=== PATIENT | male | born 1955 | race Caucasian/White ===

== ENCOUNTER → 2016-02-17 | Outpatient (CLI) | payer OTHER ==
[~2016-02-17] MED LIST: ACET-1138 PO; ACET-1311 PO; ALBUAER INH; ALPR1SUP6 INT UTER; ATEN-175 PO; ATR10 PO; BUPR-83 PO; CAPS0.022 TOP; CHOL1000 PO; CHOLCRY PO; CLC100 PO; CYCL10TA6 PO; CYM60 PO; DICL50TA3 PO; DLD/2 PO; DOXY100C76 PO; ENOX30IN4 SQ; GABA-113 PO; GLCSR500 PO; HYDR2TAB48 PO; HYDR4TAB2 PO; LIDO1CRE31 TOP; LOSA1TAB38 PO; LVNIS30 SC; LVNIS30 SQ; MOME220A INH; NRN/300 PO; OMEP20CA9 PO; OMEP40CA41 PO; OXYC-164 PO; OXYC1TAB3 PO; PROP80TA2 PO; SILD100T PO; SPRIN/30 INH; TAMS0.4C38 PO; TERA1CAP63 PO; TRAM-10 PO; TRAZ100T29 PO; ULT50X PO; VNTHFA/IN PO; WARF2TAB PO; WLLSR150 PO; ZOLP5TAB PO
[2016-02-17 10:32] LABS: PROTHROMBIN TIME (PATIENT) 10.8 SECONDS (9.0-12.0)
== END | disposition home or self-care (01) ==
LOC: C.LABSPEC 09:53
PROVIDERS: ATTEND Physical Medicine & Rehabilitation Sports Medicine
DX: Z79.01 Long term (current) use of anticoagulants (principal)

== ENCOUNTER → 2016-02-19 | Outpatient (CLI) | payer OTHER ==
[~2016-02-19] MED LIST changes: -OXYC-164 PO
[2016-02-19 10:30] LABS: PROTHROMBIN TIME (PATIENT) 10.6 SECONDS (9.0-12.0)
== END | disposition home or self-care (01) ==
LOC: C.LABSPEC 09:25
PROVIDERS: ATTEND Physical Medicine & Rehabilitation Sports Medicine
DX: Z79.01 Long term (current) use of anticoagulants (principal)

== ENCOUNTER 2016-02-21 23:29 | Emergency (ER) | payer OTHER ==
[~2016-02-21] VITALS: Ht 180.3 cm; Wt 118.2 kg
[~2016-02-21 23:29] MED LIST changes: -ACET-1138 PO; -ACET-1311 PO; -ALBUAER INH; -ALPR1SUP6 INT UTER; -ATR10 PO; -CHOL1000 PO; -CLC100 PO; -CYM60 PO; -DICL50TA3 PO; -DLD/2 PO; -DOXY100C76 PO; -ENOX30IN4 SQ; -GABA-113 PO; -GLCSR500 PO; -HYDR2TAB48 PO; -HYDR4TAB2 PO; -LIDO1CRE31 TOP; -LOSA1TAB38 PO; -LVNIS30 SQ; -MOME220A INH; -OMEP20CA9 PO; -OXYC1TAB3 PO; -PROP80TA2 PO; -SILD100T PO; -SPRIN/30 INH; -TAMS0.4C38 PO; -TRAM-10 PO; -ULT50X PO; -WLLSR150 PO
[2016-02-21 23:33] VITALS: TEMP 36.6; Ht 180.3 cm; Wt 118.2 kg
[2016-02-21] MEDS ORDERED: ONDANSETRON INJ 2 MG/ML 2 ML VIAL IV STA (23:43)
[2016-02-21] MEDS ORDERED: MoRPHine SULFATE 4 MG/ML 1 ML CARP\\VIAL IV STA (23:43)
[2016-02-21] MEDS ORDERED: SODIUM CHLORIDE 0.9% 1000ML 1,000 ML IV STA (23:43)
[2016-02-22] MEDS ORDERED: WARF2TAB PO (00:09)
[2016-02-22] MEDS ORDERED: ZOLP5TAB PO (00:10)
[2016-02-22] MEDS ORDERED: ENOX30IN4 SQ (00:14)
[2016-02-22 00:40] LABS: BASO % 0.2 %; BASO ABS # 0.01 K/uL (0-0.2); COMPLETE YES; HEMATOCRIT 32.9 % (42-52); LYMPH % 20.8 %; MEAN CORPUSCULAR HEMOGLOBIN 28.7 pg (25-34); MEAN CORPUSCULAR HGB CONC 33.7 g/dl (32-36); MEAN PLATELET VOLUME 8.7 fL (7.4-10.4); MONO % 15.4 %; NEUT % 57.6 %; PLATELET COUNT 210 K/uL (130-400); RED BLOOD COUNT 3.87 M/uL (4.7-6.1); WHITE BLOOD COUNT 6.25 K/uL (4.8-10.8)
[2016-02-22 00:54] LABS: PARTIAL THROMBOPLASTIN RATIO 1.2; PROTHROMBIN TIME (PATIENT) 10.3 SECONDS (9.0-12.0)
[2016-02-22 01:03] LABS: BUN/CREATININE RATIO 16.4 (10-20); CALCIUM 8.7 mg/dl (8.5-10.1); CREATININE 1.1 mg/dl (0.60-1.40); POTASSIUM 4.2 mmol/L (3.5-5.1)
[2016-02-22 01:05] LABS: ALB/GLOB RATIO 0.9 (0.9-2); C-REACTIVE PROTEIN 5.11 mg/dl (0-0.29)
[2016-02-22] MEDS ORDERED: OXYC1TAB3 PO (01:59)
[2016-02-22] MEDS ORDERED: OXYCODONE IR HOME PACK PO ONE (02:00)
--- NOTE | 2016-02-22 02:02 | EMERGENCY ROOM VISIT NOTE ---
History First contact with patient: 23:35 Chief Complaint: WOUND INFECTION Stated Complaint: LF LEG POSSIBLE INFECTION,FADIA 02-10 Nursing Triage Summary: Pt reports yesterday he was unable to move knee and do his exercises. Had left knee surgery February 10. Area is reddened and warm. Pt reports that knee is stiff. History of Present Illness The patient is a 61 year old male who presents to the Emergency Department by private vehicle for evaluation of his LEFT knee pain and swelling. The patient reports a total knee arthroplasty performed on 02/[address] Godoy. He had been doing well and physical therapy. He reports that yesterday he noticed increasing pain to the anterior surface knee. He reports that his red and warm as well as tender to touch. He reports decreasing range of motion secondary to discomfort and swelling. He denies a fevers or chills. He rates his current discomfort as a 10/10. He is currently using Lovenox for anticoagulation purposes to prevent development of DVT. He is currently out of his pain medication. The patient denies any fevers, chills, chest pain, palpitations, shortness breath, lethargic streaking, nausea, vomiting, or abdominal pain. Review of Systems A complete 10-point Review of Systems was discussed with the patient, with pertinent positives and negatives listed in the History of Present Illness. All remaining Review of Systems questions can be considered negative unless otherwise specified. Past Medical/Surgical History Medical Problems: (1) Abdominal pain (2) Asthma, Unspecified (3) Hypertension Nos (4) Left knee DJD (5) MRSA infection (6) Rheumatoid Arthritis Surgical Problems: (1) Carpal Tunnel Syndrome Family History Hypertension Social History Smoking Status: Never Smoker Smokeless Tobacco Use: No Alcohol Use: none Drug Use: none Marital Status: Housing Status: lives with family Occupation Status: unemployed Current/Historical Medications Scheduled Atenolol (Tenormin), 100 MG PO BID Bupropion (Wellbutrin), 150 MG PO QAM Capsaicin (Capsaicin), 0.25 % TOP BID Cholecalciferol (Bulk) (Cholecalciferol), 1,000 PO QAM Cyclobenzaprine Hcl (Flexeril), 1 TAB PO BID Duloxetine HCl (Duloxetine HCl), 1 TAB PO QAM Enoxaparin (Lovenox), 30 MG SQ Q12H Gabapentin (Neurontin), 300 MG PO BID Losartan Potassium (Cozaar), 100 MG PO QAM Mometasone Furoate (Inhalation (Asmanex Twisthaler 120 Me), 1 PUFF INH DAILY Omeprazole (Prilosec), 1 CAP PO QAM Propranolol (Inderal), 80 MG PO BID Terazosin Hcl (Hytrin), 10 MG PO HS Trazodone Hcl (Trazodone), 100 MG PO HS Scheduled PRN Albuterol Hfa (Ventolin Hfa), Unknown Dose INH QID PRN for Shortness of Breath Oxycodone Ir (Roxicodone Ir), 1-2 TAB PO Q4H PRN for Pain Zolpidem Tartrate (Ambien), 5-10 MG PO HS PRN for Anxiety/Insomnia Allergies Coded Allergies: Sulfa Antibiotics (Verified Allergy, Unknown, RASH / ITCHINESS, 02/22/16) Physical Exam Vital Signs Date Time Temp Pulse Resp B/P Pulse Ox O2 Delivery O2 Flow Rate FiO2 02/22/16 02:19 91 18 137/85 95 02/22/16 01:24 83 20 120/90 94 Room Air 02/21/16 23:33 36.6 73 20 138/77 100 Room Air Pain Rating (0-10): 10 Physical Exam VITAL SIGNS - Vital signs and nursing notes were reviewed. GENERAL - 61-year-old male appearing his stated age and in noticeable discomfort throughout the exam. MUSCULOSKELETAL - left knee with well healing incision noted midline. Kyle are in place. There is mild granular tissue with erythema noted around the incision. Moderate edema noted throughout the joint. Minimal warmth to touch. No ecchymosis. There is proximal ecchymosis. No lymphangitic streaking. NEUROLOGIC/VASCULAR - Neurovascularly intact distally with +3/5 dorsalis pedis pulses palpated bilaterally. Normal sensation to light and sharp touch appreciated distally. Medical Decision & Procedures ER Provider Diagnostic Interpretation: Small joint effusion with obvious recent postoperative kyle in place. No other acute findings per my interpretation. Radiologist's impression unavailable at the time of dictation. Radiological imaging and reports were reviewed by myself. Radiologist's Interpretation per [facility] as follows: US VENOUS LEFT LOWER EXTREMITY: Limited visualization of the mid to distal femoral vein due to edema. No evidence of DVT in the visualized left lower extremity. Complex fluid collection in the anterior medial left knee adjacent to incision site, measuring 11.5 x 2.3 x 7 cm, likely hematoma, although extremely is indeterminate. Correlate for infection. Laboratory Results 02/22/16 00:28 Red Blood Count 3.87, Mean Corpuscular Volume 85.0, Mean Corpuscular Hemoglobin 28.7, Mean Corpuscular Hemoglobin Concent 33.7, Mean Platelet Volume 8.7, Neutrophils (%) (Auto) 57.6, Lymphocytes (%) (Auto) 20.8, Monocytes (%) (Auto) 15.4, Eosinophils (%) (Auto) 5.0, Basophils (%) (Auto) 0.2, Neutrophils # (Auto ) 3.61, Lymphocytes # (Auto) 1.30, Monocytes # (Auto) 0.96, Eosinophils # (Auto ) 0.31, Basophils # (Auto) 0.01 02/22/16 00:28 Test 02/22/16 00:28 02/22/16 00:29 White Blood Count 6.25 K/uL (4.8-10.8) Red Blood Count 3.87 M/uL (4.7-6.1) Hemoglobin 11.1 g/dL (14.0-18.0) Hematocrit 32.9 % (42-52) Mean Corpuscular Volume 85.0 fL (80-100) Mean Corpuscular Hemoglobin 28.7 pg (25-34) Mean Corpuscular Hemoglobin Concent 33.7 g/dl (32-36) Platelet Count 210 K/uL (130-400) Mean Platelet Volume 8.7 fL (7.4-10.4) Neutrophils (%) (Auto) 57.6 % Lymphocytes (%) (Auto) 20.8 % Monocytes (%) (Auto) 15.4 % Eosinophils (%) (Auto) 5.0 % Basophils (%) (Auto) 0.2 % Neutrophils # (Auto) 3.61 K/uL (1.4-6.5) Lymphocytes # (Auto) 1.30 K/uL (1.2-3.4) Monocytes # (Auto) 0.96 K/uL (0.11-0.59) Eosinophils # (Auto) 0.31 K/uL (0-0.5) Basophils # (Auto) 0.01 K/uL (0-0.2) RDW Standard Deviation 40.9 fL (36.4-46.3) RDW Coefficient of Variation 13.3 % (11.5-14.5) Immature Granulocyte % (Auto) 1.0 % Immature Granulocyte # (Auto) 0.06 K/uL (0.00-0.02) Erythrocyte Sedimentation Rate 30 mm/hr (0-14) Prothrombin Time 10.3 SECONDS (9.0-12.0) Prothromb Time International Ratio 1.0 (0.9-1.1) Activated Partial Thromboplast Time 32.1 SECONDS (21.0-31.0) Partial Thromboplastin Ratio 1.2 Anion Gap 7.0 mmol/L (3-11) Est Creatinine Clear Calc Drug Dose 93.4 ml/min Estimated GFR () 84.1 Estimated GFR (Non- 72.6 BUN/Creatinine Ratio 16.4 (10-20) Calcium Level 8.7 mg/dl (8.5-10.1) Magnesium Level 2.0 mg/dl (1.8-2.4) Total Bilirubin 0.5 mg/dl (0.2-1) Aspartate Amino Transf (AST/SGOT) 18 U/L (15-37) Alanine Aminotransferase (ALT/SGPT) 29 U/L (12-78) Alkaline Phosphatase 131 U/L (45-117) C-Reactive Protein 5.11 mg/dl (0-0.29) Total Protein 7.1 gm/dl (6.4-8.2) Albumin 3.3 gm/dl (3.4-5.0) Globulin 3.8 gm/dl (2.5-4.0) Albumin/Globulin Ratio 0.9 (0.9-2) Bedside Lactic Acid Venous 1.44 mmol/L (0.90-1.70) Medications Administered Medications (Trade) Dose Ordered Sig/Tash Route Start Time Stop Time Status Last Admin Dose Admin Sodium Chloride (Nss 1000ml) 1,000 ml @ 125 mls/hr Q8H STAT IV 02/21/16 23:43 02/22/16 03:34 DC 02/22/16 00:41 125 MLS/HR Morphine Sulfate (MoRPHine SULFATE INJ) 4 mg NOW STAT IV 02/21/16 23:43 02/21/16 23:46 DC 02/22/16 00:41 4 MG Ondansetron HCl (Zofran Inj) 4 mg NOW STAT IV 02/21/16 23:43 02/21/16 23:46 DC 02/22/16 00:41 4 MG Oxycodone HCl (Roxicodone Immediate Rel 5MG Home Pack) 1 homepack UD ONCE PO 02/22/16 02:00 02/22/16 02:01 DC 02/22/16 02:14 1 HOMEPACK ED Course Patient was seen and evaluated by myself. Labs were drawn, saline lock in place. The patient was hydrated with normal saline at a rate of 125 mL/h. He was treated with 4 mg morphine and 4 mg Zofran for pain. X-ray of the knee and ultrasound of the LEFT lower extremity was obtained. Laboratory results demonstrate no acute leukocytosis, worrisome anemia, or bandemia. ESR and CRP are minimally elevated. Imaging results above. Case was reviewed with my taking physician who agrees with diagnostic approach and treatment plan. I did discuss the case with the on-call orthopedic provider for [facility], Dr. Calderón. He suggests having the patient stop his Lovenox today and follow-up on Tuesday with Dr. Godoy in office. Patient was educated on worrisome symptoms for return visit to the emergency department. Patient discharged home afebrile and in good condition. Medical Decision Given the patient's presentation and exam findings, I did elect to perform the above-mentioned workup. The patient presents today after increasing pain and swelling to the LEFT knee after total knee arthroplasty performed on the of last month. He has no fever leukocytosis. He doesn't mild elevation of his ESR and CRP. There is no work intact. There is no lymphatic streaking. His imaging studies not impressive for acute intra-articular effusion or DVT. There is concern for an anterior hematoma. Because of this, it was felt that the patient will need to discontinue his Lovenox for now. This is at the recommendation of orthopedics surgery. He will follow-up with his surgeon on Tuesday. He was provided pain medication for home. The patient was educated on worrisome symptoms for return visit to the emergency department. Patient discharged home afebrile and in good condition. In the evaluation and treatment of this patient, the following differential diagnoses were considered: Patellar Fracture, Tibial Plateau Fracture, Distal Femur Fracture, ACL Injury, PCL Injury, Collateral Ligament Injury, Pes Anserine Bursitis, Maisonneuve Fracture. Impression Primary Impression: Postoperative pain of left knee Additional Impression: Postoperative hematoma Departure Information Dispostion Home / Self-Care Condition GOOD Prescriptions Oxycodone Ir (Roxicodone Ir) 5 Mg Tab 1-2 TAB PO Q4H Y for Pain, #24 TAB For Initial Treatment Prov: Mark Devlin PA-C 02/22/16 Referrals Jesica-Doc Stoner M.D. (PCP) George Godoy M.D. Patient Instructions A Signature Page, [facility] Additional Instructions You have been treated in the Emergency Department for Postoperative Knee Pain - Hematoma. You have received pain medicine in the emergency department which impairs your ability to operate a vehicle. It is illegal for you to drive after receiving these medicines. You have been prescribed OxyIR to be used for pain control. This is a narcotic medication. You cannot drive or consume alcohol while on this medicine. This medicine should only be used for pain that cannot be controlled with over-the- counter pain medicines. Please do not use your Lovenox today (Tuesday). Call your orthopedic surgeon for a follow-up appointment on Tuesday as discussed. For pain control, you can use the following [id number] medicines (if >12 yo): - Regular strength (325mg/tab) Tylenol (acetaminophen) 2 tabs every 4-6 hours as needed. Do not exceed 12 tablets in a 24 hour period. Avoid taking more than 4 grams (4000 mg) of Tylenol per day. This includes any other sources of acetaminophen you may take on a regular basis. - Regular strength (200 mg/tab) Advil (ibuprofen) 1-2 tabs every 4-6 hours as needed. Do not exceed a dose of 3200 mg per day. If this is a recent injury (<24 hrs), ice can be applied to the area of pain for the first 3 days to help decrease pain and inflammation. Ice massages can be performed by freezing water in a paper cup, peeling back the cup to expose the ice and then massaging over the affected area. Return to the Emergency Department if your current symptoms worsen despite treatment course outlined above.
[2016-02-22 02:19] VITALS: BP 137/85; PULSE 91; O2SAT 95
--- NOTE | 2016-02-22 07:53 | DIAGNOSTIC IMAGING REPORT ---
LEFT KNEE 3 VIEWS CLINICAL HISTORY: pain/swelling s/p TKA COMPARISON STUDY: Left knee 03/02/2015. FINDINGS: Interval placement of a left total knee arthroplasty. The hardware appears intact. Skin pan are in place. No abnormal periprosthetic lucency. No fracture or dislocation. Anterior soft tissue swelling with an associated small joint effusion. IMPRESSION: Small joint effusion and anterior soft tissue swelling within the left knee. Interval left total knee arthroplasty. Electronically signed by: Aamir Sanders M.D. 02/22/2016 7:51 AM Dictated Date/Time: 02/22/2016 7:50 AM
--- NOTE | 2016-02-22 08:52 | DIAGNOSTIC IMAGING REPORT ---
LEFT LOWER EXTREMITY VENOUS DOPPLER HISTORY: Left leg pain/swelling s/p TKA COMPARISON STUDY: Bilateral leg venous Doppler 10/31/2014. FINDINGS: There is normal compressibility, flow, and augmentation within the visualized left lower extremity deep venous system. The mid to distal superficial femoral vein is suboptimally evaluated due to the soft tissue swelling at this location. However, this is likely patent. There is an 11.5 x 7.0 x 2.3 cm complex fluid collection within the anterior medial left knee adjacent to the incision site. IMPRESSION: No DVT within the left lower extremity. An 11.5 x 7.0 x 2.3 cm indeterminate complex fluid collection within the anterior medial left knee adjacent to the incision site. This favors a postoperative hematoma. Clinical correlation recommended to assess for an infectious process. Electronically signed by: Aamir Sanders M.D. 02/22/2016 8:50 AM Dictated Date/Time: 02/22/2016 8:47 AM
[2016-06-20] MEDS ORDERED: ATR10 PO (12:02)
[2016-06-20] MEDS ORDERED: DICL50TA3 PO (12:02)
[2016-06-20] MEDS ORDERED: CHOL1000 PO (12:02)
[2016-06-20] MEDS ORDERED: SPRIN/30 INH (12:02)
[2016-06-20] MEDS ORDERED: CYM60 PO (14:54)
[2016-06-20] MEDS ORDERED: PROP80TA2 PO (14:54)
[2016-06-20] MEDS ORDERED: MOME220A INH (15:44)
[2016-07-20] MEDS ORDERED: GABA-113 PO (08:16)
== END 2016-02-22 02:20 | disposition home or self-care (01) ==
LOC: C.EDB 23:30 → C.EDA 02-22 02:20
DX: G89.18 Other acute postprocedural pain (principal); M96.840 Postprocedural hematoma of a musculoskeletal structure following a musculoskeletal system procedure; Z96.652 Presence of left artificial knee joint; J45.909 Unspecified asthma, uncomplicated; I10 Essential (primary) hypertension; M06.9 Rheumatoid arthritis, unspecified; Z86.14 Personal history of Methicillin resistant Staphylococcus aureus infection; Z79.899 Other long term (current) drug therapy

== ENCOUNTER → 2016-02-23 | Outpatient (CLI) | payer OTHER ==
[~2016-02-23] MED LIST changes: +ACET-1311 PO; +ALBUAER INH; +ALPR1SUP6 INT UTER; +ATR10 PO; +CHOL1000 PO; +CLC100 PO; +CYM60 PO; +DICL50TA3 PO; +DLD/2 PO; +DOXY100C76 PO; +ENOX30IN4 SQ; +GABA-113 PO; +GLCSR500 PO; +HYDR2TAB48 PO; +HYDR4TAB2 PO; +LIDO1CRE31 TOP; +LOSA1TAB38 PO; -LVNIS30 SC; +LVNIS30 SQ; +MOME220A INH; +OMEP20CA9 PO; +OXYC1TAB3 PO; +PROP80TA2 PO; +SPRIN/30 INH; +TAMS0.4C38 PO; +TRAM-10 PO; +ULT50X PO; -WARF2TAB PO; +WLLSR150 PO
--- NOTE | 2016-02-23 16:39 | DIAGNOSTIC IMAGING REPORT ---
LEFT LOWER EXTREMITY VENOUS DOPPLER HISTORY: LEFT LEG , PAIN, POST-OP TKA COMPARISON STUDY: Left leg venous doppler 02/22/2016. FINDINGS: There is normal compressibility, flow, and augmentation within the left lower extremity deep venous system. Redemonstration of the 13 x 7 cm complex fluid collection within the anterior knee. IMPRESSION: No DVT within the left lower extremity. Redemonstration of the 13 x 7 cm complex fluid collection within the anterior knee. Electronically signed by: Aamir Sanders M.D. 02/23/2016 4:36 PM Dictated Date/Time: 02/23/2016 4:35 PM
== END | disposition home or self-care (01) ==
LOC: C.ULTR 15:44
PROVIDERS: ATTEND Physical Medicine & Rehabilitation Sports Medicine
DX: M17.0 Bilateral primary osteoarthritis of knee (principal)

== ENCOUNTER 2016-03-12 10:31 | Inpatient (IN) | payer OTHER ==
[~2016-03-12] VITALS: Ht 180.3 cm; Wt 118.0 kg
[~2016-03-12 10:31] MED LIST changes: -ACET-1311 PO; -ALBUAER INH; -ALPR1SUP6 INT UTER; -ATR10 PO; -CHOL1000 PO; -CLC100 PO; -CYM60 PO; -DICL50TA3 PO; -DLD/2 PO; -DOXY100C76 PO; -GABA-113 PO; -GLCSR500 PO; -HYDR2TAB48 PO; -HYDR4TAB2 PO; -LIDO1CRE31 TOP; -LOSA1TAB38 PO; -LVNIS30 SQ; -MOME220A INH; -OMEP20CA9 PO; -PROP80TA2 PO; -SPRIN/30 INH; -TAMS0.4C38 PO; -TRAM-10 PO; -ULT50X PO; -WLLSR150 PO
[2016-03-12] MEDS ORDERED: SODIUM CHLORIDE 0.9% 1000ML 2,000 ML IV STA (10:52)
[2016-03-12] MEDS ORDERED: NOREPINEPHRINE BITARTRATE 1 MG/ML 4 ML VIAL ONE (10:54)
[2016-03-12] MEDS ORDERED: OPTIRAY 320 IV PRN (11:00)
[2016-03-12] MEDS ORDERED: NOREPINEPHRINE BIT INJ 8 MG in DEXTROSE 5% 500ML 500 ML IV PRN (11:00)
[2016-03-12 11:07] LABS: ISTAT CREATININE 0.7 mg/dl (0.6-1.3); ISTAT HEMOGLOBIN 6.8 g/dl (14.0-18.0); ISTAT IONIZED CALCIUM 0.78 mmol/l (1.12-1.32)
[2016-03-12 11:27] LABS: ISTAT CREATININE 1.6 mg/dl (0.6-1.3); ISTAT HEMOGLOBIN 11.9 g/dl (14.0-18.0); ISTAT IONIZED CALCIUM 1.21 mmol/l (1.12-1.32)
[2016-03-12 11:39] LABS: COMPLETE YES
--- NOTE | 2016-03-12 11:46 | DIAGNOSTIC IMAGING REPORT ---
CT SCAN OF THE BRAIN WITHOUT IV CONTRAST CLINICAL HISTORY: Syncope. COMPARISON STUDY: MRI of the brain dated 10/06/2010. TECHNIQUE: Unenhanced axial CT scan of the brain is performed from the vertex to the skull base. Automated dose control exposure was utilized. FINDINGS: Brain parenchyma: The brain parenchyma is normal in appearance. There is no hemorrhage, mass effect, or evidence of acute territorial ischemia by CT criteria. Givens-white matter is preserved. No extra-axial fluid collection is seen. Ventricles, sulci, cisterns: Normal in configuration. Intracranial vasculature: The visualized intracranial vasculature at the skull base is normal in appearance. Calvarium: There is no depressed calvarial fracture. Sinuses and mastoids: The visualized paranasal sinuses are clear. The mastoid air cells are well pneumatized. Orbits: The bony orbits are grossly intact. IMPRESSION: There is no hemorrhage, mass effect, or evidence of acute territorial ischemia by CT criteria. Electronically signed by: Chaitanya Soliman M.D. 03/12/2016 11:45 AM Dictated Date/Time: 03/12/2016 11:43 AM
[2016-03-12 11:51] LABS: PROTHROMBIN TIME (PATIENT) 10.7 SECONDS (9.0-12.0)
--- NOTE | 2016-03-12 11:53 | DIAGNOSTIC IMAGING REPORT ---
CT ANGIOGRAM OF THE CHEST CLINICAL HISTORY: Syncope. COMPARISON STUDY: Chest x-ray dated 09/28/2015. TECHNIQUE: Following the IV administration of 120 cc of Optiray 320, CT angiogram of the chest was performed from the upper abdomen to the thoracic inlet utilizing the pulmonary embolus protocol. Images are reviewed in the axial, sagittal, and coronal planes. 3-D MIPS images are created and assessed. IV contrast was administered without complication. CT DOSE: 1401.54 mGycm FINDINGS: Thyroid: Imaged portions of the thyroid gland are normal in size and attenuation. Thoracic aorta: The thoracic aorta is normal in caliber and demonstrates standard 3-vessel arch anatomy. No dissection is seen. Pulmonary vasculature: The pulmonary trunk is normal in caliber. There are no filling defects identified in main, lobar, or proximal segmental pulmonary branches to suggest pulmonary embolus. Evaluation of the peripheral branches is degraded by suboptimal contrast opacification. Heart: The heart is enlarged and without pericardial effusion. There are coronary artery calcifications. Lungs and pleural spaces: Evaluation of the lung parenchyma is modestly degraded by respiratory motion artifact. There is moderate emphysema and mild apical scarring. No airspace consolidation is seen typical for pneumonia. No pleural effusion is identified. There is minimal dependent atelectasis. The trachea and central airways are clear. Mediastinum: There is no mediastinal lymphadenopathy. Nell: Clear. Axillae: There is no axillary lymphadenopathy. Upper abdomen: There is a small hiatal hernia. The gastric mucosa appears thickened and hyperemic as well as slightly irregular. This is greatest in the proximal body. Partially visualized upper abdominal viscera is otherwise within normal limits. Skeletal structures: No lytic or blastic bony lesions are seen. IMPRESSION: 1. There is no evidence of pulmonary embolus in the main, lobar, or proximal segmental pulmonary arteries. 2. Cardiomegaly and emphysema. 3. There is no airspace consolidation or pleural effusion. 4. The gastric mucosa appears thickened, hyperemic, and somewhat irregular. Correlate clinically for evidence of gastritis. This is not well assessed by CT. Consider follow-up with endoscopy for further assessment and to exclude the possibility of underlying mass. Electronically signed by: Chaitanya Soliman M.D. 03/12/2016 11:52 AM Dictated Date/Time: 03/12/2016 11:42 AM
[2016-03-12 11:54] LABS: BLOOD UREA NITROGEN 24 mg/dl (7-18); BUN/CREATININE RATIO 13.1 (10-20); CALCIUM 8.7 mg/dl (8.5-10.1); CARBON DIOXIDE 26 mmol/L (21-32); CHLORIDE 103 mmol/L (98-107); GLUCOSE 182 mg/dl (70-99); MAGNESIUM 2.1 mg/dl (1.8-2.4); POTASSIUM 4.7 mmol/L (3.5-5.1); SODIUM 137 mmol/L (136-145)
[2016-03-12 11:55] LABS: ALT/SGPT 22 U/L (12-78); AST/SGOT 13 U/L (15-37)
[2016-03-12 11:56] LABS: BASO % 0.3 %; BASO ABS # 0.02 K/uL (0-0.2); COMPLETE YES; EOS % 1.9 %; HEMATOCRIT 35.7 % (42-52); IG% 0.7 %; LYMPH % 24.7 %; LYMPH ABS # 1.68 K/uL (1.2-3.4); MEAN CELL VOLUME 84.4 fL (80-100); MEAN CORPUSCULAR HEMOGLOBIN 28.6 pg (25-34); MEAN CORPUSCULAR HGB CONC 33.9 g/dl (32-36); MEAN PLATELET VOLUME 8.8 fL (7.4-10.4); MONO % 8.2 %; NEUT % 64.2 %; PLATELET COUNT 204 K/uL (130-400); RED BLOOD COUNT 4.23 M/uL (4.7-6.1); WHITE BLOOD COUNT 6.81 K/uL (4.8-10.8)
[2016-03-12 12:00] LABS: ALKALINE PHOSPHATASE 130 U/L (45-117); CKMB/CK RATIO 3.2 (0-3.0)
--- NOTE | 2016-03-12 12:00 | DIAGNOSTIC IMAGING REPORT ---
CHEST ONE VIEW PORTABLE CLINICAL HISTORY: Fever. Dizziness. COMPARISON STUDY: Chest radiograph September 28, [address] performed earlier today. FINDINGS: Lung volumes are normal. There is no pneumothorax or pleural effusion. Mild cardiomegaly is noted. There is no evidence of overt edema. Interstitial thickening is likely within normal limits or chronic. IMPRESSION: No acute cardiopulmonary findings. Electronically signed by: Alberto Suarez M.D. 03/12/2016 11:59 AM Dictated Date/Time: 03/12/2016 11:57 AM
[2016-03-12] MEDS ORDERED: ACET-1311 PO (12:02)
[2016-03-12] MEDS ORDERED: WLLSR150 PO (12:02)
[2016-03-12] MEDS ORDERED: LIDO1CRE31 TOP (12:02)
[2016-03-12] MEDS ORDERED: ALPR1SUP6 INT UTER (12:18)
--- NOTE | 2016-03-12 13:47 | History and Physical ---
History & Physical Date & Time of Service: Mar 12, 2016 at 13:44 Chief Complaint: Dizziness Primary Care Physician: Doc Morejon M.D. History of Present Illness This is a 61 yo M with PMHx rheumatoid arthritis, osteoarthritis, s/p L TKA done on Feb 11, [address] Godoy, who presents after an episode of syncope this morning around 9:30 am. Pt reports his was in the house and witnessed the event, no injury to the head sustained during episode. Pt has been doing well with the knee since the surgery, but developed pain in the knee last night after taking a walk in his garage. He denies trauma or fall. He has not been participating in formal PT/OT, but has been doing the exercises in his home as directed. Today his knee is so painful he can barely bend it more than 15 degrees. His knee is swollen and warm to the touch although not red. He has been using sq lovenox injections twice daily for anticoagulation. His next follow up appointment is scheduled for this upcoming Tuesday in Dr. Godoy's office. He denies any recent illnesses or sick contacts, no shortness of breath or chest pain. In the ED the pts SBP was in the 70s, was administered 2 L NSS wide open with slight improvement. Blood cultures, UA and Ucx obtained. No lactic acid. He was started on a levophed gtt, currently running at 0.03 mcg/hr. CXR, CT of the head, CTA chest were completed and negative for acute findings. BP is currently stable at 104/64. Past Medical/Surgical History Medical Problems: (1) Abdominal pain Status: Resolved (2) Asthma, Unspecified Status: Chronic (3) Hypertension Nos Status: Chronic (4) Rheumatoid Arthritis Status: Chronic Surgical Problems: (1) Carpal Tunnel Syndrome Status: Chronic Family History Hypertension Social History Smoking Status: Former Smoker Drug Use: none Marital Status: Housing status: lives with family Occupational Status: unemployed Immunizations History of Influenza Vaccine: Yes Influenza Vaccine Date: Nov 16, 2010 History of Tetanus Vaccine?: Unknown History of Pneumococcal: No History of Hepatitis B Vaccine: Unknown Multi-Drug Resistant Organisms History of MDRO: Yes Type of MDRO: MRSA Allergies Coded Allergies: Sulfa Antibiotics (Verified Allergy, Unknown, RASH / ITCHINESS, 02/22/16) Home Medications Scheduled Bupropion HCl (Bupropion HCl Sr), 150 MG PO QAM Capsaicin (Capsaicin), 0.25 % TOP BID Cholecalciferol (Vitamin D3), 2 TAB PO DAILY Duloxetine HCl (Duloxetine HCl), 60 MG PO QAM Enoxaparin (Lovenox), 30 MG SQ Q12H Gabapentin (Neurontin), 600 MG PO TID Losartan Potassium (Cozaar), 100 MG PO QAM Mometasone Furoate (Inhalation (Asmanex Twisthaler 120 Me), 1 PUFF INH DAILY Omeprazole (Prilosec), 40 MG PO BID Propranolol (Inderal), 80 MG PO BID Terazosin Hcl (Hytrin), 10 MG PO HS Tiotropium Saxe (Spiriva Handihaler), 1 CAP INH DAILY Scheduled PRN Acetaminophen (Tylenol), 650 MG PO BID PRN for PRN Albuterol Hfa (Ventolin Hfa), 2 PUFF PO QID PRN for Shortness of Breath Alprostadil (Vasodilator) ([place]), 1,000 MCG INT UTER DAILY PRN for PRN Cyclobenzaprine Hcl (Flexeril), 0.5 TAB PO TID PRN for Muscle Spasms Diclofenac (Voltaren), 50 MG PO DAILY PRN for Pain Hydroxyzine HCl (Hydroxyzine HCl), 10 MG PO BID PRN for Anxiety Lidocaine (Lidocaine), 1 DOSE TOP 5XD PRN for PRN Review of Systems Constitutional: No chills, No fever, No sweats ENT: No nasal symptoms, No sore throat, No tinnitus Respiratory: No cough, No dyspnea on exertion, No shortness of breath, No wheezing Cardiovascular: No chest pain, No palpitations Abdomen: No nausea, No pain, No vomiting Musculoskeletal: + joint pain (Left knee), + swelling (left knee), No calf pain Genitourinary - Male: No dysuria Neurologic: No balance problems, No numbness/tingling, No weakness Integumentary: No rash Physical Exam Vital Signs Date Time Temp Pulse Resp B/P Pulse Ox O2 Delivery O2 Flow Rate FiO2 03/12/16 12:43 80 03/12/16 12:16 74 17 98 Nasal Cannula 2.0 03/12/16 12:13 101/74 03/12/16 12:06 78 15 91/73 98 Nasal Cannula 2.0 03/12/16 11:58 98/63 03/12/16 11:56 77 20 97 Nasal Cannula 2.0 03/12/16 11:49 110/67 03/12/16 11:41 79 16 97 Nasal Cannula 2.0 03/12/16 11:38 120/73 03/12/16 11:13 106/67 03/12/16 11:11 64 16 99 Nasal Cannula 2.0 03/12/16 11:10 97/65 03/12/16 11:06 63/42 03/12/16 11:01 72 15 99 Nasal Cannula 2.0 03/12/16 10:58 77/36 03/12/16 10:58 36.4 73 20 65/46 92 Room Air 03/12/16 10:57 68/32 03/12/16 10:55 96 Nasal Cannula 4.0 03/12/16 10:51 72 17 97 Nasal Cannula 2.0 03/12/16 10:50 71/34 03/12/16 10:47 53/34 03/12/16 10:41 77 16 96 Nasal Cannula 2.0 03/12/16 10:38 68/48 03/12/16 10:38 81 03/12/16 10:35 68/40 General Appearance: WD/WN, no apparent distress, + obese Head: normocephalic, atraumatic Eyes: PERRL, EOMI ENT: hearing grossly normal, + pertinent finding (mucous membranes dry) Neck: no adenopathy, no JVD Respiratory/Chest: lungs clear, no respiratory distress, no accessory muscle use Cardiovascular: regular rate, rhythm, no murmur, normal peripheral pulses Abdomen/GI: normal bowel sounds, non tender, soft, + pertinent finding ( abdominal hernia at midline, obese) Back: normal inspection Extremities/Musculoskelatal: no calf tenderness, no pedal edema, + pertinent finding (L TKA, surgical incision well healed, warm to touch, + edema, nonerythematous. + tenderness to light touch) Neurologic/Psych: alert, normal mood/affect, oriented x 3 Skin: normal color, warm/dry, + pertinent finding (multiple tattoos) Diagnostics Laboratory Results Results Past 24 Hours Test 03/12/16 10:45 03/12/16 10:49 03/12/16 10:50 03/12/16 10:55 Range/Units White Blood Count 4.8-10.8 K/uL Red Blood Count 4.7-6.1 M/uL Hemoglobin 14.0-18.0 g/dL Hematocrit 42-52 % Mean Corpuscular Volume 80-100 fL Mean Corpuscular Hemoglobin 25-34 pg Mean Corpuscular Hemoglobin Concent 32-36 g/dl Platelet Count 130-400 K/uL Mean Platelet Volume 7.4-10.4 fL Neutrophils (%) (Auto) % Lymphocytes (%) (Auto) % Monocytes (%) (Auto) % Eosinophils (%) (Auto) % Basophils (%) (Auto) % Neutrophils # (Auto) 1.4-6.5 K/uL Lymphocytes # (Auto) 1.2-3.4 K/uL Monocytes # (Auto) 0.11-0.59 K/uL Eosinophils # (Auto) 0-0.5 K/uL Basophils # (Auto) 0-0.2 K/uL RDW Standard Deviation 36.4-46.3 fL RDW Coefficient of Variation 11.5-14.5 % Immature Granulocyte % (Auto) % Immature Granulocyte # (Auto) 0.00-0.02 K/uL Red Blood Cell Morphology Prothrombin Time 9.0-12.0 SECONDS Prothromb Time International Ratio 0.9-1.1 Creatine Kinase MB Ratio 0-3.0 Bedside Hemoglobin 6.8 14.0-18.0 g/dl Bedside Hematocrit 20 42-52 % Bedside Sodium 150 135-144 mEq/L Bedside Potassium 2.3 3.3-5.0 mEq/L Bedside Chloride 116 101-112 mEq/L Bedside Total CO2 12 24-31 mEq/l Anion Gap 24.0 16-25 mmol/L Bedside Blood Urea Nitrogen 11 7-18 mg/dl Bedside Creatinine 0.7 0.6-1.3 mg/dl Bedside Glucose (other) 110 70-99 mg/dl Bedside Ionized Calcium (Nancy) 0.78 1.12-1.32 mmol/l Bedside Lactic Acid Venous 0.90 0.90-1.70 mmol/L Test 03/12/16 11:09 03/12/16 11:12 03/12/16 11:17 Range/Units Bedside Hemoglobin 11.9 14.0-18.0 g/dl Bedside Hematocrit 35 42-52 % Bedside Sodium 137 135-144 mEq/L Bedside Potassium 4.8 3.3-5.0 mEq/L Bedside Chloride 100 101-112 mEq/L Bedside Total CO2 26 24-31 mEq/l Anion Gap 16.0 8.0 3-11 mmol/L Bedside Blood Urea Nitrogen 24 7-18 mg/dl Bedside Creatinine 1.6 0.6-1.3 mg/dl Bedside Glucose (other) 186 70-99 mg/dl Bedside Ionized Calcium (Nancy) 1.21 1.12-1.32 mmol/l White Blood Count 6.81 4.8-10.8 K/uL Red Blood Count 4.23 4.7-6.1 M/uL Hemoglobin 12.1 14.0-18.0 g/dL Hematocrit 35.7 42-52 % Mean Corpuscular Volume 84.4 80-100 fL Mean Corpuscular Hemoglobin 28.6 25-34 pg Mean Corpuscular Hemoglobin Concent 33.9 32-36 g/dl Platelet Count 204 130-400 K/uL Mean Platelet Volume 8.8 7.4-10.4 fL Neutrophils (%) (Auto) 64.2 % Lymphocytes (%) (Auto) 24.7 % Monocytes (%) (Auto) 8.2 % Eosinophils (%) (Auto) 1.9 % Basophils (%) (Auto) 0.3 % Neutrophils # (Auto) 4.37 1.4-6.5 K/uL Lymphocytes # (Auto) 1.68 1.2-3.4 K/uL Monocytes # (Auto) 0.56 0.11-0.59 K/uL Eosinophils # (Auto) 0.13 0-0.5 K/uL Basophils # (Auto) 0.02 0-0.2 K/uL RDW Standard Deviation 40.7 36.4-46.3 fL RDW Coefficient of Variation 13.4 11.5-14.5 % Immature Granulocyte % (Auto) 0.7 % Immature Granulocyte # (Auto) 0.05 0.00-0.02 K/uL Prothrombin Time 10.7 9.0-12.0 SECONDS Prothromb Time International Ratio 1.0 0.9-1.1 Sodium Level 137 136-145 mmol/L Potassium Level 4.7 3.5-5.1 mmol/L Chloride Level 103 98-107 mmol/L Carbon Dioxide Level 26 21-32 mmol/L Blood Urea Nitrogen 24 7-18 mg/dl Creatinine 1.80 0.60-1.40 mg/dl Est Creatinine Clear Calc Drug Dose 56.8 ml/min Estimated GFR () 46.4 Estimated GFR (Non- 40.0 BUN/Creatinine Ratio 13.1 10-20 Random Glucose 182 70-99 mg/dl Calcium Level 8.7 8.5-10.1 mg/dl Magnesium Level 2.1 1.8-2.4 mg/dl Total Bilirubin 0.6 0.2-1 mg/dl Direct Bilirubin 0.1 0-0.2 mg/dl Aspartate Amino Transf (AST/SGOT) 13 15-37 U/L Alanine Aminotransferase (ALT/SGPT) 22 12-78 U/L Alkaline Phosphatase 130 45-117 U/L Total Creatine Kinase 25 39-308 U/L Creatine Kinase MB 0.8 0.5-3.6 ng/ml Creatine Kinase MB Ratio 3.2 0-3.0 Troponin I < 0.015 0-0.045 ng/ml Total Protein 7.1 6.4-8.2 gm/dl Albumin 3.1 3.4-5.0 gm/dl Bedside Lactic Acid Venous 1.59 0.90-1.70 mmol/L Microbiology Results 03/12/16 Blood Culture, Received Pending 03/12/16 Blood Culture, Received Pending Diagnostic Radiology CT head IMPRESSION: There is no hemorrhage, mass effect, or evidence of acute territorial ischemia by CT criteria. CT chest with contrast: IMPRESSION: 1. There is no evidence of pulmonary embolus in the main, lobar, or proximal segmental pulmonary arteries. 2. Cardiomegaly and emphysema. 3. There is no airspace consolidation or pleural effusion. 4. The gastric mucosa appears thickened, hyperemic, and somewhat irregular. Correlate clinically for evidence of gastritis. This is not well assessed by CT. Consider follow-up with endoscopy for further assessment and to exclude the possibility of underlying mass. CXR : IMPRESSION: No acute cardiopulmonary findings. EKG Vent. rate 77 BPM MA interval 164 ms QRS duration 108 ms QT/QTc 398/450 ms P-R-T axes 68 -4 47 NSR, No acute ST or ischemic changes Normal EKG Impression Assessment and Plan This is a 61 yo M with PMHx rheumatoid arthritis, osteoarthritis, s/p L TKA done on Feb 11, [address] Godoy, depression and anxiety who presents after an episode of syncope this morning around 9:30 am. Hypotensive episode, unknown cause - Pt has received 3 L NSS bolus infusions in the ED and was placed on a Levophed gtt at 0.03 mcg. Will try to get the patient off levophed as the cause of his hypotensive episode does not appear to be shock. - Will administer 1 L NSS again, and try to d/c the Levophed gtt. 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 Bowel thickening of the mucosa noted. - EKG normal - Will attempt to admit to tele, although ICU may be necessary if unable to get off levophed gtt S/p L TKA - Continue flexeril for muscle spasm - Will order tramadol for pain at this time - no narcotics with potential dropping BP - Will consult ortho for possible septic joint - Check Xray - Continue lovenox sq BID Depression/Anxiety - Cont BRIEF WRITER Wellbutrin SR 150 mg daily, celexa 60 mg daily - Hydroxyzine 10 mg BID for anxiety DVT ppx: cont lovenox injections Code Status: Full Code Disposition: From home Level of Care Telemetry Resuscitation Status FULL RESUSCITATION VTE Prophylaxis VTE Risk Assessment Done? Y/N: Yes Risk Level: Low Given or contraindicated: Enoxaparin (Lovenox)SQ
[2016-03-12] MEDS ORDERED: ONDANSETRON INJ 2 MG/ML 2 ML VIAL IV PRN (15:00)
[2016-03-12] MEDS ORDERED: hydrOXYzine HCL 10 MG TAB PO PRN (15:00)
--- NOTE | 2016-03-12 15:11 | EMERGENCY ROOM VISIT NOTE ---
History Report prepared by Javier: Silvestre Moon Under the Supervision of: Dr. Jono Watson D.O. First contact with patient: 10:36 Chief Complaint: ILLNESS Stated Complaint: DIZZINESS History of Present Illness The patient is a 61 year old male who presents to the Emergency Room with complaints of a resolved episode of syncope that occurred earlier this morning. As per EMS, the patient passed out in front of his family, who say that his eyes rolled behind his head and he was unconscious for several minutes. The patient also complains of intermittent dizziness and fatigue. As per nursing staff, the patient was hypotensive upon arrival. He does not have any new chest pain, shortness of breath, or abdominal pain. He also denies headache, cough, rhinorrhea, sore throat, change in vision, fevers, nausea, vomiting, diarrhea, pain with urination, weakness, and melena. The patient receives Lovenox injections. He denies any history of blood clots. The patient had knee surgery on February 10. He has not had any complications since the knee surgery other than pain. He has never had heart surgery and does not have a history of CHF or AAA. He has not started any new medications. The patient has a history of hypertension. He took his hypertension medications at 0430 this morning, and is not sure if he had extra doses. He did not take any pain medications this morning. He keeps the medications in a daily container. Source of History: patient, EMS, nursing staff Onset: this morning Position: other (global) Quality: other (syncope) Timing: resolved Associated Symptoms: + fatigue, No SOB, No abdominal pain, No chest pain, No cough, No diarrhea, No fevers, No headache, No melena, No nausea, No sorethroat, No urinary symptoms, No vomiting, No weakness Review of Systems See HPI for pertinent positives & negatives. A total of 10 systems reviewed and were otherwise negative. Past Medical & Surgical Medical Problems: (1) Abdominal pain (2) Asthma, Unspecified (3) Hypertension Nos (4) Hypotension arterial (5) Left knee DJD (6) MRSA infection (7) Rheumatoid Arthritis (8) Syncope and collapse Surgical Problems: (1) Carpal Tunnel Syndrome Family History Hypertension Social History Smoking Status: Never Smoker Alcohol Use: none Drug Use: none Marital Status: Housing Status: lives with family Occupation Status: unemployed Current/Historical Medications Scheduled Bupropion HCl (Bupropion HCl Sr), 150 MG PO QAM Capsaicin (Capsaicin), 0.25 % TOP BID Cholecalciferol (Vitamin D3), 2 TAB PO DAILY Duloxetine HCl (Duloxetine HCl), 60 MG PO QAM Enoxaparin (Lovenox), 30 MG SQ Q12H Gabapentin (Neurontin), 600 MG PO TID Losartan Potassium (Cozaar), 100 MG PO QAM Mometasone Furoate (Inhalation (Asmanex Twisthaler 120 Me), 1 PUFF INH DAILY Omeprazole (Prilosec), 40 MG PO BID Propranolol (Inderal), 80 MG PO BID Terazosin Hcl (Hytrin), 10 MG PO HS Tiotropium [place] (Spiriva Handihaler), 1 CAP INH DAILY Scheduled PRN Acetaminophen (Tylenol), 650 MG PO BID PRN for PRN Albuterol Hfa (Ventolin Hfa), 2 PUFF PO QID PRN for Shortness of Breath Alprostadil (Vasodilator) (Mel[place]), 1,000 MCG INT UTER DAILY PRN for PRN Cyclobenzaprine Hcl (Flexeril), 0.5 TAB PO TID PRN for Muscle Spasms Diclofenac (Voltaren), 50 MG PO DAILY PRN for Pain Hydroxyzine HCl (Hydroxyzine HCl), 10 MG PO BID PRN for Anxiety Lidocaine (Lidocaine), 1 DOSE TOP 5XD PRN for PRN Allergies Coded Allergies: Sulfa Antibiotics (Verified Allergy, Unknown, RASH / ITCHINESS, 02/22/16) Physical Exam Vital Signs Date Time Temp Pulse Resp B/P Pulse Ox O2 Delivery O2 Flow Rate FiO2 03/12/16 14:59 76 16 103/69 97 Room Air 03/12/16 14:46 76 16 116/70 97 Nasal Cannula 4.0 Mechanical Ventilator 03/12/16 13:42 80 18 104/65 97 Nasal Cannula 2.0 03/12/16 13:36 84 17 97 Nasal Cannula 2.0 03/12/16 13:28 98/67 03/12/16 13:21 80 18 96 Nasal Cannula 2.0 03/12/16 13:06 77 18 97 Nasal Cannula 2.0 03/12/16 12:59 95/58 03/12/16 12:51 78 17 96 Nasal Cannula 2.0 03/12/16 12:43 80 03/12/16 12:36 79 16 97 Nasal Cannula 2.0 03/12/16 12:28 94/71 03/12/16 12:21 76 18 98 Nasal Cannula 2.0 03/12/16 12:16 74 17 98 Nasal Cannula 2.0 03/12/16 12:13 101/74 03/12/16 12:06 78 15 91/73 98 Nasal Cannula 2.0 03/12/16 11:58 98/63 03/12/16 11:56 77 20 97 Nasal Cannula 2.0 03/12/16 11:49 110/67 03/12/16 11:41 79 16 97 Nasal Cannula 2.0 03/12/16 11:38 120/73 03/12/16 11:13 106/67 03/12/16 11:11 64 16 99 Nasal Cannula 2.0 03/12/16 11:10 97/65 03/12/16 11:06 63/42 03/12/16 11:01 72 15 99 Nasal Cannula 2.0 03/12/16 10:58 77/36 03/12/16 10:58 36.4 73 20 65/46 92 Room Air 03/12/16 10:57 68/32 03/12/16 10:55 96 Nasal Cannula 4.0 03/12/16 10:51 72 17 97 Nasal Cannula 2.0 03/12/16 10:50 71/34 03/12/16 10:47 53/34 03/12/16 10:41 77 16 96 Nasal Cannula 2.0 03/12/16 10:38 68/48 03/12/16 10:38 81 03/12/16 10:35 68/40 Physical Exam GENERAL: Sitting up in bed, disheveled, mild distress. EYE EXAM: normal conjunctiva. OROPHARYNX: no exudate, no erythema, lips, buccal mucosa, and tongue normal and mucous membranes are moist NECK: supple, no nuchal rigidity, no adenopathy, non-tender LUNGS: Clear to auscultation. Normal chest wall mechanics HEART: no murmurs, S1 normal and S2 normal ABDOMEN: abdomen soft, non-tender, normo-active bowel sounds, no palpable pulsatile masses, no rebound or guarding. Old bruising with old abdominal incision. BACK: Back is symmetrical on inspection and there is no deformity, no midline tenderness, no CVA tenderness. SKIN: no rashes and no bruising UPPER EXTREMITIES: upper extremities are grossly normal. Radial pulses are equal bilaterally. LOWER EXTREMITIES: No pitting edema. Calves are equal bilaterally. Left knee with old incision, tender to palpation, no erythema or induration. NEURO EXAM: Normal sensorium, cranial nerves II-XII grossly intact, normal speech, no gross weakness of arms, no gross weakness of legs. Gross sensation intact. RECTAL: Heme negative, no hemorrhoids or fissures. Medical Decision & Procedures ER Provider Diagnostic Interpretation: Xray results per the radiologist and my interpretation. Other results have been interpreted by the radiologist and reviewed by me. CHEST ONE VIEW PORTABLE CLINICAL HISTORY: Fever. Dizziness. COMPARISON STUDY: Chest radiograph September 28, [address] performed earlier today. FINDINGS: Lung volumes are normal. There is no pneumothorax or pleural effusion. Mild cardiomegaly is noted. There is no evidence of overt edema. Interstitial thickening is likely within normal limits or chronic. IMPRESSION: No acute cardiopulmonary findings. Electronically signed by: Alberto Suarez M.D. 03/12/2016 11:59 AM Dictated Date/Time: 03/12/2016 11:[address] ANGIOGRAM OF THE CHEST CLINICAL HISTORY: Syncope. COMPARISON STUDY: Chest x-ray dated 09/28/2015. TECHNIQUE: Following the IV administration of 120 cc of Optiray 320, CT angiogram of the chest was performed from the upper abdomen to the thoracic inlet utilizing the pulmonary embolus protocol. Images are reviewed in the axial, sagittal, and coronal planes. 3-D MIPS images are created and assessed. IV contrast was administered without complication. CT DOSE: 1401.54 mGycm FINDINGS: Thyroid: Imaged portions of the thyroid gland are normal in size and attenuation. Thoracic aorta: The thoracic aorta is normal in caliber and demonstrates standard 3-vessel arch anatomy. No dissection is seen. Pulmonary vasculature: The pulmonary trunk is normal in caliber. There are no filling defects identified in main, lobar, or proximal segmental pulmonary branches to suggest pulmonary embolus. Evaluation of the peripheral branches is degraded by suboptimal contrast opacification. Heart: The heart is enlarged and without pericardial effusion. There are coronary artery calcifications. Lungs and pleural spaces: Evaluation of the lung parenchyma is modestly degraded by respiratory motion artifact. There is moderate emphysema and mild apical scarring. No airspace consolidation is seen typical for pneumonia. No pleural effusion is identified. There is minimal dependent atelectasis. The trachea and central airways are clear. Mediastinum: There is no mediastinal lymphadenopathy. Nell: Clear. Axillae: There is no axillary lymphadenopathy. Upper abdomen: There is a small hiatal hernia. The gastric mucosa appears thickened and hyperemic as well as slightly irregular. This is greatest in the proximal body. Partially visualized upper abdominal viscera is otherwise within normal limits. Skeletal structures: No lytic or blastic bony lesions are seen. IMPRESSION: 1. There is no evidence of pulmonary embolus in the main, lobar, or proximal segmental pulmonary arteries. 2. Cardiomegaly and emphysema. 3. There is no airspace consolidation or pleural effusion. 4. The gastric mucosa appears thickened, hyperemic, and somewhat irregular. Correlate clinically for evidence of gastritis. This is not well assessed by CT. Consider follow-up with endoscopy for further assessment and to exclude the possibility of underlying mass. Electronically signed by: Chaitanya Soliman M.D. 03/12/2016 11:52 AM Dictated Date/Time: 03/12/2016 11:[address] SCAN OF THE BRAIN WITHOUT IV CONTRAST CLINICAL HISTORY: Syncope. COMPARISON STUDY: MRI of the brain dated 10/06/2010. TECHNIQUE: Unenhanced axial CT scan of the brain is performed from the vertex to the skull base. Automated dose control exposure was utilized. FINDINGS: Brain parenchyma: The brain parenchyma is normal in appearance. There is no hemorrhage, mass effect, or evidence of acute territorial ischemia by CT criteria. Givens-white matter is preserved. No extra-axial fluid collection is seen. Ventricles, sulci, cisterns: Normal in configuration. Intracranial vasculature: The visualized intracranial vasculature at the skull base is normal in appearance. Calvarium: There is no depressed calvarial fracture. Sinuses and mastoids: The visualized paranasal sinuses are clear. The mastoid air cells are well pneumatized. Orbits: The bony orbits are grossly intact. IMPRESSION: There is no hemorrhage, mass effect, or evidence of acute territorial ischemia by CT criteria. Electronically signed by: Chaitanya Soliman M.D. 03/12/2016 11:45 AM Dictated Date/Time: 03/12/2016 11:43 AM Laboratory Results 03/12/16 11:12 Red Blood Count 4.23, Mean Corpuscular Volume 84.4, Mean Corpuscular Hemoglobin 28.6, Mean Corpuscular Hemoglobin Concent 33.9, Mean Platelet Volume 8.8, Neutrophils (%) (Auto) 64.2, Lymphocytes (%) (Auto) 24.7, Monocytes (%) (Auto) 8.2, Eosinophils (%) (Auto) 1.9, Basophils (%) (Auto) 0.3, Neutrophils # (Auto) 4.37, Lymphocytes # (Auto) 1.68, Monocytes # (Auto) 0.56, Eosinophils # (Auto) 0.13, Basophils # (Auto) 0.02 03/12/16 11:12 Test 03/12/16 10:45 03/12/16 11:09 03/12/16 11:12 03/12/16 11:17 Red Blood Cell Morphology Bedside Hemoglobin 11.9 g/dl (14.0-18.0) Bedside Hematocrit 35 % (42-52) Bedside Sodium 137 mEq/L (135-144) Bedside Potassium 4.8 mEq/L (3.3-5.0) Bedside Chloride 100 mEq/L (101-112) Bedside Total CO2 26 mEq/l (24-31) Bedside Blood Urea Nitrogen 24 mg/dl (7-18) Bedside Creatinine 1.6 mg/dl (0.6-1.3) Bedside Glucose (other) 186 mg/dl (70-99) Bedside Ionized Calcium (Nancy) 1.21 mmol/l (1.12-1.32) White Blood Count 6.81 K/uL (4.8-10.8) Red Blood Count 4.23 M/uL (4.7-6.1) Hemoglobin 12.1 g/dL (14.0-18.0) Hematocrit 35.7 % (42-52) Mean Corpuscular Volume 84.4 fL (80-100) Mean Corpuscular Hemoglobin 28.6 pg (25-34) Mean Corpuscular Hemoglobin Concent 33.9 g/dl (32-36) Platelet Count 204 K/uL (130-400) Mean Platelet Volume 8.8 fL (7.4-10.4) Neutrophils (%) (Auto) 64.2 % Lymphocytes (%) (Auto) 24.7 % Monocytes (%) (Auto) 8.2 % Eosinophils (%) (Auto) 1.9 % Basophils (%) (Auto) 0.3 % Neutrophils # (Auto) 4.37 K/uL (1.4-6.5) Lymphocytes # (Auto) 1.68 K/uL (1.2-3.4) Monocytes # (Auto) 0.56 K/uL (0.11-0.59) Eosinophils # (Auto) 0.13 K/uL (0-0.5) Basophils # (Auto) 0.02 K/uL (0-0.2) RDW Standard Deviation 40.7 fL (36.4-46.3) RDW Coefficient of Variation 13.4 % (11.5-14.5) Immature Granulocyte % (Auto) 0.7 % Immature Granulocyte # (Auto) 0.05 K/uL (0.00-0.02) Prothrombin Time 10.7 SECONDS (9.0-12.0) Prothromb Time International Ratio 1.0 (0.9-1.1) Anion Gap 8.0 mmol/L (3-11) Est Creatinine Clear Calc Drug Dose 56.8 ml/min Estimated GFR () 46.4 Estimated GFR (Non- 40.0 BUN/Creatinine Ratio 13.1 (10-20) Calcium Level 8.7 mg/dl (8.5-10.1) Magnesium Level 2.1 mg/dl (1.8-2.4) Total Bilirubin 0.6 mg/dl (0.2-1) Direct Bilirubin 0.1 mg/dl (0-0.2) Aspartate Amino Transf (AST/SGOT) 13 U/L (15-37) Alanine Aminotransferase (ALT/SGPT) 22 U/L (12-78) Alkaline Phosphatase 130 U/L (45-117) Total Creatine Kinase 25 U/L (39-308) Creatine Kinase MB 0.8 ng/ml (0.5-3.6) Creatine Kinase MB Ratio 3.2 (0-3.0) Troponin I < 0.015 ng/ml (0-0.045) Total Protein 7.1 gm/dl (6.4-8.2) Albumin 3.1 gm/dl (3.4-5.0) Bedside Lactic Acid Venous 1.59 mmol/L (0.90-1.70) Test 03/12/16 14:58 Laboratory results per my review. Medications Administered Medications (Trade) Dose Ordered Sig/Tash Route Start Time Stop Time Status Last Admin Dose Admin Norepinephrine Bitartrate 8 mg/ Dextrose 508 ml @ 0 mls/hr Q0M PRN IV 03/12/16 11:00 04/11/16 10:59 03/12/16 11:04 17.9 MLS/HR Sodium Chloride (Nss 1000ml) 2,000 ml @ 999 mls/hr Q2H1M STAT IV 03/12/16 10:52 03/12/16 12:52 DC 03/12/16 10:52 999 MLS/HR ECG Indication: syncope Rate (beats per minute): 77 Rhythm: sinus rhythm Findings: Q waves (Inferior), no ectopy, other (normal axis, normal intervals) ED Course ED COURSE: Vital signs were reviewed and showed hypotension. The patients medical record was reviewed The above diagnostic studies were performed and reviewed. ED treatments and interventions as stated above. 1038: The patient was evaluated in room A2. A complete history and physical examination was performed. 1050: Bedside ultrasound shows no pericardial effusion. Unable to visualize aorta due to body habitus. 1052: NSS 2000 ml @ 999 mls/hr. 1100: Attempted to call the patient's but nobody answered. His pressure is now in the 70s systolically. 1100: Norepinephrine Bitartrate 8 mg / dextrose 5087 ml @ 0 mls/hr. 1104: Spoke with the patient's on the phone, who notes that he passed out while laying in bed. He did not have any new complaints. His medications for today are still in the container. 1112: The patient's systolic pressure was in the 90s, MAP 80. I told the staff to maintain the MAP. He will go for a CT scan. 1119: Initial labs drawn with IV running through the vein. Repeat ISTAT shows hemoglobin of 12, potassium 3.5, sodium 138, creatinine 1.6. 1155: Blood pressure is in the 110s. He is receiving 0.04mcs per kg per minute. 1240: Discussed the case with Dr. León, [facility] Hospitalist. The patient will be evaluated. 1245: Upon reevaluation, the patient is stable.I discussed my findings with the patient and he understands and agrees with the treatment plan. Based on the patients age, coexisting illnesses, exam and lab findings the decision to treat as an inpatient was made. The patient remained stable while under my care. The patient will be evaluated for further management. Medical Decision Differential Diagnosis includes but is not limited to dehydration, stroke, anemia, hypoglycemia, hyponatremia, hypernatremia, urinary tract infection, pneumonia, bronchitis, sepsis, gastroenteritis, additional abdominal pathology, metabolic abnormalities and infections. Patient is a 61-year-old male who presents the ER for syncope. Upon presentation he has no complaints with the exception of mild left knee pain. Blood pressures are systolically in the 50s to 60s on multiple repeats. 2 IVs were established. He is given 2 L normal saline under pressure bags. Following this he remained hypotensive. Heart rate was in the 70s. He was clearly lethargic. CT of the head and chest showed no PEs dissection or intracranial bleed. Shortly after 2 L normal saline patient was placed on Levophed through peripheral 18-gauge. He is titrated up and eventually titrated back down to 0.02 mics per per minute. His blood pressure improved during this time to the low 100s systolically. CBC was fairly unremarkable. BMP shows a creatinine of 1.8. LFTs and troponin was unremarkable. INR was normal. Patient was updated in regards to his findings. Patient has no other complaints at this time. Hemodynamic monitoring was performed closely along with titration of the Levophed which eventually was terminated following admission. Consults Time Called: 1230 Consulting Physician: Dr. León [facility] Hospitalist Returned Call: [phone]: Discussed the case with Dr. León [facility]. The patient will be evaluated. Impression Primary Impression: Hypotension Additional Impressions: Left knee pain Syncope Critical Care I have personally spent 80 minutes of critical care time in the direct management of this patient. This includes bedside care, interpretation of diagnostic studies, and testing, discussion with consultants, patient, and family members, and other required patient management activities. This 80 minutes is in excess of all separately billable procedures. Scribe Attestation The scribe's documentation has been prepared under my direction and personally reviewed by me in its entirety. I confirm that the note above accurately reflects all work, treatment, procedures, and medical decision making performed by me. Departure Information Dispostion Being Evaluated By Hospitalist Doc Nichole M.D. (PCP) Patient Instructions My [facility] Problem Qualifiers Primary Impression: Hypotension Hypotension type: other hypotension type Qualified Codes: I95.89 - Other hypotension Additional Impressions: Left knee pain Chronicity: acute Qualified Codes: M25.562 - Pain in left knee Syncope Syncope type: unspecified Qualified Codes: R55 - Syncope and collapse
--- NOTE | 2016-03-12 15:25 | DIAGNOSTIC IMAGING REPORT ---
LEFT KNEE 1 OR 2 VIEWS ROUTINE CLINICAL HISTORY: Pain and redness status post total knee arthroplasty COMPARISON: 02/11/2016 DISCUSSION: There are postsurgical changes of a total left knee arthroplasty. No fractures are visualized. There are no cortical destructive lesions. There is diffuse soft tissue edema anteriorly. There is a probable small joint effusion. IMPRESSION: Diffuse anterior soft tissue edema. Postsurgical changes of total left knee arthroplasty. No evidence of fracture. No bony destructive lesions are visualized. Electronically signed by: Oscar Blunt M.D. 03/12/2016 3:24 PM Dictated Date/Time: 03/12/2016 3:23 PM
[2016-03-12 16:30] VITALS: BP 113/73; PULSE 72; TEMP 36.4; Ht 180.3 cm; Wt 118.0 kg
[2016-03-12] MEDS: TRAMADOL HCL 50 MG TAB PO PRN (16:32)
[2016-03-12] MEDS: SODIUM CHLORIDE 0.9% 1000ML 1,000 ML IV SCH ×2 (16:32→17:00)
[2016-03-12] MEDS ORDERED: SODIUM CHLORIDE 0.9% 1000ML 1,000 ML IV SCH (17:00)
[2016-03-12 17:47] VITALS: O2SAT 95
[2016-03-12] MEDS ORDERED: HYDROmorphone INJ 1 MG/ML SYR IV STA (17:53)
--- NOTE | 2016-03-12 17:57 | CONSULTATION REPORT ---
DATE OF CONSULTATION: 03/12/2016 CHIEF COMPLAINT: Dizziness. HISTORY OF PRESENT ILLNESS: Zan is a 61-year-old male patient of Dr. Godoy's from [facility] that was evaluated today in the Emergency Department. He presented due to what he reports his a bout of dizziness and syncope around 9:30 this morning once waking out of bed. The patient does not recall this episode and was informed by his that he had passed out. He is approximately 4 weeks status post a left total knee arthroplasty by Dr. Godoy that was completed at [facility]. He denies any new injury to his left knee. He states he does have some increased soreness from when he fell, but overall does not feel that it is much worse than it is already somewhat painful baseline from having surgery. He denies any new redness, swelling. Denies any issues with his healed incision. Does not report any calf pain, numbness or tingling distally. The patient overall states he feels currently at this point as he did presyncope. PAST MEDICAL HISTORY: Hypertension, COPD, history of hiatal hernia, GERD, osteoarthritis. He does have a history of MRSA. PAST SURGICAL HISTORY: 1. Left wrist surgery. 2. Left total knee arthroplasty 02/11/2016 at the [facility] by Dr. George Godoy. FAMILY HISTORY: Noncontributory. SOCIAL HISTORY: The patient lives at home with his in a safe environment. He denies any alcohol, tobacco or illegal drug use. MEDICATIONS: 1. Albuterol 90 mcg INH as needed for wheezing. 2. Alprostadil 1000 mcg transurethral suppository. 3. Bupropion 100 mg tab b.i.d. 4. Capsaicin 0.25% topical cream. 5. Cholecalciferol 1000 international units tab daily. 6. Cyclobenzaprine 10 mg tab 3 times daily as needed for spasm. 7. Duloxetine 60 mg tab daily. 8. Gabapentin 300 mg capsule 2 caps by mouth 3 times daily. 9. Hydroxyzine 10 mg tab twice daily as needed for anxiety. 10. Losartan 100 mg tab daily. 11. Mometasone 220 mcg INH b.i.d. 12. Omeprazole 20 mg tab twice daily. 13. Propranolol 80 mg twice daily. 14. Terazosin 10 mg tab at bedtime. 15. Tiotropium 18 mcg INH daily. 16. Trazodone 100 mg tab at bedtime. 17. Lovenox 30 mg q. 12 hours for DVT prophylaxis. 18. Oxycodone 10 mg tabs for postoperative pain control. ALLERGIES: SULFA. REVIEW OF SYSTEMS: The patient currently denies any headache, chest pain, shortness of breath, fevers, chills or night sweats. PHYSICAL EXAMINATION: VITAL SIGNS: The patient does not have a current temperature listed, his pulse is 79, his respiratory rate is 18, his blood pressure is 108/75, his pulse ox is 97% on room air. GENERAL: The patient lying supine in the Emergency Department bed. He is resting comfortably with lights off upon entering the room. He is pleasant. He is in no acute distress. SKIN: Exam of the patient's left knee reveals postsurgical changes with a midline vertical scar that is clean, dry and intact. There is no notable or significant effusion in the left knee. There is no erythema. The skin does not appear to be overly increased with temperature when compared to the contralateral knee. No other abrasions or lesions otherwise that appear where he could have potentially struck the knee during his fall. NEUROVASCULAR: The left lower extremity, distally he has good sensation and strength throughout left lower extremity. Distal pulses +2. Capillary refill under 2 seconds. Good sensation with light touch. Toes freely mobile. +5 strength in dorsi and plantarflexion. Calves are supple, nontender. MUSCULOSKELETAL: Exam of the patient's left knee. Range of motion is near full extension with some pain at end points and he is able to easily flex to 90 degrees with tightness and some pain at end points, which again the patient states that has been baseline for him after having his left knee replaced 4 weeks ago. His back collateral ligaments were stressed with valgus and varus stressing and there is no increased laxity, no obvious cystic changes or masses in the popliteal fossa. The patient can perform a straight leg raise, I had him perform this multiple times to make sure that he had no defect in his extensor mechanism. I had the patient flex to 90 degrees and extend his left leg at the knee and he is able to do this with +5 strength, does recreate some pain for him, but again he is only 4 weeks after having his left knee replaced and pain obviously has been somewhat of an issue for him. I examined the patient's left hip, the left ankle and they are atraumatic. Active and passive range of motion are nontender overall. IMAGING: Radiographs of the patient's left knee were obtained, postsurgical changes in AP and lateral view were obtained of the patient's left knee and again implants from a left total knee arthroplasty were obtained. There is no evidence of a periprosthetic fracture. There are no lucencies within the hardware or the cement. The patient has acceptable alignment. No other cystic changes or masses within the bone in left knee. A chest CT was obtained. There is no evidence of pulmonary embolism. An EKG was obtained and did not find any significant change from his electrocardiogram that was obtained in November 2015 revealing normal sinus rhythm and no evidence of ischemia. LABORATORY DATA: Reveal a white count of 6, hemoglobin of 12, hematocrit of 35, platelet count of 204. PT/INR reveals 10.7 and 1.0. Chemistry reveals a sodium of 137, potassium of 4.7, chloride of 103, carbon dioxide of 26, BUN of 24, creatinine is 1.8, random glucose is 182. ASSESSMENT AND PLAN: Syncopal episode x1 on 03/12/2015. PLAN: The patient's findings were discussed with him today and he was educated regarding this findings. I am unable to find any type of new or notable pathology of the patient's left knee. He certainly may have sustained a mild contusion to the left knee when he fell out of bed this morning after his syncopal episode, but clinically I am unable to identify any type of new pathology. Again, he is ligamentously stable. There is no evidence for me today that would reveal an infection. The patient is not overly anemic. His H\T\H are stable. His INR does appear to be subtherapeutic, but today denies any calf pain or tenderness. No other notable, erythema or swelling of the calf. He denies any chest pain or shortness of breath. He did not rupture his extensor mechanism and again, there is no other evidence of fracture and he has maintained his range of motion as well. Overall patient is orthopedically stable. It appears the patient will be admitted under medicine to telemetry. Overall, the patient can be at this point can weightbear as tolerated, can ice and elevate the left knee, pain control with prescribed medications. It appears that the patient's Lovenox has been continued per medicine for DVT prophylaxis. No other questions or concerns. Pleased with today's examination. Please call [facility] at [phone] with any other questions.
[2016-03-12] MEDS: GABAPENTIN 600 MG TAB PO SCH ×2 (18:00→20:16)
[2016-03-12] MEDS: ENOXAPARIN 30 MG/0.3 ML SYR SQ SCH (18:01)
[2016-03-12 19:38] VITALS: BP 128/57; PULSE 52; TEMP 36.5; O2SAT 96
[2016-03-12] MEDS: HYDROmorphone INJ 1 MG/ML SYR IV PRN (23:23)
[2016-03-12 23:32] VITALS: BP 145/81; PULSE 72; TEMP 37.2; O2SAT 96
[2016-03-13] VITALS (8 sets, daily range): BP systolic 113–152; BP diastolic 59–94; PULSE 81–114; TEMP 36.5–37.2; O2SAT 92–95
[2016-03-13] MEDS: TRAMADOL HCL 50 MG TAB PO PRN ×4 (01:25→21:03)
[2016-03-13] MEDS: ACETAMINOPHEN 325 MG TAB PO PRN ×2 (02:22→23:33)
[2016-03-13] MEDS: HYDROmorphone INJ 1 MG/ML SYR IV PRN ×5 (03:25→20:05)
[2016-03-13 03:52] LABS: BLOOD UREA NITROGEN 19 mg/dl (7-18); CALCIUM 8.9 mg/dl (8.5-10.1); CARBON DIOXIDE 25 mmol/L (21-32); CHLORIDE 107 mmol/L (98-107); GLUCOSE 119 mg/dl (70-99); MAGNESIUM 2.2 mg/dl (1.8-2.4); POTASSIUM 4.3 mmol/L (3.5-5.1); SODIUM 141 mmol/L (136-145)
[2016-03-13 04:40] LABS: BASO % 0.5 %; BASO ABS # 0.03 K/uL (0-0.2); EOS % 5.2 %; HEMATOCRIT 34.6 % (42-52); IG% 0.5 %; LYMPH % 32.5 %; MEAN CELL VOLUME 86.3 fL (80-100); MEAN CORPUSCULAR HEMOGLOBIN 28.9 pg (25-34); MEAN PLATELET VOLUME 8.6 fL (7.4-10.4); MONO % 11.2 %; NEUT % 50.1 %; PLATELET COUNT 188 K/uL (130-400); RED BLOOD COUNT 4.01 M/uL (4.7-6.1); WHITE BLOOD COUNT 5.53 K/uL (4.8-10.8)
[2016-03-13 04:50] LABS: COMPLETE YES; MEAN CORPUSCULAR HGB CONC 33.5 g/dl (32-36)
[2016-03-13] MEDS: ENOXAPARIN 30 MG/0.3 ML SYR SQ SCH ×2 (05:37→17:59)
[2016-03-13] MEDS: BuPROPion SR 150 MG TABCR PO SCH (07:53)
[2016-03-13] MEDS: GABAPENTIN 600 MG TAB PO SCH ×3 (07:53→21:04)
[2016-03-13] MEDS: DULOXETINE HCL 60 MG CAP PO SCH (07:53)
[2016-03-13] MEDS: TIOTROPIUM BROMIDE 5 PUFF/90 MCG INH INH SCH (07:54)
[2016-03-13] MEDS: CHOLECALCIFEROL 1000 INTER.UNIT TAB PO SCH (07:54)
[2016-03-13] MEDS: MOMETASONE FUROATE 14 PUFF/1 INHALER INH SCH (07:54)
--- NOTE | 2016-03-13 07:58 | Hospitalist Progress Note ---
Hospitalist Progress Note Date of Service Mar 13, 2016. (Shelley Christianson PA-C) Subjective Pt evaluation today including: conversation w/ patient, physical exam, chart review, lab review, review of studies, review of inpatient medication list Pain: None PO Intake: Good Voiding: no voiding problems The patient was seen and examined this morning. Pt reports not sleeping well overnight. He denies any lightheadedness or dizziness today, does not feel weak or lethargic. This morning the patient reports that he has experienced this same thing before with lightheadedness and dizziness about 6-8 weeks ago. He is unable to tell me whether or not he took extra doses of either atenolol. He feels back to normal today. Constitutional: No chills, No fever Eyes: No diplopia ENT: No nasal symptoms, No sore throat, No tinnitus Respiratory: No cough, No dyspnea at rest, No dyspnea on exertion, No shortness of breath, No wheezing Cardiovascular: No chest pain, No palpitations Abdomen: No nausea, No pain Musculoskeletal: No joint pain, No muscle pain, No swelling Male : No dysuria (Shelley Christianson PA-C) Objective Vital Signs Date Time Temp Pulse Resp B/P Pulse Ox O2 Delivery O2 Flow Rate FiO2 03/13/16 04:00 Room Air 03/13/16 02:54 37.2 114 20 113/80 92 Room Air 03/12/16 23:59 Room Air 03/12/16 23:32 37.2 72 18 145/81 96 Nasal Cannula 03/12/16 20:00 Room Air 03/12/16 19:38 36.5 52 16 128/57 96 Room Air 03/12/16 17:47 95 Room Air 03/12/16 16:30 36.4 72 17 113/73 03/12/16 16:00 75 18 112/78 95 03/12/16 15:29 79 18 108/75 97 03/12/16 14:59 76 16 103/69 97 Room Air 03/12/16 14:46 76 16 116/70 97 Nasal Cannula 4.0 Mechanical Ventilator 03/12/16 13:42 80 18 104/65 97 Nasal Cannula 2.0 03/12/16 13:36 84 17 97 Nasal Cannula 2.0 03/12/16 13:28 98/67 1/27/17 13:21 80 18 96 Nasal Cannula 2.0 03/12/16 13:06 77 18 97 Nasal Cannula 2.0 03/12/16 12:59 95/58 03/12/16 12:51 78 17 96 Nasal Cannula 2.0 03/12/16 12:43 80 03/12/16 12:36 79 16 97 Nasal Cannula 2.0 03/12/16 12:28 94/71 03/12/16 12:21 76 18 98 Nasal Cannula 2.0 03/12/16 12:16 74 17 98 Nasal Cannula 2.0 03/12/16 12:13 101/74 03/12/16 12:06 78 15 91/73 98 Nasal Cannula 2.0 03/12/16 11:58 98/63 03/12/16 11:56 77 20 97 Nasal Cannula 2.0 03/12/16 11:49 110/67 03/12/16 11:41 79 16 97 Nasal Cannula 2.0 03/12/16 11:38 120/73 03/12/16 11:13 106/67 03/12/16 11:11 64 16 99 Nasal Cannula 2.0 03/12/16 11:10 97/65 03/12/16 11:06 63/42 03/12/16 11:01 72 15 99 Nasal Cannula 2.0 03/12/16 10:58 77/36 03/12/16 10:58 36.4 73 20 65/46 92 Room Air 03/12/16 10:57 68/32 03/12/16 10:55 96 Nasal Cannula 4.0 03/12/16 10:51 72 17 97 Nasal Cannula 2.0 03/12/16 10:50 71/34 03/12/16 10:47 53/34 03/12/16 10:41 77 16 96 Nasal Cannula 2.0 03/12/16 10:38 68/48 03/12/16 10:38 81 03/12/16 10:35 68/40 (Shelley Christianson, JOCELYN) Physical Exam General Appearance: WD/WN, no apparent distress, + obese Eyes: PERRL, EOMI ENT: hearing grossly normal, pharynx normal Neck: supple, no JVD, no carotid bruits Respiratory/Chest: lungs clear, normal breath sounds, no respiratory distress, no accessory muscle use Cardiovascular: regular rate, rhythm, no murmur Abdomen: normal bowel sounds, non tender, soft, + pertinent finding (moderate abdominal hernia) Extremities: non-tender, normal inspection, no pedal edema, no calf tenderness Neurologic/Psychiatric: alert, normal mood/affect, oriented x 3 Skin: normal color, warm/dry (Shelley Christianson, JOCELYN) Laboratory Results Last 24 Hours Test 03/12/16 10:45 03/12/16 10:49 03/12/16 10:50 03/12/16 10:55 White Blood Count K/uL Red Blood Count M/uL Hemoglobin g/dL Hematocrit % Mean Corpuscular Volume fL Mean Corpuscular Hemoglobin pg Mean Corpuscular Hemoglobin Concent g/dl Platelet Count K/uL Mean Platelet Volume fL Neutrophils (%) (Auto) % Lymphocytes (%) (Auto) % Monocytes (%) (Auto) % Eosinophils (%) (Auto) % Basophils (%) (Auto) % Neutrophils # (Auto) K/uL Lymphocytes # (Auto) K/uL Monocytes # (Auto) K/uL Eosinophils # (Auto) K/uL Basophils # (Auto) K/uL RDW Standard Deviation fL RDW Coefficient of Variation % Immature Granulocyte % (Auto) % Immature Granulocyte # (Auto) K/uL Red Blood Cell Morphology Prothrombin Time SECONDS Prothromb Time International Ratio Creatine Kinase MB Ratio Bedside Hemoglobin 6.8 g/dl Bedside Hematocrit 20 % Bedside Sodium 150 mEq/L Bedside Potassium 2.3 mEq/L Bedside Chloride 116 mEq/L Bedside Total CO2 12 mEq/l Anion Gap 24.0 mmol/L Bedside Blood Urea Nitrogen 11 mg/dl Bedside Creatinine 0.7 mg/dl Bedside Glucose (other) 110 mg/dl Bedside Ionized Calcium (Nancy) 0.78 mmol/l Bedside Lactic Acid Venous 0.90 mmol/L Test 03/12/16 11:09 03/12/16 11:12 03/12/16 11:17 03/12/16 18:48 Bedside Hemoglobin 11.9 g/dl Bedside Hematocrit 35 % Bedside Sodium 137 mEq/L Bedside Potassium 4.8 mEq/L Bedside Chloride 100 mEq/L Bedside Total CO2 26 mEq/l Anion Gap 16.0 mmol/L 8.0 mmol/L Bedside Blood Urea Nitrogen 24 mg/dl Bedside Creatinine 1.6 mg/dl Bedside Glucose (other) 186 mg/dl Bedside Ionized Calcium (Nancy) 1.21 mmol/l White Blood Count 6.81 K/uL Red Blood Count 4.23 M/uL Hemoglobin 12.1 g/dL Hematocrit 35.7 % Mean Corpuscular Volume 84.4 fL Mean Corpuscular Hemoglobin 28.6 pg Mean Corpuscular Hemoglobin Concent 33.9 g/dl Platelet Count 204 K/uL Mean Platelet Volume 8.8 fL Neutrophils (%) (Auto) 64.2 % Lymphocytes (%) (Auto) 24.7 % Monocytes (%) (Auto) 8.2 % Eosinophils (%) (Auto) 1.9 % Basophils (%) (Auto) 0.3 % Neutrophils # (Auto) 4.37 K/uL Lymphocytes # (Auto) 1.68 K/uL Monocytes # (Auto) 0.56 K/uL Eosinophils # (Auto) 0.13 K/uL Basophils # (Auto) 0.02 K/uL RDW Standard Deviation 40.7 fL RDW Coefficient of Variation 13.4 % Immature Granulocyte % (Auto) 0.7 % Immature Granulocyte # (Auto) 0.05 K/uL Prothrombin Time 10.7 SECONDS Prothromb Time International Ratio 1.0 Sodium Level 137 mmol/L Potassium Level 4.7 mmol/L Chloride Level 103 mmol/L Carbon Dioxide Level 26 mmol/L Blood Urea Nitrogen 24 mg/dl Creatinine 1.80 mg/dl Est Creatinine Clear Calc Drug Dose 56.8 ml/min Estimated GFR () 46.4 Estimated GFR (Non- 40.0 BUN/Creatinine Ratio 13.1 Random Glucose 182 mg/dl Calcium Level 8.7 mg/dl Magnesium Level 2.1 mg/dl Total Bilirubin 0.6 mg/dl Direct Bilirubin 0.1 mg/dl Aspartate Amino Transf (AST/SGOT) 13 U/L Alanine Aminotransferase (ALT/SGPT) 22 U/L Alkaline Phosphatase 130 U/L Total Creatine Kinase 25 U/L Creatine Kinase MB 0.8 ng/ml Creatine Kinase MB Ratio 3.2 Troponin I < 0.015 ng/ml < 0.015 ng/ml Total Protein 7.1 gm/dl Albumin 3.1 gm/dl Bedside Lactic Acid Venous 1.59 mmol/L Test 03/13/16 03:21 1/28/17 04:35 Sodium Level 141 mmol/L Potassium Level 4.3 mmol/L Chloride Level 107 mmol/L Carbon Dioxide Level 25 mmol/L Anion Gap 9.0 mmol/L Blood Urea Nitrogen 19 mg/dl Creatinine 1.00 mg/dl Est Creatinine Clear Calc Drug Dose 102.4 ml/min Estimated GFR () 94.4 Estimated GFR (Non- 81.4 BUN/Creatinine Ratio 19.0 Random Glucose 119 mg/dl Calcium Level 8.9 mg/dl Magnesium Level 2.2 mg/dl Troponin I < 0.015 ng/ml Chemistry Specimen Hemolysis White Blood Count 5.53 K/uL Red Blood Count 4.01 M/uL Hemoglobin 11.6 g/dL Hematocrit 34.6 % Mean Corpuscular Volume 86.3 fL Mean Corpuscular Hemoglobin 28.9 pg Mean Corpuscular Hemoglobin Concent 33.5 g/dl Platelet Count 188 K/uL Mean Platelet Volume 8.6 fL Neutrophils (%) (Auto) 50.1 % Lymphocytes (%) (Auto) 32.5 % Monocytes (%) (Auto) 11.2 % Eosinophils (%) (Auto) 5.2 % Basophils (%) (Auto) 0.5 % Neutrophils # (Auto) 2.76 K/uL Lymphocytes # (Auto) 1.80 K/uL Monocytes # (Auto) 0.62 K/uL Eosinophils # (Auto) 0.29 K/uL Basophils # (Auto) 0.03 K/uL RDW Standard Deviation 43.1 fL RDW Coefficient of Variation 13.6 % Immature Granulocyte % (Auto) 0.5 % Immature Granulocyte # (Auto) 0.03 K/uL (Shelley Christianson, PAiJaC) Assessment and Plan This is a 61 yo M with PMHx rheumatoid arthritis, osteoarthritis, s/p L TKA done on Feb 11, [address] Godoy, depression and anxiety who presents after an episode of syncope this morning around 9:30 am. Arterial hypotensive episode, unknown cause - Pt has received 3 L NSS bolus infusions in the ED and was placed on a Levophed gtt at 0.03 mcg. Pt tolerated fluid rescusitation well yesterday and didn't require levophed gtt so was placed in tele. - Will restart REGISTRY NP meds losartan 100 mg QAM and propranolol 80 mg BID, hytrin 10 mg QHS - pt unsure at time of admission if he took too many losartan in the morning. Possible that the pt took hytrin last night and that this in addition to med error caused him to become hypotensive. Will see if the patient tolerates these medications today and determine if his home dosing is therapeutic for him. - Await ECHO report - cardiac enzymes are negative x 3 - Possible septic joint with severe pain, warmth, and edema upon admission- knee is not hot like it was yesterday, swelling has improved. Color was never erythematous although pt reports pain in his knee is slightly better today in comparison to yesterday. - Checking procalcitonin and CRP - Follow BCx - UA cancelled - nothing to follow - CT chest and head reviewed and is essentially negative. No evidence of PE. Bowel thickening of the mucosa noted. GAUTAM - not likely due to dehydration as pt reports eating and drinking well - Continue on NSS at 100 mL/hr for now - Cr. 1.0, down from 1.8 today. 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 - Continue flexeril for muscle spasm - Will order tramadol for pain at this time - no narcotics with potential dropping BP - Ortho consulted- appreciate recs; unknown source as xrays of the knee do not reveal any acute fracture or misalignment of the implant. - Continue lovenox sq BID, INR was subtherapeutic upon admission at 1.0 - PT/OT consults - Continue to WBAT, ice and elevate the knee. Depression/Anxiety - Cont REGISTRY NP Wellbutrin SR 150 mg daily, celexa 60 mg daily - Hydroxyzine 10 mg BID for anxiety DVT ppx: cont lovenox injections Code Status: Full Code Disposition: From home, dc likely within 1 day. (Shelley Christianson, JOCELYN) i personally examined pt and verified all noel points gabo Christianson PA-C feeling better now - notes that this happened once before - similar time of day , only major difference was no LOC. also notes he gets sweaty/pale feeling often late at night - uses fan and then feels better. takes terazosin around 9. has some urinary hesitancy but not a lot of other BPH sx and never tried or failed flomax that he recalls. no f/c/s. knee hurts. ortho input noted vitals noted, nad. reg rate, breathing unlabored no accessory muscles. L knee s/p TKA w midline incision, mildly tender no erythema no joint effusion no significant joint line tenderness syncope and subsequent hypotension -w shock state - no sepsis to account for septic shock (no SIRS, and even if knee was infected, no sepsis to show for it) no cardiogenic shock, no neurogenic shock; almost by process of elimination has to be hypovolemic - and with no blood loss/volume loss/poor PO intake - very likely med related (vs odd rare neurovascular kinds of syndromes) -- given time of day most likely single culprit med would be terazosin, but he freely admits that he has some struggles with getting his meds right and agrees it's highly likely that he easily could have taken extra of meds at times without really meaning to. -follow BP on current meds to help distinguish simply needing to reduce treatment overall from having to stop terazosin (and sub flomax) and just help him have a more careful system for meds BPH - after checking orthostatics in AM - will change from terazosin to flomax knee pain - nothing appearing infected clinically, labs reassuring, ortho input reassuring - stop abx (Jono Park D.O.)
[2016-03-13] MEDS ORDERED: PERFLUTREN LIPID MICROSPHERE (DEFINITY) IV ONE (08:23)
[2016-03-13] MEDS: CYCLOBENZAPRINE HCL 5 MG TAB PO PRN ×2 (11:24→23:32)
[2016-03-13] MEDS: PROPRANOLOL HCL 80 MG TAB PO SCH ×2 (11:24→21:04)
[2016-03-13] MEDS: LOSARTAN POTASSIUM 50 MG TAB PO SCH (11:24)
--- NOTE | 2016-03-13 15:20 | ECHOCARDIOGRAM REPORT ---
*NOTICE TO RECEIVING LIBERTARIAN AGENCY This information is strictly Confidential and protected under [place] law. [place] law prohibits you from making any further disclosure of this information unless further disclosure is expressly permitted by the written consent of the person to whom it pertains or is authorized by law. A general authorization for the release of medical or other information is not sufficient for this purpose. Hospital accepts no responsibility if the information is made available to any other person, INCLUDING THE PATIENT. Interpretation Summary * Name: MICHAEL MCGUIRE Study Date: 03/13/2016 07:25 AM BP: 112/78 mmHg * Patient Location: C.2T\S\S233\S\1 HR: 84 * : 1955 (M/d/yyyy) Gender: Male Height: 71 in * Age: 61 yrs Ethnicity: CA Weight: 257 lb * Ordering Physician: Carlos Corado * Referring Physician: No Doctor, Assigned * Performed By: Avinash Reyes RDCS * * Reason For Study: Syncope * BSA: 2.3 m2 * -- Conclusions -- * 1. Normal LV size. Mild concentric LVH. * 2. Normal LV systolic function. LVEF 55-60 %. No regional wall motion abnormalities. * 3. Mildly dilated RV, normal RV function. * 4. Mild aortic valve sclerosis without stenosis. * 5. Normal estimated PA and RA pressures. * 6. Compared with prior study on 04/14/2011: No pulmonary hypertension noted today. Procedure Details * A complete two-dimensional transthoracic echocardiogram was performed (2D, M-mode, Doppler and color flow Doppler). * The study was technically difficult. * The study was technically difficult, but visualization was adequate with the administration of Definity ultrasound contrast. * There were technical limitations due to patient'sbody habitus * A contrast injection of Definity was performed to improve assessment of LV function. * Contrast was injected into an intravenous site in the right arm. * One vial of Definity ultrasound contrast was diluted in normal saline to a total volume of 10 ml. A total of '2' ml of solution was administered during imaging. * Lot # [id number] of Definity utilized for procedure. * Expiration date 1DEC17. * The attending nurse who injected the contrast agent was Jaylen Xavier RN. Left Ventricle * The left ventricle is grossly normal size. * There is mild concentric left ventricular hypertrophy. * Ejection Fraction = 55-60%. * No regional wall motion abnormalities noted. Right Ventricle * The right ventricle is mildly dilated. Atria * The left atrial size is normal. * Borderline right atrial enlargement. * No ASD detected; PFO is not assessed. Mitral Valve * The mitral valve is grossly normal. * The mitral valve leaflets appear thickened, but open well. * There is no mitral valve stenosis. * There is trace mitral regurgitation. Tricuspid Valve * The tricuspid valve is not well visualized. * There is no tricuspid stenosis. * There is trace tricuspid regurgitation. * Right ventricular systolic pressure is normal. Aortic Valve * The aortic valve opens well. * Aortic valve sclerosis mild, without significant aortic valvular stenosis. * The aortic valve is trileaflet. * There is no significant aortic regurgitation. Pulmonic Valve * The pulmonary valve is inadequately visualized, but the Doppler data is adequate for interpretation. * There is no pulmonic valvular stenosis. * There is no significant pulmonary regurgitation. Great Vessels * The aortic root and proximal ascending aorta are normal sized. * No Doppler or imaging evidence of an aortic coarctation. Pericardium/Pleural * There is no pericardial effusion. Great Vessels * Normal inferior vena cava size and collapsability with sniff indicates a normal right atrial pressure of 3 mmHg MMode 2D Measurements and Calculations IVSd 1.3 cm IVSs 1.7 cm LVIDd 5.1 cm LVIDs 3.7 cm LVPWd 1.3 cm LVPWs 2.0 cm IVS/LVPW 0.97 FS 27.0 % EDV(Teich) 123.6 ml ESV(Teich) 58.9 ml EF(Teich) 52.3 % EDV(cubed) 132.3 ml ESV(cubed) 51.5 ml EF(cubed) 61.1 % % IVS thick 30.4 % % LVPW thick 51.0 % LV mass(C)d 276.0 grams LV mass(C)dI 117.7 grams/m\S\2 LV mass(C)s 300.7 grams LV mass(C)sI 128.2 grams/m\S\2 SV(Teich) 64.7 ml SI(Teich) 27.6 ml/m\S\2 SV(cubed) 80.8 ml SI(cubed) 34.5 ml/m\S\2 EPSS 0.68 cm Ao root diam 3.4 cm Ao root area 9.0 cm\S\2 ACS 2.3 cm LA dimension 4.1 cm asc Aorta Diam 3.9 cm LA/Ao 1.2 LVOT diam 2.3 cm LVOT area 4.0 cm\S\2 LVAd ap4 34.6 cm\S\2 LVLd ap4 8.4 cm EDV(MOD-sp4) 118.0 ml LVAs ap4 18.9 cm\S\2 LVLs ap4 6.9 cm ESV(MOD-sp4) 43.0 ml EF(MOD-sp4) 63.6 % LVAd ap2 32.6 cm\S\2 LVLd ap2 7.9 cm EDV(MOD-sp2) 112.0 ml LVAs ap2 18.4 cm\S\2 LVLs ap2 6.9 cm ESV(MOD-sp2) 41.0 ml EF(MOD-sp2) 63.4 % SV(MOD-sp4) 75.0 ml SI(MOD-sp4) 32.0 ml/m\S\2 SV(MOD-sp2) 71.0 ml SI(MOD-sp2) 30.3 ml/m\S\2 Doppler Measurements and Calculations MV E max katya 91.3 cm/sec MV A max katya 84.9 cm/sec MV E/A 1.1 MV dec time 0.21 sec Ao V2 max 160.7 cm/sec Ao max PG 10.3 mmHg Ao max PG (full) 6.9 mmHg PORSCHE(V,A) 2.3 cm\S\2 PORSCHE(V,D) 2.3 cm\S\2 LV V1 max PG 3.4 mmHg LV V1 max 92.5 cm/sec PA V2 max 111.2 cm/sec PA max PG 5.0 mmHg TR max katya 271.5 cm/sec
[2016-03-14] MEDS: HYDROmorphone INJ 1 MG/ML SYR IV PRN ×2 (00:30→04:32)
[2016-03-14] MEDS: ACETAMINOPHEN 325 MG TAB PO PRN (03:27)
[2016-03-14] MEDS: TRAMADOL HCL 50 MG TAB PO PRN (04:03)
[2016-03-14 04:16] VITALS: BP 126/75; PULSE 80; TEMP 36.8; O2SAT 92
[2016-03-14] MEDS: ENOXAPARIN 30 MG/0.3 ML SYR SQ SCH (06:00)
[2016-03-14 07:35] VITALS: BP 119/73; PULSE 79; TEMP 36.9; O2SAT 92
[2016-03-14] MEDS: MOMETASONE FUROATE 14 PUFF/1 INHALER INH SCH (07:39)
[2016-03-14] MEDS: TIOTROPIUM BROMIDE 5 PUFF/90 MCG INH INH SCH (07:39)
[2016-03-14] MEDS: CHOLECALCIFEROL 1000 INTER.UNIT TAB PO SCH (07:40)
[2016-03-14] MEDS: PROPRANOLOL HCL 80 MG TAB PO SCH (07:40)
[2016-03-14] MEDS: DULOXETINE HCL 60 MG CAP PO SCH (07:40)
[2016-03-14] MEDS: GABAPENTIN 600 MG TAB PO SCH (07:40)
[2016-03-14] MEDS: BuPROPion SR 150 MG TABCR PO SCH (07:41)
[2016-03-14] MEDS: LOSARTAN POTASSIUM 50 MG TAB PO SCH (07:41)
[2016-03-14 08:00] VITALS: O2SAT 92
[2016-03-14] MEDS ORDERED: ULT50X PO (08:14)
[2016-03-14] MEDS ORDERED: TAMS0.4C38 PO (08:14)
--- NOTE | 2016-03-14 08:24 | Discharge Instructions ---
Discharge Instructions Admission Reason for Admission: Hypotension, Syncope And Collapse Discharge Discharge Diagnosis / Problem: Arterial Hypotension Discharge Goals Goal(s): Decrease discomfort, Improve function Activity Recommendations Activity Limitations: resume your previous activity Lifting Limitations: gradually increase as tolerated Exercise/Sports Limitations: gradually increase as tolerated May Resume Sexual Activity: when tolerated Shower/Bathe: no limitations Driving or Machine Use: Do not operate machinery or drive after taking narcotics. . Instructions / Follow-Up Instructions / Follow-Up You were admitted to [facility] with hypotension and diagnosed with hypotension due to medication error; ie took extra losartan, metoprolol and/or hytrin. During your stay here you were treated with intravenous fluids to elevate your blood pressure and were briefly placed on a levophed drip while in the ER. This was discontinued. You were evaluated by orthopedics for a possibly septic joint , however, this was not the cause. You should continue physical therapy for your knee and follow up with Dr. Godoy in the outpatient clinic tomorrow as scheduled. You were evaluated while on your normal home blood pressure medications and found to have adequate pressure when they ARE TAKEN CORRECTLY. Medication which have changed include: Hytrin - STOP taking this medication. It is being replaced by flomax. Call your PCP if you experience difficulty with urination after starting this medication and stopping the hytrin. Continue taking other medications as prescribed. Imaging studies which were completed include Echocardiogram, and were normal. Follow up with your Primary Care Provider within 1 week. Current Hospital Diet Patient's current hospital diet: AHA Diet (Heart Healthy) Discharge Diet Recommended Diet: AHA Diet (Heart Healthy) Procedures Procedures Performed: Echocardiogram on 03/13/16 Pending Studies Studies pending at discharge: no Medical Emergencies . Who to Call and When: Medical Emergencies: If at any time you feel your situation is an emergency, please call 911 immediately. . Non-Emergent Contact Non-Emergency issues call your: Primary Care Provider Call Non-Emergent contact if: your pain is not controlled, your pain is worsening, your pain is concerning you . Past History Medical & Surgical History: (1) Hypotension arterial . "Provider Documentation" section prepared by Lucia Christianson. VTE Core Measure Inpt VTE Proph given/why not?: Enoxaparin (Lovenox)SQ
[2016-03-14] MEDS ORDERED: TRAM-10 PO (08:26)
[2016-03-14 08:29] VITALS: BP 119/73; PULSE 79; TEMP 36.9; O2SAT 92
--- NOTE | 2016-03-14 08:39 | Discharge Summary ---
Discharge Summary Admission Date: Mar 12, 2016 at 14:57 Discharge Date: Mar 14, 2016 Principal Diagnosis: arterial hypotension Problems/Secondary Diagnoses: (1) Asthma, Unspecified Status: Chronic (2) Carpal Tunnel Syndrome Status: Chronic (3) Hypertension Nos Status: Chronic (4) Rheumatoid Arthritis Status: Chronic Immunizations: Have You Had Influenza Vaccine: Yes Influenza Vaccine Date: Nov 16, 2010 History of Tetanus Vaccine?: Unknown History of Pneumococcal: No History of Hepatitis B Vaccine: Unknown Procedures: CHEST ONE VIEW PORTABLE CLINICAL HISTORY: Fever. Dizziness. COMPARISON STUDY: Chest radiograph September 28, [address] performed earlier today. FINDINGS: Lung volumes are normal. There is no pneumothorax or pleural effusion. Mild cardiomegaly is noted. There is no evidence of overt edema. Interstitial thickening is likely within normal limits or chronic. IMPRESSION: No acute cardiopulmonary findings. Electronically signed by: Alberto Suarez M.D. 03/12/2016 11:59 AM Dictated Date/Time: 03/12/2016 11:57 AM The status of this report is Signed. Draft = Not yet reviewed or approved by Radiologist. Signed = Reviewed and approved by Radiologist. CT ANGIOGRAM OF THE CHEST CLINICAL HISTORY: Syncope. COMPARISON STUDY: Chest x-ray dated 09/28/2015. TECHNIQUE: Following the IV administration of 120 cc of Optiray 320, CT angiogram of the chest was performed from the upper abdomen to the thoracic inlet utilizing the pulmonary embolus protocol. Images are reviewed in the axial, sagittal, and coronal planes. 3-D MIPS images are created and assessed. IV contrast was administered without complication. CT DOSE: 1401.54 mGycm FINDINGS: Thyroid: Imaged portions of the thyroid gland are normal in size and attenuation. Thoracic aorta: The thoracic aorta is normal in caliber and demonstrates standard 3-vessel arch anatomy. No dissection is seen. Pulmonary vasculature: The pulmonary trunk is normal in caliber. There are no filling defects identified in main, lobar, or proximal segmental pulmonary branches to suggest pulmonary embolus. Evaluation of the peripheral branches is degraded by suboptimal contrast opacification. Heart: The heart is enlarged and without pericardial effusion. There are coronary artery calcifications. Lungs and pleural spaces: Evaluation of the lung parenchyma is modestly degraded by respiratory motion artifact. There is moderate emphysema and mild apical scarring. No airspace consolidation is seen typical for pneumonia. No pleural effusion is identified. There is minimal dependent atelectasis. The trachea and central airways are clear. Mediastinum: There is no mediastinal lymphadenopathy. Nell: Clear. Axillae: There is no axillary lymphadenopathy. Upper abdomen: There is a small hiatal hernia. The gastric mucosa appears thickened and hyperemic as well as slightly irregular. This is greatest in the proximal body. Partially visualized upper abdominal viscera is otherwise within normal limits. Skeletal structures: No lytic or blastic bony lesions are seen. IMPRESSION: 1. There is no evidence of pulmonary embolus in the main, lobar, or proximal segmental pulmonary arteries. 2. Cardiomegaly and emphysema. 3. There is no airspace consolidation or pleural effusion. 4. The gastric mucosa appears thickened, hyperemic, and somewhat irregular. Correlate clinically for evidence of gastritis. This is not well assessed by CT. Consider follow-up with endoscopy for further assessment and to exclude the possibility of underlying mass. Electronically signed by: Chaitanya Soliman M.D. 03/12/2016 11:52 AM Dictated Date/Time: 03/12/2016 11:42 AM The status of this report is Signed. Draft = Not yet reviewed or approved by Radiologist. Signed = Reviewed and approved by Radiologist. <AttendingPhy></AttendingPhy> <FamilyPhy>Doc Morejon M.D.</ FamilyPhy> <PrimaryPhy>Doc Morejon M.D.</PrimaryPhy> <UnitNumber> [id number]</UnitNumber> <VisitNumber>[id number]</VisitNumber Patient Name: MAYNORMICHAEL Armand Unit Number: [id number] Dictated: 03/12/161142 Transcribed: 03/12/161142 EV Printed Date/Time: [~ rep prt dt]/[~ rep prt tm] [~ rep ct labl] - [~ rep ct ivnm] [facility] [place] [place] [address] Dictated: 03/12/161142 Transcribed: 03/12/16 114 EV Printed Date/Time: [~ rep prt dt]/[~ rep prt tm] [~ rep ct labl] - [~ rep ct ivnm] Patient: MICHAEL MCGUIRE Address1: [address] [facility] Rec: [id number] Address2: Acct ID: [id number] [facility] Zip: [place] [address] Date: 1955 Sex: M Room/Bed: Ref Phy: Doc Morejon M.D. SC: MOON Jones Phy: Report #: [id number] [place] Phy: Doc Morejon M.D. Test: HWO Admit Phy: Strategic Planning Manager: MUKESH Interpreting Phy: Chaitanya Soliman M.D. Diagnosis: DIZZINESS Ordering Phy: Jono Watson DO Service Date: 03/12/16 Admit Date: 03/12/16 MNE: [id number] CONF: DICTATED BY: Chaitanya Soliman M.D.]] CC: Jono Watson, Doc Garvey M.D. Endcc: [~ rep ct add3]] CT SCAN OF THE BRAIN WITHOUT IV CONTRAST CLINICAL HISTORY: Syncope. COMPARISON STUDY: MRI of the brain dated 10/06/2010. TECHNIQUE: Unenhanced axial CT scan of the brain is performed from the vertex to the skull base. Automated dose control exposure was utilized. FINDINGS: Brain parenchyma: The brain parenchyma is normal in appearance. There is no hemorrhage, mass effect, or evidence of acute territorial ischemia by CT criteria. Givens-white matter is preserved. No extra-axial fluid collection is seen. Ventricles, sulci, cisterns: Normal in configuration. Intracranial vasculature: The visualized intracranial vasculature at the skull base is normal in appearance. Calvarium: There is no depressed calvarial fracture. Sinuses and mastoids: The visualized paranasal sinuses are clear. The mastoid air cells are well pneumatized. Orbits: The bony orbits are grossly intact. IMPRESSION: There is no hemorrhage, mass effect, or evidence of acute territorial ischemia by CT criteria. Electronically signed by: Chaitanya Soliman M.D. 03/12/2016 11:45 AM Dictated Date/Time: 03/12/2016 11:43 AM The status of this report is Signed. Draft = Not yet reviewed or approved by Radiologist. Signed = Reviewed and approved by Radiologist. <AttendingPhy></AttendingPhy> <FamilyPhy>Doc Morejon M.D.</ FamilyPhy> <PrimaryPhy>oDc Morejon M.D.</PrimaryPhy> <UnitNumber> [id number]</UnitNumber> <VisitNumber>[id number]</VisitNumber> <PatientName> MICHAEL MCGUIRE</PatientName> <DateOfBirth>1955</DateOfBirth> <Location> [facility]</Location> <ServiceDate>03/12/16</ServiceDate> <MNE>ESINDI</MNE> < OrderingPhy>Jono Watson DO</OrderingPhy> <OrderingPhyMNE>f rep ord dr faustin</ OrderingPhyMNE> <DictatingPhyMNE>f rep dict dr faustin</DictatingPhyMNE> <CCListMNE> f rep ct mne</CCListMNE> <AdmittingPhyMNE>f pt admit dr faustin</AdmittingPhyMNE> < AttendingPhyMNE>f pt attend dr faustin</AttendingPhyMNE> <ConsultingPhyMNE>f pt consult dr faustin</ConsultingPhyMNE> <FamilyPhyMNE>f pt fam dr faustin</FamilyPhyMNE> <OtherPhyMNE>f pt other dr faustin</OtherPhyMNE> < PrimaryPhyMNE>f pt prim care dr faustin</PrimaryPhyMNE> <ReferringPhyMNE>f pt referring dr faustin</ReferringPhyMNE> Patient Name: MICHAEL MCGUIRE Unit Number: [id number] Dictated: 03/12/161522 Transcribed: 03/12/161522 ARG Printed Date/Time: [~ rep prt dt]/[~ rep prt tm] [~ rep ct labl] - [~ rep ct ivnm] [facility] [place] [address] Dictated: 03/12/161522 Transcribed: 03/12/161522 ARG Printed Date/Time: [~ rep prt dt]/[~ rep prt tm] [~ rep ct labl] - [~ rep ct ivnm] LEFT KNEE 1 OR 2 VIEWS ROUTINE CLINICAL HISTORY: Pain and redness status post total knee arthroplasty COMPARISON: 02/11/2016 DISCUSSION: There are postsurgical changes of a total left knee arthroplasty. No fractures are visualized. There are no cortical destructive lesions. There is diffuse soft tissue edema anteriorly. There is a probable small joint effusion. IMPRESSION: Diffuse anterior soft tissue edema. Postsurgical changes of total left knee arthroplasty. No evidence of fracture. No bony destructive lesions are visualized. Electronically signed by: Oscar Blunt M.D. 03/12/2016 3:24 PM Dictated Date/Time: 03/12/2016 3:23 PM The status of this report is Signed. Draft = Not yet reviewed or approved by Radiologist. Signed = Reviewed and approved by Radiologist. <AttendingPhy></AttendingPhy> <FamilyPhy>Doc Morejon M.D.</ FamilyPhy> <PrimaryPhy>Doc Morejon M.D.</PrimaryPhy> <UnitNumber> [id number]</UnitNumber> <VisitNumber>[id number]</VisitNumber> <PatientName> MICHAEL MCGUIRE</PatientName> <DateOfBirth>1955</DateOfBirth> <Location> [facility]</Location> <ServiceDate>03/12/16</ServiceDate> <MNE>ESINDI</MNE> < OrderingPhy>Carlos Corado D.O.</OrderingPhy> <OrderingPhyMNE>f rep ord dr faustin< /OrderingPhyMNE> <DictatingPhyMNE>f rep dict dr faustin</DictatingPhyMNE> <CCListMNE >f rep ct ramin</CCListMNE> <AdmittingPhyMNE>f pt admit dr faustin</AdmittingPhyMNE> < AttendingPhyMNE>f pt attend dr faustin</AttendingPhyMNE> <ConsultingPhyMNE>f pt consult dr faustin</ConsultingPhyMNE> <FamilyPhyMNE>f pt fam dr faustin</FamilyPhyMNE> <OtherPhyMNE>f pt other dr faustin</OtherPhyMNE> < PrimaryPhyMNE>f pt prim care dr faustin</PrimaryPhyMNE> <ReferringPhyMNE>f pt referring dr faustin</ReferringPhyMNE> Consultations: Orthopedics (Shelley Christianson PA-C) Medication Reconciliation New Medications: Tamsulosin Hcl (Flomax) 0.4 Mg Cap 1 CAP PO DAILY for 30 Days, #30 CAP 0 Refills Tramadol (Ultram) 50 Mg Tab 50 MG PO Q6H PRN for Pain for 7 Days, #28 TAB Continued Medications: Acetaminophen (Tylenol) 325 Mg Tab 650 MG PO BID PRN for PRN, TAB Albuterol Hfa (Ventolin Hfa) Unknown Strength Aers 2 PUFF PO QID PRN for Shortness of Breath, #1 INHALER Alprostadil (Vasodilator) ([place]) 1,000 Mcg Sup 1000 MCG INT UTER DAILY PRN for PRN Bupropion HCl (Bupropion HCl Sr) 150 Mg Tabcr 150 MG PO QAM Capsaicin (Capsaicin) 0.025 % Cre 0.25 % TOP BID PATIENT MED LIST HAS .25% PATIENT DOES NOT KNOW PERCENTAGE DOSE OF CREAM Cholecalciferol (Vitamin D3) 1,000 Unit Tab 2 TAB PO DAILY, TAB 3 Refills Cyclobenzaprine Hcl (Flexeril) 10 Mg Tab 0.5 TAB PO TID PRN for Muscle Spasms for 30 Days, #90 TAB Diclofenac (Voltaren) 50 Mg Tabec 50 MG PO DAILY PRN for Pain, TAB Duloxetine HCl (Duloxetine HCl) 60 Mg Cap 60 MG PO QAM Enoxaparin (Lovenox) 30 Mg/0.3 Ml Inj 30 MG SQ Q12H, SYR Gabapentin (Neurontin) 300 Mg Cap 600 MG PO TID, CAP Hydroxyzine HCl (Hydroxyzine HCl) 10 Mg Tab 10 MG PO BID PRN for Anxiety Lidocaine (Lidocaine) 4 % Cre 1 DOSE TOP 5XD PRN for PRN Losartan Potassium (Cozaar) 100 Mg Tab 100 MG PO QAM, TAB Mometasone Furoate (Inhalation (Asmanex Twisthaler 120 Me) 220 Mcg/Inh Aer 1 PUFF INH DAILY Omeprazole (Prilosec) 40 Mg Cap 40 MG PO BID for 30 Days, #60 CAP 3 Refills Propranolol (Inderal) 80 Mg Tab 80 MG PO BID, TAB Tiotropium [place] (Spiriva Handihaler) 30 Puff/540 Mcg Aerp 1 CAP INH DAILY, INHALER Discontinued Medications: Terazosin Hcl (Hytrin) 10 Mg Cap 10 MG PO HS, CAP Discharge Exam The patient was seen and examined this morning. Pt reports feeling well. His left knee is still painful with movement, rates 7/10. He denies chest pain, shortness of breath, abd pain, n/v/d/c, lightheadedness or dizziness. Discussion was held about echocardiogram report with the patient, study was normal. He is agreeable to discharge today. Review of Systems: Constitutional: No chills, No fever, No sweats Eyes: No redness ENT: No sore throat, No tinnitus Respiratory: No cough, No dyspnea on exertion, No shortness of breath, No sputum Cardiovascular: No chest pain, No palpitations Abdomen: No constipation, No diarrhea, No nausea, No pain, No vomiting Musculoskeletal: No calf pain, No joint pain, No swelling Genitourinary - Male: No dysuria, No hematuria, No urinary retention Neurologic: No numbness/tingling, No weakness Physical Exam: General Appearance: WD/WN, no apparent distress Eyes: PERRL, EOMI ENT: pharynx normal Neck: supple, no JVD Respiratory/Chest: lungs clear, no respiratory distress, no accessory muscle use Cardiovascular: regular rate, rhythm, no murmur, normal peripheral pulses Abdomen / GI: normal bowel sounds, non tender, soft Extremities: no calf tenderness, no pedal edema, + pertinent finding (Left knee edema is reducing, no erythema, minimal pain with palpation. + Pain with active ROM. ) Neurologic/Psychiatric: alert, normal mood/affect, oriented x 3 Skin: normal color, warm/dry (Shelley Christianson PA-C) Hospital Course H&P per Lucia Christianson PA-C History of Present Illness This is a 61 yo M with PMHx rheumatoid arthritis, osteoarthritis, s/p L TKA done on Feb 11, [address] Godoy, who presents after an episode of syncope this morning around 9:30 am. Pt reports his was in the house and witnessed the event, no injury to the head sustained during episode. Pt has been doing well with the knee since the surgery, but developed pain in the knee last night after taking a walk in his garage. He denies trauma or fall. He has not been participating in formal PT/OT, but has been doing the exercises in his home as directed. Today his knee is so painful he can barely bend it more than 15 degrees. His knee is swollen and warm to the touch although not red. He has been using sq lovenox injections twice daily for anticoagulation. His next follow up appointment is scheduled for this upcoming Tuesday in Dr. Godoy's office. He denies any recent illnesses or sick contacts, no shortness of breath or chest pain. In the ED the pts SBP was in the 70s, was administered 2 L NSS wide open with slight improvement. Blood cultures, UA and Ucx obtained. No lactic acid. He was started on a levophed gtt, currently running at 0.03 mcg/hr. CXR, CT of the head, CTA chest were completed and negative for acute findings. BP is currently stable at 104/64. PE: General Appearance: WD/WN, no apparent distress, + obese Head: normocephalic, atraumatic Eyes: PERRL, EOMI ENT: hearing grossly normal, + pertinent finding (mucous membranes dry) Neck: no adenopathy, no JVD Respiratory/Chest: lungs clear, no respiratory distress, no accessory muscle use Cardiovascular: regular rate, rhythm, no murmur, normal peripheral pulses Abdomen/GI: normal bowel sounds, non tender, soft, + pertinent finding ( abdominal hernia at midline, obese) Back: normal inspection Extremities/Musculoskelatal: no calf tenderness, no pedal edema, + pertinent finding (L TKA, surgical incision well healed, warm to touch, + edema, nonerythematous. + tenderness to light touch) Neurologic/Psych: alert, normal mood/affect, oriented x 3 Skin: normal color, warm/dry, + pertinent finding (multiple tattoos) Hospital Course This is a 61 yo M with PMHx rheumatoid arthritis, osteoarthritis, s/p L TKA done on Feb 11, [address] Godoy, depression and anxiety who presents after an episode of syncope this morning around 9:30 am. Arterial hypotensive episode, unknown cause - Pt has received 3 L NSS bolus infusions in the ED and was placed on a Levophed gtt at 0.03 mcg. Pt tolerated fluid resuscitation well and didn't require levophed gtt so was placed in tele. - Pt tolerated restart of [facility] meds losartan 100 mg QAM and propranolol 80 mg BID , hytrin 10 mg QHS - pt unsure at time of admission if he took too many losartan in the morning. Possible that the pt took hytrin last night and that this in addition to med error caused him to become hypotensive. Will plan to d/ c hytrin as this can significantly reduce blood pressure if taken incorrectly and will change to flomax. - ECHO report with preserved EF and no wall or valvular abnormalities. - cardiac enzymes are negative x 3 - Possible septic joint with severe pain, warmth, and edema upon admission- knee is not hot like it was yesterday, swelling has improved. Color was never erythematous although pt reports pain in his knee is same as it was yesterday. - Checking procalcitonin and CRP - BCx negative - UA cancelled - nothing to follow - CT chest and head reviewed and is essentially negative. No evidence of PE. Bowel thickening of the mucosa noted. GAUTAM - not likely due to dehydration as pt reports eating and drinking well - Continue on NSS at 100 mL/hr for now - Cr. 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 - Continue flexeril for muscle spasm - Will order tramadol for pain at this time - no narcotics with potential dropping BP - pt has follow up with Dr. Godoy tomorrow. - Ortho consulted- appreciate recs; unknown source as xrays of the knee do not reveal any acute fracture or misalignment of the implant. - Continue lovenox sq BID, INR was subtherapeutic upon admission at 1.0 - PT/OT consults - Continue to WBAT, ice and elevate the knee. Depression/Anxiety - Cont [facility] Wellbutrin SR 150 mg daily, celexa 60 mg daily - Hydroxyzine 10 mg BID for anxiety DVT ppx: cont lovenox injections Code Status: Full Code Disposition: From home, dc today. Total Time Spent: Greater than 30 minutes This includes examination of the patient, discharge planning, medication reconciliation, and communication with other providers. (Shelley Christianson, JOCELYN) Discharge Instructions Please refer to the electronic Patient Visit Report (Discharge Instructions) for additional information. (Shelley Christianson, JOCELYN) agree with PA d/c summary (Oleg Phillips MD)
[2016-06-20] MEDS ORDERED: ATR10 PO (12:02)
[2016-06-20] MEDS ORDERED: DICL50TA3 PO (12:02)
[2016-06-20] MEDS ORDERED: SPRIN/30 INH (12:02)
[2016-06-20] MEDS ORDERED: CHOL1000 PO (12:02)
[2016-06-20] MEDS ORDERED: PROP80TA2 PO (14:54)
[2016-06-20] MEDS ORDERED: CYM60 PO (14:54)
[2016-06-20] MEDS ORDERED: MOME220A INH (15:44)
[2016-07-20] MEDS ORDERED: GABA-113 PO (08:16)
== END 2016-03-14 12:43 | disposition home health service (06) | DRG 312 ==
LOC: ENRESERVTM → ENRESERVDT → EDBD 10:31 → C.EDA 10:32 → UNDOADMIN 14:57 → C.2T 14:57
PROVIDERS: ADMIT Internal Medicine; ATTEND Family Medicine
DX: I95.2 Hypotension due to drugs (principal); N17.9 Acute kidney failure, unspecified; T44.6X5A Adverse effect of alpha-adrenoreceptor antagonists, initial encounter; E86.1 Hypovolemia; S80.02XA Contusion of left knee, initial encounter; I10 Essential (primary) hypertension; J45.909 Unspecified asthma, uncomplicated; M06.9 Rheumatoid arthritis, unspecified; N40.0 Benign prostatic hyperplasia without lower urinary tract symptoms; F32.9 Major depressive disorder, single episode, unspecified; F41.9 Anxiety disorder, unspecified; J44.9 Chronic obstructive pulmonary disease, unspecified; E66.9 Obesity, unspecified; Z51.81 Encounter for therapeutic drug level monitoring; Z79.899 Other long term (current) drug therapy; Z96.652 Presence of left artificial knee joint; Z86.14 Personal history of Methicillin resistant Staphylococcus aureus infection; Z68.36 Body mass index [BMI] 36.0-36.9, adult; Z82.49 Family history of ischemic heart disease and other diseases of the circulatory system; Y92.003 Bedroom of unspecified non-institutional (private) residence as the place of occurrence of the external cause; W06.XXXA Fall from bed, initial encounter; Y99.8 Other external cause status

== ENCOUNTER → 2016-05-17 | Outpatient (CLI) | payer OTHER ==
[~2016-05-17] MED LIST changes: +ACET-1311 PO; +ALBUAER INH; +ALPR1SUP6 INT UTER; -ATEN-175 PO; +ATR10 PO; -BUPR-83 PO; +CHOL1000 PO; -CHOLCRY PO; +CLC100 PO; +CYM60 PO; +DICL50TA3 PO; +DLD/2 PO; +DOXY100C76 PO; +GABA-113 PO; +GLCSR500 PO; +HYDR2TAB48 PO; +HYDR4TAB2 PO; +LIDO1CRE31 TOP; +LOSA1TAB38 PO; +LVNIS30 SQ; +MOME220A INH; +OMEP20CA9 PO; -OXYC1TAB3 PO; +PROP80TA2 PO; +SPRIN/30 INH; +TAMS0.4C38 PO; -TERA1CAP63 PO; -TRAZ100T29 PO; +WLLSR150 PO; -ZOLP5TAB PO
== END | disposition home or self-care (01) ==
LOC: C.RDSM 13:13
PROVIDERS: ATTEND Physical Medicine & Rehabilitation Sports Medicine
DX: M17.0 Bilateral primary osteoarthritis of knee (principal)

== ENCOUNTER 2016-06-20 18:08 | Inpatient (IN) | payer OTHER ==
[~2016-06-20] VITALS: Ht 180.3 cm; Wt 120.5 kg
[~2016-06-20 18:08] MED LIST changes: -ALBUAER INH; -CLC100 PO; -DLD/2 PO; -DOXY100C76 PO; -GABA-113 PO; -GLCSR500 PO; -HYDR2TAB48 PO; -HYDR4TAB2 PO; -LOSA1TAB38 PO; -LVNIS30 SQ; -OMEP20CA9 PO
[2016-06-20] MEDS ORDERED: VANCOMYCIN 1GM/270ML NSS IV STA (18:21)
[2016-06-20] MEDS ORDERED: KETOROLAC TROMETHAMINE 30 MG/ML VIAL IV STA (18:21)
[2016-06-20] MEDS ORDERED: MoRPHine SULFATE 10 MG/ML CARP/VIAL IV PRN (18:30)
[2016-06-20] MEDS ORDERED: MoRPHine SULFATE 4 MG/ML 1 ML CARP\\VIAL ONE ×3 (18:43→23:40)
[2016-06-20] MEDS ORDERED: TAMS0.4C38 PO (18:47)
[2016-06-20] MEDS ORDERED: HYDR4TAB2 PO (18:47)
[2016-06-20] MEDS ORDERED: DLD/2 PO (18:47)
[2016-06-20] MEDS ORDERED: ALBUAER INH (18:47)
[2016-06-20] MEDS ORDERED: OMEP20CA9 PO (18:47)
[2016-06-20 19:03] LABS: BASO % 0.3 %; BASO ABS # 0.04 K/uL (0-0.2); COMPLETE YES; EOS % 2.4 %; HEMATOCRIT 43.4 % (42-52); IG% 0.5 %; LYMPH % 11.9 %; LYMPH ABS # 1.57 K/uL (1.2-3.4); MEAN CELL VOLUME 86.1 fL (80-100); MEAN CORPUSCULAR HEMOGLOBIN 28.6 pg (25-34); MEAN CORPUSCULAR HGB CONC 33.2 g/dl (32-36); MONO % 11.1 %; NEUT % 73.8 %; PLATELET COUNT 245 K/uL (130-400); RED BLOOD COUNT 5.04 M/uL (4.7-6.1); WHITE BLOOD COUNT 13.17 K/uL (4.8-10.8)
[2016-06-20 19:18] LABS: BUN/CREATININE RATIO 12.1 (10-20); CALCIUM 9.1 mg/dl (8.5-10.1); CREATININE 0.97 mg/dl (0.60-1.40)
[2016-06-20] MEDS ORDERED: LOSA1TAB38 PO (21:32)
--- NOTE | 2016-06-20 21:46 | DIAGNOSTIC IMAGING REPORT ---
ULTRASOUND LEFT VENOUS DOPPLER UPR EXT UNIL CLINICAL HISTORY: Left arm swelling and redness COMPARISON STUDY: No previous studies for comparison. FINDINGS: No intraluminal thrombus was visualized. The internal jugular, subclavian, axillary, cephalic, brachial, basilic, radial, and ulnar veins were patent. There is minor stranding within the left cephalic vein at the level of the antecubital fossa. This is felt to be chronic. With thin the left mid medial upper arm, there is a heterogeneous soft tissue mass measuring 6.2 x 15.4 x 3.5 cm. This demonstrates only minimal blood flow. The lesion is nonspecific, but may represent an intramuscular hemorrhage or developing phlegmon. Clinical and imaging follow-up is recommended. IMPRESSION: 1. Fibrin stranding within the left cephalic vein, likely chronic 2. No evidence of acute left upper extremity DVT 3. 6.2 x 15.4 x 3.5 cm heterogeneous soft tissue mass within the left mid medial upper arm. Likely diagnostic considerations include intramuscular hemorrhage, or developing phlegmon. A neoplasm is felt to be statistically less likely. Clinical and imaging follow-up is recommended. Electronically signed by: Oscar Blunt M.D. 06/20/2016 9:44 PM Dictated Date/Time: 06/20/2016 8:56 PM
--- NOTE | 2016-06-20 22:40 | EMERGENCY ROOM VISIT NOTE ---
History Report prepared by Javier: Chaitanya Taylor Under the Supervision of: Dr. Phill Reyes D.O. First contact with patient: 18:16 Chief Complaint: INFECTION Stated Complaint: INSECT BITE TO LEFT ARM AND RT EYE Nursing Triage Summary: Pt here one month ago with a "partially collapsed lung". Last night "something popped." More sob and "everything cramps on the right side when I take a deep breath." History of Present Illness The patient is a 61 year old male who presents to the Emergency Room with complaints of sudden possible insect bites beginning two days prior to arrival. He currently rates his discomfort as a 10/10 in severity. The patient complains of a bite above his right eye. He also complains of redness, swelling, and pain to his left inner upper arm that he believes may be due to a bite, as well. As per , the patient squeezed the bump above his right eye and got a large amount of pus out. He notes a history of MRSA twice. The patient states he had two operations on his right hand to clean it out. He denies a history of IV drug use. Source of History: patient Onset: two days 1[employer] GR[employer] Position: eye (above right), arm (left upper) Symptom Intensity: 10/10 Quality: other (possible insect bites) Timing: other (sudden) Note: Associated symptoms: redness, swelling, and pain to his left inner upper arm and a red bump above right eyebrow. Review of Systems See HPI for pertinent positives & negatives. A total of 10 systems reviewed and were otherwise negative. Past Medical & Surgical Medical Problems: (1) Abdominal pain (2) Asthma, Unspecified (3) Hypertension Nos (4) Hypotension arterial (5) Left knee DJD (6) MRSA infection (7) Preseptal cellulitis of right upper eyelid (8) Rheumatoid Arthritis (9) Syncope and collapse Surgical Problems: (1) Carpal Tunnel Syndrome Family History Hypertension Social History Smoking Status: Never Smoker Alcohol Use: none Drug Use: none Marital Status: Housing Status: lives with family Occupation Status: unemployed Current/Historical Medications Scheduled Cholecalciferol (Vitamin D3), 2,000 INTER.UNIT PO DAILY Duloxetine HCl (Duloxetine HCl), 60 MG PO QAM Losartan Potassium (Cozaar), 100 MG PO QAM Mometasone Furoate (Inhalation (Asmanex Twisthaler 120 Me), 1 PUFF INH DAILY Omeprazole (Prilosec), 40 MG PO DAILY Propranolol (Inderal), 80 MG PO BID Tamsulosin Hcl (Flomax), 0.4 MG PO DAILY Tiotropium [place] (Spiriva Handihaler), 1 CAP INH DAILY Scheduled PRN Albuterol Sulfate (Proventil Hfa), 2 PUFFS INH QID PRN for Shortness of Breath Diclofenac (Voltaren), 50 MG PO DAILY PRN for Pain/Inflamation Hydromorphone HCl (Hydromorphone HCl), 2 MG PO Q4H PRN for Pain Hydromorphone Hcl (Dilaudid), 4 MG PO Q4H PRN for Pain Hydroxyzine HCl (Hydroxyzine HCl), 10 MG PO BID PRN for Anxiety Allergies Coded Allergies: Sulfa Antibiotics (Verified Allergy, Unknown, RASH / ITCHINESS, 02/22/16) Physical Exam Vital Signs Date Time Temp Pulse Resp B/P Pulse Ox O2 Delivery O2 Flow Rate FiO2 06/20/16 22:42 96 20 145/97 92 Room Air 06/20/16 21:02 90 18 178/105 94 Room Air 06/20/16 20:17 85 20 94 Room Air 06/20/16 18:12 36.5 88 20 176/107 95 Room Air Physical Exam CONSTITUTIONAL/VITAL SIGNS: Reviewed / noted above. GENERAL: Non-toxic in appearance. INTEGUMENTARY: Warm, dry, and [place]. HEAD: Normocephalic. EYES: without scleral icterus or trauma. ENT/OROPHARYNX: clear and moist. LYMPHADENOPATHY/NECK: Is supple without lymphadenopathy or meningismus. RESPIRATORY: Lungs clear and equal. CARDIOVASCULAR: Regular rate and rhythm. GI/ABDOMEN: Soft and nontender. No organomegaly or pulsatile mass. No rebound or guarding. Normal bowel sounds. EXTREMITIES: Erythema, swelling, and induration to the left medial biceps region. Area of redness about the size of a dime overlying the right eyebrow laterally that appears to have recently drained. No active drainage at this time. Warm and well perfused. BACK: No CVA tenderness. NEUROLOGICAL: Intact without focal deficits. PSYCHIATRIC: normal affect. MUSCULOSKELETAL: Normally developed with good muscle tone. Medical Decision & Procedures ER Provider Diagnostic Interpretation: US results as stated below per my review and radiologist interpretation: ULTRASOUND LEFT VENOUS DOPPLER UPR EXT UNIL CLINICAL HISTORY: Left arm swelling and redness COMPARISON STUDY: No previous studies for comparison. FINDINGS: No intraluminal thrombus was visualized. The internal jugular, subclavian, axillary, cephalic, brachial, basilic, radial, and ulnar veins were patent. There is minor stranding within the left cephalic vein at the level of the antecubital fossa. This is felt to be chronic. With thin the left mid medial upper arm, there is a heterogeneous soft tissue mass measuring 6.2 x 15.4 x 3.5 cm. This demonstrates only minimal blood flow. The lesion is nonspecific, but may represent an intramuscular hemorrhage or developing phlegmon. Clinical and imaging follow-up is recommended. IMPRESSION: 1. Fibrin stranding within the left cephalic vein, likely chronic 2. No evidence of acute left upper extremity DVT 3. 6.2 x 15.4 x 3.5 cm heterogeneous soft tissue mass within the left mid medial upper arm. Likely diagnostic considerations include intramuscular hemorrhage, or developing phlegmon. A neoplasm is felt to be statistically less likely. Clinical and imaging follow-up is recommended. Electronically signed by: Oscar Blunt M.D. 06/20/2016 9:44 PM Laboratory Results 06/20/16 18:50 Red Blood Count 5.04, Mean Corpuscular Volume 86.1, Mean Corpuscular Hemoglobin 28.6, Mean Corpuscular Hemoglobin Concent 33.2, Mean Platelet Volume 9.0, Neutrophils (%) (Auto) 73.8, Lymphocytes (%) (Auto) 11.9, Monocytes (%) (Auto) 11.1, Eosinophils (%) (Auto) 2.4, Basophils (%) (Auto) 0.3, Neutrophils # (Auto ) 9.72, Lymphocytes # (Auto) 1.57, Monocytes # (Auto) 1.46, Eosinophils # (Auto ) 0.32, Basophils # (Auto) 0.04 06/20/16 18:50 Test 06/20/16 18:50 White Blood Count 13.17 K/uL (4.8-10.8) Red Blood Count 5.04 M/uL (4.7-6.1) Hemoglobin 14.4 g/dL (14.0-18.0) Hematocrit 43.4 % (42-52) Mean Corpuscular Volume 86.1 fL (80-100) Mean Corpuscular Hemoglobin 28.6 pg (25-34) Mean Corpuscular Hemoglobin Concent 33.2 g/dl (32-36) Platelet Count 245 K/uL (130-400) Mean Platelet Volume 9.0 fL (7.4-10.4) Neutrophils (%) (Auto) 73.8 % Lymphocytes (%) (Auto) 11.9 % Monocytes (%) (Auto) 11.1 % Eosinophils (%) (Auto) 2.4 % Basophils (%) (Auto) 0.3 % Neutrophils # (Auto) 9.72 K/uL (1.4-6.5) Lymphocytes # (Auto) 1.57 K/uL (1.2-3.4) Monocytes # (Auto) 1.46 K/uL (0.11-0.59) Eosinophils # (Auto) 0.32 K/uL (0-0.5) Basophils # (Auto) 0.04 K/uL (0-0.2) RDW Standard Deviation 42.8 fL (36.4-46.3) RDW Coefficient of Variation 13.5 % (11.5-14.5) Immature Granulocyte % (Auto) 0.5 % Immature Granulocyte # (Auto) 0.06 K/uL (0.00-0.02) Anion Gap 4.0 mmol/L (3-11) Est Creatinine Clear Calc Drug Dose 106.9 ml/min Estimated GFR () 97.9 Estimated GFR (Non- 84.5 BUN/Creatinine Ratio 12.1 (10-20) Calcium Level 9.1 mg/dl (8.5-10.1) Laboratory results as stated above per my review. Medications Administered Medications (Trade) Dose Ordered Sig/Tash Route Start Time Stop Time Status Last Admin Dose Admin Vancomycin HCl (Vancomycin 1gm/ 270ml Nss) 1 gm NOW STAT IV 06/20/16 18:21 06/20/16 18:25 DC 06/20/16 19:43 1 GM Ketorolac Tromethamine (Toradol Inj) 30 mg NOW STAT IV 06/20/16 18:21 06/20/16 18:25 DC 06/20/16 18:51 30 MG Morphine Sulfate (MoRPHine SULFATE INJ) 4 mg STK-MED ONCE .ROUTE 06/20/16 18:43 06/20/16 18:44 DC 06/20/16 18:53 4 MG Morphine Sulfate (MoRPHine SULFATE INJ) 4 mg STK-MED ONCE .ROUTE 06/20/16 21:04 06/20/16 21:05 DC 06/20/16 21:13 4 MG Enoxaparin Sodium (Lovenox Inj) 40 mg Q24H SQ 06/20/16 23:30 07/20/16 23:29 06/20/16 23:44 40 MG Morphine Sulfate (MoRPHine SULFATE INJ) 4 mg STK-MED ONCE .ROUTE 06/20/16 23:40 06/20/16 23:41 DC 06/20/16 23:43 4 MG ED Course 1821: Previous medical records were reviewed. The patient was evaluated in room C4. A complete history and physical examination was performed. 1820: Ordered Toradol Inj 30 mg IV, Vancomycin HCl 1 gm IV. 1829: Ordered Morphine Sulfate 4 mg IV. 2242: I spoke to CARMEL Johnson (Research Instrumentation Technician Hospitalist) about the patient's case, and he will follow the patient for further evaluation. Medical Decision Etiologies such as cellulitis, abscess, MRSA infection, DVT, necrotizing fasciitis, dermatitis, drug eruption, as well as others were entertained.. This is a 61-year-old male who presents to the ED with a chief complaint of left arm infection and right eyelid infection. The patient states that he has had the symptoms for few days. He believes he was bitten by some insects. The patient states that there was some drainage from the right eyelid yesterday. He states that it seems to be improving. The patient also reports swelling, discomfort and redness in the left biceps area. Patient's exam reveals some induration, erythema and fullness in the left medial biceps area. There is also a dime-sized erythematous region over the right eyelid. Patient's vital signs are stable. He is afebrile. He is nontoxic in appearance. He does report a history of MRSA. White blood cell count was 13.7. PRP is unremarkable. Glucose is 134. Ultrasound left upper extremity reveals no DVT. There is a 6 x 15 x 3 cm phlegmonous like infection noted on ultrasound in the left medial biceps region. Because of the pain, and infection and history of MRSA, the patient was treated with IV vancomycin. We will be seen by the hospitalist for further inpatient evaluation and care. Consults Time Called: [id number] Consulting Physician: CARMEL Johnson (Research Instrumentation Technician Hospitalist) Returned Call: [phone] I spoke to CARMEL Johnson (Research Instrumentation Technician Hospitalist) about the patient's case, and he will follow the patient for further evaluation. Impression Primary Impression: Cellulitis of left upper arm Additional Impression: MRSA infection Scribe Attestation The scribe's documentation has been prepared under my direction and personally reviewed by me in its entirety. I confirm that the note above accurately reflects all work, treatment, procedures, and medical decision making performed by me. Departure Information Dispostion Being Evaluated By Hospitalist (CARMEL Johnson (Research Instrumentation Technician Hospitalist)) Referrals Doc Morejon M.D. (PCP) Problem Qualifiers
--- NOTE | 2016-06-20 23:13 | History and Physical ---
History & Physical Date & Time of Service: June 20, 2016 at 22:56 Chief Complaint: Insect Bite To Left Arm And Rt Eye Primary Care Physician: Doc Morejon M.D. History of Present Illness 2 day history of rapidly progressive cellulitis around his right eye and left medial biceps. He has not been on any outpatient antibiotics. A pimple possibly from an insect bite started above his right eye 2 days previously and he popped it and large amount of pus extruded but afterwards it appeared to get more swollen and red since. He denies any change in his vision, no double vision or painful eye movements. Around the same time he has also had increased redness, swelling and pain to the medial aspect of his left upper arm. He is unsure where this has spread from but does not remember having any bites in this region. 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) Immunizations History of Influenza Vaccine: Yes Influenza Vaccine Date: Nov 16, 2010 History of Tetanus Vaccine?: Unknown History of Pneumococcal: No History of Hepatitis B Vaccine: Unknown Multi-Drug Resistant Organisms History of MDRO: Yes Type of MDRO: MRSA Allergies Coded Allergies: Sulfa Antibiotics (Verified Allergy, Unknown, RASH / ITCHINESS, 02/22/16) Home Medications Scheduled Cholecalciferol (Vitamin D3), 2,000 INTER.UNIT PO DAILY Duloxetine HCl (Duloxetine HCl), 60 MG PO QAM Losartan Potassium (Cozaar), 100 MG PO QAM Mometasone Furoate (Inhalation (Asmanex Twisthaler 120 Me), 1 PUFF INH DAILY Omeprazole (Prilosec), 40 MG PO DAILY Propranolol (Inderal), 80 MG PO BID Tamsulosin Hcl (Flomax), 0.4 MG PO DAILY Tiotropium [place] (Spiriva Handihaler), 1 CAP INH DAILY Scheduled PRN Albuterol Sulfate (Proventil Hfa), 2 PUFFS INH QID PRN for Shortness of Breath Diclofenac (Voltaren), 50 MG PO DAILY PRN for Pain/Inflamation Hydromorphone HCl (Hydromorphone HCl), 2 MG PO Q4H PRN for Pain Hydromorphone Hcl (Dilaudid), 4 MG PO Q4H PRN for Pain Hydroxyzine HCl (Hydroxyzine HCl), 10 MG PO BID PRN for Anxiety Review of Systems Constitutional: No chills, No fever Respiratory: + cough (productive black sputum last 2 months), + dyspnea on exertion, No dyspnea at rest, No shortness of breath, No sputum, No wheezing Cardiovascular: + claudication (6 months when), + edema (2 year at the end of the day), No PND, No chest pain, No orthopnea Abdomen: No GI bleeding, No constipation, No diarrhea, No nausea, No pain, No vomiting Musculoskeletal: + joint pain (right knee mainly), + muscle pain (right calf claudication) Genitourinary - Male: + dysuria (for a year), + urinary frequency, No hematuria Neurologic: + memory loss, + numbness/tingling (both feet) Endocrine: + excessive thirst, + excessive urination, + fatigue Hematologic / Lymphatic: No abnormal bleeding/bruising Integumentary: + problem reported (cellulitis on arm and eye), No itch Physical Exam Vital Signs Date Time Temp Pulse Resp B/P Pulse Ox O2 Delivery O2 Flow Rate FiO2 06/20/16 22:42 96 20 145/97 92 Room Air 06/20/16 21:02 90 18 178/105 94 Room Air 06/20/16 20:17 85 20 94 Room Air 06/20/16 18:12 36.5 88 20 176/107 95 Room Air General Appearance: no apparent distress, + obese Head: normocephalic, atraumatic Eyes: normal inspection, PERRL, EOMI ENT: normal ENT inspection, hearing grossly normal Neck: no adenopathy Respiratory/Chest: no respiratory distress, no accessory muscle use, + decreased breath sounds (at bases), + wheezing (on even small movements) Cardiovascular: regular rate, rhythm, no JVD, + pertinent finding (weak peripheral pulses PT/DP, radial pulses good) Abdomen/GI: normal bowel sounds, non tender, soft, + pertinent finding ( diastasis recti noted) Back: no CVA tenderness Extremities/Musculoskelatal: no calf tenderness, normal capillary refill, + pertinent finding (notes claudication on walking, right lower extremity swelling compared to left noted, patient reports recent scan for DVT was negative) Neurologic/Psych: no motor/sensory deficits, alert Skin: + pertinent finding (large area of cellulitis covering approximately half his upper arm, preseptal cellulitis with crust over right upper eyelid, no fluctuance noted, apart from pain no sign of compartment syndrome) Lymphatic: no adenopathy Diagnostics Laboratory Results Results Past 24 Hours Test 06/20/16 18:50 Range/Units White Blood Count 13.17 4.8-10.8 K/uL Red Blood Count 5.04 4.7-6.1 M/uL Hemoglobin 14.4 14.0-18.0 g/dL Hematocrit 43.4 42-52 % Mean Corpuscular Volume 86.1 80-100 fL Mean Corpuscular Hemoglobin 28.6 25-34 pg Mean Corpuscular Hemoglobin Concent 33.2 32-36 g/dl Platelet Count 245 130-400 K/uL Mean Platelet Volume 9.0 7.4-10.4 fL Neutrophils (%) (Auto) 73.8 % Lymphocytes (%) (Auto) 11.9 % Monocytes (%) (Auto) 11.1 % Eosinophils (%) (Auto) 2.4 % Basophils (%) (Auto) 0.3 % Neutrophils # (Auto) 9.72 1.4-6.5 K/uL Lymphocytes # (Auto) 1.57 1.2-3.4 K/uL Monocytes # (Auto) 1.46 0.11-0.59 K/uL Eosinophils # (Auto) 0.32 0-0.5 K/uL Basophils # (Auto) 0.04 0-0.2 K/uL RDW Standard Deviation 42.8 36.4-46.3 fL RDW Coefficient of Variation 13.5 11.5-14.5 % Immature Granulocyte % (Auto) 0.5 % Immature Granulocyte # (Auto) 0.06 0.00-0.02 K/uL Sodium Level 137 136-145 mmol/L Potassium Level 4.0 3.5-5.1 mmol/L Chloride Level 99 98-107 mmol/L Carbon Dioxide Level 34 21-32 mmol/L Anion Gap 4.0 3-11 mmol/L Blood Urea Nitrogen 12 7-18 mg/dl Creatinine 0.97 0.60-1.40 mg/dl Est Creatinine Clear Calc Drug Dose 106.9 ml/min Estimated GFR () 97.9 Estimated GFR (Non- 84.5 BUN/Creatinine Ratio 12.1 10-20 Random Glucose 134 70-99 mg/dl Calcium Level 9.1 8.5-10.1 mg/dl Microbiology Results 06/20/16 Blood Culture, Received Pending 06/20/16 Blood Culture, Received Pending Diagnostic Radiology ULTRASOUND LEFT VENOUS DOPPLER UPR EXT UNIL CLINICAL HISTORY: Left arm swelling and redness COMPARISON STUDY: No previous studies for comparison. FINDINGS: No intraluminal thrombus was visualized. The internal jugular, subclavian, axillary, cephalic, brachial, basilic, radial, and ulnar veins were patent. There is minor stranding within the left cephalic vein at the level of the antecubital fossa. This is felt to be chronic. With thin the left mid medial upper arm, there is a heterogeneous soft tissue mass measuring 6.2 x 15.4 x 3.5 cm. This demonstrates only minimal blood flow. The lesion is nonspecific, but may represent an intramuscular hemorrhage or developing phlegmon. Clinical and imaging follow-up is recommended. IMPRESSION: 1. Fibrin stranding within the left cephalic vein, likely chronic 2. No evidence of acute left upper extremity DVT 3. 6.2 x 15.4 x 3.5 cm heterogeneous soft tissue mass within the left mid medial upper arm. Likely diagnostic considerations include intramuscular hemorrhage, or developing phlegmon. A neoplasm is felt to be statistically less likely. Clinical and imaging follow-up is recommended. Electronically signed by: Oscar Blunt M.D. 06/20/2016 9:44 PM Dictated Date/Time: 06/20/2016 8:56 PM Impression Assessment and Plan 61 year old male with no known immunocompromised state presents with preseptal and left upper limb cellulitis with possible phlegmon formation. Will hold off further imaging at present and treat as cellulitis with vancomycin. No current concerns for orbital cellulitis from history or examination but this should be closely monitored. Cellulitis with coverage for MRSA due to previous infection - left upper arm and preseptal - blood cultures - Continue vancomycin - NSS 125 MLS/HR - Admit to med/surg - Should he clinically worsen recommended consulting orthopedics. - Continue home pain medication Dysuria, urinary frequency and Nocturia - with raised ALP concerning for bone mets - PSA - UA + micro +/- culture - Continue tamsulosin COPD/Asthma - wheezing on examination - Add duonebs Q6H - Continue home maintenance inhalers. - CXR Anxiety and depression - continue duloxetine Code - DNR as per patient wishes. VTE Prophylaxis - Lovenox 40 mg SQ dialy Disposition - Admit to med/surg Level of Care Med/Surg Advanced Directives Existing Living Will: Yes Resuscitation Status DO NOT RESUSCITATE VTE Prophylaxis VTE Risk Assessment Done? Y/N: Yes Risk Level: Moderate Given or contraindicated: Enoxaparin (Lovenox)SQ Resident Tracking Resident Involvement: Resident Care Provided Care Provided: Adult Hospital Medicine Assessment and Plan Attending Addendum: I have physically seen and examined this patient, have directed their medical care, have supervised the medical residents activities, and agree with the H&P as noted above, with the following changes: NONE
[2016-06-20] MEDS ORDERED: ONDANSETRON INJ 2 MG/ML 2 ML VIAL IV PRN (23:30)
[2016-06-20] MEDS ORDERED: POLYETHYLENE (MIRALAX) 17 GM PACK PO PRN (23:30)
[2016-06-20] MEDS ORDERED: ENOXAPARIN 40 MG/0.4 ML SYR SQ SCH (23:30)
[2016-06-20] MEDS ORDERED: MAGNESIUM HYDROXIDE SUSP 30 ML UDC PO PRN (23:30)
[2016-06-20] MEDS ORDERED: ALUMINUM/MAGNESIUM/SIMETH (MAALOX MAX) 30 ML UDC PO PRN (23:30)
[2016-06-20] MEDS ORDERED: IV FLUIDS COMPLETED PRN (23:45)
[2016-06-21] VITALS (13 sets, daily range): BP systolic 92–159; BP diastolic 57–91; PULSE 80–102; TEMP 36.6–37.6; O2SAT 90–98; Ht 180.3 cm; Wt 120.5 kg
[2016-06-21] MEDS ORDERED: hydrOXYzine HCL 10 MG TAB PO PRN
[2016-06-21] MEDS ORDERED: SODIUM CHLORIDE 0.9% 1000ML 1,000 ML IV SCH (01:00)
[2016-06-21] MEDS: HYDROmorphone HCL 2 MG TAB PO PRN ×6 (01:15→23:36)
[2016-06-21] MEDS ORDERED: VANCOMYCIN CONSULT ACTIVE PRN (02:30)
[2016-06-21] MEDS ORDERED: POLYETHYLENE (MIRALAX) 17 GM PACK PO PRN (02:30)
[2016-06-21] MEDS ORDERED: DICLOFENAC SOD 25 MG TABEC PO PRN ×3 (04:00→09:00)
[2016-06-21] MEDS ORDERED: VANCOMYCIN INJ 1,450 MG in SODIUM CHLORIDE 0.9% 500ML 500 ML IV SCH (04:00)
[2016-06-21] MEDS ORDERED: PIPERACILL/TAZOBAC IV 3.375 GM in DEXTROSE 5% 100ML 100 ML IV ONE (06:03)
[2016-06-21] MEDS ORDERED: PIPERACILL/TAZOBAC CONSULT ACTIVE PRN (06:15)
[2016-06-21 06:20] LABS: BASO % 0.2 %; BASO ABS # 0.03 K/uL (0-0.2); COMPLETE YES; EOS % 1.7 %; HEMATOCRIT 39.6 % (42-52); IG% 0.4 %; LYMPH % 14.7 %; LYMPH ABS # 2.14 K/uL (1.2-3.4); MEAN CELL VOLUME 86.3 fL (80-100); MEAN CORPUSCULAR HEMOGLOBIN 28.1 pg (25-34); MEAN CORPUSCULAR HGB CONC 32.6 g/dl (32-36); MEAN PLATELET VOLUME 8.7 fL (7.4-10.4); MONO % 11.3 %; NEUT % 71.7 %; PLATELET COUNT 231 K/uL (130-400); RED BLOOD COUNT 4.59 M/uL (4.7-6.1); WHITE BLOOD COUNT 14.54 K/uL (4.8-10.8)
[2016-06-21 06:34] LABS: PARTIAL THROMBOPLASTIN RATIO 1.4; PROTHROMBIN TIME (PATIENT) 10.3 SECONDS (9.0-12.0)
[2016-06-21 06:52] LABS: ESTIMATED AVERAGE GLUCOSE 146 mg/dl; HA1C FLAG Normal (Normal)
[2016-06-21 06:55] LABS: BUN/CREATININE RATIO 15.5 (10-20); CALCIUM 8.5 mg/dl (8.5-10.1); CREATININE 0.85 mg/dl (0.60-1.40); POTASSIUM 3.8 mmol/L (3.5-5.1)
[2016-06-21 06:59] LABS: PROSTATE SPECIFIC ANTIGEN 1.65 ng/ml (0.000-4.000)
[2016-06-21] MEDS ORDERED: PIPERACILL/TAZOBAC IV 4.5 GM in DEXTROSE 5% 100ML IV ONE (07:00)
--- NOTE | 2016-06-21 07:02 | DIAGNOSTIC IMAGING REPORT ---
CHEST 2 VIEWS ROUTINE CLINICAL HISTORY: Coughing black sputum. COMPARISON STUDY: Chest radiograph and chest CT March 12, 2016. FINDINGS: Mild lung hyperexpansion is noted. There is no pneumothorax or pleural effusion. Mild left basilar opacity favors atelectasis. Cardiomediastinal silhouette is stable. There is no evidence of pulmonary edema. No consolidation is identified to suggest pneumonia. IMPRESSION: No acute cardiopulmonary findings. Electronically signed by: Alberto Suarez M.D. 06/21/2016 7:01 AM Dictated Date/Time: 06/21/2016 7:00 AM
[2016-06-21] MEDS ORDERED: NURSING VERBAL MED ORDER ONE (07:15)
[2016-06-21] MEDS: MOMETASONE FUROATE 14 PUFF/1 INHALER INH SCH (08:21)
[2016-06-21] MEDS: DULOXETINE HCL 60 MG CAP PO SCH (08:24)
[2016-06-21] MEDS: CHOLECALCIFEROL 1000 INTER.UNIT TAB PO SCH (08:25)
[2016-06-21] MEDS: PROPRANOLOL HCL 80 MG TAB PO SCH ×2 (08:25→21:32)
[2016-06-21] MEDS: TAMSULOSIN HCL 0.4 MG CAP PO SCH (08:25)
[2016-06-21] MEDS: PANTOprazole SOD 40 MG TAB PO SCH ×2 (08:26→21:31)
[2016-06-21] MEDS: LOSARTAN POTASSIUM 50 MG TAB PO SCH (08:26)
[2016-06-21 08:43] LABS: URINE APPEARANCE CLEAR (CLEAR); URINE BILIRUBIN NEG (NEG); URINE COLOR DK YELLOW; URINE EPITHELIAL CELL AUTO 20-30 /lpf (0-5); URINE NITRITE NEG (NEG); URINE PH 6.5 (4.5-7.5); UROBILINOGEN NEG (NEG); ZZUR CULT IF INDIC CLEAN CATCH NO
[2016-06-21 08:45] LABS: MANUAL MICROSCOPIC REQUIRED? NO; REVIEW REQ? NO
[2016-06-21] MEDS: TIOTROPIUM BROMIDE 5 PUFF/90 MCG INH INH SCH (08:56)
[2016-06-21] MEDS ORDERED: VANCOMYCIN INJ 1,000 MG in SODIUM CHLORIDE 0.9% 250ML 250 ML IV SCH (09:00)
[2016-06-21] MEDS ORDERED: TIOTROPIUM BROMIDE 5 PUFF/90 MCG INH INH SCH (09:00)
--- NOTE | 2016-06-21 09:28 | Medical Consult ---
Consultation Date of Consultation: June 21, 2016. Attending Physician: Mary Carlson MD Reason for Consultation: left upper extremity cellulitis History of Present Illness Patient is a 61 year old male, s/p left TKA on 02/11/[address] Godoy. He presented to the ED on Monday June 20, 2016 with complaints of worsening left arm pain that started on Tuesday. He states that he did not have any injuries to his left arm. He is right hand dominant. He states that he got an insect bite over his right eye a few days earlier, he does not recall getting bit on his left arm. He states that he did pop the insect bite and white material was expressed. He has not done anything for his left arm. He states it's worse today than even yesterday. He was admitted for care. An ultrasound was done of his left upper extremity and was positive for a collection that was either a hematoma or developing phlegmon. He states it's extremely painful with touch. He denies any pain to left knee, states that has been doing very well. He was started on Vancomycin per the medicine team. He did eat breakfast this morning. No previous problems in left arm. No recent tattoos of left arm. Past Medical/Surgical History Medical Problems: (1) Asthma, Unspecified Status: Chronic (2) Cellulitis Status: Acute (3) Cellulitis of left upper arm Status: Acute (4) Contusion of multiple sites Status: Acute (5) Fall Status: Acute (6) Hypertension Nos Status: Chronic (7) Hypotension Status: Acute (8) Left knee pain Status: Acute (9) Occluded PICC line Status: Acute (10) Postoperative hematoma Status: Acute (11) Postoperative pain of left knee Status: Acute (12) Rheumatoid Arthritis Status: Chronic (13) Syncope Status: Acute Surgical Problems: (1) Carpal Tunnel Syndrome Status: Chronic Social History Problems: (1) Status post PICC central line placement Status: Acute Family History Hypertension Social History Smoking Status: Never Smoker Smokeless Tobacco Use: No Drug Use: none Marital Status: Housing Status: lives with family 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) Allergies Coded Allergies: Sulfa Antibiotics (Verified Allergy, Unknown, RASH / ITCHINESS, 02/22/16) Home Medications Active Reported Dilaudid (Hydromorphone Hcl) 4 Mg Tab 4 Mg PO Q4H PRN Hydromorphone HCl 2 Mg Tab 2 Mg PO Q4H PRN Flomax (Tamsulosin Hcl) 0.4 Mg Cap 0.4 Mg PO DAILY Proventil Hfa (Albuterol Sulfate) 108 Mcg/Act Aer 2 Puffs INH QID PRN Prilosec (Omeprazole) 20 Mg Cap 40 Mg PO DAILY Spiriva Handihaler (Tiotropium [place]) 30 Puff/540 Mcg Aerp 1 Cap INH DAILY Voltaren (Diclofenac Sodium) 50 Mg Tabec 50 Mg PO DAILY PRN Vitamin D3 (Cholecalciferol) 1,000 Unit Tab 2,000 Inter.unit PO DAILY Hydroxyzine HCl 10 Mg Tab 10 Mg PO BID PRN Asmanex [place] 120 Me (Mometasone Furoate (Inhalation) 220 Mcg/Inh Aer 1 Puff INH DAILY Inderal (Propranolol HCl) 80 Mg Tab 80 Mg PO BID Duloxetine HCl 60 Mg Cap 60 Mg PO QAM Cozaar (Losartan Potassium) 100 Mg Tab 100 Mg PO QAM Current Inpatient Medications Current Inpatient Medications Medications (Trade) Dose Ordered Sig/Tash Route Start Time Stop Time Status Last Admin Dose Admin Enoxaparin Sodium (Lovenox Inj) 40 mg Q24H SQ 06/20/16 23:30 07/20/16 23:29 06/20/16 23:44 40 MG Al Hydrox/Mg Hydrox/Simethicone (Maalox Max Susp) 15 ml Q4H PRN PO 06/20/16 23:30 07/20/16 23:29 Magnesium Hydroxide (Milk Of Magnesia Susp) 30 ml Q6H PRN PO 06/20/16 23:30 07/20/16 23:29 Ondansetron HCl (Zofran Inj) 4 mg Q6H PRN IV 06/20/16 23:30 07/20/16 23:29 Miscellaneous (Iv Fluids Completed) 1 ea PRN PRN N/A 06/20/16 23:45 06/20/17 23:44 Cholecalciferol (Vitamin D Tab) 2,000 inter.unit DAILY PO 06/21/16 09:00 07/21/16 08:59 06/21/16 08:25 2,000 INTER.UNIT Duloxetine HCl (Cymbalta Cap) 60 mg QAM PO 06/21/16 09:00 07/21/16 08:59 06/21/16 08:24 60 MG Hydromorphone HCl (Dilaudid Tab) 2 mg Q4H PRN PO 06/21/16 00:00 07/05/16 00:00 06/21/16 08:24 2 MG Hydromorphone HCl (Dilaudid Tab) 4 mg Q4H PRN PO 06/21/16 00:00 07/05/16 00:00 06/21/16 05:32 4 MG Hydroxyzine HCl (Vistaril Tab) 10 mg BID PRN PO 06/21/16 00:00 07/21/16 00:00 Losartan Potassium (coZAAR TAB) 100 mg QAM PO 06/21/16 09:00 07/21/16 08:59 06/21/16 08:26 100 MG Mometasone Furoate (Asmanex 220MCG Inh) 1 puff DAILY INH 06/21/16 09:00 07/21/16 08:59 06/21/16 08:21 1 PUFF Propranolol HCl (Inderal Tab) 80 mg BID PO 06/21/16 09:00 07/21/16 08:59 06/21/16 08:25 80 MG Tamsulosin HCl (Flomax Cap) 0.4 mg DAILY PO 06/21/16 09:00 07/21/16 08:59 06/21/16 08:25 0.4 MG Pantoprazole Sodium (Protonix Tab) 40 mg BID PO 06/21/16 09:00 07/21/16 08:59 06/21/16 08:26 40 MG Polyethylene (Miralax Powder Packet) 17 gm DAILY PRN PO 06/21/16 02:30 07/20/16 23:29 Vancomycin HCl 1 ea 1 ea UD PRN N/A 06/21/16 02:30 07/21/16 02:29 Piperacillin Sod/ Tazobactam Sod/ Dextrose (Zosyn Iv/D5 100ml) 120 ml @ 30 mls/hr Q8H IV 06/21/16 12:00 07/01/16 11:59 Piperacillin Sod/ Tazobactam Sod (Consult) 1 ea UD PRN N/A 06/21/16 06:15 07/21/16 06:14 Diclofenac Sodium 50 mg 50 mg TID PRN PO 06/21/16 09:00 07/21/16 08:59 Vancomycin HCl/ Sodium Chloride (Vancomycin Inj/ Nss 500ml) 533 ml @ 200 mls/hr Q12@1000,2200 IV 06/21/16 10:00 06/30/16 09:59 Tiotropium [place] (Spiriva Handihaler Inhaler) 1 puff DAILY INH 06/21/16 09:00 07/21/16 08:59 06/21/16 08:56 1 PUFF Review of Systems Constitutional: No chills, No fever, No sweats Eyes: No diplopia, No redness, No worsening of vision ENT: No hearing loss, No sore throat Abdomen: No nausea, No pain, No vomiting Musculoskeletal: + joint pain (left arm), + swelling (left arm) Hematologic / Lymphatic: No abnormal bleeding/bruising, No clotting problems Integumentary: No itch, No rash Physical Exam Date Time Temp Pulse Resp B/P Pulse Ox O2 Delivery O2 Flow Rate FiO2 06/21/16 07:38 37.4 102 20 159/91 90 Room Air 06/21/16 05:42 37.6 98 149/91 92 06/21/16 01:28 37.3 99 20 156/88 93 Room Air 06/21/16 00:16 96 19 166/91 95 06/20/16 22:42 96 20 145/97 92 Room Air 06/20/16 21:02 90 18 178/105 94 Room Air 06/20/16 20:17 85 20 94 Room Air 06/20/16 18:12 36.5 88 20 176/107 95 Room Air General Appearance: WD/WN, no apparent distress Extremities/Musculoskelatal: no calf tenderness (bilateral lower extremities), normal capillary refill, no pedal edema, + pertinent finding (left upper extremity: Painless ROM left shoulder, no erthema, effusion left shoulder. Left upper arm with erythema, edema, and warmth left medial bicep area, extends over medial epicondyle of elbow. Skin intact, subacute healing of small wound anteriorly but no surrounding erythema, warmth, edema in this area. Area is indurated. Tolerates full pronation and supination left forearm without pain. Edema extends into forearm and left hand dorsally. Full extension and flexion of left wrist and left hand. Nontender with palpation of left forearm, wrist, and elbow except around the medial epicondyle. Tolerates ROM of left elbow flexion to 90 extension to 10 degrees. Nontender anteriorly and laterally left arm. Erythematous area exquisitely tender to palpation. Left knee surgical incision healed. Mild effusion, no erythema, warmth, ecchymossi. NT to palpation, no distal edema, strength 5/5. ROM 0-115 today without pain. ) Skin: warm/dry, no rash Laboratory Results Last 24 Hours Test 06/20/16 18:50 06/21/16 05:57 06/21/16 07:52 White Blood Count 13.17 K/uL 14.54 K/uL Red Blood Count 5.04 M/uL 4.59 M/uL Hemoglobin 14.4 g/dL 12.9 g/dL Hematocrit 43.4 % 39.6 % Mean Corpuscular Volume 86.1 fL 86.3 fL Mean Corpuscular Hemoglobin 28.6 pg 28.1 pg Mean Corpuscular Hemoglobin Concent 33.2 g/dl 32.6 g/dl Platelet Count 245 K/uL 231 K/uL Mean Platelet Volume 9.0 fL 8.7 fL Neutrophils (%) (Auto) 73.8 % 71.7 % Lymphocytes (%) (Auto) 11.9 % 14.7 % Monocytes (%) (Auto) 11.1 % 11.3 % Eosinophils (%) (Auto) 2.4 % 1.7 % Basophils (%) (Auto) 0.3 % 0.2 % Neutrophils # (Auto) 9.72 K/uL 10.41 K/uL Lymphocytes # (Auto) 1.57 K/uL 2.14 K/uL Monocytes # (Auto) 1.46 K/uL 1.65 K/uL Eosinophils # (Auto) 0.32 K/uL 0.25 K/uL Basophils # (Auto) 0.04 K/uL 0.03 K/uL RDW Standard Deviation 42.8 fL 43.1 fL RDW Coefficient of Variation 13.5 % 13.5 % Immature Granulocyte % (Auto) 0.5 % 0.4 % Immature Granulocyte # (Auto) 0.06 K/uL 0.06 K/uL Sodium Level 137 mmol/L 136 mmol/L Potassium Level 4.0 mmol/L 3.8 mmol/L Chloride Level 99 mmol/L 101 mmol/L Carbon Dioxide Level 34 mmol/L 29 mmol/L Anion Gap 4.0 mmol/L 6.0 mmol/L Blood Urea Nitrogen 12 mg/dl 13 mg/dl Creatinine 0.97 mg/dl 0.85 mg/dl Est Creatinine Clear Calc Drug Dose 106.9 ml/min 122.0 ml/min Estimated GFR () 97.9 109.8 Estimated GFR (Non- 84.5 94.7 BUN/Creatinine Ratio 12.1 15.5 Random Glucose 134 mg/dl 141 mg/dl Calcium Level 9.1 mg/dl 8.5 mg/dl Total Bilirubin 1.0 mg/dl Direct Bilirubin 0.2 mg/dl Aspartate Amino Transf (AST/SGOT) 29 U/L Alanine Aminotransferase (ALT/SGPT) 40 U/L Alkaline Phosphatase 170 U/L Total Creatine Kinase 249 U/L Total Protein 8.5 gm/dl Albumin 3.6 gm/dl Prothrombin Time 10.3 SECONDS Prothromb Time International Ratio 1.0 Activated Partial Thromboplast Time 36.8 SECONDS Partial Thromboplastin Ratio 1.4 Estimated Average Glucose 146 mg/dl Hemoglobin A1c 6.7 % Prostate Specific Antigen 1.650 ng/ml Thyroid Stimulating Hormone (TSH) 0.662 uIu/ml Urine Color DK YELLOW Urine Appearance CLEAR Urine pH 6.5 Urine Specific [place] 1.030 Urine Protein 1+ Urine Glucose (UA) 1+ Urine Ketones TRACE Urine Occult Blood NEG Urine Nitrite NEG Urine Bilirubin NEG Urine Urobilinogen NEG Urine Leukocyte Esterase NEG Urine WBC (Auto) 1-5 /hpf Urine RBC (Auto) 0-4 /hpf Urine Hyaline Casts (Auto) 1-5 /lpf Urine Epithelial Cells (Auto) 20-30 /lpf Urine Bacteria (Auto) NEG ULTRASOUND LEFT VENOUS DOPPLER UPR EXT UNIL CLINICAL HISTORY: Left arm swelling and redness COMPARISON STUDY: No previous studies for comparison. FINDINGS: No intraluminal thrombus was visualized. The internal jugular, subclavian, axillary, cephalic, brachial, basilic, radial, and ulnar veins were patent. There is minor stranding within the left cephalic vein at the level of the antecubital fossa. This is felt to be chronic. With thin the left mid medial upper arm, there is a heterogeneous soft tissue mass measuring 6.2 x 15.4 x 3.5 cm. This demonstrates only minimal blood flow. The lesion is nonspecific, but may represent an intramuscular hemorrhage or developing phlegmon. Clinical and imaging follow-up is recommended. IMPRESSION: 1. Fibrin stranding within the left cephalic vein, likely chronic 2. No evidence of acute left upper extremity DVT 3. 6.2 x 15.4 x 3.5 cm heterogeneous soft tissue mass within the left mid medial upper arm. Likely diagnostic considerations include intramuscular hemorrhage, or developing phlegmon. A neoplasm is felt to be statistically less likely. Clinical and imaging follow-up is recommended. Assessment & Plan Assessment: 1. Left upper extremity cellulitis 2. S/p Left TKA 02/11/[address] Godoy - no evidence of infection Plan: Recommend continue IV antibiotics as ordered per medicine. Ultrasound reviewed, may potentially need X-rays/MRI of left upper extremity to further evaluate. Will discuss findings with Dr. Godoy and will determine definitive treatment plan after his evaluation. Recommend elevation/ice if tolerated left arm. Encouraged ROM of left upper extremity. Patient did have breakfast this morning. If I&D indicated could be as early as Tuesday AM. Patient aware of plan.
--- NOTE | 2016-06-21 09:31 | Pharmacy Progress Note ---
Pharmacy Antibiotic Consult Date of Service: June 21, 2016. Pharmacy Dosing Scope Pharmacy is consulted to initiate vancomycin and Zosyn IV dosing therapy, order appropriate labs and adjust drug dose/frequency. Subjective The patient is a 61 year old male admitted on June 21, 2016 at 03:57 with cellulitis L upper arm and around R eye. Hx MRSA cellulitis in hand 10 months ago. Known to us from prior admission. Objective Height (Feet): 5 Height (Inches): 11.00 Weight (Kilograms): 120.500 Lab Results (24hrs): Test 06/20/16 18:50 06/21/16 05:57 06/21/16 07:52 06/21/16 09:06 White Blood Count 13.17 K/uL (4.8-10.8) 14.54 K/uL (4.8-10.8) Red Blood Count 5.04 M/uL (4.7-6.1) 4.59 M/uL (4.7-6.1) Hemoglobin 14.4 g/dL (14.0-18.0) 12.9 g/dL (14.0-18.0) Hematocrit 43.4 % (42-52) 39.6 % (42-52) Mean Corpuscular Volume 86.1 fL (80-100) 86.3 fL (80-100) Mean Corpuscular Hemoglobin 28.6 pg (25-34) 28.1 pg (25-34) Mean Corpuscular Hemoglobin Concent 33.2 g/dl (32-36) 32.6 g/dl (32-36) Platelet Count 245 K/uL (130-400) 231 K/uL (130-400) Mean Platelet Volume 9.0 fL (7.4-10.4) 8.7 fL (7.4-10.4) Neutrophils (%) (Auto) 73.8 % 71.7 % Lymphocytes (%) (Auto) 11.9 % 14.7 % Monocytes (%) (Auto) 11.1 % 11.3 % Eosinophils (%) (Auto) 2.4 % 1.7 % Basophils (%) (Auto) 0.3 % 0.2 % Neutrophils # (Auto) 9.72 K/uL (1.4-6.5) 10.41 K/uL (1.4-6.5) Lymphocytes # (Auto) 1.57 K/uL (1.2-3.4) 2.14 K/uL (1.2-3.4) Monocytes # (Auto) 1.46 K/uL (0.11-0.59) 1.65 K/uL (0.11-0.59) Eosinophils # (Auto) 0.32 K/uL (0-0.5) 0.25 K/uL (0-0.5) Basophils # (Auto) 0.04 K/uL (0-0.2) 0.03 K/uL (0-0.2) RDW Standard Deviation 42.8 fL (36.4-46.3) 43.1 fL (36.4-46.3) RDW Coefficient of Variation 13.5 % (11.5-14.5) 13.5 % (11.5-14.5) Immature Granulocyte % (Auto) 0.5 % 0.4 % Immature Granulocyte # (Auto) 0.06 K/uL (0.00-0.02) 0.06 K/uL (0.00-0.02) Sodium Level 137 mmol/L (136-145) 136 mmol/L (136-145) Potassium Level 4.0 mmol/L (3.5-5.1) 3.8 mmol/L (3.5-5.1) Chloride Level 99 mmol/L (98-107) 101 mmol/L (98-107) Carbon Dioxide Level 34 mmol/L (21-32) 29 mmol/L (21-32) Anion Gap 4.0 mmol/L (3-11) 6.0 mmol/L (3-11) Blood Urea Nitrogen 12 mg/dl (7-18) 13 mg/dl (7-18) Creatinine 0.97 mg/dl (0.60-1.40) 0.85 mg/dl (0.60-1.40) Est Creatinine Clear Calc Drug Dose 106.9 ml/min 122.0 ml/min Estimated GFR () 97.9 109.8 Estimated GFR (Non- 84.5 94.7 BUN/Creatinine Ratio 12.1 (10-20) 15.5 (10-20) Random Glucose 134 mg/dl (70-99) 141 mg/dl (70-99) Calcium Level 9.1 mg/dl (8.5-10.1) 8.5 mg/dl (8.5-10.1) Total Bilirubin 1.0 mg/dl (0.2-1) Direct Bilirubin 0.2 mg/dl (0-0.2) Aspartate Amino Transf (AST/SGOT) 29 U/L (15-37) Alanine Aminotransferase (ALT/SGPT) 40 U/L (12-78) Alkaline Phosphatase 170 U/L (45-117) Total Creatine Kinase 249 U/L (39-308) Total Protein 8.5 gm/dl (6.4-8.2) Albumin 3.6 gm/dl (3.4-5.0) Prothrombin Time 10.3 SECONDS (9.0-12.0) Prothromb Time International Ratio 1.0 (0.9-1.1) Activated Partial Thromboplast Time 36.8 SECONDS (21.0-31.0) Partial Thromboplastin Ratio 1.4 Estimated Average Glucose 146 mg/dl Hemoglobin A1c 6.7 % (4.5-5.6) Prostate Specific Antigen 1.650 ng/ml (0.000-4.000) Thyroid Stimulating Hormone (TSH) 0.662 uIu/ml (0.300-4.500) Urine Color DK YELLOW Urine Appearance CLEAR (CLEAR) Urine pH 6.5 (4.5-7.5) Urine Specific [place] 1.030 (1.000-1.030) Urine Protein 1+ (NEG) Urine Glucose (UA) 1+ (NEG) Urine Ketones TRACE (NEG) Urine Occult Blood NEG (NEG) Urine Nitrite NEG (NEG) Urine Bilirubin NEG (NEG) Urine Urobilinogen NEG (NEG) Urine Leukocyte Esterase NEG (NEG) Urine WBC (Auto) 1-5 /hpf (0-5) Urine RBC (Auto) 0-4 /hpf (0-4) Urine Hyaline Casts (Auto) 1-5 /lpf (0-5) Urine Epithelial Cells (Auto) 20-30 /lpf (0-5) Urine Bacteria (Auto) NEG (NEG) Micro Results: 06/20 blood x2 pending Recent Pertinent Medications Item Value Date Time Piperacillin Sod/ 120 ml @ 30 mls/hr 06/21/16 1200 Tazobactam Sod Q8H/IV 4.5 gm/Dextrose Vancomycin HCl 533 ml @ 200 mls/hr 06/21/16 1000 1650 mg/Sodium Q12@1000,2200/IV Chloride Piperacillin Sod/ 120 ml @ 200 mls/hr 06/21/16 0700 Tazobactam Sod NOW ONCE/IV 06/21/16 0643 4.5 gm/Dextrose Vancomycin HCl 529 ml @ 200 mls/hr 06/21/16 0400 1450 mg/Sodium TODAY@0400/IV 06/21/16 0347 Chloride Vancomycin HCl 1 gm 06/20/16 1821 (Vancomycin 1gm/ NOW STAT/IV 06/20/16 1943 270ml Nss) Assessment & Plan Modified Loading dose: vancomycin 1 Gm in ED, then 1450 mg IV X 1 dose (~20 mg/ kg total) then: will start dose used in prior admission, which was therapeutic. vancomycin 1650 mg IV every 12 hours. Goal peak level estimate: between 25-40 mcg/mL. Goal trough level estimate: between 15-20 mcg/mL. Trough has been ordered for: 06/22 before 1000 dose. Zosyn 4.5 Gm IV over 30 minutes x1, then 4.5 Gm (infused over 4 hr) every 8 hr, for BMI greater than 35 kg/m2 and CrCl greater than 20 ml/min Pharmacy will continue to follow and will adjust dose/frequency as necessary. Thank you
[2016-06-21] MEDS: VANCOMYCIN INJ 1,650 MG in SODIUM CHLORIDE 0.9% 500ML 500 ML IV SCH ×2 (10:00→21:33)
--- NOTE | 2016-06-21 10:52 | PROGRESS NOTE ---
DATE: 06/21/2016 The patient is seen in conjunction with Faina King PA-C; for further details, refer to her dictation, I am in agreement with the plan. Mr. Reed is a 61-year-old male status post left total knee arthroplasty. He developed swelling about his right eye recently and drained some purulence from it. Beginning Tuesday, he developed progressive swelling of his left arm area medially. He came to the ER last night and was admitted. He had breakfast and he received Lovenox 40 mg at 11:30 p.m. last night. He denies fever, chills or sweats; however, when I see him this morning, he is sweating profusely. The left arm pain, swelling and redness have progressively gotten worse. He is on vancomycin and piperacillin/tazobactam. PHYSICAL EXAMINATION: Axillary, musculocutaneous, median, radial and ulnar motor and sensory functions are intact. There is mild swelling of the forearm and hand. Radial pulse is 2+. He has full movement of the fingers, wrist and forearm. Elbow motion is 0/20/90. He has 5/5 strength. There is no pain with passive movement within those parameters. He has full movement of the shoulder. There is intense erythema, swelling and tenseness noted on the anteromedial arm. This has been marked out previously. It does not go below the antecubital fossa. The elbow, forearm and hand are nontender. There is tenseness anteromedially and distally. He also has some scarring along some of his veins noted on the left forearm. He also has an erythematous resolving pustule over the right eye. Ultrasound has been done and shows a 6 x 15 x 3 soft tissue mass in the left medial arm. IMPRESSION: Left arm abscess, history of methicillin-resistant Staphylococcus aureus, left total knee arthroplasty. PLAN: I think that he has an abscess likely related to MRSA. There is a small resolving skin break anterior central arm which may have been the means of ingress. He has multiple areas of skin abrasions throughout his body including his arms and legs. There is a cat scratch on his right leg. I would recommend surgical treatment consisting of an I\T\D along with antibiotic. I agree with the antibiotics for now and I think that this needs to be treated surgically. Unfortunately, he has eaten and has also had Lovenox. We will need to coordinate his care in light of those parameters. I would also like to prevent any secondary spread to his left total knee arthroplasty. I held his Lovenox. I made him n.p.o. I will coordinate care with anesthesia, and if possible, try to do surgery later today and at the latest tomorrow. He denied use of any intravenous drugs. The patient, in my experiences, had a high rate of consumption of narcotic analgesics, receiving narcotic medications from multiple providers including myself and [facility] to [facility]. He denies any heroin use. He is afebrile today. His vital signs are stable. He is slightly tachycardic. His white count is elevated at 14, hematocrit is 40. His PRP is noted. Blood sugars are slightly high. UA noted. Given the size and extent of this lesion, I do not think that a bedside I\T\D is going to be possible. Additionally, given its location on the medial arm and associating with the neurovascular structures, I am reluctant to stick and insert a needle to aspirate blindly.
[2016-06-21] MEDS ORDERED: LIDOCAINE/EPINEPHRINE 1% 20 ML VIAL ONE (11:40)
[2016-06-21] MEDS ORDERED: BUPIVACAINE/EPINEPHRINE 0.5% MPF 1:200,000 30 ML VIAL ONE (11:40)
[2016-06-21] MEDS ORDERED: POVIDONE-IODINE OP SOLN 30 ML BTL ONE (11:41)
[2016-06-21] MEDS ORDERED: BACITRACIN 50000 UNIT VIAL ONE (11:41)
[2016-06-21] MEDS ORDERED: GLYCOPYRROLATE INJ 0.2 MG/ML VIAL ONE (11:47)
[2016-06-21] MEDS ORDERED: LIDOCAINE HCL 2% 2 ML VIAL (20MG/ML) ONE (11:47)
[2016-06-21] MEDS ORDERED: ROCURONIUM BROMIDE 10 MG/ML 5 ML VIAL ONE (11:47)
[2016-06-21] MEDS ORDERED: PROPOFOL IV EMULSION 10 MG/ML 20 ML VIAL IV ONE (11:47)
[2016-06-21] MEDS ORDERED: FENTANYL CITRATE INJ 50 MCG/1 ML 2 ML VIAL ONE (11:47)
[2016-06-21] MEDS ORDERED: MIDAZOLAM HCL 1 MG/ML 2ML VIAL ONE (11:47)
[2016-06-21] MEDS ORDERED: ONDANSETRON INJ 2 MG/ML 2 ML VIAL ONE (11:47)
[2016-06-21] MEDS ORDERED: SUCCINYLCHOLINE CHLORIDE 20 MG/ML 10 ML VIAL IV ONE (11:47)
[2016-06-21] MEDS: PIPERACILL/TAZOBAC IV 4.5 GM in DEXTROSE 5% 100ML IV SCH ×2 (12:00→20:09)
[2016-06-21] MEDS ORDERED: PIPERACILL/TAZOBAC IV 3.375 GM in DEXTROSE 5% 100ML 100 ML IV SCH (12:00)
[2016-06-21] MEDS ORDERED: HYDROmorphone INJ 1 MG/ML SYR IV PRN (12:30)
[2016-06-21] MEDS ORDERED: FENTANYL CITRATE INJ 50 MCG/1 ML 2 ML VIAL IV PRN (12:30)
[2016-06-21] MEDS ORDERED: ONDANSETRON INJ 2 MG/ML 2 ML VIAL IV PRN (12:30)
[2016-06-21] MEDS ORDERED: EpHEDrine SULFATE INJ 50 MG/ML AMP IV PRN (12:30)
[2016-06-21] MEDS ORDERED: ATROPINE SULFATE 0.1 MG/ML 5ML SYR IV PRN (12:30)
[2016-06-21] MEDS ORDERED: VASOPRESSIN 20 UNIT/ML VIAL ONE (12:47)
--- NOTE | 2016-06-21 13:04 | [facility] Post Operative Brief Note ---
Immediate Operative Summary Operative Date June 21, 2016. Pre-Operative Diagnosis Left arm abscess Post-Operative Diagnosis Left arm abscess, intramuscular Procedure(s) Performed Incision, Drainage, Debridement of Left Arm Abscess Surgeon Dr. George Godoy Crab Catcher Surgeon(s) Faina King PA-C Estimated Blood Loss 10mL Findings intramuscular abcess Specimens Microbiology: 1. Left upper extremity abscess for culture, sent at 1238. Drains 1 Anesthesia General Complication(s) None Disposition Recovery Room / PACU
--- NOTE | 2016-06-21 13:24 | PROGRESS NOTE ---
DATE: 06/21/2016 HISTORY OF PRESENT ILLNESS: The patient was seen and examined earlier today, preoperatively. He offered no complaints referable to his left knee. He had an intact extensor mechanism and can do a straight leg raise. There is no erythema or warmth. He had at most a trace left knee effusion. There is no tenderness to palpation or is there any erythema or induration. He had range of motion from full extension to about 110 degrees of flexion without any difficulty. I do not think there is any pathological process such as an infection involving the left knee at this time.
--- NOTE | 2016-06-21 13:31 | [facility] Operative Report ---
Operative Report Operative Date June 21, 2016. Pre-Operative Diagnosis Left arm abscess Post-Operative Diagnosis left arm abscess Procedure(s) Performed Incision, drainage, debridement left arm abscess Surgeon Dr. George Godoy Alcohol And Drug Counselor Surgeon(s) Faina King PA-C Estimated Blood Loss 10mL Findings left arm abscess Specimens Microbiology: 1. Left upper extremity abscess for culture, sent at 1238. Drains 1 Anesthesia General Complication(s) None Disposition Recovery Room / PACU (stable) Indications Patient presented to the ED with complaints of left arm pain x 2 days, progressively worsening. Admitted for cellulitis possible abscess. Ultrasound performed, found to have abscess of left arm. Patient seen in consultation by Dr. Godoy, recommended incision and drainage left arm. He agreed to proceed. Risks/complications discussed, informed consent obtained. Description of Procedure Patient was taken to the operating room, given general anesthesia. He was on IV Vanco and Zosyn which was continued perioperatively. Time out performed, prepped and draped in routine sterile fashion. I was present the entire case, please see Dr. Godoy's operative report for further detail. Patient was awakened and taken to the recovery room in stable condition. I attest to the content of the Intraoperative Record and any orders documented therein. Any exceptions are noted below.
[2016-06-21] MEDS ORDERED: MAGNESIUM HYDROXIDE SUSP 30 ML UDC PO PRN (13:45)
[2016-06-21] MEDS ORDERED: BISACODYL 10 MG SUPP PR PRN (13:45)
--- NOTE | 2016-06-21 14:10 | Anesthesiology Progress Note ---
Anesthesia Post Op Note Date & Time June 21, 2016 at 14:10 Vital Signs Pain Intensity: 1 Vital Signs Past 12 Hours Date Time Temp Pulse Resp B/P Pulse Ox O2 Delivery O2 Flow Rate FiO2 06/21/16 14:05 36.2 82 20 102/65 95 Nasal Cannula 4 06/21/16 13:55 81 20 95/70 94 Nasal Cannula 4 06/21/16 13:45 80 16 108/73 96 Mask 10 06/21/16 13:35 74 16 92/62 93 Mask 15 06/21/16 13:27 36 72 14 98/63 92 Mask 15 06/21/16 11:26 36.8 78 16 137/93 96 Room Air 06/21/16 10:33 151/89 06/21/16 08:00 Nasal Cannula 2.0 06/21/16 07:38 37.4 102 20 159/91 90 Room Air 06/21/16 05:42 37.6 98 149/91 92 Notes Mental Status: alert / awake / arousable, participated in evaluation Pt Amnestic to Procedure: Yes Nausea / Vomiting: adequately controlled Pain: adequately controlled Airway Patency, RR, SpO2: stable & adequate BP & HR: stable & adequate Hydration State: stable & adequate Anesthetic Complications: no major complications apparent
--- NOTE | 2016-06-21 14:26 | OPERATIVE REPORT ---
DATE OF OPERATION: 06/21/2016 PREOPERATIVE DIAGNOSIS: Left arm abscess. POSTOPERATIVE DIAGNOSIS: Left arm intramuscular abscess. SURGEON: Dr. Godoy. ELECTRICAL DISCHARGE MACHINE OPERATOR: Faina King PA-C. No resident or fellow available. ANESTHESIA: General. INDICATION FOR PROCEDURE: The patient is a 61-year-old male who has a 3- to 4-day history of left arm pain and swelling. He reports progressive swelling, redness and pain. He was admitted to the hospital last evening, placed on intravenous antibiotics. An ultrasound done yesterday showed a large abscess in the left anteromedial arm. I became aware of the patient's presence in the hospital this morning through consultation and I evaluated him this morning. He has an elevated white blood cell count. He has severe pain in his mid to lower left arm and firmness and fluctuance which could be consistent with an abscess. This is reflected on an ultrasound done previously. He is afebrile. He was not n.p.o. and had a small amount of food for breakfast. I think that this case is a surgical emergency or urgency and I recommend operative intervention. I discussed this with Dr. Mclain who is in agreement. The patient did receive a dose of Lovenox 40 mg subcu preoperatively 11:30 p.m. the night before. I spoke with Dr. Del Real based upon his body habitus, the dose of medication, the length of time, and his body weight, that this should have minimal impact upon bleeding at this time. Just in case, we have typed and crossed for 2 units and have protamine available as well as tranexamic acid. I have discussed the case with the medical voucher clerk. He additionally had an abscess above his right eye which he popped himself. He is on vancomycin and piperacillin/tazobactam. He has a history of MRSA. Four months ago, he had left knee replacement. PROCEDURE IN DETAIL: Informed consent was obtained. The patient identified as Zan Reed. He identified the operative site as the left arm, I marked it with my initials. A preop surgical timeout was performed. A preop dose of IV antibiotics was given. He was taken to the operating room and positioned supine on the operating room table. A general anesthetic was administered. The left upper extremity was prepped and draped in the usual sterile fashion from the fingertips to the shoulder. The left arm was swollen. It was most notable for tenseness and fluctuance in the distal portion of the arm. DVT prophylaxis is not indicated. He was receiving intravenous vancomycin prior to the start of the procedure. The left arm was placed on a hand table. No tourniquet was utilized. Prior to surgery, the patient was taken to the ultrasound suite where ultrasound guidance was utilized to localize the proximal, distal, medial, and lateral extent of the abscess which was then marked on the skin which corresponded to an area just anteromedial of midline. The abscess was longitudinally oriented. It was fairly solid in appearance and Dr. Montaño expressed a thought that this may be more solid and inflammatory in that there was some fluid but not large areas of fluid. The lesion was not pulsatile and the brachial artery was noted to be posterior and medial to the lesion. I made an initial 5 cm incision on the anterior aspect of the arm longitudinally. Electrocautery was utilized down to subcutaneous tissues. The bicipital fascia was identified and opened in line with the incision. At this point, the biceps looked normal. There was nothing really visibly abnormal at all. Bleeding was controlled with electrocautery. I took my finger and bluntly went beneath the bicipital fascia distally and I entered a cavity from which approximately 10-15 mL of yellow pus was expressed. A culture was obtained. I entered the cavity with my finger. I then extended the incision distally to the distal extent of this cavity and the muscle was already bluntly open to that level. Some inflammatory fibrous rind was debrided with a rongeur. I then explored proximally and found that the lesion went to the proximal extent that was marked with the ultrasound. I extended the incision proximally, dividing the skin and fascia with electrocautery. Bleeding was controlled with electrocautery. The biceps muscle was easily bluntly split proximally and the lesion was just below its surface. No major neurovascular structures were encountered. The biceps muscle appeared to be healthy, had good color, generally good contractility and consistency, it was bleeding. This was then irrigated with 1 liter of saline containing antibiotic pulse lavage. This was followed by 500 mL of normal saline containing Betadine lavage which was left in place for 3-5 minutes. I palpated around and found no evidence of subcutaneous, intramuscular, or other evidence of fluid collections throughout the anterior compartment of the arm. The fascia was left open. A medium Hemovac drain was inserted deep and brought out distally in line with the incision. The skin was then closed with [id number] and simple stitches, leaving 1-2 cm in between stitches for drainage if necessary. A soft sterile dressing was applied along with a full length Mihai wrap. Prior to this, a mixture of 1% lidocaine and 0.5% Marcaine both containing epinephrine were injected into the skin. The patient was then awakened from anesthesia without difficulty, taken to recovery room in stable condition. There were no specimens except for the cultures. Counts were correct at the end of the case. Blood loss was approximately 10 mL. At the conclusion of the operation, there was no one available to speak to. The patient will be admitted to the hospital. He will continue on his antibiotics. Cultures will be followed up. I attest to the content of the Intraoperative Record and any orders documented therein. Any exceptions are noted below. SHANAE
--- NOTE | 2016-06-21 16:55 | Orthopedic Progress Note ---
Orthopedic Progress Note Date of Service June 21, 2016. Subjective Reports: feeling well, Denies: SOB, chest pain, complaints, nausea / vomiting Additional Notes: States feeling better since surgery. Less pain in arm. Objective N/V intact, capillary refill less than 2 sec., dressing C/D/I, A&O x3 Date Time Temp Pulse Resp B/P Pulse Ox O2 Delivery O2 Flow Rate FiO2 06/21/16 15:15 36.7 82 18 107/70 98 Room Air 06/21/16 14:23 36.7 82 20 95/65 94 06/21/16 14:05 36.2 82 20 102/65 95 Nasal Cannula 4 06/21/16 13:55 81 20 95/70 94 Nasal Cannula 4 06/21/16 13:45 80 16 108/73 96 Mask 10 06/21/16 13:35 74 16 92/62 93 Mask 15 06/21/16 13:27 36 72 14 98/63 92 Mask 15 06/21/16 11:26 36.8 78 16 137/93 96 Room Air 06/21/16 10:33 151/89 06/21/16 08:00 Nasal Cannula 2.0 06/21/16 07:38 37.4 102 20 159/91 90 Room Air 06/21/16 05:42 37.6 98 149/91 92 06/21/16 01:28 37.3 99 20 156/88 93 Room Air 06/21/16 00:16 96 19 166/91 95 06/20/16 22:42 96 20 145/97 92 Room Air 06/20/16 21:02 90 18 178/105 94 Room Air 06/20/16 20:17 85 20 94 Room Air 06/20/16 18:12 36.5 88 20 176/107 95 Room Air Laboratory Results 24 Hours: Test 06/20/16 18:50 06/21/16 05:57 White Blood Count 13.17 K/uL 14.54 K/uL Red Blood Count 5.04 M/uL 4.59 M/uL Hemoglobin 14.4 g/dL 12.9 g/dL Hematocrit 43.4 % 39.6 % Mean Corpuscular Volume 86.1 fL 86.3 fL Mean Corpuscular Hemoglobin 28.6 pg 28.1 pg Mean Corpuscular Hemoglobin Concent 33.2 g/dl 32.6 g/dl Platelet Count 245 K/uL 231 K/uL Mean Platelet Volume 9.0 fL 8.7 fL Neutrophils (%) (Auto) 73.8 % 71.7 % Lymphocytes (%) (Auto) 11.9 % 14.7 % Monocytes (%) (Auto) 11.1 % 11.3 % Eosinophils (%) (Auto) 2.4 % 1.7 % Basophils (%) (Auto) 0.3 % 0.2 % Neutrophils # (Auto) 9.72 K/uL 10.41 K/uL Lymphocytes # (Auto) 1.57 K/uL 2.14 K/uL Monocytes # (Auto) 1.46 K/uL 1.65 K/uL Eosinophils # (Auto) 0.32 K/uL 0.25 K/uL Basophils # (Auto) 0.04 K/uL 0.03 K/uL Prothromb Time International Ratio 1.0 Prothrombin Time 10.3 SECONDS Assessment & Plan Assessment: s/p I & D left arm abscess today Plan: Left arm repositioned in sling. Regular diet ordered. Pain medicine as prescribed by medicine. Okay to resume Lovenox at 2 am 06/22/16 OOB as tolerated Continue Sling left arm for comfort; left arm dressings Hemovac functioning Ice to left arm as needed Elevate left arm as needed for pain/swelling Will discuss findings with Dr. Godoy and rechchencho in AM.
--- NOTE | 2016-06-21 17:41 | Family Medicine Progress Note ---
Progress Note Date of Service June 21, 2016. Subjective Pt evaluation today including: conversation w/ patient, physical exam, chart review, lab review Pain: left sided arm pain PO Intake: good Voiding: no voiding problems 61-year-old male with a past medical history of bilateral neuropathy, chronic back pain, hepatitis C, osteoarthritis presented with complaints of 2 day history of rapidly progressive cellulitis around his left eye and left medial aspect of upper arm. He said he developed a swelling about his right eye which he popped resulting in pus like drainage. Meanwhile he also developed left-sided arm swelling about the same time but can' t recollect if he had any insect bites or trauma to the area. Denies any fevers or chills. Denies any painful eye movements, diplopia, blurriness of vision Constitutional: No chills, No fever Eyes: + redness (about right eye), No worsening of vision ENT: No hearing loss Respiratory: No cough, No sputum Cardiovascular: No chest pain Breast: No breast lump Abdomen: No nausea, No pain, No vomiting Musculoskeletal: + problem reported (left upper arm swelling on the medial aspect) Male : No dysuria Neurologic: No memory loss Psychiatric: No depression symptoms Heme: No abnormal bleeding/bruising Medications Current Inpatient Medications Medications (Trade) Dose Ordered Sig/Tash Route Start Time Stop Time Status Last Admin Dose Admin Miscellaneous (Iv Fluids Completed) 1 ea PRN PRN N/A 06/20/16 23:45 06/20/17 23:44 Cholecalciferol (Vitamin D Tab) 2,000 inter.unit DAILY PO 06/21/16 09:00 07/21/16 08:59 06/21/16 08:25 2,000 INTER.UNIT Duloxetine HCl (Cymbalta Cap) 60 mg QAM PO 06/21/16 09:00 07/21/16 08:59 06/21/16 08:24 60 MG Hydromorphone HCl (Dilaudid Tab) 2 mg Q4H PRN PO 06/21/16 00:00 07/05/16 00:00 06/21/16 08:24 2 MG Hydromorphone HCl (Dilaudid Tab) 4 mg Q4H PRN PO 06/21/16 00:00 07/05/16 00:00 06/21/16 05:32 4 MG Hydroxyzine HCl (Vistaril Tab) 10 mg BID PRN PO 06/21/16 00:00 07/21/16 00:00 Losartan Potassium (coZAAR TAB) 100 mg QAM PO 06/21/16 09:00 07/21/16 08:59 06/21/16 08:26 100 MG Mometasone Furoate (Asmanex 220MCG Inh) 1 puff DAILY INH 06/21/16 09:00 07/21/16 08:59 06/21/16 08:21 1 PUFF Propranolol HCl (Inderal Tab) 80 mg BID PO 06/21/16 09:00 07/21/16 08:59 06/21/16 08:25 80 MG Tamsulosin HCl (Flomax Cap) 0.4 mg DAILY PO 06/21/16 09:00 07/21/16 08:59 06/21/16 08:25 0.4 MG Pantoprazole Sodium (Protonix Tab) 40 mg BID PO 06/21/16 09:00 07/21/16 08:59 06/21/16 08:26 40 MG Polyethylene (Miralax Powder Packet) 17 gm DAILY PRN PO 06/21/16 02:30 07/20/16 23:29 Vancomycin HCl 1 ea 1 ea UD PRN N/A 06/21/16 02:30 07/21/16 02:29 Piperacillin Sod/ Tazobactam Sod/ Dextrose (Zosyn Iv/D5 100ml) 120 ml @ 30 mls/hr Q8H IV 06/21/16 12:00 07/01/16 11:59 Piperacillin Sod/ Tazobactam Sod (Consult) 1 ea UD PRN N/A 06/21/16 06:15 07/21/16 06:14 Diclofenac Sodium 50 mg 50 mg TID PRN PO 06/21/16 09:00 07/21/16 08:59 Vancomycin HCl/ Sodium Chloride (Vancomycin Inj/ Nss 500ml) 533 ml @ 200 mls/hr Q12@1000,2200 IV 06/21/16 10:00 06/30/16 09:59 06/21/16 10:00 200 MLS/HR Tiotropium [place] (Spiriva Handihaler Inhaler) 1 puff DAILY INH 06/21/16 09:00 07/21/16 08:59 06/21/16 08:56 1 PUFF Fentanyl Citrate (Fentanyl Inj) 25 mcg Q5M PRN IV 06/21/16 12:30 06/21/16 17:30 Hydromorphone HCl (Dilaudid Inj) 0.25 mg Q5M PRN IV 06/21/16 12:30 06/21/16 17:30 Ondansetron HCl (Zofran Inj) 4 mg ONE PRN IV 06/21/16 12:30 06/21/16 17:30 Ephedrine Sulfate (EpHEDrine SULFATE INJ) 5 mg Q5M PRN IV 06/21/16 12:30 06/21/16 17:30 Atropine Sulfate (Atropine Sulfate 0.1MG/Ml Inj) 0.5 mg Q1M PRN IV 06/21/16 12:30 06/21/16 17:30 Acetaminophen (Tylenol Tab) 650 mg Q6H PRN PO 06/21/16 13:45 07/21/16 13:44 Magnesium Hydroxide (Milk Of Magnesia Susp) 30 ml Q6H PRN PO 06/21/16 13:45 07/21/16 13:44 Bisacodyl (Dulcolax Supp) 10 mg DAILY PRN IA 06/21/16 13:45 07/21/16 13:44 Docusate Sodium (coLACE CAP) 100 mg BID PO 06/21/16 21:00 07/21/16 20:59 Multivitamins (Multivitamin Tab) 1 tab QAM PO 06/22/16 09:00 07/22/16 08:59 Objective Vital Signs Date Time Temp Pulse Resp B/P Pulse Ox O2 Delivery O2 Flow Rate FiO2 06/21/16 17:03 36.6 83 18 108/70 95 Nasal Cannula 2.0 06/21/16 15:15 36.7 82 18 107/70 98 Room Air 06/21/16 14:23 36.7 82 20 95/65 94 06/21/16 14:05 36.2 82 20 102/65 95 Nasal Cannula 4 06/21/16 13:55 81 20 95/70 94 Nasal Cannula 4 06/21/16 13:45 80 16 108/73 96 Mask 10 06/21/16 13:35 74 16 92/62 93 Mask 15 06/21/16 13:27 36 72 14 98/63 92 Mask 15 06/21/16 11:26 36.8 78 16 137/93 96 Room Air 06/21/16 10:33 151/89 06/21/16 08:00 Nasal Cannula 2.0 06/21/16 07:38 37.4 102 20 159/91 90 Room Air 06/21/16 05:42 37.6 98 149/91 92 06/21/16 01:28 37.3 99 20 156/88 93 Room Air 06/21/16 00:16 96 19 166/91 95 06/20/16 22:42 96 20 145/97 92 Room Air 06/20/16 21:02 90 18 178/105 94 Room Air 06/20/16 20:17 85 20 94 Room Air 06/20/16 18:12 36.5 88 20 176/107 95 Room Air Physical Exam General Appearance: WD/WN, no apparent distress, + obese Eyes: normal inspection ENT: normal ENT inspection, hearing grossly normal Neck: supple Respiratory/Chest: chest non-tender, lungs clear, normal breath sounds, no respiratory distress Cardiovascular: regular rate, rhythm Abdomen: normal bowel sounds, non tender, soft Extremities: + pertinent finding (left arm medial aspect tense, red, swollen and very tender to palpation) Neurologic/Psychiatric: alert, normal mood/affect, oriented x 3 Skin: + pertinent finding (several scratch gerber on the skin) Laboratory Results 06/21/16 05:57 Red Blood Count 4.59, Mean Corpuscular Volume 86.3, Mean Corpuscular Hemoglobin 28.1, Mean Corpuscular Hemoglobin Concent 32.6, Mean Platelet Volume 8.7, Neutrophils (%) (Auto) 71.7, Lymphocytes (%) (Auto) 14.7, Monocytes (%) (Auto) 11.3, Eosinophils (%) (Auto) 1.7, Basophils (%) (Auto) 0.2, Neutrophils # (Auto ) 10.41, Lymphocytes # (Auto) 2.14, Monocytes # (Auto) 1.65, Eosinophils # (Auto ) 0.25, Basophils # (Auto) 0.03 06/21/16 05:57 Test 06/20/16 18:50 06/21/16 05:57 06/21/16 07:52 Total Bilirubin 1.0 mg/dl (0.2-1) Direct Bilirubin 0.2 mg/dl (0-0.2) Aspartate Amino Transf (AST/SGOT) 29 U/L (15-37) Alanine Aminotransferase (ALT/SGPT) 40 U/L (12-78) Total Creatine Kinase 249 U/L (39-308) Total Protein 8.5 gm/dl (6.4-8.2) Albumin 3.6 gm/dl (3.4-5.0) White Blood Count 14.54 K/uL (4.8-10.8) Red Blood Count 4.59 M/uL (4.7-6.1) Hemoglobin 12.9 g/dL (14.0-18.0) Hematocrit 39.6 % (42-52) Mean Corpuscular Volume 86.3 fL (80-100) Mean Corpuscular Hemoglobin 28.1 pg (25-34) Mean Corpuscular Hemoglobin Concent 32.6 g/dl (32-36) Platelet Count 231 K/uL (130-400) Mean Platelet Volume 8.7 fL (7.4-10.4) Neutrophils (%) (Auto) 71.7 % Lymphocytes (%) (Auto) 14.7 % Monocytes (%) (Auto) 11.3 % Eosinophils (%) (Auto) 1.7 % Basophils (%) (Auto) 0.2 % Neutrophils # (Auto) 10.41 K/uL (1.4-6.5) Lymphocytes # (Auto) 2.14 K/uL (1.2-3.4) Monocytes # (Auto) 1.65 K/uL (0.11-0.59) Eosinophils # (Auto) 0.25 K/uL (0-0.5) Basophils # (Auto) 0.03 K/uL (0-0.2) RDW Standard Deviation 43.1 fL (36.4-46.3) RDW Coefficient of Variation 13.5 % (11.5-14.5) Immature Granulocyte % (Auto) 0.4 % Immature Granulocyte # (Auto) 0.06 K/uL (0.00-0.02) Prothrombin Time 10.3 SECONDS (9.0-12.0) Prothromb Time International Ratio 1.0 (0.9-1.1) Activated Partial Thromboplast Time 36.8 SECONDS (21.0-31.0) Partial Thromboplastin Ratio 1.4 Anion Gap 6.0 mmol/L (3-11) Est Creatinine Clear Calc Drug Dose 122.0 ml/min Estimated GFR () 109.8 Estimated GFR (Non- 94.7 BUN/Creatinine Ratio 15.5 (10-20) Estimated Average Glucose 146 mg/dl Hemoglobin A1c 6.7 % (4.5-5.6) Calcium Level 8.5 mg/dl (8.5-10.1) Alkaline Phosphatase 140 U/L (45-117) Prostate Specific Antigen 1.650 ng/ml (0.000-4.000) Thyroid Stimulating Hormone (TSH) 0.662 uIu/ml (0.300-4.500) Urine Color DK YELLOW Urine Appearance CLEAR (CLEAR) Urine pH 6.5 (4.5-7.5) Urine Specific [place] 1.030 (1.000-1.030) Urine Protein 1+ (NEG) Urine Glucose (UA) 1+ (NEG) Urine Ketones TRACE (NEG) Urine Occult Blood NEG (NEG) Urine Nitrite NEG (NEG) Urine Bilirubin NEG (NEG) Urine Urobilinogen NEG (NEG) Urine Leukocyte Esterase NEG (NEG) Urine WBC (Auto) 1-5 /hpf (0-5) Urine RBC (Auto) 0-4 /hpf (0-4) Urine Hyaline Casts (Auto) 1-5 /lpf (0-5) Urine Epithelial Cells (Auto) 20-30 /lpf (0-5) Urine Bacteria (Auto) NEG (NEG) Assessment and Plan 61-year-old male with a past medical history of bilateral neuropathy, chronic back pain, hepatitis C, osteoarthritis presented with complaints of 2 day history of rapidly progressive cellulitis around his left eye and left medial aspect of upper arm. He said he developed a swelling about his right eye which he popped resulting in pus like drainage. Meanwhile he also developed left-sided arm swelling about the same time but can' t recollect if he had any insect bites or trauma to the area. No concerns of orbital cellulitis. Left upper arm and right preseptal cellulitis: Status post I&D of left arm abscess - History of MRSA infections in the past - Blood cultures pending - Ultrasound left arm: 1. Fibrin stranding within the left cephalic vein, likely chronic 2. No evidence of acute left upper extremity DVT 3. 6.2 x 15.4 x 3.5 cm heterogeneous soft tissue mass within the left mid medial upper arm. Likely diagnostic considerations include intramuscular hemorrhage, or developing phlegmon. A neoplasm is felt to be statistically less likely. - Continue vancomycin and Zosyn considering recent TKA - Orthopedic consultation: Status post I&D left arm abscess - Continue home pain meds - Elevation and ice on affected area Dysuria, urinary frequency and Nocturia - - Initial ALP 170--->140 - PSA 1.6 - UA + micro +/- culture - Continue tamsulosin COPD/Asthma -Continue dual nebs 4 times a day - Continue home maintenance inhalers. Anxiety / depression - continue duloxetine DO NOT RESUSCITATE DVT prophylaxis: -May restart Lovenox later tonight Disposition MedSurg Discharge planning: home Resident Tracking Resident Involvement: Resident Care Provided Care Provided: Adult Hospital Medicine Reviewed: Pt Seen/Exam by Me History Resident Physician Supervision Note: I interviewed and examined the patient. Discussed with Dr. Jeff and agree with findings and plan as documented in the note. Any exceptions or clarifications are listed here: Pt now post-op from left upper arm I&D and washout, feeling ok, afebrile. Vitals reviewed NAD RRR no mgr CTAB no wcr Abd soft NT ND+BS Ext: left arm in dressing and sling, no edema in legs Skin: right supraorbital/lateral eyebrow with 1 cm area of erythematous fluctuent mass with scab and no active drainage 61 yo male with periorbital abscess/cellulitis and left upper arm abscess/ cellulitis s/p I&D. Has h/o MRSA infection in the past -Appreciate ortho management surgically -continue Zosyn and Vanco -f/u cultures -continue pain management -CHG wipes for body Documented By: Mary Carlson
[2016-06-21] MEDS: ACETAMINOPHEN 325 MG TAB PO PRN (20:12)
[2016-06-21] MEDS: DOCUSATE SODIUM 100 MG CAP PO SCH (21:31)
[2016-06-21 22:15] LABS: BENZODIAZEPINE, URINE POS (NEG); COCAINE,URINE NEG (NEG); PHENCYCLIDINE, URINE NEG (NEG)
[2016-06-22] MEDS: PIPERACILL/TAZOBAC IV 4.5 GM in DEXTROSE 5% 100ML IV SCH ×3 (04:13→20:06)
[2016-06-22] MEDS: HYDROmorphone HCL 2 MG TAB PO PRN ×3 (04:18→17:54)
[2016-06-22] MEDS: ACETAMINOPHEN 325 MG TAB PO PRN ×2 (06:48→20:09)
[2016-06-22 06:51] LABS: HEMATOCRIT 36.3 % (42-52); MEAN CELL VOLUME 87.9 fL (80-100); MEAN CORPUSCULAR HEMOGLOBIN 28.8 pg (25-34); MEAN CORPUSCULAR HGB CONC 32.8 g/dl (32-36); MEAN PLATELET VOLUME 9.1 fL (7.4-10.4); PLATELET COUNT 203 K/uL (130-400); RED BLOOD COUNT 4.13 M/uL (4.7-6.1)
[2016-06-22 07:18] VITALS: BP 144/77; PULSE 89; TEMP 36.7; O2SAT 92
[2016-06-22 07:19] LABS: CREATININE 1.1 mg/dl (0.60-1.40)
[2016-06-22] MEDS: PANTOprazole SOD 40 MG TAB PO SCH ×2 (07:52→21:57)
[2016-06-22] MEDS: PROPRANOLOL HCL 80 MG TAB PO SCH ×2 (07:52→21:58)
[2016-06-22] MEDS: DOCUSATE SODIUM 100 MG CAP PO SCH ×2 (07:53→21:56)
[2016-06-22] MEDS: LOSARTAN POTASSIUM 50 MG TAB PO SCH (07:53)
[2016-06-22] MEDS: CHOLECALCIFEROL 1000 INTER.UNIT TAB PO SCH (07:54)
[2016-06-22] MEDS: DULOXETINE HCL 60 MG CAP PO SCH (07:54)
[2016-06-22] MEDS: TAMSULOSIN HCL 0.4 MG CAP PO SCH (07:54)
[2016-06-22] MEDS: MULTIVITAMIN TAB PO SCH (07:55)
[2016-06-22] MEDS: MOMETASONE FUROATE 14 PUFF/1 INHALER INH SCH (07:55)
[2016-06-22] MEDS: TIOTROPIUM BROMIDE 5 PUFF/90 MCG INH INH SCH (07:56)
--- NOTE | 2016-06-22 08:25 | Anesthesiology Progress Note ---
Anesthesia Post Op Note Date & Time June 22, 2016 at 08:25 Vital Signs Pain Intensity: 9.0 Vital Signs Past 12 Hours Date Time Temp Pulse Resp B/P Pulse Ox O2 Delivery O2 Flow Rate FiO2 06/22/16 07:18 36.7 89 18 144/77 92 Room Air 06/22/16 00:00 Room Air 06/21/16 23:37 36.9 82 16 110/64 91 Room Air 06/21/16 21:50 90 120/75 Notes Mental Status: alert / awake / arousable, participated in evaluation Pt Amnestic to Procedure: Yes Nausea / Vomiting: adequately controlled Pain: adequately controlled Airway Patency, RR, SpO2: stable & adequate BP & HR: stable & adequate Hydration State: stable & adequate Anesthetic Complications: no major complications apparent
--- NOTE | 2016-06-22 09:00 | Orthopedic Progress Note ---
Orthopedic Progress Note Date of Service June 22, 2016. Subjective Post OP Day: 1 Reports: complaints (States pain when pain medication wears off), feeling well, pain controlled w PO medications, Denies: SOB, calf pain, chest pain, light headedness, nausea / vomiting Additional Notes: Hemovac pulled out this AM prior to our visit. Nursing assessing at bedside upon our arrival. Per nursing minimal drainage last night. Objective calves soft nontender, N/V intact, capillary refill less than 2 sec., dressing C /D/I, incision C/D/I, A&O x3, toes mobile Elbow ROM -30 extension, 110 flexion. improved erythema/edema left upper extremity Date Time Temp Pulse Resp B/P Pulse Ox O2 Delivery O2 Flow Rate FiO2 06/22/16 07:18 36.7 89 18 144/77 92 Room Air 06/22/16 00:00 Room Air 06/21/16 23:37 36.9 82 16 110/64 91 Room Air 06/21/16 21:50 90 120/75 06/21/16 20:20 36.6 83 18 113/73 92 Room Air 06/21/16 18:27 109/71 06/21/16 17:58 36.7 80 20 92/57 91 Room Air 2.0 06/21/16 17:03 36.6 83 18 108/70 95 Nasal Cannula 2.0 06/21/16 16:00 98 Room Air 2.0 Nasal Cannula 06/21/16 15:15 36.7 82 18 107/70 98 Room Air 06/21/16 14:23 36.7 82 20 95/65 94 06/21/16 14:05 36.2 82 20 102/65 95 Nasal Cannula 4 06/21/16 13:55 81 20 95/70 94 Nasal Cannula 4 06/21/16 13:45 80 16 108/73 96 Mask 10 06/21/16 13:35 74 16 92/62 93 Mask 15 06/21/16 13:27 36 72 14 98/63 92 Mask 15 06/21/16 11:26 36.8 78 16 137/93 96 Room Air 06/21/16 10:33 151/89 Laboratory Results 24 Hours: Test 06/22/16 06:10 Hematocrit 36.3 % Hemoglobin 11.9 g/dL Additional Notes: Cultures pending - positive for gram positive cocci, urine tox screen pending Assessment & Plan Assessment: POD 1 s/p I & D left arm abscess Plan: Sling left arm for comfort. Tolerating regular diet. Pain medicine as prescribed by medicine. OOB as tolerated Continue IV abx per medicine. Dressings changed left arm. Hemovac D/C left arm. Ice to left arm as needed Elevate left arm as needed for pain/swelling Dr. Godoy present for dressing change. Will continue to follow.
[2016-06-22] MEDS ORDERED: VANCOMYCIN TROUGH SCH (09:30)
[2016-06-22] MEDS: VANCOMYCIN INJ 1,650 MG in SODIUM CHLORIDE 0.9% 500ML 500 ML IV SCH ×2 (10:04→21:58)
--- NOTE | 2016-06-22 10:51 | Pharmacy Progress Note ---
Pharmacy Antibiotic Prog Note Date of Service June 22, 2016. Subjective The patient is currently receiving vancomycin and zosyn for abscess/skin infection The patient is currently on day # 3 of IV therapy. Objective Height (Feet): 5 Height (Inches): 11.00 Weight (Kilograms): 120.500 Lab Results (24hrs): Test 06/21/16 21:10 06/22/16 06:10 06/22/16 09:40 Urine Opiates Screen POS (NEG) Urine Methadone, Qualitative NEG (NEG) Urine Barbiturates NEG (NEG) Urine Phencyclidine (PCP) Level NEG (NEG) Ur Amphetamine/Methamphetamine NEG (NEG) MDMA (Ecstasy) Screen NEG (NEG) Urine Benzodiazepines Screen POS (NEG) Urine Cocaine Metabolite NEG (NEG) Urine Marijuana (THC) NEG (NEG) White Blood Count 10.10 K/uL (4.8-10.8) Red Blood Count 4.13 M/uL (4.7-6.1) Hemoglobin 11.9 g/dL (14.0-18.0) Hematocrit 36.3 % (42-52) Mean Corpuscular Volume 87.9 fL (80-100) Mean Corpuscular Hemoglobin 28.8 pg (25-34) Mean Corpuscular Hemoglobin Concent 32.8 g/dl (32-36) RDW Standard Deviation 44.7 fL (36.4-46.3) RDW Coefficient of Variation 13.7 % (11.5-14.5) Platelet Count 203 K/uL (130-400) Mean Platelet Volume 9.1 fL (7.4-10.4) Creatinine 1.10 mg/dl (0.60-1.40) Est Creatinine Clear Calc Drug Dose 94.3 ml/min Estimated GFR () 84.1 Estimated GFR (Non- 72.6 Vancomycin Level Trough 13.6 mcg/ml (SEE COMMENT) Micro Results: Item Value Date Time Gram Stain - Final Resulted 06/21/16 1235 Abscess Left Upper Extremity Blood Culture - Preliminary Resulted 06/20/16 1942 Blood NO GROWTH TO DATE. Blood Culture - Preliminary Resulted 06/20/16 1850 Blood NO GROWTH TO DATE. Assessment & Plan Patient started on vancomycin and zosyn for abscess infection. BC x 2 are no growth. Abscess culture of upper arm is pending. Of note, patient with hx of MRSA infection. Vancomycin: * Trough level this am was ~13.6 mcg/ml (goal 15-20 mcg/ml) * Level drawn before steady state, therefore estimated true trough >15 mcg/ml * Will continue with current regimen for now, based upon previous admissions dosing regimen did produce a therapeutic trough (Scr today is closer to previous admission that produced therapeutic trough) * Will plan to redraw trough prior to the 1000 dose on 06/24 to ensure therapeutic (patient is also at risk of accumulation due to elevated BMI>35 kg/ m2 so will monitor closely) Zosyn: * 4.5 gm iv q 8 hrs (appropriate for CrCl >20 ml/min and BMI>35 kg/m2) Pharmacy will continue to follow and will adjust dose/frequency as necessary. Thank you
--- NOTE | 2016-06-22 11:22 | Family Medicine Progress Note ---
Progress Note Date of Service June 22, 2016. Subjective Pt evaluation today including: conversation w/ patient Voiding: no voiding problems 61-year-old male with a past medical history of bilateral neuropathy, chronic back pain, hepatitis C, osteoarthritis presented with complaints of 2 day history of rapidly progressive cellulitis around his left eye and left medial aspect of upper arm. He said he developed a swelling about his right eye which he popped resulting in pus like drainage. Meanwhile he also developed left-sided arm swelling about the same time but can' t recollect if he had any insect bites or trauma to the area. And undergone I& D of the arm abscess yesterday which he tolerated well. Denies any fevers or chills. Denies any painful eye movements, diplopia, blurriness of vision Constitutional: No chills, No fever Eyes: No worsening of vision ENT: No hearing loss Respiratory: No cough Cardiovascular: No chest pain Breast: No breast lump Abdomen: No diarrhea, No nausea, No pain, No vomiting Medications Current Inpatient Medications Medications (Trade) Dose Ordered Sig/Tash Route Start Time Stop Time Status Last Admin Dose Admin Miscellaneous (Iv Fluids Completed) 1 ea PRN PRN N/A 06/20/16 23:45 06/20/17 23:44 Cholecalciferol (Vitamin D Tab) 2,000 inter.unit DAILY PO 06/21/16 09:00 07/21/16 08:59 06/22/16 07:54 2,000 INTER.UNIT Duloxetine HCl (Cymbalta Cap) 60 mg QAM PO 06/21/16 09:00 07/21/16 08:59 06/22/16 07:54 60 MG Hydromorphone HCl (Dilaudid Tab) 2 mg Q4H PRN PO 06/21/16 00:00 07/05/16 00:00 06/21/16 08:24 2 MG Hydromorphone HCl (Dilaudid Tab) 4 mg Q4H PRN PO 06/21/16 00:00 07/05/16 00:00 06/22/16 17:54 4 MG Hydroxyzine HCl (Vistaril Tab) 10 mg BID PRN PO 06/21/16 00:00 07/21/16 00:00 Losartan Potassium (coZAAR TAB) 100 mg QAM PO 06/21/16 09:00 07/21/16 08:59 06/22/16 07:53 100 MG Mometasone Furoate (Asmanex 220MCG Inh) 1 puff DAILY INH 06/21/16 09:00 07/21/16 08:59 06/22/16 07:55 1 PUFF Propranolol HCl (Inderal Tab) 80 mg BID PO 06/21/16 09:00 07/21/16 08:59 06/22/16 07:52 80 MG Tamsulosin HCl (Flomax Cap) 0.4 mg DAILY PO 06/21/16 09:00 07/21/16 08:59 06/22/16 07:54 0.4 MG Pantoprazole Sodium (Protonix Tab) 40 mg BID PO 06/21/16 09:00 07/21/16 08:59 06/22/16 07:52 40 MG Polyethylene (Miralax Powder Packet) 17 gm DAILY PRN PO 06/21/16 02:30 07/20/16 23:29 Vancomycin HCl 1 ea 1 ea UD PRN N/A 06/21/16 02:30 07/21/16 02:29 Piperacillin Sod/ Tazobactam Sod/ Dextrose (Zosyn Iv/D5 100ml) 120 ml @ 30 mls/hr Q8H IV 06/21/16 12:00 07/01/16 11:59 06/22/16 12:35 30 MLS/HR Piperacillin Sod/ Tazobactam Sod (Consult) 1 ea UD PRN N/A 06/21/16 06:15 07/21/16 06:14 Diclofenac Sodium 50 mg 50 mg TID PRN PO 06/21/16 09:00 07/21/16 08:59 06/22/16 07:50 50 MG Vancomycin HCl/ Sodium Chloride (Vancomycin Inj/ Nss 500ml) 533 ml @ 200 mls/hr Q12@1000,2200 IV 06/21/16 10:00 06/30/16 09:59 06/22/16 10:04 200 MLS/HR Tiotropium [place] (Spiriva Handihaler Inhaler) 1 puff DAILY INH 06/21/16 09:00 07/21/16 08:59 06/22/16 07:56 1 PUFF Acetaminophen (Tylenol Tab) 650 mg Q6H PRN PO 06/21/16 13:45 07/21/16 13:44 06/22/16 06:48 650 MG Magnesium Hydroxide (Milk Of Magnesia Susp) 30 ml Q6H PRN PO 06/21/16 13:45 07/21/16 13:44 Bisacodyl (Dulcolax Supp) 10 mg DAILY PRN SD 06/21/16 13:45 07/21/16 13:44 Docusate Sodium (coLACE CAP) 100 mg BID PO 06/21/16 21:00 07/21/16 20:59 06/22/16 07:53 100 MG Multivitamins (Multivitamin Tab) 1 tab QAM PO 06/22/16 09:00 07/22/16 08:59 06/22/16 07:55 1 TAB Objective Vital Signs Date Time Temp Pulse Resp B/P Pulse Ox O2 Delivery O2 Flow Rate FiO2 06/22/16 16:00 Room Air 06/22/16 15:26 36.6 78 20 105/65 93 Room Air 06/22/16 08:00 Room Air 06/22/16 07:18 36.7 89 18 144/77 92 Room Air 06/22/16 00:00 Room Air 06/21/16 23:37 36.9 82 16 110/64 91 Room Air 06/21/16 21:50 90 120/75 06/21/16 20:20 36.6 83 18 113/73 92 Room Air Physical Exam General Appearance: WD/WN, no apparent distress, + obese Eyes: normal inspection, + pertinent finding (right preseptal swelling, nontender, nonerythematous) ENT: normal ENT inspection, hearing grossly normal Neck: supple Respiratory/Chest: chest non-tender, lungs clear, no respiratory distress, no accessory muscle use Cardiovascular: regular rate, rhythm Abdomen: normal bowel sounds, non tender, soft Extremities: + pertinent finding (s/p I and D of left arm cellulitis ) Neurologic/Psychiatric: alert, normal mood/affect, oriented x 3 Laboratory Results 06/22/16 06:10 06/22/16 06:10 Test 06/21/16 21:10 06/22/16 06:10 06/22/16 09:40 Urine Opiates Screen POS (NEG) Urine Methadone, Qualitative NEG (NEG) Urine Barbiturates NEG (NEG) Urine Phencyclidine (PCP) Level NEG (NEG) Ur Amphetamine/Methamphetamine NEG (NEG) MDMA (Ecstasy) Screen NEG (NEG) Urine Benzodiazepines Screen POS (NEG) Urine Cocaine Metabolite NEG (NEG) Urine Marijuana (THC) NEG (NEG) Red Blood Count 4.13 M/uL (4.7-6.1) Mean Corpuscular Volume 87.9 fL (80-100) Mean Corpuscular Hemoglobin 28.8 pg (25-34) Mean Corpuscular Hemoglobin Concent 32.8 g/dl (32-36) RDW Standard Deviation 44.7 fL (36.4-46.3) RDW Coefficient of Variation 13.7 % (11.5-14.5) Mean Platelet Volume 9.1 fL (7.4-10.4) Est Creatinine Clear Calc Drug Dose 94.3 ml/min Estimated GFR () 84.1 Estimated GFR (Non- 72.6 Vancomycin Level Trough 13.6 mcg/ml (SEE COMMENT) Assessment and Plan 61-year-old male with a past medical history of bilateral neuropathy, chronic back pain, hepatitis C, osteoarthritis presented with complaints of 2 day history of rapidly progressive cellulitis around his left eye and left medial aspect of upper arm. He said he developed a swelling about his right eye which he popped resulting in pus like drainage. Meanwhile he also developed left-sided arm swelling about the same time but can' t recollect if he had any insect bites or trauma to the area. No concerns of orbital cellulitis. Had undergone I&D of the abscess yesterday. Left upper arm and right preseptal cellulitis: Status post I&D of left arm abscess - History of MRSA infections in the past - Gram stain from the wound positive for gram-positive cocci, wound culture pending - Blood cultures pending - Ultrasound left arm: 1. Fibrin stranding within the left cephalic vein, likely chronic 2. No evidence of acute left upper extremity DVT 3. 6.2 x 15.4 x 3.5 cm heterogeneous soft tissue mass within the left mid medial upper arm. Likely diagnostic considerations include intramuscular hemorrhage, or developing phlegmon. A neoplasm is felt to be statistically less likely. - Continue vancomycin and Zosyn considering recent TKA - Orthopedic consultation: Status post I&D left arm abscess - Continue home pain meds - Elevation and ice on affected area Right-sided periorbital/preseptal abscess: - warm compresses -Antibiotics as above Dysuria, urinary frequency and Nocturia - - Initial ALP 170--->140 - PSA 1.6 - UA + micro +/- culture - Continue tamsulosin COPD/Asthma -Continue duo nebs 4 times a day - Continue home maintenance inhalers. Anxiety / depression - continue duloxetine DO NOT RESUSCITATE DVT prophylaxis: Lovenox Disposition [facility] Resident Tracking Resident Involvement: Resident Care Provided Care Provided: Adult Hospital Medicine Reviewed: Pt Seen/Exam by Me History Resident Physician Supervision Note: I interviewed and examined the patient. Discussed with Dr. Jeff and agree with findings and plan as documented in the note. Any exceptions or clarifications are listed here: Patient is doing well, pain is controlled, afebrile. Vitals reviewed NAD RRR no mgr CTAB no wcr Abd soft NT ND+BS Ext: left arm in dressing and sling, no edema in legs Skin: right supraorbital/lateral eyebrow with 1 cm area of erythematous fluctuant mass with scab and no active drainage, slightly improved from yesterday 61 yo male with periorbital abscess/cellulitis and left upper arm abscess/ cellulitis s/p I&D. Has h/o MRSA infection in the past -Appreciate ortho management surgically -continue Zosyn and Vanco -f/u cultures -continue pain management -CHG wipes for body Documented By: Mary Carlson
[2016-06-22 15:26] VITALS: BP 105/65; PULSE 78; TEMP 36.6; O2SAT 93
[2016-06-22 21:58] VITALS: BP 128/82; PULSE 85
[2016-06-22 23:48] VITALS: BP 147/80; PULSE 82; TEMP 36.7; O2SAT 93
[2016-06-23] MEDS: HYDROmorphone HCL 2 MG TAB PO PRN ×5 (01:04→14:53)
[2016-06-23] MEDS: PIPERACILL/TAZOBAC IV 4.5 GM in DEXTROSE 5% 100ML IV SCH ×2 (05:26→12:16)
[2016-06-23 07:05] VITALS: BP 148/90; PULSE 84; TEMP 36.7; O2SAT 91
[2016-06-23 07:08] LABS: CREATININE 1.1 mg/dl (0.60-1.40)
[2016-06-23 07:39] LABS: HEMATOCRIT 34.8 % (42-52); MEAN CELL VOLUME 87.2 fL (80-100); MEAN CORPUSCULAR HEMOGLOBIN 29.1 pg (25-34); MEAN CORPUSCULAR HGB CONC 33.3 g/dl (32-36); PLATELET COUNT 201 K/uL (130-400); RED BLOOD COUNT 3.99 M/uL (4.7-6.1); WHITE BLOOD COUNT 9.64 K/uL (4.8-10.8)
[2016-06-23 07:57] LABS: CALCIUM 8.8 mg/dl (8.5-10.1); CREATININE 1.1 mg/dl (0.60-1.40); POTASSIUM 4.1 mmol/L (3.5-5.1)
[2016-06-23 08:00] VITALS: O2SAT 91
[2016-06-23] MEDS: PANTOprazole SOD 40 MG TAB PO SCH (08:23)
[2016-06-23] MEDS: PROPRANOLOL HCL 80 MG TAB PO SCH (08:23)
[2016-06-23] MEDS: TIOTROPIUM BROMIDE 5 PUFF/90 MCG INH INH SCH (08:24)
[2016-06-23] MEDS: TAMSULOSIN HCL 0.4 MG CAP PO SCH (08:24)
[2016-06-23] MEDS: DOCUSATE SODIUM 100 MG CAP PO SCH (08:24)
[2016-06-23] MEDS: CHOLECALCIFEROL 1000 INTER.UNIT TAB PO SCH (08:25)
[2016-06-23] MEDS: MULTIVITAMIN TAB PO SCH (08:25)
[2016-06-23] MEDS: LOSARTAN POTASSIUM 50 MG TAB PO SCH (08:25)
[2016-06-23] MEDS: MOMETASONE FUROATE 14 PUFF/1 INHALER INH SCH (08:26)
[2016-06-23] MEDS: DULOXETINE HCL 60 MG CAP PO SCH (08:26)
--- NOTE | 2016-06-23 09:16 | Orthopedic Progress Note ---
Orthopedic Progress Note Date of Service June 23, 2016. Subjective Post OP Day: 2 Reports: complaints (pain in left arm especially with movement. He states it's getting itchy and burny. Still not as bad as it was before surgery. ), pain controlled w PO medications, Denies: SOB, calf pain, chest pain, light headedness, nausea / vomiting Objective calves soft nontender, N/V intact, capillary refill less than 2 sec., incision C /D/I, A&O x3, toes mobile Dressings with mild serous drainage. No active draining from the incision. Mihai had been re-wrapped, dressings falling down arm to elbow. Tolerates ROM of left elbow to -20 of extension, flexion to 110. NO effusion left knee, incision healed, no erythema, Full painless ROM left knee. Date Time Temp Pulse Resp B/P Pulse Ox O2 Delivery O2 Flow Rate FiO2 06/23/16 07:05 36.7 84 18 148/90 91 Room Air 06/23/16 00:00 Room Air 06/22/16 23:48 36.7 82 18 147/80 93 Room Air 06/22/16 21:58 85 128/82 06/22/16 16:00 Room Air 06/22/16 15:26 36.6 78 20 105/65 93 Room Air Laboratory Results 24 Hours: Test 06/23/16 06:12 Hematocrit 34.8 % Hemoglobin 11.6 g/dL Additional Notes: Date/Time Source Procedure Growth Status 06/20/16 19:42 Blood Blood Culture - Preliminary NO GROWTH TO DATE. Resulted 06/21/16 12:35 Abscess Left Upper Extremity Gram Stain - Final Resulted 06/21/16 12:35 Bacterial Culture - Preliminary Staphylococcus Aureus Resulted Assessment & Plan Assessment: POD 2 s/p I & D left arm abscess Plan: Sling left arm for comfort. Tolerating regular diet. Pain medicine as prescribed by medicine. Antibiotics as recommended by medicine. OOB as tolerated, allowed for full ROM left arm. Dressings changed left arm today at bedside Ice to left arm as needed Elevate left arm as needed for pain/swelling Will discuss findings with Dr. Godoy. Discussed plan with Dr. Jeff. Dressing changes PRN left arm. Okay from ortho standpoint for discharge to home with home health when medically stable. Discharge Planning Discharge Planning: home with home health
--- NOTE | 2016-06-23 09:21 | Consultant Recommendations ---
Commodity Supervisor Recommendations Date of Service June 23, 2016. Commodity Supervisor Recommendations Ice to left arm as needed for pain/swelling. Keep dressings on left arm daily. Change as needed with xeroform, 4x4's, ABD pad, Vivienne and Mihai bandage. Elevate left arm as needed above your heart on pillows to relieve pain/swelling. Ok to shower beginning Tuesday06/25/16. Do not scrub or soak wound, pat incision dry. Reapply dressings after showering. Allow/encourage range of motion of left hand, fingers, wrist, elbow and shoulder. You have a follow up appointment with Dr. Godoy on 06/30/16 at 3:45 p.m. Please call [phone] with questions, concerns, fever or chills.
[2016-06-23] MEDS: VANCOMYCIN INJ 1,650 MG in SODIUM CHLORIDE 0.9% 500ML 500 ML IV SCH (11:03)
[2016-06-23] MEDS ORDERED: DOXY100C76 PO (15:06)
[2016-06-23] MEDS ORDERED: DLD/2 PO (15:06)
--- NOTE | 2016-06-23 15:10 | Discharge Instructions ---
Discharge Instructions Date of Service June 23, 2016. Admission Reason for Admission: Cellulitis Lt Upper Arm, Mrsa Infection, Preseptal Discharge Discharge Diagnosis / Problem: Cellulitis/abscess of Left upper arm and right preseptal area Discharge Goals Goal(s): Decrease discomfort, Improve function Activity Recommendations Activity Limitations: resume your previous activity . Instructions / Follow-Up Instructions / Follow-Up You were admitted with left arm and right upper eyelid area swelling which were concerning for cellulitis. You had an incision and drainage performed on your left arm which was positive for MRSA bacteria Recommendations: Left arm cellulitis/abscess: Ice to left arm as needed for pain/swelling. Keep dressings on left arm daily. Change as needed with xeroform, 4x4's, ABD pad, Vivienne and Mihai bandage. Elevate left arm as needed above your heart on pillows to relieve pain/swelling. Ok to shower beginning Tuesday06/25/16. Do not scrub or soak wound, pat incision dry. Reapply dressings after showering. Home RN can help you with the dressing changes. Allow/encourage range of motion of left hand, fingers, wrist, elbow and shoulder. You have a follow up appointment with Dr. Godoy on 06/30/16 at 3:45 p.m. Please call [phone] with questions, concerns, fever or chills. Please use doxycycline 100 mg twice daily for 10 days for an antibiotic. - Continue home pain medications Abscesses above the right eye - warm compresses on the affected area for 15 min three times daily -Use doxycycline COPD/Asthma - Continue home maintenance inhalers. Anxiety / depression - continue duloxetine Please follow-up with your PCP in about a week Follow-up with Dr. Godoy as scheduled Current Hospital Diet Patient's current hospital diet: Regular Diet Discharge Diet Recommended Diet: Regular Diet Procedures Procedures Performed: Incision, Drainage, Debridement of Left Arm Abscess Pending Studies Studies pending at discharge: yes List of pending studies: Final Blood culture result-no growth to date Laboratory Results Hemoglobin A1c Test 06/21/16 05:57 Range/Units Estimated Average Glucose 146 mg/dl Hemoglobin A1c 6.7 H 4.5-5.6 % Medical Emergencies . Who to Call and When: Medical Emergencies: If at any time you feel your situation is an emergency, please call 911 immediately. . Non-Emergent Contact Non-Emergency issues call your: Primary Care Provider, Specialist . . "Provider Documentation" section prepared by Missy Jeff. . Airline Radio Operator Recommendations Airline Radio Operator Recommendations: Ice to left arm as needed for pain/swelling. Keep dressings on left arm daily. Change as needed with xeroform, 4x4's, ABD pad, Vivienne and Mihai bandage. Elevate left arm as needed above your heart on pillows to relieve pain/swelling. Ok to shower beginning Tuesday06/25/16. Do not scrub or soak wound, pat incision dry. Reapply dressings after showering. Allow/encourage range of motion of left hand, fingers, wrist, elbow and shoulder. You have a follow up appointment with Dr. Godoy on 06/30/16 at 3:45 p.m. Please call [phone] with questions, concerns, fever or chills. VTE Core Measure Inpt VTE Proph given/why not?: Enoxaparin (Lovenox) [place] Drug Monitoring Program Search Results: patient reviewed within database Resident Tracking Resident Involvement: Resident Care Provided Care Provided: Adult Hospital Medicine
[2016-06-23 15:14] VITALS: BP 153/105; PULSE 76; TEMP 36.7; O2SAT 93
--- NOTE | 2016-06-23 15:21 | Discharge Summary ---
Discharge Summary Date of Service June 23, 2016. (Missy Jeff MD) Discharge Summary Admission Date: June 21, 2016 at 03:57 Discharge Date: June 23, 2016 Discharge Disposition: Home Principal Diagnosis: Left arm cellulitis /abscess, Right pressepatal cellulitis Problems/Secondary Diagnoses: (1) Asthma, Unspecified Status: Chronic (2) Carpal Tunnel Syndrome Status: Chronic (3) Hypertension Nos Status: Chronic (4) Rheumatoid Arthritis Status: Chronic Immunizations: Have You Had Influenza Vaccine: Yes Influenza Vaccine Date: Nov 16, 2010 History of Tetanus Vaccine?: Unknown History of Pneumococcal: No History of Hepatitis B Vaccine: Unknown Consultations: Orthopedic surgery (Missy Jeff MD) Medication Reconciliation New Medications: Doxycycline Monohydrate (Monodox) 100 Mg Cap 100 MG PO BID for 10 Days, #20 CAP Continued Medications: Albuterol Sulfate (Proventil Hfa) 108 Mcg/Act Aer 2 PUFFS INH QID PRN for Shortness of Breath Cholecalciferol (Vitamin D3) 1,000 Unit Tab 2000 INTER.UNIT PO DAILY, TAB Diclofenac (Voltaren) 50 Mg Tabec 50 MG PO DAILY PRN for Pain/Inflamation, TAB Duloxetine HCl (Duloxetine HCl) 60 Mg Cap 60 MG PO QAM Hydromorphone Hcl (Dilaudid) 4 Mg Tab 4 MG PO Q4H PRN for Pain Hydromorphone HCl (Hydromorphone HCl) 2 Mg Tab 2 MG PO Q4H PRN for Pain, #15 (This prescription has been renewed) Hydroxyzine HCl (Hydroxyzine HCl) 10 Mg Tab 10 MG PO BID PRN for Anxiety Losartan Potassium (Cozaar) 100 Mg Tab 100 MG PO QAM, TAB Mometasone Furoate (Inhalation (Asmanex Tw[place]er 120 Me) 220 Mcg/Inh Aer 1 PUFF INH DAILY Omeprazole (Prilosec) 20 Mg Cap 40 MG PO DAILY, CAP Propranolol (Inderal) 80 Mg Tab 80 MG PO BID, TAB Tamsulosin Hcl (Flomax) 0.4 Mg Cap 0.4 MG PO DAILY, CAP Tiotropium [place] (Spiriva Handihaler) 30 Puff/540 Mcg Aerp 1 CAP INH DAILY, INHALER Discharge Exam Doing well. denied any fevers/chills overnight. Review of Systems: Constitutional: No chills, No fever Eyes: No worsening of vision ENT: No hearing loss Respiratory: No cough Cardiovascular: No chest pain Abdomen: No nausea, No pain, No vomiting Musculoskeletal: No joint pain Genitourinary - Female: No dysuria, No urinary frequency Neurologic: No memory loss Psychiatric: No depression symptoms Endocrine: No fatigue Physical Exam: General Appearance: WD/WN, no apparent distress, + obese Eyes: normal inspection ENT: normal ENT inspection, hearing grossly normal Neck: supple Respiratory/Chest: chest non-tender, lungs clear, normal breath sounds Cardiovascular: regular rate, rhythm, no edema Abdomen / GI: normal bowel sounds Extremities: normal inspection, no pedal edema Neurologic/Psychiatric: alert, normal mood/affect, oriented x 3 Skin: normal color (Missy eJff MD) Hospital Course 61-year-old male with a past medical history of bilateral neuropathy, chronic back pain, hepatitis C, osteoarthritis presented with complaints of 2 day history of rapidly progressive cellulitis around his left eye and left medial aspect of upper arm. He said he developed a swelling about his right eye which he popped resulting in pus like drainage. Meanwhile he also developed left-sided arm swelling about the same time but can' t recollect if he had any insect bites or trauma to the area. Denies any fevers or chills. Left upper arm and right preseptal cellulitis: Status post I&D of left arm abscess - History of MRSA infections in the past - Gram stain from the wound positive for gram-positive cocci, wound culture was positive for MRSA - Blood cultures negative so far - Ultrasound left arm: 1. Fibrin stranding within the left cephalic vein, likely chronic 2. No evidence of acute left upper extremity DVT 3. 6.2 x 15.4 x 3.5 cm heterogeneous soft tissue mass within the left mid medial upper arm. Likely diagnostic considerations include intramuscular hemorrhage, or developing phlegmon. A neoplasm is felt to be statistically less likely. - Continue to use doxycycline for 10 days - Orthopedics was consulted and he had an I&D of his left arm abscess - Continue home pain meds, prescription for Dilaudid 15 tabs of 2 mg given - Elevation and ice on affected area - Wound care instructions given , home health for daily dressing changes - Change as needed with xeroform, 4x4's, ABD pad, Vivienne and Mihai bandage. Right-sided periorbital/preseptal abscess: - Warm compresses -Antibiotics as above COPD/Asthma - Continue home maintenance inhalers. Anxiety / depression - continue duloxetine Follow up appointment with Dr. Godoy on 06/30/16 at 3:45 p.m. Please call [phone] with questions, concerns, fever or chills. Follow-up with PCP in one week Total Time Spent: Greater than 30 minutes This includes examination of the patient, discharge planning, medication reconciliation, and communication with other providers. (Missy Jeff MD) Discharge Instructions Please refer to the electronic Patient Visit Report (Discharge Instructions) for additional information. (Missy Jeff MD) Follow-Up Follow up appointment with Dr. Godoy on 06/30/16 at 3:45 p.m. Please call [phone] with questions, concerns, fever or chills. Follow-up with PCP in one week (Missy Jeff MD) Additional Copies To Doc Morejon M.D. Resident Tracking Resident Involvement: Resident Care Provided Care Provided: [facility] Medicine (Missy Jeff MD) Reviewed: Pt Seen/Exam by Me (Mary Carlson MD) History Resident Physician Supervision Note: I interviewed and examined the patient. Discussed with Dr. Jeff and agree with findings and plan as documented in the note. Any exceptions or clarifications are listed here: Patient is doing well, pain is controlled, afebrile. MRSA growing from wound culture as expected Vitals reviewed NAD RRR no mgr CTAB no wcr Abd soft NT ND+BS Ext: left arm in dressing and sling, no edema in legs Skin: right supraorbital/lateral eyebrow with 0.5 cm area of erythematous fluctuant mass with scab and no active drainage, significantly improved from yesterday 61 yo male with periorbital abscess/cellulitis and left upper arm MRSA abscess/ cellulitis s/p I&D. Has h/o MRSA infection in the past -Appreciate ortho management surgically -Received Zosyn and Vanco here 2 days and now will switch doxycycline to finish out 10 day course as an outpatient -continue pain management -CHG wipes for body Documented By: Mary Carlson (Mary Carlson MD)
[2016-06-23] MEDS ORDERED: DOXYCYCLINE HYCLATE 100 MG CAP PO SCH ×2 (15:30→21:00)
[2016-06-23 16:13] VITALS: BP 153/105; PULSE 76; TEMP 36.7; O2SAT 93
--- NOTE | 2016-06-23 17:46 | Pharmacy Progress Note ---
Pharmacy Progress Note Date of Service June 23, 2016. Progress Note Received call from outpatient pharmacy - they do not carry doxycycline * monohydrate*. I provided verbal consent to substitute with doxycycline *hyclate *. Spoke w Dr. Jeff who is aware.
[2016-06-24] MEDS ORDERED: VANCOMYCIN TROUGH ONE (09:30)
[2016-06-24 12:59] LABS: COD UR NEGATIVE NG/ML (CUTOFF=50); HYDROCOD UR NEGATIVE NG/ML (CUTOFF=50); HYDROMOR UR 2660 NG/ML (CUTOFF=50); HYDROXYETHYLFLURAZEPAM CONF NEGATIVE NG/ML (CUTOFF=50); HYDROXYMIDAZOLAM 1030 NG/ML (CUTOFF=50); HYDROXYTRIAZOLAM CONF NEGATIVE NG/ML (CUTOFF=50); MORPHINE UR 538 NG/ML (CUTOFF=50); NORHYDROCODONE CONF UR NEGATIVE NG/ML (CUTOFF=50); OXYMORPH UR NEGATIVE NG/ML (CUTOFF=50); TEMAZEPAM CONF NEGATIVE NG/ML (CUTOFF=50)
[2016-07-20] MEDS ORDERED: GABA-113 PO (08:16)
== END 2016-06-23 16:45 | disposition home health service (06) | DRG 580 ==
LOC: ENRESERVDT → ENRESERVTM → C.EDB 18:10 → C.MS2W 23:25 → EDBEDREQ 23:57 → OBSVTOIN 06-21 03:57
PROVIDERS: ADMIT Hospitalist; ATTEND Family Medicine
PROC: 0K9B0ZZ Drainage of Left Lower Arm and Wrist Muscle, Open Approach (ICD-10-PCS; principal; 2016-06-21 11:15)
DX: L03.114 Cellulitis of left upper limb (principal); L03.213 Periorbital cellulitis; L02.414 Cutaneous abscess of left upper limb; J45.909 Unspecified asthma, uncomplicated; I10 Essential (primary) hypertension; Z86.14 Personal history of Methicillin resistant Staphylococcus aureus infection; B95.62 Methicillin resistant Staphylococcus aureus infection as the cause of diseases classified elsewhere; J44.9 Chronic obstructive pulmonary disease, unspecified; F41.9 Anxiety disorder, unspecified; F32.9 Major depressive disorder, single episode, unspecified; R30.0 Dysuria; R35.0 Frequency of micturition; Z66 Do not resuscitate; Z82.49 Family history of ischemic heart disease and other diseases of the circulatory system; Z87.891 Personal history of nicotine dependence; G62.9 Polyneuropathy, unspecified; B18.2 Chronic viral hepatitis C; M54.9 Dorsalgia, unspecified

== ENCOUNTER 2016-09-16 21:58 | Emergency (ER) | payer OTHER ==
[~2016-09-16] VITALS: Ht 180.3 cm; Wt 120.0 kg
[~2016-09-16 21:58] MED LIST changes: -ACET-1311 PO; +ALBUAER INH; -ALPR1SUP6 INT UTER; -CAPS0.022 TOP; -CYCL10TA6 PO; +DLD/2 PO; -ENOX30IN4 SQ; +GABA-113 PO; +HYDR4TAB2 PO; -LIDO1CRE31 TOP; +LOSA1TAB38 PO; -NRN/300 PO; +OMEP20CA9 PO; -OMEP40CA41 PO; -VNTHFA/IN PO; -WLLSR150 PO
[2016-09-16 22:02] VITALS: TEMP 37.1; Ht 180.3 cm; Wt 120.0 kg
[2016-09-16] MEDS ORDERED: KETOROLAC TROMETHAMINE 60 MG/2 ML VIAL IM STA (22:50)
[2016-09-16 23:03] VITALS: BP 147/102; PULSE 91; O2SAT 97
--- NOTE | 2016-09-17 00:36 | EMERGENCY ROOM VISIT NOTE ---
ED Visit Note First contact with patient: 22:32 CHIEF COMPLAINT: knee pain HISTORY OF PRESENT ILLNESS: This 61-year-old male patient presents to the emergency department with complaint of right knee pain for the past several years. He states the pain is worse than normal tonight, prompting him to check into the emergency department. He has a long-standing history of arthritis and is scheduled for a right knee replacement in about [address] Godoy. The patient has not had new injury or trauma. He states that he has taken gabapentin at home without relief of symptoms. He will occasionally take Tylenol. He has not had swelling or fever. He is able to walk with a cane. No ankle, foot or hip pain. REVIEW OF SYSTEMS: A 6 system review of systems was completed with positives and pertinent negatives listed in the HPI. ALLERGIES: Sulfa MEDICATIONS: See EMR PMH: See EMR SOCIAL HISTORY: Lives with PHYSICAL EXAM: Vital Signs: Reviewed Nurse's notes, vital signs stable. GENERAL : White male, no acute distress, but appears in pain, well-developed, well- nourished. MENTAL STATUS: Alert, oriented to person place and time, and cooperative. MUSCULOSKELETAL: The right knee is not significantly swollen. There is no ecchymosis. There is no joint effusion present. The patient is tender laterally. There is no joint line tenderness. The patella does not subluxate. Range of motion is normal. Strength of the quads and hamstrings is 5/ 5. Alonso's is normal. Rudy's and Anterior Drawer tests are negative. There is no laxity with varus and valgus stressing. The foot and toes are warm and well-perfused. Dorsalis pedis pulse 2+. Sensation to pain and light touch is intact. Capillary refill less than 2 seconds. EMERGENCY DEPARTMENT COURSE: Physical exam and history were performed. Nursing notes and EMR were reviewed. The patient has reports of right knee pain chronically. He indicates to me that he is only taking gabapentin, however review of his [place] drug monitoring profile shows that he is on large doses of oral Dilaudid on a daily basis. The patient did not divulge this information to me, and additionally he is checking in to the department at the same time as his who is being seen by another provider. I do have concerns about the patient's visit as he was untruthful with his medications. He evidently does have some level of underlying disease as he has an upcoming surgery scheduled. The patient will be given 60 mg IM Toradol and referred back to orthopedics. We will need to monitor his visits in the future as he may be a good candidate for the treatment plan. The patient was invited back to the ER with any new, worsening, or concerning symptoms. Problem List Medical Problems: (1) Abdominal pain Status: Resolved (2) Asthma, Unspecified Status: Chronic (3) Hypertension Nos Status: Chronic (4) Rheumatoid Arthritis Status: Chronic Surgical Problems: (1) Carpal Tunnel Syndrome Status: Chronic Current/Historical Medications Scheduled Cholecalciferol (Vitamin D3), 2,000 INTER.UNIT PO QAM Duloxetine HCl (Duloxetine HCl), 60 MG PO QAM Gabapentin (Neurontin), 900 MG PO BID Losartan Potassium (Cozaar), 100 MG PO QAM Mometasone Furoate (Inhalation (Asmanex Twisthaler 120 Me), 1 PUFF INH DAILY Omeprazole (Prilosec), 40 MG PO QAM Propranolol (Inderal), 80 MG PO BID Tamsulosin Hcl (Flomax), 0.4 MG PO QPM Tiotropium [place] (Spiriva Handihaler), 1 CAP INH DAILY Scheduled PRN Albuterol Sulfate (Proventil Hfa), 2 PUFFS INH QID PRN for Shortness of Breath Diclofenac (Voltaren), 50 MG PO DAILY PRN for Pain/Inflamation Hydromorphone HCl (Hydromorphone HCl), 2 MG PO Q4H PRN for Pain Hydromorphone Hcl (Dilaudid), 4 MG PO Q4H PRN for Pain Hydroxyzine HCl (Hydroxyzine HCl), 10 MG PO BID PRN for Anxiety Allergies Coded Allergies: Sulfa Antibiotics (Verified Allergy, Unknown, RASH / ITCHINESS, 09/16/16) Vital Signs Date Time Temp Pulse Resp B/P (MAP) Pulse Ox O2 Delivery O2 Flow Rate FiO2 09/16/16 23:03 91 20 147/102 97 09/16/16 22:02 37.1 98 18 135/88 93 Room Air Medications Administered Medications (Trade) Dose Ordered Sig/Tash Route Start Time Stop Time Status Last Admin Dose Admin Ketorolac Tromethamine (Toradol Inj) 60 mg NOW STAT IM 09/16/16 22:50 09/16/16 22:51 DC 09/16/16 23:01 60 MG Departure Information Impression Primary Impression: Right knee pain Dispostion Home / Self-Care Condition GOOD Referrals Doc Morejon M.D. (PCP) No Doctor, Assigned George Godoy M.D. Forms HOME CARE DOCUMENTATION FORM, IMPORTANT VISIT INFORMATION Patient Instructions My [facility] Additional Instructions You were seen and evaluated today on an emergency basis only. This is not a substitute for, or an effort to provide, complete comprehensive medical care. It is not possible to recognize and treat all injuries or illnesses in a single emergency department visit. For this reason it is recommended that you followup with Orthopedics, Dr. Godoy's office, by telephone tomorrow to arrange an appropriate follow-up visit. Continue your at-home medications as prescribed. You are welcome to return to the emergency department anytime with new, worsening, or concerning symptoms.
== END 2016-09-16 23:00 | disposition home or self-care (01) ==
LOC: C.EDB 21:59
DX: M25.561 Pain in right knee (principal); M17.9 Osteoarthritis of knee, unspecified; I10 Essential (primary) hypertension; M06.9 Rheumatoid arthritis, unspecified; J45.909 Unspecified asthma, uncomplicated; Z98.890 Other specified postprocedural states; Z79.899 Other long term (current) drug therapy; Z88.2 Allergy status to sulfonamides

== ENCOUNTER 2016-10-12 07:09 | Inpatient (IN) | payer OTHER ==
[2016-07-20 08:18] VITALS: BMI 37.0
--- NOTE | 2016-09-01 09:49 | History and Physical ---
History & Physical Date & Time of Service: Sep 01, 2016 at 09:20 Chief Complaint: Right Knee Degenerative Joint Disease x several months Primary Care Physician: Doc Morejon M.D. History of Present Illness Source: patient Patient is a 61-year-old male patient, who has been treated at our orthopedic office for ongoing right knee pain. He is status post a left total knee arthroplasty in January 2016 and doing well with that. He continues to have right knee pain. He states that it has progressively worsened. He states that he has pain with daily activities and weightbearing. He has pain and Limitation with range of motion. He has limited range of motion due to pain in his right knee. He states that it bothers him on a daily basis. He has trouble controlling the amount of pain that he has from his right knee. Aggravating activities include walking, going up and down steps, sitting at rest for a long period of time. He has failed conservative treatment which has included corticosteroid injections, behavior modification, rysd-zjr-fluojlm oral analgesics, physical therapy, anti-inflammatories, and thermal modalities. Due to his success with the recent left total knee arthroplasty would like to proceed with a right total knee arthroplasty. He denies any new recent injuries or falls to his right knee. He denies any numbness or tingling of his right lower extremity. He states that he does use a walking stick or cane to assist with ambulation occasionally. His x-rays confirm end-stage osteoarthritis of his right knee and due to these findings and his progressively worsening symptoms he has been scheduled for an elective right total knee arthroplasty with Dr. Godoy on 09/07/2016 at the [facility]. Past Medical/Surgical History Medical Problems: (1) Abdominal pain Status: Resolved (2) Asthma, Unspecified Status: Chronic (3) Hypertension Nos Status: Chronic (4) Rheumatoid Arthritis Status: Chronic 5. History of hiatal hernia 6. GERD 7. Osteoarthritis 8. History of MRSA. 9. COPD-chronic asthma Surgical Problems: (1) Carpal Tunnel Syndrome - status post carpal tunnel release bilaterally Status: Chronic 2. Incision and drainage left arm abscess on 06/21/2016 3. Left total knee arthroplasty 02/11/2016 Family History Hypertension Social History Patient lives with his and stepson. He states that his stepson has been very problematic recently and he is trying to get him "out of his house". Smoking Status: Former Smoker Alcohol Use: none Drug Use: none Marital Status: Housing status: lives with family Occupational Status: retired Immunizations History of Influenza Vaccine: Yes Influenza Vaccine Date: Nov 16, 2010 History of Tetanus Vaccine?: Unknown History of Pneumococcal: No History of Hepatitis B Vaccine: Unknown Multi-Drug Resistant Organisms History of MDRO: Yes Type of MDRO: MRSA Allergies Coded Allergies: Sulfa Antibiotics (Verified Allergy, Unknown, RASH / ITCHINESS, 07/20/16) Home Medications Scheduled Cholecalciferol (Vitamin D3), 2,000 INTER.UNIT PO QAM Duloxetine HCl (Duloxetine HCl), 60 MG PO QAM Gabapentin (Neurontin), 900 MG PO BID Losartan Potassium (Cozaar), 100 MG PO QAM Mometasone Furoate (Inhalation (Asmanex Twisthaler 120 Me), 1 PUFF INH DAILY Omeprazole (Prilosec), 40 MG PO QAM Propranolol (Inderal), 80 MG PO BID Tamsulosin Hcl (Flomax), 0.4 MG PO QPM Tiotropium [place] (Spiriva Handihaler), 1 CAP INH DAILY Scheduled PRN Albuterol Sulfate (Proventil Hfa), 2 PUFFS INH QID PRN for Shortness of Breath Diclofenac (Voltaren), 50 MG PO DAILY PRN for Pain/Inflamation Hydromorphone HCl (Hydromorphone HCl), 2 MG PO Q4H PRN for Pain Hydromorphone Hcl (Dilaudid), 4 MG PO Q4H PRN for Pain Hydroxyzine HCl (Hydroxyzine HCl), 10 MG PO BID PRN for Anxiety Review of Systems Constitutional: No fever, No chills, No sweats, No weight loss Eyes: No redness ENT: No hearing loss, No sore throat, No tinnitus Respiratory: + cough, + wheezing, + shortness of breath (with activity), No sputum, No hemoptysis Cardiovascular: No chest pain, No orthopnea, No edema, No palpitations Abdomen: No pain, No nausea, No vomiting, No diarrhea, No constipation Musculoskeletal: + joint pain (right knee), No swelling, No calf pain Genitourinary - Male: No hematuria, No dysuria, No urinary frequency, No urinary urgency, No urinary retention, No urinary incontinence Neurologic: No memory loss, No numbness/tingling, No balance problems Psychiatric: + depression symptoms, + anxiety (patient states severe anxiety) Hematologic / Lymphatic: No abnormal bleeding/bruising, No clotting problems Integumentary: No rash, No itch, No new/changing skin lesions Allergic / Immunologic: No environmental allergies, No seasonal allergies, No food allergies Physical Exam General Appearance: WD/WN, no apparent distress Head: normocephalic, atraumatic Eyes: normal inspection, PERRL, EOMI, sclerae normal ENT: normal ENT inspection, hearing grossly normal, TMs normal, pharynx normal Neck: supple, no adenopathy, thyroid normal, no carotid bruits, trachea midline Respiratory/Chest: chest non-tender, lungs clear, normal breath sounds, no respiratory distress, no accessory muscle use Cardiovascular: regular rate, rhythm, no edema, no murmur, normal peripheral pulses Abdomen/GI: normal bowel sounds, non tender, soft Extremities/Musculoskelatal: no calf tenderness, normal capillary refill, no pedal edema, pelvis stable, + pertinent finding (right knee: No effusion, stable ligaments exam right knee, range of motion 0\\3\\115 with pain and points of flexion and extension. Point tenderness palpation medial joint line. Crepitation with range of motion in the patellofemoral joint. Extensor mechanism is intact. Rudy maneuver negative anterior and posterior drawer negative. Varus alignment. Walks with an antalgic gait today with no assistive device. Full hip and ankle range of motion without discomfort. Strength is 5 out of 5. Distal pulses 1+. Darleen refill is brisk) Neurologic/Psych: no motor/sensory deficits, alert, normal mood/affect, normal reflexes, oriented x 3 Skin: normal color, warm/dry, no rash Diagnostics Laboratory Results CBC: WBC-9.64, RBC-3.99, hemoglobin-11.6, hematocrit-34.8, platelets 201 PT\\INR -10.3\\1.0 PTT-36.8 BMP: Glucose-116, BUNs and-11, creatinine-1.10, sodium-141, potassium-4.1, chloride 106, calcium 8.8 Diagnostic Radiology Chest x-ray from 06/20/2016 CHEST 2 VIEWS ROUTINE CLINICAL HISTORY: Coughing black sputum. COMPARISON STUDY: Chest radiograph and chest CT March 12, 2016. FINDINGS: Mild lung hyperexpansion is noted. There is no pneumothorax or pleural effusion. Mild left basilar opacity favors atelectasis. Cardiomediastinal silhouette is stable. There is no evidence of pulmonary edema. No consolidation is identified to suggest pneumonia. IMPRESSION: No acute cardiopulmonary findings. X-ray of the patient's right knee reveal end-stage DJD with medial joint space narrowing, periarticular osteophytes, and sclerotic bone changes. There is no evidence of fracture dislocation or subluxation. Normal EKG Impression Assessment and Plan Assessment: End-stage osteoarthritis right knee Plan: Patient will be admitted on 09/07/2016 to undergo an elective right total knee arthroplasty with Dr. Godoy. His surgery will be performed at the [facility]. Bursa complications of surgery were explained to the patient and include but are not limited to infection, pain, bleeding, scarring, nerve and blood vessel damage, wound problems, weakness, stiffness, incomplete relief of symptoms, hardware failure, loosening, wear, fracture, blood clots, embolism, heart attack, stroke, and . All questions were answered and informed consent will be obtained the day of surgery. He will be admitted to the hospital postoperatively for at least a 2 night stay. He would like to return home with home health as he had previously done after his last surgery. He used [employer]. No preoperative medical clearance is necessary as we had received clearance from his previous surgery in January. His family physician Dr. Morejon has been notified and is aware of the upcoming procedure. He did not require preadmission testing prior to this procedure. We did obtain an new CBC, BMP, PT\\PTT. Operatively he was seen in consultation by infectious disease and was instructed to bathe with Hibiclens rinses following his normal shower each day and use mupirocin ointment in his nares twice daily the week prior to surgery. He states he has all this at home to be used as instructed. We will use IV daptomycin 400 mg preoperatively for surgical prophylaxis due to his history of MRSA. We will use Lovenox 30 mg twice a day 28 days for DVT prophylaxis. Pres[facility] for this was provided to the [facility] He will be given an albuterol nebulizer treatment prior to surgery. All questions were answered; he knows to call with any further problems or questions. Advanced Directives Existing Living Will: Yes Existing Power of [employer] Furnace T[employer]: Yes
--- NOTE | 2016-09-28 15:59 | HISTORY & PHYSICAL EXAMINATION ---
DATE OF ADMISSION: 10/12/2016 CHIEF COMPLAINT: Right knee pain. HISTORY OF PRESENT ILLNESS: The patient is a pleasant 61-year-old male patient of Dr. Godoy's from [facility] orthopedics who has continued right knee pain. The patient has failed conservative measures such as behavior modification, edrr-uvr-ekuylva oral analgesics, physical therapy, intra-articular joint injections and thermal modalities. He admits to pain on a daily basis with weightbearing activity and at rest. He states that his pain makes activities of daily living very difficult. He denies any recent injuries or falls. Denies any numbness or tingling distally. He has pain with range of motion and limitations due to the pain. He states that his knees bother him on a daily basis. He has trouble controlling the amount of pain that he has. Aggravating activities include walking, going up and down steps, sitting at rest for a long period of time. Due to his success with a recent left total knee arthroplasty. He would like to proceed with a right total knee arthroplasty. He denies any new recent injuries or falls to his right knee. He states he does use a walking stick or cane to assist with ambulation occasionally. His x-rays confirm end-stage osteoarthritis of his right knee and due to these findings and progressively worsening symptoms, he has been scheduled for an elective right total knee arthroplasty with Dr. Godoy on 10/12/2016 at the [facility]. PAST MEDICAL HISTORY: 1. Asthma. 2. Hypertension. 3. Rheumatoid arthritis. 4. Osteoarthritis. 5. Hiatal hernia. 6. Gastroesophageal reflux disease. 7. History of MRSA. 8. COPD. PAST SURGICAL HISTORY: 1. Carpal tunnel syndrome status post carpal tunnel release bilaterally. 2. Incision and drainage left arm abscess on 06/21/[address] Godoy. 3. Left total knee arthroplasty on 02/03/[address] Godoy. FAMILY HISTORY: Noncontributory. SOCIAL HISTORY: The patient lives at home in a safe environment. Denies any alcohol, tobacco or illegal drug use. He does live with his and stepson. He states that his stepson has been very "problematic" recently. He is trying to get him "out of his house". ALLERGIES: ALLERGIC TO SULFA ANTIBIOTICS WHICH CAUSES A RASH AND ITCHINESS. CURRENT MEDICATIONS: Include: 1. Albuterol 90 mcg inhaled as needed for wheezing. 2. Alprostadil 100,000 mcg transurethral suppositories. 3. Capsaicin 0.25 topical cream which he was instructed to stop 1 week before surgery. 4. Bupropion 100 mg tablet 150 mg p.o. b.i.d. 5. Cholecalciferol 1000 international units daily. 6. Cyclobenzaprine 10 mg 1 tab p.o. t.i.d. as needed for spasm. 7. Diclofenac sodium, he was instructed to stop this 1 week before surgery. 8. Duloxetine 60 mg 1 cap p.o. daily. 9. Gabapentin 300 mg 2 caps p.o. t.i.d. 10. Lidocaine 4% topical kit which she is in his groin. 11. Hydroxyzine hydrochloride 10 mg 1 tab p.o. b.i.d. as needed for anxiety. 12. Losartan 100 mg 1 tab p.o. daily. 13. Omeprazole 20 mg 2 tabs p.o. daily. 14. Mometasone 220 mcg inhaled inhalation aerosol powder 220 mcg inhaled b.i.d. 15. Propranolol 80 mg 1 tab p.o. b.i.d. 16. Trazodone 100 mg p.o. at bedtime. 17. Tiotropium 18 mcg inhaled capsule 1 capsule inhaled daily. 18. Mupirocin 2% nasal ointment 1 application each nostril b.i.d. x5 days prior to surgery. 19. Dilaudid 2mg and 4mg as needed for pain. REVIEW OF SYSTEMS: CONSTITUTIONAL: Denies any fevers, chills, sweats or weight loss. EYES: Denies any redness or blurry vision with his eyes. EARS, NOSE, THROAT: Denies any hearing loss, sore throat or tinnitus. RESPIRATORY: He has positive cough, wheezing and shortness of breath with activity. Denies any sputum or hemoptysis. CARDIOVASCULAR: No chest pain -- no orthopnea, no edema, no palpitations. ABDOMEN: No pain, no nausea, no vomiting, no diarrhea, no constipation. MUSCULOSKELETAL: Joint pain in his right knee as per HPI. No swelling, no calf pain. GENITOURINARY: Male. No hematuria, no dysuria, no urinary frequency. No urinary urgency, no urinary retention. No urinary incontinence. NEUROLOGIC: No memory loss. No numbness or tingling. No balance problems. PSYCHIATRIC: Is positive for depression symptoms and anxiety. He states his anxiety is very severe. HEMATOLOGIC AND LYMPHATIC: No abnormal bleeding or bruising. No clotting problems. INTEGUMENTARY: No rash. No itching. No new or change in skin lesions. IMMUNOLOGIC: No environmental allergies, no seasonal allergies and no food allergies. PHYSICAL EXAMINATION: GENERAL: He is alert and oriented x3. He is in no acute distress. Well-dressed, well-nourished male, normal mood and affect. HEAD, EYES, EARS, NOSE, AND THROAT: Atraumatic, normocephalic. EYES: Normal inspection. Pupils are round and reactive to light. Extraocular movements intact. Sclerae are normal. EARS, NOSE, THROAT: Normal. ENT inspection hearing grossly normal. TMs normal. Pharynx normal. NECK: Supple, no adenopathy. Thyroid normal, no carotid bruits. Trachea midline. RESPIRATORY: Chest nontender. LUNGS: Clear. Normal breath sounds. No respiratory distress. No accessory muscle use. CARDIOVASCULAR EXAMINATION: Regular rate and rhythm. No edema, no murmur. Normal peripheral pulses. ABDOMEN OR GASTROINTESTINAL: Normal bowel sounds, nontender, soft. EXTREMITIES OR MUSCULOSKELETAL: No calf tenderness. Normal capillary refill. No pedal edema. PELVIS: Stable. RIGHT KNEE: Reveals no effusion, stable ligamentous exam. Right knee range of motion 0/3/115 with with pain and points of flexion and extension. Point tenderness with palpation medial joint line, crepitation with range of motion in the patellofemoral joint. Extensor mechanism is intact. Rudy maneuver negative. Anterior and posterior drawer negative varus alignment. Walks with an antalgic gait today with no assistive device, full hip and ankle range of motion without discomfort. Strength is 5/5. Distal pulses are 1+. Capillary refill is brisk. NEUROLOGIC/PSYCHOLOGIC: No motor or sensory deficits, alert, normal mood and affect. Normal reflexes, oriented x3. SKIN: Normal color, warm, dry. No rash. LABORATORY DATA: CBC: White blood cell is 9.64, red blood cell 3.99, hemoglobin 11.6, hematocrit 34.8, platelets 201. PT/INR 10.3/1.0, PTT 36.8. BMP: Glucose is 116, BUN 11, creatinine 1.10. Sodium 141, potassium 4.1, chloride 106, calcium 8.8. DIAGNOSTIC RADIOLOGY: Chest x-ray revealed no acute cardiopulmonary findings. X-rays of the patient's right knee reveal end-stage DJD with medial joint space narrowing, periarticular osteophytes, and sclerotic bone change. There is no evidence of fracture, dislocation, or subluxation. EKG completed and was normal IMPRESSION: End-stage osteoarthritis, right knee. PLAN: The patient will be admitted on 10/12/2016 to undergo an elective right total knee arthroplasty with Dr. Godoy. His surgery will be performed at the [facility]. Risks and complications of surgery were explained to the patient and include but are not limited to infection, pain, bleeding, scarring, nerve and blood vessel damage, wound problems, weakness, stiffness, incomplete relief of symptoms, hardware failure, loosening, wear, fracture, blood clots, embolisms, heart attack, stroke and . All questions were answered and informed consent will be obtained the day of surgery. He will be admitted to the hospital postoperatively for at least 2 night stay. He would like to return home with home health as he has previously done after his last surgery use [email or web address]. We did obtain preoperative medical clearance from his family physician, Dr. Morejon due to his elevated fasting glucose of 200. He has been cleared for surgery. He did not require preadmission testing prior to surgery. Preoperatively he was also seen in consultation by infectious disease and was instructed to bathe with Hibiclens rinses following his normal shower each day and use mupirocin ointment in his nares twice daily the week prior to surgery. He states that he is all this at home to be used as instructed. We will use IV daptomycin 400 mg preoperatively for surgical prophylaxis due to his history of MRSA. We will use Lovenox 30 mg twice a day x28 days for DVT prophylaxis. Prescription for this was provided to the patient beforehand to obtain through the [place]. He will be given an albuterol nebulizer treatment prior to surgery. All questions were answered and he knows to call with any further problems or questions. [facility]ALTH[facility]
[2016-10-12] VITALS (9 sets, daily range): BP systolic 119–161; BP diastolic 74–104; PULSE 85–108; TEMP 36.4–36.9; O2SAT 93–98; BMI 37.0
[~2016-10-12] VITALS: Ht 180.3 cm; Wt 120.5 kg
[2016-10-12] MEDS: TRANEXAMIC ACID INJ 1,000 MG in SODIUM CHLORIDE 0.9% 100ML 100 ML IV SCH ×2 (06:30→09:43)
[~2016-10-12 07:09] MED LIST changes: +ALBUTEROL 0.083% NEBU SOLN 3 ML VIAL INH ONE; +BUPIVACAINE 0.25% 30 ML VIAL ONE; +BUPIVACAINE 0.5 % 5 MG/1 ML PF 10ML VIAL ONE; +CeleBREX 200 MG CAP PO SCH; +DAPTOmycin IV 500 MG in SODIUM CHLORIDE 0.9% 50ML 50 ML IV SCH; +LACTATED RINGER'S 1000ML 1,000 ML IV SCH; +LACTATED RINGER'S 1000ML 500 ML IV ONE; +LACTATED RINGER'S 1000ML IV SCH; +ROPIVACAINE 5MG/ML 30 ML 150 MG, BUPIVACAINE/EPINEPHR 0.5% MPF 30 ML, KETOROLAC TROMETH... INFIL SCH; +TRANEXAMIC ACID INJ 1,000 MG in SODIUM CHLORIDE 0.9% 100ML 100 ML IV SCH; +[UNRECOGNIZED DRUG - REMARK] SCH
[2016-10-12] MEDS ORDERED: MIDAZOLAM HCL 1 MG/ML 2ML VIAL ONE (07:52)
[2016-10-12] MEDS ORDERED: FENTANYL CITRATE INJ 50 MCG/1 ML 2 ML VIAL ONE ×2 (07:52→13:25)
[2016-10-12] MEDS: DEXAMETHASONE 4 MG TAB PO SCH ×2 (08:11→16:14)
[2016-10-12] MEDS: OXYCODONE HCL 10 MG TABCR (OXYCONTIN) PO SCH ×3 (08:12→21:05)
[2016-10-12] MEDS: FAMOTIDINE 20 MG TAB PO SCH ×2 (08:12→16:15)
[2016-10-12] MEDS: TRAMADOL HCL 50 MG TAB PO SCH ×2 (08:12→16:15)
[2016-10-12] MEDS: ACETAMINOPHEN 500 MG TAB PO SCH ×2 (08:14→16:15)
[2016-10-12] MEDS ORDERED: EpHEDrine SULFATE INJ 50 MG/ML AMP IV PRN (08:15)
[2016-10-12] MEDS ORDERED: FENTANYL CITRATE INJ 50 MCG/1 ML 2 ML VIAL IV PRN (08:15)
[2016-10-12] MEDS ORDERED: ATROPINE SULFATE 0.1 MG/ML 5ML SYR IV PRN (08:15)
[2016-10-12] MEDS ORDERED: HYDROmorphone INJ 1 MG/ML SYR IV PRN (08:15)
[2016-10-12] MEDS ORDERED: ONDANSETRON INJ 2 MG/ML 2 ML VIAL IV PRN ×2 (08:15→13:15)
[2016-10-12] MEDS: CLONIDINE HCL 0.1 MG/24 HR TRANSDERM SYS TD SCH ×2 (08:17→16:15)
[2016-10-12] MEDS ORDERED: PROPOFOL IV EMULSION 10 MG/ML 20 ML VIAL IV ONE (09:26)
--- NOTE | 2016-10-12 09:49 | History & Physical Bridge Note ---
H&P Re-Evaluation Bridge Note: I have examined the patient, reviewed the History & Physical and in the interval since the performance of the History & Physical I have noted the following changes of clinical significance: No changes noted
[2016-10-12] MEDS ORDERED: BACITRACIN 50000 UNIT VIAL ONE (10:04)
[2016-10-12] MEDS ORDERED: ORTHO JOINT ANESTHETIC ONE (10:04)
[2016-10-12] MEDS ORDERED: POVIDONE-IODINE OP SOLN 30 ML BTL ONE (10:05)
[2016-10-12] MEDS ORDERED: VANCOMYCIN HCL 1000MG/20ML VIAL ONE (10:06)
[2016-10-12] MEDS ORDERED: ONDANSETRON INJ 2 MG/ML 2 ML VIAL ONE (10:19)
[2016-10-12] MEDS: DAPTOmycin IV 500 MG in SODIUM CHLORIDE 0.9% 50ML 50 ML IV SCH (10:21)
[2016-10-12] MEDS ORDERED: PROMETHAZINE HCL INJ 25 MG in SODIUM CHLORIDE 0.9% 50ML 50 ML IV STA (10:42)
[2016-10-12] MEDS ORDERED: hydrOXYzine HCL 10 MG TAB PO PRN (13:15)
[2016-10-12] MEDS ORDERED: MAGNESIUM HYDROXIDE SUSP 30 ML UDC PO PRN (13:15)
[2016-10-12] MEDS ORDERED: ACETAMINOPHEN 325 MG TAB PO PRN (13:15)
[2016-10-12] MEDS ORDERED: BISACODYL 10 MG SUPP PR PRN (13:15)
[2016-10-12] MEDS ORDERED: METOCLOPRAMIDE HCL INJ 5 MG/ML 2 ML VIAL IV PRN (13:15)
[2016-10-12] MEDS ORDERED: DiphenhydrAMINE HCL 50 MG/ML VIAL IV PRN (13:15)
[2016-10-12] MEDS ORDERED: SOD PHOSPHATE/SOD BIPHOSPHATE ENEMA 132 ML BTL PR PRN (13:15)
--- NOTE | 2016-10-12 13:30 | [facility] Operative Report ---
Operative Report Operative Date Oct 12, 2016. Pre-Operative Diagnosis End-Stage Osteoarthritis of Right Knee Post-Operative Diagnosis Same as preoperative Procedure(s) Performed Right Total Knee Arthroplasty Surgeon Dr. George Godoy Case Loader Operator Surgeon(s) Faina King PA-C Estimated Blood Loss 50ml Findings Date of compartment osteoarthritis with multiple loose bodies Specimens A.) Right Knee Bone and Tissue Drains none Anesthesia spinal with sedation a peripheral nerve block Complication(s) None Disposition Recovery Room / PACU Indications Patient's a 61-year-old male with end-stage arthritis of his right knee. He has a history of MRSA which is been worked up and treated preoperatively. Symptoms were refractory to nonsurgical methods of management. He is at successful surgery on his other knee. Description of Procedure Patient was identified as Zan Reed. He identified the operative site as the right knee. I marked with my initials. A preoperative surgical timeout was performed. He received a preoperative dose of IV daptomycin. He is positioned supine on the operating room table. A spinal anesthetic with sedation and peripheral nerve block were given. DVT prophylaxis intraoperatively with foot pumps postoperatively with Lovenox. Examination under anesthesia revealed range of motion 0/5/120. He had 1+ MCL laxity with a moderate effusion. A bump was placed under the right hip and right calf tourniquet was applied of the right leg. Limb was prepped and draped in the usual sterile fashion. A midline incision was made followed by medial parapatellar arthrotomy. This was done after exsanguinating the limb with the Esmarch and inflating the tourniquet to 250 mmHg. Loose bodies were encountered and removed. The retropatellar fat pad was resected. It was scarring possibly related to prior surgery. An extensile medial release was performed back around the semimembranosus. Marginal osteophytes are noted in all compartments the knee. There were grade 4 changes of the medial compartment of the knee with of wear of the medial tibia. Tissue on the anterior aspect the distal femur was resected. The cruciate ligaments were removed. The medial meniscus was deficient and it was removed. The lateral meniscus and lateral compartment relatively normal. There are grade 2 changes and 3 changes of the patella and trochlea. The tibia was subluxated. An excellent intramedullary alignment edu was inserted. She was set to resect 10 off of the high side and to off of the medial side. This was adjusted with a 2 of varus valgus cutting block to correct of a varus cut. This was then rechecked with the extra medullary alignment edu. The cut was made and the tibia sized to a 5. A helicopter pilot instructor hole was drilled in the distal femur the alignment edu was inserted. The guide was pinned in place and set to cut 6 valgus right knee 13 mm thick cut. After the cut was made a epicondylar axis was marked. The femur was sized to a 4 and the pins were drilled for external rotation. Extension gap was symmetric 12.5. The size 4 anterior down cutting block was applied and the cuts were made with a minor notch and the anterior femur. The collateral ligaments were protected. Loose bodies were encountered in the medial gutter and posterior compartments. Osteophytes and back the knee were removed. The flexion gap was symmetric 12.5. Box cutting guide was applied lateralizing the box cut was made. This was followed by application of the size 4 femoral trial. The tibia was repaired was prepared using the drill and punch and the trial tibia with a 12.5 spacer was applied. The patella measured 24 mm in thickness. The guide was set to preserve 14 mm of bone. The cutting guide was applied. Cut was made and the residual was 14 mm. A 41 mm patella was selected pad was distal eyes lateralized and the lug holes were drilled. Positive patellar thickness at the end of the case was 25 mm. Patellar tracking was off at this time but was corrected once the tourniquet was down with no hands technique. The laxity showed no pathological laxity in full extension there was no flexion contracture and no pathological laxity in 90 flexion. There is 1+ MCL laxity and trace MCL laxity at about 30-40 knee flexion. Components removed canals were plugged or so joint mix was injected throughout the knee at various times in the case. Copious lavage was performed. Hard bone on the medial femoral condyle was drilled. Osteophytes under the MCL were removed. Osteophytes on the posterior medial aspect of the knee were removed. This area of soft bone likely from osteonecrosis on the anterior medial tibial plateau was debrided back to solid bone and eventually filled with cement. The tibial component was lateralized. 4 g of vancomycin powder were applied to 2 bags of Simplex P cement. It was mixed for 50 seconds indwelling a doughy state of the femur tibia and patella were cemented into place of the knee was held in full extension with a patellar clamp. After the cement hardened the tourniquet was let down after 100 minutes of inflation there was minimal bleeding. Meticulous hemostasis was performed. Betadine lavage was performed. The torso joint mix was applied. Gal[place] assisted flexion with the extensor mechanism closed with 120. The knee had the after mentioned satisfactory laxity profile and the final 12.5 mm thick polyethylene insert was applied. The knee was copiously irrigated. The knee was inspected for extraneous cement which was removed as encountered. The extensor mechanism was closed with #2 FiberWire above the equator of the patella and running and interrupted #1 Vicryl below. The skin was closed with 0 and 2-0 Vicryl pan on the skin and a Silverlon dressing. Patient is awake from anesthesia without difficulty and taken to recovery room in stable condition. There were no complications. Specimens were resected bone. Blood loss was approximately 50 mL. At the conclusion operation there was no unavailable to speak to. Patient will be rehabilitated according to the total knee replacement protocol. The components inserted were a 41 patella the 12th 5 posterior stabilized rotating platform polyethylene insert a size 5 mobile bearing keeled tibial tray and a size 4 posterior stabilized right femoral component. These were J[employer]J PFC Sigma components I attest to the content of the Intraoperative Record and any orders documented therein. Any exceptions are noted below.
--- NOTE | 2016-10-12 13:31 | [facility] Operative Report ---
Operative Report Operative Date Oct 12, 2016. Pre-Operative Diagnosis End-Stage Osteoarthritis of Right Knee Post-Operative Diagnosis Same as preoperative Procedure(s) Performed Right Total Knee Arthroplasty Surgeon Dr. George Godoy Director Reactor Projects Surgeon(s) Faina King PA-C Estimated Blood Loss 50ml Findings DJD right knee Specimens A.) Right Knee Bone and Tissue Drains none Anesthesia spinal anesthesia with peripheral nerve block Disposition Recovery Room / PACU (stable) Indications Patient is a 61-year-old male who has presented to our office with complaints of ongoing right knee pain has been bothering him for the last year or more. He has undergone conservative treatment which has consisted of Tylenol, NSAIDs, therapy, corticosteroid injections and viscous supplementation. He has failed all conservative treatment. He continues to have pain on a daily basis and with activities of daily living. It interferes with things that he likes to do. He did x-rays which confirm end-stage degenerative joint disease of his right knee. Due to these findings and his symptoms surgical intervention was recommended. He agreed to proceed. Risks and complications were discussed. Informed consent was obtained. Description of Procedure Patient was taken to the operating room and placed under IV sedation with spinal and peripheral anesthesia. He was given 400 mg of IV daptomycin preoperatively due to his history of MRSA. Time out was performed. He was prepped and draped in routine sterile fashion. I was present in the entire case , please see Dr. Godoy's operative report for further detail. He was awakened and transferred to the recovery room in stable condition. I attest to the content of the Intraoperative Record and any orders documented therein. Any exceptions are noted below.
--- NOTE | 2016-10-12 13:54 | Anesthesiology Progress Note ---
Anesthesia Post Op Note Date & Time Oct 12, 2016 at 13:54 Vital Signs Pain Intensity: 8.0 Vital Signs Past 12 Hours Date Time Temp Pulse Resp B/P (MAP) Pulse Ox O2 Delivery O2 Flow Rate FiO2 10/12/16 13:35 85 18 125/86 95 Nasal Cannula 2 10/12/16 13:25 77 19 140/80 97 Nasal Cannula 2 10/12/16 13:17 36.2 74 20 135/84 100 Oxymask 10 10/12/16 08:27 36.9 90 18 132/99 96 Room Air Notes Mental Status: alert / awake / arousable, participated in evaluation Pt Amnestic to Procedure: Yes Nausea / Vomiting: adequately controlled Pain: adequately controlled Airway Patency, RR, SpO2: stable & adequate BP & HR: stable & adequate Hydration State: stable & adequate Neuraxial Anesthesia: was administered, sensory block is resolving Anesthetic Complications: no major complications apparent
--- NOTE | 2016-10-12 13:59 | DIAGNOSTIC IMAGING REPORT ---
RIGHT KNEE 1 OR 2 VIEWS ROUTINE CLINICAL HISTORY: Postoperative evaluation. COMPARISON: Right knee radiographs May 17, 2016. FINDINGS: Alignment of the total right knee arthroplasty is anatomic. There is no fracture or unexpected radiopaque foreign body. There are skin pan. IMPRESSION: Expected findings following total right knee arthroplasty. Electronically signed by: Alberto Suarez M.D. 10/12/2016 1:58 PM Dictated Date/Time: 10/12/2016 1:57 PM
[2016-10-12] MEDS ORDERED: MoRPHine SULFATE 4 MG/ML 1 ML CARP\\VIAL ONE (14:51)
[2016-10-12] MEDS ORDERED: PHARMACY GLYCEMIC MGMT CONSULT PRN (14:57)
[2016-10-12] MEDS ORDERED: GLUCAGON FOR INJ 1 MG VIAL SQ PRN (15:15)
[2016-10-12] MEDS ORDERED: GLUCOSE 40% GEL 15 GM TUBE PO PRN (15:15)
[2016-10-12] MEDS ORDERED: GLUCOSE 10 TABS/TUBE PO PRN (15:15)
[2016-10-12] MEDS ORDERED: DEXTROSE 50% 50 ML SYR IV PRN (15:15)
--- NOTE | 2016-10-12 15:36 | Pharmacy Progress Note ---
Glycemic Control Intl Consult Date of Service Oct 12, 2016. Scope Glycemic Pharmacist consulted by CODY Lester on 10/12/16 for glycemic control and to write orders per [facility] inpatient glycemic control protocol. Of note, medicine is aware we are managing glycemic control. Objective Weight (Kilograms): 120.450 Accuchecks BSG (last 24hrs): Test 10/12/16 07:56 Bedside Glucose 165 mg/dl (70-99) Recent Pertinent Medications Outpatient Anti-diabetic Regimen: * n/a - no diagnosis of diabetes in H&P but A1c indicates otherwise * A1c = 6.7 % 06/21/16 Risk Factors for Insulin Resistance: * Steroids: preop Decadron 8 mg po x 1 in addition to Decadron in the ortho mixture given intraoperatively * Recent Surgery: POD #0 s/p R TKA * Diet: Regular diet Assessment & Plan ASSESSMENT: * 61 y/o male admitted for R TKA with no reported history of diabetes, but most recent A1c indicates that patient has diabetes * With patient receiving preop Decadron and an A1c indicative of diabetes, this patient will most likely require insulin for the next 24 hours or so * Will plan to start with correctional/prandial insulin with dinner and depending on how his BSGs look from this, will give a dose of Lantus tonight ( based on a stress level of 2 but giving 1/2 of this). Will also add an overnight check to provide additional coverage if needed. * ADA & AACE recommend a goal blood sugar range 140-180 mg/dl for the majority of critically ill & non-critically ill patients. However, more stringent targets may be selected in individual cases. Will utilize more stringent goal of 110-140mg/dl based on patient age & comorbidities. Additionally, tighter glycemic control is warranted to facilitate wound/infection healing. PLAN FOR INPATIENT GLYCEMIC CONTROL: * Basal insulin with LANTUS 20 units (~0.15 units/kg) x 1 tonight if BSG > 140 after Novolog with dinner * Correctional Insulin with NOVOLOG per scale ACHS + 0200 accucheck * Goal Range: Low 110 mg/dL - High 140 mg/dL * Correction Factor: 20 mg/dL/unit * Nutritional / Prandial insulin per carb ratio of 1 unit per 7 grams CHO consumed * Diet has been changed to type 2 diabetes Thank you.
[2016-10-12] MEDS ORDERED: HydrALAZINE HCL 20 MG/ML VIAL IV. PRN (15:45)
--- NOTE | 2016-10-12 15:45 | Medical Consult ---
Consultation Date of Consultation: Oct 12, 2016. Attending Physician: George Godoy M.D. Reason for Consultation: Medical management History of Present Illness This is a 61 y/o male with a history of HTN, COPD, DM II, anxiety, BPH, and GERD who presents s/p right TKA with Dr. Godoy on 10/12 for medical management. Patient complains of pain in the right knee. He denies any margaret numbness or tingling in his lower extremities. The patient has already voided twice postoperatively without any issues. He is tolerating a PO diet. The patient denies passing any gas or having a bowel movement yet. The patient denies fevers, chills, sweats, chest pain, palpitations, claudication, cough, wheezing, shortness of breath, nausea, vomiting, abdominal pain, dysuria, hematuria, urinary retention, paralysis, weakness, numbness and tingling. Past Medical/Surgical History Medical Problems: (1) Asthma, Unspecified Status: Chronic (2) Cellulitis Status: Acute (3) Cellulitis of left upper arm Status: Acute (4) Contusion of multiple sites Status: Acute (5) Fall Status: Acute (6) Hypertension Nos Status: Chronic (7) Hypotension Status: Acute (8) Left knee pain Status: Acute (9) Occluded PICC line Status: Acute (10) Postoperative hematoma Status: Acute (11) Postoperative pain of left knee Status: Acute (12) Rheumatoid Arthritis Status: Chronic (13) Right knee pain Status: Acute (14) Syncope Status: Acute Surgical Problems: (1) Carpal Tunnel Syndrome Status: Chronic Social History Problems: (1) Status post PICC central line placement Status: Acute Family History COPD (chronic obstructive pulmonary disease) Hypertension Myocardial infarction Stroke Social History Smoking Status: Former Smoker (quit 25 years ago) Smokeless Tobacco Use: No Alcohol Use: none Drug Use: none Marital Status: Housing Status: lives with family Occupation Status: retired Allergies Coded Allergies: Sulfa Antibiotics (Verified Allergy, Unknown, RASH / ITCHINESS, 10/12/16) Current Inpatient Medications Current Inpatient Medications Medications (Trade) Dose Ordered Sig/Tash Route Start Time Stop Time Status Last Admin Dose Admin Daptomycin 500 mg/ Sodium Chloride 60 ml @ 100 mls/hr PREOP IV 10/12/16 06:00 10/12/16 18:00 10/12/16 10:21 100 MLS/HR Lactated Ringer's 1,000 ml @ 60 mls/hr [id number] IV 10/12/16 06:00 10/12/16 22:39 Acetaminophen (Tylenol Tab) 1,000 mg PREOP PO 10/12/16 06:00 10/12/16 18:00 10/12/16 08:14 1,000 MG Dexamethasone (Decadron Tab) 8 mg PREOP PO 10/12/16 06:00 10/12/16 18:00 10/12/16 08:11 8 MG Famotidine (Pepcid Tab) 20 mg PREOP PO 10/12/16 06:00 10/12/16 18:00 10/12/16 08:12 20 MG Oxycodone HCl (Oxycontin Tab) 10 mg PREOP PO 10/12/16 06:00 10/12/16 18:00 10/12/16 08:12 10 MG Clonidine HCl ([id number] 0.1mg/24hr Patch) 1 patch PREOP TD 10/12/16 06:00 10/12/16 18:00 10/12/16 08:17 1 PATCH Miscellaneous (Remove Clonidine Patch) 1 ea Q72H N/A 10/15/16 06:00 10/15/16 06:01 Tranexamic Acid 1000 mg/Sodium Chloride 110 ml @ 660 mls/hr TODAY@06,0630 IV 10/12/16 06:00 10/12/16 18:00 10/12/16 09:43 660 MLS/HR Tramadol HCl (Ultram Tab) 50 mg PREOP PO 10/12/16 06:00 10/12/16 18:00 10/12/16 08:12 50 MG Lactated Ringer's 1,000 ml @ 15 mls/hr Q24H IV 10/12/16 06:00 10/13/16 05:59 Sodium Chloride 1,000 ml @ 100 mls/hr Q10H IV 10/12/16 13:15 10/13/16 13:14 Ketorolac Tromethamine (Toradol Inj) 30 mg Q6H IV. 10/12/16 18:00 10/13/16 12:01 Oxycodone HCl (Roxicodone Immediate Rel Tab) 1 TABLET FOR PAIN RATING... Q4H PRN PO 10/12/16 13:15 10/26/16 13:14 Acetaminophen (Tylenol Tab) 650 mg Q6H PRN PO 10/12/16 13:15 11/11/16 13:14 Magnesium Hydroxide (Milk Of Magnesia Susp) 30 ml Q6H PRN PO 10/12/16 13:15 11/11/16 13:14 Bisacodyl (Dulcolax Supp) 10 mg DAILY PRN ME 10/12/16 13:15 11/11/16 13:14 Sodium Biphosphate/ Sodium Phosphate (Fleet Enema) 132 ml DAILY PRN ME 10/12/16 13:15 11/11/16 13:14 Senna (Senokot Tab) 17.2 mg HS PO 10/12/16 21:00 11/11/16 20:59 Docusate Sodium (coLACE CAP) 100 mg BID PO 10/12/16 21:00 11/11/16 20:59 Diphenhydramine HCl (Benadryl Inj) 25 mg Q8H PRN IV 10/12/16 13:15 11/11/16 13:14 Ondansetron HCl (Zofran Inj) 4 mg Q6H PRN IV 10/12/16 13:15 11/11/16 13:14 Metoclopramide HCl (Reglan Inj) 10 mg Q6H PRN IV 10/12/16 13:15 11/11/16 13:14 Pantoprazole Sodium (Protonix Tab) 40 mg QAM PO 10/13/16 09:00 11/12/16 08:59 Tramadol HCl (Ultram Tab) 1 tablet for pain rating... Q4H PRN PO 10/12/16 13:15 11/11/16 13:14 Enoxaparin Sodium (Lovenox Inj) 30 mg Q12H SQ 10/13/16 09:00 11/12/16 08:59 Albuterol (Ventolin Hfa Inhaler) 2 puffs QID PRN INH 10/12/16 13:15 11/11/16 13:14 Cholecalciferol (Vitamin D Tab) 2,000 inter.unit QAM PO 10/13/16 09:00 11/12/16 08:59 Duloxetine HCl (Cymbalta Cap) 60 mg QAM PO 10/13/16 09:00 11/12/16 08:59 Gabapentin (Neurontin Cap) 900 mg BID PO 10/12/16 21:00 11/11/16 20:59 Hydroxyzine HCl (Vistaril Tab) 10 mg BID PRN PO 10/12/16 13:15 11/11/16 13:14 Losartan Potassium (coZAAR TAB) 100 mg QAM PO 10/13/16 09:00 11/12/16 08:59 Future Hold Mometasone Furoate (Asmanex 220MCG Inh) 1 puff DAILY INH 10/13/16 09:00 11/12/16 08:59 Propranolol HCl (Inderal Tab) 80 mg BID PO 10/12/16 21:00 11/11/16 20:59 Tamsulosin HCl (Flomax Cap) 0.4 mg QPM PO 10/12/16 21:00 11/11/16 20:59 Miscellaneous Information (Consult Glycemic Management Pharmacy) 1 ea UD PRN N/A 10/12/16 14:57 11/11/16 14:56 Oxycodone HCl (Oxycontin Tab) 10 mg Q12H PO 10/12/16 21:00 10/26/16 20:59 Morphine Sulfate (MoRPHine SULFATE INJ) 2 mg Q1H PRN IV 10/12/16 13:30 10/26/16 13:29 Morphine Sulfate (MoRPHine SULFATE INJ) 4 mg Q1H PRN IV 10/12/16 15:00 10/26/16 14:59 Insulin Aspart (novoLOG ASPART) SLIDING SCALE ACHS SC 10/12/16 17:15 11/11/16 17:14 Glucose (Glucose 40% Gel) 15-30 GRAMS 15 GRAMS... UD PRN PO 10/12/16 15:15 11/11/16 15:14 Glucose (Glucose Chew Tab) 4-8 Tablets 4 Tabl... UD PRN PO 10/12/16 15:15 11/11/16 15:14 Dextrose (Dextrose 50% 50ML Syringe) 25-50ML OF 50% DW IV FOR... UD PRN IV 10/12/16 15:15 11/11/16 15:14 Glucagon (Glucagon Inj) 1 mg UD PRN SQ 10/12/16 15:15 11/11/16 15:14 Insulin Glargine (Lantus Per Unit) SEE PROTOCOL TEXT HS ONCE SQ 10/12/16 21:00 10/12/16 21:01 Insulin Aspart (novoLOG ASPART) SLIDING SCALE 0200 ONCE SC 10/13/16 02:00 10/13/16 02:01 Review of Systems See HPI for pertinent positives and negatives. All other systems reviewed and negative. Physical Exam Date Time Temp Pulse Resp B/P (MAP) Pulse Ox O2 Delivery O2 Flow Rate FiO2 10/12/16 15:23 106 18 129/81 (97) 10/12/16 14:54 92 18 144/90 (108) 10/12/16 14:40 98 Nasal Cannula 2.0 10/12/16 14:15 36.4 85 18 128/80 (96) 98 Nasal Cannula 2.0 10/12/16 14:15 98 Room Air 2.0 10/12/16 13:55 36.5 86 20 123/78 95 Nasal Cannula 2 10/12/16 13:45 83 17 118/77 96 Nasal Cannula 2 10/12/16 13:35 85 18 125/86 95 Nasal Cannula 2 10/12/16 13:25 77 19 140/80 97 Nasal Cannula 2 10/12/16 13:17 36.2 74 20 135/84 100 Oxymask 10 10/12/16 08:27 36.9 90 18 132/99 96 Room Air General appearance: +Obese. Well-developed, well-nourished, no apparent distress Head: Normocephalic, atraumatic Eyes: Normal inspection, PERRL, EOMI ENT: Normal ENT inspection, hearing grossly normal, pharynx normal Neck: Supple, no JVD, trachea midline Respiratory/Chest: Lungs clear to auscultation, normal breath sounds, no respiratory distress Cardiovascular: Regular rate & rhythm, no gallop, no murmur Abdomen/GI: +Epigastric area TTP. Pt states this is chronic and that he has a hiatal hernia. Normal bowel sounds, soft Extremities/Musculoskeletal: +RLE wrapped in mihai bandage. Decreased sensation RLE. Cap refill normal, pulses intact. No calf tenderness, no pedal edema Neurological/Psych: Alert, normal mood/affect, oriented x 3 Skin: Normal color, warm/dry, no rash Laboratory Results Last 24 Hours Test 10/12/16 07:56 10/12/16 15:24 Bedside Glucose 165 mg/dl Assessment & Plan 61 y/o male with a history of HTN, COPD, DM II, anxiety, BPH, and GERD who presents s/p right TKA with Dr. Godoy on 10/12 for medical management. S/p right TKA--POD #0 -Pain management, DVT prophylaxis, and PT/OT as per primary team HTN--stable -Hold losartan until renal function checked/stable -Continue propranolol 80 mg PO BID -Cover with hydralazine 10 mg IV q6h prn SBP >180 COPD--stable -Continue mometasone 1 puff inh qd and albuterol prn DM II--last HgbA1c checked 06/21/16 was 6.7. Pt not currently on medications for this -Insulin sliding scale -Check BSGs q ac and qhs -Recheck HgbA1c -Pharmacy consulted for glycemic control by primary team Anxiety -Continue hydroxyzine 10 mg PO BID prn BPH -Continue Flomax 0.4 mg PO qhs GERD -Prilosec converted to Protonix Code Status -Level I, FULL RESUSCITATION STATUS Thank you for this consultation. We will continue to follow. Attending Addendum: I have physically seen and examined this patient, have directed the physician assistants medical activities, and agree with the H&P as noted above with the following exceptions as noted. The patient is awake, alert and oriented 3, normocephalic and atraumatic, lying in bed, in mild to moderate distress secondary to postoperative pain. HEENT--PERRL, EOMI, mucous membranes and oropharynx dry. Neck--supple, no JVD or bruits, thyroid normal, trachea midline, no adenopathy. Heart--normal S1 and S2, no extra beats, no murmurs, rubs or gallops. Lungs--clear bilaterally with good air movement, no respiratory distress, no accessory muscle use. Abdomen--normal bowel sounds and soft, nontender and nondistended, no hernias or masses, no organomegaly. Extremities--no cyanosis, clubbing or edema. There are good distal pulses b/l. Dermatologic--normal skin turgor, normal color, warm and dry, no abnormal lymph nodes, no rash. Neurologic--cranial nerves II through XII grossly intact, motor and sensory examination normal. Rheumatologic--right knee with Mihai wrap C/D/I. Psychiatric--normal affect. Assessment and Plan: 1. Status post right total knee arthroplasty--complains of mild to moderately severe pain with analgesia not working well at this time. Notified nursing to contact the primary service to adjust pain control. 2. Diabetes mellitus diet controlled-- Accu-Cheks before meals and at bedtime with NovoLog coverage per scale. Pharmacy glycemic management has been consulted. 3. Hypertension continue propranolol 80 mg by mouth twice a day. Losartan on hold until renal function confirmed. Hydralazine 10 mg IV every 6 hours when necessary systolic blood pressure greater than 180. 4. COPD-- Continue mometasone and albuterol. 5. BPH--continue Flomax 0.4 mg by mouth at bedtime. Monitor for urinary retention.
[2016-10-12] MEDS: SODIUM CHLORIDE 0.9% 1000ML 1,000 ML IV SCH ×2 (16:01→23:29)
[2016-10-12] MEDS: OXYCODONE HCL IR 5 MG TAB (IMMEDIATE RELEASE) PO PRN (16:02)
[2016-10-12 16:42] LABS: BASO % 0.2 %; BASO ABS # 0.01 K/uL (0-0.2); COMPLETE YES; HEMATOCRIT 38.2 % (42-52); IG% 0.7 %; LYMPH % 13.8 %; LYMPH ABS # 0.57 K/uL (1.2-3.4); MEAN CELL VOLUME 87.4 fL (80-100); MEAN CORPUSCULAR HEMOGLOBIN 29.1 pg (25-34); MEAN CORPUSCULAR HGB CONC 33.2 g/dl (32-36); MEAN PLATELET VOLUME 9.2 fL (7.4-10.4); MONO % 1.5 %; NEUT % 83.8 %; PLATELET COUNT 190 K/uL (130-400); RED BLOOD COUNT 4.37 M/uL (4.7-6.1); WHITE BLOOD COUNT 4.13 K/uL (4.8-10.8)
--- NOTE | 2016-10-12 16:45 | Orthopedic Progress Note ---
Orthopedic Progress Note Date of Service Oct 12, 2016. Subjective Reports: complaints ("pain is worse than the last time", doesn't like getting waken up when sleeping for exercises and vitals), Denies: chest pain, SOB, nausea / vomiting, light headedness, calf pain Additional Notes: tolerate food; taking pain medication as prescribed, states it's "not helping". States foot still numb. Objective calves soft nontender, N/V intact (distal pulses 1+; still decreased sensation with touch of right foot), capillary refill less than 2 sec., dressing C/D/I, A& O x3, toes mobile Ice on right knee Date Time Temp Pulse Resp B/P (MAP) Pulse Ox O2 Delivery O2 Flow Rate FiO2 10/12/16 16:34 105 18 148/88 (108) 10/12/16 15:23 106 18 129/81 (97) 10/12/16 14:54 92 18 144/90 (108) 10/12/16 14:40 98 Nasal Cannula 2.0 10/12/16 14:15 36.4 85 18 128/80 (96) 98 Nasal Cannula 2.0 10/12/16 14:15 98 Room Air 2.0 10/12/16 13:55 36.5 86 20 123/78 95 Nasal Cannula 2 10/12/16 13:45 83 17 118/77 96 Nasal Cannula 2 10/12/16 13:35 85 18 125/86 95 Nasal Cannula 2 10/12/16 13:25 77 19 140/80 97 Nasal Cannula 2 10/12/16 13:17 36.2 74 20 135/84 100 Oxymask 10 10/12/16 08:27 36.9 90 18 132/99 96 Room Air Laboratory Results 24 Hours: Test 10/12/16 16:00 Additional Notes: RIGHT KNEE 1 OR 2 VIEWS ROUTINE CLINICAL HISTORY: Postoperative evaluation. COMPARISON: Right knee radiographs May 17, 2016. FINDINGS: Alignment of the total right knee arthroplasty is anatomic. There is no fracture or unexpected radiopaque foreign body. There are skin pan. IMPRESSION: Expected findings following total right knee arthroplasty. Assessment & Plan Assessment: POD 0 - Right total knee arthroplasty Plan: Discussed ordered pain regimen. He's okay with plan; doesn't want/need anything adjusted at this time. Tolerating regular diet Appreciate medicine and pharmacy assistance May be OOB/WBAT RLE with walker and immobilizer Will repeat x-ray (lat view) right knee; radiology aware of new order Ice and exercises as needed/tolerated Will discuss findings with Dr. Godoy Will recheck in AM.
[2016-10-12] MEDS: MoRPHine SULFATE 4 MG/ML 1 ML CARP\\VIAL IV PRN ×3 (16:49→21:07)
[2016-10-12 17:07] LABS: BUN/CREATININE RATIO 9.9 (10-20); CALCIUM 9.2 mg/dl (8.5-10.1); CREATININE 1.1 mg/dl (0.60-1.40); POTASSIUM 4.3 mmol/L (3.5-5.1)
[2016-10-12] MEDS ORDERED: INSULIN GLARGINE SOLOSTAR 100 UNITS/ML 3 ML PEN SC ONE (17:15)
[2016-10-12 17:17] LABS: BETA-HYDROXYBUTYRATE 0.71 mg/dL (0.2-2.81)
[2016-10-12] MEDS: KETOROLAC TROMETHAMINE 30 MG/ML VIAL IV. SCH ×2 (17:35→23:30)
[2016-10-12] MEDS: INSULIN ASPART 100 UNITS/ML 3 ML PEN SC SCH ×2 (18:11→23:29)
[2016-10-12] MEDS: TRAMADOL HCL 50 MG TAB PO PRN (19:18)
--- NOTE | 2016-10-12 19:41 | DIAGNOSTIC IMAGING REPORT ---
RIGHT KNEE 1 OR 2 VIEWS ROUTINE CLINICAL HISTORY: Repeat lateral xray right knee. COMPARISON: Right knee radiograph May 17, 2016 and right knee radiographs performed earlier today. FINDINGS: This study is viewed in conjunction with the AP exam which was performed earlier today. Alignment of the total right knee arthroplasty is anatomic on this lateral projection. No periprosthetic fracture or unexpected radiopaque foreign bodies are present. There are skin pan. IMPRESSION: Expected postoperative findings following total right knee arthroplasty on lateral projection. Electronically signed by: Alberto Suarez M.D. 10/12/2016 7:39 PM Dictated Date/Time: 10/12/2016 7:36 PM
[2016-10-12] MEDS ORDERED: LANTUS PER UNIT CHARGE SQ ONE (21:00)
[2016-10-12] MEDS ORDERED: INSULIN IV INFUSION PROTOCOL STA (21:02)
[2016-10-12] MEDS: GABAPENTIN 300 MG CAP PO SCH (21:05)
[2016-10-12] MEDS: TAMSULOSIN HCL 0.4 MG CAP PO SCH (21:05)
[2016-10-12] MEDS: SENNA 8.6 MG TAB PO SCH (21:05)
[2016-10-12] MEDS: PROPRANOLOL HCL 80 MG TAB PO SCH (21:06)
[2016-10-12] MEDS: DOCUSATE SODIUM 100 MG CAP PO SCH (21:06)
[2016-10-12] MEDS ORDERED: INSULIN HUMAN REGULAR IV BOLUS 4.5 UNIT in SYRINGE 0 ML IV SCH (21:15)
[2016-10-12] MEDS: INSULIN REGULAR 250 UNITS in SODIUM CHLORIDE 0.9% 250ML 250 ML IV SCH ×3 (21:24→23:29)
[2016-10-13] MEDS: INSULIN REGULAR 250 UNITS in SODIUM CHLORIDE 0.9% 250ML 250 ML IV SCH ×7 (00:27→11:30)
[2016-10-13] MEDS ORDERED: INSULIN ASPART 100 UNITS/ML 3 ML PEN SC ONE (02:00)
[2016-10-13 03:24] VITALS: BP 106/66; PULSE 86; TEMP 36.6; O2SAT 95
[2016-10-13] MEDS: OXYCODONE HCL IR 5 MG TAB (IMMEDIATE RELEASE) PO PRN ×3 (04:43→14:03)
[2016-10-13] MEDS: KETOROLAC TROMETHAMINE 30 MG/ML VIAL IV. SCH ×2 (05:34→12:53)
[2016-10-13] MEDS: ALBUTEROL HFA 8 GM INHALER INH PRN (05:41)
[2016-10-13 06:11] LABS: MEAN CELL VOLUME 85.9 fL (80-100); MEAN CORPUSCULAR HEMOGLOBIN 28.9 pg (25-34); MEAN CORPUSCULAR HGB CONC 33.6 g/dl (32-36); MEAN PLATELET VOLUME 8.9 fL (7.4-10.4); PLATELET COUNT 207 K/uL (130-400); RED BLOOD COUNT 4.19 M/uL (4.7-6.1); WHITE BLOOD COUNT 12.92 K/uL (4.8-10.8)
[2016-10-13] MEDS: TRAMADOL HCL 50 MG TAB PO PRN ×3 (06:29→20:29)
[2016-10-13 06:51] LABS: BUN/CREATININE RATIO 13.3 (10-20); CALCIUM 9.1 mg/dl (8.5-10.1); CREATININE 0.86 mg/dl (0.60-1.40); POTASSIUM 4.1 mmol/L (3.5-5.1)
[2016-10-13 07:43] LABS: ESTIMATED AVERAGE GLUCOSE 143 mg/dl; HA1C FLAG Normal (Normal)
--- NOTE | 2016-10-13 07:50 | Pharmacy Progress Note ---
Glycemic Control Progress Note Date of Service Oct 13, 2016. Scope Glycemic Pharmacist consulted for glycemic control to write orders per [facility] inpatient glycemic control protocol. Objective Accuchecks BSG (last 24hrs): Test 10/12/16 07:56 10/12/16 16:00 10/12/16 17:05 10/12/16 20:40 Bedside Glucose 165 mg/dl (70-99) 343 mg/dl (70-99) 373 mg/dl (70-99) Random Glucose 301 mg/dl (70-99) Test 10/12/16 21:16 10/12/16 22:35 10/12/16 23:26 10/13/16 00:25 Bedside Glucose 423 mg/dl (70-99) 339 mg/dl (70-99) 305 mg/dl (70-99) 257 mg/dl (70-99) Test 10/13/16 01:26 10/13/16 02:25 10/13/16 03:26 10/13/16 04:27 Bedside Glucose 190 mg/dl (70-99) 204 mg/dl (70-99) 174 mg/dl (70-99) 151 mg/dl (70-99) Test 10/13/16 05:24 10/13/16 05:45 10/13/16 06:26 Bedside Glucose 166 mg/dl (70-99) 110 mg/dl (70-99) Random Glucose 117 mg/dl (70-99) HbA1c: 6.7% on 06/21/16, this is diagnostic for diabetes as is it > 6.5% Repeat A1c Pending Recent Pertinent Medications The patient is currently receiving: * IV insulin infusion per severe stress protocol * Goal range 110-140mg/dl * Insulin infusion has been running at 9.4 units/hr overnight Outpatient Anti-Diabetic Meds diet controlled? Assessment & Plan ASSESSMENT: * See progress note from 10/12/16 for more background info, in short: * Pt initially ordered SQ basal bolus insulin regimen for hyperglycemia secondary to baseline DM (undiagnosed/diet controlled),stress, recent surgery, steroids (dxm PO preop). However, BSGs persistently greater than 340mg/dl yesterday post operatively. Recommended IV insulin infusion for severe hyperglycemia post-op. D/W medical team and got their approval. * Patient is currently receiving IV insulin infusion at 9.4 units/hr. Of note, Pt did receive one time dose of Lantus yesterday around dinnertime of 50 units ( 0.4 units/kg). * BSGs improved and in goal range this morning. Pt meets criteria to transition to SQ basal bolus. PLAN FOR INPATIENT GLYCEMIC CONTROL: * Continue IV insulin infusion and overlap with SQ basal bolus insulin regimen * Will give NovoLog carb coverage with lunch and then d/c IV insulin when held per calculator or 4hrs after NovoLog dose given, whichever happens sooner * Basal insulin * May not be needed as A1c is only 6.6%. Basal insulin was needed for severe steroid induced hyperglycemia. * Will resume basal insulin if BSG > 180 * Bolus insulin * NovoLog per scale ACHS or Q6hrs while NPO * Goal Range: Low 110 mg/dL - High 140 mg/dL * Correction Factor: 20 mg/dL/unit * Nutritional / Prandial insulin per carb ratio of 1 unit per 7 grams CHO consumed * Oral agents * Start Metformin ER 500mg PO daily with dinner. This should be continued at discharge * Livestock Breeder to see patient and discuss diabetes basics. [facility] will review medications. RECOMMENDATIONS FOR DISCHARGE: * A1c = 6.6% on 10/12/16 --> this is diagnostic for diabetes. ADA recommendation is to treat diabetes. * Recommend initiating Metformin XR 500mg PO daily with evening meal. * Continue to titrate metformin dosing upwards as recommended. Dosage increases should be made in increments of 500 mg weekly, up to 2,000 mg/day PO, given in divided doses. Doses above 2000 mg/day may be better tolerated if divided and given 3 times per day with meals. Max: 2,550 mg/day PO, in divided doses * Please note that the plan above was derived based on current level of insulin resistance and hospital stress. These recommendations are appropriate for inpatient admission only. Plan of care upon discharge will need to be reassessed to avoid potential outpatient hypo/hyperglycemia. Thank you.
[2016-10-13] MEDS: MoRPHine SULFATE 4 MG/ML 1 ML CARP\\VIAL IV PRN (07:55)
[2016-10-13] MEDS: PANTOprazole SOD 40 MG TAB PO SCH (08:36)
[2016-10-13] MEDS: GABAPENTIN 300 MG CAP PO SCH ×2 (08:36→20:30)
[2016-10-13] MEDS: PROPRANOLOL HCL 80 MG TAB PO SCH ×2 (08:37→20:31)
[2016-10-13] MEDS: DOCUSATE SODIUM 100 MG CAP PO SCH ×2 (08:37→20:29)
[2016-10-13] MEDS: CHOLECALCIFEROL 1000 INTER.UNIT TAB PO SCH (08:38)
[2016-10-13] MEDS: MOMETASONE FUROATE 14 PUFF/1 INHALER INH SCH (08:38)
[2016-10-13] MEDS: DULOXETINE HCL 60 MG CAP PO SCH (08:38)
[2016-10-13] MEDS: ENOXAPARIN 30 MG/0.3 ML SYR SQ SCH ×2 (08:39→20:31)
--- NOTE | 2016-10-13 08:42 | Anesthesiology Progress Note ---
Anesthesia Post Op Note Date & Time Oct 13, 2016 at 08:41 Vital Signs Vital Signs Past 12 Hours Date Time Temp Pulse Resp B/P (MAP) Pulse Ox O2 Delivery O2 Flow Rate FiO2 10/13/16 07:50 Room Air 10/13/16 03:24 36.6 86 16 106/66 (79) 95 Room Air 10/12/16 23:25 36.8 97 16 119/74 (89) 95 Room Air Notes Mental Status: alert / awake / arousable, participated in evaluation Pt Amnestic to Procedure: Yes Nausea / Vomiting: adequately controlled Pain: adequately controlled Airway Patency, RR, SpO2: stable & adequate BP & HR: stable & adequate Hydration State: stable & adequate Neuraxial Anesthesia: was administered, sensory block resolved Anesthetic Complications: no major complications apparent
[2016-10-13] MEDS: SODIUM CHLORIDE 0.9% 1000ML 1,000 ML IV SCH (08:46)
[2016-10-13] MEDS: OXYCODONE HCL 10 MG TABCR (OXYCONTIN) PO SCH ×2 (08:47→20:29)
[2016-10-13] MEDS ORDERED: INSULIN GLARGINE SOLOSTAR 100 UNITS/ML 3 ML PEN SC SCH (09:00)
[2016-10-13] MEDS ORDERED: LOSARTAN POTASSIUM 50 MG TAB PO SCH (09:00)
[2016-10-13] MEDS: INSULIN ASPART 100 UNITS/ML 3 ML PEN SC SCH ×3 (09:00→21:00)
--- NOTE | 2016-10-13 09:06 | Hospitalist Progress Note ---
Hospitalist Progress Note Date of Service Oct 13, 2016. (Shelley Christianson PA-C) Subjective Pt evaluation today including: conversation w/ patient, conversation w/ family , physical exam, chart review, lab review, review of studies Pain: Mild R knee PO Intake: Good Voiding: no voiding problems The patient was seen and examined this afternoon with his at bedside. He feels well, and his pain is controlled ok, but notes he is having severe pain at this time. He was up and walked with PT/OT this morning and this went well. Pt notes he chronically takes Dilaudid PO 6 mg Q4H at home. He denies constipation, and feels as if he needs to move his bowels now. Constitutional: No fever, No chills, No sweats, No fatigue Eyes: No redness ENT: No nasal symptoms, No sore throat Respiratory: No shortness of breath, No dyspnea on exertion, No dyspnea at rest Cardiovascular: No chest pain, No edema, No palpitations Abdomen: No pain, No nausea, No vomiting, No diarrhea, No constipation Musculoskeletal: + joint pain (R knee), No muscle pain, No swelling Male : No dysuria Neurologic: No weakness, No numbness/tingling Skin: No rash, No itch (Shelley Christianson, JOCELYN) Objective Vital Signs Date Time Temp Pulse Resp B/P (MAP) Pulse Ox O2 Delivery O2 Flow Rate FiO2 10/13/16 07:50 Room Air 10/13/16 03:24 36.6 86 16 106/66 (79) 95 Room Air 10/12/16 23:25 36.8 97 16 119/74 (89) 95 Room Air 10/12/16 19:34 36.7 108 18 127/79 (95) 93 Room Air 10/12/16 19:20 Room Air 10/12/16 17:08 106 161/104 (123) 10/12/16 16:34 105 18 148/88 (108) 10/12/16 15:23 106 18 129/81 (97) 10/12/16 14:54 92 18 144/90 (108) 10/12/16 14:40 98 Nasal Cannula 2.0 10/12/16 14:15 36.4 85 18 128/80 (96) 98 Nasal Cannula 2.0 10/12/16 14:15 98 Room Air 2.0 10/12/16 13:55 36.5 86 20 123/78 95 Nasal Cannula 2 10/12/16 13:45 83 17 118/77 96 Nasal Cannula 2 10/12/16 13:35 85 18 125/86 95 Nasal Cannula 2 10/12/16 13:25 77 19 140/80 97 Nasal Cannula 2 10/12/16 13:17 36.2 74 20 135/84 100 Oxymask 10 (Shelley Christianson PA-C) Physical Exam General Appearance: WD/WN, no apparent distress, + obese Eyes: PERRL, EOMI ENT: hearing grossly normal, pharynx normal Neck: supple, no JVD Respiratory/Chest: lungs clear, no respiratory distress, no accessory muscle use Cardiovascular: regular rate, rhythm, no murmur Abdomen: normal bowel sounds, non tender, soft Extremities: non-tender, no pedal edema, no calf tenderness, + pertinent finding (R leg wrapped in ALICE from foot to hip, brace applied while at bedside, Ice pack in place.) Neurologic/Psychiatric: alert, normal mood/affect, oriented x 3 Skin: normal color, warm/dry (Shelley Christianson, CASSY-C) Laboratory Results Last 24 Hours Test 10/12/16 16:00 10/12/16 17:05 10/12/16 20:40 10/12/16 21:16 White Blood Count 4.13 K/uL Red Blood Count 4.37 M/uL Hemoglobin 12.7 g/dL Hematocrit 38.2 % Mean Corpuscular Volume 87.4 fL Mean Corpuscular Hemoglobin 29.1 pg Mean Corpuscular Hemoglobin Concent 33.2 g/dl Platelet Count 190 K/uL Mean Platelet Volume 9.2 fL Neutrophils (%) (Auto) 83.8 % Lymphocytes (%) (Auto) 13.8 % Monocytes (%) (Auto) 1.5 % Eosinophils (%) (Auto) 0.0 % Basophils (%) (Auto) 0.2 % Neutrophils # (Auto) 3.46 K/uL Lymphocytes # (Auto) 0.57 K/uL Monocytes # (Auto) 0.06 K/uL Eosinophils # (Auto) 0.00 K/uL Basophils # (Auto) 0.01 K/uL RDW Standard Deviation 41.0 fL RDW Coefficient of Variation 12.7 % Immature Granulocyte % (Auto) 0.7 % Immature Granulocyte # (Auto) 0.03 K/uL Sodium Level 137 mmol/L Potassium Level 4.3 mmol/L Chloride Level 102 mmol/L Carbon Dioxide Level 27 mmol/L Anion Gap 8.0 mmol/L Blood Urea Nitrogen 11 mg/dl Creatinine 1.10 mg/dl Est Creatinine Clear Calc Drug Dose 94.3 ml/min Estimated GFR () 84.1 Estimated GFR (Non- 72.6 BUN/Creatinine Ratio 9.9 Random Glucose 301 mg/dl Estimated Average Glucose 143 mg/dl Hemoglobin A1c 6.6 % Calcium Level 9.2 mg/dl Beta-Hydroxybutyric Acid 0.71 mg/dL Bedside Glucose 343 mg/dl 373 mg/dl 423 mg/dl Test 10/12/16 22:35 10/12/16 23:26 10/13/16 00:25 10/13/16 01:26 Bedside Glucose 339 mg/dl 305 mg/dl 257 mg/dl 190 mg/dl Test 10/13/16 02:25 10/13/16 03:26 10/13/16 04:27 10/13/16 05:24 Bedside Glucose 204 mg/dl 174 mg/dl 151 mg/dl 166 mg/dl Test 10/13/16 05:45 10/13/16 06:26 10/13/16 07:30 10/13/16 08:26 White Blood Count 12.92 K/uL Red Blood Count 4.19 M/uL Hemoglobin 12.1 g/dL Hematocrit 36.0 % Mean Corpuscular Volume 85.9 fL Mean Corpuscular Hemoglobin 28.9 pg Mean Corpuscular Hemoglobin Concent 33.6 g/dl RDW Standard Deviation 39.9 fL RDW Coefficient of Variation 12.7 % Platelet Count 207 K/uL Mean Platelet Volume 8.9 fL Sodium Level 140 mmol/L Potassium Level 4.1 mmol/L Chloride Level 105 mmol/L Carbon Dioxide Level 29 mmol/L Anion Gap 6.0 mmol/L Blood Urea Nitrogen 11 mg/dl Creatinine 0.86 mg/dl Est Creatinine Clear Calc Drug Dose 120.6 ml/min Estimated GFR () 109.2 Estimated GFR (Non- 94.3 BUN/Creatinine Ratio 13.3 Random Glucose 117 mg/dl Calcium Level 9.1 mg/dl Bedside Glucose 110 mg/dl 93 mg/dl 89 mg/dl (Shelley Christianson PA-C) Assessment and Plan 61 y/o male with a history of HTN, COPD, DM II, anxiety, BPH, and GERD who presents s/p right TKA with Dr. Godoy on 10/12 for medical management. S/p right TKA--POD #1 -Pain management, DVT prophylaxis, and PT/OT as per primary team - Pt plans to go home with home health services tomorrow or Tuesday HTN--stable -Hold losartan until renal function checked/stable -Continue propranolol 80 mg PO BID -Cover with hydralazine 10 mg IV q6h prn SBP >180 COPD--stable -Continue mometasone 1 puff inh qd and albuterol prn DM II--last HgbA1c checked 06/21/16 was 6.7. Pt not currently on medications for this - PT required insulin gtt overnight for BG> 400. He has been transitioned off this and started on Metformin 500 mg QPM along with ISS with accuchecks ACHS - HgbA1c 6.6 - outreach educator was in to see the patient- appreciate - Pharmacy consulted for glycemic control by primary team Anxiety -Continue hydroxyzine 10 mg PO BID prn BPH -Continue Flomax 0.4 mg PO qhs GERD -Prilosec converted to Protonix Code Status: FULL CODE Disposition: From home, to assist with d/c planning, likely home within 1-2 days. (Shelley Christianson, JOCELYN) PA Physician Supervision Note: I interviewed and examined the patient. Discussed with Shelley Christianson PAC and agree with findings and plan as documented in the note. Any exceptions or clarifications are listed here: None Patient status post total knee replacement with Dr. Godoy, initially had problems with hyperglycemia managed with an insulin drip and transition to oral medications with better control his other medical problems of diabetes COPD and BPH have been stable and he'll progress toward rehabilitation and eventual discharge Documented By: Mak Hernández (Mak Hernández M.D.)
--- NOTE | 2016-10-13 11:46 | Discharge Instructions ---
Discharge Instructions Date of Service Oct 13, 2016. Admission Reason for Admission: Right Knee Degenerative Joint Disease Discharge Discharge Diagnosis / Problem: Right knee Degnererative Joint Disease Discharge Goals Goal(s): Decrease discomfort, Improve function, Increase independence Activity Recommendations Activity Limitations: per Instructions/Follow-up section Weightbearing Status: Right weightbearing (as tolerated) . Instructions / Follow-Up Instructions / Follow-Up New Medicine: * You will likely be taking one or more of these medications: 1. Lovenox - You will be on Lovenox for 4 weeks after surgery to prevent blood clots. The CBC blood test will need to be done every week while on Lovenox. Do not take anti- inflammatory pills (Advil or Aleve) while on Lovenox. Aspirin, 81 mg is OK. 2. Dilaudid 6mg, take 1 tab every 4 hours as needed for pain. 3. Colace & Senokot - Take to prevent constipation which can be caused by narcotics. These can be bought [id number] at the pharmacy * The most common side effects of pain medicine and iron are nausea and constipation. If nausea or constipation is too much of a problem or if you have any questions about your new medicines or doses, call [facility] at . We will try to help you manage these issues. VERY IMPORTANT TO READ AND REVIEW" Blood Clots and Blood Thinning Medicine: * You are given Lovenox during the immediate post-operative period to lessen the risk of blood clots forming in your legs and/or lungs. Lovenox is usually given for four weeks after surgery. Physical Therapy: * Do your physical therapy at home. These are the exercises you learned while in the hospital (quad sets, leg raises, calf pumps, gluteal squeezes, knee bending, and heel props.) You should do these exercises 3-4 times per day. * You will either go to inpatient rehab ([facility]), home with Home Therapy and nursing or home with outpatient rehab. You should do rehab with the therapist 2-3 times per week. You should do therapy on your own daily. * You may bear full weight on your leg with crutches or walker unless otherwise advised. Home Exercise: * You were shown a series of exercises (heel props, heel slides, etc.) in the hospital. Do these exercises three to four times each day including the exercises you were shown in physical therapy. Walking: * You may be up for short periods of time. Standing and walking for 1-2 hours at a time is usually okay. You should not stand or walk for excessive periods of time as this may cause increased pain and swelling. SELF CARE INSTRUCTIONS AFTER TOTAL KNEE REPLACEMENT A. You may need to continue a physical therapy program after discharge from the hospital. There are several options available to you. Your doctor will assist you in selecting the best one for you. 1. An out-patient facility 2 to 3 times a week for therapy or home therapy. 2. Continue working on all exercises taught to you in the hospital. Your goals should be to increase bending of your knee to 90 degrees and beyond and to fully straighten your knee. B. Your therapist will notify you when you are able to progress from a walker to a cane. C. Wear TEDS as much as possible.~ They may be removed at night for laundering. D. Do not place a pillow behind your knee when resting. A pillow at your ankle is okay. E. Ice your knee 15-20 minutes every 2-3 hours and elevate it above the level of your heart. F. You may shower on the fourth day after surgery using regular soap and water. Do not submerge until the wound is completely healed (approximately 2 weeks ). Until the fourth day after surgery, cover the incision/bandage with a bag or plastic wrap. G. Anyone who is touching your surgical incision area should wash their hands and wear gloves. H. Keep your incision covered with gauze pads under the UZAIR hose until it is dry. VERY IMPORTANT TO READ AND REVIEW A. YOU WILL BE GIVEN AN ORDER AT DISCHARGE FOR PT/INR (BLOOD WORK). PLEASE HAVE THIS DONE INSTRUCTED. PLEASE CALL OUR OFFICE AFTER YOUR BLOODWORK IS COMPLETE SO WE CAN TRACK YOUR RESULTS. IF YOU ARE GOING TO OUTPATIENT PHYSICAL THERAPY, YOU WILL NEED TO GO TO OUTPATIENT TESTING TO HAVE IT DRAWN. B. There are a few signs you need to watch for after you are home. Call [facility] if you notice any of the followin. Increased severe knee pain. Some pain is expected especially when you exercise. 2. Increased swelling in your leg or knee; pain or swelling of the calf muscle in either lower leg. 3. Any fluid drainage from the incision. 4. Shortness of breath or chest pain. 5. Numbness and tingling in the surgical extremity C. Please call [facility] at if you have any concerns or questions about your operation or recovery. The doctor or his nurse will return your call promptly. D. Do not have any elective dental work or other elective procedures done for 6 weeks after your knee replacement. When you have any invasive procedure (dental cleaning, extraction, colonoscopy etc) performed, you will need to take antibiotics to prevent infection from developing in your artificial joint. Tell your other health care providers you have an artificial joint. My office will supply you with further information and the antibiotics. Call your doctor if: * Temperature above 101 degrees F. * Pain not relieved by pain medicine ordered. * Increased drainage or redness from incision. * Notify your doctor with any questions or concerns. Follow-up Visit: You will follow-up with Dr. Godoy 10-14 days after surgery. The office number is . * You have a follow up scheduled with Dr. Godoy on 10/25/16 at 12:45 p.m. * You should schedule an outpatient physical therapy appointment with the office or your choice for approximately 2 weeks after your surgery in preparation for when your in home physical therapy is completed. You will need a prescription for that therapist, please call our office to obtain and we will fax to that therapist's office. Avoid all tobacco products. If you need help to stop smoking, call [place] QUITLINE at . This is a free call. Current Hospital Diet Patient's current hospital diet: Diabetes Type 2 Diet Discharge Diet Recommended Diet: Regular Diet, Diabetes Type 2 Diet Procedures Procedures Performed: Right Total Knee Arthroplasty Pending Studies Studies pending at discharge: no Laboratory Results Hemoglobin A1c Test 10/12/16 16:00 Range/Units Estimated Average Glucose 143 mg/dl Hemoglobin A1c 6.6 H 4.5-5.6 % Medical Emergencies . Who to Call and When: Medical Emergencies: If at any time you feel your situation is an emergency, please call 911 immediately. . Non-Emergent Contact Non-Emergency issues call your: Surgeon Call Non-Emergent contact if: temperature is above 101, your pain is not controlled, your pain is concerning you, wound has increased drainage, wound has increased redness, wound has increased pain, you have any medication questions . "Provider Documentation" section prepared by Faina King. . VTE Core Measure Inpt VTE Proph given/why not?: Enoxaparin (Lovenox)SQ (30 mg twice daily x 4 weeks), AnnaEBruce Stauffer ID Drug Monitoring Program Search Results: patient reviewed within database, no issues identified
[2016-10-13] MEDS ORDERED: INSULIN ASPART 100 UNITS/ML 3 ML PEN SC SCH ×2 (12:00)
[2016-10-13 12:03] VITALS: Ht 180.3 cm; Wt 120.5 kg
[2016-10-13] MEDS: HYDROmorphone HCL 2 MG TAB PO PRN ×2 (15:35→23:38)
--- NOTE | 2016-10-13 16:56 | Progress Note ---
Progress Note Date of Service Oct 13, 2016. Progress Note Mr. Reed is resting comfortably in bed. He reports a lesion on his back which is inspected. This is a area perhaps 3 cm in diameter with mild erythema. There is a nonadherent dressing on top of it. There is no pustule were cavity. There is no purulence or drainage. The superficial areas of skin looks broken down as if the roof of a blister. He is afebrile his vital signs are stable his labs are noted white count is likely elevated due to stress response from surgery/steroids. He's had some bleeding through his dressing which is reinforced. Dorsalis pedis 1+ with some numbness throughout the foot and ankle and toe plantarflexion and dorsiflexion is 5 out of 5. He does not have any pain with passive movement of the toes or ankle. Radiographically the knee show a well-positioned total knee arthroplasty there is no evidence of complication there is no fracture or dislocation evident. Impression is right knee replacement #2 history of MRSA #3 diabetes Plan continue postoperative management were the total knee protocol. He'll be on Lovenox for DVT prophylaxis. Will be and changes dressing tomorrow and see if he suitable for discharge. We reviewed the findings of the surgical procedure with him. Pain management strategy discussed. He is sore but I think the pain management regimen is reasonably effective. Therapy exercises reinforced
[2016-10-13] MEDS: METFORMIN HCL 500 MG TABCR PO SCH (18:58)
[2016-10-13] MEDS: SENNA 8.6 MG TAB PO SCH (21:52)
[2016-10-13] MEDS: TAMSULOSIN HCL 0.4 MG CAP PO SCH (21:52)
[2016-10-13 23:50] VITALS: BP 151/85; PULSE 79; TEMP 36.4; O2SAT 98
[2016-10-14] MEDS: MoRPHine SULFATE 4 MG/ML 1 ML CARP\\VIAL IV PRN ×3 (02:15→12:27)
[2016-10-14] MEDS: HYDROmorphone HCL 2 MG TAB PO PRN ×5 (05:07→23:52)
[2016-10-14 06:43] LABS: PARTIAL THROMBOPLASTIN RATIO 1.1
[2016-10-14 07:23] VITALS: BP 168/88; PULSE 74; TEMP 36.8; O2SAT 94
[2016-10-14] MEDS: TRAMADOL HCL 50 MG TAB PO PRN (08:23)
[2016-10-14] MEDS: MOMETASONE FUROATE 14 PUFF/1 INHALER INH SCH (08:44)
[2016-10-14] MEDS: OXYCODONE HCL 10 MG TABCR (OXYCONTIN) PO SCH ×2 (08:44→21:20)
[2016-10-14] MEDS: INSULIN ASPART 100 UNITS/ML 3 ML PEN SC SCH ×4 (08:45→21:00)
[2016-10-14] MEDS: DULOXETINE HCL 60 MG CAP PO SCH (08:45)
[2016-10-14] MEDS: ALBUTEROL HFA 8 GM INHALER INH PRN (08:47)
[2016-10-14] MEDS: PANTOprazole SOD 40 MG TAB PO SCH (08:48)
[2016-10-14] MEDS: CHOLECALCIFEROL 1000 INTER.UNIT TAB PO SCH (08:48)
[2016-10-14] MEDS: DOCUSATE SODIUM 100 MG CAP PO SCH ×2 (09:49→21:16)
[2016-10-14] MEDS: PROPRANOLOL HCL 80 MG TAB PO SCH ×2 (09:49→21:14)
[2016-10-14] MEDS: GABAPENTIN 300 MG CAP PO SCH ×2 (09:50→21:16)
[2016-10-14] MEDS: ENOXAPARIN 30 MG/0.3 ML SYR SQ SCH ×2 (09:51→21:16)
--- NOTE | 2016-10-14 12:13 | Hospitalist Progress Note ---
Hospitalist Progress Note Date of Service Oct 14, 2016. Subjective Pt evaluation today including: conversation w/ patient, physical exam, chart review, lab review, review of studies Pain: R knee, severe PO Intake: Good Voiding: no voiding problems The patient was seen and examined this morning. Pt reports his pain is a 15/10 this morning, and that he has been taking dilaudid PO as he does as an outpatient, and this helps slightly but doesn't cut breakthrough pain. He walked with PT/OT this morning and was able to go ~ 80 feet, he also did well with flexing his knee. He is concerned that he has no money to machine pecan picker prescriptions today, so is requesting to remain in the hospital until tomorrow morning when he gets his disability check. Constitutional: No fever, No chills, No sweats Respiratory: No shortness of breath, No dyspnea at rest Cardiovascular: No chest pain, No palpitations Abdomen: No pain, No nausea, No vomiting, No diarrhea, No constipation Musculoskeletal: + see HPI Male : No dysuria Neurologic: + numbness/tingling (+ RLE), No weakness Skin: No rash Objective Vital Signs Date Time Temp Pulse Resp B/P (MAP) Pulse Ox O2 Delivery O2 Flow Rate FiO2 10/14/16 08:20 Room Air 10/14/16 07:23 36.8 74 20 168/88 (114) 94 Room Air 10/14/16 00:15 Room Air 10/13/16 23:50 36.4 79 20 151/85 (107) 98 Nasal Cannula 3.0 10/13/16 15:10 Room Air Physical Exam General Appearance: WD/WN, no apparent distress, + obese Eyes: PERRL, EOMI ENT: hearing grossly normal, pharynx normal Neck: supple, no JVD Respiratory/Chest: lungs clear, no respiratory distress, no accessory muscle use Cardiovascular: regular rate, rhythm, no murmur Abdomen: normal bowel sounds, non tender, soft Extremities: non-tender, + pedal edema (in RLE. No edema in the left.) Neurologic/Psychiatric: alert, normal mood/affect, oriented x 3 Skin: normal color, warm/dry Laboratory Results Last 24 Hours Test 10/13/16 12:29 10/13/16 14:41 10/13/16 17:04 10/13/16 21:09 Bedside Glucose 104 mg/dl 158 mg/dl 186 mg/dl 115 mg/dl Test 10/14/16 05:26 10/14/16 07:52 Activated Partial Thromboplast Time 27.6 SECONDS Partial Thromboplastin Ratio 1.1 Bedside Glucose 132 mg/dl Assessment and Plan 61 y/o male with a history of HTN, COPD, DM II, anxiety, BPH, and GERD who presents s/p right TKA with Dr. Godoy on 10/12 for medical management. S/p right TKA--POD #1 - Pain management, DVT prophylaxis, and PT/OT as per primary team - will need all prescriptions refilled upon discharge to home. - Pt plans to go home with home health services tomorrow - CM assisting HTN--stable - resume losartan today with stable Cr. and BP slowly trending up again - Continue propranolol 80 mg PO BID - Cover with hydralazine 10 mg IV q6h prn SBP >180 COPD--stable - Continue mometasone 1 puff inh qd and albuterol prn DM II--last HgbA1c checked 06/21/16 was 6.7. Pt not currently on medications for this - PT required insulin gtt overnight for BG> 400. He has been transitioned off this and started on Metformin 500 mg QPM along with ISS with accuchecks ACHS - HgbA1c 6.6 - tobacco prevention health educator was in to see the patient- appreciate - Pharmacy consulted for glycemic control by primary team Anxiety -Continue hydroxyzine 10 mg PO BID prn BPH -Continue Flomax 0.4 mg PO qhs GERD -Prilosec converted to Protonix Code Status: FULL CODE Disposition: From home, CM to assist with d/c planning, likely home within 24 hours
--- NOTE | 2016-10-14 12:36 | PROGRESS NOTE ---
DATE: 10/14/2016 SUBJECTIVE: Mr. Reed is resting comfortably in bed. We did inspect his back lesion, which appears to be like a small excoriation on the skin, almost like an unroof blister. It is a little bit tender, a trace a bit red, but no purulence and otherwise benign in appearance. He is eating well and moving his bowels. He complains of ongoing pain in his right knee, which has been difficult to manage. PHYSICAL EXAMINATION: He is afebrile. His vital signs are stable. His dressing is clean and dry, although it had to be replaced. He does have a moderate effusion in the right knee. He can do a fair quad set, but cannot do a leg raise. He has 5/5 ankle and toe plantar flexion and dorsiflexion strength and a 1+ posterior tib pulse. Sensation is intact in the foot. IMPRESSION: 1. Right knee replacement. 2. History of methicillin-resistant Staphylococcus aureus. 3. Diabetes. PLAN: Findings are discussed. I think given his current pain control issues that continued admission is warranted to address this. We will continue on the Lovenox for DVT prophylaxis. Continue PT and OT. I will follow up with him tomorrow to see if he is appropriate for discharge.
[2016-10-14] MEDS ORDERED: CLC100 PO (12:58)
[2016-10-14] MEDS ORDERED: LVNIS30 SQ (12:58)
[2016-10-14] MEDS ORDERED: HYDR4TAB2 PO (12:58)
[2016-10-14] MEDS ORDERED: HYDR2TAB48 PO (12:58)
--- NOTE | 2016-10-14 13:05 | Discharge Summary ---
Discharge Summary Date of Service Oct 14, 2016. Discharge Summary Admission Date: Oct 12, 2016 at 09:30 Discharge Date: Oct 15, 2016 Discharge Disposition: Home with services Principal Diagnosis: Right knee degenerative joint disease Secondary Diagnoses/Problems: DM, HTN, GERD, h/o MRSA, Asthma, OA, COPD Procedures: Right Total knee arthroplasty Consultations: Hospitalist; glycemic control Pending Studies/Follow-Up: Follow up with Dr. Godoy as scheduled. Appointments noted in discharge instructions. Medication Reconciliation New Medications: Hydromorphone Hcl (Dilaudid) 2 Mg Tab 1 TAB PO QID PRN for Pain for 14 Days, #56 TAB Hydromorphone Hcl (Dilaudid) 4 Mg Tab 1 TAB PO QID PRN for Pain for 14 Days, #56 TAB Docusate Sodium (Docusate Sodium) 100 Mg Cap 100 MG PO BID for 30 Days, #60 CAP Enoxaparin (Lovenox) 30 Mg/0.3 Ml Inj 30 MG SQ Q12H for 28 Days, #56 SYR 0 Refills Metformin HCl (Metformin HCl ER) 500 Mg Tabcr 500 MG PO QDD for 30 Days, #30 DOSE Continued Medications: Albuterol Sulfate (Proventil Hfa) 108 Mcg/Act Aer 2 PUFFS INH QID PRN for Shortness of Breath Cholecalciferol (Vitamin D3) 1,000 Unit Tab 2000 INTER.UNIT PO QAM, TAB Duloxetine HCl (Duloxetine HCl) 60 Mg Cap 60 MG PO QAM Gabapentin (Neurontin) 300 Mg Cap 900 MG PO BID, CAP Hydromorphone Hcl (Dilaudid) 4 Mg Tab 4 MG PO Q4H PRN for Pain Hydromorphone HCl (Hydromorphone HCl) 2 Mg Tab 2 MG PO Q4H PRN for Pain, #15 Hydroxyzine HCl (Hydroxyzine HCl) 10 Mg Tab 10 MG PO BID PRN for Anxiety Losartan Potassium (Cozaar) 100 Mg Tab 100 MG PO QAM, TAB Mometasone Furoate (Inhalation (Asmanex Twisthaler 120 Me) 220 Mcg/Inh Aer 1 PUFF INH DAILY Omeprazole (Prilosec) 20 Mg Cap 40 MG PO QAM, CAP Propranolol (Inderal) 80 Mg Tab 80 MG PO BID, TAB Tamsulosin Hcl (Flomax) 0.4 Mg Cap 0.4 MG PO QPM, CAP Discontinued Medications: Diclofenac (Voltaren) 50 Mg Tabec 50 MG PO DAILY PRN for Pain/Inflamation, TAB Admission Information HPI (per Admitting provider): Patient is a 61-year-old male patient, who has been treated at our orthopedic office for ongoing right knee pain. He is status post a left total knee arthroplasty in January 2016 and doing well with that. He continues to have right knee pain. He states that it has progressively worsened. He states that he has pain with daily activities and weightbearing. He has pain and Limitation with range of motion. He has limited range of motion due to pain in his right knee. He states that it bothers him on a daily basis. He has trouble controlling the amount of pain that he has from his right knee. Aggravating activities include walking, going up and down steps, sitting at rest for a long period of time. He has failed conservative treatment which has included corticosteroid injections, behavior modification, [id number] oral analgesics, physical therapy, anti-inflammatories, and thermal modalities. Due to his success with the recent left total knee arthroplasty would like to proceed with a right total knee arthroplasty. He denies any new recent injuries or falls to his right knee. He denies any numbness or tingling of his right lower extremity. He states that he does use a walking stick or cane to assist with ambulation occasionally. His x-rays confirm end-stage osteoarthritis of his right knee and due to these findings and his progressively worsening symptoms he has been scheduled for an elective right total knee arthroplasty with Dr. Godoy on 09/07/2016 at the [facility]. Physical Exam (per Admitting): General Appearance: WD/WN, no apparent distress Head: normocephalic, atraumatic Eyes: normal inspection, PERRL, EOMI, sclerae normal ENT: normal ENT inspection, hearing grossly normal, TMs normal, pharynx normal Neck: supple, no adenopathy, thyroid normal, no carotid bruits, trachea midline Respiratory/Chest: chest non-tender, lungs clear, normal breath sounds, no respiratory distress, no accessory muscle use Cardiovascular: regular rate, rhythm, no edema, no murmur, normal peripheral pulses Abdomen/GI: normal bowel sounds, non tender, soft Extremities/Musculoskelatal: no calf tenderness, normal capillary refill, no pedal edema, pelvis stable, + pertinent finding (right knee: No effusion, stable ligaments exam right knee, range of motion 0\\3\\115 with pain and points of flexion and extension. Point tenderness palpation medial joint line. Crepitation with range of motion in the patellofemoral joint. Extensor mechanism is intact. Rudy maneuver negative anterior and posterior drawer negative. Varus alignment. Walks with an antalgic gait today with no assistive device. Full hip and ankle range of motion without discomfort. Strength is 5 out of 5. Distal pulses 1+. Darleen refill is brisk) Neurologic/Psych: no motor/sensory deficits, alert, normal mood/affect, normal reflexes, oriented x 3 Skin: normal color, warm/dry, no rash Hospital Course Patient is a 61-year-old male who was admitted to [facility] after undergoing an elective right total knee arthroplasty by Dr. George Godoy. The surgery was done with spinal anesthesia in peripheral nerve block. He tolerated the procedure well without any intraoperative complications. Postoperative x-rays taken the recovery room revealed a stable right total knee arthroplasty. He was given IV daptomycin 400 mg preoperatively due to his history of MRSA and it was not continued postoperatively due to this being a 24 hour coverage dose. He was allowed out of bed, weightbearing as tolerated right lower extremity with the assistance of a knee immobilizer and walker. He was seen in consultation by the hospitalist service for postoperative medical management. A glycemic control consult was also placed for management of his diabetes. IV and oral pain medication was prescribed for control of his pain. He was seen in consultation by physical therapy and did well out of bed with ambulation and range of motion exercises. He was placed on Lovenox 30 mg twice a day for DVT prophylaxis as well as the use of UZAIR stockings and AV impulse boots. His labs were stable during this hospital stay. He did develop acute blood loss anemia but no transfusions were necessary. His dressing on his right knee was changed on postoperative day 2. The Silverlon dressing and ABDs were saturated with blood. New Silverlon was applied. His incision remained clean dry and intact. His pain was well-controlled with his Dilaudid oral pain medication. He was seen by case management and certified social workers in health care for disposition needs. A referral was made for home health services. He was cleared by physical therapy for discharge to home. He was discharged to his home on 2016 stable condition. Discharge instructions were provided. Total time spent on discharge = This includes examination of the patient, discharge planning, medication reconciliation, and communication with other providers. Discharge Instructions Discharge Instructions Date of Service Oct 13, 2016. Admission Reason for Admission: Right Knee Degenerative Joint Disease Discharge Discharge Diagnosis / Problem: Right knee Degnererative Joint Disease Discharge Goals Goal(s): Decrease discomfort, Improve function, Increase independence Activity Recommendations Activity Limitations: per Instructions/Follow-up section Weightbearing Status: Right weightbearing (as tolerated) . Instructions / Follow-Up Instructions / Follow-Up New Medicine: * You will likely be taking one or more of these medications: 1. Lovenox - You will be on Lovenox for 4 weeks after surgery to prevent blood clots. The CBC blood test will need to be done every week while on Lovenox. Do not take anti- inflammatory pills (Advil or Aleve) while on Lovenox. Aspirin, 81 mg is OK. 2. Dilaudid 6mg, take 1 tab every 4 hours as needed for pain. 3. Colace & Senokot - Take to prevent constipation which can be caused by narcotics. These can be bought [id number] at the pharmacy * The most common side effects of pain medicine and iron are nausea and constipation. If nausea or constipation is too much of a problem or if you have any questions about your new medicines or doses, call [facility] at . We will try to help you manage these issues. VERY IMPORTANT TO READ AND REVIEW" Blood Clots and Blood Thinning Medicine: * You are given Lovenox during the immediate post-operative period to lessen the risk of blood clots forming in your legs and/or lungs. Lovenox is usually given for four weeks after surgery. Physical Therapy: * Do your physical therapy at home. These are the exercises you learned while in the hospital (quad sets, leg raises, calf pumps, gluteal squeezes, knee bending, and heel props.) You should do these exercises 3-4 times per day. * You will either go to inpatient rehab ([facility]), home with Home Therapy and nursing or home with outpatient rehab. You should do rehab with the therapist 2-3 times per week. You should do therapy on your own daily. * You may bear full weight on your leg with crutches or walker unless otherwise advised. Home Exercise: * You were shown a series of exercises (heel props, heel slides, etc.) in the hospital. Do these exercises three to four times each day including the exercises you were shown in physical therapy. Walking: * You may be up for short periods of time. Standing and walking for 1-2 hours at a time is usually okay. You should not stand or walk for excessive periods of time as this may cause increased pain and swelling. SELF CARE INSTRUCTIONS AFTER TOTAL KNEE REPLACEMENT A. You may need to continue a physical therapy program after discharge from the hospital. There are several options available to you. Your doctor will assist you in selecting the best one for you. 1. An out-patient facility 2 to 3 times a week for therapy or home therapy. 2. Continue working on all exercises taught to you in the hospital. Your goals should be to increase bending of your knee to 90 degrees and beyond and to fully straighten your knee. B. Your therapist will notify you when you are able to progress from a walker to a cane. C. Wear TEDS as much as possible.~ They may be removed at night for laundering. D. Do not place a pillow behind your knee when resting. A pillow at your ankle is okay. E. Ice your knee 15-20 minutes every 2-3 hours and elevate it above the level of your heart. F. You may shower on the fourth day after surgery using regular soap and water. Do not submerge until the wound is completely healed (approximately 2 weeks ). Until the fourth day after surgery, cover the incision/bandage with a bag or plastic wrap. G. Anyone who is touching your surgical incision area should wash their hands and wear gloves. H. Keep your incision covered with gauze pads under the UZAIR hose until it is dry. VERY IMPORTANT TO READ AND REVIEW A. YOU WILL BE GIVEN AN ORDER AT DISCHARGE FOR PT/INR (BLOOD WORK). PLEASE HAVE THIS DONE INSTRUCTED. PLEASE CALL OUR OFFICE AFTER YOUR BLOODWORK IS COMPLETE SO WE CAN TRACK YOUR RESULTS. IF YOU ARE GOING TO OUTPATIENT PHYSICAL THERAPY, YOU WILL NEED TO GO TO OUTPATIENT TESTING TO HAVE IT DRAWN. B. There are a few signs you need to watch for after you are home. Call [facility] if you notice any of the followin. Increased severe knee pain. Some pain is expected especially when you exercise. 2. Increased swelling in your leg or knee; pain or swelling of the calf muscle in either lower leg. 3. Any fluid drainage from the incision. 4. Shortness of breath or chest pain. 5. Numbness and tingling in the surgical extremity C. Please call [facility] at if you have any concerns or questions about your operation or recovery. The doctor or his nurse will return your call promptly. D. Do not have any elective dental work or other elective procedures done for 6 weeks after your knee replacement. When you have any invasive procedure (dental cleaning, extraction, colonoscopy etc) performed, you will need to take antibiotics to prevent infection from developing in your artificial joint. Tell your other health care providers you have an artificial joint. My office will supply you with further information and the antibiotics. Call your doctor if: * Temperature above 101 degrees F. * Pain not relieved by pain medicine ordered. * Increased drainage or redness from incision. * Notify your doctor with any questions or concerns. Follow-up Visit: You will follow-up with Dr. Godoy 10-14 days after surgery. The office number is . * You have a follow up scheduled with Dr. Godoy on 10/25/16 at 12:45 p.m. * You should schedule an outpatient physical therapy appointment with the office or your choice for approximately 2 weeks after your surgery in preparation for when your in home physical therapy is completed. You will need a prescription for that therapist, please call our office to obtain and we will fax to that therapist's office. Avoid all tobacco products. If you need help to stop smoking, call [place] at . This is a free call. Current Hospital Diet Patient's current hospital diet: Diabetes Type 2 Diet Discharge Diet Recommended Diet: Regular Diet, Diabetes Type 2 Diet Procedures Procedures Performed: Right Total Knee Arthroplasty Pending Studies Studies pending at discharge: no Laboratory Results Hemoglobin A1c Test 10/12/16 16:00 Range/Units Estimated Average Glucose 143 mg/dl Hemoglobin A1c 6.6 H 4.5-5.6 % Medical Emergencies . Who to Call and When: Medical Emergencies: If at any time you feel your situation is an emergency, please call 911 immediately. . Non-Emergent Contact Non-Emergency issues call your: Surgeon Call Non-Emergent contact if: temperature is above 101, your pain is not controlled, your pain is concerning you, wound has increased drainage, wound has increased redness, wound has increased pain, you have any medication questions . "Provider Documentation" section prepared by Faina King. . VTE Core Measure Inpt VTE Proph given/why not?: Enoxaparin (Lovenox)SQ (30 mg twice daily x 4 weeks), T.EBruce Stauffer [place] Drug Monitoring Program Search Results: patient reviewed within database, no issues identified
--- NOTE | 2016-10-14 13:05 | Pharmacy Progress Note ---
Glycemic: Assessment & Plan Date of Service Oct 14, 2016. Assessment & Plan Patient transferred off insulin drip yesterday to Novolog SSI + metformin. He has only required 11 units in the past 24 hours. BSGs ranging 106 - 186 mg/ dl. Current Regimen: * Oral agents: Metformin ER 500 mg PO daily with dinner * Basal insulin: None * Correctional Insulin: Novolog Correction per scale ACHS Goal Range: Low 110 mg/dL - High 140 mg/dL Correction Factor: 20 mg/dL/unit * Prandial insulin: Per carb ratio of 1 unit per 7 grams CHO consumed BSGs continue to improve, no changes needed to inpatient regimen at this time. Pharmacy will continue to monitor patient daily and write orders per [facility] inpatient glycemic control protocol. Thanks. RECOMMENDATIONS FOR DISCHARGE: * A1c = 6.6% on 10/12/16 --> this is diagnostic for diabetes. ADA recommendation is to treat diabetes. * Recommend initiating Metformin XR 500mg PO daily with evening meal. * Continue to titrate metformin dosing upwards as recommended. Dosage increases should be made in increments of 500 mg weekly, up to 2,000 mg/day PO, given in divided doses. Doses above 2000 mg/day may be better tolerated if divided and given 3 times per day with meals. Max: 2,550 mg/day PO, in divided doses * 72 hour supply has been prepared for patient to take home on discharge until able to obtain from [place] * Please note that the plan above was derived based on current level of insulin resistance and hospital stress. These recommendations are appropriate for inpatient admission only. Plan of care upon discharge will need to be reassessed to avoid potential outpatient hypo/hyperglycemia.
[2016-10-14 15:37] VITALS: BP 146/88; PULSE 75; TEMP 37.1; O2SAT 92
[2016-10-14] MEDS: MoRPHine SULFATE 2 MG/ML CARP IV PRN ×2 (18:09→21:23)
[2016-10-14] MEDS: METFORMIN HCL 500 MG TABCR PO SCH (18:14)
[2016-10-14] MEDS: SENNA 8.6 MG TAB PO SCH (21:17)
[2016-10-14] MEDS: TAMSULOSIN HCL 0.4 MG CAP PO SCH (21:18)
[2016-10-14 23:33] VITALS: BP 153/94; PULSE 77; TEMP 37.2; O2SAT 92
[2016-10-15] MEDS: MoRPHine SULFATE 2 MG/ML CARP IV PRN ×2 (03:16→06:04)
[2016-10-15] MEDS: HYDROmorphone HCL 2 MG TAB PO PRN ×2 (04:42→11:11)
[2016-10-15 08:00] VITALS: BP 151/94; PULSE 77; TEMP 37.2; O2SAT 97
[2016-10-15] MEDS: OXYCODONE HCL 10 MG TABCR (OXYCONTIN) PO SCH (08:25)
[2016-10-15] MEDS: PROPRANOLOL HCL 80 MG TAB PO SCH (08:26)
[2016-10-15] MEDS: CHOLECALCIFEROL 1000 INTER.UNIT TAB PO SCH (08:27)
[2016-10-15] MEDS: DOCUSATE SODIUM 100 MG CAP PO SCH (08:27)
[2016-10-15] MEDS: PANTOprazole SOD 40 MG TAB PO SCH (08:28)
[2016-10-15] MEDS: DULOXETINE HCL 60 MG CAP PO SCH (08:28)
[2016-10-15] MEDS: GABAPENTIN 300 MG CAP PO SCH (08:28)
[2016-10-15] MEDS: ENOXAPARIN 30 MG/0.3 ML SYR SQ SCH (08:29)
[2016-10-15] MEDS: MOMETASONE FUROATE 14 PUFF/1 INHALER INH SCH (08:29)
[2016-10-15] MEDS: ALBUTEROL HFA 8 GM INHALER INH PRN (08:31)
--- NOTE | 2016-10-15 08:34 | Progress Note ---
Orthopedic SOAP Note Subjective Date of Service: Oct 15, 2016. 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 Problem List Medical Problems: (1) Asthma, Unspecified Status: Chronic (2) Cellulitis Status: Acute (3) Cellulitis of left upper arm Status: Acute (4) Contusion of multiple sites Status: Acute (5) Fall Status: Acute (6) Hypertension Nos Status: Chronic (7) Hypotension Status: Acute (8) Left knee pain Status: Acute (9) Occluded PICC line Status: Acute (10) Postoperative hematoma Status: Acute (11) Postoperative pain of left knee Status: Acute (12) Rheumatoid Arthritis Status: Chronic (13) Right knee pain Status: Acute (14) Syncope Status: Acute Surgical Problems: (1) Carpal Tunnel Syndrome Status: Chronic Social History Problems: (1) Status post PICC central line placement Status: Acute Objective calves soft nontender, N/V intact, capillary refill less than 2 sec., dressing C /D/I, incision C/D/I, A&O x3, toes mobile, CMS intact has a difficult time performing a straight leg raise but certainly gives a good effort. Activates his quad. +5 strength with dorsi and plantarflexion of the right foot Date Time Temp Pulse Resp B/P (MAP) Pulse Ox O2 Delivery O2 Flow Rate FiO2 10/15/16 08:00 37.2 77 16 151/94 (113) 97 Room Air 10/14/16 23:50 Room Air 10/14/16 23:33 37.2 77 20 153/94 (113) 92 Room Air 10/14/16 15:43 Room Air 10/14/16 15:37 37.1 75 20 146/88 (107) 92 Room Air Assessment POD 3 - Right total knee arthroplasty Plan Discussed ordered pain regimen. He's okay with plan; doesn't want/need anything adjusted at this time. Tolerating regular diet Appreciate medicine and pharmacy assistance May be OOB/WBAT RLE with walker and immobilizer Will repeat x-ray (lat view) right knee; radiology aware of new order Ice and exercises as needed/tolerated PT/OT Will discuss findings with Dr. Godoy Discharge home later today with home health Has his Lovenox injection already at home Dilaudid for pain control 2 week follow up with Dr. Godoy for staple removal No other questions or concerns
[2016-10-15] MEDS ORDERED: METFORMIN HCL 500 MG TABCR PO SCH (09:00)
[2016-10-15] MEDS: INSULIN ASPART 100 UNITS/ML 3 ML PEN SC SCH ×2 (09:26→12:14)
--- NOTE | 2016-10-15 10:02 | Hospitalist Progress Note ---
Hospitalist Progress Note Date of Service Oct 15, 2016. Subjective Pt evaluation today including: conversation w/ patient, physical exam, chart review, lab review, review of studies Pain: R knee, improved PO Intake: Good Voiding: no voiding problems The patient was seen and examined this morning. Pt reports doing much better today. R knee is less painful, and he was able to walk with PT this morning. He is having occassional sharp pains in the L knee. He denies any numbness or tingling. Pt is eating and drinking without difficulty, bowels moving normally. No other acute issues. Discussed continuing metformin 500 mg daily for blood glucose. He is in agreement with this and all his questions and concerns were addressed. Constitutional: No fever, No chills, No sweats Respiratory: No cough, No shortness of breath, No dyspnea on exertion Cardiovascular: No chest pain, No palpitations Abdomen: No pain, No nausea, No vomiting, No diarrhea, No constipation Musculoskeletal: + joint pain (R knee, improving), No muscle pain Male : No dysuria Endo: No fatigue Skin: No rash, No itch Objective Vital Signs Date Time Temp Pulse Resp B/P (MAP) Pulse Ox O2 Delivery O2 Flow Rate FiO2 10/15/16 08:00 37.2 77 16 151/94 (113) 97 Room Air 10/14/16 23:50 Room Air 10/14/16 23:33 37.2 77 20 153/94 (113) 92 Room Air 10/14/16 15:43 Room Air 10/14/16 15:37 37.1 75 20 146/88 (107) 92 Room Air Physical Exam Notes: General Appearance: WD/WN, no apparent distress, + obese Eyes: PERRL, EOMI ENT: hearing grossly normal, pharynx normal Neck: supple, no JVD Respiratory/Chest: lungs clear, no respiratory distress, no accessory muscle use Cardiovascular: regular rate, rhythm, no murmur Abdomen: normal bowel sounds, non tender, soft Extremities: + R knee wrapped with ALICE, dressing C/D/I, non-tender, + pedal edema (in RLE. No edema in the left.) Neurologic/Psychiatric: alert, normal mood/affect, oriented x 3 Skin: normal color, warm/dry Laboratory Results Last 24 Hours Test 10/14/16 12:25 10/14/16 17:09 10/14/16 20:36 10/15/16 08:02 Bedside Glucose 109 mg/dl 99 mg/dl 137 mg/dl 120 mg/dl Assessment and Plan 61 y/o male with a history of HTN, COPD, DM II, anxiety, BPH, and GERD who presents s/p right TKA with Dr. Godoy on 10/12 for medical management. S/p right TKA--POD #1 - Pain management, DVT prophylaxis, and PT/OT as per primary team - will need all prescriptions refilled upon discharge to home. - Pt plans to go home with home health services today - CM assisting HTN--stable - Cont losartanon discharge with stable Cr. and BP - Continue propranolol 80 mg PO BID - Cover with hydralazine 10 mg IV q6h prn SBP >180 COPD--stable - Continue mometasone 1 puff inh qd and albuterol prn DM II--last HgbA1c checked 06/21/16 was 6.7. Pt not currently on medications for this - PT required insulin gtt overnight on 10/13 for BG> 400. He has been transitioned off this and started on Metformin 500 mg QPM along with ISS with accuchecks ACHS. Continue metformin at time of discharge. - HgbA1c 6.6 - certified diabetes educator was in to see the patient- appreciate - Pharmacy consulted for glycemic control by primary team Anxiety -Continue hydroxyzine 10 mg PO BID prn BPH -Continue Flomax 0.4 mg PO qhs GERD -Prilosec converted to Protonix Code Status: FULL CODE Disposition: From home, CM to assist with d/c planning, discharge per primary team today.
[2016-10-15] MEDS ORDERED: GLCSR500 PO (10:03)
[2016-10-15 11:19] VITALS: BP 151/94; PULSE 77; TEMP 37.2; O2SAT 97
[2016-10-15] MEDS: MoRPHine SULFATE 4 MG/ML 1 ML CARP\\VIAL IV PRN (11:58)
== END 2016-10-15 12:45 | disposition home health service (06) | DRG 470 ==
LOC: C.ACU 07:09 → C.3E 09:30 → ENRESERV 13:51
PROVIDERS: ADMIT Physical Medicine & Rehabilitation Sports Medicine; ATTEND Physical Medicine & Rehabilitation Sports Medicine
PROC: 0SRC0J9 Replacement of Right Knee Joint with Synthetic Substitute, Cemented, Open Approach (ICD-10-PCS; principal; 2016-10-12 09:45)
DX: M17.11 Unilateral primary osteoarthritis, right knee (principal); M23.41 Loose body in knee, right knee; J45.909 Unspecified asthma, uncomplicated; I10 Essential (primary) hypertension; J44.9 Chronic obstructive pulmonary disease, unspecified; K21.9 Gastro-esophageal reflux disease without esophagitis; N40.0 Benign prostatic hyperplasia without lower urinary tract symptoms; E11.9 Type 2 diabetes mellitus without complications; E66.9 Obesity, unspecified; Z79.899 Other long term (current) drug therapy; Z86.14 Personal history of Methicillin resistant Staphylococcus aureus infection; Z96.652 Presence of left artificial knee joint; Z68.37 Body mass index [BMI] 37.0-37.9, adult; Z87.891 Personal history of nicotine dependence; Z82.49 Family history of ischemic heart disease and other diseases of the circulatory system; Z82.5 Family history of asthma and other chronic lower respiratory diseases; Z82.3 Family history of stroke

== ENCOUNTER → 2016-12-06 | Outpatient (CLI) | payer OTHER ==
[~2016-12-06] MED LIST changes: -ALBUTEROL 0.083% NEBU SOLN 3 ML VIAL INH ONE; -BUPIVACAINE 0.25% 30 ML VIAL ONE; -BUPIVACAINE 0.5 % 5 MG/1 ML PF 10ML VIAL ONE; +CLC100 PO; -CeleBREX 200 MG CAP PO SCH; -DAPTOmycin IV 500 MG in SODIUM CHLORIDE 0.9% 50ML 50 ML IV SCH; -DICL50TA3 PO; +GLCSR500 PO; -LACTATED RINGER'S 1000ML 1,000 ML IV SCH; -LACTATED RINGER'S 1000ML 500 ML IV ONE; -LACTATED RINGER'S 1000ML IV SCH; +LVNIS30 SQ; -ROPIVACAINE 5MG/ML 30 ML 150 MG, BUPIVACAINE/EPINEPHR 0.5% MPF 30 ML, KETOROLAC TROMETH... INFIL SCH; -SPRIN/30 INH; -TRANEXAMIC ACID INJ 1,000 MG in SODIUM CHLORIDE 0.9% 100ML 100 ML IV SCH; -[UNRECOGNIZED DRUG - REMARK] SCH
--- NOTE | 2016-12-06 14:54 | DIAGNOSTIC IMAGING REPORT ---
R KNEE 3 VIEWS CLINICAL HISTORY: F/U RIGHT TKA postoperative evaluation COMPARISON: 11/28/2015 DISCUSSION: Anatomic alignment status post bilateral total knee arthroplasties. Possible small right effusion. Good contact between prosthetic and underlying bone structures. Mild soft tissue edema. IMPRESSION: 1. Bilateral total knee arthroplasties in good position. 2. Small right joint effusion with mild prepatellar soft tissue edema. The above report was generated using voice recognition software. It may contain grammatical, syntax or spelling errors. Electronically signed by: Cuco Wilson M.D. 12/06/2016 2:53 PM Dictated Date/Time: 12/06/2016 2:50 PM
== END | disposition home or self-care (01) ==
LOC: C.RDSM 14:29
PROVIDERS: ATTEND Physician Assistant
DX: Z96.653 Presence of artificial knee joint, bilateral (principal); M25.461 Effusion, right knee

== ENCOUNTER 2017-05-07 15:36 | Inpatient (IN) | payer OTHER ==
[~2017-05-07] VITALS: Ht 180.3 cm; Wt 122.0 kg
[~2017-05-07 15:36] MED LIST changes: +ACET-1138 PO; -DLD/2 PO; -GLCSR500 PO; -HYDR4TAB2 PO; -LVNIS30 SQ; +SILD100T PO; +SPRIN/30 INH
[2017-05-07] MEDS ORDERED: SBTSL/8 PO (15:44)
[2017-05-07] MEDS ORDERED: SODIUM CHLORIDE 0.9% 1000ML 1,000 ML IV ONE (15:45)
[2017-05-07] MEDS ORDERED: VANCOMYCIN IV 1,000 MG in SODIUM CHLORIDE 0.9% 250ML 250 ML IV STA (15:45)
--- NOTE | 2017-05-07 16:35 | DIAGNOSTIC IMAGING REPORT ---
R ELBOW MIN 3 VIEWS ROUTINE CLINICAL HISTORY: r/o metal foreign body (possible ivda) foreign body COMPARISON: None. DISCUSSION: The bones and joint spaces appear intact. There is no evidence of fracture, dislocation or bony disease. There is no evidence for soft tissue swelling. No evidence for radiopaque foreign body IMPRESSION: Negative study. The above report was generated using voice recognition software. It may contain grammatical, syntax or spelling errors. Electronically signed by: Cuco Wilson M.D. 05/07/2017 4:34 PM Dictated Date/Time: 05/07/2017 4:33 PM
[2017-05-07 17:06] LABS: BASO % 0.2 %; BASO ABS # 0.02 K/uL (0-0.2); EOS % 3.6 %; EOS ABS # 0.33 K/uL (0-0.5); HEMATOCRIT 40.1 % (42-52); HEMOGLOBIN 13.8 g/dL (14.0-18.0); IG# 0.03 K/uL (0.00-0.02); LYMPH % 17.8 %; LYMPH ABS # 1.65 K/uL (1.2-3.4); MEAN CELL VOLUME 84.1 fL (80-100); MEAN CORPUSCULAR HEMOGLOBIN 28.9 pg (25-34); MEAN CORPUSCULAR HGB CONC 34.4 g/dl (32-36); MEAN PLATELET VOLUME 8.9 fL (7.4-10.4); MONO % 11.3 %; MONO ABS # 1.05 K/uL (0.11-0.59); NEUT % 66.8 %; PLATELET COUNT 155 K/uL (130-400); RED CELL DISTRIBUTION WIDTH CV 13.5 % (11.5-14.5); RED CELL DISTRIBUTION WIDTH SD 41.2 fL (36.4-46.3); WHITE BLOOD COUNT 9.28 K/uL (4.8-10.8)
[2017-05-07 17:24] LABS: ALBUMIN 3.4 gm/dl (3.4-5.0); CALCIUM 8.4 mg/dl (8.5-10.1); CREATININE 1.12 mg/dl (0.60-1.40); POTASSIUM 4.3 mmol/L (3.5-5.1)
[2017-05-07] MEDS ORDERED: DOCU100C31 PO (17:35)
[2017-05-07] MEDS ORDERED: SUCR1TAB29 PO (17:35)
[2017-05-07] MEDS ORDERED: PROP1CAP PO (17:35)
--- NOTE | 2017-05-07 18:27 | DIAGNOSTIC IMAGING REPORT ---
EXTREMITY NONVASCULAR LIMITED CLINICAL HISTORY: Right upper arm infection. R/O abscess pain TECHNIQUE: Ultrasound COMPARISON STUDY: None FINDINGS: No evidence for abscess collection at the site of nodularity. There is, however evidence for superficial thrombophlebitis in this region involving the mid to distal cephalic vein. There is moderate degree of surrounding soft tissue edematous change. All remaining venous structures appear unremarkable. IMPRESSION: 1. Mild soft tissue edema and a focal superficial thrombophlebitis of the cephalic vein at the site of clinically palpable nodularity, edematous change. 2. No evidence for abscess collection or foreign body by ultrasound criteria. The above report was generated using voice recognition software. It may contain grammatical, syntax or spelling errors. Electronically signed by: Cuco Wilson M.D. 05/07/2017 6:26 PM Dictated Date/Time: 05/07/2017 6:23 PM
--- NOTE | 2017-05-07 18:29 | EMERGENCY ROOM VISIT NOTE ---
ED Visit Note First contact with patient: 15:42 I have seen and examined this patient with Carlos Vasquez and generally agree with the treatment plan as discussed. Problem List Medical Problems: (1) Abdominal pain Status: Resolved (2) Asthma, Unspecified Status: Chronic (3) Hypertension Nos Status: Chronic (4) Rheumatoid Arthritis Status: Chronic Surgical Problems: (1) Carpal Tunnel Syndrome Status: Chronic Current/Historical Medications Scheduled Acetaminophen (Tylenol Extra Strength), 1,500 MG PO TID Cholecalciferol (Vitamin D3), 2,000 INTER.UNIT PO QAM Docusate Sodium (Docusate Sodium), 100 MG PO TID Gabapentin (Neurontin), 600 MG PO QAM Losartan Potassium (Cozaar), 100 MG PO QAM Mometasone Furoate (Inhalation (Asmanex Twisthaler 120 Me), 1 PUFF INH DAILY Omeprazole (Prilosec), 40 MG PO QAM Propranolol HCl Sustained-Rele (Inderal Xl), 80 MG PO BID Sildenafil Citrate (Viagra), 100 MG PO PRN Sucralfate (Carafate), 1 GM PO ACHS Tamsulosin Hcl (Flomax), 0.4 MG PO QPM Tiotropium [place] (Spiriva Handihaler), 1 CAP INH DAILY Scheduled PRN Albuterol Sulfate (Proventil Hfa), 2 PUFFS INH QID PRN for Shortness of Breath Hydroxyzine HCl (Hydroxyzine HCl), 10 MG PO BID PRN for Anxiety Allergies Coded Allergies: Acesulfame Potassium (Unverified Allergy, Severe, SEVERE RASH & VOMIT, ) Buprenorphine/Naloxone (Unverified Allergy, Severe, SEVERE RASH & VOMIT, ) Sulfa Antibiotics (Verified Allergy, Unknown, RASH / ITCHINESS, 05/07/17) Vital Signs Date Time Temp Pulse Resp B/P (MAP) Pulse Ox O2 Delivery O2 Flow Rate FiO2 05/07/17 15:39 36.7 115 18 128/78 92 Room Air Laboratory Results 05/07/17 16:53 Red Blood Count 4.77, Mean Corpuscular Volume 84.1, Mean Corpuscular Hemoglobin 28.9, Mean Corpuscular Hemoglobin Concent 34.4, Mean Platelet Volume 8.9, Neutrophils (%) (Auto) 66.8, Lymphocytes (%) (Auto) 17.8, Monocytes (%) (Auto) 11.3, Eosinophils (%) (Auto) 3.6, Basophils (%) (Auto) 0.2, Neutrophils # (Auto ) 6.20, Lymphocytes # (Auto) 1.65, Monocytes # (Auto) 1.05, Eosinophils # (Auto ) 0.33, Basophils # (Auto) 0.02 05/07/17 16:28 Test 05/07/17 16:28 05/07/17 16:53 05/07/17 16:57 05/07/17 18:16 Anion Gap 4.0 mmol/L (3-11) Est Creatinine Clear Calc Drug Dose 92.0 ml/min Estimated GFR () 81.7 Estimated GFR (Non- 70.5 BUN/Creatinine Ratio 12.2 (10-20) Calcium Level 8.4 mg/dl (8.5-10.1) Total Bilirubin 0.7 mg/dl (0.2-1) Aspartate Amino Transf (AST/SGOT) 25 U/L (15-37) Alanine Aminotransferase (ALT/SGPT) 27 U/L (12-78) Alkaline Phosphatase 116 U/L (45-117) C-Reactive Protein 8.19 mg/dl (0-0.29) Total Protein 8.0 gm/dl (6.4-8.2) Albumin 3.4 gm/dl (3.4-5.0) Globulin 4.6 gm/dl (2.5-4.0) Albumin/Globulin Ratio 0.7 (0.9-2) Chemistry Specimen Hemolysis White Blood Count 9.28 K/uL (4.8-10.8) Red Blood Count 4.77 M/uL (4.7-6.1) Hemoglobin 13.8 g/dL (14.0-18.0) Hematocrit 40.1 % (42-52) Mean Corpuscular Volume 84.1 fL (80-100) Mean Corpuscular Hemoglobin 28.9 pg (25-34) Mean Corpuscular Hemoglobin Concent 34.4 g/dl (32-36) Platelet Count 155 K/uL (130-400) Mean Platelet Volume 8.9 fL (7.4-10.4) Neutrophils (%) (Auto) 66.8 % Lymphocytes (%) (Auto) 17.8 % Monocytes (%) (Auto) 11.3 % Eosinophils (%) (Auto) 3.6 % Basophils (%) (Auto) 0.2 % Neutrophils # (Auto) 6.20 K/uL (1.4-6.5) Lymphocytes # (Auto) 1.65 K/uL (1.2-3.4) Monocytes # (Auto) 1.05 K/uL (0.11-0.59) Eosinophils # (Auto) 0.33 K/uL (0-0.5) Basophils # (Auto) 0.02 K/uL (0-0.2) RDW Standard Deviation 41.2 fL (36.4-46.3) RDW Coefficient of Variation 13.5 % (11.5-14.5) Immature Granulocyte % (Auto) 0.3 % Immature Granulocyte # (Auto) 0.03 K/uL (0.00-0.02) Erythrocyte Sedimentation Rate 41 mm/hr (0-14) Bedside Lactic Acid Venous 1.46 mmol/L (0.90-1.70) Medications Administered Medications (Trade) Dose Ordered Sig/Tash Route Start Time Stop Time Status Last Admin Dose Admin Sodium Chloride 1,000 ml @ 999 mls/hr Q1H1M ONCE IV 05/07/17 15:45 05/07/17 16:45 DC 05/07/17 17:13 999 MLS/HR Vancomycin HCl 1000 mg/Sodium Chloride 270 ml @ 125 mls/hr NOW STAT IV 05/07/17 15:45 05/07/17 17:54 DC 05/07/17 17:13 125 MLS/HR Departure Information Referrals Doc Morejon M.D. (PCP) Patient Instructions My [facility]
[2017-05-07 18:52] LABS: PTT PATIENT 31.1 SECONDS (21.0-31.0)
--- NOTE | 2017-05-07 19:25 | EMERGENCY ROOM VISIT NOTE ---
History First contact with patient: 15:42 Chief Complaint: INFECTION Stated Complaint: POSSIBLE MRSA INFECTION IN ARM Nursing Triage Summary: pt c/o infected wound on right FA hx MRSA 3 x History of Present Illness The patient is a 62 year old male who presents to the Emergency Room with complaints of worsening infection of the right upper arm. The patient states that he has followed with his primary care physician for this and was started on an unknown antibiotic 2 days ago. The patient states antibiotic has not been helping his symptoms, and his infection feels worse. Patient does have a history of MRSA and has required surgical washout of several previous similar wounds. The patient reports that he initially had a metal foreign body in the right arm that his was able to remove. Shortly after this it became infected and was with purulent drainage. He has not had purulence for the past 2 days. The patient has been running a low-grade fever. He denies additional pain or injury. He rates his pain a 9/10. Review of Systems More than 10 systems were reviewed and otherwise negative with the exception of history of present illness. Past Medical/Surgical History Medical Problems: (1) Abdominal pain (2) Asthma, Unspecified (3) Hypertension Nos (4) Hypotension arterial (5) Left knee DJD (6) MRSA infection (7) Preseptal cellulitis of right upper eyelid (8) Rheumatoid Arthritis (9) Right knee DJD (10) Syncope and collapse Surgical Problems: (1) Carpal Tunnel Syndrome Family History COPD (chronic obstructive pulmonary disease) Hypertension Myocardial infarction Stroke Social History Smoking Status: Former Smoker Alcohol Use: none Drug Use: none Marital Status: Housing Status: lives with family Occupation Status: retired Current/Historical Medications Scheduled Acetaminophen (Tylenol Extra Strength), 1,500 MG PO TID Cholecalciferol (Vitamin D3), 2,000 INTER.UNIT PO QAM Docusate Sodium (Docusate Sodium), 100 MG PO TID Gabapentin (Neurontin), 600 MG PO QAM Losartan Potassium (Cozaar), 100 MG PO QAM Mometasone Furoate (Inhalation (Asmanex Twisthaler 120 Me), 1 PUFF INH DAILY Omeprazole (Prilosec), 40 MG PO QAM Propranolol HCl Sustained-Rele (Inderal Xl), 80 MG PO BID Sildenafil Citrate (Viagra), 100 MG PO PRN Sucralfate (Carafate), 1 GM PO ACHS Tamsulosin Hcl (Flomax), 0.4 MG PO QPM Tiotropium [place] (Spiriva Handihaler), 1 CAP INH DAILY Scheduled PRN Albuterol Sulfate (Proventil Hfa), 2 PUFFS INH QID PRN for Shortness of Breath Hydroxyzine HCl (Hydroxyzine HCl), 10 MG PO BID PRN for Anxiety Physical Exam Vital Signs Date Time Temp Pulse Resp B/P (MAP) Pulse Ox O2 Delivery O2 Flow Rate FiO2 05/07/17 18:35 89 18 135/80 96 Room Air 05/07/17 15:39 36.7 115 18 128/78 92 Room Air Physical Exam VITALS: Vitals are noted on the nurse's note and reviewed by myself. Vital signs stable. GENERAL: Well-developed, well-nourished, white male, who is in no acute distress and resting comfortably. Patient is cooperative with the examination. HEART: Regular rate and rhythm without murmurs gallops or rubs. LUNGS: Clear to auscultation bilaterally without wheezes, rales or rhonchi. No retractions or accessory muscle use. ABDOMEN: Positive normal bowel sounds x 4. Soft, nontender, without masses or organomegaly. No guarding or rebound tenderness. MUSCULOSKELETAL: There is an area of cellulitis essentially extending from the right antecubital fossa to the proximal humerus more anteriorly and laterally than posteriorly. This appears to encompass greater than 50% of the right upper arm. There is no obvious fluctuance or purulence. The wound is with a scabbed lesion in the antecubital fossa, which is evidently where a metal foreign body previously was in place. The patient has full sensation and range of motion into the distal extremity. Warranty Clerk strength is 5/5 in the right hand. No tenderness of the wrist or forearm. No obvious lymphangitic streaking noted. NEURO: Patient was alert and oriented to person place and time. CN II through XII grossly intact. Medical Decision & Procedures ER Provider Diagnostic Interpretation: R ELBOW MIN 3 VIEWS ROUTINE CLINICAL HISTORY: r/o metal foreign body (possible ivda) foreign body COMPARISON: None. DISCUSSION: The bones and joint spaces appear intact. There is no evidence of fracture, dislocation or bony disease. There is no evidence for soft tissue swelling. No evidence for radiopaque foreign body IMPRESSION: Negative study. EXTREMITY NONVASCULAR LIMITED CLINICAL HISTORY: Right upper arm infection. R/O abscess pain TECHNIQUE: Ultrasound COMPARISON STUDY: None FINDINGS: No evidence for abscess collection at the site of nodularity. There is, however evidence for superficial thrombophlebitis in this region involving the mid to distal cephalic vein. There is moderate degree of surrounding soft tissue edematous change. All remaining venous structures appear unremarkable. IMPRESSION: 1. Mild soft tissue edema and a focal superficial thrombophlebitis of the cephalic vein at the site of clinically palpable nodularity, edematous change. 2. No evidence for abscess collection or foreign body by ultrasound criteria. Laboratory Results 05/07/17 16:53 Red Blood Count 4.77, Mean Corpuscular Volume 84.1, Mean Corpuscular Hemoglobin 28.9, Mean Corpuscular Hemoglobin Concent 34.4, Mean Platelet Volume 8.9, Neutrophils (%) (Auto) 66.8, Lymphocytes (%) (Auto) 17.8, Monocytes (%) (Auto) 11.3, Eosinophils (%) (Auto) 3.6, Basophils (%) (Auto) 0.2, Neutrophils # (Auto ) 6.20, Lymphocytes # (Auto) 1.65, Monocytes # (Auto) 1.05, Eosinophils # (Auto ) 0.33, Basophils # (Auto) 0.02 05/07/17 16:28 Test 05/07/17 16:28 05/07/17 16:53 05/07/17 16:55 05/07/17 16:57 Anion Gap 4.0 mmol/L (3-11) Est Creatinine Clear Calc Drug Dose 92.0 ml/min Estimated GFR () 81.7 Estimated GFR (Non- 70.5 BUN/Creatinine Ratio 12.2 (10-20) Calcium Level 8.4 mg/dl (8.5-10.1) Total Bilirubin 0.7 mg/dl (0.2-1) Aspartate Amino Transf (AST/SGOT) 25 U/L (15-37) Alanine Aminotransferase (ALT/SGPT) 27 U/L (12-78) Alkaline Phosphatase 116 U/L (45-117) C-Reactive Protein 8.19 mg/dl (0-0.29) Total Protein 8.0 gm/dl (6.4-8.2) Albumin 3.4 gm/dl (3.4-5.0) Globulin 4.6 gm/dl (2.5-4.0) Albumin/Globulin Ratio 0.7 (0.9-2) Chemistry Specimen Hemolysis White Blood Count 9.28 K/uL (4.8-10.8) Red Blood Count 4.77 M/uL (4.7-6.1) Hemoglobin 13.8 g/dL (14.0-18.0) Hematocrit 40.1 % (42-52) Mean Corpuscular Volume 84.1 fL (80-100) Mean Corpuscular Hemoglobin 28.9 pg (25-34) Mean Corpuscular Hemoglobin Concent 34.4 g/dl (32-36) Platelet Count 155 K/uL (130-400) Mean Platelet Volume 8.9 fL (7.4-10.4) Neutrophils (%) (Auto) 66.8 % Lymphocytes (%) (Auto) 17.8 % Monocytes (%) (Auto) 11.3 % Eosinophils (%) (Auto) 3.6 % Basophils (%) (Auto) 0.2 % Neutrophils # (Auto) 6.20 K/uL (1.4-6.5) Lymphocytes # (Auto) 1.65 K/uL (1.2-3.4) Monocytes # (Auto) 1.05 K/uL (0.11-0.59) Eosinophils # (Auto) 0.33 K/uL (0-0.5) Basophils # (Auto) 0.02 K/uL (0-0.2) RDW Standard Deviation 41.2 fL (36.4-46.3) RDW Coefficient of Variation 13.5 % (11.5-14.5) Immature Granulocyte % (Auto) 0.3 % Immature Granulocyte # (Auto) 0.03 K/uL (0.00-0.02) Erythrocyte Sedimentation Rate 41 mm/hr (0-14) Prothrombin Time 10.0 SECONDS (9.0-12.0) Prothromb Time International Ratio 1.0 (0.9-1.1) Activated Partial Thromboplast Time 31.1 SECONDS (21.0-31.0) Partial Thromboplastin Ratio 1.2 Bedside Lactic Acid Venous 1.46 mmol/L (0.90-1.70) Test 05/07/17 18:55 Medications Administered Medications (Trade) Dose Ordered Sig/Tash Route Start Time Stop Time Status Last Admin Dose Admin Sodium Chloride 1,000 ml @ 999 mls/hr Q1H1M ONCE IV 05/07/17 15:45 05/07/17 16:45 DC 05/07/17 17:13 999 MLS/HR Vancomycin HCl 1000 mg/Sodium Chloride 270 ml @ 125 mls/hr NOW STAT IV 05/07/17 15:45 05/07/17 17:54 DC 05/07/17 17:13 125 MLS/HR ED Course Physical exam and history were performed. Nursing notes, EMR, and Medication List were personally reviewed. Patient appears to have a cellulitis of the right upper arm. Based on the location and history I do have concern for IV drug abuse. IV access was established and labs are obtained. Cultures were gathered. X-ray and ultrasound of the area was performed. The patient was given an initial dose of IV vancomycin here in the department. The patient's blood work is as above and was reviewed. He does not have a significantly elevated white blood cell count. He is minimally anemic. His inflammatory markers are notably elevated. Lactic acid is negative with cultures pending. X-ray does not show foreign body. Ultrasound shows a superficial thrombophlebitis but no obvious fluid collection otherwise. The case was discussed with attending physician, Dr. Fairchild, who also independently evaluated the patient. Considering the patient has failed 2 days of outpatient antibiotics and has a worsening greater than 50% cellulitis we do not feel he is well for discharge home. The case was discussed with case management, as well as the on-call hospitalist. Please see their dictation for further patient course, plan, and disposition. The chart was completed utilizing [employer] Speech Voice Recognition Software. Grammatical errors, random word insertions, pronoun errors, and incomplete sentences are an occasional consequence of this system due to software limitations, ambient noise, and hardware issues. Any formal questions or concerns about the content, text, or information contained within the body of this dictation should be directly addressed to the provider for clarification. . Medical Decision Differential diagnosis: Etiologies such as cellulitis, abscess, MRSA infection, DVT, necrotizing fasciitis, dermatitis, drug eruption, as well as others were entertained.. [place] Drug Monitoring Program Search Results: patient reviewed within database (Previously on high doses of oral Dilaudid. Now on Subutex.), see additional documentation Medication Reconcilliation Current Medication List: was personally reviewed by me Blood Pressure Screening Patient's blood pressure: Normal blood pressure Impression Primary Impression: Cellulitis of right upper arm Additional Impressions: Superficial thrombophlebitis Failure of outpatient treatment Departure Information Referrals Doc Morejon M.D. (PCP) Patient Instructions My [facility] Problem Qualifiers
[2017-05-07] MEDS ORDERED: MAGNESIUM HYDROXIDE SUSP 30 ML UDC PO PRN (20:00)
[2017-05-07] MEDS ORDERED: ALUMINUM/MAGNESIUM/SIMETH (MAALOX MAX) 30 ML UDC PO PRN (20:00)
[2017-05-07] MEDS ORDERED: hydrOXYzine HCL 10 MG TAB PO PRN (20:00)
[2017-05-07] MEDS ORDERED: ALBUTEROL HFA 8 GM INHALER INH PRN (20:00)
[2017-05-07] MEDS ORDERED: PIPERACILL/TAZOBAC CONSULT ACTIVE PRN (20:00)
[2017-05-07] MEDS ORDERED: POLYETHYLENE (MIRALAX) 17 GM PACK PO PRN (20:00)
[2017-05-07] MEDS ORDERED: VANCOMYCIN CONSULT ACTIVE PRN (20:00)
--- NOTE | 2017-05-07 20:43 | History and Physical ---
History & Physical Date & Time of Service: May 07, 2017 at 20:16 Chief Complaint: Possible Mrsa Infection In Arm Primary Care Physician: Doc Morejon M.D. History of Present Illness Source: patient Patient is 62 year old male with a PMH of COPD, HTN, Anxiety, GERD and IV drug abuse that presented to [facility] with a 4 day history of R upper extremity swelling and erythema. Patient states that he was rebuilding his trailer 3-4 days ago when he got a piece of metal in his R upper extremity near his antecubital fossa. His said his was able to remove it. On the area started becoming mildly red and and swollen. [facility] which he started evening (he is unsure of what antibiotic it was). Yesterday and today the area of redness has worsened and spread up his left arm, longterm up his bicep. He rates the pain as a 7/10 in severity. He has not taken any pain medications for this pain. He denies any systemic symptoms such as fevers, chills, fatigue, loss of appetite, nausea or vomiting. In the ED his vitals were stable except for a heart rate of 115. His labs were significant for a normal WCC, and an ESR of 41. Imaging included an elbow XRAY which was normal and an upper extremity ultrasound which showed mild soft tissue edema and focal superficial thrombophlebitis of the cephalic vein. Of note he does have a history of heroin use with his last time of use being 8 years ago. He denies any current IV drug use. He does have a history of MRSA infections in the left upper extremity and R hand. He has a history of narcotic med abuse for which he was asked to leave two local pain management clinics. 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 (11) Left knee pain (12) Low back pain (13) MRSA infection (14) Occluded PICC line (15) Postoperative hematoma (16) Postoperative pain of left knee (17) Preseptal cellulitis of right upper eyelid (18) Rheumatoid Arthritis (19) Right knee DJD (20) Right knee pain (21) Syncope (22) Syncope and collapse Surgical Problems: (1) Carpal Tunnel Syndrome Family History COPD (chronic obstructive pulmonary disease) Hypertension Myocardial infarction Stroke Social History Smoking Status: Former Smoker (90 pack year) Smokeless Tobacco Use: No Alcohol Use: none Drug Use: none Marital Status: Housing status: lives with family Occupational Status: retired Immunizations History of Influenza Vaccine: Yes Influenza Vaccine Date: Nov 16, 2010 History of Tetanus Vaccine?: Unknown History of Pneumococcal: No History of Hepatitis B Vaccine: Unknown Allergies Coded Allergies: Acesulfame Potassium (Unverified Allergy, Severe, SEVERE RASH & VOMIT, ) Buprenorphine/Naloxone (Unverified Allergy, Severe, SEVERE RASH & VOMIT, ) Sulfa Antibiotics (Verified Allergy, Unknown, RASH / ITCHINESS, 05/07/17) Home Medications Scheduled Acetaminophen (Tylenol Extra Strength), 1,500 MG PO TID Cholecalciferol (Vitamin D3), 2,000 INTER.UNIT PO QAM Docusate Sodium (Docusate Sodium), 100 MG PO TID Gabapentin (Neurontin), 600 MG PO QAM Losartan Potassium (Cozaar), 100 MG PO QAM Mometasone Furoate (Inhalation (Asmanex Twisthaler 120 Me), 1 PUFF INH DAILY Omeprazole (Prilosec), 40 MG PO QAM Propranolol HCl Sustained-Rele (Inderal Xl), 80 MG PO BID Sildenafil Citrate (Viagra), 100 MG PO PRN Sucralfate (Carafate), 1 GM PO ACHS Tamsulosin Hcl (Flomax), 0.4 MG PO QPM Tiotropium [place] (Spiriva Handihaler), 1 CAP INH DAILY Scheduled PRN Albuterol Sulfate (Proventil Hfa), 2 PUFFS INH QID PRN for Shortness of Breath Hydroxyzine HCl (Hydroxyzine HCl), 10 MG PO BID PRN for Anxiety Review of Systems Constitutional: No fever, No chills, No sweats Respiratory: + shortness of breath (chronic), + dyspnea on exertion (chronic), No cough, No sputum Cardiovascular: No chest pain, No edema, No palpitations Abdomen: No pain, No nausea, No vomiting, No diarrhea, No constipation Musculoskeletal: + joint pain, + muscle pain, + swelling, No calf pain Genitourinary - Male: No hematuria, No dysuria Neurologic: No memory loss, No paralysis, No numbness/tingling Psychiatric: No depression symptoms, No anhedonism Endocrine: No fatigue, No excessive thirst Hematologic / Lymphatic: No abnormal bleeding/bruising, No clotting problems Physical Exam Vital Signs Date Time Temp Pulse Resp B/P (MAP) Pulse Ox O2 Delivery O2 Flow Rate FiO2 05/07/17 20:00 82 18 129/79 96 Room Air 05/07/17 18:35 89 18 135/80 96 Room Air 05/07/17 15:39 36.7 115 18 128/78 92 Room Air General Appearance: WD/WN, no apparent distress, + obese Head: normocephalic, atraumatic Eyes: normal inspection, PERRL ENT: hearing grossly normal, pharynx normal Neck: supple, thyroid normal, no JVD, no carotid bruits Respiratory/Chest: lungs clear, no respiratory distress, no accessory muscle use, + decreased breath sounds (bilateral) Cardiovascular: regular rate, rhythm, no edema, no murmur, normal peripheral pulses Abdomen/GI: normal bowel sounds, soft, + tenderness (mild epigastric and umbilical tenderness secondary to a ventral abdominal hernia) Back: normal inspection, no muscle spasm Extremities/Musculoskelatal: no calf tenderness, no pedal edema, + inflammation , + swelling, + pertinent finding (erythema and tenderness located in the R antecubital fossa and spread longterm up the bicep. no drainage from the area. Decreased flexion of R forearm to only 80 degrees) Neurologic/Psych: alert, normal mood/affect, oriented x 3 Diagnostics Laboratory Results Results Past 24 Hours Test 05/07/17 16:28 05/07/17 16:53 05/07/17 16:55 05/07/17 16:57 Range/Units Sodium Level 134 136-145 mmol/L Potassium Level 4.3 3.5-5.1 mmol/L Chloride Level 102 98-107 mmol/L Carbon Dioxide Level 28 21-32 mmol/L Anion Gap 4.0 3-11 mmol/L Blood Urea Nitrogen 14 7-18 mg/dl Creatinine 1.12 0.60-1.40 mg/dl Est Creatinine Clear Calc Drug Dose 92.0 ml/min Estimated GFR () 81.7 Estimated GFR (Non- 70.5 BUN/Creatinine Ratio 12.2 10-20 Random Glucose 144 70-99 mg/dl Calcium Level 8.4 8.5-10.1 mg/dl Total Bilirubin 0.7 0.2-1 mg/dl Aspartate Amino Transf (AST/SGOT) 25 15-37 U/L Alanine Aminotransferase (ALT/SGPT) 27 12-78 U/L Alkaline Phosphatase 116 45-117 U/L C-Reactive Protein 8.19 0-0.29 mg/dl Total Protein 8.0 6.4-8.2 gm/dl Albumin 3.4 3.4-5.0 gm/dl Globulin 4.6 2.5-4.0 gm/dl Albumin/Globulin Ratio 0.7 0.9-2 Chemistry Specimen Hemolysis White Blood Count 9.28 4.8-10.8 K/uL Red Blood Count 4.77 4.7-6.1 M/uL Hemoglobin 13.8 14.0-18.0 g/dL Hematocrit 40.1 42-52 % Mean Corpuscular Volume 84.1 80-100 fL Mean Corpuscular Hemoglobin 28.9 25-34 pg Mean Corpuscular Hemoglobin Concent 34.4 32-36 g/dl Platelet Count 155 130-400 K/uL Mean Platelet Volume 8.9 7.4-10.4 fL Neutrophils (%) (Auto) 66.8 % Lymphocytes (%) (Auto) 17.8 % Monocytes (%) (Auto) 11.3 % Eosinophils (%) (Auto) 3.6 % Basophils (%) (Auto) 0.2 % Neutrophils # (Auto) 6.20 1.4-6.5 K/uL Lymphocytes # (Auto) 1.65 1.2-3.4 K/uL Monocytes # (Auto) 1.05 0.11-0.59 K/uL Eosinophils # (Auto) 0.33 0-0.5 K/uL Basophils # (Auto) 0.02 0-0.2 K/uL RDW Standard Deviation 41.2 36.4-46.3 fL RDW Coefficient of Variation 13.5 11.5-14.5 % Immature Granulocyte % (Auto) 0.3 % Immature Granulocyte # (Auto) 0.03 0.00-0.02 K/uL Erythrocyte Sedimentation Rate 41 0-14 mm/hr Prothrombin Time 10.0 9.0-12.0 SECONDS Prothromb Time International Ratio 1.0 0.9-1.1 Activated Partial Thromboplast Time 31.1 21.0-31.0 SECONDS Partial Thromboplastin Ratio 1.2 Bedside Lactic Acid Venous 1.46 0.90-1.70 mmol/L Test 05/07/17 18:55 Range/Units Urine Color YELLOW Urine Appearance CLEAR CLEAR Urine pH 6.5 4.5-7.5 Urine Specific [place] 1.015 1.000-1.030 Urine Protein NEG NEG Urine Glucose (UA) NEG NEG Urine Ketones NEG NEG Urine Occult Blood NEG NEG Urine Nitrite NEG NEG Urine Bilirubin NEG NEG Urine Urobilinogen NEG NEG Urine Leukocyte Esterase TRACE NEG Urine WBC (Auto) 1-5 0-5 /hpf Urine RBC (Auto) 0-4 0-4 /hpf Urine Hyaline Casts (Auto) 1-5 0-5 /lpf Urine Epithelial Cells (Auto) 5-10 0-5 /lpf Urine Bacteria (Auto) NEG NEG Urine Opiates Screen NEG NEG Urine Methadone, Qualitative NEG NEG Urine Barbiturates NEG NEG Urine Phencyclidine (PCP) Level NEG NEG Ur Amphetamine/Methamphetamine NEG NEG MDMA (Ecstasy) Screen NEG NEG Urine Benzodiazepines Screen NEG NEG Urine Cocaine Metabolite NEG NEG Urine Marijuana (THC) NEG NEG Microbiology Results 05/07/17 Blood Culture, Received Pending 05/07/17 Blood Culture, Received Pending Diagnostic Radiology R ELBOW MIN 3 VIEWS ROUTINE CLINICAL HISTORY: r/o metal foreign body (possible ivda) foreign body COMPARISON: None. DISCUSSION: The bones and joint spaces appear intact. There is no evidence of fracture, dislocation or bony disease. There is no evidence for soft tissue swelling. No evidence for radiopaque foreign body IMPRESSION: Negative study. EXTREMITY NONVASCULAR LIMITED CLINICAL HISTORY: Right upper arm infection. R/O abscess pain TECHNIQUE: Ultrasound COMPARISON STUDY: None FINDINGS: No evidence for abscess collection at the site of nodularity. There is, however evidence for superficial thrombophlebitis in this region involving the mid to distal cephalic vein. There is moderate degree of surrounding soft tissue edematous change. All remaining venous structures appear unremarkable. IMPRESSION: 1. Mild soft tissue edema and a focal superficial thrombophlebitis of the cephalic vein at the site of clinically palpable nodularity, edematous change. 2. No evidence for abscess collection or foreign body by ultrasound criteria. Impression Assessment and Plan 62 year old male w/ a PMH of COPD, HTN, Anxiety, and Gerd presented with redness and swelling of his R upper extremity Cellulitis w/ associated superficial thrombophlebitis secondary to foreign body - hx of MRSA (contact precautions) - Vancomycin IV 20mg/kg/bid and Zosyn IV 4.5 g tid - Unable to obtain wound culture; however blood cultures pending - Elevated inflammatory markers of ESR and CRP--> continue to trend - obtain venous doppler to assess for clot - hx of pain medication abuse therefore hold off on pain meds for now unless he asks for them COPD - continue home inhalers of spiriva, mometasone and albuterol HTN - blood pressure well controlled - continue losartan Anxiety - continue gabapentin and hydroxyzine GERD - continue prilosec and sulcrafate BPH - continue flomax Constipation - continue colace DVT prophylaxis - lovenox 40mg subq FULL CODE Attending addendum: I have physically seen this patient, have supervised the medical residents activities, and agree with the H&P unless as otherwise noted. Assessment and Plan: Right upper extremity cellulitis/mid to distal cephalic vein superficial thrombophlebitis-- Admit to medical surgical floor. Follow blood culture and sensitivity. Empiric treatment with vancomycin IV and Zosyn IV. Nonvascular upper extremity Doppler negative for abscess or fluid collection. Upper extremity Doppler negative for DVT. Continue other medications as noted above. Advanced Directives Existing Advance Directive: No Existing Living Will: No Existing Power of Pearl Restorer: No Resuscitation Status VTE Prophylaxis Will order VTE Prophylaxis: Yes Social Service Consult None Apply
[2017-05-07] MEDS ORDERED: VANCOMYCIN IV SCH (21:00)
[2017-05-07] MEDS ORDERED: SODIUM CHLORIDE 0.9% IV SCH (21:00)
--- NOTE | 2017-05-07 21:20 | DIAGNOSTIC IMAGING REPORT ---
R VENOUS DOPPLER UPR EXT UNIL HISTORY: Pain. Edema. Swelling and erythema of R upper extremity COMPARISON STUDY: Ultrasound same date FINDINGS: Superficial thrombophlebitis in the mid to distal cephalic vein. This is unchanged. All remaining components are unremarkable. There is no evidence for deep venous thrombosis. IMPRESSION: No evidence for deep venous thrombosis. Focal superficial thrombophlebitis mid to distal cephalic vein unchanged from the prior study. The above report was generated using voice recognition software. It may contain grammatical, syntax or spelling errors. Electronically signed by: Cuco Wilson M.D. 05/07/2017 9:18 PM Dictated Date/Time: 05/07/2017 9:17 PM
[2017-05-07] MEDS: SUCRALFATE 1 GM TAB PO SCH (21:45)
[2017-05-07] MEDS: ENOXAPARIN 40 MG/0.4 ML SYR SQ SCH (21:46)
[2017-05-07] MEDS: TAMSULOSIN HCL 0.4 MG CAP PO SCH (21:46)
[2017-05-07] MEDS: DOCUSATE SODIUM 100 MG CAP PO SCH (21:46)
[2017-05-07] MEDS ORDERED: PIPERACILL/TAZOBAC IV 4.5 GM in DEXTROSE 5% 100ML IV ONE (22:00)
[2017-05-07] MEDS ORDERED: PIPERACILL/TAZOBAC IV 4.5 GM in DEXTROSE 5% 100ML 100 ML IV SCH (22:00)
[2017-05-07] MEDS: PROPRANOLOL HCL 80 MG LA CAP PO SCH (22:13)
[2017-05-07] MEDS: ACETAMINOPHEN 325 MG TAB PO PRN (22:20)
[2017-05-07 22:27] VITALS: BP 145/81; PULSE 85; TEMP 36.9; O2SAT 94; Ht 180.3 cm; Wt 122.0 kg
[2017-05-07] MEDS: ONDANSETRON INJ 2 MG/ML 2 ML VIAL IV PRN (22:38)
[2017-05-07] MEDS: VANCOMYCIN IV 1,750 MG in SODIUM CHLORIDE 0.9% 500ML 500 ML IV SCH (23:26)
[2017-05-08] MEDS: PIPERACILL/TAZOBAC IV 4.5 GM in DEXTROSE 5% 100ML IV SCH ×3 (05:07→19:52)
[2017-05-08] MEDS: SUCRALFATE 1 GM TAB PO SCH ×4 (05:07→19:51)
[2017-05-08 07:09] VITALS: BP 115/65; PULSE 72; TEMP 36.9; O2SAT 96
[2017-05-08] MEDS: PANTOprazole SOD 40 MG TAB PO SCH (07:46)
[2017-05-08] MEDS: LOSARTAN POTASSIUM 50 MG TAB PO SCH (07:47)
[2017-05-08] MEDS: DOCUSATE SODIUM 100 MG CAP PO SCH ×3 (07:48→19:51)
[2017-05-08] MEDS: GABAPENTIN 300 MG CAP PO SCH (07:49)
[2017-05-08] MEDS: PROPRANOLOL HCL 80 MG LA CAP PO SCH ×2 (07:49→19:51)
[2017-05-08] MEDS: TIOTROPIUM BROMIDE 5 PUFF/90 MCG INH INH SCH (07:50)
[2017-05-08] MEDS: MOMETASONE FUROATE 14 PUFF/1 INHALER INH SCH (07:51)
[2017-05-08 09:16] LABS: BASO % 0.4 %; BASO ABS # 0.03 K/uL (0-0.2); EOS % 7.5 %; EOS ABS # 0.52 K/uL (0-0.5); HEMATOCRIT 40.4 % (42-52); HEMOGLOBIN 13.3 g/dL (14.0-18.0); IG# 0.04 K/uL (0.00-0.02); LYMPH % 30.3 %; LYMPH ABS # 2.09 K/uL (1.2-3.4); MEAN CELL VOLUME 85.8 fL (80-100); MEAN CORPUSCULAR HEMOGLOBIN 28.2 pg (25-34); MEAN CORPUSCULAR HGB CONC 32.9 g/dl (32-36); MONO % 13.5 %; MONO ABS # 0.93 K/uL (0.11-0.59); NEUT % 47.7 %; NEUT ABS # 3.29 K/uL (1.4-6.5); PLATELET COUNT 167 K/uL (130-400); RED CELL DISTRIBUTION WIDTH CV 13.5 % (11.5-14.5); RED CELL DISTRIBUTION WIDTH SD 42.7 fL (36.4-46.3)
[2017-05-08] MEDS: VANCOMYCIN IV 1,750 MG in SODIUM CHLORIDE 0.9% 500ML 500 ML IV SCH (10:02)
[2017-05-08] MEDS: ACETAMINOPHEN 325 MG TAB PO PRN ×2 (10:03→16:51)
[2017-05-08 10:12] LABS: CALCIUM 8.5 mg/dl (8.5-10.1); CREATININE 0.97 mg/dl (0.60-1.40); TOTAL PROTEIN 7.4 gm/dl (6.4-8.2)
--- NOTE | 2017-05-08 11:02 | Pharmacy Progress Note ---
Pharmacy Antibiotic Consult Date of Service: May 08, 2017. Pharmacy Dosing Scope Pharmacy is consulted to initiate vancomycin IV dosing therapy, order appropriate labs and adjust drug dose/frequency. Subjective The patient is a 62 year old male admitted on May 07, 2017 at 19:58. Objective Height (Feet): 5 Height (Inches): 11.00 Weight (Kilograms): 122.000 Lab Results (24hrs): Test 05/07/17 16:28 05/07/17 16:53 05/07/17 16:55 05/07/17 16:57 Sodium Level 134 mmol/L (136-145) Potassium Level 4.3 mmol/L (3.5-5.1) Chloride Level 102 mmol/L (98-107) Carbon Dioxide Level 28 mmol/L (21-32) Anion Gap 4.0 mmol/L (3-11) Blood Urea Nitrogen 14 mg/dl (7-18) Creatinine 1.12 mg/dl (0.60-1.40) Est Creatinine Clear Calc Drug Dose 92.0 ml/min Estimated GFR () 81.7 Estimated GFR (Non- 70.5 BUN/Creatinine Ratio 12.2 (10-20) Random Glucose 144 mg/dl (70-99) Calcium Level 8.4 mg/dl (8.5-10.1) Total Bilirubin 0.7 mg/dl (0.2-1) Aspartate Amino Transf (AST/SGOT) 25 U/L (15-37) Alanine Aminotransferase (ALT/SGPT) 27 U/L (12-78) Alkaline Phosphatase 116 U/L (45-117) C-Reactive Protein 8.19 mg/dl (0-0.29) Total Protein 8.0 gm/dl (6.4-8.2) Albumin 3.4 gm/dl (3.4-5.0) Globulin 4.6 gm/dl (2.5-4.0) Albumin/Globulin Ratio 0.7 (0.9-2) Chemistry Specimen Hemolysis White Blood Count 9.28 K/uL (4.8-10.8) Red Blood Count 4.77 M/uL (4.7-6.1) Hemoglobin 13.8 g/dL (14.0-18.0) Hematocrit 40.1 % (42-52) Mean Corpuscular Volume 84.1 fL (80-100) Mean Corpuscular Hemoglobin 28.9 pg (25-34) Mean Corpuscular Hemoglobin Concent 34.4 g/dl (32-36) Platelet Count 155 K/uL (130-400) Mean Platelet Volume 8.9 fL (7.4-10.4) Neutrophils (%) (Auto) 66.8 % Lymphocytes (%) (Auto) 17.8 % Monocytes (%) (Auto) 11.3 % Eosinophils (%) (Auto) 3.6 % Basophils (%) (Auto) 0.2 % Neutrophils # (Auto) 6.20 K/uL (1.4-6.5) Lymphocytes # (Auto) 1.65 K/uL (1.2-3.4) Monocytes # (Auto) 1.05 K/uL (0.11-0.59) Eosinophils # (Auto) 0.33 K/uL (0-0.5) Basophils # (Auto) 0.02 K/uL (0-0.2) RDW Standard Deviation 41.2 fL (36.4-46.3) RDW Coefficient of Variation 13.5 % (11.5-14.5) Immature Granulocyte % (Auto) 0.3 % Immature Granulocyte # (Auto) 0.03 K/uL (0.00-0.02) Erythrocyte Sedimentation Rate 41 mm/hr (0-14) Prothrombin Time 10.0 SECONDS (9.0-12.0) Prothromb Time International Ratio 1.0 (0.9-1.1) Activated Partial Thromboplast Time 31.1 SECONDS (21.0-31.0) Partial Thromboplastin Ratio 1.2 Bedside Lactic Acid Venous 1.46 mmol/L (0.90-1.70) Test 05/07/17 18:55 05/08/17 08:43 Urine Color YELLOW Urine Appearance CLEAR (CLEAR) Urine pH 6.5 (4.5-7.5) Urine Specific [place] 1.015 (1.000-1.030) Urine Protein NEG (NEG) Urine Glucose (UA) NEG (NEG) Urine Ketones NEG (NEG) Urine Occult Blood NEG (NEG) Urine Nitrite NEG (NEG) Urine Bilirubin NEG (NEG) Urine Urobilinogen NEG (NEG) Urine Leukocyte Esterase TRACE (NEG) Urine WBC (Auto) 1-5 /hpf (0-5) Urine RBC (Auto) 0-4 /hpf (0-4) Urine Hyaline Casts (Auto) 1-5 /lpf (0-5) Urine Epithelial Cells (Auto) 5-10 /lpf (0-5) Urine Bacteria (Auto) NEG (NEG) Urine Opiates Screen NEG (NEG) Urine Methadone, Qualitative NEG (NEG) Urine Barbiturates NEG (NEG) Urine Phencyclidine (PCP) Level NEG (NEG) Ur Amphetamine/Methamphetamine NEG (NEG) MDMA (Ecstasy) Screen NEG (NEG) Urine Benzodiazepines Screen NEG (NEG) Urine Cocaine Metabolite NEG (NEG) Urine Marijuana (THC) NEG (NEG) White Blood Count 6.90 K/uL (4.8-10.8) Red Blood Count 4.71 M/uL (4.7-6.1) Hemoglobin 13.3 g/dL (14.0-18.0) Hematocrit 40.4 % (42-52) Mean Corpuscular Volume 85.8 fL (80-100) Mean Corpuscular Hemoglobin 28.2 pg (25-34) Mean Corpuscular Hemoglobin Concent 32.9 g/dl (32-36) Platelet Count 167 K/uL (130-400) Mean Platelet Volume 9.0 fL (7.4-10.4) Neutrophils (%) (Auto) 47.7 % Lymphocytes (%) (Auto) 30.3 % Monocytes (%) (Auto) 13.5 % Eosinophils (%) (Auto) 7.5 % Basophils (%) (Auto) 0.4 % Neutrophils # (Auto) 3.29 K/uL (1.4-6.5) Lymphocytes # (Auto) 2.09 K/uL (1.2-3.4) Monocytes # (Auto) 0.93 K/uL (0.11-0.59) Eosinophils # (Auto) 0.52 K/uL (0-0.5) Basophils # (Auto) 0.03 K/uL (0-0.2) RDW Standard Deviation 42.7 fL (36.4-46.3) RDW Coefficient of Variation 13.5 % (11.5-14.5) Immature Granulocyte % (Auto) 0.6 % Immature Granulocyte # (Auto) 0.04 K/uL (0.00-0.02) Erythrocyte Sedimentation Rate 41 mm/hr (0-14) Sodium Level 138 mmol/L (136-145) Potassium Level 4.0 mmol/L (3.5-5.1) Chloride Level 105 mmol/L (98-107) Carbon Dioxide Level 27 mmol/L (21-32) Anion Gap 6.0 mmol/L (3-11) Blood Urea Nitrogen 11 mg/dl (7-18) Creatinine 0.97 mg/dl (0.60-1.40) Est Creatinine Clear Calc Drug Dose 106.3 ml/min Estimated GFR () 97.3 Estimated GFR (Non- 83.9 BUN/Creatinine Ratio 11.5 (10-20) Random Glucose 112 mg/dl (70-99) Calcium Level 8.5 mg/dl (8.5-10.1) Total Bilirubin 0.8 mg/dl (0.2-1) Aspartate Amino Transf (AST/SGOT) 17 U/L (15-37) Alanine Aminotransferase (ALT/SGPT) 24 U/L (12-78) Alkaline Phosphatase 101 U/L (45-117) Total Protein 7.4 gm/dl (6.4-8.2) Albumin 3.0 gm/dl (3.4-5.0) Globulin 4.4 gm/dl (2.5-4.0) Albumin/Globulin Ratio 0.7 (0.9-2) Micro Results: Gram positive cocci 1/2 BC thus far Assessment & Plan Loading dose: 1000 mg IV X 1 dose (1713) then: 1750 mg IV every 10 hours as dosed by initial consult pharmacist. Given the patent's BMI, would suggest using an adjusted body weight or lower mg/kg dose going forward. However, I expect trough level to be reasonable given the patient did not receive a full loading dose. I will place the next dose on hold pending the trough level to allow for adjustments to be made. It is noted that gram positive cocci is present in at least one blood culture. Goal trough level estimate: between 15 - 20 mcg/mL. Peak and trough or random level has been ordered for: . Pharmacy will continue to follow and will adjust dose/frequency as necessary. Thank you
[2017-05-08] MEDS ORDERED: ASPIRIN 325 MG ECTAB PO ONE (13:30)
[2017-05-08] MEDS ORDERED: PERFLUTREN LIPID MICROSPHERE (DEFINITY) IV ONE (14:16)
[2017-05-08 15:50] VITALS: BP 111/66; PULSE 73; TEMP 36.8; O2SAT 94
--- NOTE | 2017-05-08 17:11 | Progress Note ---
Subjective Date of Service: May 08, 2017. Subjective Pt evaluation today including: conversation w/ patient, physical exam, chart review, lab review, review of studies (doppler and u/s of RUE, x-rays), review of inpatient medication list Pain: right arm, but NOT in the elbow joint itself PO Intake: fine Voiding: no voiding problems patient states he somehow "got metal" in the right arm and his had to dig it out with a pair of tweezers he has prior h/o MRSA in his left arm he has b/l knee replacement but denies any pain or swelling no fever today denies any dyspnea beyond baseline amount; has known COPD Problem List Medical Problems: (1) Asthma, Unspecified Status: Chronic (2) Cellulitis Status: Acute (3) Cellulitis of left upper arm Status: Acute (4) Cellulitis of right upper arm Status: Acute (5) Contusion of multiple sites Status: Acute (6) Failure of outpatient treatment Status: Acute (7) Fall Status: Acute (8) Hypertension Nos Status: Chronic (9) Hypotension Status: Acute (10) Left knee pain Status: Acute (11) Occluded PICC line Status: Acute (12) Postoperative hematoma Status: Acute (13) Postoperative pain of left knee Status: Acute (14) Rheumatoid Arthritis Status: Chronic (15) Right knee pain Status: Acute (16) Superficial thrombophlebitis Status: Acute (17) Syncope Status: Acute Surgical Problems: (1) Carpal Tunnel Syndrome Status: Chronic Social History Problems: (1) Status post PICC central line placement Status: Acute Review of Systems Constitutional: No fever, No chills Respiratory: + dyspnea on exertion Cardiac: No chest pain Abdomen: No pain Objective Vital Signs Date Time Temp Pulse Resp B/P (MAP) Pulse Ox O2 Delivery O2 Flow Rate FiO2 05/08/17 16:00 Room Air 05/08/17 15:50 36.8 73 18 111/66 (81) 94 05/08/17 08:00 Room Air 05/08/17 07:09 36.9 72 18 115/65 (82) 96 Room Air 05/08/17 00:00 Room Air 05/07/17 22:27 36.9 85 16 145/81 94 Room Air 05/07/17 20:50 84 20 130/74 97 05/07/17 20:00 82 18 129/79 96 Room Air 05/07/17 18:35 89 18 135/80 96 Room Air Physical Exam General Appearance: no apparent distress, + obese ENT: pharynx normal Neck: no JVD Respiratory/Chest: no respiratory distress, no accessory muscle use, + wheezing (mild, b/l ) Cardiovascular: regular rate, rhythm, no gallop, + systolic murmur (1/6 ASTRID LSB ) Abdomen: normal bowel sounds, non tender, soft, no organomegaly Extremities: no pedal edema, + pertinent finding (b/l knee replacement scars; no erythema or swelling of either joint) Neurologic/Psychiatric: alert, oriented x 3 Skin: + pertinent finding (right arm, dorsal surface - erythema and warmth covering 2/3 of upper arm and extending to the antecubital region and just inferior to the AC region on forearm; erythema extends medially in the upper arm ; there is a palpable cord with tenderness in the antecubital region in the expected location of the cephalic vein; no abscess or fluid collection present; surgical scar on upper left arm) Laboratory Results Last 24 Hours Test 05/07/17 18:55 05/08/17 08:43 Urine Color YELLOW Urine Appearance CLEAR Urine pH 6.5 Urine Specific [place] 1.015 Urine Protein NEG Urine Glucose (UA) NEG Urine Ketones NEG Urine Occult Blood NEG Urine Nitrite NEG Urine Bilirubin NEG Urine Urobilinogen NEG Urine Leukocyte Esterase TRACE Urine WBC (Auto) 1-5 /hpf Urine RBC (Auto) 0-4 /hpf Urine Hyaline Casts (Auto) 1-5 /lpf Urine Epithelial Cells (Auto) 5-10 /lpf Urine Bacteria (Auto) NEG Urine Opiates Screen NEG Urine Methadone, Qualitative NEG Urine Barbiturates NEG Urine Phencyclidine (PCP) Level NEG Ur Amphetamine/Methamphetamine NEG MDMA (Ecstasy) Screen NEG Urine Benzodiazepines Screen NEG Urine Cocaine Metabolite NEG Urine Marijuana (THC) NEG White Blood Count 6.90 K/uL Red Blood Count 4.71 M/uL Hemoglobin 13.3 g/dL Hematocrit 40.4 % Mean Corpuscular Volume 85.8 fL Mean Corpuscular Hemoglobin 28.2 pg Mean Corpuscular Hemoglobin Concent 32.9 g/dl Platelet Count 167 K/uL Mean Platelet Volume 9.0 fL Neutrophils (%) (Auto) 47.7 % Lymphocytes (%) (Auto) 30.3 % Monocytes (%) (Auto) 13.5 % Eosinophils (%) (Auto) 7.5 % Basophils (%) (Auto) 0.4 % Neutrophils # (Auto) 3.29 K/uL Lymphocytes # (Auto) 2.09 K/uL Monocytes # (Auto) 0.93 K/uL Eosinophils # (Auto) 0.52 K/uL Basophils # (Auto) 0.03 K/uL RDW Standard Deviation 42.7 fL RDW Coefficient of Variation 13.5 % Immature Granulocyte % (Auto) 0.6 % Immature Granulocyte # (Auto) 0.04 K/uL Erythrocyte Sedimentation Rate 41 mm/hr Sodium Level 138 mmol/L Potassium Level 4.0 mmol/L Chloride Level 105 mmol/L Carbon Dioxide Level 27 mmol/L Anion Gap 6.0 mmol/L Blood Urea Nitrogen 11 mg/dl Creatinine 0.97 mg/dl Est Creatinine Clear Calc Drug Dose 106.3 ml/min Estimated GFR () 97.3 Estimated GFR (Non- 83.9 BUN/Creatinine Ratio 11.5 Random Glucose 112 mg/dl Calcium Level 8.5 mg/dl Total Bilirubin 0.8 mg/dl Aspartate Amino Transf (AST/SGOT) 17 U/L Alanine Aminotransferase (ALT/SGPT) 24 U/L Alkaline Phosphatase 101 U/L Total Protein 7.4 gm/dl Albumin 3.0 gm/dl Globulin 4.4 gm/dl Albumin/Globulin Ratio 0.7 Assessment and Plan 62yo male - 1. RUE cellulitis - in the presence of the cephalic vein superficial thrombophlebitis and his h/o IV drug abuse I am concerned that he recently used IV drugs leading to this infection. However his tox screen is negative. His blood cx's are growing GPC. Continue current IV antibiotics (zosyn/vanco). No surgical intervention needed at this time. 2. RUE superficial phlebitis of the cephalic vein - see above. Aspirin 325mg BID. Elevate arm. Warm packs. The phlebitis is likely "septic." 3. Gram + cocci bacteremia - likely from #1, #2. Cont current IV abx. Echo - r/o endocarditis. Recheck blood cx's x 2 in the AM to ensure sterility. 4. COPD - stable; no exacerbation. Inhalers prn. 5. DVT proph - lovenox 40mg daily. 6. GERD - carafate, etc. 7. h/o IV drug abuse - will genetic counselor him tomorrow and ask permission for HIV testing. Also consider HepB, HepC testing. 8. HTN - controlled. 9. BPH - alpha shawn. Continued [facility] stay due to: multiple IV medications needed
--- NOTE | 2017-05-08 18:10 | ECHOCARDIOGRAM REPORT ---
*NOTICE TO RECEIVING LIBERTARIAN AGENCY This information is strictly Confidential and protected under [place] law. [place] law prohibits you from making any further disclosure of this information unless further disclosure is expressly permitted by the written consent of the person to whom it pertains or is authorized by law. A general authorization for the release of medical or other information is not sufficient for this purpose. Hospital accepts no responsibility if the information is made available to any other person, INCLUDING THE PATIENT. Interpretation Summary * Name: MICHAEL MCGUIRE Study Date: 05/08/2017 01:34 PM BP: 115/65 mmHg * Patient Location: .4E\S\E408\S\1 HR: 75 * : 1955 (M/d/yyyy) Gender: Male Height: 71 in * Age: 62 yrs Ethnicity: CA Weight: 268 lb * Ordering Physician: Deandre Bell * Referring Physician: Self, Referred * Performed By: Avinash Reyes RDCS * * Reason For Study: ENDOCARDITIS * BSA: 2.4 m2 * There is no evidence of a mass or vegetation. This does not rule out endocarditis. * -- Conclusions -- * There is borderline concentric left ventricular hypertrophy. * Left ventricular systolic function is normal. * Diastolic dysfunction, Grade II, consistent with elevated left atrial pressure. * The right ventricle is mildly dilated. * The left atrium is mildly dilated. * The compared to study from 03/05/2016, there is no definite change. Procedure Details * A contrast injection of Definity was performed to improve assessment of LV function. * Contrast was injected into an intravenous site in the left arm. * One vial of Definity ultrasound contrast was diluted in normal saline to a total volume of 10 ml. A total of '2' ml of solution was administered during imaging. * Lot # [id number] of Definity utilized for procedure. * Expiration date APR 04. * The attending nurse who injected the contrast agent was LANDON SINGER RN. Left Ventricle * The left ventricle is normal in size. * There is borderline concentric left ventricular hypertrophy. * Ejection Fraction = 65-70%. * Left ventricular systolic function is normal. * Diastolic dysfunction, Grade II, consistent with elevated left atrial pressure. * The left ventricular wall motion is normal. Right Ventricle * The right ventricle is mildly dilated. * The right ventricular systolic function is normal as assessed by tricuspid annular plane systolic excursion (TAPSE) (normal >1.5 cm). Atria * The left atrium is mildly dilated. * Right atrial size is normal. Mitral Valve * The mitral valve leaflets appear thickened, but open well. * Significant mitral regurgitation is absent. Tricuspid Valve * The tricuspid valve is not well visualized, but is grossly normal. * There is trace tricuspid regurgitation. Aortic Valve * The aortic valve is normal in structure and function. * The aortic valve is trileaflet. * No hemodynamically significant valvular aortic stenosis. * There is no significant aortic regurgitation. Pulmonic Valve * The pulmonic valve is not well visualized. Great Vessels * The aortic root is normal size. Pericardium/Pleural * There is no pericardial effusion. MMode 2D Measurements and Calculations IVSd 1.2 cm IVSs 2.1 cm LVIDd 5.1 cm LVIDs 3.2 cm LVPWd 1.4 cm LVPWs 2.2 cm IVS/LVPW 0.91 FS 37.1 % EDV(Teich) 122.5 ml ESV(Teich) 40.7 ml EF(Teich) 66.8 % EDV(cubed) 130.8 ml ESV(cubed) 32.5 ml EF(cubed) 75.2 % % IVS thick 65.3 % % LVPW thick 58.5 % LV mass(C)d 270.0 grams LV mass(C)dI 113.1 grams/m\S\2 LV mass(C)s 313.1 grams LV mass(C)sI 131.1 grams/m\S\2 SV(Teich) 81.8 ml SI(Teich) 34.2 ml/m\S\2 SV(cubed) 98.3 ml SI(cubed) 41.2 ml/m\S\2 Ao root diam 3.6 cm Ao root area 10.1 cm\S\2 LA dimension 4.1 cm LA/Ao 1.1 LVAd ap4 45.3 cm\S\2 LVLd ap4 9.8 cm EDV(MOD-sp4) 168.3 ml EDV(sp4-el) 177.7 ml LVAs ap4 22.7 cm\S\2 LVLs ap4 7.8 cm ESV(MOD-sp4) 53.0 ml ESV(sp4-el) 56.2 ml EF(MOD-sp4) 68.5 % EF(sp4-el) 68.4 % LVAd ap2 40.5 cm\S\2 LVLd ap2 9.4 cm EDV(MOD-sp2) 145.1 ml EDV(sp2-el) 147.6 ml LVAs ap2 21.8 cm\S\2 LVLs ap2 8.3 cm ESV(MOD-sp2) 46.7 ml ESV(sp2-el) 48.6 ml EF(MOD-sp2) 67.8 % EF(sp2-el) 67.1 % LVLd %diff -3.98 % EDV(MOD-bp) 162.3 ml LVLs %diff 6.0 % ESV(MOD-bp) 48.8 ml EF(MOD-bp) 69.9 % SV(MOD-sp4) 115.4 ml SI(MOD-sp4) 48.3 ml/m\S\2 SV(MOD-sp2) 98.3 ml SI(MOD-sp2) 41.2 ml/m\S\2 SV(MOD-bp) 113.5 ml SI(MOD-bp) 47.5 ml/m\S\2 SV(sp4-el) 121.4 ml SI(sp4-el) 50.8 ml/m\S\2 SV(sp2-el) 99.1 ml SI(sp2-el) 41.5 ml/m\S\2 Doppler Measurements and Calculations MV E max katya 110.6 cm/sec MV A max katya 64.9 cm/sec MV E/A 1.7 MV dec time 0.21 sec Ao V2 max 182.3 cm/sec Ao max PG 13.3 mmHg Ao max PG (full) 5.6 mmHg LV V1 max PG 7.7 mmHg LV V1 max 138.7 cm/sec
[2017-05-08] MEDS ORDERED: VANCOMYCIN TROUGH ONE (19:30)
[2017-05-08] MEDS: ASPIRIN 325 MG ECTAB PO SCH (19:51)
[2017-05-08] MEDS: TAMSULOSIN HCL 0.4 MG CAP PO SCH (19:51)
[2017-05-08] MEDS: ENOXAPARIN 40 MG/0.4 ML SYR SQ SCH (19:52)
[2017-05-08] MEDS ORDERED: VANCOMYCIN IV 1,750 MG in SODIUM CHLORIDE 0.9% 500ML 500 ML IV STA (21:29)
[2017-05-08 23:42] VITALS: BP 94/61; PULSE 73; TEMP 36.6; O2SAT 95
[2017-05-09] MEDS: PIPERACILL/TAZOBAC IV 4.5 GM in DEXTROSE 5% 100ML IV SCH ×3 (04:15→20:05)
[2017-05-09] MEDS: SUCRALFATE 1 GM TAB PO SCH ×4 (06:29→21:46)
[2017-05-09] MEDS: VANCOMYCIN IV 1,750 MG in SODIUM CHLORIDE 0.9% 500ML 500 ML IV SCH ×2 (06:29→17:12)
[2017-05-09 07:33] LABS: CALCIUM 8.4 mg/dl (8.5-10.1); CREATININE 0.95 mg/dl (0.60-1.40); POTASSIUM 4.1 mmol/L (3.5-5.1)
[2017-05-09 07:56] VITALS: BP 137/87; PULSE 73; TEMP 36.5; O2SAT 98
[2017-05-09 08:00] VITALS: O2SAT 98
[2017-05-09] MEDS: MOMETASONE FUROATE 14 PUFF/1 INHALER INH SCH (08:08)
[2017-05-09] MEDS: TIOTROPIUM BROMIDE 5 PUFF/90 MCG INH INH SCH (08:08)
[2017-05-09] MEDS: DOCUSATE SODIUM 100 MG CAP PO SCH ×3 (08:09→20:06)
[2017-05-09] MEDS: GABAPENTIN 300 MG CAP PO SCH (08:09)
[2017-05-09] MEDS: PANTOprazole SOD 40 MG TAB PO SCH (08:09)
[2017-05-09] MEDS: LOSARTAN POTASSIUM 50 MG TAB PO SCH (08:09)
[2017-05-09] MEDS: ASPIRIN 325 MG ECTAB PO SCH ×2 (08:10→20:06)
[2017-05-09] MEDS: PROPRANOLOL HCL 80 MG LA CAP PO SCH ×2 (08:10→20:07)
[2017-05-09 09:21] VITALS: O2SAT 98
--- NOTE | 2017-05-09 09:30 | Pharmacy Progress Note ---
Pharmacy Abx Dose Short Note Date of Service May 09, 2017. Assessment & Plan Assessment 62 year old male receiving vancomycin/zosyn for treatment of ssti/cellulitis Day # 3 of antimicrobial therapy. 1/2 blood cultures positive for beta hemolytic strep- repeat pending Plan Vancomycin * Trough level of 15.3 mcg/mL is therapeutic drawn prior to third dose, patient at risk for accumulation * Will continue dose of 1750 mg q10 hours for now but will recheck dose prior to 0200 dose (will put on hold until results) * Goal trough level for 15-20 mcg/mL * Trough ordered for 05/10 @0130 Pharmacy will continue to follow and will adjust dose/frequency as necessary. Thank you.
[2017-05-09] MEDS: ACETAMINOPHEN 325 MG TAB PO PRN (12:48)
[2017-05-09 14:32] VITALS: BP 133/80; PULSE 69; TEMP 36.7; O2SAT 95
[2017-05-09 16:00] VITALS: O2SAT 95
--- NOTE | 2017-05-09 16:49 | DIAGNOSTIC IMAGING REPORT ---
R EXTREMITY NONVASCULAR LIMITED CLINICAL HISTORY: 62 years-old Male presenting with assess for developing abscess of right arm. TECHNIQUE: Real-time grayscale Doppler ultrasound imaging of the right upper arm was performed for a focused evaluation at the site of clinical concern. Color Doppler ultrasound imaging was also performed. COMPARISON: None. FINDINGS: At the site of clinical concern in the right upper arm, an expanded and occluded cephalic vein thrombus is noted. Surrounding skin thickening and subcutaneous edema. No other focal abnormality. No fluid collection. IMPRESSION: 1. At the site of clinical concern, redemonstration of the known cephalic vein thrombosis with surrounding subcutaneous edema. No abscess. Electronically signed by: George Shane M.D. 05/09/2017 4:48 PM Dictated Date/Time: 05/09/2017 4:47 PM
[2017-05-09] MEDS: KETOROLAC TROMETHAMINE 30 MG/ML VIAL IV PRN ×2 (17:12→23:39)
[2017-05-09] MEDS: HYDROCODONE/ACETAMIN 5/325MG TAB PO PRN (20:19)
--- NOTE | 2017-05-09 20:46 | Progress Note ---
Subjective Date of Service: May 09, 2017. Subjective Pt evaluation today including: conversation w/ patient, conversation w/ family ( at bedside), physical exam, chart review, lab review, review of studies (u /s of RUE), conversation w/ it sales consultant (orthopedics), review of inpatient medication list Pain: right arm - a little worse today PO Intake: eating well Voiding: no voiding problems patient states that the overall redness of right arm is improved but the area around the thrombophlebitis is much worse today the palpable cord, he reports, is much longer and more tender he is trying to elevate the arm and is using heat packs no elbow or shoulder pain on right Problem List Medical Problems: (1) Asthma, Unspecified Status: Chronic (2) Cellulitis Status: Acute (3) Cellulitis of left upper arm Status: Acute (4) Cellulitis of right upper arm Status: Acute (5) Contusion of multiple sites Status: Acute (6) Failure of outpatient treatment Status: Acute (7) Fall Status: Acute (8) Hypertension Nos Status: Chronic (9) Hypotension Status: Acute (10) Left knee pain Status: Acute (11) Occluded PICC line Status: Acute (12) Postoperative hematoma Status: Acute (13) Postoperative pain of left knee Status: Acute (14) Rheumatoid Arthritis Status: Chronic (15) Right knee pain Status: Acute (16) Superficial thrombophlebitis Status: Acute (17) Syncope Status: Acute Surgical Problems: (1) Carpal Tunnel Syndrome Status: Chronic Social History Problems: (1) Status post PICC central line placement Status: Acute Review of Systems Constitutional: No fever, No chills Respiratory: No shortness of breath Cardiac: No chest pain Abdomen: No pain Objective Vital Signs Date Time Temp Pulse Resp B/P (MAP) Pulse Ox O2 Delivery O2 Flow Rate FiO2 05/09/17 16:00 95 Room Air 05/09/17 14:32 36.7 69 18 133/80 (97) 95 05/09/17 09:21 98 Room Air 05/09/17 08:00 98 Room Air 05/09/17 07:56 36.5 73 14 137/87 (104) 98 Room Air 05/09/17 00:00 Room Air 05/08/17 23:42 36.6 73 20 94/61 (72) 95 Room Air Physical Exam General Appearance: no apparent distress, + obese ENT: pharynx normal Neck: no JVD Respiratory/Chest: no respiratory distress, no accessory muscle use, + wheezing Cardiovascular: regular rate, rhythm, no gallop, no murmur Abdomen: normal bowel sounds, non tender, soft, no organomegaly Extremities: no pedal edema, + pertinent finding (RUE - the cephalic vein palpable cord/thrombophlebitis is worse today with the cord now tracking more proximally up the arm from the original site in the antecubital fossa region. The cord is now about 3 inches in length. Surrounding the cord on both sides is considerable swelling with tenderness - ?developing abscess?) Neurologic/Psychiatric: alert, oriented x 3 Skin: + pertinent finding (cellulitis of right anterior arm improved but see above re: cephalic vein region) Comments: musculo - I am able to passively flex the right elbow without any pain; no obvious joint fluid right elbow Laboratory Results Last 24 Hours Test 05/09/17 06:38 Sodium Level 138 mmol/L Potassium Level 4.1 mmol/L Chloride Level 105 mmol/L Carbon Dioxide Level 27 mmol/L Anion Gap 6.0 mmol/L Blood Urea Nitrogen 10 mg/dl Creatinine 0.95 mg/dl Est Creatinine Clear Calc Drug Dose 108.5 ml/min Estimated GFR () 99.7 Estimated GFR (Non- 86.1 BUN/Creatinine Ratio 10.5 Random Glucose 159 mg/dl Calcium Level 8.4 mg/dl Assessment and Plan 62yo male - 1. RUE cellulitis - cellulitis part of his issue is better but #2 is worse and I was concerned about abscess formation. STAT u/s of RUE obtained - considerable edema present adjacent to the cephalic vein superficial thrombophlebitis but no defined abscess. The blood cx's grew group B strep and repeat blood cx's were obtained today to exclude ongoing bacteremia. Cont same abx for now; may be able to narrow them in the future depending on # 2. 2. RUE septic superficial thrombophlebitis of the cephalic vein - worse today/ has progressed based on my exam as well as by way of u/s. There are no clean cut guidelines re: anticoagulation in the setting of worsening cephalic vein superficial thrombophlebitis. No anticoagulation despite the progression. Cont Aspirin 325mg BID. Elevate arm. Warm packs. I suspect IV drug use caused this issue. I have asked orthopedics to follow this patient in the event he develops an abscess. 3. group B strep bacteremia - likely from #1, #2. Cont current IV abx. Echo w /o obvious endocarditis. Recheck blood cx's x 2 today. 4. COPD - stable; no exacerbation. Inhalers prn. 5. DVT proph - lovenox 40mg daily. 6. GERD - carafate, etc. 7. h/o IV drug abuse - will retirement plan counselor him tomorrow and ask permission for HIV testing. Also consider HepB, HepC testing. 8. HTN - controlled. 9. BPH - alpha shawn. 10. pain control - toradol q6h prn, norco 5/325 q6h prn. family updated Continued [facility] stay due to: multiple IV medications needed
[2017-05-09] MEDS: TAMSULOSIN HCL 0.4 MG CAP PO SCH (21:46)
[2017-05-09] MEDS: ENOXAPARIN 40 MG/0.4 ML SYR SQ SCH (21:47)
[2017-05-10 00:15] VITALS: BP 153/89; PULSE 68; TEMP 36.8; O2SAT 94
[2017-05-10] MEDS ORDERED: VANCOMYCIN TROUGH ONE (01:30)
[2017-05-10 02:05] LABS: CREATININE 1.1 mg/dl (0.60-1.40)
[2017-05-10] MEDS: PIPERACILL/TAZOBAC IV 4.5 GM in DEXTROSE 5% 100ML IV SCH ×2 (04:26→12:06)
[2017-05-10] MEDS: VANCOMYCIN IV 1,750 MG in SODIUM CHLORIDE 0.9% 500ML 500 ML IV SCH ×2 (05:39→18:02)
[2017-05-10] MEDS: SUCRALFATE 1 GM TAB PO SCH ×4 (05:40→20:46)
[2017-05-10] MEDS: KETOROLAC TROMETHAMINE 30 MG/ML VIAL IV PRN ×3 (07:41→20:56)
[2017-05-10] MEDS: DOCUSATE SODIUM 100 MG CAP PO SCH ×3 (07:41→20:00)
[2017-05-10 07:43] VITALS: BP 163/99; PULSE 71; TEMP 36.6; O2SAT 95
[2017-05-10] MEDS: TIOTROPIUM BROMIDE 5 PUFF/90 MCG INH INH SCH (07:43)
[2017-05-10] MEDS: MOMETASONE FUROATE 14 PUFF/1 INHALER INH SCH (07:44)
[2017-05-10] MEDS: GABAPENTIN 300 MG CAP PO SCH (07:44)
[2017-05-10] MEDS: ASPIRIN 325 MG ECTAB PO SCH ×2 (07:44→20:47)
[2017-05-10] MEDS: LOSARTAN POTASSIUM 50 MG TAB PO SCH (07:44)
[2017-05-10] MEDS: PANTOprazole SOD 40 MG TAB PO SCH (07:45)
[2017-05-10] MEDS: PROPRANOLOL HCL 80 MG LA CAP PO SCH ×2 (07:45→20:48)
--- NOTE | 2017-05-10 08:06 | Clinical Documentation Query ---
MARIE Berg : CLINICAL DOCUMENTATION QUERY Patient is a 62 year old male admitted for evaluation and treatment of RUE cellulitis and septic superficial thrombophlebitis. Please document the POA status of this important clinical diagnosis as this impacts accurate DRG assignment. Thank you. In your clinical opinion is this patient being managed for: ( x ) group B Strep Bacteremia, POA ( ) group B Strep Bacteremia, not POA ( ) Not Agree ( ) Other explanation of clinical findings (Please Explain) ( ) Unable to determine (Please Define) ( ) Need to Discuss Please clarify and document your clinical opinion in the progress notes and discharge summary. Terms such as "probable", "suspected", "likely", "questionable", "possible", or "still to be ruled out" are acceptable. IF IN AGREEMENT, YOU MUST DOCUMENT ABOVE DIAGNOSTIC STATEMENT IN DAILY PROGRESS NOTES AND DISCHARGE SUMMARY. This document is not part of the patient's record. Thank You, J Carlos Lopez, RN [phone]
[2017-05-10] MEDS ORDERED: MICONAZOLE NITRATE POWDER 43 GM ONE (11:07)
[2017-05-10] MEDS: HYDROCODONE/ACETAMIN 5/325MG TAB PO PRN ×2 (11:09→18:02)
--- NOTE | 2017-05-10 12:23 | Pharmacy Progress Note ---
Pharmacy Abx Dose Short Note Date of Service May 10, 2017. Assessment & Plan Assessment 62 year old male receiving vancomycin and Zosyn for treatment of RUE cellulitis w/ group B strep bacteremia (1 of 2 blood cultures) Day # 4 of antimicrobial therapy. SPEC #: [id number] KEZIA: 05/07/17 STATUS: RES REQ #: [id number] RECD: 05/07/17 [facility] DR: Carlos Vasquez PA- C SOURCE: BLOOD ENTR: 05/07/[address] [facility] [address]: Doc Morejon M.D. SPDESC: Phill Fairchild MD ORDERED: BLOOD CULTURE Procedure Result Verified Site BLD CULT Preliminary 05/10/17-0731 Organism 1 GROUP B BETA STREP SENS SENSITIVITY TO FOLLOW Phoned Positive Blood Culture Gram Stain Report to CARON GLASS on 05/08/17 At 0825 By KAVITHA. Results were verbalized back to KAVITHA. 1. GROUP B BETA STREP Target Route Dose RX AB Cost M.I.C. IQ ------ ----- ------ -- ------ -------- - ------ AMPICILLIN S 0.12 CEFOTAXIME S <=0.25 CEFTRIAXONE S <=0.25 CEFEPIME S <=0.25 CHLORAMPHENICOL S 2 VANCOMYCIN S 1 PENICILLIN S 0.06 ERYTHROMYCIN R >0.5 AZITHROMYCIN R >2 Plan Vancomycin * Trough level of 25 mcg/mL is supratherapeutic * This was evaluated last night and dose changed to 1750 mg IV q12h by overnight pharmacist * Goal trough level for bacteremia : 15 to 20 mcg/mL * Will order repeat trough level if vanc to continue Antibiotics were discussed at multidisciplinary rounds this AM and sounds like abscess has been ruled out so Dr. Bell plans to possibly d/c vanc and switch Zosyn to Rocephin later today. Pharmacy will continue to follow and will adjust dose/frequency as necessary. Thank you.
[2017-05-10 15:02] VITALS: BP 155/91; PULSE 68; TEMP 36.8; O2SAT 96
[2017-05-10] MEDS: TAMSULOSIN HCL 0.4 MG CAP PO SCH (20:47)
--- NOTE | 2017-05-10 20:54 | Orthopedic Consultation ---
Orthopedic Consultation Date of Consultation: May 10, 2017. Attending Physician: Deandre Bell MD Reason for Consultation: RUE cellulitis History of Present Illness Patient is a 62 year old male who presents with 1 week history of worsening RUE pain and swelling. Has significant history of IVDA with MRSA infection LUE. Denies current IVDA abuse, reports obtaining metal foreign body to RUE antecubital fossa while working on his trailer prior to the onset of symptoms. Denies trauma, numbness to RUE, fevers and chills. He states his symptoms have significantly improved since his admission. Past Medical/Surgical History Medical Problems: (1) Asthma, Unspecified Status: Chronic (2) Cellulitis Status: Acute (3) Cellulitis of left upper arm Status: Acute (4) Cellulitis of right upper arm Status: Acute (5) Contusion of multiple sites Status: Acute (6) Failure of outpatient treatment Status: Acute (7) Fall Status: Acute (8) Hypertension Nos Status: Chronic (9) Hypotension Status: Acute (10) Left knee pain Status: Acute (11) Occluded PICC line Status: Acute (12) Postoperative hematoma Status: Acute (13) Postoperative pain of left knee Status: Acute (14) Rheumatoid Arthritis Status: Chronic (15) Right knee pain Status: Acute (16) Superficial thrombophlebitis Status: Acute (17) Syncope Status: Acute Surgical Problems: (1) Carpal Tunnel Syndrome Status: Chronic Social History Problems: (1) Status post PICC central line placement Status: Acute Family History COPD (chronic obstructive pulmonary disease) Hypertension Myocardial infarction Stroke Social History Smoking Status: Former Smoker Smokeless Tobacco Use: No Alcohol Use: none Drug Use: none Marital Status: Housing Status: lives with family Occupation Status: retired Allergies Coded Allergies: Acesulfame Potassium (Unverified Allergy, Severe, SEVERE RASH & VOMIT, ) Buprenorphine/Naloxone (Unverified Allergy, Severe, SEVERE RASH & VOMIT, ) Sulfa Antibiotics (Verified Allergy, Unknown, RASH / ITCHINESS, 05/07/17) Home Medications Scheduled Acetaminophen (Tylenol Extra Strength), 1,500 MG PO TID Cholecalciferol (Vitamin D3), 2,000 INTER.UNIT PO QAM Docusate Sodium (Docusate Sodium), 100 MG PO TID Gabapentin (Neurontin), 600 MG PO QAM Losartan Potassium (Cozaar), 100 MG PO QAM Mometasone Furoate (Inhalation (Asmanex Twisthaler 120 Me), 1 PUFF INH DAILY Omeprazole (Prilosec), 40 MG PO QAM Propranolol HCl Sustained-Rele (Inderal Xl), 80 MG PO BID Sildenafil Citrate (Viagra), 100 MG PO PRN Sucralfate (Carafate), 1 GM PO ACHS Tamsulosin Hcl (Flomax), 0.4 MG PO QPM Tiotropium [place] (Spiriva Handihaler), 1 CAP INH DAILY Scheduled PRN Albuterol Sulfate (Proventil Hfa), 2 PUFFS INH QID PRN for Shortness of Breath Hydroxyzine HCl (Hydroxyzine HCl), 10 MG PO BID PRN for Anxiety Current Inpatient Medications Current Inpatient Medications Medications (Trade) Dose Ordered Sig/Tash Route Start Time Stop Time Status Last Admin Dose Admin Enoxaparin Sodium (Lovenox Inj) 40 mg Q24H SQ 05/07/17 22:00 06/06/17 21:59 05/09/17 21:47 40 MG Acetaminophen (Tylenol Tab) 650 mg Q4H PRN PO 05/07/17 20:00 06/06/17 19:59 05/09/17 12:48 650 MG Al Hydrox/Mg Hydrox/Simethicone (Maalox Max Susp) 15 ml Q4H PRN PO 05/07/17 20:00 06/06/17 19:59 Magnesium Hydroxide (Milk Of Magnesia Susp) 30 ml Q6H PRN PO 05/07/17 20:00 06/06/17 19:59 Polyethylene (Miralax Powder Packet) 17 gm DAILY PRN PO 05/07/17 20:00 06/06/17 19:59 Ondansetron HCl (Zofran Inj) 4 mg Q6H PRN IV 05/07/17 20:00 06/06/17 19:59 05/07/17 22:38 4 MG Miscellaneous Information (Consult) 1 ea UD PRN N/A 05/07/17 20:00 06/06/17 19:59 Miscellaneous Information (Consult) 1 ea UD PRN N/A 05/07/17 20:00 06/06/17 19:59 Albuterol (Ventolin Hfa Inhaler) 2 puffs QID PRN INH 05/07/17 20:00 06/06/17 19:59 Docusate Sodium (coLACE CAP) 100 mg TID PO 05/07/17 21:00 06/06/17 20:59 05/09/17 20:06 100 MG Gabapentin (Neurontin Cap) 600 mg QAM PO 05/08/17 08:00 06/07/17 08:59 05/10/17 07:44 600 MG Hydroxyzine HCl (Vistaril Tab) 10 mg BID PRN PO 05/07/17 20:00 06/06/17 19:59 05/08/17 07:47 10 MG Losartan Potassium (coZAAR TAB) 100 mg QAM PO 05/08/17 08:00 06/07/17 08:59 05/10/17 07:44 100 MG Mometasone Furoate (Asmanex 220MCG Inh) 1 puff DAILY INH 05/08/17 08:00 06/07/17 08:59 05/10/17 07:44 1 PUFF Sucralfate (Carafate Tab) 1 gm ACHS PO 05/07/17 21:00 06/06/17 20:59 05/10/17 16:15 1 GM Tamsulosin HCl (Flomax Cap) 0.4 mg QPM PO 05/07/17 21:00 06/06/17 20:59 05/09/17 21:46 0.4 MG Tiotropium [place] (Spiriva Handihaler Inhaler) 1 puff DAILY INH 05/08/17 08:00 06/07/17 08:59 05/10/17 07:43 1 PUFF Pantoprazole Sodium (Protonix Tab) 40 mg QAM PO 05/08/17 08:00 06/07/17 07:59 05/10/17 07:45 40 MG Propranolol HCl (Inderal LA Cap) 80 mg BID PO 05/07/17 21:00 06/06/17 20:59 05/10/17 07:45 80 MG Aspirin (Ecotrin Tab) 325 mg BID PO 05/08/17 20:00 06/07/17 19:59 05/10/17 07:44 325 MG Ketorolac Tromethamine (Toradol Inj) 30 mg Q6H PRN IV 05/09/17 17:15 05/14/17 17:14 05/10/17 13:58 30 MG Acetaminophen/ Hydrocodone Bitart (Gonzales 5/325 Tab) 1 tab Q6H PRN PO 05/09/17 17:15 05/23/17 17:14 05/10/17 18:02 1 TAB Vancomycin HCl 1750 mg/Sodium Chloride 535 ml @ 200 mls/hr Q12H IV 05/10/17 06:00 05/18/17 05:59 05/10/17 18:02 200 MLS/HR Ketoconazole (Nizoral 2% Crm) 1 appln BID EXT 05/10/17 20:30 05/20/17 20:29 UNV Ceftriaxone Sodium 2 gm/ Dextrose 50 ml @ 100 mls/hr Q24H IV 05/10/17 20:30 05/20/17 20:29 UNV Review of Systems ROS negative with the exception of those mentioned in the HPI above. Physical Exam Date Time Temp Pulse Resp B/P (MAP) Pulse Ox O2 Delivery O2 Flow Rate FiO2 05/10/17 16:25 Room Air 05/10/17 15:02 36.8 68 20 155/91 (112) 96 Room Air 05/10/17 08:20 Room Air 05/10/17 07:43 36.6 71 22 163/99 (120) 95 Room Air 05/10/17 00:30 Room Air 05/10/17 00:15 36.8 68 20 153/89 (110) 94 Room Air NAD, AOx3 RUE: NVSI, +R/U/M/AIN/PIN, SILT grossly, +2 radial pulse, 5/5 patient accounting representative strength, full painless ROM shoulder, elbow and wrist, mild erythema overlying antecubital fossa, +scar overlying anticubital fossa, +enduration tracks overlying cephalic vein. Neg drainage, neg TTP. Laboratory Results Last 24 Hours Test 05/10/17 01:34 Creatinine 1.10 mg/dl Est Creatinine Clear Calc Drug Dose 93.7 ml/min Estimated GFR () 83.5 Estimated GFR (Non- 72.1 Vancomycin Level Trough 25.0 mcg/ml Assessment & Plan RUE superficial thrombophlebitis of the cephalic vein, negative for abscess on US, likely secondary to IVDA given presentation and past medical history. No orthopedic intervention at this time, continue abx per medical team. Continue with Ice/warm compress, elevation, WBAT RUE. Thank you for the consultation. R ELBOW MIN 3 VIEWS ROUTINE CLINICAL HISTORY: r/o metal foreign body (possible ivda) foreign body COMPARISON: None. DISCUSSION: The bones and joint spaces appear intact. There is no evidence of fracture, dislocation or bony disease. There is no evidence for soft tissue swelling. No evidence for radiopaque foreign body IMPRESSION: Negative study. EXTREMITY NONVASCULAR LIMITED CLINICAL HISTORY: Right upper arm infection. R/O abscess pain TECHNIQUE: Ultrasound COMPARISON STUDY: None FINDINGS: No evidence for abscess collection at the site of nodularity. There is, however evidence for superficial thrombophlebitis in this region involving the mid to distal cephalic vein. There is moderate degree of surrounding soft tissue edematous change. All remaining venous structures appear unremarkable. IMPRESSION: 1. Mild soft tissue edema and a focal superficial thrombophlebitis of the cephalic vein at the site of clinically palpable nodularity, edematous change. 2. No evidence for abscess collection or foreign body by ultrasound criteria.
[2017-05-10] MEDS ORDERED: CEFTRIAXONE SOD INJ 2 GM in DEXTROSE 5% ADD-VANTAGE 50ML 50 ML IV SCH (21:00)
[2017-05-10] MEDS: ENOXAPARIN 40 MG/0.4 ML SYR SQ SCH (21:19)
[2017-05-10] MEDS: KETOCONAZOLE 2% CR 15 GM TUBE EXT SCH (21:19)
--- NOTE | 2017-05-10 22:38 | Progress Note ---
Subjective Date of Service: May 10, 2017. Subjective Pt evaluation today including: conversation w/ patient, physical exam, chart review, lab review Pain: right arm - but improved PO Intake: normal Voiding: no voiding problems "I feel a lot better" swelling/redness/tenderness all improved of the RUE asking when he will go home no fever mild diarrhea today, but had been taking multiple doses of colace Problem List Medical Problems: (1) Asthma, Unspecified Status: Chronic (2) Cellulitis Status: Acute (3) Cellulitis of left upper arm Status: Acute (4) Cellulitis of right upper arm Status: Acute (5) Contusion of multiple sites Status: Acute (6) Failure of outpatient treatment Status: Acute (7) Fall Status: Acute (8) Hypertension Nos Status: Chronic (9) Hypotension Status: Acute (10) Left knee pain Status: Acute (11) Occluded PICC line Status: Acute (12) Postoperative hematoma Status: Acute (13) Postoperative pain of left knee Status: Acute (14) Rheumatoid Arthritis Status: Chronic (15) Right knee pain Status: Acute (16) Superficial thrombophlebitis Status: Acute (17) Syncope Status: Acute Surgical Problems: (1) Carpal Tunnel Syndrome Status: Chronic Social History Problems: (1) Status post PICC central line placement Status: Acute Review of Systems Constitutional: No fever, No chills Respiratory: + dyspnea on exertion (baseline) Cardiac: No chest pain Abdomen: No pain, No nausea, No vomiting Objective Vital Signs Date Time Temp Pulse Resp B/P (MAP) Pulse Ox O2 Delivery O2 Flow Rate FiO2 05/10/17 20:00 Room Air 05/10/17 16:25 Room Air 05/10/17 15:02 36.8 68 20 155/91 (112) 96 Room Air 05/10/17 08:20 Room Air 05/10/17 07:43 36.6 71 22 163/99 (120) 95 Room Air 05/10/17 00:30 Room Air 05/10/17 00:15 36.8 68 20 153/89 (110) 94 Room Air Physical Exam General Appearance: no apparent distress, + obese ENT: pharynx normal Neck: no JVD Respiratory/Chest: lungs clear, no respiratory distress, no accessory muscle use Cardiovascular: regular rate, rhythm, no gallop, no murmur Abdomen: normal bowel sounds, non tender, soft, no organomegaly Extremities: no pedal edema, + pertinent finding (right elbow joint without synovitis or pain ) Neurologic/Psychiatric: alert, oriented x 3 Skin: + pertinent finding (cephalic vein superficial thrombophlebitis, right antecubital area extending proximally up the biceps - improved today with less swelling/redness/tenderness; the palpable cord along the length of the vein is definitely less swollen today; the significant edema that was to the left and right of the cephalic vein is also much better today; the erythema/cellulitis of the upper arm is much better with the leading edges receding from the previously placed demarkation lines) Comments: tinea cruris, left groin Laboratory Results Last 24 Hours Test 05/10/17 01:34 Creatinine 1.10 mg/dl Est Creatinine Clear Calc Drug Dose 93.7 ml/min Estimated GFR () 83.5 Estimated GFR (Non- 72.1 Vancomycin Level Trough 25.0 mcg/ml Assessment and Plan 62yo male - 1. RUE cellulitis - improved. D/c zosyn, change to rocephin as this will cover group B strep well. Although MRSA swab is negative, he has prior h/o such , and will leave the [facility] for now. 2. RUE septic superficial thrombophlebitis of the cephalic vein - improved today. Cont antibiotics - see #1 above. Cont Aspirin 325mg BID. Elevate arm. Warm packs. I suspect IV drug use caused this issue. Appreciate orthopedics consult; no surgical intervention needed at this time. Also spoke with vascular and anticoagulation is not needed. 3. group B strep bacteremia - POA - likely from #1, #2. Echo w/o obvious endocarditis. Recheck blood cx's x 2 thus far negative. Change zosyn to rocephin. At discharge would Rx with augmentin. Consider ID consultation for their opinion. 4. COPD - stable; no exacerbation. Inhalers prn. 5. DVT proph - lovenox 40mg daily. 6. GERD - carafate, etc. 7. h/o IV drug abuse - consider HepB, HepC, HIV testing. 8. HTN - controlled. 9. BPH - alpha shawn. 10. pain control - toradol q6h prn, norco 5/325 q6h prn. 11. tinea cruris - left groin - ketoconazole cream BID. likely d/c next 1-2 days Continued [facility] stay due to: multiple IV medications needed Discharge planning: home
[2017-05-10 23:41] VITALS: BP 144/83; PULSE 72; TEMP 36.4; O2SAT 95
[2017-05-11 06:00] LABS: BASO % 0.6 %; BASO ABS # 0.03 K/uL (0-0.2); EOS % 9.7 %; EOS ABS # 0.48 K/uL (0-0.5); HEMATOCRIT 36.7 % (42-52); HEMOGLOBIN 12.2 g/dL (14.0-18.0); IG# 0.02 K/uL (0.00-0.02); LYMPH ABS # 1.34 K/uL (1.2-3.4); MEAN CELL VOLUME 84.2 fL (80-100); MEAN CORPUSCULAR HGB CONC 33.2 g/dl (32-36); MEAN PLATELET VOLUME 8.5 fL (7.4-10.4); MONO % 10.5 %; MONO ABS # 0.52 K/uL (0.11-0.59); NEUT % 51.8 %; NEUT ABS # 2.57 K/uL (1.4-6.5); PLATELET COUNT 157 K/uL (130-400); RED CELL DISTRIBUTION WIDTH CV 13.1 % (11.5-14.5); RED CELL DISTRIBUTION WIDTH SD 40.1 fL (36.4-46.3); WHITE BLOOD COUNT 4.96 K/uL (4.8-10.8)
[2017-05-11] MEDS: SUCRALFATE 1 GM TAB PO SCH ×2 (06:05→10:22)
[2017-05-11] MEDS: VANCOMYCIN IV 1,750 MG in SODIUM CHLORIDE 0.9% 500ML 500 ML IV SCH (06:05)
[2017-05-11 06:28] LABS: CALCIUM 8.7 mg/dl (8.5-10.1); CREATININE 1.4 mg/dl (0.60-1.40); POTASSIUM 3.9 mmol/L (3.5-5.1)
[2017-05-11] MEDS: PROPRANOLOL HCL 80 MG LA CAP PO SCH (07:36)
[2017-05-11] MEDS: ASPIRIN 325 MG ECTAB PO SCH (07:36)
[2017-05-11] MEDS: GABAPENTIN 300 MG CAP PO SCH (07:36)
[2017-05-11] MEDS: PANTOprazole SOD 40 MG TAB PO SCH (07:36)
[2017-05-11] MEDS: LOSARTAN POTASSIUM 50 MG TAB PO SCH (07:36)
[2017-05-11] MEDS: TIOTROPIUM BROMIDE 5 PUFF/90 MCG INH INH SCH (07:38)
[2017-05-11] MEDS: KETOCONAZOLE 2% CR 15 GM TUBE EXT SCH (07:39)
[2017-05-11] MEDS: MOMETASONE FUROATE 14 PUFF/1 INHALER INH SCH (07:39)
[2017-05-11] MEDS: DOCUSATE SODIUM 100 MG CAP PO SCH (07:39)
[2017-05-11] MEDS: KETOROLAC TROMETHAMINE 30 MG/ML VIAL IV PRN (07:43)
[2017-05-11 08:22] VITALS: BP 189/96; PULSE 58; TEMP 36.6; O2SAT 98
[2017-05-11 08:57] VITALS: O2SAT 98
[2017-05-11] MEDS: ONDANSETRON INJ 2 MG/ML 2 ML VIAL IV PRN (09:02)
[2017-05-11 10:28] VITALS: BP_SYST 206; BP_SYST 212; BP_DIAS 115; BP_DIAS 126
[2017-05-11] MEDS ORDERED: HydrALAZINE HCL 20 MG/ML VIAL ONE (10:30)
[2017-05-11] MEDS ORDERED: NURSING VERBAL MED ORDER ONE (10:45)
[2017-05-11 10:58] VITALS: BP 162/96
[2017-05-11] MEDS ORDERED: ASPEC325 PO (12:27)
[2017-05-11] MEDS ORDERED: ACET-1138 PO (12:27)
[2017-05-11] MEDS ORDERED: NZRCR EXT (12:27)
[2017-05-11] MEDS ORDERED: AMOX875T PO (12:27)
[2017-05-11] MEDS ORDERED: DXY100 PO (12:27)
--- NOTE | 2017-05-11 12:31 | Discharge Instructions ---
Discharge Instructions Date of Service May 11, 2017. Admission Reason for Admission: Cellulitis Of Right Upper Arm Discharge Discharge Diagnosis / Problem: Right arm septic thrombophlebitis,Strep bacteremia Discharge Goals Goal(s): Improve disease control, Diagnostic testing, Therapeutic intervention Activity Recommendations Activity Limitations: resume your previous activity Shower/Bathe: no limitations . Instructions / Follow-Up Instructions / Follow-Up Please finish out the entire course of both antibiotics (Augmentin and doxycycline) twice a day. Follow up with your PCP within 1 week. You should take aspirin twice a day x 1 week, and apply warm packs to the arm to help with the pain and inflammation. If you develop worsening redness, fevers, or worsening pain in the arm, please call your doctor right away. It is a good idea to keep an eye on your blood pressure daily at home. It was a bit high on the day of discharge, but came down after taking your medication. Current Hospital Diet Patient's current hospital diet: Regular Diet Discharge Diet Recommended Diet: AHA Diet (Heart Healthy) Procedures Procedures Performed: Doppler ultrasound right upper extremity Ultrasound of right arm x 2 Elbow xray-right Echocardiogram Pending Studies Studies pending at discharge: yes List of pending studies: Final repeat Blood cultures drawn 05/09/17 Medical Emergencies . Who to Call and When: Medical Emergencies: If at any time you feel your situation is an emergency, please call 911 immediately. . Non-Emergent Contact Non-Emergency issues call your: Primary Care Provider Call Non-Emergent contact if: you have a fever, temperature is above 100.5, your pain is not controlled, your pain is worsening, your pain is unusual for you, your pain is concerning you, you have any medication questions . . "Provider Documentation" section prepared by Mary Carlson. .
[2017-05-11 12:35] VITALS: BP 162/96; PULSE 58; TEMP 36.6; O2SAT 98
== END 2017-05-11 14:00 | disposition home or self-care (01) | DRG 872 ==
LOC: C.EDB 15:36 → C.4E 19:58 → EDBEDREQSVC 20:08 → EDBEDREQTM 20:08 → ENRESERV 20:25
PROVIDERS: ADMIT Hospitalist; ATTEND Family Medicine
DX: R78.81 Bacteremia (principal); L03.113 Cellulitis of right upper limb; B95.1 Streptococcus, group B, as the cause of diseases classified elsewhere; I80.8 Phlebitis and thrombophlebitis of other sites; S40.851A Superficial foreign body of right upper arm, initial encounter; W45.8XXA Other foreign body or object entering through skin, initial encounter; Y93.H3 Activity, building and construction; J44.9 Chronic obstructive pulmonary disease, unspecified; I10 Essential (primary) hypertension; F41.9 Anxiety disorder, unspecified; K21.9 Gastro-esophageal reflux disease without esophagitis; N40.0 Benign prostatic hyperplasia without lower urinary tract symptoms; K59.00 Constipation, unspecified; B35.6 Tinea cruris; Z86.14 Personal history of Methicillin resistant Staphylococcus aureus infection; Z87.898 Personal history of other specified conditions; Z87.891 Personal history of nicotine dependence; Z79.1 Long term (current) use of non-steroidal anti-inflammatories (NSAID); Z79.51 Long term (current) use of inhaled steroids; Z79.899 Other long term (current) drug therapy; Z88.2 Allergy status to sulfonamides; Z88.5 Allergy status to narcotic agent; Z91.02 Food additives allergy status; Z96.653 Presence of artificial knee joint, bilateral; Z82.5 Family history of asthma and other chronic lower respiratory diseases; Z82.49 Family history of ischemic heart disease and other diseases of the circulatory system; Z82.3 Family history of stroke

== ENCOUNTER → 2017-09-07 | Outpatient (CLI) | payer OTHER ==
[~2017-09-07] MED LIST changes: -ACET-1138 PO; -CHOL1000 PO; -CLC100 PO; -CYM60 PO; +OFLO0.3S OPL; +PRED1SUS3 OPL; +PROP1CAP PO; -PROP80TA2 PO; +RXC5 PO; +SUCR1TAB29 PO
[2017-09-07 12:40] LABS: PTT PATIENT 29.6 SECONDS (21.0-31.0)
[2017-09-07 13:06] LABS: BASO % 0.6 %; BASO ABS # 0.03 K/uL (0-0.2); EOS % 3.5 %; EOS ABS # 0.19 K/uL (0-0.5); HEMATOCRIT 42.4 % (42-52); HEMOGLOBIN 13.8 g/dL (14.0-18.0); IG# 0.01 K/uL (0.00-0.02); LYMPH % 27.3 %; LYMPH ABS # 1.49 K/uL (1.2-3.4); MEAN CELL VOLUME 84.6 fL (80-100); MEAN CORPUSCULAR HEMOGLOBIN 27.5 pg (25-34); MEAN CORPUSCULAR HGB CONC 32.5 g/dl (32-36); MEAN PLATELET VOLUME 9.4 fL (7.4-10.4); MONO % 8.8 %; MONO ABS # 0.48 K/uL (0.11-0.59); NEUT % 59.6 %; NEUT ABS # 3.25 K/uL (1.4-6.5); PLATELET COUNT 147 K/uL (130-400); RED CELL DISTRIBUTION WIDTH CV 13.3 % (11.5-14.5); RED CELL DISTRIBUTION WIDTH SD 40.7 fL (36.4-46.3); WHITE BLOOD COUNT 5.45 K/uL (4.8-10.8)
[2017-09-07 13:39] LABS: BLOOD UREA NITROGEN 10 mg/dl (7-18); CALCIUM 8.7 mg/dl (8.5-10.1); CARBON DIOXIDE 27 mmol/L (21-32); CREATININE 0.94 mg/dl (0.60-1.40); GLUCOSE 133 mg/dl (70-99); SODIUM 138 mmol/L (136-145)
== END | disposition home or self-care (01) ==
LOC: C.LAB 14:35
PROVIDERS: ATTEND Orthopaedic Surgery
DX: Z01.818 Encounter for other preprocedural examination (principal)

== ENCOUNTER 2017-09-14 05:07 | Day surgery (SDC) | payer OTHER ==
--- NOTE | 2017-09-05 08:19 | History and Physical ---
"History & Physical Date Sep 05, 2017. Chief Complaint Left Shoulder pain History of Present Illness left shoulder pre-op evaluation for 09-14-17 Left shoulder scope, SAD, EDC, Rotator cuff repair Mr Reed is a pleasant 62 year old male who is here for pre-op evaluation for surgery. He states that the symptoms have been gradual, no recent injury but states he was playing frisbee about 30 years ago and dove into a tree, fracturing his clavicle. The symptoms occur constantly with intermittent worsening. Currently the patient states that the symptoms are moderate-severe. The pain is described as aching and throbbing. The symptoms occur intermittently. The symptoms are aggravated by daily activities, lifting away from the body, repetitive activities, reaching overhead, sleeping on the affected side and throwing overhand. He is also experiencing decreased mobility , nocturnal awakening and weakness. The patient has had a previous x-ray and MRI. Prior NSAIDs include Aleve. Prior pain medications include Tylenol. Patient has had previous therapy. Patient is Retired and Right hand dominant. Past Medical/Surgical History Medical Problems: (1) Asthma, Unspecified (2) Hypertension Nos (3) Rheumatoid Arthritis (4) Hiatal Hernia (5) GERD (6) COPD Surgical Problems: (1) Carpal Tunnel Syndrome (2) I&D left arm abscess (3) Left TKA 2016 (4) Right TKA 2016 Additional History Other: 5'11' 265 pounds O2- 95% on room air Pulse- 70 BP 170/100 Allergies Coded Allergies: Acesulfame Potassium (Unverified Allergy, Severe, SEVERE RASH & VOMIT, ) Buprenorphine/Naloxone (Unverified Allergy, Severe, SEVERE RASH & VOMIT, ) Sulfa Antibiotics (Verified Allergy, Unknown, RASH / ITCHINESS, 05/07/17) Home Medications Scheduled Aspirin (Aspirin), 325 MG PO BID Cholecalciferol (Vitamin D3), 2,000 INTER.UNIT PO QAM Doxycycline Hyclate (Doxycycline Hyclate), 100 MG PO BID Gabapentin (Neurontin), 600 MG PO QAM Ketoconazole (Ketoconazole), 1 APPLN EXT BID Losartan Potassium (Cozaar), 100 MG PO QAM Mometasone Furoate (Inhalation (Asmanex Twisthaler 120 Me), 1 PUFF INH DAILY Omeprazole (Prilosec), 40 MG PO QAM Propranolol HCl Sustained-Rele (Inderal Xl), 80 MG PO BID Sildenafil Citrate (Viagra), 100 MG PO PRN Sucralfate (Carafate), 1 GM PO ACHS Tamsulosin Hcl (Flomax), 0.4 MG PO QPM Tiotropium [place] (Spiriva Handihaler), 1 CAP INH DAILY Scheduled PRN Acetaminophen (Tylenol Extra Strength), 1,000 MG PO TID PRN for Pain Albuterol Sulfate (Proventil Hfa), 2 PUFFS INH QID PRN for Shortness of Breath Hydroxyzine HCl (Hydroxyzine HCl), 10 MG PO BID PRN for Anxiety Physical Examination Skin: warm/dry, no rash Eyes: normal inspection, EOMI, sclerae normal ENT: normal ENT inspection, pharynx normal Head: normocephalic, atraumatic Neck: supple, no adenopathy, trachea midline Respiratory/Chest: no respiratory distress, + pertinent finding (+ expiratory wheezing noted) Cardiovascular: regular rate, rhythm, no edema, no murmur Abdomen / GI: normal bowel sounds, non tender Addiitonal Comments: Left Shoulder Physical Exam Exam Findings Details Elbow ROM L * Active ROM - Factors: normal, Description: active pain free range of motion. Passive ROM - Factors: normal, Description: passive pain free range of motion. Strength UE * Strength Description - Shoulder: Left: strength is decreased. Strength UE Normal Strength Description - Elbow: Left: strength is normal. Wrist : Left: strength is normal. Shoulder * Inspection - Ecchymosis - Left: none. Palpation - Tenderness - Left: subacromial, biceps tendon. Stability | Laxity - Biceps tendon - Jimenez's - Left : Positive. SLAP tests - Left: Positive. Speed's test - Left: Positive. Rotator cuff - Gan - Left: Positive. Cross Body - Left: Positive. Neer's - Left: Positive. Strength tests - External rotation - Left: Abnormal. Supraspinatus - Left: Abnormal. Shoulder Comments Radial/Median/ulnar nerves intact. Radial pulse +2 Shoulder Normal Inspection - Atrophy - Left: Absent. Deformities - Left: Absent. Posture - Left: Symmetrical. Rhythm - Left: Normal. Skin | Scar - Left: Normal. Palpation - Crepitus - Left: Absent. Stability | Laxity - Anterior apprehension - Left: Negative. Relocation - Left: Negative. Rotator cuff - Belly press - Left: Negative. Lift off test - Left: Negative. Strength tests - Shoulder shrug - Left: Normal. Shoulder ROM L * Active ROM - Ext Rot 90 Abd: 60 degrees, Flexion: 160 degrees, Ext Rot 90 Flex: 60 degrees, Int Rot: L5, Abduction: 160 degrees, Factors: pain , Description: active painful range of motion. Passive ROM - Ext Rot 90 Abd: 90 degrees, Flexion: 180 degrees, Ext Rot 90 Flex: 90 degrees, Int Rot: L5, Abduction: 180 degrees, Factors: normal, Description: passive pain free range of motion. Shoulder ROM R * Active ROM - Ext Rot 90 Abd: 90 degrees, Int Rot 90 Abd: 90 degrees, Flexion: 180 degrees, Extension: 60 degrees, Ext Rot 90 Flex: 90 degrees, Int Rot: T4, Abduction: 180 degrees, Adduction: 50 degrees, Ext Rot 0 Abd: 80 degrees, Cross - Body Add: 14 degrees. Passive ROM - Ext Rot 90 Abd: 90 degrees, Int Rot 90 Abd: 90 degrees, Flexion: 180 degrees, Extension: 60 degrees , Ext Rot 90 Flex: 90 degrees, Int Rot: T4, Abduction: 180 degrees, Adduction: 50 degrees, Ext Rot 0 Abd: 80 degrees, Cross - Body Add: 14 degrees. Wrist ROM - L * Active ROM - Factors: normal, Description: active pain free range of motion. Passive ROM - Factors: normal, Description: passive pain free range of motion. Neurovascular UE Normal Description - Normal. Left shoulder X-ray: djd AC joint, no acute bony pathology Left Shoulder MRI: complete tear Rotator cuff, complete tear long head biceps tendon, DJD AC joint Diagnosis Left shoulder rotator cuff tear, with DJD AC joint, tear long head of biceps tendon Plan of Treatment Risks and benefits of procedure have been discussed in detail, has failed conservative measures and would like to proceed with left shoulder scope, SAD/ EDC and rotator cuff repair. will provide Rx for Percocet for post-op pain, plan to do outpatient PT at [facility] f/u 2 weeks post-op. will obtain medical clearance and routine PATs."
[2017-09-06 10:17] VITALS: BMI 37.0
--- NOTE | 2017-09-06 13:04 | PAT Medication Instructions ---
Service Date Sep 06, 2017. Current Home Medication List Albuterol Sulfate (Proventil Hfa), 2 PUFFS INH QID PRN for Shortness of Breath Gabapentin (Neurontin), 600 MG PO QAM Hydroxyzine HCl (Hydroxyzine HCl), 10 MG PO BID PRN for Anxiety Losartan Potassium (Cozaar), 100 MG PO QAM Mometasone Furoate (Inhalation (Asmanex Twisthaler 120 Me), 1 PUFF INH DAILY Ofloxacin (Oph) (Ocuflox Oph Soln), 1 DROPS OPL QID Omeprazole (Prilosec), 40 MG PO QAM Prednisolone Acetate (Ophth) (Pred Forte 1% Oph), 1 DROPS OPL QID Propranolol HCl Sustained-Rele (Inderal Xl), 80 MG PO BID Sildenafil Citrate (Viagra), 100 MG PO PRN Sucralfate (Carafate), 1 GM PO ACHS Tamsulosin Hcl (Flomax), 0.4 MG PO QPM Tiotropium [place] (Spiriva Handihaler), 1 CAP INH DAILY Medication Instructions For Your Scheduled Surgery - Continue as directed: Tiotropium [place] (Spiriva Handihaler), 1 CAP INH DAILY Mometasone Furoate (Inhalation (Asmanex Twisthaler 120 Me), 1 PUFF INH DAILY - Hold the following medications the morning of surgery: Losartan Potassium (Cozaar), 100 MG PO QAM Sildenafil Citrate (Viagra), 100 MG PO PRN Sucralfate (Carafate), 1 GM PO ACHS - Take the following medications the morning of surgery with a sip of water: Propranolol HCl Sustained-Rele (Inderal Xl), 80 MG PO BID Prednisolone Acetate (Ophth) (Pred Forte 1% Oph), 1 DROPS OPL QID Omeprazole (Prilosec), 40 MG PO QAM Ofloxacin (Oph) (Ocuflox Oph Soln), 1 DROPS OPL QID Albuterol Sulfate (Proventil Hfa), 2 PUFFS INH QID PRN for Shortness of Breath ( if needed) Gabapentin (Neurontin), 600 MG PO QAM Hydroxyzine HCl (Hydroxyzine HCl), 10 MG PO BID PRN for Anxiety (if needed) - Take the following medications as scheduled the night before surgery: Tamsulosin Hcl (Flomax), 0.4 MG PO QPM Sucralfate (Carafate), 1 GM PO ACHS Sildenafil Citrate (Viagra), 100 MG PO PRN (if needed) Propranolol HCl Sustained-Rele (Inderal Xl), 80 MG PO BID Prednisolone Acetate (Ophth) (Pred Forte 1% Oph), 1 DROPS OPL QID Ofloxacin (Oph) (Ocuflox Oph Soln), 1 DROPS OPL QID Albuterol Sulfate (Proventil Hfa), 2 PUFFS INH QID PRN for Shortness of Breath ( if needed) Hydroxyzine HCl (Hydroxyzine HCl), 10 MG PO BID PRN for Anxiety (if needed) If you have any questions please call us at [phone] or [phone] or [phone]
[2017-09-07 11:55] VITALS: BMI 38.0
[~2017-09-14] VITALS: Ht 180.3 cm; Wt 124.0 kg
[~2017-09-14 05:07] MED LIST changes: -RXC5 PO
[2017-09-14 05:25] VITALS: BP 156/96; PULSE 70; TEMP 36.7; O2SAT 93; Ht 180.3 cm; Wt 124.0 kg
[2017-09-14] MEDS ORDERED: CEFAZOLIN 3000MG IV PUSH 22.5 ML IV SCH (06:00)
[2017-09-14] MEDS ORDERED: LACTATED RINGER'S 1000ML 1,000 ML IV SCH (06:00)
[2017-09-14] MEDS ORDERED: EpINEphrine HCL INJ 1 MG/ML 1ML SYRINGE ONE (06:32)
[2017-09-14] MEDS ORDERED: ROPIVACAINE 0.5% 5 MG/ML 30 ML VIAL ONE (06:37)
[2017-09-14] MEDS ORDERED: LIDOCAINE HCL 2% 2 ML VIAL (20MG/ML) ONE (06:42)
[2017-09-14] MEDS ORDERED: ONDANSETRON INJ 2 MG/ML 2 ML VIAL ONE (06:42)
[2017-09-14] MEDS ORDERED: PROPOFOL IV EMULSION 10 MG/ML 20 ML VIAL ONE (06:42)
[2017-09-14] MEDS ORDERED: FENTANYL CITRATE INJ 50 MCG/1 ML 2 ML VIAL ONE ×2 (06:42→08:18)
[2017-09-14] MEDS ORDERED: DEXAMETHASONE SOD INJ 4 MG/ML VIAL ONE (06:42)
[2017-09-14] MEDS ORDERED: MIDAZOLAM HCL 1 MG/ML 2ML VIAL ONE ×2 (06:42→06:43)
[2017-09-14] MEDS ORDERED: ONDANSETRON INJ 2 MG/ML 2 ML VIAL IV PRN ×2 (07:45→08:15)
[2017-09-14] MEDS ORDERED: LABETALOL HCL IV 5 MG/ML 20ML IV PRN (07:45)
[2017-09-14] MEDS ORDERED: KETOROLAC TROMETHAMINE 30 MG/ML VIAL IV. PRN (07:45)
[2017-09-14] MEDS ORDERED: HYDROmorphone INJ 1 MG/ML SYR IV PRN (07:45)
[2017-09-14] MEDS ORDERED: ATROPINE SULFATE 0.1 MG/ML 5ML SYR IV PRN (07:45)
[2017-09-14] MEDS ORDERED: PHENYLEPHRINE HCL INJ 10 MG/ML VIAL ONE (07:54)
[2017-09-14] MEDS ORDERED: NEOSTIGMINE METHYLSULFATE 5 MG/5 ML SYR ONE (07:54)
[2017-09-14] MEDS ORDERED: GLYCOPYRROLATE INJ 0.2 MG/ML VIAL ONE (07:54)
[2017-09-14] MEDS ORDERED: FLUMAZENIL 0.1 MG/1 ML 10 ML VIAL IV ONE (07:54)
[2017-09-14] MEDS ORDERED: ROCURONIUM BROMIDE 10 MG/ML 5 ML VIAL ONE (07:54)
--- NOTE | 2017-09-14 07:54 | [facility] Post Operative Brief Note ---
Immediate Operative Summary Operative Date Sep 14, 2017. Pre-Operative Diagnosis Left shoulder rotator cuff tear, with DJD AC joint, tear long head of biceps tendon Post-Operative Diagnosis Same as preop Procedure(s) Performed Left Shoulder Arthroscopic Subacromial Decompression, Distal Clavicle Excision, with Rotator Cuff Debridement of articular side cuff tear debridement of stump biceps tendon tear 100% Surgeon Dr. Casiano Clinical Physician Assistant Surgeon(s) Cuco Thorne PA-C Estimated Blood Loss 2 ml Findings Consistent with Post-Op Diagnosis Specimens none per Surgeon Drains None Anesthesia Type General Regional Complication(s) none Disposition Disposition: Recovery Room / PACU
--- NOTE | 2017-09-14 07:57 | [facility] Operative Report ---
Operative Report Operative Date Sep 14, 2017. Pre-Operative Diagnosis Left shoulder rotator cuff tear, with DJD AC joint, tear long head of biceps tendon Post-Operative Diagnosis Same as preop Procedure(s) Performed Left Shoulder Arthroscopic Subacromial Decompression, Distal Clavicle Excision, with Rotator Cuff Debridement of articular side cuff tear debridement of stump biceps tendon tear 100% Surgeon Dr. Casiano Nephrology Nurse Surgeon(s) Cuco Thorne PA-C Estimated Blood Loss 2 ml Findings Patient presents with long-standing pain regarding left shoulder no response to conservative therapy including physical therapy anti-inflammatories relative rest activity modification as well as subacromial injection presents with above findings AC joint DJD impingement syndrome articular side cuff tear complete tear biceps tendon with an incarcerated bicep tendon stump Specimens none per Surgeon Drains None Anesthesia Type General Regional Complication(s) none Disposition Recovery Room / PACU Indications Patient presents as a 62-year-old white male with complaints of ongoing pain interval to his left shoulder is been no response to conservative therapy including physical therapy anti-inflammatories relative rest activity modifications he presents above findings noted above were noted time surgery with impingement syndrome AC joint easily DJD impingement syndrome articular sided rotator cuff tear as well as a tear of the biceps tendon Description of Procedure After proper prepping draping the left shoulder region a posterior or scopic portals were created are scop examination beginning region of the glenohumeral joint revealed the glenohumeral joint to be in satisfactory alignment position there is evidence of grade 3 and 4 chondral lesion measuring 1 x 2 cm involving humeral head that was debrided to stable margin of the rotator cuff and the heart articular side was noted evidence of some articular fraying and partial- thickness tearing of full-thickness tear was noted the biceps tendon was completely torn and retracted there was a stump of biceps tendon was debrided back to stable margin intra-articularly the subacromial space revealed to be also markedly thickened hypertrophic bursal tissue subacromial decompression was performed as well as anterior-inferior acromioplasty as well as a distal clavicle excision was excised 10 mm back to stable margin as well as inferior osteophytes of acromion which is converted from a type III to type I and distal clavicle removed meticulous hemostasis obtained to maintain the bursal side of the rotator cuff was visualized no full-thickness tear was noted socially informed thorough subacromial decompression meticulous hemostasis was obtained and maintained at all times skin portals are closed with 4-0 nylon in a sterile compressive dressing was placed patient was taken recovery in stable condition with a sling please note Cuco MADERA was necessary prepping draping traction position of arms wound closure was necessary for the case I attest to the content of the Intraoperative Record and any orders documented therein. Any exceptions are noted below.
[2017-09-14] MEDS ORDERED: SODIUM CHLORIDE 0.9% 1000ML 1,000 ML IV SCH (08:06)
[2017-09-14] MEDS ORDERED: RXC5 PO (08:09)
--- NOTE | 2017-09-14 08:10 | Discharge Instructions ---
Discharge Instructions Date of Service Sep 14, 2017. Visit Reason for Visit: Left Shoulder Osteoarthritis, Complete Rtc Tear/Ru Discharge Discharge Diagnosis / Problem: left shoulder impingement, DJD AC joint Discharge Goals Goal(s): Decrease discomfort, Improve function, Increase independence Activity Recommendations Activity Limitations: as noted below Anesthesia . Post Anesthesia Instructions: If you have had General Anesthesia or IV Sedation: * Do not drive today. * Resume driving when surgeon permits. * Do not make important decisions or sign legal documents today. * Call surgeon for: 1. Temperature elevations greater than 101 degrees F. 2. Uncontrollable pain. 3. Excessive bleeding. 4. Persistent nausea and vomiting. 5. Medication intolerance (nausea, vomiting or rash). * For nausea and vomiting use only clear liquids such as: tea, soda, bouillon until nausea subsides, then gradually increase diet as tolerated. * If you have any concerns or questions, call your surgeon's office. If physician is unavailable and it is an emergency, call 911 or go to the nearest emergency room. . Instructions / Follow-Up Instructions / Follow-Up [facility] [place] DISCHARGE INSTRUCTIONS: SHOULDER ARTHROSCOPY with Distal Clavicle Excision SELF CARE INSTRUCTIONS AFTER: A. You are allowed to use your arm actively as comfort allows. Recommend NOT doing repetitive overhead activity or heavy lifting. B. You should start Physical Therapy within 1-3 days from your surgery. You will be provided a prescription with specific restrictions, if needed, at time of discharge. C. You can discontinue the sling as comfort allows within one to two days after surgery. A. At 48 hours post-operatively, you may change your dressing. . (Leave white steri-strips intact if present). Use band-aids and change daily. You are allowed to shower at this time and get the incision area wet, but DO NOT soak or submerge incision area in water. (No baths, swimming pools, hot tubs) B. Do NOT apply soap or any ointment/lotions directly over incision. C. You may use ice as needed to operative shoulder SPECIAL CARE INSTRUCTIONS: VERY IMPORTANT TO READ AND REVIEW A. There are a few signs you need to watch for after you are home. Call [facility] at [phone] if you experience any of the following: a. Increased severe shoulder pain. Some pain is expected especially when you exercise b. Increased swelling in your shoulder or arm; pain or swelling in either upper extremity. (Note: swelling and stiffness is normal and expected for several weeks post op, depending on type of shoulder surgery you had). c. Any fluid or drainage from the incision; redness of the incision. d. Shortness of breath or chest pain. B. Please call [facility] at [phone] if you have any questions or concerns about your operation or recovery. C. Call your physician if: a. Temperature is greater than 101 degrees (F). b. Pain is not relieved by prescribed pain medications. c. Increase drainage or redness from incision. d. Unanswered questions or concerns. D. Pain Medication: a. You will be prescribed pain medication upon discharge that should last till your first post-operative appointment. b. You may also take Advil or Ibuprofen between medication doses if you do not have any contraindication to taking them. c. You may also take Advil or Ibuprofen in place of your pain medication if the pain is tolerable. d. If you experience nausea and/or skin rash, discontinue this medication and contact our office for an alternative medication. e. Caution- narcotic pain medication can cause constipation. FOLLOW UP VISIT: Please call [facility] at [phone] to schedule a follow up appointment 10-14 days from your surgery date. Diet Recommendations Recommended Home Diet: resume previous diet Procedures Procedures Performed: Left Shoulder Arthroscopic Subacromial Decompression, Distal Clavicle Excision, with Rotator Cuff Debridement of articular side cuff tear debridement of stump biceps tendon tear 100% Pending Studies Studies pending at discharge: no Medical Emergencies . Who to Call and When: Medical Emergencies: If at any time you feel your situation is an emergency, please call 911 immediately. . Non-Emergent Contact Non-Emergency issues call your: Primary Care Provider, Surgeon . . "Provider Documentation" section prepared by Cuco Thorne. . [place] Drug Monitoring Program Search Results: patient reviewed within database, no issues identified
[2017-09-14] MEDS ORDERED: NURSING VERBAL MED ORDER ONE (08:15)
[2017-09-14] MEDS ORDERED: FENTANYL CITRATE INJ 50 MCG/1 ML 2 ML VIAL IV PRN (09:00)
[2017-09-14 09:07] VITALS: BP 118/75; PULSE 81; TEMP 36.6; O2SAT 93
[2017-09-14 09:55] VITALS: BP 134/93; PULSE 85; O2SAT 93
[2017-09-14 10:20] VITALS: BP 145/94; PULSE 78; TEMP 36.6; O2SAT 99
--- NOTE | 2017-09-14 10:36 | Anesthesiology Progress Note ---
Anesthesia Post Op Note Date & Time Sep 14, 2017 at 10:35 Vital Signs Pain Intensity: 0 Vital Signs Past 12 Hours Date Time Temp Pulse Resp B/P (MAP) Pulse Ox O2 Delivery O2 Flow Rate FiO2 09/14/17 08:49 82 18 09/14/17 08:49 36.5 100 Room Air 09/14/17 08:49 82 18 98 09/14/17 08:46 110/75 09/14/17 08:44 81 27 09/14/17 08:44 81 27 94 09/14/17 08:41 122/76 09/14/17 08:39 82 28 98 09/14/17 08:39 82 28 09/14/17 08:38 81 29 96 09/14/17 08:38 83 29 09/14/17 08:36 130/84 09/14/17 08:33 84 23 09/14/17 08:33 84 23 98 09/14/17 08:31 139/86 09/14/17 08:28 83 28 95 09/14/17 08:28 83 28 09/14/17 08:27 84 26 140/87 92 09/14/17 08:27 85 26 09/14/17 08:22 80 24 94 09/14/17 08:22 80 24 09/14/17 08:21 80 24 148/93 98 09/14/17 08:21 80 24 09/14/17 08:17 143/98 09/14/17 08:16 85 19 09/14/17 08:16 85 19 96 09/14/17 08:12 141/86 09/14/17 08:11 84 18 09/14/17 08:11 84 18 96 09/14/17 08:07 124/82 09/14/17 08:06 77 21 09/14/17 08:06 78 21 09/14/17 08:06 36.1 81 16 124/82 96 Oxymask 10 09/14/17 05:25 36.7 70 20 156/96 (116) 93 Room Air Notes Mental Status: alert / awake / arousable, participated in evaluation Pt Amnestic to Procedure: Yes Nausea / Vomiting: adequately controlled Pain: adequately controlled Airway Patency, RR, SpO2: stable & adequate BP & HR: stable & adequate Hydration State: stable & adequate Anesthetic Complications: no major complications apparent
== END 2017-09-14 10:30 | disposition home or self-care (01) ==
LOC: C.ACU 05:07
PROVIDERS: ATTEND Orthopaedic Surgery
DX: M75.102 Unspecified rotator cuff tear or rupture of left shoulder, not specified as traumatic (principal); S46.102A Unspecified injury of muscle, fascia and tendon of long head of biceps, left arm, initial encounter; I10 Essential (primary) hypertension; I25.10 Atherosclerotic heart disease of native coronary artery without angina pectoris; M06.9 Rheumatoid arthritis, unspecified; K44.9 Diaphragmatic hernia without obstruction or gangrene; K21.9 Gastro-esophageal reflux disease without esophagitis; J44.9 Chronic obstructive pulmonary disease, unspecified; E66.9 Obesity, unspecified; Z88.8 Allergy status to other drugs, medicaments and biological substances; Z88.2 Allergy status to sulfonamides; Z79.82 Long term (current) use of aspirin; M19.012 Primary osteoarthritis, left shoulder; Z88.6 Allergy status to analgesic agent; Z86.19 Personal history of other infectious and parasitic diseases; X58.XXXA Exposure to other specified factors, initial encounter

== ENCOUNTER 2018-10-31 12:27 | Inpatient (IN) ==
--- OUTSIDE RECORDS SUMMARY | 2018-10-31 12:29 | External Medical Summary | Continuity of Care Document ---
:1955 Author Name Rajesh Munoz, Provider Address Unavailable Unavailable , Care Team Providers Name Role Phone NonMNPG Alexander, Provider Unavailable [email or web address] Symone Mojica PA-C Unavailable [email or web address] PCP, UNKNOWN Unavailable Unavailable Unavailable Unavailable Unavailable Problems Yeast infection of the skin (112.3) (B37.2) MRSA (methicillin resistant Staphylococcus aureus) (041.12) (A49.02) Lumbar spondylosis (721.3) (M47.816) Memory loss (780.93) (R41.3) Tenosynovitis of right hand (727.05) (M65.9) Preoperative state Arthralgia of multiple sites (719.49) (M25.50) Carpal tunnel syndrome (354.0) (G56.00) 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 Refills: 0 Losartan Potassium 100 MG Oral Tablet; TAKE 1 TABLET DAILY. Refills: 0 rifAMPin 300 MG Oral Capsule; Take 1 tab le twice daily. Start 2 weeks prior to surgery JOCELYN Madsen Start: 28-Jul-2016 Quantity: 28 Refills: 0 Doxycycline Hyclate 100 MG Oral Tablet; 1 tablet twice daily. Start 2 weeks prior to surgery JOCELYN Madsen Start: 28-Jul-2016 Quantity: 28 Refills: 0 Mupirocin 2 % External Ointment; APPLY S PARINGLY TO Inside of Nose TWICE DAILY 2 weeks prior to surgery JOCELYN Madsen Start: 28-Jul-2016 Quantity: 1 15 GM Tube Refills: 0 Chlorhexidine Gluconate 2 % External Liq uid; USE DIRECTED 2 weeks prior to surgery JOCELYN Madsen Start: 28-Jul-2016 Quantity: 1 118 ML Bottle Refills: 1 Nystatin [id number] UNIT/GM External Powder; APPLY 2-3 TIMES DAILY TO AFFECTED AREA(S). JOCELYN Madsen Start: 28-Jul-2016 Quantity: 1 30 GM Bottle Refills: 1 Asmanex HFA 100 MCG/ACT Inhalation Aerosol Refills: 0 traZODone HCl - 100 MG Oral Tablet; TAKE 1 TABLET AT BEDTIME . Refills: 0 Omeprazole 40 MG Oral Capsule Delayed Release; TAKE 1 CAPSUL E DAILY. Refills: 0 Combivent Respimat AERS Refills: 0 MiraLax Oral Packet Refills: 0 Atenolol 100 MG Oral Tablet; TAKE 1 TABLET TWICE DAILY. Refills: 0 buPROPion HCl - 100 MG Oral Tablet; 150 mg daily Refills: 0 Flexeril 10 MG TABS; TAKE 1 TABLET TWICE DAILY. Refills: 0 Voltaren 50 MG TBEC; TAKE 1 TABLET PRN Refills: 0 DULoxetine HCl - 60 MG Oral Capsule Jennifer yed Release Particles; TAKE 1 CAPSULE DAILY. Refills: 0 Procedures History of Wrist Surgery Status: [facility] ed 14-Feb-2006 0:00 Immunizations Immunizations not documented Plan of Treatment Planned Observations Planned Goals not documented Results No Known Results Results not documented
[2018-10-31] MEDS ORDERED: VANCOMYCIN CONSULT ACTIVE PRN (13:10)
[2018-10-31] MEDS ORDERED: VANCOMYCIN HCL 2,750 MG in SODIUM CHLORIDE 0.9% 500 ML IV ONE (13:10)
[2018-10-31] MEDS ORDERED: methylPREDNISolone 125 MG/2 ML VIAL IV STA (13:12)
[2018-10-31] MEDS ORDERED: ALBUT/IPRATROP 3MG/0.5MG NEB 3 ML VIAL NEB STA (13:12)
--- NOTE | 2018-10-31 13:51 | XRay Report ---
XR chest 1V portable CLINICAL HISTORY: Sepsis. COMPARISON STUDY: Chest CT and chest radiograph March 12, 2016. Chest radiograph June 21, 2016. FINDINGS: There is no pneumothorax or pleural effusion. There is no consolidation to suggest pneumoni a. There is pulmonary vascular congestion without overt pulmonary edema. Cardiomegaly is unchanged. IMPRESSION: Pulmonary vascular congestion without overt pulmonary edema. Electronically signed by: Alberto Suarez M.D. 10/31/2018 1:50 PM
[2018-10-31 14:09] LABS: Basophils # (auto) 0.04 K/uL (0-0.2); Basophils % (auto) 0.4 %; Eosinophils # (auto) 0.56 K/uL (0-0.5); Eosinophils % (auto) 5.9 %; Hematocrit (blood only) 40.1 % (42-52); Hemoglobin 11.9 g/dL (14.0-18.0); Immature Granulocytes # (auto) 0.03 K/uL (0.00-0.02); Immature Granulocytes % (auto) 0.3 %; Lymphocytes # (auto) 1.53 K/uL (1.2-3.4); Lymphocytes % (auto) 16.2 %; Mean Corpuscular Hemoglobin 25.3 pg (25-34); Mean Corpuscular Hgb Conc 29.7 g/dL (32-36); Mean Corpuscular Volume 85.3 fL (80-100); Mean Platelet Volume 9.9 fL (7.4-10.4); Monocytes # (auto) 1.06 K/uL (0.11-0.59); Monocytes % (auto) 11.2 %; Neutrophils # (auto) 6.25 K/uL (1.4-6.5); Platelet Count 101 K/uL (130-400); RDW Coefficient of Variation 15.5 % (11.5-14.5); White Blood Count 9.47 K/uL (4.8-10.8)
[2018-10-31 14:12] LABS: Base Excess VBG 5.5 mEq/L; Oxygen Saturation VBG 76.9 %; pH VBG 7.31 (7.36-7.41)
[2018-10-31 14:27] LABS: Partial Thromboplastin Time 26.5 Seconds (21.0-31.0); Prothrombin Time 10.3 Seconds (9.0-12.0)
[2018-10-31 14:29] LABS: Albumin Level 3.2 gm/dl (3.4-5.0); Calcium 8.2 mg/dl (8.5-10.1); Creatinine Clr Calc Pharmacy 101.1 ml/min; Est GFR (African American) 86.8; Est GFR (Non-African American) 74.8; Potassium 4.3 mmol/L (3.5-5.1)
[2018-10-31 14:32] LABS: Albumin Globulin Ratio 0.9 (0.9-2); Bilirubin,Total 0.6 mg/dl (0.2-1); Globulin 3.6 gm/dl (2.5-4.0); Total Protein 6.8 gm/dl (6.4-8.2)
[2018-10-31 14:37] LABS: Appearance Urine Clear (Clear); Bacteria Urine Automated Negative (Negative); Bilirubin Urine Negative (Negative); Blood Urine Negative (Negative); Color Urine Yellow; Glucose Urine UA Negative (Negative); Ketones Urine Negative (Negative); Leukocyte Esterase Urine Negative (Negative); Nitrite Urine Negative (Negative); Protein Urine 2+ (Negative); RBC Urine Automated 0-4 /hpf (0-4); Specific Gravity Urine 1.022 (1.000-1.030); Urobilinogen Urine Negative (Negative); pH Urine 6.5 (4.5-7.5)
--- NOTE | 2018-10-31 17:21 | History & Physical Report ---
Date of Service October 31, 2018 Assessment & Plan (1) Cellulitis of hand: h/o MRSA infections that have required I/D will cover with MRSA as well as Zosyn blood cultures drawn X ray of the right hand with no bony abnormalities no lymphangitic spread noted at this time follow for any change in WBC, vitals if swelling does not improve then may consider ortho consult also, has h/o septic thrombophlebitis and GBS bacteremia may consider right UE US tomorrow as well (2) MRSA infection: h/o multiple MRSA infections have required incision and drainage cover with Vancomcyin (3) COPD exacerbation: increased work of breathing, mild wheezing on exam, some mild hypoxia will treat with Solu Medrol 40 q12, Duoneb the Zosyn that is used for cellulitis will cover lungs as well (4) Hypoxia: dropped to low 80's on room air due to COPD exacerbation, will treat the condition and hypoxia should improve (5) Hypertension: continue Losartain, Propranolol (6) Neuropathy: continue Gabapentin History of Present Illness Chief Complaint: my right hand is swollen Primary Care Provider: Doc Stoner MD 63 yo [facility], presents to the ED today c/o right hand pain and swelling of about 3 days duration. The patient has a history of MRSA skin infections, has required I&D on three separate occasions, has required surgery on the right hand in the past. He denies any recent injury to the right hand, has not noticed a breakdown in the skin in that area. However, he has been experiencing a diffuse vesicular rash the past few weeks, was recently biopsied and he was told to follow up with dermatology in [facility]. He does not recall the name of the rash, will try to get results. He has not been experiencing any fever or chills, his appetite has been stable. The hand is tender to touch and tender when he tries to flex or extend or move his fingers. No red streaks have been seen going up the arm. His breathing is a little more labored than normal for him. He has a non- productive cough. 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 He denies any chest pain or pressure. He has been eating well, moving his bowels, no diarrhea. Has some occasional hemorrhoids. In the ED he was slightly hypoxic on room air but in no distress. His other vitals were stable, no fever, WBC normal. Cr and electrolytes stable. VBG showed a pH of 7.31 and CO in the 60's. He said his breathing was better after dose of Solu Medrol and Duoneb and he was given a dose of Vancomycin for the possible hand infection. Allergies Allergy/AdvReac Type Severity Reaction Status Date / Time acesulfame Allergy Severe SEVERE Verified 10/31/18 14:51 RASH & VOMIT buprenorphine Allergy Severe SEVERE Verified 10/31/18 14:51 RASH & VOMIT naloxone Allergy Severe SEVERE Verified 10/31/18 14:51 RASH & VOMIT Suboxone Allergy Severe SEVERE Verified 09/14/17 05:40 RASH & VOMIT acetaminophen Allergy Unknown SEE NOTES Verified 10/31/18 14:51 Sulfa (Sulfonamide Allergy Unknown RASH / Verified 10/31/18 14:51 Antibiotics) ITCHINESS quetiapine [From Seroquel] AdvReac Intermediate Nightmare Unverified 10/31/18 14:51 amitriptyline AdvReac Unknown Unknown Unverified 10/31/18 14:51 morphine AdvReac Unknown Unknown Unverified 10/31/18 14:51 Home Medications Home Medications Medication Instructions Recorded Confirmed Type Lactobacillus acidophilus 1 tab PO QAM 10/31/18 10/31/18 History alprostadil 20 mcg INTRA-CAVERNOSAL UD PRN 10/31/18 10/31/18 History artificial saliva (cmce-lytes) 1 spray PO 5XD PRN 10/31/18 10/31/18 History budesonide-formoterol 2 puff INHALATION BID 10/31/18 10/31/18 History buprenorphine HCl 8 mg SUBLINGUAL BID 10/31/18 10/31/18 History gabapentin 600 mg PO TID 10/31/18 10/31/18 History hydroxyzine HCl 25 mg PO QAM 10/31/18 10/31/18 History hydroxyzine HCl 50 mg PO HS 10/31/18 10/31/18 History losartan 100 mg PO QAM 10/31/18 10/31/18 History mesalamine 0.75 g PO BID 10/31/18 10/31/18 History mesalamine with cleansing wipe 4 g ND HS 10/31/18 10/31/18 History mineral oil-hydrophil petrolat 1 applic TOPICAL BID 10/31/18 10/31/18 History [Aquaphor] pantoprazole 40 mg PO BID 10/31/18 10/31/18 History pramoxine 1 applic ND BID 10/31/18 10/31/18 History prazosin 4 mg PO HS 10/31/18 10/31/18 History propranolol 80 mg PO BID 10/31/18 10/31/18 History sennosides 8.6 mg PO BID 10/31/18 10/31/18 History tiotropium bromide 1 cap INHALATION DAILY 10/31/18 10/31/18 History torsemide 40 mg PO QAM 10/31/18 10/31/18 History triamcinolone acetonide 1 applic TOPICAL BID 10/31/18 10/31/18 History Past Med/Surg History Medical History COPD (chronic obstructive pulmonary disease) Chronic pain Hypertension MRSA infection Neuropathy Obesity Surgical History History of incision and drainage Family History Other Hypertension Social History Preferred Language: Ukrainian Communication Ability: Effective Beliefs That Will Affect Care: None Current Living Situation: Spouse Feels Safe at Home: Yes Smoking Status: Former smoker Hx Alcohol Use: No Hx Substance Use: No Review of Systems Review of Systems: All systems reviewed & are unremarkable except as noted in HPI & below Constitutional: no fever, no chills, no sweats, no fatigue, no weakness, no weight loss and no weight gain Eyes: no diplopia and no loss of peripheral vision Ear, Nose, Mouth, Throat: no ear pain, no post nasal drip and no sinus pain/pressure Respiratory: + cough, + dyspnea and + dyspnea on exertion; no chest congestion, no sputum production and no wheezing Cardiovascular: no chest pain, no palpitations, no syncope and no edema Gastrointestinal: no abdominal pain, no nausea, no vomiting, no constipation, no diarrhea/loose stools and no melena Genitourinary: no dysuria and no difficulty urinating Musculoskeletal: + joint pain (right hand and wrist), + swelling (right hand and wrist) and + limited range of motion (right hand and wrist); no back pain Physical Exam Constitutional: WD/WN, vitals as above + obese Eyes: PERRL, conjunctivae normal, anicteric sclerae ENMT: external ear and nose normal, oropharynx normal Neck: trachea midline, no thyromegaly Respiratory: normal respiratory effort; no respiratory distress and no labored breathing Auscultation: + diminished lung sounds and + wheezes (very faint end exhalation); no crackles, no rales and no rhonchi Cardiovascular: RRR, no murmur, no edema Gastrointestinal (Abdomen): normal bowel sounds, soft, nontender, no hepatosplenomegaly Musculoskeletal: Head/Neck/Chest: normocephalic and head atraumatic Spine: no thoracic spinal tenderness and no lumbar spinal tenderness Extremities: + joint enlargement (right hand and wrist) and strength 5/5 throughout; no cyanosis and no clubbing Gait: normal gait Skin: + rash (mild erythema over right hand and wrist) and + lesion (multiple lesions, diffuse rash) Neurologic: patellar DTR's 2+ bilat, sensation intact and PERRL, EOMI, accommodation nl, no face palsy, no dysarthria Psychiatric: A+Ox3, euthymic affect Lymphatic: no cervical or axillary lymphadenopathy Results & Data Vital Signs (Past 12 Hours) Vital Signs Temp Pulse Pulse Resp BP BP Pulse Ox 10/31/18 16:58 85 20 115/65 92 10/31/18 16:00 81 20 117/75 92 10/31/18 15:03 79 18 127/69 91 10/31/18 14:11 91 10/31/18 14:09 79 22 132/91 87 L 10/31/18 13:44 78 98 10/31/18 13:38 22 88 L 10/31/18 12:46 36.9 C 81 24 128/81 83 L Laboratory Results Laboratory Results - last 24 hr 10/31/18 10/31/18 10/31/18 13:56 13:56 13:56 WBC 9.47 RBC 4.70 Hgb 11.9 L Hct 40.1 L MCV 85.3 MCH 25.3 MCHC 29.7 L RDW Std Deviation 49.0 H RDW Coeff of Fely 15.5 H Plt Count 101 L MPV 9.9 Immature Gran % (Auto) 0.3 Neut % (Auto) 66.0 Lymph % (Auto) 16.2 [place] % (Auto) 11.2 Eos % (Auto) 5.9 Baso % (Auto) 0.4 Immature Gran # (Auto) 0.03 H Neut # (Auto) 6.25 Lymph # (Auto) 1.53 [place] # (Auto) 1.06 H Eos # (Auto) 0.56 H Baso # (Auto) 0.04 PT 10.3 INR 1.0 APTT 26.5 PTT Ratio 1.0 VBG pH VBG pCO2 VBG pO2 VBG HCO3 VBG O2 Saturation VBG Base Excess Barometric Pressure Sodium 141 Potassium 4.3 Chloride 103 Carbon Dioxide 33 H Anion Gap 5.0 BUN 15 Creatinine 1.06 Est Cr Clr Drug Dosing 101.1 Est GFR ( Amer) 86.8 Est GFR (Non-Af Amer) 74.8 BUN/Creatinine Ratio 14.0 Glucose 151 H POC Glucose Lactate Calcium 8.2 L Total Bilirubin 0.6 AST 18 ALT 32 Alkaline Phosphatase 129 H Total Protein 6.8 Albumin 3.2 L Globulin 3.6 Albumin/Globulin Ratio 0.9 Urine Color Urine Appearance Urine pH Ur Specific [place] Urine Protein Urine Glucose (UA) Urine Ketones Urine Blood Urine Nitrite Urine Bilirubin Urine Urobilinogen Ur Leukocyte Esterase Urine WBC (Auto) Urine RBC (Auto) U Hyaline Cast (Auto) U Epithel Cells (Auto) Urine Bacteria (Auto) 10/31/18 10/31/18 10/31/18 13:56 13:56 14:12 WBC RBC Hgb Hct MCV MCH MCHC RDW Std Deviation RDW Coeff of Fely Plt Count MPV Immature Gran % (Auto) Neut % (Auto) Lymph % (Auto) [place] % (Auto) Eos % (Auto) Baso % (Auto) Immature Gran # (Auto) Neut # (Auto) Lymph # (Auto) [place] # (Auto) Eos # (Auto) Baso # (Auto) PT INR APTT PTT Ratio VBG pH 7.31 L VBG pCO2 69 H VBG pO2 45 VBG HCO3 34 VBG O2 Saturation 76.9 VBG Base Excess 5.5 Barometric Pressure 736.0 Sodium Potassium Chloride Carbon Dioxide Anion Gap BUN Creatinine Est Cr Clr Drug Dosing Est GFR ( Amer) Est GFR (Non-Af Amer) BUN/Creatinine Ratio Glucose POC Glucose Lactate 1.1 Calcium Total Bilirubin AST ALT Alkaline Phosphatase Total Protein Albumin Globulin Albumin/Globulin Ratio Urine Color Yellow Urine Appearance Clear Urine pH 6.5 Ur Specific [place] 1.022 Urine Protein 2+ H Urine Glucose (UA) Negative Urine Ketones Negative Urine Blood Negative Urine Nitrite Negative Urine Bilirubin Negative Urine Urobilinogen Negative Ur Leukocyte Esterase Negative Urine WBC (Auto) 1-5 Urine RBC (Auto) 0-4 U Hyaline Cast (Auto) 1-5 U Epithel Cells (Auto) 10-20 H Urine Bacteria (Auto) Negative 10/31/18 20:31 WBC RBC Hgb Hct MCV MCH MCHC RDW Std Deviation RDW Coeff of Fely Plt Count MPV Immature Gran % (Auto) Neut % (Auto) Lymph % (Auto) [place] % (Auto) Eos % (Auto) Baso % (Auto) Immature Gran # (Auto) Neut # (Auto) Lymph # (Auto) [place] # (Auto) Eos # (Auto) Baso # (Auto) PT INR APTT PTT Ratio VBG pH VBG pCO2 VBG pO2 VBG HCO3 VBG O2 Saturation VBG Base Excess Barometric Pressure Sodium Potassium Chloride Carbon Dioxide Anion Gap BUN Creatinine Est Cr Clr Drug Dosing Est GFR ( Amer) Est GFR (Non-Af Amer) BUN/Creatinine Ratio Glucose POC Glucose 247 H Lactate Calcium Total Bilirubin AST ALT Alkaline Phosphatase Total Protein Albumin Globulin Albumin/Globulin Ratio Urine Color Urine Appearance Urine pH Ur Specific [place] Urine Protein Urine Glucose (UA) Urine Ketones Urine Blood Urine Nitrite Urine Bilirubin Urine Urobilinogen Ur Leukocyte Esterase Urine WBC (Auto) Urine RBC (Auto) U Hyaline Cast (Auto) U Epithel Cells (Auto) Urine Bacteria (Auto) Diagnostic Findings XR chest 1V portable IMPRESSION: Pulmonary vascular congestion without overt pulmonary edema. XR hand RT min 3V routine IMPRESSION: 1. Moderate generalized degenerative change. 2.. No acute bony abnormality. 3. Soft tissue edema. Code Status & VTE Plan Code Status Full code VTE Prophylaxis Plan VTE Prophylaxis will be ordered: Yes PG Care Time/CCT Total # of Minutes Spent Total Time Spent with Patient: Total time spent is greater than 50% in coordination of care (as documented) at patient's floor/unit and/or counseling patient:
[2018-10-31] MEDS ORDERED: ARTIFICIAL SALIVA PO PRN (18:43)
[2018-10-31] MEDS ORDERED: ONDANSETRON INJ 2 MG/ML 2 ML VIAL IV PRN (18:43)
[2018-10-31] MEDS ORDERED: ALBUT/IPRATROP 3MG/0.5MG NEB 3 ML VIAL NEB PRN (18:43)
[2018-10-31] MEDS ORDERED: PIPERACILL/TAZOBAC CONSULT ACTIVE PRN (18:43)
[2018-10-31] MEDS ORDERED: ACETAMINOPHEN 325 MG TAB PO PRN (18:43)
[2018-10-31] MEDS ORDERED: PIPERACILLIN/TAZOBACTAM 4.5 GM in DEXTROSE 5% 100 ML IV ONE (19:15)
--- NOTE | 2018-10-31 19:21 | Emergency Department Note ---
Entered by Catarina Pedroza acting as a scribe for Eugenio Garcia MD History of Present Illness General Chief complaint: Hand Injury/Pain Stated complaint: RIGHT HAND PAIN, SHORT OF BREATH Time Seen by Provider: 10/31/18 12:51 Source: patient Mode of arrival: ambulatory History of Present Illness Provider complaint: right hand swelling Onset (ago): day(s) 2 Location: upper extremity (right hand ) and right Pain Consistency: + other (worsening ) Quality: + burning Associated symptoms: + denies other symptoms (leg pain ), + shortness of breath and + other (right hand feels "hot", back and legs burn, light-headedness ) The patient is a 63 year old male with a PMHX of COPD, RA, HTN, and BPH, who presents to the ED with complaints of a worsening of right hand swelling that began 2 days ago. The patient states that his right hand feels hot and it yoo. He states that he is right-handed. The patient states that he had MRSA about 1 year ago and had an operation on his right hand. The patient states that he feels short of breath when ambulating. The patient states that when he ambulates the back of his legs burn. He states that the burning radiates to his abdomen and is followed by light-headedness. The patient states that he has a history of COPD, reflux, and poison. He states that he's had poison on his abdomen and back for 3 months now. The patient states that steroids and cream have not helped with his poison symptoms. The patient states that it is not caused by any new deterrent, foods, or medications. The [facility] states that [facility] [place] [facility] 1 week ago to find the cause of the poison. The patients family member states that the patient stopped smoking about 35 years ago. The patient denies any leg pain. He states that the swelling in his legs is normal. Home Medications Home Medications Medication Instructions Recorded Confirmed Type Lactobacillus acidophilus 1 tab PO QAM 10/31/18 10/31/18 History alprostadil 20 mcg INTRA-CAVERNOSAL UD PRN 10/31/18 10/31/18 History artificial saliva (cmce-lytes) 1 spray PO 5XD PRN 10/31/18 10/31/18 History budesonide-formoterol 2 puff INHALATION BID 10/31/18 10/31/18 History buprenorphine HCl 8 mg SUBLINGUAL BID 10/31/18 10/31/18 History gabapentin 600 mg PO TID 10/31/18 10/31/18 History hydroxyzine HCl 25 mg PO QAM 10/31/18 10/31/18 History hydroxyzine HCl 50 mg PO HS 10/31/18 10/31/18 History losartan 100 mg PO QAM 10/31/18 10/31/18 History mesalamine 0.75 g PO BID 10/31/18 10/31/18 History mesalamine with cleansing wipe 4 g NH HS 10/31/18 10/31/18 History mineral oil-hydrophil petrolat 1 applic TOPICAL BID 10/31/18 10/31/18 History [Aquaphor] pantoprazole 40 mg PO BID 10/31/18 10/31/18 History pramoxine 1 applic NH BID 10/31/18 10/31/18 History prazosin 4 mg PO HS 10/31/18 10/31/18 History propranolol 80 mg PO BID 10/31/18 10/31/18 History sennosides 8.6 mg PO BID 10/31/18 10/31/18 History tiotropium bromide 1 cap INHALATION DAILY 10/31/18 10/31/18 History torsemide 40 mg PO QAM 10/31/18 10/31/18 History triamcinolone acetonide 1 applic TOPICAL BID 10/31/18 10/31/18 History Allergies Allergy/AdvReac Type Severity Reaction Status Date / Time acesulfame Allergy Severe SEVERE Verified 10/31/18 14:51 RASH & VOMIT buprenorphine Allergy Severe SEVERE Verified 10/31/18 14:51 RASH & VOMIT naloxone Allergy Severe SEVERE Verified 10/31/18 14:51 RASH & VOMIT Suboxone Allergy Severe SEVERE Verified 09/14/17 05:40 RASH & VOMIT acetaminophen Allergy Unknown SEE NOTES Verified 10/31/18 14:51 Sulfa (Sulfonamide Allergy Unknown RASH / Verified 10/31/18 14:51 Antibiotics) ITCHINESS quetiapine [From Seroquel] AdvReac Intermediate Nightmare Unverified 10/31/18 14:51 amitriptyline AdvReac Unknown Unknown Unverified 10/31/18 14:51 morphine AdvReac Unknown Unknown Unverified 10/31/18 14:51 Past Med/Surg History Medical History COPD (chronic obstructive pulmonary disease) Chronic pain Hypertension MRSA infection Neuropathy Obesity Family History Other No significant family history Social History Preferred Language: Romanian Communication Ability: Effective Beliefs That Will Affect Care: None Current Living Situation: Spouse Feels Safe at Home: Yes Smoking Status: Former smoker Hx Alcohol Use: No Hx Substance Use: No Review of Systems See HPI for pertinent positives & negatives. and A total of 10 systems reviewed and were otherwise negative Physical Exam Vital Signs Vital Signs - 24 hr 10/31/18 12:46 10/31/18 13:38 10/31/18 13:44 Temperature 36.9 C Temperature Source Oral Sepsis Recent Fever Within 48 Hours No Sepsis New/Unexplained Change in Mental Status No Sepsis Action Taken by Nursing No Action Required Pulse Rate 81 78 Pulse Rate [Right] Pulse Rhythm Regular Pulse Rhythm [Right] Pulse Strength Normal Respiratory Rate 24 22 Respiratory Effort / Characteristics Non-Labored Spontaneous Non-Labored Spontaneous Respiratory Depth Normal Respiratory Pattern Regular Blood Pressure 128/81 Blood Pressure [Right Arm] Blood Pressure Mean 96 Blood Pressure Mean [Right Arm] Blood Pressure Position Sitting Blood Pressure Position [Right Arm] Pulse Oximetry 83 L 88 L 98 Oxygen Delivery Method Room Air Room Air Nebulizer Oxygen Flow Rate 10/31/18 14:09 10/31/18 14:11 10/31/18 15:03 Temperature Temperature Source Sepsis Recent Fever Within 48 Hours Sepsis New/Unexplained Change in Mental Status Sepsis Action Taken by Nursing Pulse Rate Pulse Rate [Right] 79 79 Pulse Rhythm Pulse Rhythm [Right] Regular Pulse Strength Respiratory Rate 22 18 Respiratory Effort / Characteristics Spontaneous Labored Non-Labored Respiratory Depth Normal Respiratory Pattern Regular Blood Pressure Blood Pressure [Right Arm] 132/91 127/69 Blood Pressure Mean Blood Pressure Mean [Right Arm] 104 88 Blood Pressure Position Blood Pressure Position [Right Arm] Lying Pulse Oximetry 87 L 91 91 Oxygen Delivery Method Room Air Nasal Cannula Room Air Oxygen Flow Rate 2 10/31/18 16:00 Temperature Temperature Source Sepsis Recent Fever Within 48 Hours Sepsis New/Unexplained Change in Mental Status Sepsis Action Taken by Nursing Pulse Rate Pulse Rate [Right] 81 Pulse Rhythm Pulse Rhythm [Right] Pulse Strength Respiratory Rate 20 Respiratory Effort / Characteristics Non-Labored Respiratory Depth Normal Respiratory Pattern Regular Blood Pressure Blood Pressure [Right Arm] 117/75 Blood Pressure Mean Blood Pressure Mean [Right Arm] 89 Blood Pressure Position Blood Pressure Position [Right Arm] Pulse Oximetry 92 Oxygen Delivery Method Room Air Oxygen Flow Rate GENERAL: Well appearing, well nourished, NAD, non-toxic. EYE EXAM: Normal conjunctiva. PERRL, no anisocoria and EOM's grossly intact w/o pain. OROPHARYNX: Moist mucous membranes. NECK: Supple, no nuchal rigidity, no adenopathy, non-tender. No signs of meningismus. LUNGS: Clear to auscultation. Normal chest wall mechanics. HEART: NSR, no MRG. ABDOMEN: Abdomen soft, non-tender, normo-active bowel sounds, no masses, no rebound or guarding. BACK: No CVA TTP. SKIN: No bruising. Rash over the bilateral upper extremities, chest and abdomen. UPPER EXTREMITIES: Mild swelling and pain with associated erythema of the right dorsal hand about 4x4 cm, no fluctuance, no drainage, compartment soft. LOWER EXTREMITIES: 2+ symmetrical pedal edema, negative Homans sign bilaterally. No calf pain. NEURO EXAM: A&O x3, cranial nerves II-XII grossly intact, normal speech, moves all 4 extremities on command w/o issue. Course 1304: Past medical records reviewed. The patient was evaluated in room B3. A complete history and physical exam was performed. 1430: I reevaluated the patient at this time and he stated that he is feeling better. I discussed the test results and treatment plan with the patient. He verbally agreed and understood. 1520: I [facility] the [facility] agreed to evaluate the patient for further management. 1531: I reevaluated the patient at this time and updated him on the treatment plan. He verbally agreed and understood. Consultations Consultation #1: I discussed the patient's [facility] He agreed to evaluate the patient for further management. Time: 15:20 Administered Medications Discontinued Medications Albuterol (Duoneb) 6 ml NEB NOW STA Stop: 10/31/18 13:13 Last Admin: 10/31/18 13:36 Dose: 6 ml Documented by: [id number] Vancomycin HCl 2,750 mg/ (Sodium Chloride) 555 mls @ 200 mls/hr IV NOW ONE Stop: 10/31/18 15:56 Last Infusion: 10/31/18 18:28 Dose: 0 mls/hr Documented by: [id number] Admin: 10/31/18 14:10 Dose: 200 mls/hr Documented by: [id number] Methylprednisolone (Solumedrol) 60 mg IV NOW STA Stop: 10/31/18 13:13 Last Admin: 10/31/18 14:10 Dose: 60 mg Documented by: [id number] Medical Decision Making Differential Diagnosis Differential diagnosis: Etiologies such as cellulitis, abscess, osteomyelitis, MRSA infection, DVT, necrotizing fasciitis, dermatitis, drug eruption, as well as others were entertained. Medical Records Attestation: I reviewed the patient's medical records. Home Medications Current Medication List: was personally reviewed by me Laboratory Data Attestation: I reviewed the patient's lab results. Result diagrams: 10/31/18 13:56 10/31/18 13:56 Lab Results 10/31/18 10/31/18 10/31/18 Range/Units 13:56 13:56 13:56 WBC 9.47 (4.8-10.8) K/uL RBC 4.70 (4.7-6.1) M/uL Hgb 11.9 L (14.0-18.0) g/dL Hct 40.1 L (42-52) % MCV 85.3 (80-100) fL MCH 25.3 (25-34) pg MCHC 29.7 L (32-36) g/dL RDW Std Deviation 49.0 H (36.4-46.3) fL RDW Coeff of Fely 15.5 H (11.5-14.5) % Plt Count 101 L (130-400) K/uL MPV 9.9 (7.4-10.4) fL Immature Gran % (Auto) 0.3 % Neut % (Auto) 66.0 % Lymph % (Auto) 16.2 % [place] % (Auto) 11.2 % Eos % (Auto) 5.9 % Baso % (Auto) 0.4 % Immature Gran # (Auto) 0.03 H (0.00-0.02) K/uL Neut # (Auto) 6.25 (1.4-6.5) K/uL Lymph # (Auto) 1.53 (1.2-3.4) K/uL [place] # (Auto) 1.06 H (0.11-0.59) K/uL Eos # (Auto) 0.56 H (0-0.5) K/uL Baso # (Auto) 0.04 (0-0.2) K/uL PT 10.3 (9.0-12.0) Seconds INR 1.0 (0.9-1.1) APTT 26.5 (21.0-31.0) Seconds PTT Ratio 1.0 VBG pH (7.36-7.41) VBG pCO2 (38-50) mmHg VBG pO2 mmHg VBG HCO3 mmol/L VBG O2 Saturation % VBG Base Excess mEq/L Barometric Pressure mm/Hg Sodium 141 (136-145) mmol/L Potassium 4.3 (3.5-5.1) mmol/L Chloride 103 (98-107) mmol/L Carbon Dioxide 33 H (21-32) mmol/L Anion Gap 5.0 (3-11) BUN 15 (7-18) mg/dl Creatinine 1.06 (0.6-1.4) mg/dl Est Cr Clr Drug Dosing 101.1 ml/min Est GFR ( Amer) 86.8 Est GFR (Non-Af Amer) 74.8 BUN/Creatinine Ratio 14.0 (10-20) Glucose 151 H (70-99) mg/dl Lactate (0.4-2.0) mmol/L Calcium 8.2 L (8.5-10.1) mg/dl Total Bilirubin 0.6 (0.2-1) mg/dl AST 18 (15-37) U/L ALT 32 (12-78) U/L Alkaline Phosphatase 129 H (45-117) U/L Total Protein 6.8 (6.4-8.2) gm/dl Albumin 3.2 L (3.4-5.0) gm/dl Globulin 3.6 (2.5-4.0) gm/dl Albumin/Globulin Ratio 0.9 (0.9-2) Urine Color Urine Appearance (Clear) Urine pH (4.5-7.5) Ur Specific Grant (1.000-1.030) Urine Protein (Negative) Urine Glucose (UA) (Negative) Urine Ketones (Negative) Urine Blood (Negative) Urine Nitrite (Negative) Urine Bilirubin (Negative) Urine Urobilinogen (Negative) Ur Leukocyte Esterase (Negative) Urine WBC (Auto) (0-5) /hpf Urine RBC (Auto) (0-4) /hpf U Hyaline Cast (Auto) (0-5) /lpf U Epithel Cells (Auto) (0-5) /lpf Urine Bacteria (Auto) (Negative) 10/31/18 10/31/18 10/31/18 Range/Units 13:56 13:56 14:12 WBC (4.8-10.8) K/uL RBC (4.7-6.1) M/uL Hgb (14.0-18.0) g/dL Hct (42-52) % MCV (80-100) fL MCH (25-34) pg MCHC (32-36) g/dL RDW Std Deviation (36.4-46.3) fL RDW Coeff of Fely (11.5-14.5) % Plt Count (130-400) K/uL MPV (7.4-10.4) fL Immature Gran % (Auto) % Neut % (Auto) % Lymph % (Auto) % [place] % (Auto) % Eos % (Auto) % Baso % (Auto) % Immature Gran # (Auto) (0.00-0.02) K/uL Neut # (Auto) (1.4-6.5) K/uL Lymph # (Auto) (1.2-3.4) K/uL [place] # (Auto) (0.11-0.59) K/uL Eos # (Auto) (0-0.5) K/uL Baso # (Auto) (0-0.2) K/uL PT (9.0-12.0) Seconds INR (0.9-1.1) APTT (21.0-31.0) Seconds PTT Ratio VBG pH 7.31 L (7.36-7.41) VBG pCO2 69 H (38-50) mmHg VBG pO2 45 mmHg VBG HCO3 34 mmol/L VBG O2 Saturation 76.9 % VBG Base Excess 5.5 mEq/L Barometric Pressure 736.0 mm/Hg Sodium (136-145) mmol/L Potassium (3.5-5.1) mmol/L Chloride (98-107) mmol/L Carbon Dioxide (21-32) mmol/L Anion Gap (3-11) BUN (7-18) mg/dl Creatinine (0.6-1.4) mg/dl Est Cr Clr Drug Dosing ml/min Est GFR ( Amer) Est GFR (Non-Af Amer) BUN/Creatinine Ratio (10-20) Glucose (70-99) mg/dl Lactate 1.1 (0.4-2.0) mmol/L Calcium (8.5-10.1) mg/dl Total Bilirubin (0.2-1) mg/dl AST (15-37) U/L ALT (12-78) U/L Alkaline Phosphatase (45-117) U/L Total Protein (6.4-8.2) gm/dl Albumin (3.4-5.0) gm/dl Globulin (2.5-4.0) gm/dl Albumin/Globulin Ratio (0.9-2) Urine Color Yellow Urine Appearance Clear (Clear) Urine pH 6.5 (4.5-7.5) Ur Specific Grant 1.022 (1.000-1.030) Urine Protein 2+ H (Negative) Urine Glucose (UA) Negative (Negative) Urine Ketones Negative (Negative) Urine Blood Negative (Negative) Urine Nitrite Negative (Negative) Urine Bilirubin Negative (Negative) Urine Urobilinogen Negative (Negative) Ur Leukocyte Esterase Negative (Negative) Urine WBC (Auto) 1-5 (0-5) /hpf Urine RBC (Auto) 0-4 (0-4) /hpf U Hyaline Cast (Auto) 1-5 (0-5) /lpf U Epithel Cells (Auto) 10-20 H (0-5) /lpf Urine Bacteria (Auto) Negative (Negative) Prescription Drug Monitoring Prescription Drug Findings: Radiology results as stated below per my review and the radiologist's interpretation: XR chest 1V portable CLINICAL HISTORY: Sepsis. COMPARISON STUDY: Chest CT and chest radiograph March 12, 2016. Chest radiograph June 21, 2016. FINDINGS: There is no pneumothorax or pleural effusion. There is no consolidation to suggest pneumonia. There is pulmonary vascular congestion without overt pulmonary edema. Cardiomegaly is unchanged. IMPRESSION: Pulmonary vascular congestion without overt pulmonary edema. Electronically signed by: Alberto Suarez M.D. 10/31/2018 1:50 PM Blood Pressure Blood Pressure Findings: Normal blood pressure Blood Pressure Disposition: did not require urgent referral MDM Narrative Patient was seen and evaluated the bedside. The patient was presented with concern for some right hand pain. The patient is a prior history of GBS bacteremia and thrombophlebitis. The patient denies any recent trauma but he was having some pain at the left index finger. No evidence of FTS but the patient does have some mild swelling without fluctuance or crepitus of the dorsa l aspect of the right hand. The patient is right-hand dominant. Patient did require an I&D in the past. Patient is a diabetic. The patient's blood work does not show an elevated white count patient does have a mildly elevated blood glucose. Also concern was the patient's known history of COPD who presented with hypoxia with an O2 sat in the low 80s upon presentation. The patient was given 60 mg of methylprednisolone along with DuoNeb's. Patient's chest x-ray does not show any convincing evidence of heart failure although the patient does have some mild lower extremity edema which the patient states is chronic. Given the concern for the patient's hypoxia and COPD with the associated cellulitis I believe he would benefit from inpatient treatment at this time. I did speak the on-call hospitalist agreed to further evaluate treat the patient. The patient did have cultures ordered and was given vancomycin. Impression & Plan Hypoxia, COPD (chronic obstructive pulmonary disease), Cellulitis of hand Discharge Plan Visit Data *Final* Discharge Date/Time: 10/31/18 17:25 Chief Complaint: Hand Injury/Pain Stated Complaint: RIGHT HAND PAIN, SHORT OF BREATH ED Provider: Eugenio Garcia Discharge Problem: Hypoxia, COPD (chronic obstructive pulmonary disease), Cellulitis of hand Patient Disposition: Admitted As Inpatient Discharge Instructions Interventions: ED Discharge Assessment Last Done: 10/31/18 17:25 Discharge Problem: COPD (chronic obstructive pulmonary disease) Qualifiers: COPD type: unspecified COPD Qualified Code(s): J44.9 - Chronic obstructive pulmonary disease, unspecified The scribe's documentation has been prepared under my direction and personally reviewed by me in its entirety. I confirm that the note above accurately reflects all work, treatment, procedures, and medical decision making performed by me.
--- NOTE | 2018-10-31 19:34 | XRay Report ---
XR hand RT min 3V routine CLINICAL HISTORY: hand pain and swelling pain. Edema. COMPARISON: None. DISCUSSION: Moderate generalized degenerative change. No evidence for fracture or dislocation. No juan c dence for bony destructive process. Dorsal soft tissue edema. IMPRESSION: 1. Moderate generalized degenerative change. 2.. No acute bony abnormality. 3. Soft tissue edema. The above report was generated using voice recognition software. It may contain grammatical, syntax or spelling errors. Electronically signed by: Cuco Wilson M.D. 10/31/2018 7:31 PM
--- NOTE | 2018-10-31 20:01 | Pharmacy Report ---
Pharmacy Abx Initial Consult - Date of Service October 31, 2018 - Pharmacy Dosing Scope Date of Consult: 10/31/18 Consultation requested by: Dr. Corado Pharmacy is consulted to continue Vancomycin IV dosing begun in the ED & initiate Zosyn IV dosing therapy, order appropriate labs and adjust drug dose/f requency. - Subjective The patient is a 63 year old M admitted on 10/31/18 16:14 with complaints of his hand burning, swelling and hurting. He was given a loading dose of Vancomycin by ED provider and this was continued on admission by Dr. Corado while also adding Zosyn. Patient has a history of MRSA infections in the past. - Objective Height: 5 ft 11 in Weight: 134.4 kg Vital Signs (Past 12hrs): Vital Signs Temp Pulse Pulse Resp BP BP Pulse Ox 10/31/18 19:13 36.9 C 89 20 147/84 H 90 10/31/18 18:36 85 25 H 156/98 H 91 10/31/18 17:25 79 20 141/84 H 91 10/31/18 16:58 85 20 115/65 92 10/31/18 16:00 81 20 117/75 92 10/31/18 15:03 79 18 127/69 91 10/31/18 14:11 91 10/31/18 14:09 79 22 132/91 87 L 10/31/18 13:44 78 98 10/31/18 13:38 22 88 L 10/31/18 12:46 36.9 C 81 24 128/81 83 L Lab Results (24hrs): Laboratory Tests (24 Hours) 10/31/18 10/31/18 13:56 13:56 WBC 9.47 Neut # (Auto) 6.25 Creatinine 1.06 Est Cr Clr Drug Dosing 101.1 Micro Results: 10/31/18 14:05 Aerobic Blood Culture - Pending Blood Anaerobic Blood Culture - Pending 10/31/18 13:56 Aerobic Blood Culture - Pending Blood Anaerobic Blood Culture - Pending - Assessment & Plan Assessment 63 year old M with cellulitis (R) hand Plan Vancomycin IV * Estimated PK Parameters: Vd 0.55 L/kg, Dean 0.087 hr-1, t1/2 7.96 hr * Loading dose: 2750 mg (~20mg/kg) * Maintenance dose: 1750 mg IV (~13 mg/kg) every 10 hours * Goal trough level for : at least 15 mcg/mL * Trough level ordered prior to 0800 dose on 11/02/18 * A less than traditional dose has been selected due to likelihood of drug accumulation in obese patient. Piperacillin/tazobactam * 4.5 g bolus administered over 30 minutes, then 4.5 g IV extended infusion every 8 hours for CrCl greater than 20 mL/min (4-6 hours later) * Aggressive dosing selected due BMI 35 or more Pharmacy will continue to follow and will adjust dose/frequency as necessary. Thank you.
[2018-10-31] MEDS: TRIAMCINOLONE ACET 0.5% CR 15 GM TUBE TOP SCH (20:06)
[2018-10-31] MEDS: PRAZOSIN HCL 1 MG CAP PO SCH (20:08)
[2018-10-31] MEDS: SENNA 8.6 MG TAB PO SCH (20:09)
[2018-10-31] MEDS: PROPRANOLOL HCL 80 MG TAB PO SCH (20:09)
[2018-10-31] MEDS: PANTOprazole 40 MG TAB PO SCH (20:10)
[2018-10-31] MEDS: GABAPENTIN 300 MG CAP PO SCH (20:10)
[2018-10-31] MEDS: BUPRENORPHINE HCL 8 MG SUBL SL SCH (20:14)
[2018-10-31] MEDS: ALBUT/IPRATROP 3MG/0.5MG NEB 3 ML VIAL NEB SCH (20:49)
[2018-10-31] MEDS: HEPARIN SOD 5,000 UNIT/0.5 ML VIAL SQ SCH (21:45)
[2018-10-31] MEDS: methylPREDNISolone 40 MG in SYRINGE 0 ML IV SCH (21:45)
[2018-11-01] MEDS: VANCOMYCIN HCL 1,750 MG in SODIUM CHLORIDE 0.9% 500 ML IV SCH ×3 (01:11→20:45)
[2018-11-01] MEDS: PIPERACILLIN/TAZOBACTAM 4.5 GM in DEXTROSE 5% 100 ML IV SCH ×4 (01:11→23:46)
[2018-11-01] MEDS: HEPARIN SOD 5,000 UNIT/0.5 ML VIAL SQ SCH ×3 (05:18→20:49)
[2018-11-01] MEDS: ALBUT/IPRATROP 3MG/0.5MG NEB 3 ML VIAL NEB SCH ×4 (07:34→19:43)
[2018-11-01 08:06] LABS: Basophils # (auto) 0.01 K/uL (0-0.2); Basophils % (auto) 0.1 %; Hematocrit (blood only) 41.1 % (42-52); Hemoglobin 12.1 g/dL (14.0-18.0); Immature Granulocytes # (auto) 0.04 K/uL (0.00-0.02); Immature Granulocytes % (auto) 0.4 %; Lymphocytes # (auto) 0.92 K/uL (1.2-3.4); Lymphocytes % (auto) 9.4 %; Mean Corpuscular Hemoglobin 25.2 pg (25-34); Mean Corpuscular Hgb Conc 29.4 g/dL (32-36); Mean Corpuscular Volume 85.4 fL (80-100); Mean Platelet Volume 9.2 fL (7.4-10.4); Monocytes # (auto) 0.55 K/uL (0.11-0.59); Monocytes % (auto) 5.6 %; Neutrophils % (auto) 84.5 %; Platelet Count 187 K/uL (130-400); RDW Coefficient of Variation 15.2 % (11.5-14.5); RDW Standard Deviation 48.3 fL (36.4-46.3); Red Blood Count 4.81 M/uL (4.7-6.1); White Blood Count 9.82 K/uL (4.8-10.8)
[2018-11-01] MEDS: TORSEMIDE 20 MG TAB PO SCH (08:11)
[2018-11-01] MEDS: LOSARTAN POTASSIUM 50 MG TAB PO SCH (08:11)
[2018-11-01] MEDS: PROPRANOLOL HCL 80 MG TAB PO SCH ×2 (08:12→20:40)
[2018-11-01] MEDS: GABAPENTIN 300 MG CAP PO SCH ×3 (08:12→20:40)
[2018-11-01] MEDS: TRIAMCINOLONE ACET 0.5% CR 15 GM TUBE TOP SCH ×2 (08:13→20:41)
[2018-11-01] MEDS: MESALAMINE PO SCH ×2 (08:14→20:41)
[2018-11-01] MEDS: PANTOprazole 40 MG TAB PO SCH ×2 (08:16→20:39)
[2018-11-01] MEDS: SENNA 8.6 MG TAB PO SCH ×2 (08:16→20:39)
[2018-11-01 08:33] LABS: Calcium 8.5 mg/dl (8.5-10.1); Creatinine Clr Calc Pharmacy 90.8 ml/min; Est GFR (African American) 76.2; Est GFR (Non-African American) 65.7; Potassium 4.8 mmol/L (3.5-5.1)
[2018-11-01] MEDS: BUPRENORPHINE HCL 8 MG SUBL SL SCH ×2 (08:41→20:45)
[2018-11-01] MEDS ORDERED: LACTOBACILLUS ACIDOPHILUS PO SCH (09:00)
[2018-11-01] MEDS: methylPREDNISolone 40 MG in SYRINGE 0 ML IV SCH ×2 (11:20→20:45)
--- NOTE | 2018-11-01 13:23 | Hospitalist Progress Note ---
Date of Service November 01, 2018 Assessment & Plan (1) Cellulitis of hand: h/o MRSA infections that have required I/D will cover with Vancomycin as well as Zosyn blood cultures drawn, no growth at this time X ray of the right hand with no bony abnormalities no lymphangitic spread noted at this time follow for any change in WBC, vitals - none today if swelling does not improve then may consider ortho consult however, swelling and pain better today also, has h/o septic thrombophlebitis and GBS bacteremia would like patient to get 1-2 more days of IV antibiotics (2) MRSA infection: h/o multiple MRSA infections have required incision and drainage cover with Vancomcyin, responding well thus far no obvious abscess formation that would need drained (3) COPD exacerbation: increased work of breathing, mild wheezing on exam, some mild hypoxia at time of admission breathing is better change Solu Medrol to Prednisone tomorrow AM, 40mg daily the Zosyn that is used for cellulitis will cover lungs as well (4) Hypoxia: dropped to low 80's on room air due to COPD exacerbation, will treat the condition and hypoxia should improve admits that he gets short of breath at rest and on exertion at home has wondered if he needs oxygen will get two step prior to discharge (5) Hypertension: continue Losartain, Propranolol (6) Neuropathy: continue Gabapentin Subjective patient reports that his right hand is feeling much better, less pain and less swelling he can use the hand which is an improvement no fever or chills, no chest pain breathing is better, he admits he feels better with the oxygen he has been wondering for a while if he would need oxygen at home reviewed labs, CBC and BMP stable no growth on blood cultures at this time Review of Systems Review of Systems: All systems reviewed & are unremarkable except as noted in HPI & below Respiratory: + dyspnea on exertion; no cough and no dyspnea Cardiovascular: no chest pain Musculoskeletal: + joint pain (right hand and wrist, better) and + swelling (right hand and wrist) Physical Exam Constitutional: WD/WN, vitals as above + obese Eyes: PERRL, conjunctivae normal, anicteric sclerae ENMT: external ear and nose normal, oropharynx normal Neck: trachea midline, no thyromegaly Respiratory: normal respiratory effort; no respiratory distress and no labored breathing Auscultation: + diminished lung sounds; no crackles, no rales, no rhonchi and no wheezes Cardiovascular: RRR, no murmur, no edema Gastrointestinal (Abdomen): normal bowel sounds, soft, nontender, no hepatosplenomegaly Musculoskeletal: Head/Neck/Chest: normocephalic and head atraumatic Spine: no thoracic spinal tenderness and no lumbar spinal tenderness Extremities: + joint enlargement (right hand and wrist) and strength 5/5 throughout; no cyanosis and no clubbing Gait: normal gait Skin: + rash (mild erythema over right hand and wrist) and + lesion (multiple lesions, diffuse rash) Neurologic: patellar DTR's 2+ bilat, sensation intact and PERRL, EOMI, accommodation nl, no face palsy, no dysarthria Psychiatric: A+Ox3, euthymic affect Lymphatic: no cervical or axillary lymphadenopathy Results & Data Vital Signs (Past 12 Hours) Vital Signs Temp Pulse Resp BP Pulse Ox 11/01/18 11:24 71 16 97 11/01/18 07:34 76 16 94 11/01/18 07:31 36.5 C 80 16 145/63 H 95 Laboratory Results Laboratory Results - last 24 hr 10/31/18 10/31/18 10/31/18 13:56 13:56 13:56 WBC 9.47 RBC 4.70 Hgb 11.9 L Hct 40.1 L MCV 85.3 MCH 25.3 MCHC 29.7 L RDW Std Deviation 49.0 H RDW Coeff of Fely 15.5 H Plt Count 101 L MPV 9.9 Immature Gran % (Auto) 0.3 Neut % (Auto) 66.0 Lymph % (Auto) 16.2 [place] % (Auto) 11.2 Eos % (Auto) 5.9 Baso % (Auto) 0.4 Immature Gran # (Auto) 0.03 H Neut # (Auto) 6.25 Lymph # (Auto) 1.53 [place] # (Auto) 1.06 H Eos # (Auto) 0.56 H Baso # (Auto) 0.04 PT 10.3 INR 1.0 APTT 26.5 PTT Ratio 1.0 VBG pH VBG pCO2 VBG pO2 VBG HCO3 VBG O2 Saturation VBG Base Excess Barometric Pressure Sodium 141 Potassium 4.3 Chloride 103 Carbon Dioxide 33 H Anion Gap 5.0 BUN 15 Creatinine 1.06 Est Cr Clr Drug Dosing 101.1 Est GFR ( Amer) 86.8 Est GFR (Non-Af Amer) 74.8 BUN/Creatinine Ratio 14.0 Glucose 151 H POC Glucose Lactate Calcium 8.2 L Total Bilirubin 0.6 AST 18 ALT 32 Alkaline Phosphatase 129 H Total Protein 6.8 Albumin 3.2 L Globulin 3.6 Albumin/Globulin Ratio 0.9 Urine Color Urine Appearance Urine pH Ur Specific [place] Urine Protein Urine Glucose (UA) Urine Ketones Urine Blood Urine Nitrite Urine Bilirubin Urine Urobilinogen Ur Leukocyte Esterase Urine WBC (Auto) Urine RBC (Auto) U Hyaline Cast (Auto) U Epithel Cells (Auto) Urine Bacteria (Auto) 10/31/18 10/31/18 10/31/18 13:56 13:56 14:12 WBC RBC Hgb Hct MCV MCH MCHC RDW Std Deviation RDW Coeff of Fely Plt Count MPV Immature Gran % (Auto) Neut % (Auto) Lymph % (Auto) [place] % (Auto) Eos % (Auto) Baso % (Auto) Immature Gran # (Auto) Neut # (Auto) Lymph # (Auto) [place] # (Auto) Eos # (Auto) Baso # (Auto) PT INR APTT PTT Ratio VBG pH 7.31 L VBG pCO2 69 H VBG pO2 45 VBG HCO3 34 VBG O2 Saturation 76.9 VBG Base Excess 5.5 Barometric Pressure 736.0 Sodium Potassium Chloride Carbon Dioxide Anion Gap BUN Creatinine Est Cr Clr Drug Dosing Est GFR ( Amer) Est GFR (Non-Af Amer) BUN/Creatinine Ratio Glucose POC Glucose Lactate 1.1 Calcium Total Bilirubin AST ALT Alkaline Phosphatase Total Protein Albumin Globulin Albumin/Globulin Ratio Urine Color Yellow Urine Appearance Clear Urine pH 6.5 Ur Specific [place] 1.022 Urine Protein 2+ H Urine Glucose (UA) Negative Urine Ketones Negative Urine Blood Negative Urine Nitrite Negative Urine Bilirubin Negative Urine Urobilinogen Negative Ur Leukocyte Esterase Negative Urine WBC (Auto) 1-5 Urine RBC (Auto) 0-4 U Hyaline Cast (Auto) 1-5 U Epithel Cells (Auto) 10-20 H Urine Bacteria (Auto) Negative 10/31/18 11/01/18 11/01/18 20:31 07:40 07:46 WBC 9.82 RBC 4.81 Hgb 12.1 L Hct 41.1 L MCV 85.4 MCH 25.2 MCHC 29.4 L RDW Std Deviation 48.3 H RDW Coeff of Fely 15.2 H Plt Count 187 D MPV 9.2 Immature Gran % (Auto) 0.4 Neut % (Auto) 84.5 Lymph % (Auto) 9.4 [place] % (Auto) 5.6 Eos % (Auto) 0.0 Baso % (Auto) 0.1 Immature Gran # (Auto) 0.04 H Neut # (Auto) 8.30 H Lymph # (Auto) 0.92 L [place] # (Auto) 0.55 Eos # (Auto) 0.00 Baso # (Auto) 0.01 PT INR APTT PTT Ratio VBG pH VBG pCO2 VBG pO2 VBG HCO3 VBG O2 Saturation VBG Base Excess Barometric Pressure Sodium Potassium Chloride Carbon Dioxide Anion Gap BUN Creatinine Est Cr Clr Drug Dosing Est GFR ( Amer) Est GFR (Non-Af Amer) BUN/Creatinine Ratio Glucose POC Glucose 247 H 229 H Lactate Calcium Total Bilirubin AST ALT Alkaline Phosphatase Total Protein Albumin Globulin Albumin/Globulin Ratio Urine Color Urine Appearance Urine pH Ur Specific [place] Urine Protein Urine Glucose (UA) Urine Ketones Urine Blood Urine Nitrite Urine Bilirubin Urine Urobilinogen Ur Leukocyte Esterase Urine WBC (Auto) Urine RBC (Auto) U Hyaline Cast (Auto) U Epithel Cells (Auto) Urine Bacteria (Auto) 11/01/18 07:46 WBC RBC Hgb Hct MCV MCH MCHC RDW Std Deviation RDW Coeff of Fely Plt Count MPV Immature Gran % (Auto) Neut % (Auto) Lymph % (Auto) [place] % (Auto) Eos % (Auto) Baso % (Auto) Immature Gran # (Auto) Neut # (Auto) Lymph # (Auto) [place] # (Auto) Eos # (Auto) Baso # (Auto) PT INR APTT PTT Ratio VBG pH VBG pCO2 VBG pO2 VBG HCO3 VBG O2 Saturation VBG Base Excess Barometric Pressure Sodium 138 Potassium 4.8 Chloride 103 Carbon Dioxide 33 H Anion Gap 3.0 BUN 13 Creatinine 1.18 Est Cr Clr Drug Dosing 90.8 Est GFR ( Amer) 76.2 Est GFR (Non-Af Amer) 65.7 BUN/Creatinine Ratio 11.0 Glucose 227 H POC Glucose Lactate Calcium 8.5 Total Bilirubin AST ALT Alkaline Phosphatase Total Protein Albumin Globulin Albumin/Globulin Ratio Urine Color Urine Appearance Urine pH Ur Specific [place] Urine Protein Urine Glucose (UA) Urine Ketones Urine Blood Urine Nitrite Urine Bilirubin Urine Urobilinogen Ur Leukocyte Esterase Urine WBC (Auto) Urine RBC (Auto) U Hyaline Cast (Auto) U Epithel Cells (Auto) Urine Bacteria (Auto) Medications Administered Current Inpatient Medications Acetaminophen (Tylenol) 650 mg PO Q4H PRN PRN Reason: pain/fever Stop: 11/30/18 18:42 Albuterol (Duoneb) 3 ml NEB Q2R PRN PRN Reason: Dyspnea Stop: 11/30/18 18:42 Albuterol (Duoneb) 3 ml NEB QIDR [facility] Stop: 11/30/18 18:59 Last Admin: 11/01/18 11:24 Dose: 3 ml Documented by: Buprenorphine HCl (Subutex) 8 mg SL BID [facility] Stop: 11/30/18 20:59 Last Admin: 11/01/18 08:41 Dose: 8 mg Documented by: Gabapentin (Neurontin) 600 mg PO TID [facility] Stop: 11/30/18 20:59 Last Admin: 11/01/18 08:12 Dose: 600 mg Documented by: Heparin Sodium (Porcine) (Heparin Sodium (Porcine)) 5,000 units SQ Q8 [facility] Stop: 11/30/18 21:59 Last Admin: 11/01/18 05:18 Dose: 5,000 units Documented by: Hydroxyzine HCl (Vistaril) 25 mg PO QAM [facility] Stop: 12/01/18 08:59 Last Admin: 11/01/18 08:17 Dose: 25 mg Documented by: Hydroxyzine HCl (Vistaril) 50 mg PO HS [facility] Stop: 11/30/18 20:59 Last Admin: 10/31/18 20:07 Dose: 50 mg Documented by: Methylprednisolone 40 mg/ (Syringe) 0.64 mls @ 1.5 mls/min IV Q12H [facility] Stop: 11/01/18 23:59 Last Admin: 11/01/18 11:20 Dose: 1.5 mls/min Documented by: Piperacillin Sod/Tazobactam (Sod 4.5 gm/ Dextrose) 120 mls @ 30 mls/hr IV Q8H [facility] Stop: 11/11/18 00:00 Last Infusion: 11/01/18 12:06 Dose: Infused Documented by: Vancomycin HCl 1,750 mg/ (Sodium Chloride) 535 mls @ 200 mls/hr IV Q10H [facility] Stop: 11/11/18 01:59 Last Admin: 11/01/18 12:06 Dose: 186 mls/hr Documented by: Losartan Potassium (Cozaar) 100 mg PO QAM [facility] Stop: 12/01/18 08:59 Last Admin: 11/01/18 08:11 Dose: 100 mg Documented by: Miscellaneous (Order Awaiting Action) 1 ea N/A QS [facility] Stop: 11/30/18 19:29 Last Admin: 11/01/18 08:19 Dose: Not Given Documented by: Miscellaneous (Order Awaiting Action) 1 ea N/A QS [facility] Stop: 11/30/18 19:44 Last Admin: 11/01/18 08:20 Dose: Not Given Documented by: Miscellaneous (Order Awaiting Action) 1 ea N/A QS [facility] Stop: 11/30/18 19:29 Last Admin: 11/01/18 08:20 Dose: Not Given Documented by: Miscellaneous Information (Consult) 1 ea N/A UD PRN PRN Reason: Consult Stop: 11/30/18 13:09 Miscellaneous Information (Consult) 1 ea N/A UD PRN PRN Reason: Consult Stop: 11/30/18 18:42 Mesalamine~Non- Formulary Patient's Own Med 2 ea PO BID [facility] Stop: 12/01/18 08:59 Last Admin: 11/01/18 08:14 Dose: 0.375 mg Documented by: Ondansetron HCl (Zofran) 4 mg IV Q6H PRN PRN Reason: Nausea Stop: 11/30/18 18:42 Pantoprazole Sodium (Protonix) 40 mg PO BID [facility] Stop: 11/30/18 20:59 Last Admin: 11/01/18 08:16 Dose: 40 mg Documented by: Prazosin HCl (Prazosin Hcl) 4 mg PO HS [facility] Stop: 11/30/18 20:59 Last Admin: 10/31/18 20:08 Dose: 4 mg Documented by: Prednisone (Prednisone) 40 mg PO QAM [facility] Stop: 12/02/18 08:59 Propranolol HCl (Inderal) 80 mg PO BID [facility] Stop: 11/30/18 20:59 Last Admin: 11/01/18 08:12 Dose: 80 mg Documented by: Sennosides (Senokot) 8.6 mg PO BID [facility] Stop: 11/30/18 20:59 Last Admin: 11/01/18 08:16 Dose: 8.6 mg Documented by: Torsemide (Demadex) 40 mg PO QAM [facility] Stop: 12/01/18 08:59 Last Admin: 11/01/18 08:11 Dose: 40 mg Documented by: Triamcinolone Acetonide (Kenalog 0.5%) 1 appln TOP BID [facility] Stop: 11/30/18 20:59 Last Admin: 11/01/18 08:13 Dose: 1 appln Documented by: PG Care Time/CCT Total # of Minutes Spent Total Time Spent with Patient: Total time spent is greater than 50% in coordination of care (as documented) at patient's floor/unit and/or counseling patient:
[2018-11-01] MEDS: INSULIN ASPART 100 UNITS/ML 3 ML PEN SC SCH ×2 (18:11→20:47)
[2018-11-01] MEDS: PRAZOSIN HCL 1 MG CAP PO SCH (20:36)
[2018-11-01] MEDS: MESALAMINE 4 GM/60 ML ENEMA PR SCH (20:42)
[2018-11-01] MEDS ORDERED: INSULIN ASPART 100 UNITS/ML 3 ML PEN SC SCH (21:00)
[2018-11-02] MEDS: HEPARIN SOD 5,000 UNIT/0.5 ML VIAL SQ SCH ×3 (05:43→20:45)
[2018-11-02] MEDS: LOSARTAN POTASSIUM 50 MG TAB PO SCH (07:29)
[2018-11-02] MEDS ORDERED: VANCOMYCIN TROUGH ONE (07:30)
[2018-11-02] MEDS: PROPRANOLOL HCL 80 MG TAB PO SCH ×2 (07:30→20:40)
[2018-11-02] MEDS: TRIAMCINOLONE ACET 0.5% CR 15 GM TUBE TOP SCH ×2 (07:30→20:46)
[2018-11-02] MEDS: TORSEMIDE 20 MG TAB PO SCH (07:30)
[2018-11-02] MEDS: MESALAMINE PO SCH ×2 (07:31→20:48)
[2018-11-02] MEDS: GABAPENTIN 300 MG CAP PO SCH ×3 (07:31→20:40)
[2018-11-02] MEDS: PANTOprazole 40 MG TAB PO SCH ×2 (07:32→20:42)
[2018-11-02] MEDS: predniSONE 20 MG TAB PO SCH (07:32)
[2018-11-02] MEDS: BUPRENORPHINE HCL 8 MG SUBL SL SCH ×2 (07:37→20:58)
[2018-11-02] MEDS: SENNA 8.6 MG TAB PO SCH ×2 (07:38→20:39)
[2018-11-02] MEDS: ALBUT/IPRATROP 3MG/0.5MG NEB 3 ML VIAL NEB SCH ×4 (07:45→19:21)
[2018-11-02] MEDS: VANCOMYCIN HCL 1,750 MG in SODIUM CHLORIDE 0.9% 500 ML IV SCH ×2 (07:48→22:04)
[2018-11-02 08:19] LABS: Creatinine Clr Calc Pharmacy 95.7 ml/min; Est GFR (African American) 81.2
[2018-11-02] MEDS: PIPERACILLIN/TAZOBACTAM 4.5 GM in DEXTROSE 5% 100 ML IV SCH ×3 (08:24→23:31)
--- NOTE | 2018-11-02 08:30 | Pharmacy Report ---
Pharmacy Abx Dose Progress Nt - Date of Service November 02, 2018 - Pharmacy Dosing Scope The patient is currently receiving the following antimicrobial agents per Pharmacy consult: Vancomycin 1750 mg IV every 10 hours - Objective Vital Signs (Past 12hrs): Vital Signs Temp Pulse Resp BP Pulse Ox 11/02/18 07:14 36.7 C 81 18 155/75 H 94 11/01/18 23:18 36.8 C 84 20 124/71 92 Lab Results (24hrs): Laboratory Tests (24 Hours) 11/02/18 11/02/18 11/01/18 07:27 07:27 07:46 Creatinine 1.12 1.18 Est Cr Clr Drug Dosing 95.7 90.8 Vancomycin Trough 18.0 Micro Results: Microbiology 10/31/18 14:05 Blood Anaerobic Blood Culture - Final 10/31/18 14:05 Blood Aerobic Blood Culture - Preliminary 10/31/18 14:05 Blood No growth in Aerobic bottle after 24 hours. 10/31/18 13:56 Blood Aerobic Blood Culture - Preliminary 10/31/18 13:56 Blood Anaerobic Blood Culture - Preliminary No growth in Aerobic bottle after 24 hours. No growth in Anaerobic bottle after 24 hours. - Risk Factors for Resistance * History of infection with a multidrug-resistant organism: MRSA - skin structure infection of hand about a year ago - Assessment & Plan Assessment 63 year old M receiving IV Vancomycin and Zosyn for treatment of cellulitis of hand, hx MRSA Day # 3 of antimicrobial therapy Plan Vancomycin IV * Trough level of 18 mcg/mL is therapeutic * Due to morbid obesity and patient accumulating drug in the past, Change to 1750 mg IV every 14 hours in anticipation of accumulation * Goal trough level for cellulitis : 15 to 20 mcg/mL * Trough level ordered for: 11/04/18 * Less than traditional dose and extended dosing interval selected due to likelihood of drug accumulation in obese patient. Piperacillin/tazobactam * Continue 4.5 g IV extended infusion every 8 hours for CrCl greater than 20 mL/min * Higher dose for patient with BMI > 35kg/m2 Pharmacy will continue to follow and will adjust dose/frequency as necessary. Thank you.
[2018-11-02 08:32] LABS: Estimated Average Glucose 183 mg/dl
[2018-11-02] MEDS: INSULIN ASPART 100 UNITS/ML 3 ML PEN SC SCH ×4 (08:42→20:43)
[2018-11-02] MEDS: METFORMIN HCL 500 MG TAB PO SCH (16:41)
[2018-11-02] MEDS: PRAZOSIN HCL 1 MG CAP PO SCH (20:39)
[2018-11-02] MEDS: MESALAMINE 4 GM/60 ML ENEMA PR SCH (20:48)
[2018-11-02] MEDS ORDERED: KETOROLAC TROMETHAMINE 15 MG/ML VIAL IV ONE (21:50)
--- NOTE | 2018-11-02 21:54 | Hospitalist Progress Note ---
Date of Service November 02, 2018 Assessment & Plan (1) Cellulitis of hand: h/o MRSA infections that have required I&D continue Vancomycin and Zosyn blood cultures drawn, no growth at two days X ray of the right hand with no bony abnormalities no lymphangitic spread noted no fever and WBC stable if swelling does not improve then may consider ortho consult however, swelling and pain better today also, has h/o septic thrombophlebitis and GBS bacteremia would like patient to have one more day of IV antibiotics prior to changing to PO (2) MRSA infection: h/o multiple MRSA infections have required incision and drainage cover with Vancomcyin, responding well thus far no obvious abscess formation that would need drained (3) COPD exacerbation: increased work of breathing, mild wheezing on exam, some mild hypoxia at time of admission breathing is much better, back to baseline according to patient Prednisone 40mg daily for two more days, no taper the Zosyn that is used for cellulitis will cover lungs as well (4) Hypoxia: dropped to low 80's on room air due to COPD exacerbation, will treat the condition and hypoxia should improve admits that he gets short of breath at rest and on exertion at home has wondered if he needs oxygen two step ordered today, hopeful to get it tomorrow AM to get home oxygen (5) Hypertension: continue Losartain, Propranolol (6) Neuropathy: continue Gabapentin (7) DM type 2 (diabetes mellitus, type 2): new diagnosis, HbA1c is 8% cover with Novolog SS, high sugars due to Prednisone will start on Metformin consult family educator to educate patient on proper diet (8) Bullous pemphigoid: [facility] could be related to Gabapentin, Losartan or Mesalamine will plan to follow up with Dermatology in [facility] Subjective patient says his hand continues to feel better, less pain, less swelling, no fevers his breathing is back to baseline, he feels like he probably has needed oxygen for some time as he feels so good on it discussed elevated sugars in the 300s and his HbA1c of 8.0%, this diagnoses him with DM type II he seemed accepting of this diagnosis admits that he does not watch what he eats, has been eating candy bars in the hospital he had some in his drawer, handed them over to me told him that we could start low dose Metformin while in the hospital, he will not go home on the Novolog he is open to speaking with family educator about proper diet he says he will not be able to exercise due to his bilateral knee pain and difficulty breathing Review of Systems Review of Systems: All systems reviewed & are unremarkable except as noted in HPI & below Constitutional: no fever, no fatigue and no weakness Respiratory: + dyspnea on exertion; no cough, no dyspnea and no sputum production Musculoskeletal: + swelling (right hand/wrist) Physical Exam Constitutional: WD/WN, vitals as above + obese Eyes: PERRL, conjunctivae normal, anicteric sclerae ENMT: external ear and nose normal, oropharynx normal Neck: trachea midline, no thyromegaly Respiratory: normal respiratory effort; no respiratory distress and no labored breathing Auscultation: + diminished lung sounds; no crackles, no rales, no rhonchi and no wheezes Cardiovascular: RRR, no murmur, no edema Gastrointestinal (Abdomen): normal bowel sounds, soft, nontender, no hepatosplenomegaly Musculoskeletal: Head/Neck/Chest: normocephalic and head atraumatic Spine: no thoracic spinal tenderness and no lumbar spinal tenderness Extremities: + joint enlargement (right hand and wrist) and strength 5/5 throughout; no cyanos is and no clubbing Gait: normal gait Skin: + rash (minimal erythema, almost gone) and + lesion (multiple lesions, diffuse rash) Neurologic: patellar DTR's 2+ bilat, sensation intact and PERRL, EOMI, accommodation nl, no face palsy, no dysarthria Psychiatric: A+Ox3, euthymic affect Lymphatic: no cervical or axillary lymphadenopathy Results & Data Vital Signs (Past 12 Hours) Vital Signs Temp Pulse Resp BP Pulse Ox 11/02/18 19:25 91 H 18 90 11/02/18 15:37 90 18 92 11/02/18 15:01 36.8 C 79 18 156/79 H 94 Laboratory Results Laboratory Results - last 24 hr 11/02/18 11/02/18 11/02/18 07:27 07:27 07:27 Creatinine 1.12 Est Cr Clr Drug Dosing 95.7 Est GFR ( Amer) 81.2 Est GFR (Non-Af Amer) 70.0 POC Glucose Estimat Average Glucose 183 Hemoglobin A1c 8.0 H Vancomycin Trough 18.0 11/02/18 11/02/18 11/02/18 07:58 07:59 11:49 Creatinine Est Cr Clr Drug Dosing Est GFR ( Amer) Est GFR (Non-Af Amer) POC Glucose 301 H* 315 H* 224 H Estimat Average Glucose Hemoglobin A1c Vancomycin Trough 11/02/18 16:40 Creatinine Est Cr Clr Drug Dosing Est GFR ( Amer) Est GFR (Non-Af Amer) POC Glucose 219 H Estimat Average Glucose Hemoglobin A1c Vancomycin Trough Medications Administered Current Inpatient Medications Acetaminophen (Tylenol) 650 mg PO Q4H PRN PRN Reason: pain/fever Stop: 11/30/18 18:42 Last Admin: 11/02/18 20:39 Dose: 650 mg Documented by: Albuterol (Duoneb) 3 ml NEB Q2R PRN PRN Reason: Dyspnea Stop: 11/30/18 18:42 Albuterol (Duoneb) 3 ml NEB QIDR [facility] Stop: 11/30/18 18:59 Last Admin: 11/02/18 19:21 Dose: 3 ml Documented by: Buprenorphine HCl (Subutex) 8 mg SL BID [facility] Stop: 11/30/18 20:59 Last Admin: 11/02/18 20:58 Dose: 8 mg Documented by: Gabapentin (Neurontin) 600 mg PO TID [facility] Stop: 11/30/18 20:59 Last Admin: 11/02/18 20:40 Dose: 600 mg Documented by: Heparin Sodium (Porcine) (Heparin Sodium (Porcine)) 5,000 units SQ Q8 [facility] Stop: 11/30/18 21:59 Last Admin: 11/02/18 20:45 Dose: 5,000 units Documented by: Hydroxyzine HCl (Vistaril) 25 mg PO QAM [facility] Stop: 12/01/18 08:59 Last Admin: 11/02/18 07:33 Dose: 25 mg Documented by: Hydroxyzine HCl (Vistaril) 50 mg PO HS [facility] Stop: 11/30/18 20:59 Last Admin: 11/02/18 20:42 Dose: 50 mg Documented by: Piperacillin Sod/Tazobactam (Sod 4.5 gm/ Dextrose) 120 mls @ 30 mls/hr IV Q8H [facility] Stop: 11/11/18 00:00 Last Infusion: 11/02/18 21:21 Dose: Infused Documented by: Vancomycin HCl 1,750 mg/ (Sodium Chloride) 535 mls @ 200 mls/hr IV Q14H COUNTS INCLUDE 234 BEDS AT THE [facility] Stop: 11/12/18 21:59 Insulin Aspart (Novolog Flexpen) 0 units SC ACHS COUNTS INCLUDE 234 BEDS AT THE [facility] Stop: 12/01/18 17:59 Last Admin: 11/02/18 20:43 Dose: 2 units Documented by: Losartan Potassium (Cozaar) 100 mg PO QAM [facility]S INCLUDE 234 BEDS AT THE [facility] Stop: 12/01/18 08:59 Last Admin: 11/02/18 07:29 Dose: 100 mg Documented by: Mesalamine (Rowasa) 4 gm [place] HS COUNTS INCLUDE 234 BEDS AT THE [facility] Stop: 12/01/18 20:59 Last Admin: 11/02/18 20:48 Dose: Not Given Documented by: Metformin HCl (Glucophage) 500 mg PO BIDM COUNTS INCLUDE 234 BEDS AT THE [facility] Stop: 12/02/18 16:59 Last Admin: 11/02/18 16:41 Dose: 500 mg Documented by: Miscellaneous (Order Awaiting Action) 1 ea N/A QS [facility]S [facility]CLUDE 234 BEDS AT THE [facility] Stop: 11/30/18 19:29 Last Admin: 11/02/18 16:37 Dose: Not Given Documented by: Miscellaneous (Order Awaiting Action) 1 ea N/A QS [facility]S INCLUDE 234 BEDS AT THE [facility] Stop: 11/30/18 19:29 Last Admin: 11/02/18 16:37 Dose: Not Given Documented by: Miscellaneous Information (Consult) 1 ea N/A UD PRN PRN Reason: Consult Stop: 11/30/18 13:09 Miscellaneous Information (Consult) 1 ea N/A UD PRN PRN Reason: Consult Stop: 11/30/18 18:42 Mesalamine~Non- Formulary Patient's Own Med 2 ea PO BID [facility]CLUDE 234 BEDS AT THE [facility] Stop: 12/01/18 08:59 Last Admin: 11/02/18 20:48 Dose: 1 cap Documented by: Ondansetron HCl (Zofran) 4 mg IV Q6H PRN PRN Reason: Nausea Stop: 11/30/18 18:42 Pantoprazole Sodium (Protonix) 40 mg PO BID [facility]CLUDE 234 BEDS AT [facility] Stop: 11/30/18 20:59 Last Admin: 11/02/18 20:42 Dose: 40 mg Documented by: Prazosin HCl (Prazosin Hcl) 4 mg PO HS [facility]S [facility]CLUDE 234 BEDS AT [facility] Stop: 11/30/18 20:59 Last Admin: 11/02/18 20:39 Dose: 4 mg Documented by: Prednisone (Prednisone) 40 mg PO QAM [facility] Stop: 12/02/18 08:59 Last Admin: 11/02/18 07:32 Dose: 40 mg Documented by: Propranolol HCl (Inderal) 80 mg PO BID [facility] Stop: 11/30/18 20:59 Last Admin: 11/02/18 20:40 Dose: 80 mg Documented by: Sennosides (Senokot) 8.6 mg PO BID [facility] Stop: 11/30/18 20:59 Last Admin: 11/02/18 20:39 Dose: 8.6 mg Documented by: Torsemide (Demadex) 40 mg PO QAM COUNTS INCLUDE 234 BEDS AT THE [facility] Stop: 12/01/18 08:59 Last Admin: 11/02/18 07:30 Dose: 40 mg Documented by: Triamcinolone Acetonide (Kenalog 0.5%) 1 appln TOP BID COUNTS INCLUDE 234 BEDS AT THE [facility] Stop: 11/30/18 20:59 Last Admin: 11/02/18 20:46 Dose: 1 appln Documented by: PG Care Time/CCT Total # of Minutes Spent Total Time Spent with Patient: Total time spent is greater than 50% in coordination of care (as documented) at patient's floor/unit and/or counseling patient:
[2018-11-03] MEDS: HEPARIN SOD 5,000 UNIT/0.5 ML VIAL SQ SCH (05:31)
[2018-11-03] MEDS: PIPERACILLIN/TAZOBACTAM 4.5 GM in DEXTROSE 5% 100 ML IV SCH (07:39)
[2018-11-03] MEDS: TORSEMIDE 20 MG TAB PO SCH (07:40)
[2018-11-03] MEDS: PROPRANOLOL HCL 80 MG TAB PO SCH (07:40)
[2018-11-03] MEDS: LOSARTAN POTASSIUM 50 MG TAB PO SCH (07:40)
[2018-11-03] MEDS: MESALAMINE PO SCH (07:41)
[2018-11-03] MEDS: GABAPENTIN 300 MG CAP PO SCH (07:41)
[2018-11-03] MEDS: TRIAMCINOLONE ACET 0.5% CR 15 GM TUBE TOP SCH (07:41)
[2018-11-03] MEDS: predniSONE 20 MG TAB PO SCH (07:41)
[2018-11-03] MEDS: SENNA 8.6 MG TAB PO SCH (07:42)
[2018-11-03] MEDS: BUPRENORPHINE HCL 8 MG SUBL SL SCH (07:42)
[2018-11-03] MEDS: PANTOprazole 40 MG TAB PO SCH (07:42)
[2018-11-03] MEDS: ALBUT/IPRATROP 3MG/0.5MG NEB 3 ML VIAL NEB SCH ×2 (07:48→14:20)
[2018-11-03 08:21] LABS: Creatinine Clr Calc Pharmacy 86.4 ml/min; Est GFR (African American) 71.8; Est GFR (Non-African American) 61.9
[2018-11-03] MEDS: METFORMIN HCL 500 MG TAB PO SCH (08:25)
[2018-11-03] MEDS: INSULIN ASPART 100 UNITS/ML 3 ML PEN SC SCH ×2 (08:26→12:07)
[2018-11-03] MEDS: VANCOMYCIN HCL 1,750 MG in SODIUM CHLORIDE 0.9% 500 ML IV SCH (12:05)
[2018-11-04] MEDS ORDERED: VANCOMYCIN TROUGH ONE (01:30)
--- NOTE | 2018-11-05 08:44 | Discharge Summary ---
Date of Service November 03, 2018 Admission HPI Per Admitting Provider 63 [facility], presents to the ED today c/o right hand pain and swelling of about 3 days duration. The patient has a history of MRSA skin infections, has required I&D on three separate occasions, has required surgery on the right hand in the past. He denies any recent injury to the right hand, has not noticed a breakdown in the skin in that area. However, he has been experiencing a diffuse vesicular rash the past few weeks, was recently biopsied and he was told to follow up with dermatology in [facility]. He does not recall the name of the rash, will try to get re sults. He has not been experiencing any fever or chills, his appetite has been stable. The hand is tender to touch and tender when he tries to flex or extend or move his fingers. No red streaks have been seen going up the arm. His breathing is a little more labored than normal for him. He has a non-productive cough. 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 He denies any chest pain or pressure. He has been eating well, moving his bowels, no diarrhea. Has some occasional hemorrhoids. In the ED he was slightly hypoxic on room air but in no distress. His other vitals were stable, no fever, WBC normal. Cr and electrolytes stable. VBG showed a pH of 7.31 and CO in the 60's. He said his breathing was better after dose of Solu Medrol and Duoneb and he was given a dose of Vancomycin for the possible hand infection. Principal Diagnosis Right hand cellulitis Discharge Exam Constitutional WD/WN, vitals as above + obese Eyes PERRL, conjunctivae normal, anicteric sclerae ENMT external ear and nose normal, oropharynx normal Neck trachea midline, no thyromegaly Respiratory normal respiratory effort; no respiratory distress and no labored breathing Auscultation: + diminished lung sounds; no crackles, no rales, no rhonchi and no wheezes Cardiovascular RRR, no murmur, no edema Gastrointestinal (Abdomen) normal bowel sounds, soft, nontender, no hepatosplenomegaly Musculoskeletal Head/Neck/Chest: normocephalic and head atraumatic Spine: no thoracic spinal tenderness and no lumbar spinal tenderness Extremities: + joint enlargement (right hand and wrist) and strength 5/5 throughout; no cyanosis and no clubbing Gait: normal gait Skin + rash (erythema resolved, still with some swelling) and + lesion (multiple lesions, diffuse rash) Neurologic patellar DTR's 2+ bilat, sensation intact and PERRL, EOMI, accommodation nl, no face palsy, no dysarthria Psychiatric A+Ox3, euthymic affect Lymphatic no cervical or axillary lymphadenopathy Discharge Data Allergies Allergy/AdvReac Type Severity Reaction Status Date / Time acesulfame Allergy Severe SEVERE Verified 10/31/18 14:51 RASH & VOMIT buprenorphine Allergy Severe SEVERE Verified 11/02/18 21:55 RASH & VOMIT naloxone Allergy Severe SEVERE Verified 11/02/18 10:15 RASH & VOMIT Suboxone Allergy Severe SEVERE Verified 09/14/17 05:40 RASH & VOMIT Sulfa (Sulfonamide Allergy Intermediate RASH / Verified 11/02/18 21:55 Antibiotics) ITCHINESS acetaminophen Allergy Unknown SEE NOTES Verified 10/31/18 14:51 quetiapine [From Seroquel] AdvReac Intermediate Nightmare Unverified 10/31/18 14:51 amitriptyline AdvReac Unknown Unknown Unverified 10/31/18 14:51 morphine AdvReac Unknown Unknown Unverified 10/31/18 14:51 Consultations 10/31/18 15:04 ED Decision to Admit Stat 10/31/18 15:46 ED Decision to Admit Stat Hospital Course (1) Cellulitis of hand: h/o MRSA infections that have required I&D treated with Vancomycin and Zosyn for 4 days blood cultures drawn, no growth at four days X ray of the right hand with no bony abnormalities no lymphangitic spread noted no fever and WBC stable swelling, pain and erythema all improved still some swelling but skin soft, no signs of abscess on exam d/c home on Augmentin and Doxycycline follow up with PCP (2) MRSA infection: h/o multiple MRSA infections have required incision and drainage treated with Vancomcyin, responded well no obvious abscess formation that would need drained (3) COPD exacerbation: increased work of breathing, mild wheezing on exam, some mild hypoxia at time of admission breathing is much better, back to baseline according to patient Steroids for 4 days, no need for further Prednisone in reality, his breathing on admission was likely close to baseline he felt much better on oxygen suspect that he may have been requiring oxygen for some time two step showed 2L continuous and 3L on exertion oxygen delivered to his room (4) Hypoxia: likely chronic hypoxic respiratory failure, due to long standing COPD dropped to low 80's on room air in the Emergency room admits that he gets short of breath at rest and on exertion at home has wondered if he needs oxygen two step ordered, 2L at rest, 3L on exertion (5) Hypertension: continue Losartan, Propranolol (6) Neuropathy: continue Gabapentin (7) DM type 2 (diabetes mellitus, type 2): new diagnosis, HbA1c is 8% cover with Novolog SS, high sugars due to Prednisone start on Metformin 500mg BID, can likely titrate up over next two weeks consulted sales & service associate to educate patient on proper diet he says he is motivated to eat better exercise is impossible due to bilateral knee osteoarthritis, obesity and difficulty breathing (8) Bullous pemphigoid: new diagnosis made on biopsy in the [place] [facility] could be related to Gabapentin, Losartan or Mesalamine will plan to follow up with Dermatology in [facility] he said he thought there was some mild improvement on Prednisone will hold on continuing this because I would want him to see Dermatology he said he has had the rash for 3 months so certainly not urgent Total Time Total Time Spent Total Time Spent (In Minutes): 40 minutes Total Time Includes: Examination of the Patient, Discharge Planning and Medication Reconciliation Discharge Plan Discharge Items Patient Disposition: Home - Home Health Services Reason For Visit: COPD EXACERBATION Discharge Diagnosis: COPD exacerbation Right hand cellulitis Chronic hypoxia Bullous pemphigoid Diabetes type II Condition on Discharge: Good Health Concerns: - you need to wear your oxygen at all times, suspect that you have had low oxygen levels for some time, the oxygen should make you feel better - complete course of antibiotics for cellulitis - you need to be compliant with a diabetic diet, review instructions from sales & service associate - follow up soon with dermatology at [facility] for the bullous pemphigoid Goals: - improved disease control as far as diabetes - follow up with dermatology to improve rash Activity: Resume your previous activity Non-emergency contact: Primary Care Provider Call non-emergency contact if: you have any medication questions, your symptoms worsen, your pain is not controlled and you have a fever Follow-up/Referrals: Doc Morejon MD [Primary Care Provider] - Diet: Carb Consistent or DM2 Addtl Attending Provider Instructions: Medications: - AMOXICILLIN/CLAVULONATE: take twice a day for 10 more days to treat cellulitis - DOXYCYCLINE: 100mg twice a day for 10 more days to treat cellulitis - METFORMIN: 500mg twice a day for treatment of diabetes, this is starting dose, will likely need to increase to 1000mg twice a day, defer to PCP common side effect is loose stools, should resolve with time as you adjust to medication COPD with mild exacerbation, suspected chronic hypoxia (low oxygen) lungs are clear, no wheezing, no further steroids needed continue maintenance inhalers prescribed oxygen, you need to wear 2L at all times and increase to 3L on exertion Right hand cellulitis: improved with three days of IV antibiotics will transition to Amoxicillin and Doxycycline for 10 more days no evidence of abscess or bone involvement Diabetes type II new diagnosis, started on Metformin please follow instructions provided to you by sales & service associate as we discussed, you can improve control greatly just through dietary changes follow up with PCP Bullous pemphigoid: you need to schedule follow up with dermatology in [place] at earliest convenience they will be able to determine plan for treatment FOLLOW UP - call for appt with Dr. Morejon within one week of discharge Pending Studies at Discharge: No Stand-Alone Forms: My [facility] Medications and DC Order Prescriptions: New metformin [Glucophage] 500 mg Tablet 500 mg PO BIDM 30 Days Qty: 60 RF: 0 amoxicillin-pot clavulanate 875-125 mg tablet 1 tab PO BID Qty: 20 RF: 0 doxycycline hyclate 100 mg tablet 100 mg PO BID 10 Days Qty: 20 RF: 0 Continued sennosides 8.6 mg Tablet 8.6 mg PO BID RF: 0 propranolol 80 mg Tablet 80 mg PO BID RF: 0 torsemide 20 mg Tablet 40 mg PO QAM RF: 0 triamcinolone acetonide 0.5 % Cream 1 applic TOPICAL BID RF: 0 Aquaphor Ointment 1 applic TOPICAL BID RF: 0 pantoprazole 40 mg Tablet,Delayed Release (Dr/Ec) 40 mg PO BID RF: 0 gabapentin 300 mg Capsule 600 mg PO TID RF: 0 hydroxyzine HCl 25 mg Tablet 50 mg PO HS RF: 0 hydroxyzine HCl 25 mg Tablet 25 mg PO QAM RF: 0 alprostadil 20 mcg Kit 20 mcg INTRA-CAVERNOSAL UD PRN (Reason: Erectile Dysfunction) RF: 0 prazosin 2 mg Capsule 4 mg PO HS RF: 0 buprenorphine HCl 8 mg tablet, sublingual 8 mg sublingual BID RF: 0 Lactobacillus acidophilus Tablet,Chewable 1 tab PO QAM RF: 0 tiotropium bromide 18 mcg Capsule, W/Inhalation Device 1 cap INHALATION DAILY RF: 0 pramoxine 1 % Foam 1 applic ID BID RF: 0 budesonide-formoterol 160-4.5 mcg/actuation Hfa Aerosol Inhaler 2 puff INHALATION BID RF: 0 mesalamine with cleansing wipe 4 gram/60 mL Enema Kit 4 g ID HS RF: 0 mesalamine 0.375 gram Capsule,Extended Release 24hr 0.75 g PO BID RF: 0 artificial saliva (cmce-lytes) Martin With Pump 1 spray PO 5XD PRN (Reason: Dry Mouth) RF: 0 losartan 100 mg Tablet 100 mg PO QAM RF: 0 Discharge Orders: Discharge Order (Routine); Ordered 11/03/18 Ordered By: Carlos Burger/Other Patient Handouts: Diabetes [employer] Complications, Diabetes Resources, Diabetes Type 2 Coping, Diabetes Type 2 Oral Meds, Diabetes Healthy Meals, Diabetes Carbs, Diabetes Keep Feet Healthy, Diabetes Inspect Feet, Diabetes Exercise Benefits, Diabetes Exercise Get Started, Diabetes Activity Tips Admission Data Admit Date/Time: 10/31/18 16:14 Attending Provider: Carlos Corado Admit Provider: Carlos Corado Primary Care Provider: Doc Morejon Other Providers: Sebastian Sampson ; Carlos Corado Other Interventions: Discharge Summary Assessment (RN) Last Done: 11/03/18 12:47 DC Date/Time DO NOT enter until pt leaves facility: 11/03/18 14:22
== END 2018-11-03 14:22 | disposition home health service (06) | DRG 603 ==
LOC: ED 12:27 → 2W 16:14

== ENCOUNTER 2020-06-06 05:40 | Inpatient (IN) ==
[2020-06-06] MEDS ORDERED: SODIUM CHLORIDE 0.9% 500 ML IV ONE (06:06)
--- NOTE | 2020-06-06 06:16 | Emergency Department Note ---
Impression & Plan Acute cholecystitis, Acute renal failure ED Provider Note NAME: MICHAEL MCGUIRE AGE: 65 SEX: M ARRIVES VIA: Ambulance INFORMANT: Patient ED PROVIDER(S): Nikki Lloyd DO CHIEF COMPLAINT: Right upper quadrant abdominal pain PLAN: Disposition: Admitted to the ICU-Dr. Ordonez/Dr. Carlson Condition: Critical MEDICAL DECISION MAKING: This is a 65-year-old obese male patient with multiple medical problems who p resents to the emergency department with severe right upper quadrant abdominal pain, fever and hypotension. The patient was seen at [facility] 3 days ago for right upper quadrant abdominal pain and was diagnosed with cholelithiasis and a thickened gallbladder wall. He was directed to follow-up with the [place] [facility] to arrange for possible cholecystectomy. Unfortunately, the patient has since developed a fever and increasing pain. He called EMS and they transported him here for evaluation. The patient is febrile and has developed leukocytosis with a white count that went from 6 to15.6. He also developed acute renal failure as his creatinine went from 1 to 4. The patient is normally on 5 L of home O2 and because the pain was so bad in his abdomen he has not been able to cough and therefore has developed rales in his lungs. Chest x-ray shows fluid overload. The patient was started on IV Zosyn for his acute abdomen thought to be from the gallbladder. I have discussed the case with Dr. Lion from surgery. I also discussed it with critical care medicine-Dr. Ordonez and internal medicine-Dr. Carlson. The patient will be admitted to the ICU. The patient was originally hypotensive. He received a 400 cc bolus of normal saline solution which brought his pressure up above 100. He was not tachycardic. CT scan was performed and confirmed an acute cholecystitis. Triage Nursing notes reviewed and agree them. Additional history obtained from the notes from [facility] Prior medical records reviewed Vital Signs: reviewed and remarkable for hypotension Differential diagnosis: Sepsis, acute cholecystitis, cholangitis, pancreatitis, perforated viscus, COVID-19 ER treatment provided: IV normal saline bolus, IV Zosyn Diagnostics interpreted by me: ECG: Normal sinus rhythm at a rate of 81. No ST segment elevation or signs of ischemia. There is no ectopy. QTC is 434 ms. Cardiac Monitoring: Normal sinus rhythm at a rate of 80 Laboratory studies: See below Imaging studies: See below Consultation(s): I discussed the case with Dr. Lion from surgery as well as Dr. Haile I discussed the case with Dr. Ordonez from critical care medicine and Dr. Carlson from internal medicine HPI: 65/M arrives for evaluation of right upper quadrant abdominal pain. This is a 65-year-old obese male patient with multiple medical problems who presents to the emergency department with severe right upper quadrant abdominal pain, fever and hypotension. The patient was seen at [facility] 3 days ago for right upper quadrant abdominal pain and was diagnosed with cholelithiasis and a thickened gallbladder wall. He was directed to the follow-up with the [place] [facility] to arrange for possible cholecystectomy. Unfortunately the patient has since developed a fever increasing right upper quadrant pain. ROS: See above HPI for pertinent positives & negatives. A total of 10 systems reviewed and were otherwise negative. PAST MEDICAL HISTORY:See Below PAST SURGICAL HISTORY:See Below FAMILY HISTORY:See Below SOCIAL HISTORY:See Below HOME MEDICATIONS:See Below ALLERGIES:See Below VITALS:See Below PHYSICAL EXAMINATION: HEENT: Head - normocephalic and atraumatic Pupils are equal, round, and reactive to light. Extraocular eye muscles are intact, and sclera are anicteric. Nose - moist nasal mucosa without discharge. Mouth - moist buccal mucosa. Oropharynx is nonerythematous and there is no tonsillar exudate or edema noted. Neck: Supple; no cervical lymphadenopathy or JVD Heart: Regular rate and rhythm. There is a normal S1 and S2 with no murmurs, clicks, or gallops appreciated. Lungs: Clear to auscultation bilaterally with no wheezes, rales, or rhonchi. Abdomen: Distended and exquisitely tender to palpation in the right upper quadrant with guarding and rebound. There was no rigidity noted. There are no palpable pulsatile masses or hepatosplenomegaly. Extremities: No evidence of cyanosis, clubbing, or edema. There are easily palpable peripheral pulses. Skin: Pale, warm and dry with good turgor and no rashes. ED COURSE: Times/Reassessments: 0545 the patient was evaluated in room C 11. A complete history and physical was performed. An IV lock was initiated and labs were dr galeas as above. A septic protocol was performed. The patient was bolused with 400 cc of saline as he was hypotensive. The patient was thought to have an acute abdomen as he was so painful with even light palpation to the abdomen. He had a portable chest x-ray performed which showed no free air and some free air. I consulted Dr. Lion from surgery because of what I thought was an acute surgical abdomen. He requested to wait to evaluate the patient until labs returned. I obtained records from [facility] when the patient was in the emergency department 3 days ago. Covid testing was performed. The patient was started on a dose of IV Zosyn. I discussed the case with Dr. Haile as it was after [address] Lion has ordered an ultrasound of the patient's abdomen to be performed at the bedside. I also discussed the case with Dr. Ordonez and Dr. Carlson. The patient will go for a CT scan of the abdomen/pelvis. The patient's blood pressure remains greater than 100 systolic at this time and he will go to the ICU for further care. I have personally spent greater than 90 minutes of critical care time in the direct management of this patient. This includes bedside care, interpretation of diagnostic studies, and testing, discussion with consultants, patient, and family members, and other required patient management activities. This 90 min utes is in excess of all separately billable procedures. Nikki Lloyd DO Past Med/Surg History Medical History (Updated 06/06/20 @ 08:01 by Nikki Lloyd DO) Arthralgia of multiple sites Bullous pemphigoid Chronic pain COPD (chronic obstructive pulmonary disease) DM type 2 (diabetes mellitus, type 2) Hypertension Hypoxia Memory loss MRSA infection Neuropathy Obesity Rheumatoid arthritis Surgical History History of incision and drainage Family History Other Hypertension Social History Smoking Status: Former smoker Tobacco Type: Cigarettes Hx Alcohol Use: No Hx Substance Use: No Preferred Language: Belarusian Communication Ability: Effective Beliefs That Will Affect Care: None marital status: Current Living Situation: Spouse Feels Safe at Home: Yes Assistive Devices: Oxygen - Continuous Allergies Allergies Allergy/AdvReac Type Severity Reaction Status Date / Time acesulfame Allergy Severe SEVERE Verified 11/19/19 08:46 RASH & VOMIT buprenorphine Allergy Severe SEVERE Verified 11/19/19 08:46 RASH & VOMIT naloxone Allergy Severe SEVERE Verified 11/19/19 08:46 RASH & VOMIT Suboxone Allergy Severe SEVERE Verified 09/14/17 05:40 RASH & VOMIT Sulfa (Sulfonamide Allergy Intermediate RASH / Verified 11/19/19 08:46 Antibiotics) ITCHINESS acetaminophen Allergy Unknown SEE NOTES Verified 11/19/19 08:46 quetiapine [From Seroquel] AdvReac Intermediate Nightmare Unverified 11/19/19 0 8:46 amitriptyline AdvReac Unknown Unknown Unverified 11/19/19 08:46 morphine AdvReac Unknown Unknown Unverified 11/19/19 08:46 Home Meds Home Medications Medication Instructions Recorded Confirmed alprostadil 20 mcg INTRA-CAVERNOSAL UD PRN 10/31/18 10/15/19 artificial saliva (cmce-lytes) 1 spray PO 5XD PRN 10/31/18 10/15/19 budesonide-formoterol 2 puff INHALATION BID 10/31/18 10/15/19 buprenorphine HCl 8 mg SUBLINGUAL BID 10/31/18 08/20/19 gabapentin 600 mg PO TID 10/31/18 08/20/19 mesalamine with cleansing wipe 4 g NY HS 10/31/18 10/15/19 pantoprazole 40 mg PO BID 10/31/18 10/15/19 pramoxine 1 applic NY BID 10/31/18 10/15/19 prazosin 4 mg PO HS 10/31/18 08/20/19 propranolol 80 mg PO BID 10/31/18 10/15/19 sennosides 8.6 mg PO BID 10/31/18 10/15/19 tiotropium bromide 1 cap INHALATION DAILY 10/31/18 10/15/19 torsemide 40 mg PO QAM 10/31/18 10/15/19 triamcinolone acetonide 1 applic TOPICAL BID 10/31/18 10/15/19 alogliptin 12.5 mg tablet 12.5 mg PO DAILY 08/20/19 08/20/19 hydroxyzine HCl 25 mg tablet 50 mg PO BID tab 08/20/19 08/20/19 metformin 500 mg tablet 500 mg PO QID tab 08/20/19 08/20/19 naloxone 4 mg/actuation nasal spray 4 mg INTNAS Q2M PRN 08/20/19 08/20/19 sertraline 100 mg tablet 50 mg PO DAILY tab 08/20/19 08/20/19 trazodone 50 mg tablet 50 mg PO HS PRN tab 08/20/19 08/20/19 Results & Data (ED) Vital Signs Vital Signs - 24 hr 06/06/20 05:48 06/06/20 05:50 06/06/20 05:57 Temperature 37.6 C H Temperature Source Oral Pulse Rate 81 80 82 Pulse Rate from SpO2 Sensor 80 82 Respiratory Rate 22 22 18 Respiratory Effort / Characteristics Blood Pressure 100/53 L 100/53 L Blood Pressure Mean 68 68 Pulse Oximetry 94 95 93 Oxygen Delivery Method Nasal Cannula Oxygen Flow Rate 5 Sepsis Recent Fever Within 48 Hours No Sepsis New/Unexplained Change in Mental Status No Sepsis Action Taken by Nursing No Action Required 06/06/20 05:58 06/06/20 06:00 06/06/20 06:26 Temperature Temperature Source Pulse Rate 82 79 Pulse Rate from SpO2 Sensor 82 81 Respiratory Rate 22 20 Respiratory Effort / Characteristics Blood Pressure 90/38 L 99/55 L Blood Pressure Mean 55 69 Pulse Oximetry 95 94 95 Oxygen Delivery Method Nasal Cannula Oxygen Flow Rate 5 Sepsis Recent Fever Within 48 Hours Sepsis New/Unexplained Change in Mental Status Sepsis Action Taken by Nursing 06/06/20 06:38 06/06/20 07:00 06/06/20 07:15 Temperature Temperature Source Pulse Rate 79 75 Pulse Rate from SpO2 Sensor 79 75 Respiratory Rate 25 H 22 Respiratory Effort / Characteristics Accessory Muscle Use Blood Pressure 102/59 L 96/53 L Blood Pressure Mean 73 67 Pulse Oximetry 92 95 Oxygen Delivery Method Nasal Cannula Nasal Cannula Oxygen Flow Rate 5 5 Sepsis Recent Fever Within 48 Hours Sepsis New/Unexplained Change in Mental Status Sepsis Action Taken by Nursing 06/06/20 07:43 06/06/20 07:44 06/06/20 07:45 Temperature Temperature Source Pulse Rate 74 75 77 Pulse Rate from SpO2 Sensor 77 75 79 Respiratory Rate 17 18 17 Respiratory Effort / Characteristics Blood Pressure 82/43 L 93/45 L 86/50 L Blood Pressure Mean 56 61 62 Pulse Oximetry 92 94 94 Oxygen Delivery Method Nasal Cannula Nasal Cannula Nasal Cannula Oxygen Flow Rate 5 5 5 Sepsis Recent Fever Within 48 Hours Sepsis New/Unexplained Change in Mental Status Sepsis Action Taken by Nursing 06/06/20 07:56 Temperature Temperature Source Pulse Rate 76 Pulse Rate from SpO2 Sensor 77 Respiratory Rate 23 Respiratory Effort / Characteristics Blood Pressure 99/61 L Blood Pressure Mean 73 Pulse Oximetry 93 Oxygen Delivery Method Nasal Cannula Oxygen Flow Rate 5 Sepsis Recent Fever Within 48 Hours Sepsis New/Unexplained Change in Mental Status Sepsis Action Taken by Nursing Laboratory Data Result diagrams: 06/06/20 Unknown 06/06/20 Unknown Lab Results 06/06/20 06/06/20 06/06/20 Range/Units 06:02 06:02 06:37 WBC (4.8-10.8) K/uL RBC (4.7-6.1) M/uL Hgb (14.0-18.0) g/dL Hct (42-52) % MCV (80-100) fL MCH (25-34) pg MCHC (32-36) g/dL RDW Std Deviation (36.4-46.3) fL RDW Coeff of Fely (11.5-14.5) % Plt Count (130-400) K/uL MPV (7.4-10.4) fL Immature Gran % (Auto) % Neut % (Auto) % Lymph % (Auto) % Greenlee % (Auto) % Eos % (Auto) % Baso % (Auto) % Neut # (Auto) (1.4-6.5) K/uL Lymph # (Auto) (1.2-3.4) K/uL Greenlee # (Auto) (0.11-0.59) K/uL Eos # (Auto) (0-0.5) K/uL Baso # (Auto) (0-0.2) K/uL Immature Gran # (Auto) (0.00-0.02) K/uL PT (9.0-12.0) Seconds INR (0.9-1.1) APTT (21.0-31.0) Seconds PTT Ratio Sodium (136-145) mmol/L Potassium (3.5-5.1) mmol/L Chloride (98-107) mmol/L Carbon Dioxide (21-32) mmol/L Anion Gap (3-11) BUN (7-18) mg/dl Creatinine (0.6-1.4) mg/dl Est Cr Clr Drug Dosing ml/min Est GFR ( Amer) Est GFR (Non-Af Amer) BUN/Creatinine Ratio (10-20) Glucose (70-99) mg/dl Lactate 0.9 (0.4-2.0) mmol/L Calcium (8.5-10.1) mg/dl Magnesium (1.8-2.4) mg/dl Total Bilirubin (0.2-1) mg/dl AST (15-37) U/L ALT (12-78) U/L Alkaline Phosphatase (45-117) U/L Troponin I (0-0.045) ng/ml Total Protein (6.4-8.2) gm/dl Albumin (3.4-5.0) gm/dl Globulin (2.5-4.0) gm/dl Albumin/Globulin Ratio (0.9-2) Lipase (73-393) U/L COVID-19 Eval Order CovFluRsv at [facility] SARS-CoV-2 (PCR) NEGATIVE (Negative) Influenza Type A (PCR) Negative (Neg) Influenza Type B (PCR) Negative (Neg) RSV (RT-PCR) Negative (Neg) 06/06/20 06/06/20 06/06/20 Range/Units Unknown Unknown Unknown WBC 15.61 H (4.8-10.8) K/uL RBC 3.56 L (4.7-6.1) M/uL Hgb 10.6 L (14.0-18.0) g/dL Hct 32.1 L (42-52) % MCV 90.2 (80-100) fL MCH 29.8 (25-34) pg MCHC 33.0 (32-36) g/dL RDW Std Deviation 51.7 H (36.4-46.3) fL RDW Coeff of Fely 15.4 H (11.5-14.5) % Plt Count 174 (130-400) K/uL MPV 9.7 (7.4-10.4) fL Immature Gran % (Auto) 0.3 % Neut % (Auto) 85.9 % Lymph % (Auto) 7.9 % Greenlee % (Auto) 4.9 % Eos % (Auto) 0.9 % Baso % (Auto) 0.1 % Neut # (Auto) 13.42 H (1.4-6.5) K/uL Lymph # (Auto) 1.23 (1.2-3.4) K/uL Greenlee # (Auto) 0.77 H (0.11-0.59) K/uL Eos # (Auto) 0.14 (0-0.5) K/uL Baso # (Auto) 0.01 (0-0.2) K/uL Immature Gran # (Auto) 0.04 H (0.00-0.02) K/uL PT 10.1 (9.0-12.0) Seconds INR 1.0 (0.9-1.1) APTT 25.0 (21.0-31.0) Seconds PTT Ratio 1.0 Sodium 133 L (136-145) mmol/L Potassium 4.6 (3.5-5.1) mmol/L Chloride 99 (98-107) mmol/L Carbon Dioxide 29 (21-32) mmol/L Anion Gap 5.0 (3-11) BUN 36 H (7-18) mg/dl Creatinine 4.06 H (0.6-1.4) mg/dl Est Cr Clr Drug Dosing 25.4 ml/min Est GFR ( Amer) 16.9 Est GFR (Non-Af Amer) 14.6 BUN/Creatinine Ratio 8.9 L (10-20) Glucose 141 H (70-99) mg/dl Lactate (0.4-2.0) mmol/L Calcium 8.2 L (8.5-10.1) mg/dl Magnesium 1.8 (1.8-2.4) mg/dl Total Bilirubin 0.9 (0.2-1) mg/dl AST 23 (15-37) U/L ALT 16 (12-78) U/L Alkaline Phosphatase 166 H (45-117) U/L Troponin I < 0.015 (0-0.045) ng/ml Total Protein 7.7 (6.4-8.2) gm/dl Albumin 2.5 L (3.4-5.0) gm/dl Globulin 5.2 H (2.5-4.0) gm/dl Albumin/Globulin Ratio 0.5 L (0.9-2) Lipase 34 L (73-393) U/L COVID-19 Eval Order SARS-CoV-2 (PCR) (Negative) Influenza Type A (PCR) (Neg) Influenza Type B (PCR) (Neg) RSV (RT-PCR) (Neg) Administered Medications Discontinued Medications Sodium Chloride (Nss) 500 mls @ 999 mls/hr IV .Q31M ONE Stop: 06/06/20 06:36 Last Infusion: 06/06/20 06:59 Dose: 0 mls/hr Documented by: [id number] Admin: 06/06/20 06:30 Dose: 999 mls/hr Documented by: [id number] Piperacillin Sod/Tazobactam Sod (Zosyn) 4.5 gm in 120 mls @ 240 mls/hr IV NOW ONE Stop: 06/06/20 07:14 Last Admin: 06/06/20 06:56 Dose: 240 mls/hr Documented by: [id number] Imaging Data Radiologist's Impression: Chest X-Ray 06/06/20 06:06 XR chest 1V portable CLINICAL HISTORY: Shortness of breath COMPARISON STUDY: 10/31/2018 FINDINGS: The heart remains enlarged. There is mild interstitial thickening similar to the prior study. There is no focal pulmonary consolidation. There are no pleural effusions.[ IMPRESSION: Cardiomegaly and mild interstitial thickening similar to the prior study. No evidence of lobar consolidation ACT 112: Negative or not required by law. Electronically signed by: Oscar Blunt M.D. 06/06/2020 6:58 AM Abdomen/Pelvis CT 06/06/20 07:15 CT SCAN OF THE ABDOMEN AND PELVIS WITHOUT CONTRAST CLINICAL HISTORY: Severe abdominal pain. COMPARISON STUDY: 05/22/2014 TECHNIQUE: CT scan of the abdomen and pelvis was performed from the lung bases to the proximal femurs. Images are reviewed in the axial, sagittal, and coronal planes. IV contrast was not administered for this examination. A dose lowering technique was utilized adhering to the principles of ALARA. CT DOSE: 1129.23 mGycm FINDINGS: Lower chest: There are right basilar airspace opacities, likely atelectatic although an infectious/inflammatory process could appear similar. There are lingular atelectatic changes. Liver: The liver is enlarged. There is a slightly nodular serosal surface-based the possibility of cirrhosis. Gallbladder: The gallbladder is distended. There are gallstones. There is pericholecystic edema. The findings are suspicious for acute cholecystitis Spleen: Enlarged measuring 16 cm Pancreas: Unremarkable. Adrenal glands: Unremarkable. Kidneys: No renal, ureteral, or bladder calculi are visualized Bowel: There are no transition zones indicate bowel obstruction. There is no evidence of acute diverticulitis. There is no convincing evidence of acute appendicitis given the limitations of a study performed without intravenous or oral contrast Peritoneum: There is no free intraperitoneal air. There is trace perihepatic fluid Vasculature: The abdominal aorta is normal in course and caliber. Adenopathy: None. Pelvic viscera: The bladder, and pelvic viscera are unremarkable. Skeletal structures: There is bilateral L5 spondylolysis. There is grade 1 spondylolisthesis of L5 on S1. IMPRESSION: 1. Cholelithiasis. Distended gallbladder. Pericholecystic infiltration. The findings are viewed as suspicious for acute cholecystitis. Surgical consultation recommended. 2. Suspected hepatic cirrhosis with hepatosplenomegaly. ACT 112: Negative or not required by law. Electronically signed by: Oscar Blunt M.D. 06/06/2020 7:54 AM Discharge Plan Visit Data Chief Complaint: Abdominal Pain Stated Complaint: ABDOMINAL PAIN ED Provider: Nikki Lloyd Discharge Problem: Acute cholecystitis, Acute renal failure Forms Stand Alone Forms: [facility] Prescriptions Prescriptions: No Action sertraline 100 mg tablet 50 mg PO DAILY RF: 0 trazodone 50 mg tablet 50 mg PO HS PRN (Reason: sleep) RF: 0 metformin 500 mg tablet 500 mg PO QID RF: 0 naloxone 4 mg/actuation spray,non-aerosol 4 mg INTNAS Q2M PRNRF: 0 alogliptin 12.5 mg tablet 12.5 mg PO DAILY RF: 0 sennosides 8.6 mg Tablet 8.6 mg PO BID RF: 0 propranolol 80 mg Tablet 80 mg PO BID RF: 0 torsemide 20 mg Tablet 40 mg PO QAM RF: 0 triamcinolone acetonide 0.5 % Cream 1 applic TOPICAL BID RF: 0 pantoprazole 40 mg Tablet,Delayed Release (Dr/Ec) 40 mg PO BID RF: 0 gabapentin 300 mg Capsule 600 mg PO TID RF: 0 alprostadil 20 mcg Kit 20 mcg INTRA-CAVERNOSAL UD PRN (Reason: Erectile Dysfunction) RF: 0 prazosin 2 mg Capsule 4 mg PO HS RF: 0 buprenorphine HCl 8 mg tablet, sublingual 8 mg sublingual BID RF: 0 tiotropium bromide 18 mcg Capsule, W/Inhalation Device 1 cap INHALATION DAILY RF: 0 pramoxine 1 % Foam 1 applic [place] BID RF: 0 budesonide-formoterol 160-4.5 mcg/actuation Hfa Aerosol Inhaler 2 puff INHALATION BID RF: 0 mesalamine with cleansing wipe 4 gram/60 mL Enema Kit 4 g NY HS RF: 0 artificial saliva (cmce-lytes) Harrell With Pump 1 spray PO 5XD PRN (Reason: Dry Mouth) RF: 0 hydroxyzine HCl 25 mg tablet 50 mg PO BID RF: 0 Discharge Problem: Acute renal failure Qualifiers: Acute renal failure type: unspecified Qualified Code(s): N17.9 - Acute kidney failure, unspecified
[2020-06-06] MEDS ORDERED: PIPERACILL/TAZOBAC CONSULT ACTIVE PRN ×2 (06:45→08:13)
[2020-06-06] MEDS ORDERED: PIPERACILLIN/TAZOBACTAM 4.5 GM/120 ML BAG IV ONE (06:45)
[2020-06-06 06:54] LABS: Basophils # (auto) 0.01 K/uL (0-0.2); Basophils % (auto) 0.1 %; Eosinophils # (auto) 0.14 K/uL (0-0.5); Eosinophils % (auto) 0.9 %; Hematocrit (blood only) 32.1 % (42-52); Hemoglobin 10.6 g/dL (14.0-18.0); Immature Granulocytes # (auto) 0.04 K/uL (0.00-0.02); Immature Granulocytes % (auto) 0.3 %; Lymphocytes # (auto) 1.23 K/uL (1.2-3.4); Lymphocytes % (auto) 7.9 %; Mean Corpuscular Hemoglobin 29.8 pg (25-34); Mean Corpuscular Volume 90.2 fL (80-100); Mean Platelet Volume 9.7 fL (7.4-10.4); Monocytes # (auto) 0.77 K/uL (0.11-0.59); Monocytes % (auto) 4.9 %; Neutrophils # (auto) 13.42 K/uL (1.4-6.5); Neutrophils % (auto) 85.9 %; Platelet Count 174 K/uL (130-400); RDW Coefficient of Variation 15.4 % (11.5-14.5); RDW Standard Deviation 51.7 fL (36.4-46.3); Red Blood Count 3.56 M/uL (4.7-6.1); White Blood Count 15.61 K/uL (4.8-10.8)
--- NOTE | 2020-06-06 06:59 | XRay Report ---
XR chest 1V portable CLINICAL HISTORY: Shortness of breath COMPARISON STUDY: 10/31/2018 FINDINGS: The heart remains enlarged. There is mild interstitial thickening similar to the prior stud y. There is no focal pulmonary consolidation. There are no pleural effusions.[ IMPRESSION: Cardiomegaly and mild interstitial thickening similar to the prior study. No evidence of lobar consolidation ACT 112: Negative or not required by law. Electronically signed by: Oscar Blunt M.D. 06/06/2020 6:58 AM
[2020-06-06 07:04] LABS: Prothrombin Time 10.1 Seconds (9.0-12.0)
[2020-06-06 07:11] LABS: Alanine Aminotransferase 16 U/L (12-78); Albumin Level 2.5 gm/dl (3.4-5.0); Aspartate Aminotransferase 23 U/L (15-37); BUN Creatinine Ratio 8.9 (10-20); Blood Urea Nitrogen 36 mg/dl (7-18); Calcium 8.2 mg/dl (8.5-10.1); Carbon Dioxide 29 mmol/L (21-32); Chloride 99 mmol/L (98-107); Creatinine Clr Calc Pharmacy 25.4 ml/min; Est GFR (African American) 16.9; Est GFR (Non-African American) 14.6; Glucose 141 mg/dl (70-99); Lipase 34 U/L (73-393); Magnesium 1.8 mg/dl (1.8-2.4); Potassium 4.6 mmol/L (3.5-5.1); Sodium 133 mmol/L (136-145)
[2020-06-06 07:16] LABS: Albumin Globulin Ratio 0.5 (0.9-2); Alkaline Phosphatase 166 U/L (45-117); Bilirubin,Total 0.9 mg/dl (0.2-1); Globulin 5.2 gm/dl (2.5-4.0); Total Protein 7.7 gm/dl (6.4-8.2); Troponin I < 0.015 ng/ml (0-0.045)
[2020-06-06 07:19] LABS: Influenza A virus by PCR Negative (Neg); Influenza B virus by PCR Negative (Neg); RSV by PCR Negative (Neg); SARS CoV2 RNA(COVID-19) InHosp NEGATIVE (Negative)
--- NOTE | 2020-06-06 07:37 | Surgery Consultation ---
Date of Consultation June 06, 2020 Assessment & Plan (1) Acute cholecystitis: pt is a 65 year-old male who with severe COPD, DM, he presents to ER with 2 days history acute RUQ pain, CT scan diagnosis- acute cholecystitis with cholelithiasis Plan, base on pt significant co-morbilities, severe COPD and DM, pt is not candidate for cholecystectomy, recommend to transfer higher level care for percutaneous drainage gallbladder by intervention radiologist, D/W pt and his about benefits, risks and alternatives of the transfer, they agree with transfer,I answered all questions, D/W ICU attending, Present on Admission?: Yes History of Present Illness History of Present Illness CC: abdominal pain HPI: pt is a 65 year-old male who with significant PMH of COPD, DM, HTN, pt presents to ER with EMS for 2 days history RUQ pain, pt went to other hospital, pt had CT scan and U/S study, he was told he should have gallbladder remove, they asked pt to contact [facility], pt said the pain is 8/10, on RUQ, pt denies fever, no nausea, no vomiting, no chest pain, Allergies Allergy/AdvReac Type Severity Reaction Status Date / Time acesulfame Allergy Severe SEVERE Verified 11/19/19 08:46 RASH & VOMIT buprenorphine Allergy Severe SEVERE Verified 11/19/19 08:46 RASH & VOMIT naloxone Allergy Severe SEVERE Verified 11/19/19 08:46 RASH & VOMIT Suboxone Allergy Severe SEVERE Verified 09/14/17 05:40 RASH & VOMIT Sulfa (Sulfonamide Allergy Intermediate RASH / Verified 11/19/19 08:46 Antibiotics) ITCHINESS acetaminophen Allergy Unknown SEE NOTES Verified 11/19/19 08:46 quetiapine [From Seroquel] AdvReac Intermediate Nightmare Unverified 11/19/19 08:46 amitriptyline AdvReac Unknown Unknown Unverified 11/19/19 08:46 morphine AdvReac Unknown Unknown Unverified 11/19/19 08:46 Home Medications Medication Instructions Recorded Confirmed Type alprostadil 20 mcg INTRA-CAVERNOSAL UD PRN 10/31/18 10/15/19 History artificial saliva (cmce-lytes) 1 spray PO 5XD PRN 10/31/18 10/15/19 History budesonide-formoterol 2 puff INHALATION BID 10/31/18 10/15/19 History buprenorphine HCl 8 mg SUBLINGUAL BID 10/31/18 08/20/19 History gabapentin 600 mg PO TID 10/31/18 08/20/19 History mesalamine with cleansing wipe 4 g MS HS 10/31/18 10/15/19 History pantoprazole 40 mg PO BID 10/31/18 10/15/19 History pramoxine 1 applic MS BID 10/31/18 10/15/19 History prazosin 4 mg PO HS 10/31/18 08/20/19 History propranolol 80 mg PO BID 10/31/18 10/15/19 History sennosides 8.6 mg PO BID 10/31/18 10/15/19 History tiotropium bromide 1 cap INHALATION DAILY 10/31/18 10/15/19 History torsemide 40 mg PO QAM 10/31/18 10/15/19 History triamcinolone acetonide 1 applic TOPICAL BID 10/31/18 10/15/19 History alogliptin 12.5 mg tablet 12.5 mg PO DAILY 08/20/19 08/20/19 History hydroxyzine HCl 25 mg tablet 50 mg PO BID tab 08/20/19 08/20/19 History metformin 500 mg tablet 500 mg PO QID tab 08/20/19 08/20/19 History naloxone 4 mg/actuation nasal spray 4 mg INTNAS Q2M PRN 08/20/19 08/20/19 History sertraline 100 mg tablet 50 mg PO DAILY tab 08/20/19 08/20/19 History trazodone 50 mg tablet 50 mg PO HS PRN tab 08/20/19 08/20/19 History Patient History Medical History (Updated 06/06/20 @ 09:47 by Mary Carlson MD) Acute renal failure Anemia Arthralgia of multiple sites Bullous pemphigoid Chronic pain Chronic pain COPD (chronic obstructive pulmonary disease) DM type 2 (diabetes mellitus, type 2) History of intravenous drug abuse Hypertension Hypoxia Memory loss MRSA infection Neuropathy Obesity Rheumatoid arthritis Surgical History History of incision and drainage Family History Other Hypertension Social History Smoking Status: Former smoker Tobacco Type: Cigarettes Hx Alcohol Use: No Hx Substance Use: No Preferred Language: Ukrainian Communication Ability: Effective Beliefs That Will Affect Care: None marital status: Current Living Situation: Spouse Feels Safe at Home: Yes Assistive Devices: Oxygen - Continuous Review of Systems 2 Review of Systems: All systems reviewed & are unremarkable except as noted in HPI & below obesity Constitutional: as per Subjective / HPI Eyes: as per Subjective / HPI Ear, Nose, Mouth, Throat: as per Subjective / HPI Respiratory: as per Subjective / HPI COPD Cardiovascular: as per Subjective / HPI Additional Comments: HTN Gastrointestinal: as per Subjective / HPI Genitourinary: + as per Subjective / HPI Musculoskeletal: as per Subjective / HPI Integumentary: as per Subjective / HPI Neurologic: as per Subjective / HPI Psychiatric: as per Subjective / HPI memory loss, Endocrine: as per Subjective / HPI Hematologic / Lymphatic: as per Subjective / HPI Allergy / Immunological: as per Subjective / HPI Physical Exam Constitutional: WD/WN, vitals as above well developed, well nourished and + acute distress Eyes: PERRL, conjunctivae normal, anicteric sclerae ENMT: external ear and nose normal, oropharynx normal Neck: trachea midline, no thyromegaly Respiratory: normal respiratory effort, lungs clear to auscultation normal respiratory effort Cardiovascular: RRR, no murmur, no edema Rate/Rhythm: regular rate and reg ular rhythm Gastrointestinal (Abdomen): Percussion/Palpation: + abdomen tender and abdomen soft tenderness at RUQ, rebound pain -, no distend, BS + Musculoskeletal: no cyanosis or clubbing, extremities motor strength 5/5 Skin: no rashes, warm and dry Neurologic: awake Psychiatric: Orientation: alert and oriented x 3 Results & Data ([facility]) Vital Signs (Past 12 Hours) Vital Signs Temp Pulse Resp BP Pulse Ox 06/06/20 07:00 79 25 H 102/59 L 92 06/06/20 06:26 79 20 99/55 L 95 06/06/20 06:00 82 22 90/38 L 94 06/06/20 05:58 95 06/06/20 05:57 82 18 93 06/06/20 05:50 37.6 C H 80 22 100/53 L 95 06/06/20 05:48 81 22 100/53 L 94 Laboratory Results Abnormal lab results 06/06/20 06/06/20 Range/Units Unknown Unknown WBC 15.61 H (4.8-10.8) K/uL RBC 3.56 L (4.7-6.1) M/uL Hgb 10.6 L (14.0-18.0) g/dL Hct 32.1 L (42-52) % RDW Std Deviation 51.7 H (36.4-46.3) fL RDW Coeff of Fely 15.4 H (11.5-14.5) % Neut # (Auto) 13.42 H (1.4-6.5) K/uL Pickett # (Auto) 0.77 H (0.11-0.59) K/uL Immature Gran # (Auto) 0.04 H (0.00-0.02) K/uL Sodium 133 L (136-145) mmol/L BUN 36 H (7-18) mg/dl Creatinine 4.06 H (0.6-1.4) mg/dl BUN/Creatinine Ratio 8.9 L (10-20) Glucose 141 H (70-99) mg/dl Calcium 8.2 L (8.5-10.1) mg/dl Alkaline Phosphatase 166 H (45-117) U/L Albumin 2.5 L (3.4-5.0) gm/dl Globulin 5.2 H (2.5-4.0) gm/dl Albumin/Globulin Ratio 0.5 L (0.9-2) Lipase 34 L (73-393) U/L CT SCAN OF THE ABDOMEN AND PELVIS WITHOUT CONTRAST CLINICAL HISTORY: Severe abdominal pain. COMPARISON STUDY: 05/22/2014 TECHNIQUE: CT scan of the abdomen and pelvis was performed from the lung bases to the proximal femurs. Images are reviewed in the axial, sagittal, and coronal planes. IV contrast was not administered for this examination. A dose lowering technique was utilized adhering to the principles of ALARA. CT DOSE: 1129.23 mGycm FINDINGS: Lower chest: There are right basilar airspace opacities, likely atelectatic although an infectious/inflammatory process could appear similar. There are lingular atelectatic changes. Liver: The liver is enlarged. There is a slightly nodular serosal surface-based the possibility of cirrhosis. Gallbladder: The gallbladder is distended. There are gallstones. There is pericholecystic edema. The findings are suspicious for acute cholecystitis Spleen: Enlarged measuring 16 cm Pancreas: Unremarkable. Adrenal glands: Unremarkable. Kidneys: No renal, ureteral, or bladder calculi are visualized Bowel: There are no transition zones indicate bowel obstruction. There is no evidence of acute diverticulitis. There is no convincing evidence of acute appendicitis given the limitations of a study performed without intravenous or oral contrast Peritoneum: There is no free intraperitoneal air. There is trace perihepatic fluid Vasculature: The abdominal aorta is normal in course and caliber. Adenopathy: None. Pelvic viscera: The bladder, and pelvic viscera are unremarkable. Skeletal structures: There is bilateral L5 spondylolysis. There is grade 1 spondylolisthesis of L5 on S1. IMPRESSION: 1. Cholelithiasis. Distended gallbladder. Pericholecystic infiltration. The findings are viewed as suspicious for acute cholecystitis. Surgical consultation recommended. 2. Suspected hepatic cirrhosis with hepatosplenomegaly.
--- NOTE | 2020-06-06 07:55 | CT Scan Report ---
CT SCAN OF THE ABDOMEN AND PELVIS WITHOUT CONTRAST CLINICAL HISTORY: Severe abdominal pain. COMPARISON STUDY: 05/22/2014 TECHNIQUE: CT scan of the abdomen and pelvis was performed from the lung bases to the proximal femurs . Images are reviewed in the axial, sagittal, and coronal planes. IV contrast was not administered fo r this examination. A dose lowering technique was utilized adhering to the principles of ALARA. CT DOSE: 1129.23 mGycm FINDINGS: Lower chest: There are right basilar airspace opacities, likely atelectatic although an infectious/in flammatory process could appear similar. There are lingular atelectatic changes. Liver: The liver is enlarged. There is a slightly nodular serosal surface-based the possibility of ci rrhosis. Gallbladder: The gallbladder is distended. There are gallstones. There is pericholecystic edema. The findings are suspicious for acute cholecystitis Spleen: Enlarged measuring 16 cm Pancreas: Unremarkable. Adrenal glands: Unremarkable. Kidneys: No renal, ureteral, or bladder calculi are visualized Bowel: There are no transition zones indicate bowel obstruction. There is no evidence of acute divert iculitis. There is no convincing evidence of acute appendicitis given the limitations of a study perf ormed without intravenous or oral contrast Peritoneum: There is no free intraperitoneal air. There is trace perihepatic fluid Vasculature: The abdominal aorta is normal in course and caliber. Adenopathy: None. Pelvic viscera: The bladder, and pelvic viscera are unremarkable. Skeletal structures: There is bilateral L5 spondylolysis. There is grade 1 spondylolisthesis of L5 on S1. IMPRESSION: 1. Cholelithiasis. Distended gallbladder. Pericholecystic infiltration. The findings are viewed as pascual spicious for acute cholecystitis. Surgical consultation recommended. 2. Suspected hepatic cirrhosis with hepatosplenomegaly. ACT 112: Negative or not required by law. Electronically signed by: Oscar Blunt M.D. 06/06/2020 7:54 AM
--- NOTE | 2020-06-06 07:58 | History & Physical Report ---
Date of Service June 06, 2020 Assessment & Plan (1) Acute cholecystitis: Presents with acute cholecystitis, hypotension, significantly elevated procalcitonin, tachypnea, leukocytosis, but lactate normal, no fever here. CT abdomen/pelvis confirms acute cholecystitis. Only alkaline phosphatase is elevated but LFTs otherwise are normal, no suggestion of choledocholithiasis -Admitted to intensive care unit given hypotension, acute kidney injury and sepsis -Given acute kidney injury, chronic hypoxia requiring 5 L with some mild increased respiratory insufficiency, general surgery saw the patient and recommended transfer for percutaneous drainage of the gallbladder -Continue Zosyn -Continue IV fluids for resuscitation -Pain control with IV Tylenol, avoid opioids at this time due to hypotension -We will contact [facility] in [place] for transfer -Follow blood cultures -Follow CBC, CMP, magnesium, phosphorus, procalcitonin -Keep n.p.o. (2) Acute renal failure: Baseline creatinine is 1 and creatinine here is 4 Likely secondary to ATN from hypotension and sepsis as well as prerenal from dehydration due to acute cholecystitis Also in the setting of taking torsemide and losartan at home Fortunately potassium and serum bicarbonate are within normal limits -Hold home torsemide and losartan -Give resuscitative IV fluids now with caution giving respiratory status -Follow serial BMP -He is making urine, Place Ruiz catheter Consider nephrology consultation (3) Sepsis: As above, secondary to acute cholecystitis Resuscitated with IV fluids, continue with IV antibiotics Following blood cultures May need pressors if blood pressure remains low after IV fluid resuscitation Defer to ICU for this (4) DM type 2 (diabetes mellitus, type 2): With mild hyperglycemia here upon admission Insulin sliding scale with Accu-Cheks every 6 hours while n.p.o. Check hemoglobin A1c Holding home p.o. meds (5) COPD (chronic obstructive pulmonary disease): On chronically 5 L nasal cannula at home with some increased tachypnea here secondary to pain and sepsis Continue supplemental O2 to keep pulse ox greater than 88% Continue home inhalers Albuterol as needed (6) Hypoxia: Chronic respiratory failure with hypoxia on 5 L nasal cannula as above (7) Memory loss: Mild cognitive impairment Supportive care (8) Arthralgia of multiple sites: Is on home buprenorphine-hold this for now (9) Chronic pain: Hold home buprenorphine as above Hold home gabapentin for acute kidney injury (10) Anemia: Hemoglobin is 10, normocytic Follow CBC (11) Hypertension: Blood pressures low as above Holding home torsemide and losartan (12) DVT prophylaxis: SCDs only in case of need for procedure today Disposition-admit to ICU but plan on transferring to tertiary care facility when bed available History of Present Illness Chief Complaint: Abdominal pain Primary Care Provider: Doc Morejon MD This patient is a 65-year-old male with a history of obesity, HTN, DM 2, severe COPD on 5 L nasal cannula at home, lower extremity edema, GERD, chronic pain on buprenorphine, lower back pain, history of remote IV drug abuse, who presents to the ER with severe right-sided abdominal pain. He was seen at an outside ER 3 days ago and was told that he had cholelithiasis and a thickened gallbladder but was stable for discharge to home for outpatient follow-up with the surgeon. Today the pain became significantly worse. He denies nausea or vomiting, no diarrhea or bloody stools. He denies fevers or chills, no lightheadedness. He reports he has been drinking Gatorade and water but his urine amount has gone down from his usual. He did take his torsemide and losartan this morning. In the ER here, he was hypotensive in the 70s to 80s systolic which did respond to a gentle normal saline bolus of 500 mils up to systolics in the 90s to 100s. He was found to have acute kidney injury with a creatinine of 4, leukocytosis, lactate was normal, procalcitonin was elevated significantly at 9, and a CT of the abdomen/pelvis showed acute cholecystitis without evidence of c holedocholithiasis. LFTs were actually normal except for mildly elevated alkaline phosphatase. Blood cultures were drawn. He was given IV Zosyn and urgent surgical consultation was obtained. General surgery saw the patient and was awaiting the results of the CT scan. The patient was admitted to the ICU for resuscitation. The surgeon came back later and advised transfer to tertiary care facility for consideration for percutaneous drain given acute kidney injury and poor respiratory status, felt to be a poor surgical candidate. Allergies Allergy/AdvReac Type Severity Reaction Status Date / Time acesulfame Allergy Severe SEVERE Verified 11/19/19 08:46 RASH & VOMIT buprenorphine Allergy Severe SEVERE Verified 11/19/19 08:46 RASH & VOMIT naloxone Allergy Severe SEVERE Verified 11/19/19 08:46 RASH & VOMIT Suboxone Allergy Severe SEVERE Verified 09/14/17 05:40 RASH & VOMIT Sulfa (Sulfonamide Allergy Intermediate RASH / Verified 11/19/19 08:46 Antibiotics) ITCHINESS acetaminophen Allergy Unknown SEE NOTES Verified 11/19/19 08:46 quetiapine [From Seroquel] AdvReac Intermediate Nightmare Unverified 11/19/19 08:46 amitriptyline AdvReac Unknown Unknown Unverified 11/19/19 08:46 morphine AdvReac Unknown Unknown Unverified 11/19/19 08:46 Home Medications Medication Instructions Recorded Confirmed Type alprostadil 20 mcg INTRA-CAVERNOSAL UD PRN 10/31/18 10/15/19 History artificial saliva (cmce-lytes) 1 spray PO 5XD PRN 10/31/18 10/15/19 History budesonide-formoterol 2 puff INHALATION BID 10/31/18 10/15/19 History buprenorphine HCl 8 mg SUBLINGUAL BID 10/31/18 08/20/19 History gabapentin 600 mg PO TID 10/31/18 08/20/19 History mesalamine with cleansing wipe 4 g IN HS 10/31/18 10/15/19 History pantoprazole 40 mg PO BID 10/31/18 10/15/19 History pramoxine 1 applic IN BID 10/31/18 10/15/19 History prazosin 4 mg PO HS 10/31/18 08/20/19 History propranolol 80 mg PO BID 10/31/18 10/15/19 History sennosides 8.6 mg PO BID 10/31/18 10/15/19 History tiotropium bromide 1 cap INHALATION DAILY 10/31/18 10/15/19 History torsemide 40 mg PO QAM 10/31/18 10/15/19 History triamcinolone acetonide 1 applic TOPICAL BID 10/31/18 10/15/19 History alogliptin 12.5 mg tablet 12.5 mg PO DAILY 08/20/19 08/20/19 History hydroxyzine HCl 25 mg tablet 50 mg PO BID tab 08/20/19 08/20/19 History metformin 500 mg tablet 500 mg PO QID tab 08/20/19 08/20/19 History naloxone 4 mg/actuation nasal spray 4 mg INTNAS Q2M PRN 08/20/19 08/20/19 History sertraline 100 mg tablet 50 mg PO DAILY tab 08/20/19 08/20/19 History trazodone 50 mg tablet 50 mg PO HS PRN tab 08/20/19 08/20/19 History Past Med/Surg History Medical History (Updated 06/06/20 @ 09:47 by Mary Carlson MD) Acute renal failure Anemia Arthralgia of multiple sites Bullous pemphigoid Chronic pain Chronic pain COPD (chronic obstructive pulmonary disease) DM type 2 (diabetes mellitus, type 2) History of intravenous drug abuse Hypertension Hypoxia Memory loss MRSA infection Neuropathy Obesity Rheumatoid arthritis Surgical History History of incision and drainage Family History Other Hypertension Social History Smoking Status: Former smoker Tobacco Type: Cigarettes Hx Alcohol Use: No Hx Substance Use: No Preferred Language: Tajik Communication Ability: Effective Beliefs That Will Affect Care: None marital status: Current Living Situation: Spouse Feels Safe at Home: Yes Assistive Devices: Oxygen - Continuous Review of Systems Review of Systems: All systems reviewed & are unremarkable except as noted in HPI & below Physical Exam Constitutional: WD/WN, vitals as above Eyes: PERRL, conjunctivae normal, anicteric sclerae ENMT: Ears: no hearing impairment Mouth: + oral mucosal abnormality (Extremely dry mucous membranes and tongue) Neck: trachea midline, no thyromegaly (Obese neck) Respiratory: + tachypneic (Mild) Auscultation: + crackles (Bibasilar); no rhonchi and no wheezes Cardiovascular: Rate/Rhythm: regular rate and regular rhythm Heart Sounds: no murmur Vessels: dorsalis pedis pulses present (1+ bilaterally) Extremities: + edema (Trace pitting edema of the distal legs bilaterally); no calf tenderness Chest (Breasts): Chest: normal inspection of chest Gastrointestinal (Abdomen): Inspection/Auscultation: abdomen normal to inspection, + abdomen distended (Mild) and normal bowel sounds Percussion/Palpation: + abdomen tender (Exquisitely tender all in the right side of the abdomen with guarding) and abdomen soft (Soft on left side of abdomen); abdomen not rigid and no hernia Musculoskeletal: Extremities: extremities normal to inspection; no cyanosis and no clubbing Skin: no rashes, warm and dry Neurologic: moves all extremities and awake; no focal motor deficits Psychiatric: A+Ox3, euthymic affect Lymphatic: no lymphedema Results & Data Results & Data ([facility]) Vital Signs (Past 12 Hours) Vital Signs Temp Pulse Resp BP Pulse Ox 06/06/20 07:45 77 17 86/50 L 94 06/06/20 07:44 75 18 93/45 L 94 06/06/20 07:43 74 17 82/43 L 92 06/06/20 07:15 75 22 96/53 L 95 06/06/20 07:00 79 25 H 102/59 L 92 06/06/20 06:26 79 20 99/55 L 95 06/06/20 06:00 82 22 90/38 L 94 06/06/20 05:58 95 06/06/20 05:57 82 18 93 06/06/20 05:50 37.6 C H 80 22 100/53 L 95 06/06/20 05:48 81 22 100/53 L 94 Laboratory Results 06/06/20 06/06/20 06/06/20 Range/Units Unknown Unknown Unknown WBC 15.61 H (4.8-10.8) K/uL RBC 3.56 L (4.7-6.1) M/uL Hgb 10.6 L (14.0-18.0) g/dL Hct 32.1 L (42-52) % MCV 90.2 (80-100) fL MCH 29.8 (25-34) pg MCHC 33.0 (32-36) g/dL RDW Std Deviation 51.7 H (36.4-46.3) fL RDW Coeff of Fely 15.4 H (11.5-14.5) % Plt Count 174 (130-400) K/uL MPV 9.7 (7.4-10.4) fL Immature Gran % (Auto) 0.3 % Neut % (Auto) 85.9 % Lymph % (Auto) 7.9 % [place] % (Auto) 4.9 % Eos % (Auto) 0.9 % Baso % (Auto) 0.1 % Neut # (Auto) 13.42 H (1.4-6.5) K/uL Lymph # (Auto) 1.23 (1.2-3.4) K/uL [place] # (Auto) 0.77 H (0.11-0.59) K/uL Eos # (Auto) 0.14 (0-0.5) K/uL Baso # (Auto) 0.01 (0-0.2) K/uL Immature Gran # (Auto) 0.04 H (0.00-0.02) K/uL PT 10.1 (9.0-12.0) Seconds INR 1.0 (0.9-1.1) APTT 25.0 (21.0-31.0) Seconds PTT Ratio 1.0 Sodium 133 L (136-145) mmol/L Potassium 4.6 (3.5-5.1) mmol/L Chloride 99 (98-107) mmol/L Carbon Dioxide 29 (21-32) mmol/L Anion Gap 5.0 (3-11) BUN 36 H (7-18) mg/dl Creatinine 4.06 H (0.6-1.4) mg/dl Est Cr Clr Drug Dosing 25.4 ml/min Est GFR ( Amer) 16.9 Est GFR (Non-Af Amer) 14.6 BUN/Creatinine Ratio 8.9 L (10-20) Glucose 141 H (70-99) mg/dl Lactate (0.4-2.0) mmol/L Calcium 8.2 L (8.5-10.1) mg/dl Magnesium 1.8 (1.8-2.4) mg/dl Total Bilirubin 0.9 (0.2-1) mg/dl AST 23 (15-37) U/L ALT 16 (12-78) U/L Alkaline Phosphatase 166 H (45-117) U/L Troponin I < 0.015 (0-0.045) ng/ml Total Protein 7.7 (6.4-8.2) gm/dl Albumin 2.5 L (3.4-5.0) gm/dl Globulin 5.2 H (2.5-4.0) gm/dl Albumin/Globulin Ratio 0.5 L (0.9-2) Lipase 34 L (73-393) U/L COVID-19 Eval Order SARS-CoV-2 (PCR) (Negative) Influenza Type A (PCR) (Neg) Influenza Type B (PCR) (Neg) RSV (RT-PCR) (Neg) 06/06/20 06/06/20 06/06/20 Range/Units 06:37 06:02 06:02 WBC (4.8-10.8) K/uL RBC (4.7-6.1) M/uL Hgb (14.0-18.0) g/dL Hct (42-52) % MCV (80-100) fL MCH (25-34) pg MCHC (32-36) g/dL RDW Std Deviation (36.4-46.3) fL RDW Coeff of Fely (11.5-14.5) % Plt Count (130-400) K/uL MPV (7.4-10.4) fL Immature Gran % (Auto) % Neut % (Auto) % Lymph % (Auto) % [place] % (Auto) % Eos % (Auto) % Baso % (Auto) % Neut # (Auto) (1.4-6.5) K/uL Lymph # (Auto) (1.2-3.4) K/uL [place] # (Auto) (0.11-0.59) K/uL Eos # (Auto) (0-0.5) K/uL Baso # (Auto) (0-0.2) K/uL Immature Gran # (Auto) (0.00-0.02) K/uL PT (9.0-12.0) Seconds INR (0.9-1.1) APTT (21.0-31.0) Seconds PTT Ratio Sodium (136-145) mmol/L Potassium (3.5-5.1) mmol/L Chloride (98-107) mmol/L Carbon Dioxide (21-32) mmol/L Anion Gap (3-11) BUN (7-18) mg/dl Creatinine (0.6-1.4) mg/dl Est Cr Clr Drug Dosing ml/min Est GFR ( Amer) Est GFR (Non-Af Amer) BUN/Creatinine Ratio (10-20) Glucose (70-99) mg/dl Lactate 0.9 (0.4-2.0) mmol/L Calcium (8.5-10.1) mg/dl Magnesium (1.8-2.4) mg/dl Total Bilirubin (0.2-1) mg/dl AST (15-37) U/L ALT (12-78) U/L Alkaline Phosphatase (45-117) U/L Troponin I (0-0.045) ng/ml Total Protein (6.4-8.2) gm/dl Albumin (3.4-5.0) gm/dl Globulin (2.5-4.0) gm/dl Albumin/Globulin Ratio (0.9-2) Lipase (73-393) U/L COVID-19 Eval Order CovFluRsv at [facility] SARS-CoV-2 (PCR) NEGATIVE (Negative) Influenza Type A (PCR) Negative (Neg) Influenza Type B (PCR) Negative (Neg) RSV (RT-PCR) Negative (Neg) Diagnostic Findings Chest X-Ray 06/06/20 06:06 XR chest 1V portable CLINICAL HISTORY: Shortness of breath COMPARISON STUDY: 10/31/2018 FINDINGS: The heart remains enlarged. There is mild interstitial thickening similar to the prior study. There is no focal pulmonary consolidation. There are no pleural effusions.[ IMPRESSION: Cardiomegaly and mild interstitial thickening similar to the prior study. No evidence of lobar consolidation ACT 112: Negative or not required by law. Electronically signed by: Oscar Blunt M.D. 06/06/2020 6:58 AM Abdomen/Pelvis CT 06/06/20 07:15 CT SCAN OF THE ABDOMEN AND PELVIS WITHOUT CONTRAST CLINICAL HISTORY: Severe abdominal pain. COMPARISON STUDY: 05/22/2014 TECHNIQUE: CT scan of the abdomen and pelvis was performed from the lung bases to the proximal femurs. Images are reviewed in the axial, sagittal, and coronal planes. IV contrast was not administered for this examination. A dose lowering technique was utilized adhering to the principles of ALARA. CT DOSE: 1129.23 mGycm FINDINGS: Lower chest: There are right basilar airspace opacities, likely atelectatic although an infectious/inflammatory process could appear similar. There are lingular atelectatic changes. Liver: The liver is enlarged. There is a slightly nodular serosal surface-based the possibility of cirrhosis. Gallbladder: The gallbladder is distended. There are gallstones. There is pericholecystic edema. The findings are suspicious for acute cholecystitis Spleen: Enlarged measuring 16 cm Pancreas: Unremarkable. Adrenal glands: Unremarkable. Kidneys: No renal, ureteral, or bladder calculi are visualized Bowel: There are no transition zones indicate bowel obstruction. There is no evidence of acute diverticulitis. There is no convincing evidence of acute appendicitis given the limitations of a study performed without intravenous or oral contrast Peritoneum: There is no free intraperitoneal air. There is trace perihepatic fluid Vasculature: The abdominal aorta is normal in course and caliber. Adenopathy: None. Pelvic viscera: The bladder, and pelvic viscera are unremarkable. Skeletal structures: There is bilateral L5 spondylolysis. There is grade 1 spondylolisthesis of L5 on S1. IMPRESSION: 1. Cholelithiasis. Distended gallbladder. Pericholecystic infiltration. The findings are viewed as suspicious for acute cholecystitis. Surgical consultation recommended. 2. Suspected hepatic cirrhosis with hepatosplenomegaly. ACT 112: Negative or not required by law. Electronically signed by: Oscar Blunt M.D. 06/06/2020 7:[address] SCAN OF THE ABDOMEN AND PELVIS WITHOUT CONTRAST CLINICAL HISTORY: Severe abdominal pain. COMPARISON STUDY: 05/22/2014 TECHNIQUE: CT scan of the abdomen and pelvis was performed from the lung bases to the proximal femurs. Images are reviewed in the axial, sagittal, and coronal planes. IV contrast was not administered for this examination. A dose lowering technique was utilized adhering to the principles of ALARA. CT DOSE: 1129.23 mGycm FINDINGS: Lower chest: There are right basilar airspace opacities, likely atelectatic although an infectious/inflammatory process could appear similar. There are lingular atelectatic changes. Liver: The liver is enlarged. There is a slightly nodular serosal surface-based the possibility of cirrhosis. Gallbladder: The gallbladder is distended. There are gallstones. There is pericholecystic edema. The findings are suspicious for acute cholecystitis Spleen: Enlarged measuring 16 cm Pancreas: Unremarkable. Adrenal glands: Unremarkable. Kidneys: No renal, ureteral, or bladder calculi are visualized Bowel: There are no transition zones indicate bowel obstruction. There is no evidence of acute diverticulitis. There is no convincing evidence of acute appendicitis given the limitations of a study performed without intravenous or oral contrast Peritoneum: There is no free intraperitoneal air. There is trace perihepatic fluid Vasculature: The abdominal aorta is normal in course and caliber. Adenopathy: None. Pelvic viscera: The bladder, and pelvic viscera are unremarkable. Skeletal structures: There is bilateral L5 spondylolysis. There is grade 1 spondylolisthesis of L5 on S1. IMPRESSION: 1. Cholelithiasis. Distended gallbladder. Pericholecystic infiltration. The findings are viewed as suspicious for acute cholecystitis. Surgical consultation recommended. 2. Suspected hepatic cirrhosis with hepatosplenomegaly. ECG Additional Comments: ECG on 06/06/2020 at 6:01 AM with normal sinus rhythm, rate 81, no ischemic changes Code Status & VTE Plan Code Status Full code, however patient would not want tracheostomy if had prolonged period of ventilation VTE Prophylaxis Plan VTE Prophylaxis will be ordered: Yes PG Care Time/CCT Total # of Minutes Spent Total Time Spent with Patient: Total time spent is greater than 50% in coordination of care (as documented) at patient's floor/unit and/or counseling patient: Coding Level of Care Code 12184 Initial Inpt Care Lvl 3 Diagnoses Acute cholecystitis K81.0 Acute renal failure N17.9 Acute renal failure type: unspecified Sepsis A41.9 DM type 2 (diabetes mellitus, type 2) E11.9 COPD (chronic obstructive pulmonary disease) J44.9 COPD type: unspecified COPD Hypoxia R09.02 Memory loss R41.3 Arthralgia of multiple sites M25.50 Chronic pain G89.29 Anemia D64.9 Hypertension I10 DVT prophylaxis Z29.9 (1) Acute renal failure Acute renal failure type: unspecified Qualified Code(s): N17.9 - Acute kidney failure, unspecified (2) COPD (chronic obstructive pulmonary disease) COPD type: unspecified COPD Qualified Code(s): J44.9 - Chronic obstructive pulmonary disease, unspecified
[2020-06-06] MEDS ORDERED: PIPERACILLIN/TAZOBACTAM 3.375 GM in DEXTROSE 5% 100 ML IV SCH (08:15)
[2020-06-06] MEDS ORDERED: SODIUM CHLORIDE 0.9% 1000ML 1,000 ML IV ONE (08:16)
[2020-06-06] MEDS ORDERED: SODIUM CHLORIDE 0.9% 1000ML 1,000 ML IV SCH (08:30)
[2020-06-06 08:55] LABS: NT Pro B Type Natriuretic Pept 239 pg/ml (0-900)
[2020-06-06] MEDS ORDERED: FLUTICASONE/VILANTEROL 100/25MCG 14 PUFFS/INHALER INH SCH (09:00)
[2020-06-06] MEDS ORDERED: UMECLIDINIUM BROMIDE 62.5MCG/BLISTER 7 PUFFS/INHALER INH SCH (09:00)
[2020-06-06] MEDS ORDERED: PANTOprazole 40 MG in SYRINGE 0 ML IV SCH (09:00)
--- NOTE | 2020-06-06 09:09 | Anesthesiology Consultation ---
Date of Service June 06, 2020 Assessment & Plan Chart Review Chart Review: Acceptable Risk for Surgery (urgent procedure) History Surgery Operation Date: 06/06/20 09:15 Proposed Procedures p Laparoscopic Cholecystectomy - Celia Lion MD Height/Weight Height: 5 ft 11 in Weight: 131 kg Allergies Allergy/AdvReac Type Severity Reaction Status Date / Time acesulfame Allergy Severe SEVERE Verified 11/19/19 08:46 RASH & VOMIT buprenorphine Allergy Severe SEVERE Verified 11/19/19 08:46 RASH & VOMIT naloxone Allergy Severe SEVERE Verified 11/19/19 08:46 RASH & VOMIT Suboxone Allergy Severe SEVERE Verified 09/14/17 05:40 RASH & VOMIT Sulfa (Sulfonamide Allergy Intermediate RASH / Verified 11/19/19 08:46 Antibiotics) ITCHINESS acetaminophen Allergy Unknown SEE NOTES Verified 11/19/19 08:46 quetiapine [From Seroquel] AdvReac Intermediate Nightmare Unverified 11/19/19 08:46 amitriptyline AdvReac Unknown Unknown Unverified 11/19/19 08:46 morphine AdvReac Unknown Unknown Unverified 11/19/19 08:46 Medications Home Medications Medication Instructions Recorded Confirmed Last Taken alprostadil 20 mcg INTRA-CAVERNOSAL UD PRN 10/31/18 10/15/19 Unknown artificial saliva (cmce-lytes) 1 spray PO 5XD PRN 10/31/18 10/15/19 Unknown budesonide-formoterol 2 puff INHALATION BID 10/31/18 10/15/19 10/31/18 buprenorphine HCl 8 mg SUBLINGUAL BID 10/31/18 08/20/19 10/31/18 gabapentin 600 mg PO TID 10/31/18 08/20/19 10/31/18 mesalamine with cleansing wipe 4 g HI HS 10/31/18 10/15/19 10/30/18 pantoprazole 40 mg PO BID 10/31/18 10/15/19 10/31/18 pramoxine 1 applic HI BID 10/31/18 10/15/19 10/31/18 prazosin 4 mg PO HS 10/31/18 08/20/19 10/30/18 propranolol 80 mg PO BID 10/31/18 10/15/19 10/31/18 sennosides 8.6 mg PO BID 10/31/18 10/15/19 10/31/18 tiotropium bromide 1 cap INHALATION DAILY 10/31/18 10/15/19 10/31/18 torsemide 40 mg PO QAM 10/31/18 10/15/19 10/31/18 triamcinolone acetonide 1 applic TOPICAL BID 10/31/18 10/15/19 10/31/18 alogliptin 12.5 mg tablet 12.5 mg PO DAILY 08/20/19 08/20/19 Unknown hydroxyzine HCl 25 mg tablet 50 mg PO BID tab 08/20/19 08/20/19 Unknown metformin 500 mg tablet 500 mg PO QID tab 08/20/19 08/20/19 Unknown naloxone 4 mg/actuation nasal spray 4 mg INTNAS Q2M PRN 08/20/19 08/20/19 Unknown sertraline 100 mg tablet 50 mg PO DAILY tab 08/20/19 08/20/19 Unknown trazodone 50 mg tablet 50 mg PO HS PRN tab 08/20/19 08/20/19 Unknown Past Medical History Medical History (Updated 06/06/20 @ 09:14 by Doc Sheldon MD) Acute renal failure Anemia Arthralgia of multiple sites Bullous pemphigoid Chronic pain Chronic pain COPD (chronic obstructive pulmonary disease) DM type 2 (diabetes mellitus, type 2) History of intravenous drug abuse Hypertension Hypoxia Memory loss MRSA infection Neuropathy Obesity Rheumatoid arthritis Past Family History Family History Other Hypertension Past Surgical History Surgical History History of incision and drainage Social History Smoking Status: Former smoker Hx Alcohol Use: No Hx Substance Use: No Physical Exam Vital Signs Last Vital Signs Temp 37.6 C H 06/06/20 05:50 Pulse 77 06/06/20 08:38 Resp 19 06/06/20 08:38 BP 89/53 L 06/06/20 08:38 Pulse Ox 95 06/06/20 08:38 Testing Laboratory Results 06/06/20 Unknown 06/06/20 Unknown PT 10.1 Seconds (9.0-12.0) 06/06/20 Unknown INR 1.0 (0.9-1.1) 06/06/20 Unknown APTT 25.0 Seconds (21.0-31.0) 06/06/20 Unknown Electrocardiogram Date: 06/06/20 Findings: + NSR @ (81) Chest X-Ray Date: 06/06/20 Findings: + cardiomegaly (interstitial thickening, no consolidation or effusion) Echocardiogram Date: 05/08/17 EF: 65-70% Valvular Disease: + no significant valvular disease
[2020-06-06] MEDS ORDERED: ACETAMINOPHEN 1,000 MG/100 ML VIAL IV PRN ×2 (09:49→10:43)
--- NOTE | 2020-06-06 10:22 | Critical Care Consultation ---
Date of Consultation June 06, 2020 Assessment & Plan (1) Sepsis: Chest x-ray 06/06/2020 personally reviewed: Portable 7, fair inspiratory effort, mild blunting of bilateral costophrenic angles, increased cardiac silhouette, increased hilar vascular markings. No clear infiltrate appreciated CT abdomen pelvis 06/06/2020: Dependent atelectasis bilateral lower lobes, pericholecystic infiltration. EKG 06/06/2020: Normal sinus rhythm, left axis deviation, no ST-T wave changes appreciated. QTC 434 --Sepsis with septic shock Likely from acute cholecystitis with likely decrease p.o. intake Continue with Zosyn to cover for gram-negative and anaerobes Surgery on board Keep the patient n.p.o. Alk phos elevated at 166, follow GGT Lipase within normal limit Procalcitonin 9 COVID-19 PCR negative, influenza A/B negative Give IV fluids at least 30 mL/kg and then reassess for the need of vasopressors --Acute renal failure Creatinine 4 at time of presentation BUN/creatinine ratio: 8.9 looks like intrinsic Give IV fluids Strict in and out Follow-up urine lites Avoid nephrotoxic medications --Chronic hypoxic respiratory failure Denying any issues with breathing Titrate down O2 to keep O2 saturation between 88-92% --COPD with emphysema Continue with Breo and Incruse Not in exacerbation --Morbid obesity with possible DANIELA/OHS BiPAP nightly and as needed shortness of breath Polysomnography as an outpatient --Diabetes type 2 ICU hyperglycemia protocol --History of hypertension Hold blood pressure medication --Prophylaxis VTE: IPC's GI: Protonix Lines: Peripheral Diet: N.p.o. Plan: Surgery came and evaluated the patient. Recommend patient to be transferred for IR guided cholecystostomy. Patient has been accepted at [facility]. Awaiting bed Continue with IV fluids. Blood pressure has been improving. Patient is awake alert oriented denies any complaints. Continue with Zosyn to cover for gram-negative's and anaerobes Pain medication to control pain. BiPAP nightly and as needed shortness of breath Sticking out Follow-up urine lites. I have personally spent 65 minutes of critical care time in the direct management of this patient. This is a life/limb threatening event. This includes time spent evaluating patient, direct bedside care, chart review, placing orders, interpretation of diagnostic studies, discussion with consultants, patient, and family members, as well as other required patient management activities. This time is exclusive of all separately billable procedures, and teaching time and separate from and in addition to any other critical care service time. Please note the above document was generated using voice recognition software. It may contain grammatical, syntax or spelling errors. (2) Hypotension: (3) COPD (chronic obstructive pulmonary disease): (4) Acute renal failure: (5) Rheumatoid arthritis: (6) Acute cholecystitis: History of Present Illness Attending Physician: Mary Carlson MD History of Present Illness 65-year-old male presented to the hospital with complaints of abdominal pain nausea and fever at home. Past medical history: COPD on 5 L nasal cannula at home, obesity, hypertension, GERD, chronic pain on buprenorphine In the ED patient was found to have creatinine of 4. Lactic acid was 0.9. CT abdomen pelvis was done which showed acute cholecystitis with pericholecystic inflammation. At the time of examination patient complained of abdominal pain. It was better controlled after getting medication He denies any shortness of breath. Denies any headache, no dizziness. No vomiting. Says that he has been urinating well. His appetite was decreased in the last couple of days but he still said that he was drinking and eating. No dysuria, positive bowel movements which were liquidy. Patient was saturating 98% on 5 L nasal cannula not in any respiratory distress. Social history: [id number] smoking history quit approximately 20 years ago, used to do heroin and cocaine snorting quit 20 years ago, heavy alcohol use in the past as well. No history of asthma in the family or personal Allergies Allergy/AdvReac Type Severity Reaction Status Date / Time acesulfame Allergy Severe SEVERE Verified 11/19/19 08:46 RASH & VOMIT buprenorphine Allergy Severe SEVERE Verified 11/19/19 08:46 RASH & VOMIT naloxone Allergy Severe SEVERE Verified 11/19/19 08:46 RASH & VOMIT Suboxone Allergy Severe SEVERE Verified 09/14/17 05:40 RASH & VOMIT Sulfa (Sulfonamide Allergy Intermediate RASH / Verified 11/19/19 08:46 Antibiotics) ITCHINESS acetaminophen Allergy Unknown SEE NOTES Verified 11/19/19 08:46 quetiapine [From Seroquel] AdvReac Intermediate Nightmare Unverified 11/19/19 08:46 amitriptyline AdvReac Unknown Unknown Unverified 11/19/19 08:46 morphine AdvReac Unknown Unknown Unverified 11/19/19 08:46 Home Medications Medication Instructions Recorded Confirmed Type alprostadil 20 mcg INTRA-CAVERNOSAL UD PRN 10/31/18 10/15/19 History artificial saliva (cmce-lytes) 1 spray PO 5XD PRN 10/31/18 10/15/19 History budesonide-formoterol 2 puff INHALATION BID 10/31/18 10/15/19 History buprenorphine HCl 8 mg SUBLINGUAL BID 10/31/18 08/20/19 History gabapentin 600 mg PO TID 10/31/18 08/20/19 History mesalamine with cleansing wipe 4 g FL HS 10/31/18 10/15/19 History pantoprazole 40 mg PO BID 10/31/18 10/15/19 History pramoxine 1 applic FL BID 10/31/18 10/15/19 History prazosin 4 mg PO HS 10/31/18 08/20/19 History propranolol 80 mg PO BID 10/31/18 10/15/19 History sennosides 8.6 mg PO BID 10/31/18 10/15/19 History tiotropium bromide 1 cap INHALATION DAILY 10/31/18 10/15/19 History torsemide 40 mg PO QAM 10/31/18 10/15/19 History triamcinolone acetonide 1 applic TOPICAL BID 10/31/18 10/15/19 History alogliptin 12.5 mg tablet 12.5 mg PO DAILY 08/20/19 08/20/19 History hydroxyzine HCl 25 mg tablet 50 mg PO BID tab 08/20/19 08/20/19 History metformin 500 mg tablet 500 mg PO QID tab 08/20/19 08/20/19 History naloxone 4 mg/actuation nasal spray 4 mg INTNAS Q2M PRN 08/20/19 08/20/19 History sertraline 100 mg tablet 50 mg PO DAILY tab 08/20/19 08/20/19 History trazodone 50 mg tablet 50 mg PO HS PRN tab 08/20/19 08/20/19 History Patient History Medical History (Updated 06/06/20 @ 11:08 by Ping Ordonez MD) Acute renal failure Anemia Arthralgia of multiple sites Bullous pemphigoid Chronic pain Chronic pain COPD (chronic obstructive pulmonary disease) DM type 2 (diabetes mellitus, type 2) History of intravenous drug abuse Hypertension Hypoxia Memory loss MRSA infection Neuropathy Obesity Rheumatoid arthritis Surgical History History of incision and drainage Family History Other Hypertension Social History Smoking Status: Former smoker Tobacco Type: Cigarettes Do You Dip or Chew Tobacco: No; Hx Alcohol Use: No Hx Substance Use: No Preferred Language: [place] Communication Ability: Effective Lockstitch Front Edge Tape Sewer Required: No Beliefs That Will Affect Care: None marital status: Current Living Situation: Spouse Feels Safe at Home: Yes Safety Concerns: Feels Safe At This Time Assistive Devices: Cane and Oxygen - Continuous Review of Systems Review of Systems: All systems reviewed & are unremarkable except as noted in HPI & below Physical Exam Physical Exam: Constitutional: No acute distress HEENT: EOMI, PERRLA, thick neck Respiratory system: Decreased air entry bilaterally, no wheeze, no rhonchi, positive crackles bilateral lower lobes CVS: S1-S2 positive, no murmurs or gallops, distant heart sounds Abdomen: Soft, positive right upper as well as right lower quadrant, no rebound, decreased bowel sounds, positive Bourne sign Extremities: +2 pulses bilaterally radialis/ dorsalis pedis, no cyanosis, +1 pitting edema bilateral lower extremity Neuro: Awake alert oriented x3 Psych: Normal mood and affect G/U: Positive Ruiz Tattoos all over the body. Skin: no rashes, warm and dry Lymphatic: no cervical or axillary lymphadenopathy Results & Data Results & Data ([facility]) Vital Signs (Past 12 Hours) Vital Signs Temp Pulse Resp BP Pulse Ox 06/06/20 08:38 77 19 89/53 L 95 06/06/20 08:17 77 20 108/68 96 06/06/20 08:00 79 19 94/47 L 92 06/06/20 07:56 76 23 99/61 L 93 06/06/20 07:45 77 17 86/50 L 94 06/06/20 07:44 75 18 93/45 L 94 06/06/20 07:43 74 17 82/43 L 92 06/06/20 07:15 75 22 96/53 L 95 06/06/20 07:00 79 25 H 102/59 L 92 06/06/20 06:26 79 20 99/55 L 95 06/06/20 06:00 82 22 90/38 L 94 06/06/20 05:58 95 06/06/20 05:57 82 18 93 06/06/20 05:50 37.6 C H 80 22 100/53 L 95 06/06/20 05:48 81 22 100/53 L 94 06/06/20 Unknown 06/06/20 Unknown Coding Level of Care Code Critical Care 1st 30-74 mins Diagnoses Sepsis A41.9 Hypotension I95.9 COPD (chronic obstructive pulmonary disease) J44.9 COPD type: unspecified COPD Acute renal failure N17.9 Acute renal failure type: unspecified Rheumatoid arthritis M06.9 Acute cholecystitis K81.0 Time Spent (min) 65 (1) COPD (chronic obstructive pulmonary disease) COPD type: unspecified COPD Qualified Code(s): J44.9 - Chronic obstructive pulmonary disease, unspecified (2) Acute renal failure Acute renal failure type: unspecified Qualified Code(s): N17.9 - Acute kidney failure, unspecified
[2020-06-06] MEDS ORDERED: GLUCAGON FOR INJ 1 MG VIAL SQ PRN (10:39)
[2020-06-06] MEDS ORDERED: CARBOHYDRATES FOR HYPOGLYCEMIA PO PRN (10:39)
[2020-06-06] MEDS ORDERED: ICU PROTOCOL FOR HYPERGLYCEMIA PRN (10:39)
[2020-06-06] MEDS ORDERED: DEXTROSE 50% 50 ML SYRINGE IV PRN (10:39)
[2020-06-06] MEDS ORDERED: GLUCOSE 40% GEL 15 GM TUBE PO PRN (10:39)
[2020-06-06] MEDS ORDERED: PHARMACY GLYCEMIC MGMT CONSULT STA (10:39)
[2020-06-06] MEDS ORDERED: GLUCOSE 10 TABS/TUBE PO PRN (10:39)
[2020-06-06] MEDS ORDERED: PIPERACILLIN/TAZOBACTAM 4.5 GM in DEXTROSE 5% 100 ML IV SCH ×2 (11:00→20:00)
[2020-06-06] MEDS ORDERED: SERTRALINE HCL 50 MG TABLET PO SCH (11:00)
--- NOTE | 2020-06-06 11:20 | Discharge Summary ---
Date of Service June 06, 2020 Admission HPI Per Admitting Provider This patient is a 65-year-old male with a history of obesity, HTN, DM 2, severe COPD on 5 L nasal cannula at home, lower extremity edema, GERD, chronic pain on buprenorphine, lower back pain, history of remote IV drug abuse, who presents to the ER with severe right-sided abdominal pain. He was seen at an outside ER 3 days ago and was told that he had cholelithiasis and a thickened gallbladder but was stable for discharge to home for outpatient follow-up with the surgeon. Today the pain became significantly worse. He denies nausea or vomiting, no diarrhea or bloody stools. He denies fevers or chills, no lightheadedness. He reports he has been drinking Gatorade and water but his urine amount has gone down from his usual. He did take his torsemide and losartan this morning. In the ER here, he was hypotensive in the 70s to 80s systolic which did respond to a gentle normal saline bolus of 500 mils up to systolics in the 90s to 100s. He was found to have acute kidney injury with a creatinine of 4, leukocytosis, lactate was normal, procalcitonin was elevated significantly at 9, and a CT of the abdomen/pelvis showed acute cholecystitis without evidence of choledocholithiasis. LFTs were actually normal except for mildly elevated alkaline phosphatase. Blood cultures were drawn. He was given IV Zosyn and urgent surgical consultation was obtained. General surgery saw the patient and was awaiting the results of the CT scan. The patient was admitted to the ICU for resuscitation. The surgeon came back later and advised transfer to tertiary care facility for consideration for percutaneous drain given acute kidney injury and poor respiratory status, felt to be a poor surgical candidate. Principal Diagnosis Acute cholecystitis, Sepsis with shock, GAUTAM Discharge Exam Constitutional WD/WN, vitals as above Eyes PERRL, conjunctivae normal, anicteric sclerae ENMT Ears: no hearing impairment Mouth: + oral mucosal abnormality (Extremely dry mucous membranes and tongue) Neck trachea midline, no thyromegaly (Obese neck) Respiratory + tachypneic (Mild) Auscultation: + crackles (Bibasilar); no rhonchi and no wheezes Cardiovascular Rate/Rhythm: regular rate and regular rhythm Heart Sounds: no murmur Vessels: dorsalis pedis pulses present (1+ bilaterally) Extremities: + edema (Trace pitting edema of the distal legs bilaterally); no calf tenderness Chest (Breasts) Chest: normal inspection of chest Gastrointestinal (Abdomen) Inspection/Auscultation: abdomen normal to inspection, + abdomen distended (Mild) and normal bowel sounds Percussion/Palpation: + abdomen tender (Exquisitely tender all in the right side of the abdomen with guarding) and abdomen soft (Soft on left side of abdomen); abdomen not rigid and no hernia Musculoskeletal Extremities: extremities normal to inspection; no cyanosis and no clubbing Skin no rashes, warm and dry Neurologic moves all extremities and awake; no focal motor deficits Psychiatric A+Ox3, euthymic affect Lymphatic no lymphedema Discharge Data Allergies Allergy/AdvReac Type Severity Reaction Status Date / Time acesulfame Allergy Severe SEVERE Verified 11/19/19 08:46 RASH & VOMIT buprenorphine Allergy Severe SEVERE Verified 11/19/19 08:46 RASH & VOMIT naloxone Allergy Severe SEVERE Verified 11/19/19 08:46 RASH & VOMIT Suboxone Allergy Severe SEVERE Verified 09/14/17 05:40 RASH & VOMIT Sulfa (Sulfonamide Allergy Intermediate RASH / Verified 11/19/19 08:46 Antibiotics) ITCHINESS acetaminophen Allergy Unknown SEE NOTES Verified 11/19/19 08:46 quetiapine [From Seroquel] AdvReac Intermediate Nightmare Unverified 11/19/19 08:46 amitriptyline AdvReac Unknown Unknown Unverified 11/19/19 08:46 morphine AdvReac Unknown Unknown Unverified 11/19/19 08:46 Consultations 06/06/20 08:03 ED Decision to Admit Stat 06/06/20 10:20 Consult Film Processor Stat 06/06/20 10:39 Consult General Surgery Routine Consult Film Processor Routine Procedures Performed Operation Date: 06/06/20 09:15 <No data on this case meets the specified criteria> Ordered Studies 06/06/20 07:15 CT abd pelvis wo con Stat Laboratory Results WBC 15.61 K/uL (4.8-10.8) H 06/06/20 Unknown RBC 3.56 M/uL (4.7-6.1) L 06/06/20 Unknown Hgb 10.6 g/dL (14.0-18.0) L 06/06/20 Unknown Hct 32.1 % (42-52) L 06/06/20 Unknown MCV 90.2 fL (80-100) 06/06/20 Unknown MCH 29.8 pg (25-34) 06/06/20 Unknown MCHC 33.0 g/dL (32-36) 06/06/20 Unknown RDW Std Deviation 51.7 fL (36.4-46.3) H 06/06/20 Unknown RDW Coeff of Fely 15.4 % (11.5-14.5) H 06/06/20 Unknown Plt Count 174 K/uL (130-400) 06/06/20 Unknown MPV 9.7 fL (7.4-10.4) 06/06/20 Unknown Immature Gran % (Auto) 0.3 % 06/06/20 Unknown Neut % (Auto) 85.9 % 06/06/20 Unknown Lymph % (Auto) 7.9 % 06/06/20 Unknown Whitley % (Auto) 4.9 % 06/06/20 Unknown Eos % (Auto) 0.9 % 06/06/20 Unknown Baso % (Auto) 0.1 % 06/06/20 Unknown Neut # (Auto) 13.42 K/uL (1.4-6.5) H 06/06/20 Unknown Lymph # (Auto) 1.23 K/uL (1.2-3.4) 06/06/20 Unknown Whitley # (Auto) 0.77 K/uL (0.11-0.59) H 06/06/20 Unknown Eos # (Auto) 0.14 K/uL (0-0.5) 06/06/20 Unknown Baso # (Auto) 0.01 K/uL (0-0.2) 06/06/20 Unknown Immature Gran # (Auto) 0.04 K/uL (0.00-0.02) H 06/06/20 Unknown PT 10.1 Seconds (9.0-12.0) 06/06/20 Unknown INR 1.0 (0.9-1.1) 06/06/20 Unknown APTT 25.0 Seconds (21.0-31.0) 06/06/20 Unknown PTT Ratio 1.0 06/06/20 Unknown Sodium 133 mmol/L (136-145) L 06/06/20 Unknown Potassium 4.6 mmol/L (3.5-5.1) 06/06/20 Unknown Chloride 99 mmol/L (98-107) 06/06/20 Unknown Carbon Dioxide 29 mmol/L (21-32) 06/06/20 Unknown Anion Gap 5.0 (3-11) 06/06/20 Unknown BUN 36 mg/dl (7-18) H 06/06/20 Unknown Creatinine 4.06 mg/dl (0.6-1.4) H 06/06/20 Unknown Est Cr Clr Drug Dosing 25.4 ml/min 06/06/20 Unknown Est GFR ( Amer) 16.9 06/06/20 Unknown Est GFR (Non-Af Amer) 14.6 06/06/20 Unknown BUN/Creatinine Ratio 8.9 (10-20) L 06/06/20 Unknown Glucose 141 mg/dl (70-99) H 06/06/20 Unknown Lactate 0.9 mmol/L (0.4-2.0) 06/06/20 06:37 Calcium 8.2 mg/dl (8.5-10.1) L 06/06/20 Unknown Magnesium 1.8 mg/dl (1.8-2.4) 06/06/20 Unknown Total Bilirubin 0.9 mg/dl (0.2-1) 06/06/20 Unknown AST 23 U/L (15-37) 06/06/20 Unknown ALT 16 U/L (12-78) 06/06/20 Unknown Alkaline Phosphatase 166 U/L (45-117) H 06/06/20 Unknown Troponin I < 0.015 ng/ml (0-0.045) 06/06/20 Unknown NT-Pro-B Natriuret Pep 239 pg/ml (0-900) 06/06/20 Unknown Total Protein 7.7 gm/dl (6.4-8.2) 06/06/20 Unknown Albumin 2.5 gm/dl (3.4-5.0) L 06/06/20 Unknown Globulin 5.2 gm/dl (2.5-4.0) H 06/06/20 Unknown Albumin/Globulin Ratio 0.5 (0.9-2) L 06/06/20 Unknown Lipase 34 U/L (73-393) L 06/06/20 Unknown Procalcitonin 9.03 ng/ml (0-0.5) H 06/06/20 Unknown COVID-19 Eval Order [facility] at [facility] 06/06/20 06:02 SARS-CoV-2 (PCR) NEGATIVE (Negative) 06/06/20 06:02 Influenza Type A (PCR) Negative (Neg) 06/06/20 06:02 Influenza Type B (PCR) Negative (Neg) 06/06/20 06:02 RSV (RT-PCR) Negative (Neg) 06/06/20 06:02 Impressions Chest X-Ray 06/06/20 06:06 XR chest 1V portable CLINICAL HISTORY: Shortness of breath COMPARISON STUDY: 10/31/2018 FINDINGS: The heart remains enlarged. There is mild interstitial thickening similar to the prior study. There is no focal pulmonary consolidation. There are no pleural effusions.[ IMPRESSION: Cardiomegaly and mild interstitial thickening similar to the prior study. No evidence of lobar consolidation ACT 112: Negative or not required by law. Electronically signed by: Oscar Blunt M.D. 06/06/2020 6:58 AM Abdomen/Pelvis CT 06/06/20 07:15 CT SCAN OF THE ABDOMEN AND PELVIS WITHOUT CONTRAST CLINICAL HISTORY: Severe abdominal pain. COMPARISON STUDY: 05/22/2014 TECHNIQUE: CT scan of the abdomen and pelvis was performed from the lung bases to the proximal femurs. Images are reviewed in the axial, sagittal, and coronal planes. IV contrast was not administered for this examination. A dose lowering technique was utilized adhering to the principles of ALARA. CT DOSE: 1129.23 mGycm FINDINGS: Lower chest: There are right basilar airspace opacities, likely atelectatic although an infectious/inflammatory process could appear similar. There are lingular atelectatic changes. Liver: The liver is enlarged. There is a slightly nodular serosal surface-based the possibility of cirrhosis. Gallbladder: The gallbladder is distended. There are gallstones. There is pericholecystic edema. The findings are suspicious for acute cholecystitis Spleen: Enlarged measuring 16 cm Pancreas: Unremarkable. Adrenal glands: Unremarkable. Kidneys: No renal, ureteral, or bladder calculi are visualized Bowel: There are no transition zones indicate bowel obstruction. There is no evidence of acute diverticulitis. There is no convincing evidence of acute appendicitis given the limitations of a study performed without intravenous or oral contrast Peritoneum: There is no free intraperitoneal air. There is trace perihepatic fluid Vasculature: The abdominal aorta is normal in course and caliber. Adenopathy: None. Pelvic viscera: The bladder, and pelvic viscera are unremarkable. Skeletal structures: There is bilateral L5 spondylolysis. There is grade 1 spondylolisthesis of L5 on S1. IMPRESSION: 1. Cholelithiasis. Distended gallbladder. Pericholecystic infiltration. The findings are viewed as suspicious for acute cholecystitis. Surgical consultation recommended. 2. Suspected hepatic cirrhosis with hepatosplenomegaly. ACT 112: Negative or not required by law. Electronically signed by: Oscar Blunt M.D. 06/06/2020 7:54 AM Hospital Course (1) Acute cholecystitis: Presents with acute cholecystitis, hypotension, significantly elevated procalcitonin, tachypnea, leukocytosis, but lactate normal, no fever here. CT abdomen/pelvis confirms acute cholecystitis. Only alkaline phosphatase is elevated but LFTs otherwise are normal, no suggestion of choledocholithiasis -Admitted to intensive care unit given hypotension, acute kidney injury and sepsis -Given acute kidney injury, chronic hypoxia requiring 5 L with some mild increased respiratory insufficiency, general surgery saw the patient and recommended transfer for percutaneous drainage of the gallbladder -Continue Zosyn -Continue IV fluids for resuscitation -Pain control with IV Tylenol, avoid opioids at this time due to hypotension -We will contact [facility] in [place] for transfer-accepting physician is Dr. Mendez -Follow blood cultures -Follow CBC, CMP, magnesium, phosphorus, procalcitonin -Keep n.p.o. (2) Acute renal failure: Baseline creatinine is 1 and creatinine here is 4 Likely secondary to ATN from hypotension and sepsis as well as prerenal from dehydration due to acute cholecystitis Also in the setting of taking torsemide and losartan at home Fortunately potassium and serum bicarbonate are within normal limits -Hold home torsemide and losartan -Give resuscitative IV fluids now with caution giving respiratory status -Follow serial BMP -He is making urine, Place Ruiz catheter Consider nephrology consultation (3) Sepsis: As above, secondary to acute cholecystitis Resuscitated with IV fluids, continue with IV antibiotics Following blood cultures May need pressors if blood pressure remains low after IV fluid resuscitation Defer to ICU for this (4) DM type 2 (diabetes mellitus, type 2): With mild hyperglycemia here upon admission Insulin sliding scale with Accu-Cheks every 6 hours while n.p.o. Check hemoglobin A1c Holding home p.o. meds (5) COPD (chronic obstructive pulmonary disease): On chronically 5 L nasal cannula at home with some increased tachypnea here secondary to pain and sepsis Continue supplemental O2 to keep pulse ox greater than 88% Continue home inhalers Albuterol as needed (6) Hypoxia: Chronic respiratory failure with hypoxia on 5 L nasal cannula as above (7) Memory loss: Mild cognitive impairment Supportive care (8) Arthralgia of multiple sites: Is on home buprenorphine-hold this for now (9) Chronic pain: Hold home buprenorphine as above Hold home gabapentin for acute kidney injury (10) Anemia: Hemoglobin is 10, normocytic Follow CBC (11) Hypertension: Blood pressures low as above Holding home torsemide and losartan (12) DVT prophylaxis: SCDs only in case of need for procedure today Disposition-admit to ICU but now transferring to tertiary care facility at [facility] FULL CODE but would not want tracheostomy if prolonged ventilation required Total Time Total Time Spent Total Time Spent (In Minutes): 60 min Total Time Includes: Examination of the Patient, Discharge Planning, Medication Reconciliation and Communication With Other Providers (Surgery, Film Processor) Discharge Plan Discharge Items Reason For Visit: ACUTE CHOLECYSITIS, SEPTIC SHOCK, GAUTAM Follow-up/Referrals: Doc Morejon MD [Primary Care Provider] - Medications and DC Order Prescriptions: No Action sertraline 100 mg tablet 50 mg PO DAILY RF: 0 trazodone 50 mg tablet 50 mg PO HS PRN (Reason: sleep) RF: 0 metformin 500 mg tablet 500 mg PO QID RF: 0 naloxone 4 mg/actuation spray,non-aerosol 4 mg INTNAS Q2M PRNRF: 0 alogliptin 12.5 mg tablet 12.5 mg PO DAILY RF: 0 sennosides 8.6 mg Tablet 8.6 mg PO BID RF: 0 propranolol 80 mg Tablet 80 mg PO BID RF: 0 torsemide 20 mg Tablet 40 mg PO QAM RF: 0 triamcinolone acetonide 0.5 % Cream 1 applic TOPICAL BID RF: 0 pantoprazole 40 mg Tablet,Delayed Release (Dr/Ec) 40 mg PO BID RF: 0 gabapentin 300 mg Capsule 600 mg PO TID RF: 0 alprostadil 20 mcg Kit 20 mcg INTRA-CAVERNOSAL UD PRN (Reason: Erectile Dysfunction) RF: 0 prazosin 2 mg Capsule 4 mg PO HS RF: 0 buprenorphine HCl 8 mg tablet, sublingual 8 mg sublingual BID RF: 0 tiotropium bromide 18 mcg Capsule, W/Inhalation Device 1 cap INHALATION DAILY RF: 0 pramoxine 1 % Foam 1 applic SD BID RF: 0 budesonide-formoterol 160-4.5 mcg/actuation Hfa Aerosol Inhaler 2 puff INHALATION BID RF: 0 mesalamine with cleansing wipe 4 gram/60 mL Enema Kit 4 g SD HS RF: 0 artificial saliva (cmce-lytes) [place] With Pump 1 spray PO 5XD PRN (Reason: Dry Mouth) RF: 0 hydroxyzine HCl 25 mg tablet 50 mg PO BID RF: 0 Admission Data Admit Date/Time: 06/06/20 08:28 Attending Provider: Mary Carlson Admit Provider: Mary Carlson Primary Care Provider: Doc Morejon Other Providers: Mary Carlson ; [facility] ; Ping Ordonez ; Celia Lion Coding Level of Care Code Admit/DC Same Day >8hr Level 3 Diagnoses Acute cholecystitis K81.0 Acute renal failure N17.9 Acute renal failure type: unspecified Sepsis A41.9 DM type 2 (diabetes mellitus, type 2) E11.9 COPD (chronic obstructive pulmonary disease) J44.9 COPD type: unspecified COPD Hypoxia R09.02 Memory loss R41.3 Arthralgia of multiple sites M25.50 Chronic pain G89.29 Anemia D64.9 Hypertension I10 DVT prophylaxis Z29.9
[2020-06-06] MEDS ORDERED: INSULIN ASPART 100 UNITS/ML 3 ML PEN SC SCH (12:00)
[2020-06-06] MEDS ORDERED: PHARMACY GLYCEMIC MGMT CONSULT SCH (12:30)
[2020-06-06 12:34] LABS: Calcium 8.1 mg/dl (8.5-10.1); Creatinine Clr Calc Pharmacy 27.1 ml/min; Est GFR (African American) 17.8; Est GFR (Non-African American) 15.3; Potassium 4.1 mmol/L (3.5-5.1)
[2020-06-06 12:45] LABS: Appearance Urine Turbid (Clear); Bacteria Urine Automated Negative (Negative); Blood Urine Trace (Negative); Color Urine Dark Yellow; Epithelial Cell Urine Auto >30 /lpf (0-5); Glucose Urine UA Negative (Negative); Ketones Urine Trace (Negative); Leukocyte Esterase Urine 1+ (Negative); Nitrite Urine Positive (Negative); Protein Urine 1+ (Negative); Specific Gravity Urine 1.029 (1.000-1.030); Urobilinogen Urine Negative (Negative)
[2020-06-06 12:56] LABS: Bilirubin Urine 1+ (Negative)
[2020-06-06 13:17] LABS: Chloride Random Urine < 10 mmol/L; Potassium Random Urine 49.9 mmol/L; Sodium Random Urine 16 mmol/L; Uric Acid Urine Random 45.5 mg/dl
[2020-06-06] MEDS ORDERED: PIPERACILLIN/TAZOBACTAM 4.5 GM in DEXTROSE 5% 100 ML IV STA (13:18)
[2020-06-06 13:28] LABS: RBC Urine Automated 0-4 /hpf (0-4)
[2020-06-06 13:29] LABS: Calcium Oxalate Crystals Urine Present (None Prsent)
[2020-06-06] MEDS ORDERED: HYDROmorphone INJ 0.5 MG/0.5 ML SYR IV STA (13:53)
--- NOTE | 2020-06-06 16:19 | Electrocardiogram Report ---
Test Reason : Blood Pressure : / mmHG Vent. Rate : 081 BPM Atrial Rate : 081 BPM P-R Int : 162 ms QRS Dur : 108 ms QT Int : 374 ms P-R-T Axes : 058 -21 044 degrees QTc Int : 434 ms Poor data quality, interpretation may be adversely affected Normal sinus rhythm Normal ECG When compared with ECG of 21-JUN-2016 08:38, No significant change was found Confirmed by Reece Ramos ([id number]) on 06/06/2020 4:19:12 PM Referred By: REFERRED SELF Confirmed By:Peewee Ramos
--- NOTE | 2020-06-09 18:05 | Pharmacy Report ---
ED Pharmacist Culture FollowUP - Culture Follow Up Note Date of Service: June 09, 2020 Notes:: GPC isolated from aerobic bottle only of one of two blood cultures obtained on 06/06 (not MSSA nor MRSA per PCR results). This result was routed to the ED instead of to the [facility] [place] team, but as the patient was transferred, communication to [facility] was all that was required. I contacted [facility] and spoke w RN taking care of the patient (Amy). I provided a verbal report of the above and then faxed the culture results and PCR results to [facility] [id number] , read back x1, fax confirmation received.
== END 2020-06-06 14:15 | disposition short-term general hospital (02) | DRG 871 ==
LOC: ED 05:40 → 1E 08:28

== ENCOUNTER 2020-07-25 15:13 | Inpatient (IN) ==
--- NOTE | 2020-07-25 16:23 | Emergency Department Note ---
Impression & Plan [facility] ED Provider Note INFORMANT: Patient ED PROVIDER(S): Martin Guevara MD CHIEF COMPLAINT: Abnormal labs PLAN: Disposition: Admitted Condition: Good Outpatient prescription management: none Referral: None MEDICAL DECISION MAKING: The patient presented to emergency department because of abnormal blood cultures. He had blood cultures done and was empirically placed on cefdinir on his last visit. The blood cultures unfortunately have started to grow yeast out of both bottles. The patient has not had any major issues with his cholecystostomy tube. He has not had any fevers reported today. He had repeat cultures performed. I discussed the case with the ED pharmacist and caspofungin was elected to be used as speciation has not been obtained. Consulted with of the [facility]. [facility]. I did consult with [facility] infectious disease, Dr. Gutierres. She agreed with the caspofungin. Recommended a transthoracic echo to evaluate for pathology. If this was abnormal she recommended a LINDSAY. She felt that the patient can be managed here given the fact that his tube is functioning, blood work is unremarkable, and cultures showing these can be treated with caspofungin. She is available for consultation all weekend. I did inform and he felt comfortable for the patient to be admitted here. The patient then was seen by Dr. Todd Elizalde of the [facility] service. Patient was evaluated in the ER for further management. Triage Nursing notes reviewed and agree them. Vital Signs: reviewed and remarkable for no significant abnormalities Differential diagnosis: Viral syndrome, otitis, pharyngitis, pneumonia, influenza, meningitis, urinary tract infection, sepsis, bacteremia, as well as other pathologies. Diagnostics interpreted by me: ECG: none Cardiac Monitoring: Cardiac monitoring ordered by me: The patient was placed on continuous cardiac monitoring and observed. It revealed a normal sinus rhythm at 83 beats per minute without ectopy or evidence of dysrhythmia. Imaging studies: Deferred HPI: The patient is a 65 year old male who presents to the Emergency Room with positive blood cultures. This was found today and is from the 07/23 ED visit for fever. He was placed on cefdinir. The patient also notes the following associated symptoms, chronic RUQ abdominal pain. Has a cholecystostomy tube. The patient has no relieving factors. Current pain is rated as 3/10. Pt denies LOC, headache, chills, diaphoresis, visual changes, neck pain, chest pain, breathing difficulties, nausea, vomiting, back pain, melena, hematochezia, uri nary symptoms, numbness, weakness, lymphadenopathy, rash, or other complaints. ROS: See above HPI for pertinent positives & negatives. A total of 10 systems reviewed and were otherwise negative. PAST MEDICAL HISTORY:See Below , cholecystitis PAST SURGICAL HISTORY:See Below, cholecystostomy tube FAMILY HISTORY:See Below SOCIAL HISTORY:See Below, retired HOME MEDICATIONS:See Below ALLERGIES:See Below VITALS:See Below PHYSICAL EXAMINATION: GENERAL: Awake, alert, well-appearing, in no distress HENT: Normocephalic, atraumatic. Oropharynx unremarkable. EYES: Normal conjunctiva. Sclera non-icteric. NECK: Inspection normal. Non-tender. Supple. No nuchal rigidity. FROM. No masses. RESPIRATORY: Clear to auscultation. No wheezes. No rales. Normal respiratory effort. CARDIAC: Normal rate. Normal rhythm. No murmurs. No rubs. Extremities warm and well perfused. Pulses equal. No JVD. GI: Soft, non-distended. RUQ sanjay tube and mild tenderness to palpation. No rebound or guarding. No masses. RECTAL: Deferred. MUSCULOSKELETAL: Atraumatic. Chest examination reveals no tenderness. The back is symmetrical on inspection without obvious abnormality. There is no CVA tenderness to palpation. No joint edema. LOWER EXTREMITIES: Calves are equal size bilaterally and non-tender. No edema. No discoloration. NEURO: Normal sensorium. No sensory or motor deficits noted. SKIN: No rash or jaundice noted. Martin Guevara MD Past Med/Surg History Medical History Acute renal failure Anemia Arthralgia of multiple sites Bullous pemphigoid Chronic pain Chronic pain COPD (chronic obstructive pulmonary disease) DM type 2 (diabetes mellitus, type 2) History of intravenous drug abuse Hypertension Hypoxia Memory loss MRSA infection Neuropathy Obesity Rheumatoid arthritis Surgical History History of incision and drainage Family History Other Hypertension Social History (Updated 07/25/20 @ 20:24 by Jian Lynch MD) Smoking Status: Former smoker Tobacco Type: Cigarettes packs per day: 2; Years Smoked: 20; Hx Alcohol Use: No Hx Substance Use: No Preferred Language: Urdu Communication Ability: Effective Process Controls Technician Required: No Beliefs That Will Affect Care: None marital status: Current Living Situation: Spouse Feels Safe at Home: Yes Assistive Devices: Cane and Oxygen - Continuous Allergies Allergies Allergy/AdvReac Type Severity Reaction Status Date / Time acesulfame Allergy Severe SEVERE Verified 07/25/20 15:30 RASH & VOMIT buprenorphine Allergy Severe SEVERE Verified 07/25/20 15:30 RASH & VOMIT naloxone Allergy Severe SEVERE Verified 07/25/20 15:30 RASH & VOMIT Sulfa (Sulfonamide Allergy Intermediate RASH / Verified 07/25/20 15:30 Antibiotics) ITCHINESS acetaminophen Allergy Unknown SEE NOTES Verified 07/25/20 15:30 quetiapine [From Seroquel] AdvReac Intermediate Nightmare Unverified 07/25/20 15:30 amitriptyline AdvReac Unknown Unknown Unverified 07/25/20 15:30 morphine AdvReac Unknown Unknown Unverified 07/25/20 15:30 Home Meds Home Medications Medication Instructions Recorded Confirmed artificial saliva (cmce-lytes) 1 spray PO 5XD PRN 10/31/18 07/25/20 gabapentin 900 mg PO BID 10/31/18 07/25/20 prazosin 4 mg PO HS 10/31/18 07/25/20 propranolol 80 mg PO BID 10/31/18 07/25/20 sennosides 8.6 mg PO BID PRN 10/31/18 07/25/20 torsemide 40 mg PO QAM 10/31/18 07/25/20 triamcinolone acetonide 1 applic TOPICAL BID 10/31/18 07/25/20 alogliptin 12.5 mg tablet 12.5 mg PO DAILY 08/20/19 07/25/20 sertraline 100 mg tablet 150 mg PO DAILY tab 08/20/19 07/25/20 trazodone 50 mg tablet 100 mg PO HS PRN tab 08/20/19 07/25/20 atorvastatin 20 mg PO HS 07/23/20 07/25/20 finasteride 5 mg PO DAILY 07/23/20 07/25/20 losartan 100 mg PO DAILY 07/23/20 07/25/20 niacin [Nicotinic Acid] 500 mg PO DAILY 07/23/20 07/25/20 pantoprazole 20 mg PO BID 07/23/20 07/25/20 Previous Rx's Medication Instructions Recorded cefdinir 300 mg PO BID 10 Days #20 cap 07/23/20 Results & Data (ED) Vital Signs Vital Signs - 24 hr 07/25/20 15:17 07/25/20 15:36 07/25/20 16:00 Temperature 37 C Temperature Source Temporal Artery Scan Pulse Rate 79 78 79 Pulse Rate from SpO2 Sensor 79 78 Pulse Strength [Dorsalis Pedis] Respiratory Rate 20 20 16 Respiratory Effort / Characteristics Respiratory Depth Respiratory Pattern Blood Pressure 136/75 Blood Pressure Mean 95 Blood Pressure Position Sitting Pulse Oximetry 89 L 95 96 Oxygen Delivery Method Nasal Cannula Oxygen Flow Rate 5 Sepsis Recent Fever Within 48 Hours No Sepsis New/Unexplained Change in Mental Status No Sepsis Action Taken by Nursing No Action Required 07/25/20 16:30 07/25/20 17:00 07/25/20 17:30 Temperature Temperature Source Pulse Rate 75 78 77 Pulse Rate from SpO2 Sensor Pulse Strength [Dorsalis Pedis] Respiratory Rate 14 23 25 H Respiratory Effort / Characteristics Respiratory Depth Respiratory Pattern Blood Pressure Blood Pressure Mean Blood Pressure Position Pulse Oximetry Oxygen Delivery Method Oxygen Flow Rate Sepsis Recent Fever Within 48 Hours Sepsis New/Unexplained Change in Mental Status Sepsis Action Taken by Nursing 07/25/20 17:34 07/25/20 18:00 07/25/20 19:00 Temperature Temperature Source Pulse Rate 76 75 Pulse Rate from SpO2 Sensor Pulse Strength [Dorsalis Pedis] Normal Respiratory Rate 22 24 Respiratory Effort / Characteristics Spontaneous SOB on Exertion Respiratory Depth Normal Respiratory Pattern Regular Blood Pressure 142/78 H 145/75 H Blood Pressure Mean 99 98 Blood Pressure Position Pulse Oximetry Oxygen Delivery Method Oxygen Flow Rate Sepsis Recent Fever Within 48 Hours Sepsis New/Unexplained Change in Mental Status Sepsis Action Taken by Nursing 07/25/20 19:08 07/25/20 19:30 07/25/20 20:00 Temperature Temperature Source Pulse Rate 77 78 80 Pulse Rate from SpO2 Sensor 77 78 Pulse Strength [Dorsalis Pedis] Respiratory Rate 19 20 24 Respiratory Effort / Characteristics Respiratory Depth Respiratory Pattern Blood Pressure 146/70 H 149/78 H 170/85 H Blood Pressure Mean 95 101 113 Blood Pressure Position Pulse Oximetry 98 98 96 Oxygen Delivery Method Nasal Cannula Nasal Cannula Nasal Cannula Oxygen Flow Rate 5 5 5 Sepsis Recent Fever Within 48 Hours Sepsis New/Unexplained Change in Mental Status Sepsis Action Taken by Nursing 07/25/20 20:30 07/25/20 21:00 Temperature Temperature Source Pulse Rate 81 83 Pulse Rate from SpO2 Sensor 81 84 Pulse Strength [Dorsalis Pedis] Respiratory Rate 22 25 H Respiratory Effort / Characteristics Respiratory Depth Respiratory Pattern Blood Pressure 180/94 H 191/89 H Blood Pressure Mean 122 123 Blood Pressure Position Pulse Oximetry 97 96 Oxygen Delivery Method Nasal Cannula Nasal Cannula Oxygen Flow Rate 5 5 Sepsis Recent Fever Within 48 Hours Sepsis New/Unexplained Change in Mental Status Sepsis Action Taken by Nursing Laboratory Data Result diagrams: 07/25/20 16:28 07/25/20 16:28 Lab Results 07/25/20 07/25/20 07/25/20 Range/Units 16:28 16:28 16:35 WBC 6.36 (4.8-10.8) K/uL RBC 3.17 L (4.7-6.1) M/uL Hgb 9.2 L (14.0-18.0) g/dL Hct 28.6 L (42-52) % MCV 90.2 (80-100) fL MCH 29.0 (25-34) pg MCHC 32.2 (32-36) g/dL RDW Std Deviation 47.0 H (36.4-46.3) fL RDW Coeff of Fely 14.0 (11.5-14.5) % Plt Count 156 (130-400) K/uL MPV 9.0 (7.4-10.4) fL Immature Gran % (Auto) 0.5 % Neut % (Auto) 81.4 % Lymph % (Auto) 6.9 % Kleberg % (Auto) 9.0 % Eos % (Auto) 2.0 % Baso % (Auto) 0.2 % Neut # (Auto) 5.18 (1.4-6.5) K/uL Lymph # (Auto) 0.44 L (1.2-3.4) K/uL Kleberg # (Auto) 0.57 (0.11-0.59) K/uL Eos # (Auto) 0.13 (0-0.5) K/uL Baso # (Auto) 0.01 (0-0.2) K/uL Immature Gran # (Auto) 0.03 H (0.00-0.02) K/uL Sodium 135 L (136-145) mmol/L Potassium 3.1 L (3.5-5.1) mmol/L Chloride 93 L (98-107) mmol/L Carbon Dioxide 38 H (21-32) mmol/L Anion Gap 4.0 (3-11) BUN 11 (7-18) mg/dl Creatinine 0.81 (0.6-1.4) mg/dl Est Cr Clr Drug Dosing Not Reportable Est GFR ( Amer) 108.9 ml/min Est GFR (Non-Af Amer) 93.9 ml/min BUN/Creatinine Ratio 14.1 (10-20) Glucose 139 H (70-99) mg/dl Calcium 9.0 (8.5-10.1) mg/dl Total Bilirubin 0.8 (0.2-1) mg/dl AST 17 (15-37) U/L ALT 15 (12-78) U/L Alkaline Phosphatase 153 H (45-117) U/L Total Protein 7.6 (6.4-8.2) gm/dl Albumin 2.5 L (3.4-5.0) gm/dl Globulin 5.1 H (2.5-4.0) gm/dl Albumin/Globulin Ratio 0.5 L (0.9-2) COVID-19 Eval Order Covid19 at [facility] SARS-CoV-2 (PCR) (Negative) 07/25/20 Range/Units 16:35 WBC (4.8-10.8) K/uL RBC (4.7-6.1) M/uL Hgb (14.0-18.0) g/dL Hct (42-52) % MCV (80-100) fL MCH (25-34) pg MCHC (32-36) g/dL RDW Std Deviation (36.4-46.3) fL RDW Coeff of Fely (11.5-14.5) % Plt Count (130-400) K/uL MPV (7.4-10.4) fL Immature Gran % (Auto) % Neut % (Auto) % Lymph % (Auto) % Kleberg % (Auto) % Eos % (Auto) % Baso % (Auto) % Neut # (Auto) (1.4-6.5) K/uL Lymph # (Auto) (1.2-3.4) K/uL Kleberg # (Auto) (0.11-0.59) K/uL Eos # (Auto) (0-0.5) K/uL Baso # (Auto) (0-0.2) K/uL Immature Gran # (Auto) (0.00-0.02) K/uL Sodium (136-145) mmol/L Potassium (3.5-5.1) mmol/L Chloride (98-107) mmol/L Carbon Dioxide (21-32) mmol/L Anion Gap (3-11) BUN (7-18) mg/dl Creatinine (0.6-1.4) mg/dl Est Cr Clr Drug Dosing Est GFR ( Amer) ml/min Est GFR (Non-Af Amer) ml/min BUN/Creatinine Ratio (10-20) Glucose (70-99) mg/dl Calcium (8.5-10.1) mg/dl Total Bilirubin (0.2-1) mg/dl AST (15-37) U/L ALT (12-78) U/L Alkaline Phosphatase (45-117) U/L Total Protein (6.4-8.2) gm/dl Albumin (3.4-5.0) gm/dl Globulin (2.5-4.0) gm/dl Albumin/Globulin Ratio (0.9-2) COVID-19 Eval Order SARS-CoV-2 (PCR) NEGATIVE (Negative) Administered Medications Discontinued Medications Caspofungin 70 mg/ Sodium (Chloride) 260 mls @ 260 mls/hr IV TODAY@[facility] Stop: 07/25/20 17:44 Last Infusion: 07/25/20 18:24 Dose: 0 mls/hr Documented by: [id number] Admin: 07/25/20 17:00 Dose: 260 mls/hr Documented by: [id number] Discharge Plan Visit Data Chief Complaint: Abnormal Labs/Diagnostic Testing Stated Complaint: ABDOMINAL PAIN ED Provider: Martin Guevara Discharge Problem: Fungemia Forms Stand Alone Forms: My [facility] [employer] Prescriptions Prescriptions: No Action sertraline 100 mg tablet 150 mg PO DAILY RF: 0 trazodone 50 mg tablet 100 mg PO HS PRN (Reason: sleep) RF: 0 alogliptin 12.5 mg tablet 12.5 mg PO DAILY RF: 0 sennosides 8.6 mg Tablet 8.6 mg PO BID PRN (Reason: Constipation) RF: 0 propranolol 80 mg Tablet 80 mg PO BID RF: 0 torsemide 20 mg Tablet 40 mg PO QAM RF: 0 triamcinolone acetonide 0.5 % Cream 1 applic TOPICAL BID RF: 0 gabapentin 300 mg Capsule 900 mg PO BID RF: 0 prazosin 2 mg Capsule 4 mg PO HS RF: 0 artificial saliva (cmce-lytes) Early With Pump 1 spray PO 5XD PRN (Reason: Dry Mouth) RF: 0 pantoprazole 20 mg Tablet,Delayed Release (Dr/Ec) 20 mg PO BID RF: 0 atorvastatin 20 mg Tablet 20 mg PO HS RF: 0 niacin [Nicotinic Acid] 500 mg Capsule, Extended Release 500 mg PO DAILY RF: 0 losartan 100 mg Tablet 100 mg PO DAILY RF: 0 finasteride 5 mg Tablet 5 mg PO DAILY RF: 0 cefdinir 300 mg capsule 300 mg PO BID 10 Days Qty: 20 RF: 0
[2020-07-25 16:44] LABS: Basophils # (auto) 0.01 K/uL (0-0.2); Basophils % (auto) 0.2 %; Eosinophils # (auto) 0.13 K/uL (0-0.5); Hematocrit (blood only) 28.6 % (42-52); Hemoglobin 9.2 g/dL (14.0-18.0); Immature Granulocytes # (auto) 0.03 K/uL (0.00-0.02); Immature Granulocytes % (auto) 0.5 %; Lymphocytes # (auto) 0.44 K/uL (1.2-3.4); Lymphocytes % (auto) 6.9 %; Mean Corpuscular Hgb Conc 32.2 g/dL (32-36); Mean Corpuscular Volume 90.2 fL (80-100); Monocytes # (auto) 0.57 K/uL (0.11-0.59); Neutrophils # (auto) 5.18 K/uL (1.4-6.5); Neutrophils % (auto) 81.4 %; Platelet Count 156 K/uL (130-400); Red Blood Count 3.17 M/uL (4.7-6.1); White Blood Count 6.36 K/uL (4.8-10.8)
[2020-07-25] MEDS ORDERED: CASPOFUNGIN 70 MG in SODIUM CHLORIDE 0.9% 250 ML IV SCH (16:45)
[2020-07-25 17:01] LABS: Alanine Aminotransferase 15 U/L (12-78); Albumin Level 2.5 gm/dl (3.4-5.0); Aspartate Aminotransferase 17 U/L (15-37); BUN Creatinine Ratio 14.1 (10-20); Blood Urea Nitrogen 11 mg/dl (7-18); Carbon Dioxide 38 mmol/L (21-32); Chloride 93 mmol/L (98-107); Est GFR (African American) 108.9 ml/min; Est GFR (Non-African American) 93.9 ml/min; Glucose 139 mg/dl (70-99); Potassium 3.1 mmol/L (3.5-5.1); Sodium 135 mmol/L (136-145)
[2020-07-25 17:04] LABS: Albumin Globulin Ratio 0.5 (0.9-2); Alkaline Phosphatase 153 U/L (45-117); Bilirubin,Total 0.8 mg/dl (0.2-1); Globulin 5.1 gm/dl (2.5-4.0); Total Protein 7.6 gm/dl (6.4-8.2)
--- NOTE | 2020-07-25 20:22 | History & Physical Report ---
Date of Service July 25, 2020 Assessment & Plan (1) Fungemia: 65 y/o M w/ severe copd on 5L O2 and recent cholecystostomy placement last month who presents w/ fungemia and recent fever. Stable from an infectious standpoint, but fragile (chronic) respiratory status. Not immunosuppressed. - ED team had spoken to Leo YANG who recommended IV capsofungin for now - follow blood cultures. 07/23/20 BC prelim pos for fungemia. - unclear source at this time, but most likely from cholecystomy site - consult ID - AM CBC and procal Present on Admission?: Yes (2) Acalculous cholecystitis: - recent fever 2 days ago may indicate ongoing intraabdominal infection - fever improved on 2 days of PO cefdinir and along w/ elevated procalc, may indicate abdominal infection - treat for presume intraabdominal infection w/ IV cefepime 1.5g q8h and IV flagyl q8h Present on Admission?: Yes (3) Chronic respiratory failure with hypoxia, on home O2 therapy: - 07/23/20 cxr worse compared to previous cxr - current clinical picture (increased WOB) may from flattening of diaphragm from abdominal discomfort - on 5L home O2. attributes to 40 pack year smoking hx and occupational () exposures. Has rheumatoid arthritis but lower suspicion as contributor at this time. - titrate O2 to >90% - duonebs QIDR PRN ordered. ordered now dose - consider pulm consult and cxr if respiratory status worsens Present on Admission?: Yes (4) COPD (chronic obstructive pulmonary disease): - duonebs as above - continue home mometasone - continue home tiotropium Present on Admission?: Yes (5) Cholecystostomy care: - tube is functional/draining - can consider culture of fluid to check for fungal - monitor clinically for infection Present on Admission?: Yes (6) Hypertension: - continue home meds - elevated BPs noted, will follow after receiving home meds Present on Admission?: Yes (7) DM type 2 (diabetes mellitus, type 2): - hold home alogliptin - pharmacy glycemic consult Present on Admission?: Yes (8) Hypokalemia: - repleting - daily bmp FEN/GI: DM2 diet. No IV fluids. Code: full ppx: SQ Lovenox 30 mg BID dispo: med/surg Present on Admission?: Yes History of Present Illness Chief Complaint: fungemia Primary Care Provider: Doc Morejon MD Zan Reed is a 65 y/o M w/ severe copd (5L home O2) and DM w/ recent cholecystostomy placement last month who presents w/ fungemia (07/23/20) and recent fever (tmax 103.3F 2 days ago). He was discharged from [facility] ED on 07/23/20 for the fever and sent home on PO cefdinir. Patient states that his main discomfort is his breathing (not positional) and that it is near his baseline. He has bilateral upper abdominal pain that is 3/10 severity. The RUQ pain is usually worse w/ eating. He is not on any immunosuppressants (hx collaborated by patient's ). ED course: provided loading dose of IV caspofungin. No leukocytosis. BC pending. Allergies Allergy/AdvReac Type Severity Reaction Status Date / Time acesulfame Allergy Severe SEVERE Verified 07/26/20 19:02 RASH & VOMIT naloxone Allergy Severe SEVERE Verified 07/25/20 15:30 RASH & VOMIT Sulfa (Sulfonamide Allergy Intermediate RASH / Verified 07/25/20 15:30 Antibiotics) ITCHINESS quetiapine [From Seroquel] AdvReac Intermediate Nightmare Unverified 07/25/20 15:30 amitriptyline AdvReac Unknown Unknown Unverified 07/25/20 15:30 morphine AdvReac Unknown Unknown Unverified 07/25/20 15:30 Home Medications Medication Instructions Recorded Confirmed Type artificial saliva (cmce-lytes) 1 spray PO 5XD PRN 10/31/18 07/25/20 History gabapentin 900 mg PO BID 10/31/18 07/25/20 History prazosin 4 mg PO HS 10/31/18 07/25/20 History propranolol 80 mg PO BID 10/31/18 07/25/20 History sennosides 8.6 mg PO BID PRN 10/31/18 07/25/20 History torsemide 40 mg PO QAM 10/31/18 07/25/20 History triamcinolone acetonide 1 applic TOPICAL BID 10/31/18 07/25/20 History alogliptin 12.5 mg tablet 12.5 mg PO DAILY 08/20/19 07/25/20 History sertraline 100 mg tablet 150 mg PO DAILY tab 08/20/19 07/25/20 History trazodone 50 mg tablet 100 mg PO HS PRN tab 08/20/19 07/25/20 History atorvastatin 20 mg PO HS 07/23/20 07/25/20 History cefdinir 300 mg PO BID 10 Days #20 cap 07/23/20 07/25/20 Rx finasteride 5 mg PO DAILY 07/23/20 07/25/20 History losartan 100 mg PO DAILY 07/23/20 07/25/20 History niacin [Nicotinic Acid] 500 mg PO DAILY 07/23/20 07/25/20 History pantoprazole 20 mg PO BID 07/23/20 07/25/20 History Past Med/Surg History Medical History Acute renal failure Anemia Arthralgia of multiple sites Bullous pemphigoid Chronic pain Chronic pain COPD (chronic obstructive pulmonary disease) DM type 2 (diabetes mellitus, type 2) History of intravenous drug abuse Hypertension Hypoxia Memory loss MRSA infection Neuropathy Obesity Rheumatoid arthritis Surgical History History of incision and drainage Family History Other Hypertension Social History (Updated 07/25/20 @ 20:24 by Jian Lynch MD) Smoking Status: Former smoker Tobacco Type: Cigarettes packs per day: 2; Years Smoked: 20; Do You Dip or Chew Tobacco: No; Hx Alcohol Use: No Hx Substance Use: No Preferred Language: French Communication Ability: Effective Mental Health Program Director Required: No Beliefs That Will Affect Care: None marital status: Current Living Situation: Spouse Feels Safe at Home: Yes Safety Concerns: Feels Safe At This Time Assistive Devices: Oxygen - Continuous Review of Systems Review of Systems: Constitutional: Denies fever, chills Eyes: Denies blurry vision, vision changes ENT: Denies sore throat. Cardiovascular: Denies Chest pain, chest pressure, palpitations, extremity swelling Respiratory: + SOB. + mild productive cough (rod/brown sputum). Gastrointestinal: Denies nausea, vomiting, constipation, diarrhea. + mild abd pain at upper quadrants. Genitourinary: Denies urinary symptoms including dysuria Musculoskeletal: Denies weakness, muscle aches/pain, joint aches/pain Neurological: Denies numbness, tingling, focal weakness. + mild headache, 3/10. Physical Exam Physical Exam: Vitals reviewed. Afebrile, hypertensive, satting 97% on 5L O2 nasal cannula. General: A&Ox4. Mild respiratory distress. Appears uncomfortable. Cooperative. Obese habitus. HEENT: Atraumatic, normocephalic. EOMI. PERRL. MMM. Thick neck. Pulm: CTAB anteriorly, breaths slightly shallow. Symmetrical chest rise. Tachypneic. Grunting. Some increased work of breathing. Cardiac: RRR, -mrg. Radial pulses intact and symmetrical. Trace LE edema. Abdominal: Mild TTP at upper quadrants, soft. +BS. obese abdomen. Has cholecystotomy tube w/ dark brown drainage. Results & Data Results & Data ([facility]) Vital Signs (Past 12 Hours) Vital Signs Temp Pulse Resp BP Pulse Ox 07/25/20 19:30 78 20 149/78 H 98 07/25/20 19:08 77 19 146/70 H 98 07/25/20 18:00 75 24 145/75 H 07/25/20 17:34 76 22 142/78 H 07/25/20 17:30 77 25 H 07/25/20 17:00 78 23 07/25/20 16:30 75 14 07/25/20 16:00 79 16 96 07/25/20 15:36 78 20 95 07/25/20 15:17 37 C 79 20 136/75 89 L Diagnostic Findings 07/23/20 cxr: cardiomegaly. Bilateral interstitial thickening is worse compared to 06/06/20 cxr per my interpretation. 07/23/20 CT abd/pelv IMPRESSION: 1. Cholelithiasis with findings suggestive of acute cholecystitis. There is decreased pericholecystic inflammatory changes status post placement of a percutaneous cholecystostomy catheter which appears to be in satisfactory positioning. 2. No pneumoperitoneum or intra-abdominal fluid collection. 3. Mild periportal and precaval adenopathy, likely reactive. 4. Hepatosplenomegaly with possible cirrhosis. 5. Colonic diverticulosis. 6. Mild dilation of the common bile duct. Correlate with LFTs. ECG Additional Comments: 07/23/20 ecg: nsr 86bpm, no ischemic changes. Code Status & VTE Plan Code Status full code VTE Prophylaxis Plan VTE Prophylaxis will be ordered: Yes Supervising Physician Co-Signing Physician Notes Attending addendum: I have physically seen this patient, have supervised the medical residents activities, and agree with the H&P unless as otherwise noted. Assessment and Plan: Deja fungemia- Results are from blood cultures on 07/23/2020 For [facility] ID recommendation, placed on caspofungin IV, and follow culture and sensitivity results. Presumed source is that of cholecystostomy tube Acalculus cholecystitis- Placed on cefepime IV and Flagyl IV as noted, as patient did have some improvement in symptoms on cefdinir 2 days orally Chronic respiratory failure with hypoxia, oxygen dependent/COPD- Target pulse ox 90 to 92% Duonebs every 4 hours while awake and every 2 hours when necessary. Continue mometasone and tiotropium as an outpatient setting Remaining orders and notations as noted Resident Activity Tracking Resident Involvement: Resident Care Provided Care Provided: Adult Hospital Medicine (1) COPD (chronic obstructive pulmonary disease) COPD type: unspecified COPD Qualified Code(s): J44.9 - Chronic obstructive pulmonary disease, unspecified
[2020-07-25] MEDS ORDERED: CEFEPIME IV SCH (21:46)
[2020-07-25] MEDS ORDERED: CEFEPIME CONSULT ACTIVE ONE (21:46)
[2020-07-25] MEDS ORDERED: ALBUT/IPRATROP 3MG/0.5MG NEB 3 ML VIAL NEB STA (22:08)
[2020-07-25] MEDS: metroNIDAZOLE 500 MG/100 ML BAG IV SCH (22:41)
[2020-07-25] MEDS ORDERED: SENNA 8.6 MG TAB PO PRN (23:21)
[2020-07-25] MEDS ORDERED: PATIENT'S HEIGHT AND/OR WEIGHT NEEDED SCH (23:45)
[2020-07-25] MEDS ORDERED: POTASSIUM CHLORIDE PWD 20 MEQ PACK PO STA (23:51)
[2020-07-25] MEDS ORDERED: PHARMACY GLYCEMIC MGMT CONSULT PRN (23:51)
[2020-07-26] MEDS ORDERED: INSULIN ASPART 100 UNITS/ML 3 ML PEN SC SCH
[2020-07-26] MEDS ORDERED: CEFEPIME CONSULT ACTIVE PRN (00:18)
[2020-07-26] MEDS: ENOXAPARIN INJ 30 MG/0.3 ML SYR SQ SCH ×3 (00:34→23:16)
[2020-07-26] MEDS: GABAPENTIN 300 MG CAP PO SCH ×3 (00:35→21:59)
[2020-07-26] MEDS: PROPRANOLOL HCL 80 MG TAB PO SCH ×3 (00:40→21:59)
[2020-07-26] MEDS ORDERED: IBUPROFEN 600 MG TAB PO STA (01:08)
[2020-07-26] MEDS ORDERED: Nursing to Pharmacy Communication SCH (01:15)
[2020-07-26] MEDS ORDERED: INSULIN ASPART 100 UNITS/ML 3 ML PEN SC ONE (03:00)
[2020-07-26] MEDS ORDERED: CARBOHYDRATES FOR HYPOGLYCEMIA PO PRN (05:15)
[2020-07-26] MEDS ORDERED: DEXTROSE 50% 50 ML SYRINGE IV PRN (05:15)
[2020-07-26] MEDS ORDERED: GLUCOSE 40% GEL 15 GM TUBE PO PRN (05:15)
[2020-07-26] MEDS ORDERED: GLUCOSE 10 TABS/TUBE PO PRN (05:15)
[2020-07-26] MEDS ORDERED: GLUCAGON FOR INJ 1 MG VIAL IM PRN (05:15)
[2020-07-26] MEDS: CEFEPIME 2,000 MG in SYRINGE 0 ML IV SCH ×3 (06:12→22:00)
[2020-07-26] MEDS: metroNIDAZOLE 500 MG/100 ML BAG IV SCH ×3 (06:22→22:00)
[2020-07-26] MEDS: ALBUT/IPRATROP 3MG/0.5MG NEB 3 ML VIAL NEB SCH ×4 (08:02→19:10)
[2020-07-26 08:24] LABS: Basophils # (auto) 0.01 K/uL (0-0.2); Basophils % (auto) 0.2 %; Eosinophils # (auto) 0.05 K/uL (0-0.5); Eosinophils % (auto) 0.9 %; Hematocrit (blood only) 27.1 % (42-52); Hemoglobin 8.6 g/dL (14.0-18.0); Immature Granulocytes # (auto) 0.02 K/uL (0.00-0.02); Immature Granulocytes % (auto) 0.4 %; Lymphocytes # (auto) 0.57 K/uL (1.2-3.4); Lymphocytes % (auto) 10.1 %; Mean Corpuscular Hemoglobin 28.3 pg (25-34); Mean Corpuscular Hgb Conc 31.7 g/dL (32-36); Mean Corpuscular Volume 89.1 fL (80-100); Mean Platelet Volume 8.7 fL (7.4-10.4); Monocytes # (auto) 0.74 K/uL (0.11-0.59); Monocytes % (auto) 13.1 %; Neutrophils # (auto) 4.27 K/uL (1.4-6.5); Neutrophils % (auto) 75.3 %; Platelet Count 148 K/uL (130-400); RDW Coefficient of Variation 14.3 % (11.5-14.5); RDW Standard Deviation 47.3 fL (36.4-46.3); Red Blood Count 3.04 M/uL (4.7-6.1); White Blood Count 5.66 K/uL (4.8-10.8)
[2020-07-26 08:48] LABS: Albumin Level 2.3 gm/dl (3.4-5.0); BUN Creatinine Ratio 14.7 (10-20); Calcium 8.9 mg/dl (8.5-10.1); Creatinine Clr Calc Pharmacy 142.5 ml/min; Est GFR (African American) 114.3 ml/min; Est GFR (Non-African American) 98.6 ml/min; Potassium 3.3 mmol/L (3.5-5.1)
[2020-07-26 08:51] LABS: Albumin Globulin Ratio 0.5 (0.9-2); Bilirubin,Total 0.8 mg/dl (0.2-1); Total Protein 7.3 gm/dl (6.4-8.2)
[2020-07-26] MEDS: INSULIN ASPART 100 UNITS/ML 3 ML PEN SC SCH ×4 (08:53→21:30)
[2020-07-26] MEDS: LOSARTAN POTASSIUM 50 MG TAB PO SCH (08:56)
[2020-07-26] MEDS: PANTOprazole 40 MG TAB PO SCH ×2 (08:56→22:00)
[2020-07-26] MEDS: FINASTERIDE 5 MG TAB PO SCH (08:56)
[2020-07-26] MEDS: SERTRALINE HCL 50 MG TABLET PO SCH (08:57)
[2020-07-26] MEDS: TORSEMIDE 20 MG TAB PO SCH (08:57)
[2020-07-26] MEDS: UMECLIDINIUM BROMIDE 62.5MCG/BLISTER 7 PUFFS/INHALER INH SCH (08:57)
[2020-07-26] MEDS: FLUTICASONE FUROATE 100MCG 14 PUFFS/INHALER INH SCH (08:58)
[2020-07-26 09:39] LABS: Estimated Average Glucose 157 mg/dl; Hemoglobin A1C 7.1 % (4.5-5.6)
[2020-07-26] MEDS: PRAZOSIN HCL 1 MG CAP PO SCH ×2 (09:44→21:42)
--- NOTE | 2020-07-26 12:07 | Pharmacy Report ---
Pharmacy Glycemic Short Note 2 - Date of Service July 26, 2020 - Glycemic Short BSG Results (Last 24 hours): 07/25/20 07/25/20 07/26/20 16:28 23:23 03:01 Glucose 139 H POC Glucose 152 H 158 H 07/26/20 07/26/20 07:54 08:04 Glucose 119 H POC Glucose 122 H OUTPATIENT ANTIDIABETIC REGIMEN: * Alogliptin 12.5mg PO Daily * A1c = 7.1% on 07/26/20 ASSESSMENT: * 65 yo T2DM male with adequate outpatient control per A1c * Pt is maintained on oral antidiabetic agents as an outpatient * Oral agents are not recommended for inpatient use d/t drug interactions, changing PO intake, and difficulty titrating for acute hyper/hypoglycemia. ADA recommends re-initiating outpatient oral agents 1-2 days prior to discharge if/when appropriate if they were held on admission. * Will hold oral agents for admission and utilize SQ basal bolus insulin regimen which is the recommended regimen for inpatient glycemic control. * Will initiate weight based insulin dosing for insulin mickey patient and titrate based on BSG trends. * Will start basal insulin if BSG > 140 * Bolus insulin based on weight and moderate stress PLAN FOR INPATIENT GLYCEMIC CONTROL: * Hold outpatient oral diabetes medications * Basal insulin * Lantus SQ HS - dose based on BSG * BSG below 140 --> HOLD * BSG 140-180 --> 12 units * BSG above 180 --> 22 units * Bolus insulin * NovoLog per scale ACHS or Q6hrs while NPO * Goal Range: Low 110 mg/dL - High 140 mg/dL * Correction Factor: 20 mg/dL/unit * Nutritional / Prandial insulin per carb ratio of 1 unit per 6 grams CHO consumed PLAN FOR DISCHARGE: * A1c is in goal range based on age/co-morbidities. No changes needed to outpatient regimen
[2020-07-26] MEDS: CASPOFUNGIN 50 MG in SODIUM CHLORIDE 0.9% 250 ML IV SCH (16:31)
[2020-07-26] MEDS ORDERED: traZODone HCL 100 MG TAB PO PRN (17:46)
--- NOTE | 2020-07-26 17:46 | Hospitalist Progress Note ---
Date of Service July 26, 2020 Assessment & Plan (1) Fungemia: 65 y/o M w/ severe copd on 5L O2 and recent cholecystostomy placement last month who presents w/ fungemia and recent fever. Stable from an infectious standpoint, but fragile (chronic) respiratory status. Not immunosuppressed. - ED team had spoken to Leo YANG who recommended IV capsofungin for now - follow blood cultures. 07/23/20 BC prelim pos for fungemia. - unclear source at this time, but most likely from cholecystomy site - consult ID - AM CBC and procal (2) Acalculous cholecystitis: - recent fever 2 days ago may indicate ongoing intraabdominal infection - fever improved on 2 days of PO cefdinir and along w/ elevated procalc, may indicate abdominal infection - treat for presume intraabdominal infection w/ IV cefepime 1.5g q8h and IV flagyl q8h (3) Chronic respiratory failure with hypoxia, on home O2 therapy: - 07/23/20 cxr worse compared to previous cxr - current clinical picture (increased WOB) may from flattening of diaphragm from abdominal discomfort - on 5L home O2. attributes to 40 pack year smoking hx and occupational () exposures. Has rheumatoid arthritis but lower suspicion as contributor at this time. - titrate O2 to >90% - duonebs QIDR PRN ordered. ordered now dose - consider pulm consult and cxr if respiratory status worsens (4) COPD (chronic obstructive pulmonary disease): - duonebs as above - continue home mometasone - continue home tiotropium (5) Cholecystostomy care: - tube is functional/draining - can consider culture of fluid to check for fungal - monitor clinically for infection (6) Hypertension: - continue home meds - elevated BPs noted, will follow after receiving home meds (7) DM type 2 (diabetes mellitus, type 2): - hold home alogliptin - pharmacy glycemic consult (8) Hypokalemia: - repleting - daily bmp (9) Rheumatoid arthritis: Continue Azathioprine 50 mg 4 times daily (10) Anemia: Hgb 8.6. Unclear cause - repeat labs in AM with basic iron B12 folate and retic count workup. (11) Chronic prescription opiate use: Patient reports [facility] we will have to confirm this on Tuesday. (12) DVT prophylaxis: FEN/GI: DM2 diet. No IV fluids. Code: full ppx: SQ Lovenox 30 mg BID dispo: med/surg Admission and Anticipated Discharge Date Admission Date: July 25, 2020 Subjective No abdominal pain, fever, chills. Percutaneous gallbladder draining well. Patient reports feeling well shortly after his ER visit on 07/23 and his pe rcutaneous drain started working again. At baseline O2 and breathing. Discussed case with Dr. Lopez gastroenterology at [facility]. She reports planned ERCP with stent in August would not be performed earlier due to Fungemia diagnosis. Review of Systems Review of Systems: All systems reviewed & are unremarkable except as noted in HPI & below Physical Exam Constitutional: WD/WN, vitals as above + morbidly obese Eyes: + anicteric sclerae; normal pupil size ENMT: external ear and nose normal, oropharynx normal Neck: trachea midline, no thyromegaly Respiratory: normal respiratory effort, lungs clear to auscultation Cardiovascular: Rate/Rhythm: regular rate and regular rhythm Heart Sounds: no murmur Vessels: no JVD Extremities: normal capillary refill and + pedal edema (1+ pitting b/l ankles); no calf tenderness Gastrointestinal (Abdomen): normal bowel sounds, soft, nontender, no hepatosplenomegaly Percutaneous drain present and draining bile Musculoskeletal: no cyanosis or clubbing, extremities motor strength 5/5 Skin: no rashes, warm and dry Neurologic: moves all extremities and awake; not confused Psychiatric: A+Ox3, euthymic affect Results & Data Results & Data ([facility]) Vital Signs (Past 12 Hours) Vital Signs Temp Pulse Resp BP BP Pulse Ox 07/26/20 15:59 36.6 C 100 H 18 133/75 97 07/26/20 14:59 74 18 96 07/26/20 13:05 71 19 126/75 96 07/26/20 11:01 70 18 98 07/26/20 08:02 61 18 98 07/26/20 07:19 36.6 C 62 19 130/68 98 PG Care Time/CCT Total # of Minutes Spent Total Time Spent with Patient: Total time spent is greater than 50% in coordination of care (as documented) at patient's floor/unit and/or counseling patient: Coding Level of Care Code 04491 Subseq Hosp Care Lvl 3 Diagnoses Fungemia B49 Acalculous cholecystitis K81.9 Chronic respiratory failure with hypoxia, on home O2 therapy J96.11; Z99.81 COPD (chronic obstructive pulmonary disease) J44.9 COPD type: unspecified COPD Cholecystostomy care Z43.4 Hypertension I10 DM type 2 (diabetes mellitus, type 2) E11.9 Hypokalemia E87.6 Rheumatoid arthritis M06.9 Anemia D64.9 Chronic prescription opiate use Z79.891 DVT prophylaxis Z29.9 (1) COPD (chronic obstructive pulmonary disease) COPD type: unspecified COPD Qualified Code(s): J44.9 - Chronic obstructive pulmonary disease, unspecified
[2020-07-26] MEDS: ACETAMINOPHEN 325 MG TAB PO PRN (19:26)
[2020-07-26] MEDS ORDERED: INSULIN GLARGINE SOLOSTAR 100 UNITS/ML 3 ML PEN SC SCH (21:00)
[2020-07-26] MEDS: DOCUSATE SODIUM 100 MG CAP PO SCH (21:43)
[2020-07-26] MEDS: azaTHIOprine 50 MG TAB PO SCH (21:44)
[2020-07-26] MEDS: buprenorphine HCL 8 MG SUBL SL SCH (21:58)
[2020-07-26] MEDS: ATORVASTATIN 20 MG TAB PO SCH (21:59)
--- NOTE | 2020-07-27 05:12 | Billing Data ---
Date of Service July 27, 2020 Coding Level of Care Code 09159 Initial Inpt Care Lvl 3
[2020-07-27] MEDS: CEFEPIME 2,000 MG in SYRINGE 0 ML IV SCH ×2 (06:21→15:41)
[2020-07-27] MEDS: metroNIDAZOLE 500 MG/100 ML BAG IV SCH ×2 (06:21→15:40)
[2020-07-27] MEDS: ACETAMINOPHEN 325 MG TAB PO PRN (06:25)
[2020-07-27] MEDS: ALBUT/IPRATROP 3MG/0.5MG NEB 3 ML VIAL NEB SCH (07:23)
[2020-07-27] MEDS ORDERED: ALBUT/IPRATROP 3MG/0.5MG NEB 3 ML VIAL NEB PRN (07:42)
[2020-07-27] MEDS ORDERED: buprenorphine HCL 8 MG SUBL SL SCH (09:00)
[2020-07-27] MEDS: GABAPENTIN 300 MG CAP PO SCH ×2 (09:26→21:34)
[2020-07-27] MEDS: PANTOprazole 40 MG TAB PO SCH ×2 (09:26→21:33)
[2020-07-27] MEDS: azaTHIOprine 50 MG TAB PO SCH ×4 (09:26→21:40)
[2020-07-27] MEDS: DOCUSATE SODIUM 100 MG CAP PO SCH ×2 (09:27→21:34)
[2020-07-27] MEDS: NIACIN EXTENDED REL 500 MG TABCR PO SCH (09:27)
[2020-07-27] MEDS: PROPRANOLOL HCL 80 MG TAB PO SCH ×2 (09:27→21:33)
[2020-07-27] MEDS: INSULIN ASPART 100 UNITS/ML 3 ML PEN SC SCH ×4 (09:29→21:35)
[2020-07-27] MEDS: INSULIN GLARGINE SOLOSTAR 100 UNITS/ML 3 ML PEN SC SCH (09:31)
--- NOTE | 2020-07-27 09:37 | Hospitalist Progress Note ---
Date of Service July 27, 2020 Assessment & Plan (1) Fungemia: 65 y/o M w/ severe copd on 5L O2 and recent cholecystostomy placement last month who presents w/ fungemia and recent fever. Stable from an infectious standpoint, but fragile (chronic) respiratory status. Not immunosuppressed. - ED team had spoken to Leo YANG who recommended IV caspofungin for now - follow blood cultures. [07/23] positive for candidiasis, repeat prior to treatment 07/25 also growing yeast. Repeat today 2 days treatment [07/27]. - unclear source at this time, but most likely from cholecystomy site - discussed - discussed with [facility] and surgery - given patient stable and LFTs normal he will just follow up with surgery and GI as outpatient. If unable to clear candidiasis will need transferred. - ID consult pending (2) Acalculous cholecystitis: - recent fever 2 days ago may indicate ongoing intraabdominal infection - however no WBC count at that time. Repeat blood culture negative for bacterial infection. Will discontinue further antibacterials unless worsening abdominal pain. - suspect fever from fungemia as above now confirmed with repeat cultures. (3) Chronic respiratory failure with hypoxia, on home O2 therapy: - on baseline 5L home O2. attributes to 40 pack year smoking hx and occupational () exposures. Has rheumatoid arthritis but lower suspicion as contributor at this time. - titrate O2 to >90% - duonebs QIDR PRN ordered (4) COPD (chronic obstructive pulmonary disease): - duonebs as above - continue home mometasone - continue home tiotropium (5) Cholecystostomy care: - tube is functional/draining - send fungal and bacterial cultures from tube (6) Hypertension: - continue home meds, leg swelling at baseline per patient (7) DM type 2 (diabetes mellitus, type 2): HbA1C 7.1 - hold home alogliptin - pharmacy glycemic consult (8) Hypokalemia: - KCl 40 meq po today - daily bmp (9) Rheumatoid arthritis: Continue Azathioprine 50 mg 4 times daily (10) Anemia: Hgb 9.3. Unclear cause - anemia workup unremarkable with B12 and folate levels pending. (11) Chronic prescription opiate use: Patient reports [facility]. We will have to confirm this on Tuesday. (12) DVT prophylaxis: FEN/GI: DM2 diet. No IV fluids. Code: full ppx: SQ Lovenox 30 mg BID dispo: med/surg Admission and Anticipated Discharge Date Admission Date: July 26, 2020 Subjective Feels at baseline. No acute concerns or questions. No fevers, chills, jaundice, abdominal pain, diarrhea, constipation, nausea or vomiting. Discussed with [facility]. No current evidence of ongoing acute cholecystitis from exam or WBC. LFTs normal. Recommend outpatient follow up to decide if cholecystectomy is needed vs. axios stent. If unable to clear candidemia may need to be transferred as inpatient. Review of Systems Review of Systems: All systems reviewed & are unremarkable except as noted in HPI & below Physical Exam Constitutional: WD/WN, vitals as above + morbidly obese Eyes: + anicteric sclerae; normal pupil size Respiratory: normal respiratory effort, lungs clear to auscultation Cardiovascular: Rate/Rhythm: regular rate and regular rhythm Heart Sounds: no murmur Vessels: no JVD Extremities: normal capillary refill and + pedal edema (1+ pitting pre-tibial); no calf tenderness Gastrointestinal (Abdomen): normal bowel sounds, soft, nontender, no hepatosplenomegaly Musculoskeletal: no cyanosis or clubbing, extremities motor strength 5/5 Skin: no rashes, warm and dry Neurologic: moves all extremities and awake; not confused Psychiatric: A+Ox3, euthymic affect Results & Data Results & Data ([facility]) Vital Signs (Past 12 Hours) Vital Signs Temp Pulse Resp BP BP Pulse Ox 07/27/20 07:32 36.6 C 63 16 113/63 97 07/27/20 07:23 65 14 98 07/26/20 22:30 36.7 C 70 18 100/58 L 96 07/26/20 21:39 66 136/77 PG Care Time/CCT Total # of Minutes Spent Total Time Spent with Patient: Total time spent is greater than 50% in coordination of care (as documented) at patient's floor/unit and/or counseling patient: Coding Level of Care Code 57247 Subseq Hosp Care Lvl 2 Diagnoses Fungemia B49 Acalculous cholecystitis K81.9 Chronic respiratory failure with hypoxia, on home O2 therapy J96.11; Z99.81 COPD (chronic obstructive pulmonary disease) J44.9 COPD type: unspecified COPD Cholecystostomy care Z43.4 Hypertension I10 DM type 2 (diabetes mellitus, type 2) E11.9 Hypokalemia E87.6 Rheumatoid arthritis M06.9 Anemia D64.9 Chronic prescription opiate use Z79.891 DVT prophylaxis Z29.9 (1) COPD (chronic obstructive pulmonary disease) COPD type: unspecified COPD Qualified Code(s): J44.9 - Chronic obstructive pulmonary disease, unspecified
[2020-07-27] MEDS: buprenorphine HCL 8 MG SUBL SL SCH ×2 (09:38→21:38)
[2020-07-27] MEDS: CASPOFUNGIN 50 MG in SODIUM CHLORIDE 0.9% 250 ML IV SCH (09:38)
[2020-07-27] MEDS: FINASTERIDE 5 MG TAB PO SCH (09:39)
[2020-07-27] MEDS: LOSARTAN POTASSIUM 50 MG TAB PO SCH (09:39)
[2020-07-27] MEDS: UMECLIDINIUM BROMIDE 62.5MCG/BLISTER 7 PUFFS/INHALER INH SCH (09:40)
[2020-07-27] MEDS: SERTRALINE HCL 50 MG TABLET PO SCH (09:40)
[2020-07-27] MEDS: FLUTICASONE FUROATE 100MCG 14 PUFFS/INHALER INH SCH (09:40)
[2020-07-27] MEDS: TORSEMIDE 20 MG TAB PO SCH (09:42)
[2020-07-27 09:46] LABS: Basophils # (auto) 0.02 K/uL (0-0.2); Basophils % (auto) 0.4 %; Eosinophils # (auto) 0.12 K/uL (0-0.5); Eosinophils % (auto) 2.2 %; Hematocrit (blood only) 28.8 % (42-52); Hemoglobin 9.3 g/dL (14.0-18.0); Immature Granulocytes # (auto) 0.04 K/uL (0.00-0.02); Immature Granulocytes % (auto) 0.7 %; Lymphocytes # (auto) 0.72 K/uL (1.2-3.4); Lymphocytes % (auto) 13.3 %; Mean Corpuscular Hemoglobin 28.5 pg (25-34); Mean Corpuscular Hgb Conc 32.3 g/dL (32-36); Mean Corpuscular Volume 88.3 fL (80-100); Mean Platelet Volume 8.9 fL (7.4-10.4); Monocytes # (auto) 0.62 K/uL (0.11-0.59); Monocytes % (auto) 11.4 %; Platelet Count 136 K/uL (130-400); RDW Coefficient of Variation 14.2 % (11.5-14.5); RDW Standard Deviation 45.9 fL (36.4-46.3); Red Blood Count 3.26 M/uL (4.7-6.1); Reticulocyte % 0.8 % (0.5-2.0); Reticulocytes # 0.03 10^6/uL (0.02-0.10); White Blood Count 5.42 K/uL (4.8-10.8)
[2020-07-27 10:03] LABS: Albumin Level 2.5 gm/dl (3.4-5.0); BUN Creatinine Ratio 15.4 (10-20); Calcium 8.7 mg/dl (8.5-10.1); Creatinine Clr Calc Pharmacy 101.1 ml/min; Est GFR (African American) 90.7 ml/min; Est GFR (Non-African American) 78.2 ml/min; Potassium 3.1 mmol/L (3.5-5.1)
[2020-07-27 10:06] LABS: Albumin Globulin Ratio 0.5 (0.9-2); Bilirubin,Total 0.6 mg/dl (0.2-1); Ferritin 107.8 ng/ml (8-388); Globulin 5.1 gm/dl (2.5-4.0); Total Protein 7.6 gm/dl (6.4-8.2)
[2020-07-27 10:18] LABS: Folate (Folic Acid) 12.9 ng/ml (>5.38)
--- NOTE | 2020-07-27 10:32 | Pharmacy Report ---
Pharmacy Glycemic Short Note 2 - Date of Service July 27, 2020 - Glycemic Short BSG Results (Last 24 hours): 07/26/20 07/26/20 07/26/20 12:14 17:11 21:08 Glucose POC Glucose 116 H 156 H 107 H 07/27/20 07/27/20 08:10 09:26 Glucose 151 H POC Glucose 137 H OUTPATIENT ANTIDIABETIC REGIMEN: * Alogliptin 12.5mg PO Daily * A1c = 7.1% on 07/26/20 ASSESSMENT: 07/27 * Pt has received 22 units of insulin over the past 24hrs * 0 units of basal * 22 units of bolus with NovoLog * BSGs [phone] mg/dl * AM fasting BSG above goal range at 137 mg/dl. No basal insulin given yesterday per BSG scale. Will schedule low dose basal insulin * Post-prandial BSGs in goal range. No changes needed to CF/CR 07/26 * 65 yo T2DM male with adequate outpatient control per A1c * Pt is maintained on oral antidiabetic agents as an outpatient * Oral agents are not recommended for inpatient use d/t drug interactions, changing PO intake, and difficulty titrating for acute hyper/hypoglycemia. ADA recommends re-initiating outpatient oral agents 1-2 days prior to discharge if/when appropriate if they were held on admission. * Will hold oral agents for admission and utilize SQ basal bolus insulin regimen which is the recommended regimen for inpatient glycemic control. * Will initiate weight based insulin dosing for insulin mickey patient and titrate based on BSG trends. * Will start basal insulin if BSG > 140 * Bolus insulin based on weight and moderate stress PLAN FOR INPATIENT GLYCEMIC CONTROL: * Hold outpatient oral diabetes medications * Basal insulin: start scheduled basal * Lantus 10 units SQ daily * Bolus insulin: no change * NovoLog per scale ACHS or Q6hrs while NPO * Goal Range: Low 110 mg/dL - High 140 mg/dL * Correction Factor: 20 mg/dL/unit * Nutritional / Prandial insulin per carb ratio of 1 unit per 6 grams CHO consumed PLAN FOR DISCHARGE: * A1c is in goal range based on age/co-morbidities. No changes needed to outpatient regimen
[2020-07-27] MEDS: ENOXAPARIN INJ 30 MG/0.3 ML SYR SQ SCH (13:41)
[2020-07-27] MEDS ORDERED: POTASSIUM CHLORIDE CRTAB 20 MEQ TABCR PO ONE (18:44)
[2020-07-27] MEDS: PRAZOSIN HCL 1 MG CAP PO SCH (21:33)
[2020-07-27] MEDS: ATORVASTATIN 20 MG TAB PO SCH (21:34)
[2020-07-28] MEDS: ENOXAPARIN INJ 30 MG/0.3 ML SYR SQ SCH ×2 (00:56→13:35)
[2020-07-28 07:55] LABS: Basophils # (auto) 0.02 K/uL (0-0.2); Basophils % (auto) 0.4 %; Eosinophils # (auto) 0.17 K/uL (0-0.5); Eosinophils % (auto) 3.7 %; Hematocrit (blood only) 28.8 % (42-52); Immature Granulocytes # (auto) 0.03 K/uL (0.00-0.02); Immature Granulocytes % (auto) 0.6 %; Lymphocytes # (auto) 0.91 K/uL (1.2-3.4); Lymphocytes % (auto) 19.6 %; Mean Corpuscular Hemoglobin 28.6 pg (25-34); Mean Corpuscular Hgb Conc 31.3 g/dL (32-36); Mean Corpuscular Volume 91.4 fL (80-100); Mean Platelet Volume 8.9 fL (7.4-10.4); Monocytes # (auto) 0.36 K/uL (0.11-0.59); Monocytes % (auto) 7.7 %; Neutrophils # (auto) 3.16 K/uL (1.4-6.5); Platelet Count 169 K/uL (130-400); Red Blood Count 3.15 M/uL (4.7-6.1); White Blood Count 4.65 K/uL (4.8-10.8)
[2020-07-28 08:32] LABS: Albumin Level 2.4 gm/dl (3.4-5.0); BUN Creatinine Ratio 17.9 (10-20); Calcium 8.5 mg/dl (8.5-10.1); Creatinine Clr Calc Pharmacy 103.2 ml/min; Est GFR (African American) 92.9 ml/min; Est GFR (Non-African American) 80.2 ml/min
[2020-07-28 08:35] LABS: Albumin Globulin Ratio 0.5 (0.9-2); Bilirubin,Total 0.5 mg/dl (0.2-1); Total Protein 7.4 gm/dl (6.4-8.2)
[2020-07-28] MEDS: PANTOprazole 40 MG TAB PO SCH ×2 (09:50→20:28)
[2020-07-28] MEDS: azaTHIOprine 50 MG TAB PO SCH ×4 (09:50→20:29)
[2020-07-28] MEDS: PROPRANOLOL HCL 80 MG TAB PO SCH ×2 (09:51→20:28)
[2020-07-28] MEDS: NIACIN EXTENDED REL 500 MG TABCR PO SCH (09:52)
[2020-07-28] MEDS: GABAPENTIN 300 MG CAP PO SCH ×2 (09:52→20:27)
[2020-07-28] MEDS: DOCUSATE SODIUM 100 MG CAP PO SCH ×2 (09:52→20:28)
[2020-07-28] MEDS: LOSARTAN POTASSIUM 50 MG TAB PO SCH (09:53)
[2020-07-28] MEDS: FINASTERIDE 5 MG TAB PO SCH (09:53)
[2020-07-28] MEDS: SERTRALINE HCL 50 MG TABLET PO SCH (09:53)
[2020-07-28] MEDS: TORSEMIDE 20 MG TAB PO SCH (09:53)
[2020-07-28] MEDS: UMECLIDINIUM BROMIDE 62.5MCG/BLISTER 7 PUFFS/INHALER INH SCH (09:54)
[2020-07-28] MEDS: FLUTICASONE FUROATE 100MCG 14 PUFFS/INHALER INH SCH (09:54)
[2020-07-28] MEDS: INSULIN GLARGINE SOLOSTAR 100 UNITS/ML 3 ML PEN SC SCH (09:55)
[2020-07-28] MEDS: INSULIN ASPART 100 UNITS/ML 3 ML PEN SC SCH ×4 (09:57→20:36)
[2020-07-28] MEDS: CASPOFUNGIN 50 MG in SODIUM CHLORIDE 0.9% 250 ML IV SCH (09:59)
[2020-07-28] MEDS: buprenorphine HCL 8 MG SUBL SL SCH ×2 (09:59→20:34)
[2020-07-28] MEDS ORDERED: POTASSIUM CHLORIDE CRTAB 20 MEQ TABCR PO STA (10:36)
--- NOTE | 2020-07-28 10:51 | XCELERA ---
[id number]
--- NOTE | 2020-07-28 12:34 | Pharmacy Report ---
Pharmacy Glycemic Short Note 2 - Date of Service July 28, 2020 - Glycemic Short BSG Results (Last 24 hours): 07/27/20 07/27/20 07/27/20 12:31 17:41 20:35 Glucose POC Glucose 142 H 140 H 184 H 07/28/20 07/28/20 07/28/20 07:16 08:35 12:29 Glucose 110 H POC Glucose 189 H 106 H OUTPATIENT ANTIDIABETIC REGIMEN: * Alogliptin 12.5mg PO Daily * A1c = 7.1% on 07/26/20 ASSESSMENT: 07/28 * Pt has received 43 units of insulin over the past 24hrs * 10 units of basal * 33 units of bolus with NovoLog * BSGs [phone] mg/dl * AM fasting in PRP was 110 mg/dL and 189 mg/dL on fingerstick. Will continue current Lantus dosing. If fasting continues to be elevate titrate Lantus upwards tomorrow by 20%. * Post-prandial BSGs in goal range. No changes needed to CF/CR 07/27 * Pt has received 22 units of insulin over the past 24hrs * 0 units of basal * 22 units of bolus with NovoLog * BSGs [phone] mg/dl * AM fasting BSG above goal range at 137 mg/dl. No basal insulin given yesterday per BSG scale. Will schedule low dose basal insulin * Post-prandial BSGs in goal range. No changes needed to CF/CR 07/26 * 65 yo T2DM male with adequate outpatient control per A1c * Pt is maintained on oral antidiabetic agents as an outpatient * Oral agents are not recommended for inpatient use d/t drug interactions, changing PO intake, and difficulty titrating for acute hyper/hypoglycemia. ADA recommends re-initiating outpatient oral agents 1-2 days prior to discharge if/when appropriate if they were held on admission. * Will hold oral agents for admission and utilize SQ basal bolus insulin regimen which is the recommended regimen for inpatient glycemic control. * Will initiate weight based insulin dosing for insulin mickey patient and titrate based on BSG trends. * Will start basal insulin if BSG > 140 * Bolus insulin based on weight and moderate stress PLAN FOR INPATIENT GLYCEMIC CONTROL: * Hold outpatient oral diabetes medications * Basal insulin * Lantus 10 units SQ daily * Bolus insulin: no change * NovoLog per scale ACHS or Q6hrs while NPO * Goal Range: Low 110 mg/dL - High 140 mg/dL * Correction Factor: 20 mg/dL/unit * Nutritional / Prandial insulin per carb ratio of 1 unit per 6 grams CHO consumed PLAN FOR DISCHARGE: * A1c is in goal range based on age/co-morbidities. No changes needed to outpat ient regimen
[2020-07-28] MEDS ORDERED: FLUCONAZOLE 100 MG TAB PO ONE (16:10)
--- NOTE | 2020-07-28 19:57 | Discharge Summary ---
Date of Service July 28, 2020 Admission HPI Per Admitting Provider Zan Reed is a 65 y/o M w/ severe copd (5L home O2) and DM w/ recent cholecystostomy placement last month who presents w/ fungemia (07/23/20) and recent fever (tmax 103.3F 2 days ago). He was discharged from [facility] ED on 07/23/20 for the fever and sent home on PO cefdinir. Patient states that his main discomfort is his breathing (not positional) and that it is near his baseline. He has bilateral upper abdominal pain that is 3/10 severity. The RUQ pain is usually worse w/ eating. He is not on any immunosuppressants (hx collaborated by patient's ). ED course: provided loading dose of IV caspofungin. No leukocytosis. BC pending. Principal Diagnosis Fungemia, Deja albicans bacteremia, Acute cholecystitis Discharge Exam Constitutional WD/WN, vitals as above + obese Eyes + anicteric sclerae ENMT external ear and nose normal, oropharynx normal Neck trachea midline, no thyromegaly Respiratory normal respiratory effort, lungs clear to auscultation Cardiovascular RRR, no murmur, no edema Chest (Breasts) Chest: normal inspection of chest Gastrointestinal (Abdomen) Inspection/Auscultation: + abdomen abnormal to inspection (cholecystostomy tube in place,no surrounding erythema,bilious drainage) Percussion/Palpation: + abdomen tender (mild in RUQ) and abdomen soft; no guarding Musculoskeletal Extremities: extremities normal to inspection; no cyanosis and no clubbing Skin no rashes, warm and dry Neurologic moves all extremities and awake; no focal motor deficits Psychiatric A+Ox3, euthymic affect Lymphatic no lymphedema Discharge Data Allergies Allergy/AdvReac Type Severity Reaction Status Date / Time acesulfame Allergy Severe SEVERE Verified 07/26/20 19:02 RASH & VOMIT naloxone Allergy Severe SEVERE Verified 07/25/20 15:30 RASH & VOMIT Sulfa (Sulfonamide Allergy Intermediate RASH / Verified 07/25/20 15:30 Antibiotics) ITCHINESS quetiapine [From Seroquel] AdvReac Intermediate Nightmare Unverified 07/25/20 15:30 amitriptyline AdvReac Unknown Unknown Unverified 07/25/20 15:30 morphine AdvReac Unknown Unknown Unverified 07/25/20 15:30 Consultations 07/25/20 18:32 ED Decision to Admit Stat 07/25/20 23:21 Consult Infectious Diseases Routine 07/28/20 16:06 Consult General Surgery Routine Consult Ophthalmology Routine Ordered Studies ABDOMEN AND PELVIS CT WITHOUT CONTRAST CT DOSE: 1653.60 mGy.cm HISTORY: Acute fever fever, recent biliary drain TECHNIQUE: Multiaxial CT images of the abdomen and pelvis were performed without contrast. A dose lowering technique was utilized adhering to the principles of ALARA. COMPARISON STUDY: CT abdomen and pelvis 06/06/2020 FINDINGS: Mitral annular calcifications. Bibasilar opacities suggestive of atelectasis. 6 mm fissural nodule of the right middle lobe is partially imaged no pneumatosis or pneumoperitoneum. Limited evaluation of the solid abdominal use of IV contrast. Hepatosplenomegaly. The spleen measures 18.8 cm in length. Mild marginal nodularity of the liver. No hepatic mass identified. Cholelithiasis with gallbladder wall thickening and pericholecystic fluid/edema redemonstrated. There is decreased inflammatory changes compared to the prior study with interval percutaneous transhepatic cholecystostomy catheter. The distal tip of the catheter terminates within the mid to inferior gallbladder lumen appears to be in appropriate positioning. Periportal and precaval adenopathy with lymph nodes measuring up to 1.3 cm, similar to comparison. Mild dilation of the common bile duct measuring 11 mm. No choledocholithiasis identified. Unremarkable kidneys. No hydronephrosis. Coarse calcifications of the prostate. Partial distention of the urinary bladder. Atherosclerotic plaque of the abdominal aorta without aneurysm. No adenopathy. No bowel obstruction or bowel wall thickening. Mild colonic diverticulosis. Normal appendix. Unremarkable soft tissues. No acute fracture. Grade 1 anterolisthesis L5 on S1 with chronic bilateral L5 pars defects. IMPRESSION: 1. Cholelithiasis with findings suggestive of acute cholecystitis. There is decreased pericholecystic inflammatory changes status post placement of a percutaneous cholecystostomy catheter which appears to be in satisfactory positioning. 2. No pneumoperitoneum or intra-abdominal fluid collection. 3. Mild periportal and precaval adenopathy, likely reactive. 4. Hepatosplenomegaly with possible cirrhosis. 5. Colonic diverticulosis. 6. Mild dilation of the common bile duct. Correlate with LFTs. Hospital Course (1) Fungemia: 65 y/o M w/ severe copd on 5L O2 and recent cholecystostomy placement last month who presents w/ fungemia and recent fever. He was treated with po cefdinir from 07/23-07/25 and then recalled through the ER for admission when BCxs began growing Deja albicans. Repeat BCxs 07/25 again with Deja. BCxs repeated on 07/27 after being on IV Caspogungin x 48 hrs and now no growth to date With cholecystostomy tube in place, no surrounding cellulitis. It does appear to be functioning with bilious drainage and is in place on CT abd/pel on 07/23. With evidence radiographically of acute cholecystitis on CT abd/pel LFTs normal , however they were also normal when he had septic shock and acute cholecystitis in 05/2020 Procalcitonin elevated on admission at 5 and trended downward to 2 CRP elevate abbey 3.95 - ED team had spoken to Leo YANG who recommended IV caspofungin Formal ID consult on 07/28 recommended: TTE-normal/no vegetation; CRP 3.95, HIV negative, Hep C Antibody-PRELIMINARY POSITIVE; Ophtho consult--> no evidence of fungal infection in eye; and Gen Surgery consultation as acute cholecystitis may be cause of fungemia; and dc Caspo and start Fluconazole 800mg po x 1, followed by 400mg po daily after that Gen Surgery here recommended transfer again to [place] Accepting physician at [facility] is Dr. Curry and I also discussed care with the national account director Acute Care Surgeon (2) Acalculous cholecystitis: - recent fever 2 days prior to admission may indicate ongoing intraabdominal infection - however no WBC count at that time. Repeat blood culture negative for bacterial infection. Will discontinue further antibacterials unless worsening abdominal pain. - suspect fever from fungemia as above now confirmed with repeat cultures. with functioning cholecystostomy tube in place but acute sanjay on CT transfer to [place] to [facility] for cholecystectomy (3) Chronic respiratory failure with hypoxia, on home O2 therapy: - on baseline 5L home O2. attributes to 40 pack year smoking hx and occupational () exposures. Has rheumatoid arthritis but lower suspicion as contributor at this time. - titrate O2 to >90% - duonebs QIDR PRN ordered continue home LAMA and ICS/LABA (4) COPD (chronic obstructive pulmonary disease): - duonebs as above - continue home mometasone - continue home tiotropium (5) Cholecystostomy care: - tube is functional/draining - send fungal and bacterial cultures from tube-pending at time of discharge fungal smear neg (6) Hypertension: - continue home meds, leg swelling at baseline per patient (7) DM type 2 (diabetes mellitus, type 2): HbA1C 7.1 - hold home alogliptin - pharmacy glycemic consult Lantus and Novolog utilized (8) Hypokalemia: - persists replace witj po KCl 60 meq po x 1 follow BMP in AM is on torsemide (9) Rheumatoid arthritis: Continue Azathioprine 50 mg 4 times daily Also with a h/o bullous pemphigoid-not sure if azathioprine is for this? (10) Anemia: Hgb 9.0. Unclear cause - anemia workup with B12 pending; folate level normal, iron studies normal TSH not drawn by time of discharge but could consider drawing this as an outpt (11) Chronic prescription opiate use: Patient reports [facility] Confirmed in PDMP website (12) Hepatitis C antibody positive in blood: as above, prelim positive HCV ab await confirmatory testing (13) DVT prophylaxis: SQ Lovenox 30 mg BID dispo: transfer to [facility] FULL CODE Total Time Total Time Spent Total Time Spent (In Minutes): 60 min Total Time Includes: Examination of the Patient, Discharge Planning, Medication Reconciliation and Communication With Other Providers (Surgery, Ophthalmology) Discharge Plan Discharge Items Patient Disposition: Transfer Acute Care Hospital Reason For Visit: FUNGEMIA Discharge Diagnosis: Fungemia, Deja albicans bacteremia, Acute cholecystitis Condition on Discharge: Fair Activity: As commented below Exercise/Sports: Rest today Non-emergency contact: Primary Care Provider Call non-emergency contact if: you have any medication questions and your symptoms worsen Follow-up/Referrals: Doc Morejon MD [Primary Care Provider] - Diet: Nothing by Mouth Addtl Attending Provider Instructions: Transferred to [facility] Pending Studies at Discharge: Yes Stand-Alone Forms: My [facility] Skilled Items Patient informed of condition?: Yes DNR: No Discharge Level of Care: Other Communicable Disease: No Discharge Prognosis: Stable Lines: Peripheral IV Urinary Catheter: No Medications and DC Order Prescriptions: New fluconazole 100 mg Tablet 400 mg PO QAM Qty: 13 RF: 0 azathioprine [Imuran] 50 mg Tablet 50 mg PO QID Qty: 30 RF: 0 buprenorphine HCl 8 mg Tablet, Sublingual 8 mg sublingual BID Qty: 10 RF: 0 Incruse Ellipta 62.5 mcg/actuation Blister With Device 1 puff inhalation QAM Qty: 1 RF: 0 Arnuity Ellipta 100 mcg/actuation Blister With Device 1 puff inhalation QAM Qty: 1 RF: 0 Continued sertraline 100 mg tablet 150 mg PO DAILY RF: 0 trazodone 50 mg tablet 100 mg PO HS PRN (Reason: sleep) RF: 0 alogliptin 12.5 mg tablet 12.5 mg PO DAILY RF: 0 sennosides 8.6 mg Tablet 8.6 mg PO BID PRN (Reason: Constipation) RF: 0 propranolol 80 mg Tablet 80 mg PO BID RF: 0 torsemide 20 mg Tablet 40 mg PO QAM RF: 0 triamcinolone acetonide 0.5 % Cream 1 applic TOPICAL BID RF: 0 gabapentin 300 mg Capsule 900 mg PO BID RF: 0 prazosin 2 mg Capsule 4 mg PO HS RF: 0 artificial saliva (cmce-lytes) [place] With Pump 1 spray PO 5XD PRN (Reason: Dry Mouth) RF: 0 pantoprazole 20 mg Tablet,Delayed Release (Dr/Ec) 20 mg PO BID RF: 0 atorvastatin 20 mg Tablet 20 mg PO HS RF: 0 niacin [Nicotinic Acid] 500 mg Capsule, Extended Release 500 mg PO DAILY RF: 0 losartan 100 mg Tablet 100 mg PO DAILY RF: 0 finasteride 5 mg Tablet 5 mg PO DAILY RF: 0 Discontinued cefdinir 300 mg capsule 300 mg PO BID 10 Days Qty: 20 RF: 0 Discharge Orders: Discharge Order (Routine); Ordered 07/28/20 Ordered By: Mary Burger/Other Patient Handouts: Managing Type 2 Diabetes, A1C Admission Data Admit Date/Time: 07/26/20 17:47 Attending Provider: Mary Carlson Admit Provider: Jian Lynch Primary Care Provider: Doc Morejon Other Providers: Todd Elizalde ; Jay Horn ; Juancarlos Estrella ; Tony Randolph I. ; Sanju Roach II ; Lilian Dunn ; Cuco Gonzalez ; [facility] ; Celia Lion ; Ricky Caraballo Coding Level of Care Code D/C Day Management >30 mins Diagnoses Fungemia B49 Acalculous cholecystitis K81.9 Chronic respiratory failure with hypoxia, on home O2 therapy J96.11; Z99.81 COPD (chronic obstructive pulmonary disease) J44.9 COPD type: unspecified COPD Cholecystostomy care Z43.4 Hypertension I10 DM type 2 (diabetes mellitus, type 2) E11.9 Hypokalemia E87.6 Rheumatoid arthritis M06.9 Anemia D64.9 Chronic prescription opiate use Z79.891 Hepatitis C antibody positive in blood R76.8 DVT prophylaxis Z29.9
[2020-07-28] MEDS: PRAZOSIN HCL 1 MG CAP PO SCH (20:27)
[2020-07-28] MEDS: ATORVASTATIN 20 MG TAB PO SCH (20:29)
--- NOTE | 2020-07-28 20:39 | Surgery Consultation ---
Date of Consultation July 28, 2020 Assessment & Plan (1) Fungemia: (2) Acute cholecystitis due to biliary calculus: pt is a 65 year-old male who is S/P cholecystotomy, with fungemia, ID consult recommend to do cholecystectomy, IMP: S/P cholecystotomy, chronic cholecystitis, fungemia, base on severe COPD and co-morbidity, recommend to transfer to [facility] for further treatment, pt understood, he agrees with transfer, I answered all questions, Present on Admission?: Yes Supervising Physician Co-Signing Physician Notes Attending addendum: I have physically seen this patient, have supervised the medical residents activities, and agree with the H&P unless as otherwise noted. Assessment and Plan: Deja fungemia- Results are from blood cultures on 07/23/[address] [facility] ID recommendation, placed on caspofungin IV, and follow culture and sensitivity results. Presumed source is that of cholecystostomy tube Acalculus cholecystitis- Placed on cefepime IV and Flagyl IV as noted, as patient did have some improvement in symptoms on cefdinir 2 days orally Chronic respiratory failure with hypoxia, oxygen dependent/COPD- Target pulse ox 90 to 92% Duonebs every 4 hours while awake and every 2 hours when necessary. Continue mometasone and tiotropium as an outpatient setting Remaining orders and notations as noted History of Present Illness Attending Physician: Mary Carlson MD History of Present Illness Chief Complaint: fungemia Primary Care Provider: Doc Morejon MD Zan Reed is a 65 y/o M w/ severe copd (5L home O2) and DM w/ recent cholecystostomy placement last month who presents w/ fungemia (07/23/20) and recent fever (tmax 103.3F 2 days ago). He was discharged from [facility] ED on 07/23/20 for the fever and sent home on PO cefdinir. Patient states that his main discomfort is his breathing (not positional) and that it is near his baseline. He has bilateral upper abdominal pain that is 3/10 severity. The RUQ pain is usually worse w/ eating. He is not on any immunosuppressants (hx collaborated by patient's ). I ( Celia Lion MD ) got a call for consult for cholecystectomy, Fungemia, S/P cholecystostomy at [facility], I reviewed pt's H/P, labs, CT scan with pt, mild pain on RUQ, pt denies nausea, no vomiting, T 37. ED course: provided loading dose of IV caspofungin. No leukocytosis. BC pending. Allergies Allergy/AdvReac Type Severity Reaction Status Date / Time acesulfame Allergy Severe SEVERE Verified 07/26/20 19:02 RASH & VOMIT naloxone Allergy Severe SEVERE Verified 07/25/20 15:30 RASH & VOMIT Sulfa (Sulfonamide Allergy Intermediate RASH / Verified 07/25/20 15:30 Antibiotics) ITCHINESS quetiapine [From Seroquel] AdvReac Intermediate Nightmare Unverified 07/25/20 15:30 amitriptyline AdvReac Unknown Unknown Unverified 07/25/20 15:30 morphine AdvReac Unknown Unknown Unverified 07/25/20 15:30 Home Medications Medication Instructions Recorded Confirmed Type artificial saliva (cmce-lytes) 1 spray PO 5XD PRN 10/31/18 07/25/20 History gabapentin 900 mg PO BID 10/31/18 07/25/20 History prazosin 4 mg PO HS 10/31/18 07/25/20 History propranolol 80 mg PO BID 10/31/18 07/25/20 History sennosides 8.6 mg PO BID PRN 10/31/18 07/25/20 History torsemide 40 mg PO QAM 10/31/18 07/25/20 History triamcinolone acetonide 1 applic TOPICAL BID 10/31/18 07/25/20 History alogliptin 12.5 mg tablet 12.5 mg PO DAILY 08/20/19 07/25/20 History sertraline 100 mg tablet 150 mg PO DAILY tab 08/20/19 07/25/20 History trazodone 50 mg tablet 100 mg PO HS PRN tab 08/20/19 07/25/20 History atorvastatin 20 mg PO HS 07/23/20 07/25/20 History cefdinir 300 mg PO BID 10 Days #20 cap 07/23/20 07/25/20 Rx finasteride 5 mg PO DAILY 07/23/20 07/25/20 History losartan 100 mg PO DAILY 07/23/20 07/25/20 History niacin [Nicotinic Acid] 500 mg PO DAILY 07/23/20 07/25/20 History pantoprazole 20 mg PO BID 07/23/20 07/25/20 History Past Med/Surg History Medical History Acute renal failure Anemia Arthralgia of multiple sites Bullous pemphigoid Chronic pain Chronic pain COPD (chronic obstructive pulmonary disease) DM type 2 (diabetes mellitus, type 2) History of intravenous drug abuse Hypertension Hypoxia Memory loss MRSA infection Neuropathy Obesity Rheumatoid arthritis Surgical History History of incision and drainage Family History Other Hypertension Social History (Updated 07/25/20 @ 20:24 by Jian Lynch MD) Smoking Status: Former smoker Tobacco Type: Cigarettes packs per day: 2; Years Smoked: 20; Do You Dip or Chew Tobacco: No; Hx Alcohol Use: No Hx Substance Use: No Preferred Language: Chinese Communication Ability: Effective Door Frame Builder Required: No Beliefs That Will Affect Care: None marital status: Current Living Situation: Spouse Feels Safe at Home: Yes Safety Concerns: Feels Safe At This Time Assistive Devices: Oxygen - Continuous Review of Systems Review of Systems: Constitutional: Denies fever, chills Eyes: Denies blurry vision, vision changes ENT: Denies sore throat. Cardiovascular: Denies Chest pain, chest pressure, palpitations, extremity swelling Respiratory: + SOB. + mild productive cough (rod/brown sputum). Gastrointestinal: Denies nausea, vomiting, constipation, diarrhea. + mild abd pain at upper quadrants. Genitourinary: Denies urinary symptoms including dysuria Musculoskeletal: Denies weakness, muscle aches/pain, joint aches/pain Neurological: Denies numbness, tingling, focal weakness. + mild headache, 3/10. Allergies Allergy/AdvReac Type Severity Reaction Status Date / Time acesulfame Allergy Severe SEVERE Verified 07/26/20 19:02 RASH & VOMIT naloxone Allergy Severe SEVERE Verified 07/25/20 15:30 RASH & VOMIT Sulfa (Sulfonamide Allergy Intermediate RASH / Verified 07/25/20 15:30 Antibiotics) ITCHINESS quetiapine [From Seroquel] AdvReac Intermediate Nightmare Unverified 07/25/20 15:30 amitriptyline AdvReac Unknown Unknown Unverified 07/25/20 15:30 morphine AdvReac Unknown Unknown Unverified 07/25/20 15:30 Home Medications Medication Instructions Recorded Confirmed Type artificial saliva (cmce-lytes) 1 spray PO 5XD PRN 10/31/18 07/25/20 History gabapentin 900 mg PO BID 10/31/18 07/25/20 History prazosin 4 mg PO HS 10/31/18 07/25/20 History propranolol 80 mg PO BID 10/31/18 07/25/20 History sennosides 8.6 mg PO BID PRN 10/31/18 07/25/20 History torsemide 40 mg PO QAM 10/31/18 07/25/20 History triamcinolone acetonide 1 applic TOPICAL BID 10/31/18 07/25/20 History alogliptin 12.5 mg tablet 12.5 mg PO DAILY 08/20/19 07/25/20 History sertraline 100 mg tablet 150 mg PO DAILY tab 08/20/19 07/25/20 History trazodone 50 mg tablet 100 mg PO HS PRN tab 08/20/19 07/25/20 History atorvastatin 20 mg PO HS 07/23/20 07/25/20 History cefdinir 300 mg PO BID 10 Days #20 cap 07/23/20 07/25/20 Rx finasteride 5 mg PO DAILY 07/23/20 07/25/20 History losartan 100 mg PO DAILY 07/23/20 07/25/20 History niacin [Nicotinic Acid] 500 mg PO DAILY 07/23/20 07/25/20 History pantoprazole 20 mg PO BID 07/23/20 07/25/20 History azathioprine [Imuran] 50 mg PO QID #30 tab 07/28/20 Rx buprenorphine HCl 8 mg SUBLINGUAL BID #10 tab 07/28/20 Rx fluconazole 400 mg PO QAM #13 tab 07/28/20 Rx fluticasone furoate [Arnuity 1 puff INHALATION QAM #1 ea 07/28/20 Rx Ellipta] umeclidinium [Incruse Ellipta] 1 puff INHALATION QAM #1 ea 07/28/20 Rx Patient History Medical History (Updated 07/28/20 @ 20:49 by Celia Lion MD) Acute cholecystitis due to biliary calculus chronic cholecystitis, Acute renal failure Anemia Arthralgia of multiple sites Bullous pemphigoid Chronic pain Chronic pain COPD (chronic obstructive pulmonary disease) DM type 2 (diabetes mellitus, type 2) Hepatitis C antibody positive in blood History of intravenous drug abuse Hypertension Hypoxia Memory loss MRSA infection PATIENT STATES WAS 1-2 YEARS AGO Neuropathy Obesity Rheumatoid arthritis Surgical History History of incision and drainage Family History Other Hypertension Social History (Updated 07/25/20 @ 20:24 by Jian Lynch MD) Smoking Status: Former smoker Tobacco Type: Cigarettes packs per day: 2; Years Smoked: 20; Do You Dip or Chew Tobacco: No; Hx Alcohol Use: No Hx Substance Use: No Preferred Language: Chinese Communication Ability: Effective Door Frame Builder Required: No Beliefs That Will Affect Care: None marital status: Current Living Situation: Spouse Feels Safe at Home: Yes Safety Concerns: Feels Safe At This Time Assistive Devices: None Physical Exam Constitutional: WD/WN, vitals as above well developed and well nourished Eyes: PERRL, conjunctivae normal, anicteric sclerae Neck: trachea midline, no thyromegaly Respiratory: normal respiratory effort, lungs clear to auscultation Cardiovascular: RRR, no murmur, no edema Gastrointestinal (Abdomen): Percussion/Palpation: abdomen soft cholecystotomy tube at RUQ, working well, mild tenderness at RUQ. no rebound pain, no distend, Musculoskeletal: no cyanosis or clubbing, extremities motor strength 5/5 Neurologic: awake Psychiatric: Orientation: alert and oriented x 3 Results & Data ([facility]) Vital Signs (Past 12 Hours) Vital Signs Temp Pulse Pulse Resp BP Pulse Ox 07/28/20 20:25 37.0 C 67 16 156/85 H 98 07/28/20 15:17 36.6 C 71 96 H 16 99/61 L 96 Laboratory Results Abnormal lab results 07/28/20 07/28/20 07/28/20 Range/Units 07:16 07:16 08:35 WBC 4.65 L (4.8-10.8) K/uL RBC 3.15 L (4.7-6.1) M/uL Hgb 9.0 L (14.0-18.0) g/dL Hct 28.8 L (42-52) % MCHC 31.3 L (32-36) g/dL RDW Std Deviation 47.0 H (36.4-46.3) fL Lymph # (Auto) 0.91 L (1.2-3.4) K/uL Immature Gran # (Auto) 0.03 H (0.00-0.02) K/uL Potassium 3.0 L (3.5-5.1) mmol/L Chloride 95 L (98-107) mmol/L Carbon Dioxide 36 H (21-32) mmol/L Glucose 110 H (70-99) mg/dl POC Glucose 189 H (70-99) mg/dl ALT 10 L (12-78) U/L Alkaline Phosphatase 134 H (45-117) U/L C-Reactive Protein (0-0.29) mg/dl Albumin 2.4 L (3.4-5.0) gm/dl Globulin 5.0 H (2.5-4.0) gm/dl Albumin/Globulin Ratio 0.5 L (0.9-2) Hepatitis C Antibody (Neg) 07/28/20 07/28/20 07/28/20 Range/Units 12:29 16:31 16:31 WBC (4.8-10.8) K/uL RBC (4.7-6.1) M/uL Hgb (14.0-18.0) g/dL Hct (42-52) % MCHC (32-36) g/dL RDW Std Deviation (36.4-46.3) fL Lymph # (Auto) (1.2-3.4) K/uL Immature Gran # (Auto) (0.00-0.02) K/uL Potassium (3.5-5.1) mmol/L Chloride (98-107) mmol/L Carbon Dioxide (21-32) mmol/L Glucose (70-99) mg/dl POC Glucose 106 H (70-99) mg/dl ALT (12-78) U/L Alkaline Phosphatase (45-117) U/L C-Reactive Protein 3.95 H (0-0.29) mg/dl Albumin (3.4-5.0) gm/dl Globulin (2.5-4.0) gm/dl Albumin/Globulin Ratio (0.9-2) Hepatitis C Antibody Prelim Pos A (Neg) 07/28/20 07/28/20 Range/Units 17:01 20:30 WBC (4.8-10.8) K/uL RBC (4.7-6.1) M/uL Hgb (14.0-18.0) g/dL Hct (42-52) % MCHC (32-36) g/dL RDW Std Deviation (36.4-46.3) fL Lymph # (Auto) (1.2-3.4) K/uL Immature Gran # (Auto) (0.00-0.02) K/uL Potassium (3.5-5.1) mmol/L Chloride (98-107) mmol/L Carbon Dioxide (21-32) mmol/L Glucose (70-99) mg/dl POC Glucose 122 H 141 H (70-99) mg/dl ALT (12-78) U/L Alkaline Phosphatase (45-117) U/L C-Reactive Protein (0-0.29) mg/dl Albumin (3.4-5.0) gm/dl Globulin (2.5-4.0) gm/dl Albumin/Globulin Ratio (0.9-2) Hepatitis C Antibody (Neg) source 07/25/2020 Blood Procedure/Result Aerobic Blood Culture - Preliminary Anaerobic Blood Culture - Preliminary No growth in Anaerobic bottle after 48 hours. Diagnostic Findings ABDOMEN AND PELVIS CT WITHOUT CONTRAST CT DOSE: 1653.60 mGy.cm HISTORY: Acute fever fever, recent biliary drain TECHNIQUE: Multiaxial CT images of the abdomen and pelvis were performed without contrast. A dose lowering technique was utilized adhering to the principles of ALARA. COMPARISON STUDY: CT abdomen and pelvis 06/06/2020 FINDINGS: Mitral annular calcifications. Bibasilar opacities suggestive of atelectasis. 6 mm fissural nodule of the right middle lobe is partially imaged no pneumatosis or pneumoperitoneum. Limited evaluation of the solid abdominal use of IV contrast. Hepatosplenomegaly. The spleen measures 18.8 cm in length. Mild marginal nodularity of the liver. No hepatic mass identified. Cholelithiasis with gallbladder wall thickening and pericholecystic fluid/edema redemonstrated. There is decreased inflammatory changes compared to the prior study with interval percutaneous transhepatic cholecystostomy catheter. The distal tip of the catheter terminates within the mid to inferior gallbladder lumen appears to be in appropriate positioning. Periportal and precaval adenopathy with lymph nodes measuring up to 1.3 cm, similar to comparison. Mild dilation of the common bile duct measuring 11 mm. No choledocholithiasis identified. Unremarkable kidneys. No hydronephrosis. Coarse calcifications of the prostate. Partial distention of the urinary bladder. Atherosclerotic plaque of the abdominal aorta without aneurysm. No adenopathy. No bowel obstruction or bowel wall thickening. Mild colonic diverticulosis. Normal appendix. Unremarkable soft tissues. No acute fracture. Grade 1 anterolisthesis L5 on S1 with chronic bilateral L5 pars defects. IMPRESSION: 1. Cholelithiasis with findings suggestive of acute cholecystitis. There is decreased pericholecystic inflammatory changes status post placement of a percutaneous cholecystostomy catheter which appears to be in satisfactory positioning. 2. No pneumoperitoneum or intra-abdominal fluid collection. 3. Mild periportal and precaval adenopathy, likely reactive. 4. Hepatosplenomegaly with possible cirrhosis. 5. Colonic diverticulosis. 6. Mild dilation of the common bile duct. Correlate with LFTs.
[2020-07-29] MEDS ORDERED: FLUCONAZOLE 100 MG TAB PO SCH (09:00)
--- NOTE | 2020-07-30 13:31 | Consultation Report ---
OPHTHALMOLOGY CONSULTATION DATE OF SERVICE: 07/28/2020 CHIEF COMPLAINT AND HISTORY OF PRESENT ILLNESS: This is a 65-year-old male with severe COPD on chronic oxygen, had a recent cholecystotomy done via interventional radiology due to being a poor candidate for cholecystectomy due to his medical comorbidities including renal failure. He presented to the [facility] Emergency Department on 07/23/2020 for fever. He had blood cultures done at that time and was started on cefdinir empirically. He was discharged, but he returned on 07/25/2020 because of yeast growing on 2/2 bottles for his blood cultures. He was started on caspofungin empirically and admitted for further workup. The source of the yeast is currently unclear on a clinical basis according to infectious disease, but potential sources include gallbladder or his immunosuppression being on azathioprine. He has not had any complaints regarding his eyes or vision during his time at the hospital or prior, although he has felt that he needs stronger reading glasses as of late. He does see the [facility] for his routine eye exams. PAST MEDICAL HISTORY: COPD, hypertension, type 2 diabetes, rheumatoid arthritis, anemia, obesity. PAST SURGICAL HISTORY: Cholecystotomy, colonoscopy, vasectomy, fusion of the wrist joint, cataract surgery in both eyes in 2017. MEDICATIONS: Please see medication list. ALLERGIES: SULFA ANTIBIOTICS, AMITRIPTYLINE, SULFASALAZINE, MORPHINE, SEROQUEL, SUBOXONE. SOCIAL HISTORY: He is a former smoker. FAMILY HISTORY: Noncontributory. PHYSICAL EXAMINATION: His visual acuity at near with correction is 20/25 in both eyes. His intraocular pressures are 10 in both eyes. His pupils are both 3 mm and react down to 2 mm with no afferent pupillary defect. His extraocular movements are full in both eyes. His confrontational visual esparza are full in both eyes to confrontation. His anterior segment exam, his lids, lashes and lacrimal glands show mildly floppy eyelids in both eyes. The conjunctivae and sclerae are white and quiet bilaterally. His corneas are clear bilaterally. His anterior chamber is deep and formed in both eyes. His iris looks normal in both eyes and he has posterior chamber intraocular lenses in both eyes as well. His dilated fundus exam shows a cup-to-disc ratio of 0.35 in the right, macula shows no hemorrhage and the vessels and peripheral retina are within normal limits. On the left side his cup-to-disc ratio is 0.4 with a sharp and pink nerve. The macula, vessels and peripheral retina are all within normal limits. ASSESSMENT AND PLAN: This is a 65-year-old male admitted for fungemia with ophthalmology consulted to look for evidence of ophthalmic manifestations of fungemia. There are no signs of fungal infection on exam including his dilated fundus exam. I recommend that he continue his routine eye exams at the [facility] as scheduled. He is welcome to see us at [facility] eye care for any acute issues that may arise in the future. Thank you for this consult. SHANAE
[2020-07-31 09:37] LABS: Hepatitis C Vira RNA (Log) PCR <1.18 NOT DETECTED Log IU/mL (NOT DETECTED); Hepatitis C Viral RNA by PCR <15 NOT DETECTED IU/mL (NOT DETECTED)
--- NOTE | 2020-08-13 02:43 | Consultation Report ---
DATE OF CONSULTATION: 07/28/2020 OPHTHALMOLOGY CONSULTATION DATE OF SERVICE: 07/28/2020 CHIEF COMPLAINT AND HISTORY OF PRESENT ILLNESS: This is a 65-year-old male with severe COPD on chronic oxygen, had a recent cholecystotomy done via interventional radiology due to being a poor candidate for cholecystectomy due to his medical comorbidities including renal failure. He presented to the [facility] Emergency Department on 07/23/2020 for fever. He had blood cultures done at that time and was started on cefdinir empirically. He was discharged, but he returned on 07/25/2020 because of yeast growing on 2/2 bottles for his blood cultures. He was started on caspofungin empirically and admitted for further workup. The source of the yeast is currently unclear on a clinical basis according to infectious disease, but potential sources include gallbladder or his immunosuppression being on azathioprine. He has not had any complaints regarding his eyes or vision during his time at the hospital or prior, although he has felt that he needs stronger reading glasses as of late. He does see the [facility] for his routine eye exams. PAST MEDICAL HISTORY: COPD, hypertension, type 2 diabetes, rheumatoid arthritis, anemia, obesity. PAST SURGICAL HISTORY: Cholecystotomy, colonoscopy, vasectomy, fusion of the wrist joint, cataract surgery in both eyes in 2017. MEDICATIONS: Please see medication list. ALLERGIES: SULFA ANTIBIOTICS, AMITRIPTYLINE, SULFASALAZINE, MORPHINE, SEROQUEL, SUBOXONE. SOCIAL HISTORY: He is a former smoker. FAMILY HISTORY: Noncontributory. PHYSICAL EXAMINATION: His visual acuity at near with correction is 20/25 in both eyes. His intraocular pressures are 10 in both eyes. His pupils are both 3 mm and react down to 2 mm with no afferent pupillary defect. His extraocular movements are full in both eyes. His confrontational visual esparza are full in both eyes to confrontation. His anterior segment exam, his lids, lashes and lacrimal glands show mildly floppy eyelids in both eyes. The conjunctivae and sclerae are white and quiet bilaterally. His corneas are clear bilaterally. His anterior chamber is deep and formed in both eyes. His iris looks normal in both eyes and he has posterior chamber intraocular lenses in both eyes as well. His dilated fundus exam shows a cup-to-disc ratio of 0.35 in the right, macula shows no hemorrhage and the vessels and peripheral retina are within normal limits. On the left side his cup-to-disc ratio is 0.4 with a sharp and pink nerve. The macula, vessels and peripheral retina are all within normal limits. ASSESSMENT AND PLAN: This is a 65-year-old male admitted for fungemia with ophthalmology consulted to look for evidence of ophthalmic manifestations of fungemia. There are no signs of fungal infection on exam including his dilated fundus exam. I recommend that he continue his routine eye exams at the OR as scheduled. He is welcome to see us at [facility] for any acute issues that may arise in the future. Thank you for this consult.
== END 2020-07-28 23:28 | disposition short-term general hospital (02) | DRG 868 ==
LOC: 3N 15:13 → ED 15:13 → SUATTDRO 21:46 → 3N 22:56 → SUATTDRO 07-26 17:47

== ENCOUNTER 2022-09-10 16:05 | Observation (INO) ==
--- NOTE | 2022-09-10 16:16 | ED Triage Note ---
Date of Service September 10, 2022 History of Present Illness This patient was briefly evaluated while in triage. An abbreviated physical exam was performed. This patient is a 67-year-old Male who presents to the ED for evaluation of abd pain and bloody diarrhea with cramping. Rectal bleeding x 3 days. Open wounds from diarrhea. ABd pain 8/10 described as cramping. L knee replacement surgery [address] Alvarado in [place] and recently at rehab and then home last few days. Physical Exam GENERAL: 67 year old male. In no acute distress. SKIN: No lesions or rashes. HEART: Regular rate and rhythm. LUNGS: Clear to auscultation. ABDOMEN: Bowel sounds normoactive. No guarding or rigidity. Generalized abd ttp noted. NEURO: Alert and oriented. No deficits. MUSCULOSKELETAL: No deformities to inspection of the extremities. PSYCH: Patient is pleasant and answers all questions appropriately. Initial orders for labs and / or imaging were placed and patient was placed in the waiting area until a bed is available. Please see further documentation for the full ED course.
[2022-09-10 18:28] LABS: Basophils # (auto) 0.07 K/uL (0-0.2); Basophils % (auto) 0.8 %; Eosinophils # (auto) 0.36 K/uL (0-0.50); Eosinophils % (auto) 3.9 %; Hematocrit (blood only) 31.8 % (42.0-52.0); Hemoglobin 9.6 g/dl (14.0-18.0); Immature Granulocytes # (auto) 0.23 K/uL (0.01-0.20); Immature Granulocytes % (auto) 2.5 %; Lymphocytes # (auto) 1.21 K/uL (1.2-3.4); Lymphocytes % (auto) 13.2 %; Mean Corpuscular Hemoglobin 23.5 pg (25.0-34.0); Mean Corpuscular Hgb Conc 30.2 g/dL (32.0-36.0); Mean Corpuscular Volume 77.8 fL (80.0-100.0); Mean Platelet Volume 8.5 fL (9.4-12.4); Monocytes # (auto) 0.81 K/uL (0.11-0.59); Monocytes % (auto) 8.9 %; Neutrophils # (auto) 6.47 K/uL (1.40-6.50); Neutrophils % (auto) 70.7 %; Platelet Count 485 K/uL (130-400); RDW Coefficient of Variation 15.2 % (11.5-14.5); RDW Standard Deviation 42.5 fL (36.4-46.3); Red Blood Count 4.09 M/uL (4.70-6.10); White Blood Count 9.15 K/ul (4.8-10.8)
[2022-09-10 18:38] LABS: Alanine Aminotransferase 17 U/L (7-52); Albumin Globulin Ratio 0.7 (0.9-2); Albumin Level 3.4 gm/dl (3.4-5.0); Alkaline Phosphatase 276 U/L (34-104); Anion Gap 7 (3-11); Aspartate Aminotransferase 20 U/L (13-39); BUN Creatinine Ratio 12.5 (10-20); Bilirubin,Total 0.5 mg/dl (0.2-1.0); Blood Urea Nitrogen 11 mg/dl (6-23); Calcium 9.4 mg/dl (8.6-10.3); Carbon Dioxide 27 mmol/L (21-32); Chloride 101 mmol/L (98-107); Est GFR (African American) 103.7 ml/min; Est GFR (Non-African American) 89.5 ml/min; Globulin 5.2 gm/dl (2.5-4.0); Glucose 105 mg/dl (70-99(Fasting)); Lipase 6 U/L (11-82); Potassium 4.4 mmol/L (3.5-5.1); Sodium 135 mmol/L (136-145); Total Protein 8.6 gm/dl (6.0-8.3)
[2022-09-10 19:00] LABS: Partial Thromboplastin Ratio 1.2; Partial Thromboplastin Time 34.2 Seconds (21.0-31.0); Prothrombin Time 11.2 Seconds (9.0-12.0)
--- NOTE | 2022-09-10 19:09 | Emergency Department Note ---
Impression & Plan Acute lower GI bleeding, Abdominal pain, acute, left lower quadrant ED Provider Note NAME: MICHAEL MCGUIRE AGE: 67 SEX: M : 1955 ARRIVES VIA: Ambulance INFORMANT: Patient, ED PROVIDER(S): Haroldo Velasquez DO CHIEF COMPLAINT: Abdominal pain HPI: The patient is a 67-year-old male who has a history of diabetes who presented to the emergency department for abdominal pain. He started noticing diarrhea over the course of the last few days as well. He has been having incontinence of stool. He has been passing margaret blood. The patient came to the emergency department via ambulance. He did not see his family doctor for the symptoms. He currently does not take any blood thinners. He was recently on an antibiotic. ROS: See above HPI for pertinent positives & negatives. A total of 10 systems reviewed and were otherwise negative. PAST MEDICAL HISTORY: See Below PAST SURGICAL HISTORY: See Below FAMILY HISTORY: See Below SOCIAL HISTORY: See Below HOME MEDICATIONS: See Below ALLERGIES: See Below VITALS: See Below PHYSICAL EXAMINATION: GENERAL: Patient is awake alert in no acute distress patient is resting comfortably and showing no signs of anxiety EYES: The conjunctivae are clear. The pupils are round and reactive. EARS, NOSE, MOUTH AND THROAT: The nose is without any evidence of any deformity. Mucous membranes are moist. Tongue is midline. NECK: The neck is nontender and supple. RESPIRATORY: Normal respiratory effort is noted there is no evidence of wheezing rhonchi or rales CARDIOVASCULAR: Regular rate and rhythm noted there no murmurs rubs or gallops normal S1 normal S2. GASTROINTESTINAL: The abdomen is distended and diffusely tender. There is specific left lower quadrant tenderness to palpation but no guarding rigidity. MUSCULOSKELETAL/EXTREMITIES: There is no evidence of gross deformity full range of motion is noted in the hips and shoulders. SKIN: Skin is warm and dry. There are chronic healing wounds on the left leg. NEUROLOGIC: Patient is awake alert and oriented x3. MEDICAL DECISION MAKING: The patient is a 67-year-old male who presented to the emergency department for an evaluation of abdominal pain and rectal bleeding. The patient had multiple episodes of rectal bleeding. The patient was treated with IV fluids in the emergency department. He was reevaluated multiple times. I discussed the patient's laboratory and radiographic studies with him. He was found to have anemia compared to his previous hemoglobin. Vital signs were not unstable. I discussed the patient's condition with the on-call [facility] hospitalist. They have agreed to evaluate the patient in the emergency department for further management and disposition. Triage Nursing notes reviewed. Prior medical records reviewed Vital Signs: reviewed and remarkable for hypertension. Differential diagnosis: Diverticulosis, AVM, coagulopathy, colitis, inflammatory bowel disease, malignancy, Rosalinda-Ricci tear, esophagitis, peptic ulcer disease, variceal bleed, gastritis, epistaxis, fissure, hemorrhoids, as well as other pathologies. ER treatment provided: See below Diagnostics interpreted by me: ECG: none Cardiac Monitoring: An order was placed for continuous cardiac monitoring. The monitor shows a rate of 96 bpm with sinus rhythm. Laboratory studies: As stated above and show below. Imaging studies: See below. Radiographic imaging was reviewed by myself Consultation(s): I discussed this case with Dr. Resendez [facility] Past Med/Surg History Medical History Acute cholecystitis due to biliary calculus chronic cholecystitis, Acute renal failure Anemia Arthralgia of multiple sites Bullous pemphigoid Chronic pain Chronic pain COPD (chronic obstructive pulmonary disease) DM type 2 (diabetes mellitus, type 2) Hepatitis C antibody positive in blood History of intravenous drug abuse Hypertension Hypoxia Memory loss MRSA infection PATIENT STATES WAS 1-2 YEARS AGO Neuropathy Obesity Rheumatoid arthritis Surgical History History of incision and drainage Family History Other Hypertension Social History Smoking Status: Never smoker Tobacco Type: Cigarettes packs per day: 2; Do You Dip or Chew Tobacco: No; Hx Alcohol Use: No Hx Substance Use: No Preferred Language: Malay Communication Ability: Effective [employer] Required: No Beliefs That Will Affect Care: None marital status: Current Living Situation: Spouse Feels Safe at Home: Yes Assistive Devices: Oxygen - Continuous Allergies Allergies Allergy/AdvReac Type Severity Reaction Status Date / Time acesulfame Allergy Severe SEVERE Verified 02/24/22 14:24 RASH & VOMIT naloxone Allergy Severe SEVERE Verified 02/24/22 14:24 RASH & VOMIT Sulfa (Sulfonamide Allergy Intermediate RASH / Verified 02/24/22 14:24 Antibiotics) ITCHINESS quetiapine [From Seroquel] AdvReac Intermediate Nightmare Unverified 02/24/22 1 4:24 amitriptyline AdvReac Unknown Unknown Unverified 02/24/22 14:24 morphine AdvReac Unknown Unknown Unverified 02/24/22 14:24 Home Meds Home Medications Medication Instructions Recorded Confirmed artificial 1 spray PO 5XD PRN Dry Mouth 10/31/18 07/25/20 saliva(carboxymethylcellulose-electrolytes) spray pump gabapentin 300 mg capsule 900 mg PO BID 10/31/18 07/25/20 prazosin 2 mg capsule 4 mg PO HS 10/31/18 07/25/20 propranolol 80 mg tablet 80 mg PO BID 10/31/18 07/25/20 sennosides 8.6 mg tablet 8.6 mg PO BID PRN Constipation 10/31/18 07/25/20 torsemide 20 mg tablet 40 mg PO QAM 10/31/18 07/25/20 triamcinolone acetonide 0.5 % 1 applic topical BID 10/31/18 07/25/20 topical cream alogliptin 12.5 mg tablet 12.5 mg PO DAILY 08/20/19 07/25/20 sertraline 100 mg tablet 150 mg PO DAILY 08/20/19 07/25/20 trazodone 50 mg tablet 100 mg PO HS PRN sleep 08/20/19 07/25/20 atorvastatin 20 mg tablet 20 mg PO HS 07/23/20 07/25/20 finasteride 5 mg tablet 5 mg PO DAILY 07/23/20 07/25/20 losartan 100 mg tablet 100 mg PO DAILY 07/23/20 07/25/20 niacin 500 mg capsule,extended 500 mg PO DAILY 07/23/20 07/25/20 release pantoprazole 20 mg tablet,delayed 20 mg PO BID 07/23/20 07/25/20 release Previous Rx's Medication Instructions Recorded azathioprine 50 mg tablet (Imuran) 50 mg PO QID #30 tabs 07/28/20 buprenorphine HCl 8 mg sublingual 8 mg sublingual BID #10 tabs 07/28/20 tablet fluconazole 100 mg tablet 400 mg PO QAM #13 tabs 07/28/20 fluticasone furoate 100 1 puff inhalation QAM #1 ea 07/28/20 mcg/actuation blister powder for inhalation (Arnuity Ellipta) umeclidinium 62.5 mcg/actuation 1 puff inhalation QAM #1 ea 07/28/20 blister powder for inhalation (Incruse Ellipta) Results & Data (ED) Vital Signs Vital Signs - 24 hr 09/10/22 16:23 09/10/22 20:00 09/10/22 21:00 Temperature 36.8 C Temperature Source Temporal Artery Scan Pulse Rate 99 H 109 H Pulse Rate [Apical] 84 Respiratory Rate 16 16 Respiratory Depth Normal Blood Pressure 134/89 Blood Pressure [Right Arm] 134/87 Blood Pressure Mean 104 Blood Pressure Mean [Right Arm] 102 Pulse Oximetry 98 94 Oxygen Delivery Method Room Air Room Air Sepsis Recent Fever Within 48 Hours No Sepsis New/Unexplained Change in Mental Status N/A Sepsis Action Taken by Nursing No Action Required 09/10/22 21:00 Temperature Temperature Source Pulse Rate 96 H Pulse Rate [Apical] Respiratory Rate 24 Respiratory Depth Blood Pressure 154/94 H Blood Pressure [Right Arm] Blood Pressure Mean 114 Blood Pressure Mean [Right Arm] Pulse Oximetry 98 Oxygen Delivery Method Room Air Sepsis Recent Fever Within 48 Hours Sepsis New/Unexplained Change in Mental Status Sepsis Action Taken by Intermediate Medications Current Medication List: was personally reviewed by me Laboratory Data Attestation: I reviewed the patient's lab results. 09/10/22 18:00 09/10/22 18:00 Lab Results 09/10/22 09/10/22 09/10/22 Range/Units 18:00 18:00 18:00 WBC 9.15 (4.8-10.8) K/ul RBC 4.09 L (4.70-6.10) M/uL Hgb 9.6 L (14.0-18.0) g/dl Hct 31.8 L (42.0-52.0) % MCV 77.8 L (80.0-100.0) fL MCH 23.5 L (25.0-34.0) pg MCHC 30.2 L (32.0-36.0) g/dL RDW Std Deviation 42.5 (36.4-46.3) fL RDW Coeff of Fely 15.2 H (11.5-14.5) % Plt Count 485 H (130-400) K/uL MPV 8.5 L (9.4-12.4) fL Immature Gran % (Auto) 2.5 % Neut % (Auto) 70.7 % Lymph % (Auto) 13.2 % [place] % (Auto) 8.9 % Eos % (Auto) 3.9 % Baso % (Auto) 0.8 % Neut # (Auto) 6.47 (1.40-6.50) K/uL Lymph # (Auto) 1.21 (1.2-3.4) K/uL [place] # (Auto) 0.81 H (0.11-0.59) K/uL Eos # (Auto) 0.36 (0-0.50) K/uL Baso # (Auto) 0.07 (0-0.2) K/uL Immature Gran # (Auto) 0.23 H (0.01-0.20) K/uL PT 11.2 (9.0-12.0) Seconds INR 1.0 (0.9-1.1) APTT 34.2 H (21.0-31.0) Seconds PTT Ratio 1.2 Sodium 135 L (136-145) mmol/L Potassium 4.4 (3.5-5.1) mmol/L Chloride 101 (98-107) mmol/L Carbon Dioxide 27 (21-32) mmol/L Anion Gap 7 (3-11) BUN 11 (6-23) mg/dl Creatinine 0.88 (0.6-1.4) mg/dl Est Cr Clr Drug Dosing Not Reportable Est GFR ( Amer) 103.7 ml/min Est GFR (Non-Af Amer) 89.5 ml/min BUN/Creatinine Ratio 12.5 (10-20) Glucose 105 H (70-99(Fasting)) mg/dl Calcium 9.4 (8.6-10.3) mg/dl Total Bilirubin 0.5 (0.2-1.0) mg/dl AST 20 (13-39) U/L ALT 17 (7-52) U/L Alkaline Phosphatase 276 H (34-104) U/L Total Protein 8.6 H (6.0-8.3) gm/dl Albumin 3.4 (3.4-5.0) gm/dl Globulin 5.2 H (2.5-4.0) gm/dl Albumin/Globulin Ratio 0.7 L (0.9-2) Lipase 6 L (11-82) U/L Urine Color Urine Appearance (Clear) Urine pH (4.5-7.5) Ur Specific [place] (1.000-1.030) Urine Protein (Negative) Urine Glucose (UA) (Negative) Urine Ketones (Negative) Urine Blood (Negative) Urine Nitrite (Negative) Urine Bilirubin (Negative) Urine Urobilinogen (Negative) Ur Leukocyte Esterase (Negative) Urine WBC (Auto) (0-5) /hpf Urine RBC (Auto) (0-4) /hpf U Hyaline Cast (Auto) (0-5) /lpf U Epithel Cells (Auto) (0-5) /lpf Urine Bacteria (Auto) (Negative) Blood Type Antibody Screen 09/10/22 09/10/22 Range/Units 18:06 20:52 WBC (4.8-10.8) K/ul RBC (4.70-6.10) M/uL Hgb (14.0-18.0) g/dl Hct (42.0-52.0) % MCV (80.0-100.0) fL MCH (25.0-34.0) pg MCHC (32.0-36.0) g/dL RDW Std Deviation (36.4-46.3) fL RDW Coeff of Fely (11.5-14.5) % Plt Count (130-400) K/uL MPV (9.4-12.4) fL Immature Gran % (Auto) % Neut % (Auto) % Lymph % (Auto) % [place] % (Auto) % Eos % (Auto) % Baso % (Auto) % Neut # (Auto) (1.40-6.50) K/uL Lymph # (Auto) (1.2-3.4) K/uL [place] # (Auto) (0.11-0.59) K/uL Eos # (Auto) (0-0.50) K/uL Baso # (Auto) (0-0.2) K/uL Immature Gran # (Auto) (0.01-0.20) K/uL PT (9.0-12.0) Seconds INR (0.9-1.1) APTT (21.0-31.0) Seconds PTT Ratio Sodium (136-145) mmol/L Potassium (3.5-5.1) mmol/L Chloride (98-107) mmol/L Carbon Dioxide (21-32) mmol/L Anion Gap (3-11) BUN (6-23) mg/dl Creatinine (0.6-1.4) mg/dl Est Cr Clr Drug Dosing Est GFR ( Amer) ml/min Est GFR (Non-Af Amer) ml/min BUN/Creatinine Ratio (10-20) Glucose (70-99(Fasting)) mg/dl Calcium (8.6-10.3) mg/dl Total Bilirubin (0.2-1.0) mg/dl AST (13-39) U/L ALT (7-52) U/L Alkaline Phosphatase (34-104) U/L Total Protein (6.0-8.3) gm/dl Albumin (3.4-5.0) gm/dl Globulin (2.5-4.0) gm/dl Albumin/Globulin Ratio (0.9-2) Lipase (11-82) U/L Urine Color Yellow Urine Appearance Clear (Clear) Urine pH 7.5 (4.5-7.5) Ur Specific [place] > 1.045 H (1.000-1.030) Urine Protein Trace H (Negative) Urine Glucose (UA) Negative (Negative) Urine Ketones Negative (Negative) Urine Blood Negative (Negative) Urine Nitrite Negative (Negative) Urine Bilirubin Negative (Negative) Urine Urobilinogen Negative (Negative) Ur Leukocyte Esterase Negative (Negative) Urine WBC (Auto) 5-10 H (0-5) /hpf Urine RBC (Auto) 0-4 (0-4) /hpf U Hyaline Cast (Auto) 1-5 (0-5) /lpf U Epithel Cells (Auto) 20-30 H (0-5) /lpf Urine Bacteria (Auto) Negative (Negative) Blood Type A Positive Antibody Screen NEGATIVE Administered Medications Discontinued Medications Ioversol (Optiray 320 100ml) 92 ml IV ONCE ONE Stop: 09/10/22 19:31 Last Admin: 09/10/22 19:30 Dose: 92 ml Documented By: AYAKA Imaging Data Attestation: I personally reviewed and interpreted this imaging study as follows: My Impression: CT of the abdomen and pelvis was obtained in the emergency department. My interpretation is no free air or bowel obstruction, final report below. Radiologist's Impression: Abdomen/Pelvis CT 09/10/22 16:26 Exam(s): CT ABDOMEN + PELVIS With Contrast IV Amt: 92ml EXAM: CT Abdomen and Pelvis With Intravenous Contrast CLINICAL HISTORY: Reason for exam: Diarrhea, abd pain. TECHNIQUE: Axial computed tomography images of the abdomen and pelvis with intravenous contrast. CTDI is 27.17 mGy and DLP is 1564.22 mGy-cm. Automated exposure control was utilized for the study. A dose lowering technique was utilized adhering to the principles of ALARA. CONTRAST: Patient received 92ml of IV contrast COMPARISON: 07/23/2020 FINDINGS: Lung bases: Unremarkable. No mass. No consolidation. ABDOMEN: Liver: Unremarkable. No mass. Gallbladder and bile ducts: Postoperative changes prior cholecystectomy. No ductal dilation. Pancreas: Unremarkable. No mass. No ductal dilation. Spleen: Unremarkable. No splenomegaly. Adrenals: Unremarkable. No mass. Kidneys and ureters: Unremarkable. No solid mass. No hydronephrosis. Stomach and bowel: Unremarkable. No obstruction. No mucosal thickening. PELVIS: Appendix: No findings to suggest acute appendicitis. Bladder: Unremarkable. No mass. Reproductive: Unremarkable as visualized. ABDOMEN and PELVIS: Intraperitoneal space: Unremarkable. No free air. No significant fluid collection. 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 . Soft tissues: Unremarkable. Vasculature: Unremarkable. No abdominal aortic aneurysm. Lymph nodes: Unremarkable. No enlarged lymph nodes. IMPRESSION: No acute findings in the abdomen or pelvis. Electronically signed by: Jono Kovacs MD 09/10/22 20:02 PM Discharge Plan Visit Data Chief Complaint: Rectal Bleed Stated Complaint: AB PAIN, RECTAL SORES & BLEED ED Provider: Haroldo Velasquez Discharge Problem: Acute lower GI bleeding, Abdominal pain, acute, left lower quadrant Patient Disposition: Being Evaluated by Hospitalist Forms Stand Alone Forms: My [facility] Prescriptions Prescriptions: No Action sertraline 100 mg tablet 150 mg PO DAILY trazodone 50 mg tablet 100 mg PO HS PRN (Reason: sleep) alogliptin 12.5 mg tablet 12.5 mg PO DAILY sennosides 8.6 mg Tablet 8.6 mg PO BID PRN (Reason: Constipation) propranolol 80 mg Tablet 80 mg PO BID torsemide 20 mg Tablet 40 mg PO QAM triamcinolone acetonide 0.5 % Cream 1 applic TOPICAL BID Rx Instructions: Apply a small amount to skin twice a day as needed for itching. Do not apply to face or skin folds. gabapentin 300 mg Capsule 900 mg PO BID prazosin 2 mg Capsule 4 mg PO HS artificial saliva (cmce-lytes) [place] With Pump 1 spray PO 5XD PRN (Reason: Dry Mouth) pantoprazole 20 mg Tablet,Delayed Release (Dr/Ec) 20 mg PO BID atorvastatin 20 mg Tablet 20 mg PO HS niacin 500 mg Capsule, Extended Release 500 mg PO DAILY losartan 100 mg Tablet 100 mg PO DAILY finasteride 5 mg Tablet 5 mg PO DAILY fluconazole 100 mg Tablet 400 mg PO QAM Qty: 13 0RF azathioprine [Imuran] 50 mg Tablet 50 mg PO QID Qty: 30 0RF buprenorphine HCl 8 mg Tablet, Sublingual 8 mg sublingual BID Qty: 10 0RF Incruse Ellipta 62.5 mcg/actuation Blister With Device 1 puff inhalation QAM Qty: 1 0RF Arnuity Ellipta 100 mcg/actuation Blister With Device 1 puff inhalation QAM Qty: 1 0RF Referrals Referrals: Doc Morejon MD [Primary Care Provider] -
[2022-09-10] MEDS ORDERED: OPTIRAY 320 100ml IV ONE (19:30)
--- NOTE | 2022-09-10 20:03 | CT Scan Report ---
Exam(s): CT ABDOMEN + PELVIS With Contrast IV Amt: 92ml EXAM: CT Abdomen and Pelvis With Intravenous Contrast CLINICAL HISTORY: Reason for exam: Diarrhea, abd pain. TECHNIQUE: Axial computed tomography images of the abdomen and pelvis with intravenous contrast. CTDI is 27.17 mGy and DLP is 1564.22 mGy-cm. Automated exposure control was utilized for the study. A dose lowering technique was utilized adhering to the principles of ALARA. CONTRAST: Patient received 92ml of IV contrast COMPARISON: 07/23/2020 FINDINGS: Lung bases: Unremarkable. No mass. No consolidation. ABDOMEN: Liver: Unremarkable. No mass. Gallbladder and bile ducts: Postoperative changes prior cholecystectomy. No ductal dilation. Pancreas: Unremarkable. No mass. No ductal dilation. Spleen: Unremarkable. No splenomegaly. Adrenals: Unremarkable. No mass. Kidneys and ureters: Unremarkable. No solid mass. No hydronephrosis. Stomach and bowel: Unremarkable. No obstruction. No mucosal thickening. PELVIS: Appendix: No findings to suggest acute appendicitis. Bladder: Unremarkable. No mass. Reproductive: Unremarkable as visualized. ABDOMEN and PELVIS: Intraperitoneal space: Unremarkable. No free air. No significant fluid collection. 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 . Soft tissues: Unremarkable. Vasculature: Unremarkable. No abdominal aortic aneurysm. Lymph nodes: Unremarkable. No enlarged lymph nodes. IMPRESSION: No acute findings in the abdomen or pelvis. Electronically signed by: Jono Kovacs MD 09/10/22 20:02 PM
[2022-09-10 21:21] LABS: Appearance Urine Clear (Clear); Bacteria Urine Automated Negative (Negative); Bilirubin Urine Negative (Negative); Blood Urine Negative (Negative); Color Urine Yellow; Epithelial Cell Urine Auto 20-30 /lpf (0-5); Glucose Urine UA Negative (Negative); Ketones Urine Negative (Negative); Leukocyte Esterase Urine Negative (Negative); Nitrite Urine Negative (Negative); RBC Urine Automated 0-4 /hpf (0-4); Specific Gravity Urine > 1.045 (1.000-1.030); Urobilinogen Urine Negative (Negative); pH Urine 7.5 (4.5-7.5)
--- NOTE | 2022-09-10 21:21 | History & Physical Report ---
Date of Service September 10, 2022 Assessment & Plan (1) GIB (gastrointestinal bleeding): Plan: Suspected lower GI bleed In the setting of multiple episodes of diarrhea BUN is negative, pt reporting mostly bright red blood, patient does have some epigastric pain upper is not ruled out but less likely. We will continue PPI IV twice daily Rectal exam in the ER without hemorrhoids or fissure Hemoglobin trended every 4 hours Crossmatched, 2 units of blood on hold. Transfuse for hemoglobin less than 7 or 1 unit for acute symptoms. Patient consented at time of admission MCV 77, iron studies pending in addition to B12/folate If hemoglobin is stable treat diarrhea symptomatically can follow-up with GI as outpatient. If continuing/dropping H&H --> consult inpt No blood thinners COPD with chronic respiratory failure on oxygen Continue oxygen goal SPO2 greater than 89% Continue home inhalers for equivalent L K[place] [facility] [place], spacer removed. Continue doxycycline, fluconazole, oral vancomycin. These were started - [id number] qd x30, vanco q250mg 09/09 x10 days, doxy 100 bid 14d 09/09/22 - ?C diff given severe diarrhea. If positive and worsening on vanco --> start dificid - Wound care ordred DM 2 Goal BSG [id number] Hold home antiglycemic's Sliding scale Chronic opioid use Continue buprenorphine twice daily GERD Continue Protonix, increased to 40 twice daily. Lower suspicion for upper GI bleed. Recent acute cholecystitis with biliary calculus S/p cholecystectomy with fungemia discharged 07/28/2020. Continued on fluconazole No signs of biliary pathology or postoperative hematoma/abscess on CT DVT prophylaxis: Pharmacal prophylaxis contraindicated in the setting of acute bleed. SCDs Disposition: Medical telemetry Diet: N.p.o. for bleeding, IV FM CODE STATUS: FUll (2) COPD (chronic obstructive pulmonary disease): (3) COPD exacerbation: (4) DVT prophylaxis: (5) Chronic respiratory failure with hypoxia, on home O2 therapy: History of Present Illness Primary Care Provider: Doc Morejon MD Zan is a 67-year-old male with a past medical history of hepatitis C, COPD, hypertension, chronic respiratory failure with hypoxia on home oxygen, DM 2, bullous pemphigoid who was recently had severe watery diarrhea with margaret blood. BUN is normal, hemoglobin 9.6 with last 11.2. He is recommended for admission for lower GI bleed with a negative CTA/P with contrast Pt going 'quite often. 7-10 time sper day x2-3 days' Lot of red blood. 1-2 episodes of darker BM. +epigastric tenderness. last scope 'been a while, few years. Was done at [facility] No lightheadeness, no dizziness No chest pain or chest pressure. No syncope or presyncope No vomiting, slight nause Reports he just had surgery this past week at [facility]. Had a complicated course where he had a left knee replacement which got infected, was explanted and had a spacer placed, and then was replaced this past week. He is currently on doxycycline, fluconazole, and oral vancomycin which were started 09/09.[id number] qd x30, vanco q250mg 09/09 x10 days, doxy 100 bid 14d 09/09/22 Medical History: Reviewed Medications: Reviewed Surgical History: Reviewed Family history: Reviewed Allergies: Reviewed Social History: Denies tobacco etoh Code Status: Full Allergies Allergy/AdvReac Type Severity Reaction Status Date / Time acesulfame Allergy Severe SEVERE Verified 02/24/22 14:24 RASH & VOMIT naloxone Allergy Severe SEVERE Verified 02/24/22 14:24 RASH & VOMIT Sulfa (Sulfonamide Allergy Intermediate RASH / Verified 02/24/22 14:24 Antibiotics) ITCHINESS quetiapine [From Seroquel] AdvReac Intermediate Nightmare Unverified 02/24/22 14:24 amitriptyline AdvReac Unknown Unknown Unverified 02/24/22 14:24 morphine AdvReac Unknown Unknown Unverified 02/24/22 14:24 Home Medications Medication Instructions Recorded Confirmed Type artificial 1 spray PO 5XD PRN Dry Mouth 10/31/18 07/25/20 History saliva(carboxymethylcellulose-electrolytes) spray pump gabapentin 300 mg capsule 900 mg PO BID 10/31/18 07/25/20 History prazosin 2 mg capsule 4 mg PO HS 10/31/18 07/25/20 History propranolol 80 mg tablet 80 mg PO BID 10/31/18 07/25/20 History sennosides 8.6 mg tablet 8.6 mg PO BID PRN Constipation 10/31/18 07/25/20 History torsemide 20 mg tablet 40 mg PO QAM 10/31/18 07/25/20 History triamcinolone acetonide 0.5 % 1 applic topical BID 10/31/18 07/25/20 History topical cream alogliptin 12.5 mg tablet 12.5 mg PO DAILY 08/20/19 07/25/20 History sertraline 100 mg tablet 150 mg PO DAILY 08/20/19 07/25/20 History trazodone 50 mg tablet 100 mg PO HS PRN sleep 08/20/19 07/25/20 History atorvastatin 20 mg tablet 20 mg PO HS 07/23/20 07/25/20 History finasteride 5 mg tablet 5 mg PO DAILY 07/23/20 07/25/20 History losartan 100 mg tablet 100 mg PO DAILY 07/23/20 07/25/20 History niacin 500 mg capsule,extended 500 mg PO DAILY 07/23/20 07/25/20 History release pantoprazole 20 mg tablet,delayed 20 mg PO BID 07/23/20 07/25/20 History release azathioprine 50 mg tablet (Imuran) 50 mg PO QID #30 tabs 07/28/20 Rx buprenorphine HCl 8 mg sublingual 8 mg sublingual BID #10 tabs 07/28/20 Rx tablet fluconazole 100 mg tablet 400 mg PO QAM #13 tabs 07/28/20 Rx fluticasone furoate 100 1 puff inhalation QAM #1 ea 07/28/20 Rx mcg/actuation blister powder for inhalation (Arnuity Ellipta) umeclidinium 62.5 mcg/actuation 1 puff inhalation QAM #1 ea 07/28/20 Rx blister powder for inhalation (Incruse Ellipta) Past Med/Surg History Medical History Acute cholecystitis due to biliary calculus chronic cholecystitis, Acute renal failure Anemia Arthralgia of multiple sites Bullous pemphigoid Chronic pain Chronic pain COPD (chronic obstructive pulmonary disease) DM type 2 (diabetes mellitus, type 2) Hepatitis C antibody positive in blood History of intravenous drug abuse Hypertension Hypoxia Memory loss MRSA infection PATIENT STATES WAS 1-2 YEARS AGO Neuropathy Obesity Rheumatoid arthritis Surgical History History of incision and drainage Family History Other Hypertension Social History Smoking Status: Never smoker Tobacco Type: Cigarettes packs per day: 2; Do You Dip or Chew Tobacco: No; Hx Alcohol Use: No Hx Substance Use: No Preferred Language: [place] Communication 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 NAD. Cooperative. HEENT: Atraumatic, normocephalic. Vision/hearing intact Pulm: CTAB A&P. -wheezes, -rales, -rhonchi. Symmetrical chest rise. No increased work of breathing. No respiratory distress. Cardiac: RRR, -mrg. Radial pulses intact and symmetrical. Abdominal: Mild epigastric tenderness, mild diffuse lower abdominal tenderness without rebound/guard BS present. Extremities: Left anterior leg wound with dressing overlying, no warmth/erythema/tenderness Results & Data Results & Data Vital Signs (Past 12 Hours) Vital Signs Temp Pulse Pulse Resp BP BP Pulse Ox 09/10/22 21:00 109 H 09/10/22 20:00 84 16 134/87 94 09/10/22 16:23 36.8 C 99 H 16 134/89 98 O2 Del Method 09/10/22 21:00 09/10/22 20:00 Room Air 09/10/22 16:23 Room Air PG Care Time/CCT Total # of Minutes Spent Total Time Spent with Patient: Total time spent is greater than 50% in coordination of care (as documented) at patient's floor/unit and/or counseling patient: Coding Level of Care Code 89151 INT INP/OBS CARE 3/75MIN Diagnoses GIB (gastrointestinal bleeding) K92.2 COPD (chronic obstructive pulmonary disease) J44.9 COPD type: unspecified COPD COPD exacerbation J44.1 DVT prophylaxis Z29.9 Chronic respiratory failure with hypoxia, on home O2 therapy J96.11; Z99.81 (2) COPD (chronic obstructive pulmonary disease) COPD type: unspecified COPD Qualified Code(s): J44.9 - Chronic obstructive pulmonary disease, unspecified
[2022-09-10 21:23] LABS: Protein Urine Trace (Negative)
[2022-09-10] MEDS ORDERED: GLUCAGON FOR INJ 1 MG VIAL SQ PRN (21:53)
[2022-09-10] MEDS ORDERED: CARBOHYDRATES FOR HYPOGLYCEMIA PO PRN (21:53)
[2022-09-10] MEDS ORDERED: SODIUM CHLORIDE 0.9% 250 ML IV PRN (21:53)
[2022-09-10] MEDS ORDERED: DEXTROSE 50% 50 ML SYRINGE IV PRN (21:53)
[2022-09-10] MEDS ORDERED: GLUCOSE 40% GEL 15 GM TUBE PO PRN (21:53)
[2022-09-10] MEDS ORDERED: GLUCOSE 10 TAB/TUBE PO PRN (21:53)
[2022-09-10 22:37] LABS: Adenovirus F 40/41 PCR Not Detected (NotDetected); Astrovirus PCR Not Detected (NotDetected); Campylobacter PCR Not Detected (NotDetected); Cryptosporidium PCR Not Detected (NotDetected); Cyclospora cayetanensis PCR Not Detected (NotDetected); Entamoeba histolytica PCR Not Detected (NotDetected); Enteroaggregative E.coli(EAEC) Not Detected (NotDetected); Enteropathogenic E.coli (EPEC) Not Detected (NotDetected); Enterotoxigenic E.coli (ETEC) Not Detected (NotDetected); Giardia lamblia PCR Not Detected (NotDetected); Norovirus GI/GII PCR Not Detected (NotDetected); Plesiomonas shigelloides PCR Not Detected (NotDetected); Rotavirus A PCR Not Detected (NotDetected); Salmonella PCR Not Detected (NotDetected); Sapovirus PCR Not Detected (NotDetected); Shiga-like Toxin E.coli (STEC) Not Detected (NotDetected); Shigella/Enteroinvasive E.coli Not Detected (NotDetected); Vibrio cholerae PCR Not Detected (NotDetected); Vibrio species PCR Not Detected (NotDetected); Yersinia enterocolitica PCR Not Detected (NotDetected)
[2022-09-10] MEDS ORDERED: HYDROmorphone INJ 0.5 MG/0.5 ML SYR IV PRN (23:06)
[2022-09-11] MEDS: PLASMA-LYTE A 1,000 ML IV SCH ×4 (00:20→23:55)
[2022-09-11] MEDS: traZODone HCL 100 MG TAB PO PRN ×2 (00:20→20:18)
[2022-09-11 00:28] LABS: Hematocrit (blood only) 27.6 % (42.0-52.0); Hemoglobin 8.6 g/dl (14.0-18.0)
[2022-09-11] MEDS: INSULIN ASPART PER UNIT CHARGE SC SCH ×4 (05:15→20:21)
[2022-09-11 05:21] LABS: Basophils # (auto) 0.08 K/uL (0-0.2); Basophils % (auto) 0.9 %; Eosinophils # (auto) 0.63 K/uL (0-0.50); Eosinophils % (auto) 7.1 %; Hemoglobin 8.9 g/dl (14.0-18.0); Immature Granulocytes % (auto) 1.1 %; Lymphocytes # (auto) 1.69 K/uL (1.2-3.4); Lymphocytes % (auto) 19.1 %; Mean Corpuscular Hemoglobin 23.7 pg (25.0-34.0); Mean Corpuscular Hgb Conc 30.7 g/dL (32.0-36.0); Mean Corpuscular Volume 77.1 fL (80.0-100.0); Mean Platelet Volume 8.7 fL (9.4-12.4); Monocytes % (auto) 10.2 %; Neutrophils # (auto) 5.45 K/uL (1.40-6.50); Neutrophils % (auto) 61.6 %; Platelet Count 442 K/uL (130-400); RDW Coefficient of Variation 15.4 % (11.5-14.5); RDW Standard Deviation 42.7 fL (36.4-46.3); Red Blood Count 3.76 M/uL (4.70-6.10); White Blood Count 8.85 K/ul (4.8-10.8)
[2022-09-11 05:32] LABS: BUN Creatinine Ratio 10.5 (10-20); Calcium 9.2 mg/dl (8.6-10.3); Creatinine Clr Calc Pharmacy 106.4 ml/min; Est GFR (African American) 104.7 ml/min; Est GFR (Non-African American) 90.4 ml/min; Potassium 3.9 mmol/L (3.5-5.1)
[2022-09-11] MEDS ORDERED: ACETAMINOPHEN 500 MG TAB PO STA (05:46)
[2022-09-11] MEDS ORDERED: buprenorphine HCL 8 MG SUBL SL SCH (09:00)
[2022-09-11 09:11] LABS: Hemoglobin 8.7 g/dl (14.0-18.0)
--- NOTE | 2022-09-11 11:14 | Gastrointestinal Consultation ---
Date of Consultation September 11, 2022 Assessment & Plan (1) Acute lower GI bleeding: He story suggests and acute infectious enteritis. Curious that no bowel thickening seen on CT. It doesn't sound like diarrhea with hemorrhoidal bleeding. His H/H are really stable since 2020 he has always had hemoglobin in the 9's. Acute problems like this usually resolve on their own or with antibiotics. Since he had colonoscopy last year I think we should observe for now. I will start him on liquids. History of Present Illness Reason for Consultation: gi bleeding Attending Physician: Jimmy Martinez History of Present Illness 67 year old man with recent left knee replacement that got infected. He was just released two weeks ago. Received antibiotics and then was in rehab and continued with antibiotics. He has been home and three days ago started having bloody diarrhea. He has pain prior to the diarrhea. He denies fever or chills. He has had negative c.diff testing here. He does report having had a colonoscopy last year he thinks in [place]. He denies nausea or vomiting. Allergies Allergy/AdvReac Type Severity Reaction Status Date / Time acesulfame Allergy Severe SEVERE Verified 09/10/22 23:06 RASH & VOMIT naloxone Allergy Severe SEVERE Verified 09/10/22 23:06 RASH & VOMIT Sulfa (Sulfonamide Allergy Intermediate RASH / Verified 09/10/22 23:06 Antibiotics) ITCHINESS quetiapine [From Seroquel] AdvReac Intermediate Nightmare Unverified 09/10/22 23:06 amitriptyline AdvReac Unknown Unknown Unverified 09/10/22 23:06 morphine AdvReac Unknown Unknown Unverified 09/10/22 23:06 Home Medications Medication Instructions Recorded Confirmed Type artificial 1 spray PO 5XD PRN Dry Mouth 10/31/18 07/25/20 History saliva(carboxymethylcellulose-electrolytes) spray pump gabapentin 300 mg capsule 900 mg PO BID 10/31/18 07/25/20 History prazosin 2 mg capsule 4 mg PO HS 10/31/18 07/25/20 History propranolol 80 mg tablet 80 mg PO BID 10/31/18 07/25/20 History sennosides 8.6 mg tablet 8.6 mg PO BID PRN Constipation 10/31/18 07/25/20 History torsemide 20 mg tablet 40 mg PO QAM 10/31/18 07/25/20 History triamcinolone acetonide 0.5 % 1 applic topical BID 10/31/18 07/25/20 History topical cream alogliptin 12.5 mg tablet 12.5 mg PO DAILY 08/20/19 07/25/20 History sertraline 100 mg tablet 150 mg PO DAILY 08/20/19 07/25/20 History trazodone 50 mg tablet 100 mg PO HS PRN sleep 08/20/19 07/25/20 History atorvastatin 20 mg tablet 20 mg PO HS 07/23/20 07/25/20 History finasteride 5 mg tablet 5 mg PO DAILY 07/23/20 07/25/20 History losartan 100 mg tablet 100 mg PO DAILY 07/23/20 07/25/20 History niacin 500 mg capsule,extended 500 mg PO DAILY 07/23/20 07/25/20 History release pantoprazole 20 mg tablet,delayed 20 mg PO BID 07/23/20 07/25/20 History release azathioprine 50 mg tablet (Imuran) 50 mg PO QID #30 tabs 07/28/20 Rx buprenorphine HCl 8 mg sublingual 8 mg sublingual BID #10 tabs 07/28/20 Rx tablet fluconazole 100 mg tablet 400 mg PO QAM #13 tabs 07/28/20 Rx fluticasone furoate 100 1 puff inhalation QAM #1 ea 07/28/20 Rx mcg/actuation blister powder for inhalation (Arnuity Ellipta) umeclidinium 62.5 mcg/actuation 1 puff inhalation QAM #1 ea 07/28/20 Rx blister powder for inhalation (Incruse Ellipta) doxycycline hyclate 100 mg tablet 100 mg PO Q12 09/10/22 09/10/22 History fluconazole 100 mg tablet 400 mg PO DAILY 09/10/22 09/10/22 History vancomycin 250 mg capsule 250 mg PO Q6 09/10/22 09/10/22 History Patient History Medical History Acute cholecystitis due to biliary calculus chronic cholecystitis, Acute renal failure Anemia Arthralgia of multiple sites Bullous pemphigoid Chronic pain Chronic pain COPD (chronic obstructive pulmonary disease) DM type 2 (diabetes mellitus, type 2) Hepatitis C antibody positive in blood History of intravenous drug abuse Hypertension Hypoxia Memory loss MRSA infection PATIENT STATES WAS 1-2 YEARS AGO Neuropathy Obesity Rheumatoid arthritis Surgical History History of incision and drainage Family History Other Hypertension Social History Smoking Status: Former smoker Tobacco Type: Cigarettes packs per day: 2; Cigarettes Per Day: 24; Smoking End Date: 1974; Second Hand Exposure: No; Do You Dip or Chew Tobacco: No; Tobacco Cessation Education Requested by Patient: No Hx Alcohol Use: No Hx Substance Use: No Preferred Language: Hebrew Communication Ability: Effective English Professor Required: No Beliefs That Will Affect Care: None marital status: Current Living Situation: Spouse Current Living Situation Comment: with [place] Other Information That Helps Us Care for You: No Feels Safe at Home: Yes Safety Concerns: Feels Safe At This Time Assistive Devices: Oxygen - at Night Review of Systems Review of Systems: All systems reviewed & are unremarkable except as noted in HPI & below Physical Exam Constitutional: WD/WN, vitals as above Eyes: PERRL, conjunctivae normal, anicteric sclerae Neck: trachea midline, no thyromegaly Respiratory: normal respiratory effort, lungs clear to auscultation Cardiovascular: RRR, no murmur, no edema Gastrointestinal (Abdomen): normal bowel sounds, soft, nontender, no hepatosplenomegaly Musculoskeletal: Extremities: extremities normal to inspection Results & Data Vital Signs (Past 12 Hours) Vital Signs Temp Pulse Pulse Pulse Resp BP BP 09/11/22 08:00 96 H 09/11/22 07:40 36.7 C 103 H 20 138/84 09/11/22 03:43 36.7 C 91 H 20 144/83 H 09/11/22 01:13 09/11/22 01:13 36.5 C 91 H 20 132/79 09/10/22 23:40 93 H Pulse Ox O2 Del Method 09/11/22 08:00 09/11/22 07:40 94 Room Air 09/11/22 03:43 95 Room Air 09/11/22 01:13 Room Air 09/11/22 01:13 96 Room Air 09/10/22 23:40 Laboratory Results 09/11/22 09/11/22 09/11/22 Range/Units 08:46 05:12 04:15 WBC (4.8-10.8) K/ul RBC (4.70-6.10) M/uL Hgb 8.7 L (14.0-18.0) g/dl Hct 28.0 L (42.0-52.0) % MCV (80.0-100.0) fL MCH (25.0-34.0) pg MCHC (32.0-36.0) g/dL RDW Std Deviation (36.4-46.3) fL RDW Coeff of Fely (11.5-14.5) % Plt Count (130-400) K/uL MPV (9.4-12.4) fL Immature Gran % (Auto) % Neut % (Auto) % Lymph % (Auto) % [place] % (Auto) % Eos % (Auto) % Baso % (Auto) % Neut # (Auto) (1.40-6.50) K/uL Lymph # (Auto) (1.2-3.4) K/uL [place] # (Auto) (0.11-0.59) K/uL Eos # (Auto) (0-0.50) K/uL Baso # (Auto) (0-0.2) K/uL Immature Gran # (Auto) (0.01-0.20) K/uL PT (9.0-12.0) Seconds INR (0.9-1.1) APTT (21.0-31.0) Seconds PTT Ratio Sodium (136-145) mmol/L Potassium (3.5-5.1) mmol/L Chloride (98-107) mmol/L Carbon Dioxide (21-32) mmol/L Anion Gap (3-11) BUN (6-23) mg/dl Creatinine (0.6-1.4) mg/dl Est Cr Clr Drug Dosing Est GFR ( Amer) ml/min Est GFR (Non-Af Amer) ml/min BUN/Creatinine Ratio (10-20) Glucose (70-99(Fasting)) mg/dl POC Glucose 110 H (70-99) mg/dl Calcium (8.6-10.3) mg/dl Total Bilirubin (0.2-1.0) mg/dl AST (13-39) U/L ALT (7-52) U/L Alkaline Phosphatase (34-104) U/L Total Protein (6.0-8.3) gm/dl Albumin (3.4-5.0) gm/dl Globulin (2.5-4.0) gm/dl Albumin/Globulin Ratio (0.9-2) Lipase (11-82) U/L Urine Color Urine Appearance (Clear) Urine pH (4.5-7.5) Ur Specific [place] (1.000-1.030) Urine Protein (Negative) Urine Glucose (UA) (Negative) Urine Ketones (Negative) Urine Blood (Negative) Urine Nitrite (Negative) Urine Bilirubin (Negative) Urine Urobilinogen (Negative) Ur Leukocyte Esterase (Negative) Urine WBC (Auto) (0-5) /hpf Urine RBC (Auto) (0-4) /hpf U Hyaline Cast (Auto) (0-5) /lpf U Epithel Cells (Auto) (0-5) /lpf Urine Bacteria (Auto) (Negative) Stl C. cayetanensis PCR (NotDetected) Stool Rotavirus A PCR (NotDetected) Stl Adenov F 40/41 PCR (NotDetected) Stool Astrovirus (PCR) (NotDetected) Stool Campylobacter PCR (NotDetected) Stl C. diff Tox B Gene (Neg) Stool Cryptosporidium PCR (NotDetected) Stl E.coli Shiga Tox PCR (NotDetected) Stl Enterotoxigenic E PCR (NotDetected) Stool EPEC (PCR) (NotDetected) Stool EAEC (PCR) (NotDetected) Stl E. histolytica PCR (NotDetected) Stool Giardia Lamblia PCR (NotDetected) Stool Salmonella PCR (NotDetected) Stool Sapovirus (PCR) (NotDetected) Stl P. shigelloides PCR (NotDetected) Stl Shigella/EIEC PCR (NotDetected) St Y.enterocolitica PCR (NotDetected) Stool Vibrio (PCR) (NotDetected) Stl Vibrio cholerae PCR (NotDetected) Stl Norovirus GI/GII PCR (NotDetected) Blood Type Blood Type Recheck A Positive Antibody Screen 09/11/22 09/11/22 09/11/22 Range/Units 04:15 04:15 00:10 WBC 8.85 (4.8-10.8) K/ul RBC 3.76 L (4.70-6.10) M/uL Hgb 8.9 L 8.6 L (14.0-18.0) g/dl Hct 29.0 L 27.6 L (42.0-52.0) % MCV 77.1 L (80.0-100.0) fL MCH 23.7 L (25.0-34.0) pg MCHC 30.7 L (32.0-36.0) g/dL RDW Std Deviation 42.7 (36.4-46.3) fL RDW Coeff of Fely 15.4 H (11.5-14.5) % Plt Count 442 H (130-400) K/uL MPV 8.7 L (9.4-12.4) fL Immature Gran % (Auto) 1.1 % Neut % (Auto) 61.6 % Lymph % (Auto) 19.1 % [place] % (Auto) 10.2 % Eos % (Auto) 7.1 % Baso % (Auto) 0.9 % Neut # (Auto) 5.45 (1.40-6.50) K/uL Lymph # (Auto) 1.69 (1.2-3.4) K/uL [place] # (Auto) 0.90 H (0.11-0.59) K/uL Eos # (Auto) 0.63 H (0-0.50) K/uL Baso # (Auto) 0.08 (0-0.2) K/uL Immature Gran # (Auto) 0.10 (0.01-0.20) K/uL PT (9.0-12.0) Seconds INR (0.9-1.1) APTT (21.0-31.0) Seconds PTT Ratio Sodium 137 (136-145) mmol/L Potassium 3.9 (3.5-5.1) mmol/L Chloride 103 (98-107) mmol/L Carbon Dioxide 27 (21-32) mmol/L Anion Gap 7 (3-11) BUN 9 (6-23) mg/dl Creatinine 0.86 (0.6-1.4) mg/dl Est Cr Clr Drug Dosing 106.4 Est GFR ( Amer) 104.7 ml/min Est GFR (Non-Af Amer) 90.4 ml/min BUN/Creatinine Ratio 10.5 (10-20) Glucose 99 (70-99(Fasting)) mg/dl POC Glucose (70-99) mg/dl Calcium 9.2 (8.6-10.3) mg/dl Total Bilirubin (0.2-1.0) mg/dl AST (13-39) U/L ALT (7-52) U/L Alkaline Phosphatase (34-104) U/L Total Protein (6.0-8.3) gm/dl Albumin (3.4-5.0) gm/dl Globulin (2.5-4.0) gm/dl Albumin/Globulin Ratio (0.9-2) Lipase (11-82) U/L Urine Color Urine Appearance (Clear) Urine pH (4.5-7.5) Ur Specific [place] (1.000-1.030) Urine Protein (Negative) Urine Glucose (UA) (Negative) Urine Ketones (Negative) Urine Blood (Negative) Urine Nitrite (Negative) Urine Bilirubin (Negative) Urine Urobilinogen (Negative) Ur Leukocyte Esterase (Negative) Urine WBC (Auto) (0-5) /hpf Urine RBC (Auto) (0-4) /hpf U Hyaline Cast (Auto) (0-5) /lpf U Epithel Cells (Auto) (0-5) /lpf Urine Bacteria (Auto) (Negative) Stl C. cayetanensis PCR (NotDetected) Stool Rotavirus A PCR (NotDetected) Stl Adenov F 40/41 PCR (NotDetected) Stool Astrovirus (PCR) (NotDetected) Stool Campylobacter PCR (NotDetected) Stl C. diff Tox B Gene (Neg) Stool Cryptosporidium PCR (NotDetected) Stl E.coli Shiga Tox PCR (NotDetected) Stl Enterotoxigenic E PCR (NotDetected) Stool EPEC (PCR) (NotDetected) Stool EAEC (PCR) (NotDetected) Stl E. histolytica PCR (NotDetected) Stool Giardia Lamblia PCR (NotDetected) Stool Salmonella PCR (NotDetected) Stool Sapovirus (PCR) (NotDetected) Stl P. shigelloides PCR (NotDetected) Stl Shigella/EIEC PCR (NotDetected) St Y.enterocolitica PCR (NotDetected) Stool Vibrio (PCR) (NotDetected) Stl Vibrio cholerae PCR (NotDetected) Stl Norovirus GI/GII PCR (NotDetected) Blood Type Blood Type Recheck Antibody Screen 09/10/22 09/10/22 09/10/22 Range/Units 22:39 20:52 20:52 WBC (4.8-10.8) K/ul RBC (4.70-6.10) M/uL Hgb (14.0-18.0) g/dl Hct (42.0-52.0) % MCV (80.0-100.0) fL MCH (25.0-34.0) pg MCHC (32.0-36.0) g/dL RDW Std Deviation (36.4-46.3) fL RDW Coeff of Fely (11.5-14.5) % Plt Count (130-400) K/uL MPV (9.4-12.4) fL Immature Gran % (Auto) % Neut % (Auto) % Lymph % (Auto) % [place] % (Auto) % Eos % (Auto) % Baso % (Auto) % Neut # (Auto) (1.40-6.50) K/uL Lymph # (Auto) (1.2-3.4) K/uL [place] # (Auto) (0.11-0.59) K/uL Eos # (Auto) (0-0.50) K/uL Baso # (Auto) (0-0.2) K/uL Immature Gran # (Auto) (0.01-0.20) K/uL PT (9.0-12.0) Seconds INR (0.9-1.1) APTT (21.0-31.0) Seconds PTT Ratio Sodium (136-145) mmol/L Potassium (3.5-5.1) mmol/L Chloride (98-107) mmol/L Carbon Dioxide (21-32) mmol/L Anion Gap (3-11) BUN (6-23) mg/dl Creatinine (0.6-1.4) mg/dl Est Cr Clr Drug Dosing Est GFR ( Amer) ml/min Est GFR (Non-Af Amer) ml/min BUN/Creatinine Ratio (10-20) Glucose (70-99(Fasting)) mg/dl POC Glucose 112 H (70-99) mg/dl Calcium (8.6-10.3) mg/dl Total Bilirubin (0.2-1.0) mg/dl AST (13-39) U/L ALT (7-52) U/L Alkaline Phosphatase (34-104) U/L Total Protein (6.0-8.3) gm/dl Albumin (3.4-5.0) gm/dl Globulin (2.5-4.0) gm/dl Albumin/Globulin Ratio (0.9-2) Lipase (11-82) U/L Urine Color Urine Appearance (Clear) Urine pH (4.5-7.5) Ur Specific [place] (1.000-1.030) Urine Protein (Negative) Urine Glucose (UA) (Negative) Urine Ketones (Negative) Urine Blood (Negative) Urine Nitrite (Negative) Urine Bilirubin (Negative) Urine Urobilinogen (Negative) Ur Leukocyte Esterase (Negative) Urine WBC (Auto) (0-5) /hpf Urine RBC (Auto) (0-4) /hpf U Hyaline Cast (Auto) (0-5) /lpf U Epithel Cells (Auto) (0-5) /lpf Urine Bacteria (Auto) (Negative) Stl C. cayetanensis PCR Not Detected (NotDetected) Stool Rotavirus A PCR Not Detected (NotDetected) Stl Adenov F 40/41 PCR Not Detected (NotDetected) Stool Astrovirus (PCR) Not Detected (NotDetected) Stool Campylobacter PCR Not Detected (NotDetected) Stl C. diff Tox B Gene Negative Cdiff Gene (Neg) Stool Cryptosporidium PCR Not Detected (NotDetected) Stl E.coli Shiga Tox PCR Not Detected (NotDetected) Stl Enterotoxigenic E PCR Not Detected (NotDetected) Stool EPEC (PCR) Not Detected (NotDetected) Stool EAEC (PCR) Not Detected (NotDetected) Stl E. histolytica PCR Not Detected (NotDetected) Stool Giardia Lamblia PCR Not Detected (NotDetected) Stool Salmonella PCR Not Detected (NotDetected) Stool Sapovirus (PCR) Not Detected (NotDetected) Stl P. shigelloides PCR Not Detected (NotDetected) Stl Shigella/EIEC PCR Not Detected (NotDetected) St Y.enterocolitica PCR Not Detected (NotDetected) Stool Vibrio (PCR) Not Detected (NotDetected) Stl Vibrio cholerae PCR Not Detected (NotDetected) Stl Norovirus GI/GII PCR Not Detected (NotDetected) Blood Type Blood Type Recheck Antibody Screen 09/10/22 09/10/22 09/10/22 Range/Units 20:52 18:06 18:00 WBC (4.8-10.8) K/ul RBC (4.70-6.10) M/uL Hgb (14.0-18.0) g/dl Hct (42.0-52.0) % MCV (80.0-100.0) fL MCH (25.0-34.0) pg MCHC (32.0-36.0) g/dL RDW Std Deviation (36.4-46.3) fL RDW Coeff of Fely (11.5-14.5) % Plt Count (130-400) K/uL MPV (9.4-12.4) fL Immature Gran % (Auto) % Neut % (Auto) % Lymph % (Auto) % [place] % (Auto) % Eos % (Auto) % Baso % (Auto) % Neut # (Auto) (1.40-6.50) K/uL Lymph # (Auto) (1.2-3.4) K/uL [place] # (Auto) (0.11-0.59) K/uL Eos # (Auto) (0-0.50) K/uL Baso # (Auto) (0-0.2) K/uL Immature Gran # (Auto) (0.01-0.20) K/uL PT (9.0-12.0) Seconds INR (0.9-1.1) APTT (21.0-31.0) Seconds PTT Ratio Sodium 135 L (136-145) mmol/L Potassium 4.4 (3.5-5.1) mmol/L Chloride 101 (98-107) mmol/L Carbon Dioxide 27 (21-32) mmol/L Anion Gap 7 (3-11) BUN 11 (6-23) mg/dl Creatinine 0.88 (0.6-1.4) mg/dl Est Cr Clr Drug Dosing Not Reportable Est GFR ( Amer) 103.7 ml/min Est GFR (Non-Af Amer) 89.5 ml/min BUN/Creatinine Ratio 12.5 (10-20) Glucose 105 H (70-99(Fasting)) mg/dl POC Glucose (70-99) mg/dl Calcium 9.4 (8.6-10.3) mg/dl Total Bilirubin 0.5 (0.2-1.0) mg/dl AST 20 (13-39) U/L ALT 17 (7-52) U/L Alkaline Phosphatase 276 H (34-104) U/L Total Protein 8.6 H (6.0-8.3) gm/dl Albumin 3.4 (3.4-5.0) gm/dl Globulin 5.2 H (2.5-4.0) gm/dl Albumin/Globulin Ratio 0.7 L (0.9-2) Lipase 6 L (11-82) U/L Urine Color Yellow Urine Appearance Clear (Clear) Urine pH 7.5 (4.5-7.5) Ur Specific [place] > 1.045 H (1.000-1.030) Urine Protein Trace H (Negative) Urine Glucose (UA) Negative (Negative) Urine Ketones Negative (Negative) Urine Blood Negative (Negative) Urine Nitrite Negative (Negative) Urine Bilirubin Negative (Negative) Urine Urobilinogen Negative (Negative) Ur Leukocyte Esterase Negative (Negative) Urine WBC (Auto) 5-10 H (0-5) /hpf Urine RBC (Auto) 0-4 (0-4) /hpf U Hyaline Cast (Auto) 1-5 (0-5) /lpf U Epithel Cells (Auto) 20-30 H (0-5) /lpf Urine Bacteria (Auto) Negative (Negative) Stl C. cayetanensis PCR (NotDetected) Stool Rotavirus A PCR (NotDetected) Stl Adenov F 40/41 PCR (NotDetected) Stool Astrovirus (PCR) (NotDetected) Stool Campylobacter PCR (NotDetected) Stl C. diff Tox B Gene (Neg) Stool Cryptosporidium PCR (NotDetected) Stl E.coli Shiga Tox PCR (NotDetected) Stl Enterotoxigenic E PCR (NotDetected) Stool EPEC (PCR) (NotDetected) Stool EAEC (PCR) (NotDetected) Stl E. histolytica PCR (NotDetected) Stool Giardia Lamblia PCR (NotDetected) Stool Salmonella PCR (NotDetected) Stool Sapovirus (PCR) (NotDetected) Stl P. shigelloides PCR (NotDetected) Stl Shigella/EIEC PCR (NotDetected) St Y.enterocolitica PCR (NotDetected) Stool Vibrio (PCR) (NotDetected) Stl Vibrio cholerae PCR (NotDetected) Stl Norovirus GI/GII PCR (NotDetected) Blood Type A Positive Blood Type Recheck Antibody Screen NEGATIVE 09/10/22 09/10/22 Range/Units 18:00 18:00 WBC 9.15 (4.8-10.8) K/ul RBC 4.09 L (4.70-6.10) M/uL Hgb 9.6 L (14.0-18.0) g/dl Hct 31.8 L (42.0-52.0) % MCV 77.8 L (80.0-100.0) fL MCH 23.5 L (25.0-34.0) pg MCHC 30.2 L (32.0-36.0) g/dL RDW Std Deviation 42.5 (36.4-46.3) fL RDW Coeff of Fely 15.2 H (11.5-14.5) % Plt Count 485 H (130-400) K/uL MPV 8.5 L (9.4-12.4) fL Immature Gran % (Auto) 2.5 % Neut % (Auto) 70.7 % Lymph % (Auto) 13.2 % [place] % (Auto) 8.9 % Eos % (Auto) 3.9 % Baso % (Auto) 0.8 % Neut # (Auto) 6.47 (1.40-6.50) K/uL Lymph # (Auto) 1.21 (1.2-3.4) K/uL [place] # (Auto) 0.81 H (0.11-0.59) K/uL Eos # (Auto) 0.36 (0-0.50) K/uL Baso # (Auto) 0.07 (0-0.2) K/uL Immature Gran # (Auto) 0.23 H (0.01-0.20) K/uL PT 11.2 (9.0-12.0) Seconds INR 1.0 (0.9-1.1) APTT 34.2 H (21.0-31.0) Seconds PTT Ratio 1.2 Sodium (136-145) mmol/L Potassium (3.5-5.1) mmol/L Chloride (98-107) mmol/L Carbon Dioxide (21-32) mmol/L Anion Gap (3-11) BUN (6-23) mg/dl Creatinine (0.6-1.4) mg/dl Est Cr Clr Drug Dosing Est GFR ( Amer) ml/min Est GFR (Non-Af Amer) ml/min BUN/Creatinine Ratio (10-20) Glucose (70-99(Fasting)) mg/dl POC Glucose (70-99) mg/dl Calcium (8.6-10.3) mg/dl Total Bilirubin (0.2-1.0) mg/dl AST (13-39) U/L ALT (7-52) U/L Alkaline Phosphatase (34-104) U/L Total Protein (6.0-8.3) gm/dl Albumin (3.4-5.0) gm/dl Globulin (2.5-4.0) gm/dl Albumin/Globulin Ratio (0.9-2) Lipase (11-82) U/L Urine Color Urine Appearance (Clear) Urine pH (4.5-7.5) Ur Specific [place] (1.000-1.030) Urine Protein (Negative) Urine Glucose (UA) (Negative) Urine Ketones (Negative) Urine Blood (Negative) Urine Nitrite (Negative) Urine Bilirubin (Negative) Urine Urobilinogen (Negative) Ur Leukocyte Esterase (Negative) Urine WBC (Auto) (0-5) /hpf Urine RBC (Auto) (0-4) /hpf U Hyaline Cast (Auto) (0-5) /lpf U Epithel Cells (Auto) (0-5) /lpf Urine Bacteria (Auto) (Negative) Stl C. cayetanensis PCR (NotDetected) Stool Rotavirus A PCR (NotDetected) Stl Adenov F 40/41 PCR (NotDetected) Stool Astrovirus (PCR) (NotDetected) Stool Campylobacter PCR (NotDetected) Stl C. diff Tox B Gene (Neg) Stool Cryptosporidium PCR (NotDetected) Stl E.coli Shiga Tox PCR (NotDetected) Stl Enterotoxigenic E PCR (NotDetected) Stool EPEC (PCR) (NotDetected) Stool EAEC (PCR) (NotDetected) Stl E. histolytica PCR (NotDetected) Stool Giardia Lamblia PCR (NotDetected) Stool Salmonella PCR (NotDetected) Stool Sapovirus (PCR) (NotDetected) Stl P. shigelloides PCR (NotDetected) Stl Shigella/EIEC PCR (NotDetected) St Y.enterocolitica PCR (NotDetected) Stool Vibrio (PCR) (NotDetected) Stl Vibrio cholerae PCR (NotDetected) Stl Norovirus GI/GII PCR (NotDetected) Blood Type Blood Type Recheck Antibody Screen Diagnostic Findings Abdomen/Pelvis CT 09/10/22 16:26 Exam(s): CT ABDOMEN + PELVIS With Contrast IV Amt: 92ml EXAM: CT Abdomen and Pelvis With Intravenous Contrast CLINICAL HISTORY: Reason for exam: Diarrhea, abd pain. TECHNIQUE: Axial computed tomography images of the abdomen and pelvis with intravenous contrast. CTDI is 27.17 mGy and DLP is 1564.22 mGy-cm. Automated exposure control was utilized for the study. A dose lowering technique was utilized adhering to the principles of ALARA. CONTRAST: Patient received 92ml of IV contrast COMPARISON: 07/23/2020 FINDINGS: Lung bases: Unremarkable. No mass. No consolidation. ABDOMEN: Liver: Unremarkable. No mass. Gallbladder and bile ducts: Postoperative changes prior cholecystectomy. No ductal dilation. Pancreas: Unremarkable. No mass. No ductal dilation. Spleen: Unremarkable. No splenomegaly. Adrenals: Unremarkable. No mass. Kidneys and ureters: Unremarkable. No solid mass. No hydronephrosis. Stomach and bowel: Unremarkable. No obstruction. No mucosal thickening. PELVIS: Appendix: No findings to suggest acute appendicitis. Bladder: Unremarkable. No mass. Reproductive: Unremarkable as visualized. ABDOMEN and PELVIS: Intraperitoneal space: Unremarkable. No free air. No significant fluid collection. 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 . Soft tissues: Unremarkable. Vasculature: Unremarkable. No abdominal aortic aneurysm. Lymph nodes: Unremarkable. No enlarged lymph nodes. IMPRESSION: No acute findings in the abdomen or pelvis. Electronically signed by: Jono Kovacs MD 09/10/22 20:02 PM
[2022-09-11] MEDS: FLUCONAZOLE 100 MG TAB PO SCH (11:49)
[2022-09-11] MEDS: FLUTICASONE FUROATE 100MCG 14 PUFFS/INHALER INH SCH (11:49)
[2022-09-11] MEDS: GABAPENTIN 300 MG CAP PO SCH ×2 (11:49→20:18)
[2022-09-11] MEDS: SERTRALINE HCL 50 MG TABLET PO SCH (11:50)
[2022-09-11] MEDS: LOSARTAN POTASSIUM 50 MG TAB PO SCH (11:50)
[2022-09-11] MEDS: TORSEMIDE 20 MG TAB PO SCH (11:50)
[2022-09-11] MEDS: PROPRANOLOL HCL 80 MG TAB PO SCH ×2 (11:50→21:59)
[2022-09-11] MEDS: UMECLIDINIUM BROMIDE 62.5MCG/BLISTER 7 PUFFS/INHALER INH SCH (11:51)
[2022-09-11 13:05] LABS: Hematocrit (blood only) 28.9 % (42.0-52.0)
[2022-09-11] MEDS: PANTOprazole 40 MG in SYRINGE 0 ML IV SCH ×2 (15:16→20:21)
[2022-09-11] MEDS ORDERED: Nursing to Pharmacy Communication SCH (16:00)
[2022-09-11] MEDS: ACETAMINOPHEN 325 MG TAB PO SCH ×2 (16:17→20:22)
[2022-09-11 16:31] LABS: Hematocrit (blood only) 29.9 % (42.0-52.0); Hemoglobin 9.3 g/dl (14.0-18.0)
[2022-09-11] MEDS: buprenorphine HCL 8 MG SUBL SL SCH (20:18)
[2022-09-11 20:23] LABS: Hematocrit (blood only) 29.1 % (42.0-52.0); Hemoglobin 9.1 g/dl (14.0-18.0)
[2022-09-11] MEDS: DOXYCYCLINE HYCLATE 100 MG CAP PO SCH (20:23)
[2022-09-11] MEDS ORDERED: PRAZOSIN HCL 1 MG CAP PO SCH (21:00)
--- NOTE | 2022-09-11 22:48 | Hospitalist Progress Note ---
Date of Service September 11, 2022 Assessment & Plan (1) GIB (gastrointestinal bleeding): Plan: Suspected lower GI bleed In the setting of multiple episodes of diarrhea BUN is negative, pt reporting mostly bright red blood, patient does have some epigastric pain upper is not ruled out but less likely. We will continue PPI IV twice daily Rectal exam in the ER without hemorrhoids or fissure Hemoglobin trended every 4 hours: hemoglobin has been stable. Crossmatched, 2 units of blood on hold. Transfuse for hemoglobin less than 7 or 1 unit for acute symptoms. Patient consented at time of admission MCV 77, iron studies pending in addition to B12/folate consulted Gastro: appreciate input, will place on a clear diet. No blood thinners COPD with chronic respiratory failure on oxygen Continue oxygen goal SPO2 greater than 89% Continue home inhalers for equivalent L Knee recent revision [place] [facility] [place] Alvarado hardware, spacer removed. on doxycycline, fluconazole, oral vancomycin. ordered placed. - [id number] qd x30, vanco q250mg 09/09 x10 days, doxy 100 bid 14d 09/09/22 - ?C diff given severe diarrhea. If positive and worsening on vanco --> start dificid - Wound care ordred DM 2 Goal BSG 850598 Hold home antiglycemic's Sliding scale Chronic opioid use Continue buprenorphine twice daily GERD Continue Protonix, increased to 40 twice daily. Lower suspicion for upper GI bleed. Recent acute cholecystitis with biliary calculus S/p cholecystectomy with fungemia discharged 07/28/2020. Continued on fluconazole No signs of biliary pathology or postoperative hematoma/abscess on CT DVT prophylaxis: Pharmacal prophylaxis contraindicated in the setting of acute bleed. SCDs Disposition: Medical telemetry Diet: N.p.o. for bleeding, IV FM CODE STATUS: FUll (2) COPD (chronic obstructive pulmonary disease): (3) COPD exacerbation: (4) DVT prophylaxis: (5) Chronic respiratory failure with hypoxia, on home O2 therapy: Admission and Anticipated Discharge Date Admission Date: September 10, 2022 Subjective 67 yo male reports having bilateral knee pain. Patient reports he continues to have diarrhea. Review of Systems Review of Systems: All systems reviewed & are unremarkable except as noted in HPI & below Physical Exam Physical Exam: General: A&Ox3. NAD. Cooperative. HEENT: Atraumatic, normocephalic. Vision/hearing intact Pulm: CTAB A&P. -wheezes, -rales, -rhonchi. Symmetrical chest rise. No increased work of breathing. No respiratory distress. Cardiac: RRR, -mrg. Radial pulses intact and symmetrical. Abdominal: Mild epigastric tenderness, mild diffuse lower abdominal tenderness without rebound/guard BS present. Extremities: Left anterior leg wound with dressing overlying, no warmth/erythema/tenderness Results & Data Results & Data Vital Signs (Past 12 Hours) Vital Signs Temp Pulse Pulse Resp BP Pulse Ox O2 Del Method 09/11/22 19:57 36.6 C 76 20 94/60 L 95 Room Air 09/11/22 16:00 76 09/11/22 15:21 36.7 C 78 20 100/69 95 Room Air 09/11/22 10:50 36.8 C 85 18 138/83 97 Room Air PG Care Time/CCT Total # of Minutes Spent Total Time Spent with Patient: Total time spent is greater than 50% in coordination of care (as documented) at patient's floor/unit and/or counseling patient: Coding Level of Care Code 78501 SUB INP/OBS CARE 3/50MIN Diagnoses GIB (gastrointestinal bleeding) K92.2 COPD (chronic obstructive pulmonary disease) J44.9 COPD type: unspecified COPD COPD exacerbation J44.1 DVT prophylaxis Z29.9 Chronic respiratory failure with hypoxia, on home O2 therapy J96.11; Z99.81 (2) COPD (chronic obstructive pulmonary disease) COPD type: unspecified COPD Qualified Code(s): J44.9 - Chronic obstructive pulmonary disease, unspecified
[2022-09-11] MEDS: VANCOMYCIN HCL 250 MG/5 ML SOLN PO SCH (23:55)
[2022-09-11] MEDS: RASPBERRY SYRUP 5 ML UDP PO SCH (23:56)
[2022-09-12] MEDS: VANCOMYCIN HCL 250 MG/5 ML SOLN PO SCH ×2 (05:59→12:29)
[2022-09-12] MEDS: RASPBERRY SYRUP 5 ML UDP PO SCH ×2 (05:59→12:29)
[2022-09-12 06:46] LABS: Basophils # (auto) 0.09 K/uL (0-0.2); Basophils % (auto) 0.8 %; Eosinophils # (auto) 0.74 K/uL (0-0.50); Eosinophils % (auto) 6.5 %; Hematocrit (blood only) 27.9 % (42.0-52.0); Hemoglobin 8.7 g/dl (14.0-18.0); Immature Granulocytes # (auto) 0.15 K/uL (0.01-0.20); Immature Granulocytes % (auto) 1.3 %; Lymphocytes # (auto) 2.05 K/uL (1.2-3.4); Lymphocytes % (auto) 18.1 %; Mean Corpuscular Hemoglobin 23.9 pg (25.0-34.0); Mean Corpuscular Hgb Conc 31.2 g/dL (32.0-36.0); Mean Corpuscular Volume 76.6 fL (80.0-100.0); Mean Platelet Volume 8.7 fL (9.4-12.4); Monocytes # (auto) 1.13 K/uL (0.11-0.59); Neutrophils # (auto) 7.18 K/uL (1.40-6.50); Neutrophils % (auto) 63.3 %; Platelet Count 392 K/uL (130-400); RDW Coefficient of Variation 15.4 % (11.5-14.5); RDW Standard Deviation 42.8 fL (36.4-46.3); Red Blood Count 3.64 M/uL (4.70-6.10); White Blood Count 11.34 K/ul (4.8-10.8)
[2022-09-12 07:36] LABS: BUN Creatinine Ratio 8.2 (10-20); Calcium 8.3 mg/dl (8.6-10.3); Creatinine Clr Calc Pharmacy 68.4 ml/min; Est GFR (African American) 63.5 ml/min; Est GFR (Non-African American) 54.8 ml/min; Potassium 3.6 mmol/L (3.5-5.1)
[2022-09-12 07:42] LABS: Estimated Average Glucose 137 mg/dl; Hemoglobin A1C 6.4 % (4.5-5.6)
[2022-09-12] MEDS: PLASMA-LYTE A 1,000 ML IV SCH (08:30)
[2022-09-12] MEDS: FLUTICASONE FUROATE 100MCG 14 PUFFS/INHALER INH SCH (09:21)
[2022-09-12] MEDS: ACETAMINOPHEN 325 MG TAB PO SCH ×2 (09:21→13:19)
[2022-09-12] MEDS: DOXYCYCLINE HYCLATE 100 MG CAP PO SCH (09:21)
[2022-09-12] MEDS: FLUCONAZOLE 100 MG TAB PO SCH (09:21)
[2022-09-12] MEDS: GABAPENTIN 300 MG CAP PO SCH (09:22)
[2022-09-12] MEDS: UMECLIDINIUM BROMIDE 62.5MCG/BLISTER 7 PUFFS/INHALER INH SCH (09:22)
[2022-09-12] MEDS: SERTRALINE HCL 50 MG TABLET PO SCH (09:23)
[2022-09-12] MEDS: PANTOprazole 40 MG in SYRINGE 0 ML IV SCH (09:23)
[2022-09-12] MEDS: TORSEMIDE 20 MG TAB PO SCH (09:23)
[2022-09-12] MEDS: PROPRANOLOL HCL 80 MG TAB PO SCH (09:23)
[2022-09-12] MEDS: LOSARTAN POTASSIUM 50 MG TAB PO SCH (09:23)
[2022-09-12] MEDS: buprenorphine HCL 8 MG SUBL SL SCH ×3 (09:26→15:50)
[2022-09-12] MEDS: INSULIN ASPART PER UNIT CHARGE SC SCH ×2 (09:37→13:18)
--- NOTE | 2022-09-12 10:21 | Gastroenterology Progress Note ---
Date of Service September 12, 2022 Assessment & Plan (1) Acute lower GI bleeding: Plan: Seems to be getting better like you would expect with an acute infectious process. If does okay during the day should be good to go home from my standpoint. Admission and Anticipated Discharge Date Admission Date: September 10, 2022 Subjective He says the diarrhea is almost gone. Had bowel movement last night, slept through the night and had one a little while ago of "pudding" consistency. No blood any more. H/H stable Physical Exam Constitutional: WD/WN, vitals as above Results & Data Vital Signs (Past 12 Hours) Vital Signs Temp Pulse Resp BP Pulse Ox O2 Del Method 09/12/22 08:01 36.9 C 75 18 105/66 92 Room Air 09/12/22 04:07 36.7 C 76 20 96/41 L 92 Room Air 09/12/22 00:18 36.9 C 76 20 92/52 L 96 Room Air
--- NOTE | 2022-09-12 12:20 | Hospitalist Progress Note ---
Date of Service September 12, 2022 Assessment & Plan Admission and Anticipated Discharge Date Admission Date: September 10, 2022 Results & Data Results & Data Vital Signs (Past 12 Hours) Vital Signs Temp Pulse Resp BP Pulse Ox O2 Del Method 09/12/22 11:56 36.9 C 78 16 106/64 93 Room Air 09/12/22 08:01 36.9 C 75 18 105/66 92 Room Air 09/12/22 04:07 36.7 C 76 20 96/41 L 92 Room Air PG Care Time/CCT Total # of Minutes Spent Total Time Spent with Patient: Total time spent is greater than 50% in coordination of care (as documented) at patient's floor/unit and/or counseling patient: Coding Diagnoses
--- NOTE | 2022-09-12 14:32 | Discharge Summary ---
Date of Service September 12, 2022 Admission HPI Per Admitting Provider Zan is a 67-year-old male with a past medical history of hepatitis C, COPD, hypertension, chronic respiratory failure with hypoxia on home oxygen, DM 2, bullous pemphigoid who was recently had severe watery diarrhea with margaret blood. BUN is normal, hemoglobin 9.6 with last 11.2. He is recommended for admission for lower GI bleed with a negative CTA/P with contrast Pt going 'quite often. 7-10 time sper day x2-3 days' Lot of red blood. 1-2 episodes of darker BM. +epigastric tenderness. last scope 'been a while, few years. Was done at [facility] No lightheadeness, no dizziness No chest pain or chest pressure. No syncope or presyncope No vomiting, slight nause Reports he just had surgery this past week at [facility]. Had a complicated course where he had a left knee replacement which got infected, was explanted and had a spacer placed, and then was replaced this past week. He is currently on doxycycline, fluconazole, and oral vancomycin which were started 09/09.[id number] qd x30, vanco q250mg 09/09 x10 days, doxy 100 bid 14d 09/09/22 Medical History: Reviewed Medications: Reviewed Surgical History: Reviewed Family history: Reviewed Allergies: Reviewed Social History: Denies tobacco etoh Code Status: Full Principal Diagnosis GIB Discharge Exam General: A&Ox3. NAD. Cooperative. HEENT: Atraumatic, normocephalic. Vision/hearing intact Pulm: CTAB A&P. -wheezes, -rales, -rhonchi. Symmetrical chest rise. No increased work of breathing. No respiratory distress. Cardiac: RRR, -mrg. Radial pulses intact and symmetrical. Abdominal: Mild epigastric tenderness, mild diffuse lower abdominal tenderness without rebound/guard BS present. Extremities: Left anterior leg wound with dressing overlying, no warmth/erythema/tenderness Discharge Data Allergies Allergy/AdvReac Type Severity Reaction Status Date / Time acesulfame Allergy Severe SEVERE Verified 09/10/22 23:06 RASH & VOMIT naloxone Allergy Severe SEVERE Verified 09/10/22 23:06 RASH & VOMIT Sulfa (Sulfonamide Allergy Intermediate RASH / Verified 09/10/22 23:06 Antibiotics) ITCHINESS quetiapine [From Seroquel] AdvReac Intermediate Nightmare Unverified 09/10/22 23:06 amitriptyline AdvReac Unknown Unknown Unverified 09/10/22 23:06 morphine AdvReac Unknown Unknown Unverified 09/10/22 23:06 Consultations 09/10/22 20:48 ED Decision to Admit Stat 09/11/22 10:58 Consult Gastroenterology Routine Ordered Studies 09/10/22 16:26 CT abd pelvis IV con only Stat Hospital Course (1) GIB (gastrointestinal bleeding): Suspected lower GI bleed In the setting of multiple episodes of diarrhea BUN is negative, pt reporting mostly bright red blood, patient does have some epigastric pain upper is not ruled out but less likely. We will continue PPI IV twice daily Rectal exam in the ER without hemorrhoids or fissure Hemoglobin trended every 4 hours: hemoglobin has been stable. Crossmatched, 2 units of blood on hold. Transfuse for hemoglobin less than 7 or 1 unit for acute symptoms. Patient consented at time of admission MCV 77, iron studies pending in addition to B12/folate consulted Gastro: appreciate input, will place on a clear diet. No blood thinners Hemoglobin has been stable, and patient has had less hematochezia. Likely infectious. Will recommend rechecking his hemoglobin later this week. Patient will need a close followup with PCP. COPD with chronic respiratory failure on oxygen Continue oxygen goal SPO2 greater than 89% Continue home inhalers for equivalent L Knee recent revision at [facility] [place] - Dr Alvarado hardware, spacer removed. on doxycycline, fluconazole, oral vancomycin. ordered placed. - [id number] qd x30, vanco q250mg 09/09 x10 days, doxy 100 bid 14d 09/09/22 - Patient will followup with ortho to get sutures removed. -also obtained wound culture as they was a small area of his sutures with serosanguinous drainage, his leg did not look infected however, no erythema. DM 2 Goal BSG [id number] Hold home antiglycemic's Sliding scale Chronic opioid use Continue buprenorphine twice daily GERD Continue Protonix, increased to 40 twice daily. Lower suspicion for upper GI bleed. Recent acute cholecystitis with biliary calculus S/p cholecystectomy with fungemia discharged 07/28/2020. Continued on fluconazole No signs of biliary pathology or postoperative hematoma/abscess on CT (2) COPD (chronic obstructive pulmonary disease): (3) COPD exacerbation: (4) DVT prophylaxis: (5) Chronic respiratory failure with hypoxia, on home O2 therapy: Total Time Total Time Spent Total Time Spent (In Minutes): 32 Discharge Plan Discharge Items Patient Disposition: Home - Self-Care Reason For Visit: GIB, TACHYCARDIA Discharge Diagnosis: GIB Activity: Resume your previous activity Non-emergency contact: Primary Care Provider Call non-emergency contact if: you have any medication questions Follow-up/Referrals: Doc Morejon MD [Primary Care Provider] - Diet: Carb Consistent or DM2 and Low Fiber Addtl Attending Provider Instructions: Recommend close followup with your Ortho surgeon to remove sutures Recommend continue antibiotics. Followup with PCP in 1 week Recommend rechecking your blood work in 3 days. If you have fatigue, weakness, worsening blood in stools, please return to the hospital. A low fiber diet is typically recommended for individuals with certain medical conditions or as a temporary measure to relieve digestive symptoms. Here is some basic information about a low fiber diet: 1. Purpose: A low fiber diet limits the intake of foods high in dietary fiber to reduce the workload on the digestive system and ease symptoms like diarrhea, abdominal pain, or cramping. 2. Foods to limit or avoid: - Whole grains (e.g., whole wheat, whole oats, brown rice) - Legumes (e.g., lentils, beans, chickpeas) - Nuts and seeds - Raw fruits and vegetables (except for some cooked or peeled options) - High-fiber cereals or breads 3. Foods generally allowed: - Refined grains (e.g., white bread, white rice, refined cereals) - Cooked and peeled fruits and vegetables (e.g., applesauce, canned fruits, cooked carrots) - Lean meats, poultry, and fish - Dairy products (unless lactose intolerant) - Eggs 4. Cooking and preparation methods: - Choose peeled or cooked fruits and vegetables instead of raw ones. - Remove seeds and skin from fruits and vegetables. - Opt for refined grain products instead of whole grains. - Cook or soak legumes to reduce their fiber content. It's important to note that a low fiber diet should only be followed under the guidance of a healthcare professional, as it is not suitable for long-term use. They can provide personalized recommendations based on your specific needs and c ondition.. Pending Studies at Discharge: No Stand-Alone Forms: [facility], Smoking Cessation Medications and DC Order Prescriptions: Continued sertraline 100 mg tablet 150 mg PO DAILY trazodone 50 mg tablet 100 mg PO HS PRN (Reason: sleep) alogliptin 12.5 mg tablet 12.5 mg PO DAILY sennosides 8.6 mg Tablet 8.6 mg PO BID PRN (Reason: Constipation) propranolol 80 mg Tablet 80 mg PO BID torsemide 20 mg Tablet 40 mg PO QAM triamcinolone acetonide 0.5 % Cream 1 applic TOPICAL BID Rx Instructions: Apply a small amount to skin twice a day as needed for itching. Do not apply to face or skin folds. gabapentin 300 mg Capsule 900 mg PO BID prazosin 2 mg Capsule 4 mg PO HS artificial saliva (cmce-lytes) [place] With Pump 1 spray PO 5XD PRN (Reason: Dry Mouth) pantoprazole 20 mg Tablet,Delayed Release (Dr/Ec) 20 mg PO BID atorvastatin 20 mg Tablet 20 mg PO HS niacin 500 mg Capsule, Extended Release 500 mg PO DAILY losartan 100 mg Tablet 100 mg PO DAILY finasteride 5 mg Tablet 5 mg PO DAILY fluconazole 100 mg Tablet 400 mg PO QAM Qty: 13 0RF azathioprine [Imuran] 50 mg Tablet 50 mg PO QID Qty: 30 0RF buprenorphine HCl 8 mg Tablet, Sublingual 8 mg sublingual BID Qty: 10 0RF Incruse Ellipta 62.5 mcg/actuation Blister With Device 1 puff inhalation QAM Qty: 1 0RF Arnuity Ellipta 100 mcg/actuation Blister With Device 1 puff inhalation QAM Qty: 1 0RF fluconazole 100 mg tablet 400 mg PO DAILY Rx Instructions: It says to take them for 30 days but they only gave him a 3 day supply. vancomycin 250 mg capsule 250 mg PO Q6 Rx Instructions: filled 09/09/22, take for 10 days doxycycline hyclate 100 mg tablet 100 mg PO Q12 Rx Instructions: Take for 14 days. Was filled 09/09/22 Discharge Orders: Discharge Order (Routine); Ordered 09/12/22 Ordered By: Jimmy Burger/Other Patient Handouts: Managing Type 2 Diabetes Admission Data Admit Date/Time: 09/10/22 21:52 Attending Provider: Jimmy Martinez Admit Provider: George Bland Primary Care Provider: Doc Morejon Other Providers: George Bland ; [facility] ; Ludivina Huynh Jr Other Interventions: Discharge Summary Assessment (RN) Last Done: 09/12/22 16:27 Coding Level of Care Code 07176 INP/OBS DISCH >30 MIN Diagnoses GIB (gastrointestinal bleeding) K92.2 COPD (chronic obstructive pulmonary disease) J44.9 COPD type: unspecified COPD COPD exacerbation J44.1 DVT prophylaxis Z29.9 Chronic respiratory failure with hypoxia, on home O2 therapy J96.11; Z99.81
== END 2022-09-12 18:08 | disposition home or self-care (01) ==
LOC: ED 16:05 → 2W 16:05 → SUATTDRO 21:52 → 2W 22:57

== ENCOUNTER 2022-10-02 15:54 | Inpatient (IN) ==
[2022-10-02] MEDS ORDERED: PANTOprazole 80 MG in DEXTROSE 5% 100 ML IV STA (16:20)
[2022-10-02] MEDS ORDERED: FAMOTIDINE 20MG IV PUSH 20 MG/5 ML SYR IV STA (16:20)
[2022-10-02 16:39] LABS: Basophils # (auto) 0.06 K/uL (0-0.2); Basophils % (auto) 0.7 %; Eosinophils # (auto) 0.82 K/uL (0-0.50); Hematocrit (blood only) 31.2 % (42.0-52.0); Hemoglobin 9.3 g/dl (14.0-18.0); Immature Granulocytes # (auto) 0.06 K/uL (0.01-0.20); Immature Granulocytes % (auto) 0.7 %; Lymphocytes # (auto) 1.47 K/uL (1.2-3.4); Lymphocytes % (auto) 17.9 %; Mean Corpuscular Hemoglobin 23.1 pg (25.0-34.0); Mean Corpuscular Hgb Conc 29.8 g/dL (32.0-36.0); Mean Corpuscular Volume 77.4 fL (80.0-100.0); Mean Platelet Volume 8.5 fL (9.4-12.4); Monocytes % (auto) 7.3 %; Neutrophils # (auto) 5.18 K/uL (1.40-6.50); Neutrophils % (auto) 63.4 %; Platelet Count 370 K/uL (130-400); RDW Coefficient of Variation 15.1 % (11.5-14.5); RDW Standard Deviation 42.5 fL (36.4-46.3); Red Blood Count 4.03 M/uL (4.70-6.10); White Blood Count 8.19 K/ul (4.8-10.8)
--- NOTE | 2022-10-02 16:39 | Emergency Department Note ---
Impression & Plan Rectal bleeding, Anemia, SOB (shortness of breath), Pedal edema ED Provider Note NAME: MICHAEL MCGUIRE AGE: 67 SEX: M : 1955 ARRIVES VIA: Ambulance INFORMANT: [Patient] ED PROVIDER(S): [Chaitanya Cazares MD] CHIEF COMPLAINT: Rectal bleeding HISTORY OF PRESENT ILLNESS: The patient is a 67-year-old male who was in our hospital recently for rectal bleeding. During his hospitalization, the bleeding was thought to be infectious, no colonoscopy was done. The bleeding was thought to be coming from his colon. The patient states that for at least 2 days, he has had return of rectal bleeding. The blood is bright red and sometimes a bit darker. He has soaked about 8-10 depends daily. The patient has been slightly short of breath and weak. No fever. No abdominal pain. He does not take any blood thinning agents. PMHx/PSHx: See Below SOCIAL HISTORY: See Below. PHYSICAL EXAM: GENERAL: Patient is in no acute distress. HEENT: No acute trauma, normocephalic atraumatic, mucous membranes moist, no nasal congestion. NECK: No stridor, no adenopathy, no meningismus, trachea is midline. LUNGS: Clear to auscultation bilaterally, no wheeze, no rhonchi, breath sounds equal. HEART: Without murmurs gallops or rubs, regular rate and rhythm. ABDOMEN: Soft, nontender, bowel sounds positive, no peritonitis. EXTREMITIES: No cyanosis. There is moderate bilateral pedal edema. The patient does have an area of lost superficial skin to the lateral aspect of the right leg. There is some surrounding erythema and some warmth here. Patient has a healing surgical wound over the left anterior knee. He did have a recent left knee replacement--there is no surrounding erythema at this site. NEUROLOGIC: Oriented x 3, no acute motor or sensory deficits, no focal weakness. SKIN: No jaundice, no diaphoresis. Rectal: Bright red blood noted per rectum, heme positive. No external source for bleeding noted. DIFFERENTIAL DIAGNOSIS: Lower GI bleeding, hemorrhoidal bleeding, anal tear or fissure, abscess, anemia, electrolyte imbalance, coagulopathy, upper GI bleed, among others. EMERGENCY DEPARTMENT COURSE/PROCEDURES: Prior/Outside records reviewed: Recent discharge summary. ECG per my interpretation: Indication was GI bleeding. The ECG shows a normal sinus rhythm with a rate of 100. There is diffuse nonspecific ST change. No ST elevation, no PVCs. The QTc is 485. Continuous Cardiac Monitoring per my interpretation: An order was placed for continuous cardiac monitoring. The monitor shows a rate of 99 with normal sinus rhythm. MEDICAL DECISION MAKING: There is no leukocytosis. The hemoglobin was low at 9.3 but this appears baseline for the patient. There was a normal platelet count. No coagulopathy. No renal failure or significant electrolyte abnormality. Alk phos was elevated, the remaining liver enzymes were unremarkable. ECG shows a normal sinus rhythm, no acute ischemia. Cardiac enzyme testing x1 is not consistent with acute card iac injury. Chest x-ray does not show mediastinal widening, pneumonia or pneumothorax. On exam, the patient had no external source for rectal bleeding, a digital exam did show bright red blood per rectum, this tested heme positive. The patient presents with recurrence of rectal bleeding. He was in the hospital recently for something similar. The patient requires a repeat hospital stay. He would likely benefit from a colonoscopy to determine the presumed lower GI bleeding source. The patient is not in need of an emergent blood transfusion. He is currently resting comfortably. Patient was given IV Protonix, 80 mg. He was given IV Pepcid. The patient is aware of his findings and the need for hospital a stay, I did speak with case management, the on-call hospitalist was consulted. DISPOSITION: Patient's presentation and findings warrant a hospital stay. Past Med/Surg History Medical History Acute cholecystitis due to biliary calculus chronic cholecystitis, Acute renal failure Anemia Arthralgia of multiple sites Bullous pemphigoid Chronic pain Chronic pain COPD (chronic obstructive pulmonary disease) DM type 2 (diabetes mellitus, type 2) Hepatitis C antibody positive in blood History of intravenous drug abuse Hypertension Hypoxia Memory loss MRSA infection PATIENT STATES WAS 1-2 YEARS AGO Neuropathy Obesity Rheumatoid arthritis Surgical History History of incision and drainage Family History Other Hypertension Social History Smoking Status: Unknown if ever smoked Tobacco Type: Cigarettes packs per day: 2; Cigarettes Per Day: 24; Second Hand Exposure: No; Do You Dip or Chew Tobacco: No; Hx Alcohol Use: No Hx Substance Use: No Preferred Language: Finnish Communication Ability: Effective Pt Escort Required: No Beliefs That Will Affect Care: None marital status: Current Living Situation: Spouse Current Living Situation Comment: with [facility] Feels Safe at Home: Yes Assistive Devices: Oxygen - at Night Allergies Allergies Allergy/AdvReac Type Severity Reaction Status Date / Time acesulfame Allergy Severe SEVERE Verified 09/10/22 23:06 RASH & VOMIT naloxone Allergy Severe SEVERE Verified 09/10/22 23:06 RASH & VOMIT Sulfa (Sulfonamide Allergy Intermediate RASH / Verified 09/10/22 23:06 Antibiotics) ITCHINESS quetiapine [From Seroquel] AdvReac Intermediate Nightmare Unverified 09/10/22 23:06 amitriptyline AdvReac Unknown Unknown Unverified 09/10/22 23:06 morphine AdvReac Unknown Unknown Unverified 09/10/22 23:06 Home Meds Home Medications Medication Instructions Recorded Confirmed gabapentin 300 mg capsule 900 mg PO BID 10/31/18 10/02/22 alogliptin 12.5 mg tablet 12.5 mg PO DAILY 08/20/19 10/02/22 pantoprazole 20 mg tablet,delayed 20 mg PO QAM 07/23/20 10/02/22 release baclofen 10 mg tablet 10 mg PO BID 10/02/22 10/02/22 levothyroxine 50 mcg capsule 50 mcg PO DAILY 10/02/22 10/02/22 vancomycin 125 mg capsule 125 mg PO DAILY 10/02/22 10/02/22 Results & Data (ED) Vital Signs Vital Signs - 24 hr 10/02/22 16:03 10/02/22 17:31 10/02/22 18:39 Temperature 37.1 C Temperature Source Oral Pulse Rate 100 H Pulse Rate [Right Finger] 96 H 113 H Pulse Rate from SpO2 Sensor Respiratory Rate 16 20 22 Respiratory Effort / Characteristics Non-Labored Spontaneous Non-Labored Spontaneous Respiratory Depth Normal Normal Blood Pressure 131/94 Blood Pressure [Right Arm] 137/92 138/99 Blood Pressure Mean 106 Blood Pressure Mean [Right Arm] 107 112 Pulse Oximetry 92 90 90 Oxygen Delivery Method Room Air Room Air Room Air Sepsis Recent Fever Within 48 Hours No Sepsis New/Unexplained Change in Mental Status N/A Sepsis Action Taken by Nursing No Action Required 10/02/22 16:22 10/02/22 16:30 10/02/22 16:30 Temperature Temperature Source Pulse Rate 106 H 96 H Pulse Rate [Right Finger] Pulse Rate from SpO2 Sensor 105 H 94 H Respiratory Rate 21 19 Respiratory Effort / Characteristics Respiratory Depth Blood Pressure 129/90 Blood Pressure [Right Arm] Blood Pressure Mean 103 Blood Pressure Mean [Right Arm] Pulse Oximetry 97 90 Oxygen Delivery Method Sepsis Recent Fever Within 48 Hours Sepsis New/Unexplained Change in Mental Status Sepsis Action Taken by Nursing 10/02/22 16:40 10/02/22 16:50 10/02/22 17:00 Temperature Temperature Source Pulse Rate 91 H 98 H Pulse Rate [Right Finger] Pulse Rate from SpO2 Sensor Respiratory Rate 15 17 Respiratory Effort / Characteristics Respiratory Depth Blood Pressure 124/87 Blood Pressure [Right Arm] Blood Pressure Mean 99 Blood Pressure Mean [Right Arm] Pulse Oximetry Oxygen Delivery Method Sepsis Recent Fever Within 48 Hours Sepsis New/Unexplained Change in Mental Status Sepsis Action Taken by Nursing 10/02/22 17:00 10/02/22 17:10 10/02/22 17:20 Temperature Temperature Source Pulse Rate 93 H 90 101 H Pulse Rate [Right Finger] Pulse Rate from SpO2 Sensor Respiratory Rate 19 18 20 Respiratory Effort / Characteristics Respiratory Depth Blood Pressure Blood Pressure [Right Arm] Blood Pressure Mean Blood Pressure Mean [Right Arm] Pulse Oximetry Oxygen Delivery Method Sepsis Recent Fever Within 48 Hours Sepsis New/Unexplained Change in Mental Status Sepsis Action Taken by Nursing 10/02/22 17:30 10/02/22 17:30 10/02/22 17:40 Temperature Temperature Source Pulse Rate 90 99 H Pulse Rate [Right Finger] Pulse Rate from SpO2 Sensor Respiratory Rate 20 21 Respiratory Effort / Characteristics Respiratory Depth Blood Pressure 137/92 Blood Pressure [Right Arm] Blood Pressure Mean 107 Blood Pressure Mean [Right Arm] Pulse Oximetry Oxygen Delivery Method Sepsis Recent Fever Within 48 Hours Sepsis New/Unexplained Change in Mental Status Sepsis Action Taken by Nursing 10/02/22 17:50 10/02/22 17:58 10/02/22 17:58 Temperature Temperature Source Pulse Rate 100 H 106 H Pulse Rate [Right Finger] Pulse Rate from SpO2 Sensor Respiratory Rate 22 21 Respiratory Effort / Characteristics Respiratory Depth Blood Pressure 140/88 Blood Pressure [Right Arm] Blood Pressure Mean 105 Blood Pressure Mean [Right Arm] Pulse Oximetry Oxygen Delivery Method Sepsis Recent Fever Within 48 Hours Sepsis New/Unexplained Change in Mental Status Sepsis Action Taken by Nursing 10/02/22 18:00 10/02/22 18:01 10/02/22 18:01 Temperature Temperature Source Pulse Rate 102 H 97 H Pulse Rate [Right Finger] Pulse Rate from SpO2 Sensor Respiratory Rate 15 17 Respiratory Effort / Characteristics Respiratory Depth Blood Pressure 128/94 Blood Pressure [Right Arm] Blood Pressure Mean 105 Blood Pressure Mean [Right Arm] Pulse Oximetry Oxygen Delivery Method Sepsis Recent Fever Within 48 Hours Sepsis New/Unexplained Change in Mental Status Sepsis Action Taken by Nursing 10/02/22 18:04 10/02/22 18:30 10/02/22 18:39 Temperature Temperature Source Pulse Rate 100 H 112 H Pulse Rate [Right Finger] Pulse Rate from SpO2 Sensor Respiratory Rate 13 17 Respiratory Effort / Characteristics Respiratory Depth Blood Pressure 138/99 Blood Pressure [Right Arm] Blood Pressure Mean 112 Blood Pressure Mean [Right Arm] Pulse Oximetry Oxygen Delivery Method Sepsis Recent Fever Within 48 Hours Sepsis New/Unexplained Change in Mental Status Sepsis Action Taken by Nursing 10/02/22 18:40 10/02/22 18:40 10/02/22 18:50 Temperature Temperature Source Pulse Rate 108 H 102 H Pulse Rate [Right Finger] Pulse Rate from SpO2 Sensor Respiratory Rate 17 Respiratory Effort / Characteristics Respiratory Depth Blood Pressure 123/94 Blood Pressure [Right Arm] Blood Pressure Mean 103 Blood Pressure Mean [Right Arm] Pulse Oximetry Oxygen Delivery Method Sepsis Recent Fever Within 48 Hours Sepsis New/Unexplained Change in Mental Status Sepsis Action Taken by Nursing 10/02/22 19:00 10/02/22 19:00 10/02/22 19:10 Temperature Temperature Source Pulse Rate 98 H 100 H Pulse Rate [Right Finger] Pulse Rate from SpO2 Sensor Respiratory Rate 17 18 Respiratory Effort / Characteristics Respiratory Depth Blood Pressure 141/98 H Blood Pressure [Right Arm] Blood Pressure Mean 112 Blood Pressure Mean [Right Arm] Pulse Oximetry Oxygen Delivery Method Sepsis Recent Fever Within 48 Hours Sepsis New/Unexplained Change in Mental Status Sepsis Action Taken by Usp Medications Current Medication List: was personally reviewed by me Laboratory Data Attestation: I reviewed the patient's lab results. 10/02/22 16:16 10/02/22 16:16 Lab Results 10/02/22 10/02/22 10/02/22 Range/Units 16:16 16:16 16:16 WBC 8.19 (4.8-10.8) K/ul RBC 4.03 L (4.70-6.10) M/uL Hgb 9.3 L (14.0-18.0) g/dl Hct 31.2 L (42.0-52.0) % MCV 77.4 L (80.0-100.0) fL MCH 23.1 L (25.0-34.0) pg MCHC 29.8 L (32.0-36.0) g/dL RDW Std Deviation 42.5 (36.4-46.3) fL RDW Coeff of Fely 15.1 H (11.5-14.5) % Plt Count 370 (130-400) K/uL MPV 8.5 L (9.4-12.4) fL Immature Gran % (Auto) 0.7 % Neut % (Auto) 63.4 % Lymph % (Auto) 17.9 % Josephine % (Auto) 7.3 % Eos % (Auto) 10.0 % Baso % (Auto) 0.7 % Neut # (Auto) 5.18 (1.40-6.50) K/uL Lymph # (Auto) 1.47 (1.2-3.4) K/uL Josephine # (Auto) 0.60 H (0.11-0.59) K/uL Eos # (Auto) 0.82 H (0-0.50) K/uL Baso # (Auto) 0.06 (0-0.2) K/uL Immature Gran # (Auto) 0.06 (0.01-0.20) K/uL PT 11.4 (9.0-12.0) Seconds INR 1.0 (0.9-1.1) APTT 30.8 (21.0-31.0) Seconds PTT Ratio 1.1 Sodium 135 L (136-145) mmol/L Potassium 4.2 (3.5-5.1) mmol/L Chloride 101 (98-107) mmol/L Carbon Dioxide 30 (21-32) mmol/L Anion Gap 4 (3-11) BUN 10 (6-23) mg/dl Creatinine 0.90 (0.6-1.4) mg/dl Est Cr Clr Drug Dosing 102.2 ml/min Est GFR ( Amer) 102.8 ml/min Est GFR (Non-Af Amer) 88.7 ml/min BUN/Creatinine Ratio 11.1 (10-20) Glucose 132 H (70-99(Fasting)) mg/dl Calcium 8.9 (8.6-10.3) mg/dl Total Bilirubin 0.3 (0.2-1.0) mg/dl AST 16 (13-39) U/L ALT 10 (7-52) U/L Alkaline Phosphatase 278 H (34-104) U/L Troponin I High Sens 9.1 (0-20) pg/ml Total Protein 8.1 (6.0-8.3) gm/dl Albumin 3.0 L (3.4-5.0) gm/dl Globulin 5.1 H (2.5-4.0) gm/dl Albumin/Globulin Ratio 0.6 L (0.9-2) Blood Type Antibody Screen 10/02/22 Range/Units 16:26 WBC (4.8-10.8) K/ul RBC (4.70-6.10) M/uL Hgb (14.0-18.0) g/dl Hct (42.0-52.0) % MCV (80.0-100.0) fL MCH (25.0-34.0) pg MCHC (32.0-36.0) g/dL RDW Std Deviation (36.4-46.3) fL RDW Coeff of Fely (11.5-14.5) % Plt Count (130-400) K/uL MPV (9.4-12.4) fL Immature Gran % (Auto) % Neut % (Auto) % Lymph % (Auto) % Josephine % (Auto) % Eos % (Auto) % Baso % (Auto) % Neut # (Auto) (1.40-6.50) K/uL Lymph # (Auto) (1.2-3.4) K/uL Josephine # (Auto) (0.11-0.59) K/uL Eos # (Auto) (0-0.50) K/uL Baso # (Auto) (0-0.2) K/uL Immature Gran # (Auto) (0.01-0.20) K/uL PT (9.0-12.0) Seconds INR (0.9-1.1) APTT (21.0-31.0) Seconds PTT Ratio Sodium (136-145) mmol/L Potassium (3.5-5.1) mmol/L Chloride (98-107) mmol/L Carbon Dioxide (21-32) mmol/L Anion Gap (3-11) BUN (6-23) mg/dl Creatinine (0.6-1.4) mg/dl Est Cr Clr Drug Dosing ml/min Est GFR ( Amer) ml/min Est GFR (Non-Af Amer) ml/min BUN/Creatinine Ratio (10-20) Glucose (70-99(Fasting)) mg/dl Calcium (8.6-10.3) mg/dl Total Bilirubin (0.2-1.0) mg/dl AST (13-39) U/L ALT (7-52) U/L Alkaline Phosphatase (34-104) U/L Troponin I High Sens (0-20) pg/ml Total Protein (6.0-8.3) gm/dl Albumin (3.4-5.0) gm/dl Globulin (2.5-4.0) gm/dl Albumin/Globulin Ratio (0.9-2) Blood Type A Positive Antibody Screen NEGATIVE Administered Medications Discontinued Medications Pantoprazole Sodium 80 mg/ (Dextrose) 120 mls @ 480 mls/hr IV ONE STA Stop: 10/02/22 16:34 Last Infusion: 10/02/22 16:55 Dose: 0 mls/hr Documented By: Admin: 10/02/22 16:39 Dose: 480 mls/hr Documented By: PAULINEW Famotidine (Pepcid 20mg Iv Push) 20 mg in 5 mls @ 2.5 mls/min IV NOW STA Stop: 10/02/22 16:21 Last Admin: 10/02/22 16:39 Dose: 2.5 mls/min Documented By: ASW Imaging Data Radiologist's Impression: Chest X-Ray 10/02/22 16:20 XR chest 1V portable HISTORY: 67 years-old Male sob acute shortness of breath COMPARISON: 07/23/2020 TECHNIQUE: AP view of the chest FINDINGS: Cardiac silhouette is enlarged. No pneumothorax, pleural effusion, airspace consolidation or pulmonary edema. Degenerative changes of the shoulders and spine. IMPRESSION: No acute process. ACT 112: Negative or not required by law. The above report was generated using voice recognition software. It may contain grammatical, syntax or spelling errors. Electronically signed by: Ernesto Orantes M.D. 10/02/2022 5:01 PM Discharge Plan Visit Data Chief Complaint: Bleeding ED Provider: Chaitanya Cazares Discharge Problem: Rectal bleeding, Anemia, SOB (shortness of breath), Pedal edema Patient Disposition: Admitted As Inpatient Condition: Fair Discharge Instructions Interventions: ED Discharge Assessment Last Done: 10/02/22 21:07
--- NOTE | 2022-10-02 17:02 | XRay Report ---
XR chest 1V portable HISTORY: 67 years-old Male sob acute shortness of breath COMPARISON: 07/23/2020 TECHNIQUE: AP view of the chest FINDINGS: Cardiac silhouette is enlarged. No pneumothorax, pleural effusion, airspace consolidation or pulmonar y edema. Degenerative changes of the shoulders and spine. IMPRESSION: No acute process. ACT 112: Negative or not required by law. The above report was generated using voice recognition software. It may contain grammatical, syntax o r spelling errors. Electronically signed by: Ernesto Orantes M.D. 10/02/2022 5:01 PM
[2022-10-02 17:03] LABS: Albumin Globulin Ratio 0.6 (0.9-2); BUN Creatinine Ratio 11.1 (10-20); Bilirubin,Total 0.3 mg/dl (0.2-1.0); Calcium 8.9 mg/dl (8.6-10.3); Creatinine Clr Calc Pharmacy 102.2 ml/min; Est GFR (African American) 102.8 ml/min; Est GFR (Non-African American) 88.7 ml/min; Globulin 5.1 gm/dl (2.5-4.0); Potassium 4.2 mmol/L (3.5-5.1); Total Protein 8.1 gm/dl (6.0-8.3)
[2022-10-02 17:08] LABS: Partial Thromboplastin Ratio 1.1; Partial Thromboplastin Time 30.8 Seconds (21.0-31.0); Prothrombin Time 11.4 Seconds (9.0-12.0)
[2022-10-02 17:09] LABS: Troponin I High Sensitivity 9.1 pg/ml (0-20)
--- NOTE | 2022-10-02 19:21 | History & Physical Report ---
Date of Service October 02, 2022 Assessment & Plan (1) Acute lower GI bleeding: Plan: Subacute/ongoing lower GI bleeding. Fortunately hemodynamically stable except for a little bit of tachycardiaobviously watch this closely, type and cross 2 units, but no indication for transfusion right now. Follow clinically, follow hemoglobin, GI consults in the a.m. continue his home meds as he is on no antiplatelet or anticoagulants DVT prophylaxisambulation. Pharmacologic is obviously contraindicated due to his bright red blood per rectum, and mechanical prophylaxis would be of dubious benefit, and very real risk of skin breakdown given his mild lower extremity wounds venous stasis and lower extremity wounds including a slowly healing knee incisionlocal wound care. History of Present Illness Chief Complaint: bright red blood per rectum Primary Care Provider: Doc Morejon MD pleasant 67-year-old male here 2 weeks ago with lower GI bleedingwas stable for discharge home, bleeding was slowinghe notes it never really stopped over the last 2 weeks, he has always had some degree of bright red blood per rectumbut then the last day or so is increased a lot and it got him concerned and he came back to the hospital. No significant abdominal pain, no other complaints. Fortunately does not feel very weak lightheaded or dizzy. Feels he probably needs a colonoscopy. Allergies Allergy/AdvReac Type Severity Reaction Status Date / Time acesulfame Allergy Severe SEVERE Verified 09/10/22 23:06 RASH & VOMIT naloxone Allergy Severe SEVERE Verified 09/10/22 23:06 RASH & VOMIT Sulfa (Sulfonamide Allergy Intermediate RASH / Verified 09/10/22 23:06 Antibiotics) ITCHINESS quetiapine [From Seroquel] AdvReac Intermediate Nightmare Unverified 09/10/22 23:06 amitriptyline AdvReac Unknown Unknown Unverified 09/10/22 23:06 morphine AdvReac Unknown Unknown Unverified 09/10/22 23:06 Home Medications Medication Instructions Recorded Confirmed Type gabapentin 300 mg capsule 900 mg PO BID 10/31/18 10/02/22 History alogliptin 12.5 mg tablet 12.5 mg PO DAILY 08/20/19 10/02/22 History pantoprazole 20 mg tablet,delayed 20 mg PO QAM 07/23/20 10/02/22 History release baclofen 10 mg tablet 10 mg PO BID 10/02/22 10/02/22 History levothyroxine 50 mcg capsule 50 mcg PO DAILY 10/02/22 10/02/22 History vancomycin 125 mg capsule 125 mg PO DAILY 10/02/22 10/02/22 History Past Med/Surg History Medical History Acute cholecystitis due to biliary calculus chronic cholecystitis, Acute renal failure Anemia Arthralgia of multiple sites Bullous pemphigoid Chronic pain Chronic pain COPD (chronic obstructive pulmonary disease) DM type 2 (diabetes mellitus, type 2) Hepatitis C antibody positive in blood History of intravenous drug abuse Hypertension Hypoxia Memory loss MRSA infection PATIENT STATES WAS 1-2 YEARS AGO Neuropathy Obesity Rheumatoid arthritis Surgical History History of incision and drainage Family History Other Hypertension Social History Smoking Status: Unknown if ever smoked Tobacco Type: Cigarettes packs per day: 2; Cigarettes Per Day: 24; Second Hand Exposure: No; Do You Dip or Chew Tobacco: No; Hx Alcohol Use: No Hx Substance Use: No Preferred Language: Maori Communication Ability: Effective Veneer Stock Layer Required: No Beliefs That Will Affect Care: None marital status: Current Living Situation: Spouse Current Living Situation Comment: with [facility] Feels Safe at Home: Yes Assistive Devices: Oxygen - at Night Review of Systems Review of Systems: All systems reviewed & are unremarkable except as noted in HPI & below Physical Exam Physical Exam: In general he is awake alert oriented pleasant no distress. He is sitting up in bed. HEENT normocephalic atraumatic mucous membranes moist. Breathing unlabored no accessory muscle use good effort. Skin shows venous stasis changes left knee incision wound that is slowly healing by secondary intent with no surrounding erythema and only thin amounts of inflammatory appearing exudatehe notes this is better than it was, he notes his surgery was about a month ago, he also has a few other areas of venous stasis related skin breakdown without glenny rounding erythema. Neuro shows cranial nerves II through XII are grossly intact gross motor and sensory are intact. Results & Data Results & Data Vital Signs (Past 12 Hours) Vital Signs Temp Pulse Pulse Resp BP BP Pulse Ox 10/02/22 18:39 113 H 22 138/99 90 10/02/22 17:31 96 H 20 137/92 90 10/02/22 16:03 98.8 F 100 H 16 131/94 92 O2 Del Method 10/02/22 18:39 Room Air 10/02/22 17:31 Room Air 10/02/22 16:03 Room Air Code Status & VTE Plan VTE Prophylaxis Plan VTE Prophylaxis will be ordered: No Reason for no VTE drug order: Contraindicated PG Care Time/CCT Total # of Minutes Spent Total Time Spent with Patient: Total time spent is greater than 50% in coordination of care (as documented) at patient's floor/unit and/or counseling patient: Coding Level of Care Code 41031 INT INP/OBS CARE 3/75MIN Diagnoses Acute lower GI bleeding K92.2
[2022-10-02] MEDS ORDERED: POLYETHYLENE (MIRALAX) 17 GM PACK PO PRN (21:17)
[2022-10-02] MEDS ORDERED: MAGNESIUM HYDROXIDE SUSP 30 ML UDC PO PRN (21:17)
[2022-10-02] MEDS ORDERED: ONDANSETRON INJ 2 MG/ML 2 ML VIAL IV PRN (21:17)
[2022-10-02] MEDS ORDERED: ALUMINUM/MAGNESIUM SUSP 30 ML UDC PO PRN (21:17)
[2022-10-02] MEDS ORDERED: SODIUM CHLORIDE 0.9% 250 ML IV PRN (21:17)
[2022-10-02] MEDS: BACLOFEN 10 MG TAB PO SCH (22:11)
[2022-10-02] MEDS: GABAPENTIN 300 MG CAP PO SCH (22:11)
[2022-10-02] MEDS: ACETAMINOPHEN 325 MG TAB PO PRN (22:12)
[2022-10-03] MEDS: ACETAMINOPHEN 325 MG TAB PO PRN ×2 (02:08→06:03)
[2022-10-03] MEDS: LEVOTHYROXINE SODIUM 50 MCG TABLET PO SCH (06:03)
[2022-10-03 07:02] LABS: BUN Creatinine Ratio 10.1 (10-20); Calcium 8.2 mg/dl (8.6-10.3); Creatinine Clr Calc Pharmacy 91.6 ml/min; Est GFR (African American) 91.6 ml/min; Potassium 3.8 mmol/L (3.5-5.1)
[2022-10-03 07:07] LABS: Basophils # (auto) 0.07 K/uL (0-0.2); Basophils % (auto) 0.9 %; Eosinophils # (auto) 0.92 K/uL (0-0.50); Eosinophils % (auto) 11.2 %; Hematocrit (blood only) 28.9 % (42.0-52.0); Hemoglobin 8.5 g/dl (14.0-18.0); Immature Granulocytes # (auto) 0.03 K/uL (0.01-0.20); Immature Granulocytes % (auto) 0.4 %; Lymphocytes # (auto) 1.87 K/uL (1.2-3.4); Lymphocytes % (auto) 22.8 %; Mean Corpuscular Hemoglobin 22.7 pg (25.0-34.0); Mean Corpuscular Hgb Conc 29.4 g/dL (32.0-36.0); Mean Corpuscular Volume 77.3 fL (80.0-100.0); Mean Platelet Volume 8.5 fL (9.4-12.4); Monocytes # (auto) 0.97 K/uL (0.11-0.59); Monocytes % (auto) 11.8 %; Neutrophils # (auto) 4.33 K/uL (1.40-6.50); Neutrophils % (auto) 52.9 %; Platelet Count 323 K/uL (130-400); RDW Coefficient of Variation 15.2 % (11.5-14.5); RDW Standard Deviation 41.9 fL (36.4-46.3); Red Blood Count 3.74 M/uL (4.70-6.10); White Blood Count 8.19 K/ul (4.8-10.8)
--- NOTE | 2022-10-03 08:59 | Gastrointestinal Consultation ---
Date of Consultation October 03, 2022 Assessment & Plan (1) Rectal bleeding: Pleasant man with rectal bleeding. His description sounds hemorrhoidal to me and the stability of his H/H support that. It is not severe enough to be diverticular hemorrhage. I guess it could be a colitis of some sort. I doubt i t is from colon cancer because presentation would be odd and he says he has had a colonoscopy in the not too distant past. Despite his limitations with getting around he would like to proceed with colonoscopy. Will plan for tomorrow. History of Present Illness Reason for Consultation: rectal bleeding Attending Physician: Jono Park DO History of Present Illness 67 year old man who had left knee replacement with subsequent infection. In the hospital 2-3 weeks ago with rectal bleeding. It was felt to be an enteritis or perhaps hemorrhoidal bleeding. He had told me he had a colonoscopy the year before in [place]. His bleeding slowed so he went home. The bleeding has not stopped. He describes, brown, soft stool with blood. On occasion he will have a bowel movement and it will be blood only. He occasionally gets abdominal cramping. He has not had a bowel movements since admission yesterday according to him. His H/H are the same as when he was in the hospital in late August. Now he says it may have been a "few years ago" since his last colonoscopy. He tells me he came to hospital because "his made him". Allergies Allergy/AdvReac Type Severity Reaction Status Date / Time acesulfame Allergy Severe SEVERE Verified 09/10/22 23:06 RASH & VOMIT naloxone Allergy Severe SEVERE Verified 09/10/22 23:06 RASH & VOMIT Sulfa (Sulfonamide Allergy Intermediate RASH / Verified 09/10/22 23:06 Antibiotics) ITCHINESS quetiapine [From Seroquel] AdvReac Intermediate Nightmare Unverified 09/10/22 23:06 amitriptyline AdvReac Unknown Unknown Unverified 09/10/22 23:06 morphine AdvReac Unknown Unknown Unverified 09/10/22 23:06 Home Medications Medication Instructions Recorded Confirmed Type gabapentin 300 mg capsule 900 mg PO BID 10/31/18 10/02/22 History alogliptin 12.5 mg tablet 12.5 mg PO DAILY 08/20/19 10/02/22 History pantoprazole 20 mg tablet,delayed 20 mg PO QAM 07/23/20 10/02/22 History release baclofen 10 mg tablet 10 mg PO BID 10/02/22 10/02/22 History levothyroxine 50 mcg capsule 50 mcg PO DAILY 10/02/22 10/02/22 History vancomycin 125 mg capsule 125 mg PO DAILY 10/02/22 10/02/22 History Patient History Medical History Acute cholecystitis due to biliary calculus chronic cholecystitis, Acute renal failure Anemia Arthralgia of multiple sites Bullous pemphigoid Chronic pain Chronic pain COPD (chronic obstructive pulmonary disease) DM type 2 (diabetes mellitus, type 2) Hepatitis C antibody positive in blood History of intravenous drug abuse Hypertension Hypoxia Memory loss MRSA infection PATIENT STATES WAS 1-2 YEARS AGO Neuropathy Obesity Rheumatoid arthritis Surgical History History of incision and drainage Family History Other Hypertension Social History Smoking Status: Former smoker Tobacco Type: Cigarettes packs per day: 2; Cigarettes Per Day: 24; Smoking End Date: 1974; Second Hand Exposure: No; Do You Dip or Chew Tobacco: No; Hx Alcohol Use: No Hx Substance Use: No Preferred Language: Pashto Communication Ability: Effective [employer] Media Specialist Required: No Beliefs That Will Affect Care: None marital status: Current Living Situation: Spouse Current Living Situation Comment: with [facility] Feels Safe at Home: Yes Safety Concerns: Feels Safe At This Time Assistive Devices: Denture - Upper, Denture - Lower and Wheelchair Review of Systems Review of Systems: All systems reviewed & are unremarkable except as noted in HPI & below Physical Exam Constitutional: WD/WN, vitals as above Neck: trachea midline, no thyromegaly Respiratory: normal respiratory effort, lungs clear to auscultation Cardiovascular: RRR, no murmur, no edema Gastrointestinal (Abdomen): normal bowel sounds, soft, nontender, no hepatospl enomegaly Results & Data Vital Signs (Past 12 Hours) Vital Signs Temp Pulse Resp BP BP Pulse Ox O2 Del Method 10/03/22 08:32 36.7 C 109 H 19 127/80 96 Nasal Cannula 10/03/22 08:05 Room Air, Nasal Cannula 10/03/22 07:59 164/65 H 10/03/22 07:37 36.6 C 99 H 16 95/56 L 97 Nasal Cannula 10/03/22 06:10 94 H 18 112/74 97 Nasal Cannula 10/02/22 23:57 103 H 18 98 Room Air 10/02/22 21:17 Room Air, Nasal Cannula 10/02/22 21:17 36.8 C 109 H 22 143/91 H 97 Room Air 10/02/22 22:46 36.6 C 119 H 18 125/72 94 Room Air 10/02/22 21:17 36.8 C 102 H 22 143/91 H 97 Room Air 10/02/22 21:07 Room Air O2 Flow Rate 10/03/22 08:32 2 10/03/22 08:05 10/03/22 07:59 10/03/22 07:37 2 10/03/22 06:10 2 10/02/22 23:57 10/02/22 21:17 2 10/02/22 21:17 10/02/22 22:46 10/02/22 21:17 10/02/22 21:07 Laboratory Results 10/03/22 10/03/22 10/02/22 Range/Units 05:34 05:34 16:26 WBC 8.19 (4.8-10.8) K/ul RBC 3.74 L (4.70-6.10) M/uL Hgb 8.5 L (14.0-18.0) g/dl Hct 28.9 L (42.0-52.0) % MCV 77.3 L (80.0-100.0) fL MCH 22.7 L (25.0-34.0) pg MCHC 29.4 L (32.0-36.0) g/dL RDW Std Deviation 41.9 (36.4-46.3) fL RDW Coeff of Fely 15.2 H (11.5-14.5) % Plt Count 323 (130-400) K/uL MPV 8.5 L (9.4-12.4) fL Immature Gran % (Auto) 0.4 % Neut % (Auto) 52.9 % Lymph % (Auto) 22.8 % Atkinson % (Auto) 11.8 % Eos % (Auto) 11.2 % Baso % (Auto) 0.9 % Neut # (Auto) 4.33 (1.40-6.50) K/uL Lymph # (Auto) 1.87 (1.2-3.4) K/uL Atkinson # (Auto) 0.97 H (0.11-0.59) K/uL Eos # (Auto) 0.92 H (0-0.50) K/uL Baso # (Auto) 0.07 (0-0.2) K/uL Immature Gran # (Auto) 0.03 (0.01-0.20) K/uL PT (9.0-12.0) Seconds INR (0.9-1.1) APTT (21.0-31.0) Seconds PTT Ratio Sodium 137 (136-145) mmol/L Potassium 3.8 (3.5-5.1) mmol/L Chloride 103 (98-107) mmol/L Carbon Dioxide 29 (21-32) mmol/L Anion Gap 5 (3-11) BUN 10 (6-23) mg/dl Creatinine 0.99 (0.6-1.4) mg/dl Est Cr Clr Drug Dosing 91.6 ml/min Est GFR ( Amer) 91.6 ml/min Est GFR (Non-Af Amer) 79.0 ml/min BUN/Creatinine Ratio 10.1 (10-20) Glucose 110 H (70-99(Fasting)) mg/dl Calcium 8.2 L (8.6-10.3) mg/dl Total Bilirubin (0.2-1.0) mg/dl AST (13-39) U/L ALT (7-52) U/L Alkaline Phosphatase (34-104) U/L Troponin I High Sens (0-20) pg/ml Total Protein (6.0-8.3) gm/dl Albumin (3.4-5.0) gm/dl Globulin (2.5-4.0) gm/dl Albumin/Globulin Ratio (0.9-2) Blood Type A Positive Antibody Screen NEGATIVE 10/02/22 10/02/22 10/02/22 Range/Units 16:16 16:16 16:16 WBC 8.19 (4.8-10.8) K/ul RBC 4.03 L (4.70-6.10) M/uL Hgb 9.3 L (14.0-18.0) g/dl Hct 31.2 L (42.0-52.0) % MCV 77.4 L (80.0-100.0) fL MCH 23.1 L (25.0-34.0) pg MCHC 29.8 L (32.0-36.0) g/dL RDW Std Deviation 42.5 (36.4-46.3) fL RDW Coeff of Fely 15.1 H (11.5-14.5) % Plt Count 370 (130-400) K/uL MPV 8.5 L (9.4-12.4) fL Immature Gran % (Auto) 0.7 % Neut % (Auto) 63.4 % Lymph % (Auto) 17.9 % Atkinson % (Auto) 7.3 % Eos % (Auto) 10.0 % Baso % (Auto) 0.7 % Neut # (Auto) 5.18 (1.40-6.50) K/uL Lymph # (Auto) 1.47 (1.2-3.4) K/uL Atkinson # (Auto) 0.60 H (0.11-0.59) K/uL Eos # (Auto) 0.82 H (0-0.50) K/uL Baso # (Auto) 0.06 (0-0.2) K/uL Immature Gran # (Auto) 0.06 (0.01-0.20) K/uL PT 11.4 (9.0-12.0) Seconds INR 1.0 (0.9-1.1) APTT 30.8 (21.0-31.0) Seconds PTT Ratio 1.1 Sodium 135 L (136-145) mmol/L Potassium 4.2 (3.5-5.1) mmol/L Chloride 101 (98-107) mmol/L Carbon Dioxide 30 (21-32) mmol/L Anion Gap 4 (3-11) BUN 10 (6-23) mg/dl Creatinine 0.90 (0.6-1.4) mg/dl Est Cr Clr Drug Dosing 102.2 ml/min Est GFR ( Amer) 102.8 ml/min Est GFR (Non-Af Amer) 88.7 ml/min BUN/Creatinine Ratio 11.1 (10-20) Glucose 132 H (70-99(Fasting)) mg/dl Calcium 8.9 (8.6-10.3) mg/dl Total Bilirubin 0.3 (0.2-1.0) mg/dl AST 16 (13-39) U/L ALT 10 (7-52) U/L Alkaline Phosphatase 278 H (34-104) U/L Troponin I High Sens 9.1 (0-20) pg/ml Total Protein 8.1 (6.0-8.3) gm/dl Albumin 3.0 L (3.4-5.0) gm/dl Globulin 5.1 H (2.5-4.0) gm/dl Albumin/Globulin Ratio 0.6 L (0.9-2) Blood Type Antibody Screen Diagnostic Findings Chest X-Ray 10/02/22 16:20 XR chest 1V portable HISTORY: 67 years-old Male sob acute shortness of breath COMPARISON: 07/23/2020 TECHNIQUE: AP view of the chest FINDINGS: Cardiac silhouette is enlarged. No pneumothorax, pleural effusion, airspace consolidation or pulmonary edema. Degenerative changes of the shoulders and spine. IMPRESSION: No acute process. ACT 112: Negative or not required by law. The above report was generated using voice recognition software. It may contain grammatical, syntax or spelling errors. Electronically signed by: Ernesto Orantes M.D. 10/02/2022 5:01 PM
[2022-10-03] MEDS: PANTOprazole 40 MG TAB PO SCH (09:02)
[2022-10-03] MEDS: BACLOFEN 10 MG TAB PO SCH ×2 (09:02→21:52)
[2022-10-03] MEDS: GABAPENTIN 300 MG CAP PO SCH ×2 (09:02→21:52)
[2022-10-03] MEDS ORDERED: ALBUT/IPRATROP 3MG/0.5MG NEB 3 ML VIAL NEB STA (09:07)
[2022-10-03] MEDS ORDERED: LACTATED RINGER'S 1,000 ML IV SCH (09:45)
[2022-10-03] MEDS: buprenorphine HCL 8 MG SUBL SL SCH ×2 (09:57→21:55)
[2022-10-03] MEDS: ALBUT/IPRATROP 3MG/0.5MG NEB 3 ML VIAL NEB SCH ×2 (10:03→15:16)
[2022-10-03] MEDS ORDERED: diazePAM 5 MG TABLET PO ONE (12:55)
[2022-10-03] MEDS ORDERED: DICLOFENAC SOD 1% GEL 100 GM TUBE EXT SCH (13:00)
--- NOTE | 2022-10-03 14:17 | Ultrasound Report ---
BILATERAL LOWER EXTREMITY VENOUS DOPPLER HISTORY: R thigh pain, b/l swelling, eval for dvt COMPARISON STUDY: Left leg venous Doppler 02/23/2016. Right leg venous Doppler 09/16/2015. FINDINGS: The left common femoral and left superficial femoral veins are patent. There is nonocclusiv e thrombus seen within the left popliteal vein. The left anterior tibial and posterior tibial veins a ppear patent. The left peroneal vein is not clearly identified. There is also nonocclusive thrombus s een within the mid to distal right superficial femoral vein and right popliteal vein. The right commo n femoral vein, anterior tibial, posterior tibial veins appear patent. The right peroneal vein are no t well visualized. IMPRESSION: Bilateral lower extremity nonocclusive DVT as described above. This is age indeterminate but could be chronic. ACT 112: Negative or not required by law. Electronically signed by: Aamir Sanders M.D. 10/03/2022 2:16 PM
[2022-10-03] MEDS ORDERED: IOVERSOL 350 MG 125mL Prefilled Syringe IV ONE (16:19)
--- NOTE | 2022-10-03 16:56 | CT Scan Report ---
CT angio chest PE protocol CT DOSE: 1015.86 mGy.cm HISTORY: 67 years-old Male with DVT, hypoxia. Acute shortness of breath with hypoxia TECHNIQUE: Multiple CTA images of the chest were obtained after the intravenous administration of 117 ml Optiray. Coronal and sagittal MIPS were obtained from the axial data set and were submitted for review. All measurements were obtained according to NASCET criteria. A dose lowering technique was u tilized adhering to the principles of ALARA. COMPARISON: Chest radiograph 10/02/2022, CTA chest 03/12/2016 FINDINGS: Study is degraded by respiratory motion artifact and upper extremity positioning. CTA: Moderate cardiomegaly. Atherosclerosis of the thoracic aorta without aneurysm or dissection. Suboptim al violation of the pulmonary arterial tree secondary to contrast bolus timing an respiratory motion artifact. No central pulmonary emboli identified. CT CHEST: Unremarkable thyroid. A single mildly enlarged nonspecific right axillary chain lymph node measures u p to 1.5 cm in short axis which previously measured 1.1 cm. Subcentimeter mediastinal and hilar lymph nodes. No pneumothorax, pleural effusion, airspace consolidation or pulmonary edema. Mild dependent subsegme ntal bibasilar atelectasis with pulmonary emphysema. Bronchial wall thickening. No suspicious nodules or masses. 6 mm fissural nodule involving the right middle lobe on image 122 is stable and benign. Cholecystectomy. No acute process of the imaged upper abdomen. Hepatosplenomegaly with hepatic steato sis. Unremarkable soft tissues. No acute fracture. Degenerative changes of the shoulders and spine. IMPRESSION: 1. Limited exam as above. No central pulmonary emboli identified. 2. Cardiomegaly without pulmonary edema. 3. Emphysema with bronchitis and mild bibasilar atelectasis. 4. Hepatosplenomegaly with hepatic steatosis. 5. Cholecystectomy. 6. Single mildly enlarged nonspecific right axillary chain lymph node. ACT 112: Negative or not required by law. The above report was generated using voice recognition software. It may contain grammatical, syntax o r spelling errors. Electronically signed by: Ernesto Orantes M.D. 10/03/2022 4:53 PM
[2022-10-03 17:10] LABS: Base Excess ABG 4.2 mEq/L (-9-1.8); HCO3 ABG 29 mmol/L (19-24); Oxygen Saturation ABG 97.1 % (90-95); PCO2 ABG 44 mmHg (35-46); PO2 ABG 84 mmHg (80-95); pH ABG 7.43 (7.35-7.45)
[2022-10-03 17:11] LABS: Allen Test Pos (Pos)
[2022-10-03] MEDS ORDERED: ALBUT/IPRATROP 3MG/0.5MG NEB 3 ML VIAL NEB PRN (17:33)
--- NOTE | 2022-10-03 18:40 | Hospitalist Progress Note ---
Date of Service October 03, 2022 Assessment & Plan (1) Acute lower GI bleeding: Plan: Subacute/ongoing lower GI bleeding. Fortunately hemodynamically stable except for a little bit of tachycardiaobviously watch this closely, Have 2 units on hold, but no indication for transfusion right now. Follow clinically, follow hemoglobin, appreciate GIs scope plans lightheadednessI suspect this was due to volume loss, while he does not meet indications for transfusion, he does have GI bleeding and has had degree of an acute blood loss anemiagiving isotonic fluids, following his hemoglobin, blood is on hold, will want to check iron stores given his microcytosis, hopefully will improve his fluid hypoxiaI suspect he has been treated COPD, does have COPD labeled on discharge, we will start with triple therapy inhalers and as needed DuoNebs, oxygen and supportive care. Given his somnolenceI did check a blood gas, fortunately he is not hypercapnic lower extremity DVTsDopplers were checked given his venous stasis but leg pain that seem to be out of proportion to what we usually see just from the skin stretching, unfortunately did show clotsradiology feels they may be chronic. Obviously this creates a serious conundrum given venous thromboembolic disease in the face of active GI bleeding with a (albeit mild) acute blood loss anemia. Even though I suspect that his respiratory symptoms were due to COPD, obviously followed with a CT of the chest thatsuboptimal but does not show PEs. This further is the case that his DVTs are probably chronic, and for now we will cautiously hold off on anticoagulation. At the time of this dictation I also put in for a D-dimerwhile I strongly suspect it to be elevated, and the very small chance that it is low, it would almost certainly show the clots to be chronic (however, given that he has active GI bleeding, and inflammatory state, and clots in some degree of acuity or chronicity, it is almost certain that his D-dimer will be elevated, but if it was low, obviously that would provide a lot of reassurance and simplify this very complicated part of his care. Discussed with nursingfor now we will hold off on anticoagulation given the GI bleeding is his known and active problem, but if he shows any new signs or symptoms consistent with PE, may need to cautiously do heparin drip without bolus, and/or consider IVC filter, although obviously the efficacy of those is fairly limited venous stasis and lower extremity wounds including a slowly healing knee incisionlocal wound care. Admission and Anticipated Discharge Date Admission Date: October 02, 2022 Subjective so several times today. Earlier this morning called to assessshe was feeling somewhat lightheadedalmost like he was floating in space. No chest pain or shortness of breath. also had some leg pain and calf pain, as well as swelling and itchingnoted it was largely chronic, but as the day progressed, it seemed more clear that at least some of his leg pain either was new and acute, or just uncontrolledI am not entirely sure that his med list matches what he is taking at home, but he did not really remember what he was takingof note he was prescribed (confirmed in the PDMP) Subutex 8 mg twice daily that had not been on his home med list. Later on revisit, he is fairly sleepy he awaken to loud voice, but is very fatigued, and nursing notes that he was more responsive earlier, and again he does awaken to voice and talk a little bit just drifts off very quickly. Review of Systems Review of Systems: All systems reviewed & are unremarkable except as noted in HPI & below Physical Exam Physical Exam: General he is awake and alert this morning, appears to be in no distress other than rubbing in his leg. Lungs are diminished with maybe a few scattered rales, no rhonchi no wheezes but markedly reduced air entry, legs show chronic venous stasis changes as before. No focal neurodeficits. Other than the venous stasis changes on his legs no rashes pallor or icterus or other skin changes. Results & Data Results & Data Vital Signs (Past 12 Hours) Vital Signs Temp Pulse Resp BP Pulse Ox O2 Del Method O2 Flow Rate 10/03/22 15:17 90 20 97 Nasal Cannula 2 10/03/22 15:02 98.2 F 86 19 117/75 97 Nasal Cannula 2 10/03/22 10:06 104 H 20 87 L Room Air 10/03/22 08:32 98.1 F 109 H 19 127/80 96 Nasal Cannula 2 10/03/22 08:05 Room Air, Nasal Cannula 10/03/22 07:59 164/65 H 10/03/22 07:37 97.9 F 99 H 16 95/56 L 97 Nasal Cannula 2 PG Care Time/CCT Total # of Minutes Spent Total Time Spent with Patient: Total time spent is greater than 50% in coordination of care (as documented) at patient's floor/unit and/or counseling patient: Coding Level of Care Code 67464 SUB INP/OBS CARE 350MIN Diagnoses Acute lower GI bleeding K92.2
[2022-10-03 19:13] LABS: D Dimer 11780 ug/L FEU (0-500)
[2022-10-03] MEDS: FLUTICASONE/VILANTEROL 200/25MCG 14 PUFFS/INHALER INH SCH (21:34)
[2022-10-04] MEDS: LEVOTHYROXINE SODIUM 50 MCG TABLET PO SCH (06:31)
--- NOTE | 2022-10-04 07:06 | Hospitalist Progress Note ---
Date of Service October 04, 2022 Assessment & Plan (1) Anemia: (2) Acute lower GI bleeding: (3) COPD (chronic obstructive pulmonary disease): (4) Lower extremity deep venous thrombosis: Plan 67 y/o male here due to lower GI bleeding for 2 days with associated lighth eaded and dizziness. Acute lower GI bleeding/Rectal bleeding - Subacute, 2 weeks of ongoing rectal bleeding. worse 2 days ago - Patient unable to finish bowel preparation for colonoscopy today, - Rescheduled for tomorrow - monitor h/h. - diet advanced to clear liquid. - To be NPO after mid-night. - IVF on hold while on clear liquid. Blood loss Anemia -lightheadedness, weakness on arrival, Hgb: 9.3 -Today hgb 9.1, stable -2 units of blood on hold, Lower extremities DVT: - Venous doppler study done due to out of proportion leg pain -Venous Doppler study: nonocclusive thrombus seen within the left popliteal vein, nonocclusive thrombus seen within the mid to distal right superficial femo ral vein and right popliteal vein - Chest CTA: no PEs - D dimer: 13660 (10/03) -Vascular consulted: AC not indicated, IVC filter not necessary at this time, bilateral thombus considered to be chronic. -Tylenol prn - Dilaudid 0.25 mg q6 hr PRN for severe pain COPD - COPD, suspected being treated before - Added tipple therapy: albuterol/ipratropium, Fluticasone/ Vilanterol, Umeclidium [place] -Denied any chronic smoking Code:Full code Dispo:Med-Surg DVT Prophylaxis: no indicated at the moment, see above PT/OT:Yes Consults:Vascular, GI Admission and Anticipated Discharge Date Admission Date: October 02, 2022 Supervising Physician Co-Signing Physician Notes Resident Physician Supervision Note: I independently interviewed and examined the patient and verified the noel history and physical, reviewed labs and image studies and agree with resident findings and care plan. Subjective 67 y/o male who is here due to lower GI active bleeding since 2 days ago. Patient was previously hospitalization due to rectal bleeding and diarrhea, was thought to be infectious. 2 days before admission, bright red bleeding started again. He soaked about 8-10 depends daily. He came with symptoms of weakness, SOB, lightheadedness. No abdominal pain, no chest pain. He complain of some leg and calf pain, welling and itching. Mostly chronic, but has been worse in this admission. Bilateral venous Doppler was done: BLT DVT was found. Seen to be chronic. 10/04 Today was evaluated found alert, awake and oriented. Patient compliant of right leg pain. Denied any SOB, bowel movements, or active bleeding. He was currently drinking the bowel preparations for the colonoscopy today. At evaluation he was using a nasal canula t 2 L/m. He refers feeling tired but denied any SOB, chest pain, tinnitus, lightheaded, dizziness, abdominal pain, or any other symptoms. Review of Systems Review of Systems: As per HPI Physical Exam Constitutional: + ill appearing (chronically); not in distress Neck: trachea midline Respiratory: normal respiratory effort, lungs clear to auscultation Auscultation: + diminished lung sounds Cardiovascular: Rate/Rhythm: regular rate and regular rhythm Vessels: posterior tibial pulses present, dorsalis pedis pulses present and radial pulses present; + abnormal peripheral pulses Extremities: normal capillary refill and + edema (BLE with venous stasis changes) Gastrointestinal (Abdomen): Inspection/Auscultation: abdomen normal to inspection and normal bowel sounds Percussion/Palpation: abdomen soft; abdomen nontender Musculoskeletal: Extremities: + chronic stasis changes R knee arthroplasty incision well healed, but chronic appearing knee swelling noted. L knee arthroplasty incision healing, with open incisional areas distal incision covered with dressing. +edema. Skin: no rashes, warm and dry Neurologic: moves all extremities and awake; no focal motor deficits and not confused (but does repeat questions and poor historian) Psychiatric: Orientation: alert, oriented to person and oriented to place Eye Contact: + poor eye contact Affect: + irritable affect Results & Data Results & Data Vital Signs (Past 12 Hours) Vital Signs Temp Pulse Pulse Resp BP Pulse Ox O2 Del Method 10/04/22 03:17 36.5 C 92 H 20 123/76 92 Nasal Cannula 10/03/22 22:10 91 H 10/03/22 19:30 Nasal Cannula 10/03/22 22:02 36.4 C L 90 18 119/75 95 Nasal Cannula 10/03/22 19:15 36.6 C 79 20 109/73 95 Nasal Cannula O2 Flow Rate 10/04/22 03:17 2 10/03/22 22:10 10/03/22 19:30 2 10/03/22 22:02 2 10/03/22 19:15 2 Resident Activity Tracking Resident Involvement: Resident Care Provided Care Provided: Adult Hospital Medicine (1) Anemia Anemia type: unspecified type Qualified Code(s): D64.9 - Anemia, unspecified (3) COPD (chronic obstructive pulmonary disease) COPD type: unspecified COPD Qualified Code(s): J44.9 - Chronic obstructive pulmonary disease, unspecified
[2022-10-04 07:09] LABS: Basophils # (auto) 0.07 K/uL (0-0.2); Basophils % (auto) 0.8 %; Eosinophils # (auto) 0.87 K/uL (0-0.50); Eosinophils % (auto) 9.7 %; Hemoglobin 9.1 g/dl (14.0-18.0); Immature Granulocytes # (auto) 0.05 K/uL (0.01-0.20); Immature Granulocytes % (auto) 0.6 %; Lymphocytes % (auto) 25.6 %; Mean Corpuscular Hemoglobin 23.2 pg (25.0-34.0); Mean Corpuscular Hgb Conc 30.3 g/dL (32.0-36.0); Mean Corpuscular Volume 76.3 fL (80.0-100.0); Mean Platelet Volume 8.2 fL (9.4-12.4); Neutrophils # (auto) 4.79 K/uL (1.40-6.50); Neutrophils % (auto) 53.3 %; Platelet Count 324 K/uL (130-400); RDW Coefficient of Variation 15.3 % (11.5-14.5); RDW Standard Deviation 42.3 fL (36.4-46.3); Red Blood Count 3.93 M/uL (4.70-6.10); White Blood Count 8.98 K/ul (4.8-10.8)
[2022-10-04 07:24] LABS: BUN Creatinine Ratio 8.1 (10-20); Calcium 8.6 mg/dl (8.6-10.3); Creatinine Clr Calc Pharmacy 105.4 ml/min; Est GFR (African American) 104.7 ml/min; Est GFR (Non-African American) 90.4 ml/min
[2022-10-04 07:43] LABS: Ferritin 35.6 ng/ml (8-388)
--- NOTE | 2022-10-04 08:50 | Gastroenterology Progress Note ---
Supervising physician's note Discussed case with Marge Vasquez NP and met with patient Unfortunately he is not adequately prepped as he is still passing brown liquid. Will need to continue prep and do procedure tomorrow pm. He is upset with this but agrees to proceed I spent a total of ten minutes in discussion on this patient. Ludivina Huynh Jr, MD, [facility] [place] Date of Service October 04, 2022 Assessment & Plan (1) Rectal bleeding: Plan: Rectal bleeding: Plan for today is colonoscopy due to rectal bleeding and anemia. Procedure and risks explained to patient which include but not limited to medication reaction, bleeding, perforation, aspiration, and missed lesions. Verbalizes understanding and is agreeable to proceed. Case reviewed with Dr. Huynh. Please refer to supervising physician addendum for further recommendations. I have spent 15 minutes of discrete time performing the activities of this visit which include but are not limited to review of the medical record, obtaining a history, physical exam, and entering information in the electronic record. Admission and Anticipated Discharge Date Admission Date: October 02, 2022 Subjective Patient sleeping but wakes easily with verbal stimuli. Patient denies nausea, vomiting, abdominal pain. States no rectal bleeding as he has not had bowel movement since admission Review of Systems Review of Systems: All systems reviewed & are unremarkable except as noted in Subjective Physical Exam Gastrointestinal (Abdomen): normal bowel sounds, soft, nontender, no hepatosplenomegaly Results & Data Vital Signs (Past 12 Hours) Vital Signs Temp Pulse Pulse Resp BP BP Pulse Ox 10/04/22 08:00 36.8 C 90 18 131/62 100 10/04/22 03:17 36.5 C 92 H 20 123/76 92 10/03/22 22:10 91 H 10/03/22 22:02 36.4 C L 90 18 119/75 95 O2 Del Method O2 Flow Rate 10/04/22 08:00 Room Air 10/04/22 03:17 Nasal Cannula 2 10/03/22 22:10 10/03/22 22:02 Nasal Cannula 2 Laboratory Results Laboratory Results - last 24 hr 10/03/22 10/03/22 10/03/22 15:47 17:03 17:58 WBC RBC Hgb Hct MCV MCH MCHC RDW Std Deviation RDW Coeff of Fely Plt Count MPV Immature Gran % (Auto) Neut % (Auto) Lymph % (Auto) [place] % (Auto) Eos % (Auto) Baso % (Auto) Neut # (Auto) Lymph # (Auto) [place] # (Auto) Eos # (Auto) Baso # (Auto) Immature Gran # (Auto) D-Dimer 75028 H* ABG pH Cancelled 7.43 ABG pCO2 Cancelled 44 ABG pO2 Cancelled 84 ABG HCO3 Cancelled 29 H ABG O2 Saturation Cancelled 97.1 H ABG Base Excess Cancelled 4.2 H Charanjit Test Cancelled Pos Barometric Pressure Cancelled Oxygen Given Cancelled 2L Sodium Potassium Chloride Carbon Dioxide Anion Gap BUN Creatinine Est Cr Clr Drug Dosing Est GFR ( Amer) Est GFR (Non-Af Amer) BUN/Creatinine Ratio Glucose Calcium Iron Transferrin Ferritin 10/04/22 10/04/22 06:51 06:51 WBC 8.98 RBC 3.93 L Hgb 9.1 L Hct 30.0 L MCV 76.3 L MCH 23.2 L MCHC 30.3 L RDW Std Deviation 42.3 RDW Coeff of Fely 15.3 H Plt Count 324 MPV 8.2 L Immature Gran % (Auto) 0.6 Neut % (Auto) 53.3 Lymph % (Auto) 25.6 [place] % (Auto) 10.0 Eos % (Auto) 9.7 Baso % (Auto) 0.8 Neut # (Auto) 4.79 Lymph # (Auto) 2.30 [place] # (Auto) 0.90 H Eos # (Auto) 0.87 H Baso # (Auto) 0.07 Immature Gran # (Auto) 0.05 D-Dimer ABG pH ABG pCO2 ABG pO2 ABG HCO3 ABG O2 Saturation ABG Base Excess Charanjit Test Barometric Pressure Oxygen Given Sodium 137 Potassium 4.0 Chloride 102 Carbon Dioxide 32 Anion Gap 3 BUN 7 Creatinine 0.86 Est Cr Clr Drug Dosing 105.4 Est GFR ( Amer) 104.7 Est GFR (Non-Af Amer) 90.4 BUN/Creatinine Ratio 8.1 L Glucose 92 Calcium 8.6 Iron 19 L Transferrin 170 L Ferritin 35.6 Diagnostic Findings Venous Doppler Study 10/03/22 12:55 BILATERAL LOWER EXTREMITY VENOUS DOPPLER HISTORY: R thigh pain, b/l swelling, eval for dvt COMPARISON STUDY: Left leg venous Doppler 02/23/2016. Right leg venous Doppler 09/16/2015. FINDINGS: The left common femoral and left superficial femoral veins are patent. There is nonocclusive thrombus seen within the left popliteal vein. The left anterior tibial and posterior tibial veins appear patent. The left peroneal vein is not clearly identified. There is also nonocclusive thrombus seen within the mid to distal right superficial femoral vein and right popliteal vein. The right common femoral vein, anterior tibial, posterior tibial veins appear patent. The right peroneal vein are not well visualized. IMPRESSION: Bilateral lower extremity nonocclusive DVT as described above. This is age indeterminate but could be chronic. ACT 112: Negative or not required by law. Electronically signed by: Aamir Sanders M.D. 10/03/2022 2:16 PM Chest CTA 10/03/22 14:32 CT angio chest PE protocol CT DOSE: 1015.86 mGy.cm HISTORY: 67 years-old Male with DVT, hypoxia. Acute shortness of breath with hypoxia TECHNIQUE: Multiple CTA images of the chest were obtained after the intravenous administration of 117 ml Optiray. Coronal and sagittal MIPS were obtained from the axial data set and were submitted for review. All measurements were obtained according to NASCET criteria. A dose lowering technique was utilized adhering to the principles of ALARA. COMPARISON: Chest radiograph 10/02/2022, CTA chest 03/12/2016 FINDINGS: Study is degraded by respiratory motion artifact and upper extremity positioning. CTA: Moderate cardiomegaly. Atherosclerosis of the thoracic aorta without aneurysm or dissection. Suboptimal violation of the pulmonary arterial tree secondary to contrast bolus timing an respiratory motion artifact. No central pulmonary emboli identified. CT CHEST: Unremarkable thyroid. A single mildly enlarged nonspecific right axillary chain lymph node measures up to 1.5 cm in short axis which previously measured 1.1 cm. Subcentimeter mediastinal and hilar lymph nodes. No pneumothorax, pleural effusion, airspace consolidation or pulmonary edema. Mild dependent subsegmental bibasilar atelectasis with pulmonary emphysema. Bronchial wall thickening. No suspicious nodules or masses. 6 mm fissural nodule involving the right middle lobe on image 122 is stable and benign. Cholecystectomy. No acute process of the imaged upper abdomen. Hepatosplenomegaly with hepatic steatosis. Unremarkable soft tissues. No acute fracture. Degenerative changes of the shoulders and spine. IMPRESSION: 1. Limited exam as above. No central pulmonary emboli identified. 2. Cardiomegaly without pulmonary edema. 3. Emphysema with bronchitis and mild bibasilar atelectasis. 4. Hepatosplenomegaly with hepatic steatosis. 5. Cholecystectomy. 6. Single mildly enlarged nonspecific right axillary chain lymph node. ACT 112: Negative or not required by law. The above report was generated using voice recognition software. It may contain grammatical, syntax or spelling errors. Electronically signed by: Ernesto Orantes M.D. 10/03/2022 4:53 PM
--- NOTE | 2022-10-04 09:13 | Electrocardiogram Report ---
Test Reason : Blood Pressure : / mmHG Vent. Rate : 100 BPM Atrial Rate : 100 BPM P-R Int : 172 ms QRS Dur : 116 ms QT Int : 376 ms P-R-T Axes : 056 002 055 degrees QTc Int : 485 ms Normal sinus rhythm Inferior infarct , age undetermined Abnormal ECG When compared with ECG of 23-JUL-2020 16:21, Inferior infarct is now Present Non-specific change in ST segment in Anterior leads Nonspecific T wave abnormality now evident in Anterior leads Confirmed by Shaun Hearn ([id number]) on 10/04/2022 9:13:21 AM Referred By: REFERRED SELF Confirmed By:Shaun Hearn
[2022-10-04] MEDS: UMECLIDINIUM BROMIDE 62.5MCG/BLISTER 7 PUFFS/INHALER INH SCH (09:34)
[2022-10-04] MEDS: PANTOprazole 40 MG TAB PO SCH (09:34)
[2022-10-04] MEDS: BACLOFEN 10 MG TAB PO SCH ×2 (09:34→22:14)
[2022-10-04] MEDS: GABAPENTIN 300 MG CAP PO SCH ×2 (09:34→22:14)
[2022-10-04] MEDS: FLUTICASONE/VILANTEROL 200/25MCG 14 PUFFS/INHALER INH SCH (09:34)
[2022-10-04] MEDS: buprenorphine HCL 8 MG SUBL SL SCH ×2 (09:35→22:14)
[2022-10-04] MEDS ORDERED: LACTATED RINGER'S 1,000 ML IV SCH (10:00)
--- NOTE | 2022-10-04 10:03 | Consultation ---
Date of Consultation October 04, 2022 Assessment & Plan (1) Lower extremity deep venous thrombosis: Imaging reviewed by Dr Delvalle. BLE DVT are chronic in appearance, AC not indicated. IVC filter not necessary at this time. PLease call if needed. History of Present Illness Reason for Consultation: DVT, GI bleed Attending Physician: Annamarie Nguyen MD History of Present Illness 67 yo m with hx of DMII, RA,COPD, DJD, HTN, neuropathy, chronic pain with rx opiate use, anemia, admitted with possible GI bleed and found to have BLE ch ronic DVT, seen in consultation today to eval for possible IVC filter insertion. Pt states he has chronic swelling in BLE, but worse in past few weeks since undergoing LLE knee arthroplasty. Admits chronic pain in BLE and back. Denies knowledge of hx of DVT, but pt is a poor historian and keeps repeating questions. Denies DONG, fever, chest pain, SOB, abd pain, N/V, claudication, nonhealing foot ulcers, other complaints. Venous doppler demonstrates chronic BLE nonocclusive DVT. Allergies Allergy/AdvReac Type Severity Reaction Status Date / Time acesulfame Allergy Severe SEVERE Verified 09/10/22 23:06 RASH & VOMIT naloxone Allergy Severe SEVERE Verified 09/10/22 23:06 RASH & VOMIT Sulfa (Sulfonamide Allergy Intermediate RASH / Verified 09/10/22 23:06 Antibiotics) ITCHINESS quetiapine [From Seroquel] AdvReac Intermediate Nightmare Unverified 09/10/22 23:06 amitriptyline AdvReac Unknown Unknown Unverified 09/10/22 23:06 morphine AdvReac Unknown Unknown Unverified 09/10/22 23:06 Home Medications Medication Instructions Recorded Confirmed Type gabapentin 300 mg capsule 900 mg PO BID 10/31/18 10/02/22 History alogliptin 12.5 mg tablet 12.5 mg PO DAILY 08/20/19 10/02/22 History pantoprazole 20 mg tablet,delayed 20 mg PO QAM 07/23/20 10/02/22 History release baclofen 10 mg tablet 10 mg PO BID 10/02/22 10/02/22 History levothyroxine 50 mcg capsule 50 mcg PO DAILY 10/02/22 10/02/22 History vancomycin 125 mg capsule 125 mg PO DAILY 08/19/23 08/19/23 History Patient History Medical History Acute cholecystitis due to biliary calculus chronic cholecystitis, Acute renal failure Anemia Arthralgia of multiple sites Bullous pemphigoid Chronic pain Chronic pain COPD (chronic obstructive pulmonary disease) DM type 2 (diabetes mellitus, type 2) Hepatitis C antibody positive in blood History of intravenous drug abuse Hypertension Hypoxia Memory loss MRSA infection PATIENT STATES WAS 1-2 YEARS AGO Neuropathy Obesity Rheumatoid arthritis Surgical History History of incision and drainage Family History Other Hypertension Social History Smoking Status: Former smoker Tobacco Type: Cigarettes packs per day: 2; Cigarettes Per Day: 24; Smoking End Date: 1974; Second Hand Exposure: No; Do You Dip or Chew Tobacco: No; Hx Alcohol Use: No Hx Substance Use: No Preferred Language: Brazilian Communication Ability: Effective Car Tracer Required: No Beliefs That Will Affect Care: None marital status: Current Living Situation: Spouse Current Living Situation Comment: with [facility] Feels Safe at Home: Yes Safety Concerns: Feels Safe At This Time Assistive Devices: Denture - Upper, Denture - Lower and Wheelchair Review of Systems Review of Systems: All systems reviewed & are unremarkable except as noted in HPI & below Physical Exam Constitutional: + ill appearing (chronically); not in distress Neck: trachea midline Respiratory: normal respiratory effort, lungs clear to auscultation Auscultation: + diminished lung sounds Cardiovascular: Rate/Rhythm: regular rate and regular rhythm Vessels: posterior tibial pulses present, dorsalis pedis pulses present and radial pulses present; + abnormal peripheral pulses Extremities: normal capillary refill and + edema (BLE with venous stasis changes) Gastrointestinal (Abdomen): Inspection/Auscultation: abdomen normal to inspection and normal bowel sounds Percussion/Palpation: abdomen soft; abdomen nontender Musculoskeletal: Extremities: + chronic stasis changes R knee arthroplasty incision well healed, but chronic appearing knee swelling noted. L knee arthroplasty incision healing, with open incisional areas distal incision covered with dressing. +edema. Skin: no rashes, warm and dry Neurologic: moves all extremities and awake; no focal motor deficits and not confused (but does repeat questions and poor historian) Psychiatric: Orientation: alert, oriented to person and oriented to place Eye Contact: + poor eye contact Affect: + irritable affect Results & Data Vital Signs (Past 12 Hours) Vital Signs Temp Pulse Pulse Resp BP BP Pulse Ox 10/04/22 09:20 94 H 10/04/22 08:00 36.8 C 90 18 131/62 100 10/04/22 03:17 36.5 C 92 H 20 123/76 92 10/03/22 22:10 91 H 10/03/22 22:02 36.4 C L 90 18 119/75 95 O2 Del Method O2 Flow Rate 10/04/22 09:20 10/04/22 08:00 Room Air 10/04/22 03:17 Nasal Cannula 2 10/03/22 22:10 10/03/22 22:02 Nasal Cannula 2
[2022-10-04] MEDS: HYDROmorphone INJ 0.5 MG/0.5 ML SYR IV PRN ×2 (11:30→22:15)
[2022-10-04] MEDS ORDERED: POLYETHYLENE (MIRALAX) 17 GM PACK PO SCH (18:00)
[2022-10-04 19:21] LABS: Hematocrit (blood only) 28.8 % (42.0-52.0); Hemoglobin 8.7 g/dl (14.0-18.0)
[2022-10-05 00:29] LABS: Hemoglobin 8.5 g/dl (14.0-18.0)
[2022-10-05] MEDS: LEVOTHYROXINE SODIUM 50 MCG TABLET PO SCH (05:53)
[2022-10-05] MEDS: LACTATED RINGER'S 1,000 ML IV SCH ×3 (05:54→17:03)
--- NOTE | 2022-10-05 06:32 | Hospitalist Progress Note ---
Date of Service October 05, 2022 Assessment & Plan (1) Anemia: (2) Acute lower GI bleeding: (3) COPD (chronic obstructive pulmonary disease): (4) Lower extremity deep venous thrombosis: Plan 67 y/o male here due to lower GI bleeding for 2 days with associated light headed and dizziness. Acute lower GI bleeding/ Rectal bleeding - Subacute, 2 weeks of ongoing rectal bleeding. worse 2 days ago - GI on case, Colonoscopy reschedule for today. -Will advance to diet after colonoscopy and hold IVF Anemia -lightheadedness, weakness on arrival, Hgb: 9.3 -H/h: 8.7/ 28.8 - Today denied active bleeding, lightheadedness or weakness -2 units of blood on hold Lower extremities DVT: - Venous doppler study done due to out of proportion leg pain -Venous Doppler study: nonocclusive thrombus seen within the left popliteal vein, nonocclusive thrombus seen within the mid to distal right superficial femoral vein and right popliteal vein - Chest CTA: no PEs - D dimer: 88122 (10/03) -Vascular consulted: AC not indicated, IVC filter not necessary at this time, bilateral thrombus considered to be chronic. -Tylenol prn - Diluid 0.25 mg q6 hr PRN for severe pain COPD/ hypoxia - COPD, suspected being treated before - tipple therapy: albuterol/ipratropium, Fluticasone/ Vilanterol, Umeclidium Dalhart -Denied any chronic smoking Code:Full code Dispo:Med-Surg DVT Prophylaxis: no indicated at the moment, see above PT/OT:Yes Consults:Vascular, GI Admission and Anticipated Discharge Date Admission Date: October 02, 2022 Supervising Physician Co-Signing Physician Notes Resident Physician Supervision Note: I independently interviewed and examined the patient and verified the noel history and physical, reviewed labs and image studies and agree with resident findings and care plan. Subjective 67 y/o male who is here due to lower GI active bleeding since 2 days ago. Patient was previously hospitalization due to rectal bleeding and diarrhea, was thought to be infectious. 2 days before admission, bright red bleeding started again. He soaked about 8-10 depends daily. He came with symptoms of weakness, SOB, lightheadedness. No abdominal pain, no chest pain. He complain of some leg and calf pain, welling and itching. Mostly chronic, but has been worse in this admission. Bilateral venous Doppler was done: BLT DVT was found. Seen to be chronic. 10/04 Today was evaluated found alert, awake and oriented. Patient compliant of right leg pain. Denied any SOB, bowel movements, or active bleeding. He was currently drinking the bowel preparations for the colonoscopy today. At evaluation he was using a nasal canula t 2 L/m. He refers feeling tired but denied any SOB, chest pain, tinnitus, lightheaded, dizziness, abdominal pain, or any other symptoms. 10/05 Patient today found AAO, very irritated this morning. He was finishing his bowel prep. he denied bleeding. Currently on nasal cannula 2L/min satu at 95%. Denied SOB, chest pain,denied abdominal pain, nausea or vomiting. Colonosocpy schedule for this afternoon. Review of Systems Review of Systems: As per HPI Physical Exam Constitutional: + ill appearing (chronically); not in distress Neck: trachea midline Respiratory: normal respiratory effort, lungs clear to auscultation Auscultation: + diminished lung sounds Cardiovascular: Rate/Rhythm: regular rate and regular rhythm Vessels: posterior tibial pulses present, dorsalis pedis pulses present and radial pulses present; + abnormal peripheral pulses Extremities: normal capillary refill and + edema (BLE with venous stasis changes) Gastrointestinal (Abdomen): Inspection/Auscultation: abdomen normal to inspection and normal bowel sounds Percussion/Palpation: abdomen soft; abdomen nontender Musculoskeletal: Extremities: + chronic stasis changes Skin: no rashes, warm and dry Neurologic: moves all extremities and awake; no focal motor deficits and not confused (but does repeat questions and poor historian) Psychiatric: Orientation: alert, oriented to person and oriented to place Eye Contact: + poor eye contact Affect: + irritable affect Results & Data Results & Data Vital Signs (Past 12 Hours) Vital Signs Temp Pulse Pulse Resp BP Pulse Ox O2 Del Method 10/05/22 03:50 36.8 C 99 H 18 147/78 H 92 Nasal Cannula 10/04/22 22:30 100 H 10/04/22 22:44 37.3 C 92 H 18 117/70 93 Nasal Cannula 10/04/22 22:36 Nasal Cannula 10/04/22 19:31 103 H 20 92 Nasal Cannula 10/04/22 19:07 36.7 C 103 H 19 125/80 83 L Room Air O2 Flow Rate 10/05/22 03:50 2 10/04/22 22:30 10/04/22 22:44 2 10/04/22 22:36 2 10/04/22 19:31 2 10/04/22 19:07 Resident Activity Tracking Resident Involvement: Resident Care Provided Care Provided: Adult ED (1) Anemia Anemia type: unspecified type Qualified Code(s): D64.9 - Anemia, unspecified (3) COPD (chronic obstructive pulmonary disease) COPD type: unspecified COPD Qualified Code(s): J44.9 - Chronic obstructive pulmonary disease, unspecified
--- NOTE | 2022-10-05 08:01 | Gastroenterology Progress Note ---
Supervising physician's note Discussed with Marge Vasquez NP and reviewed note Patient had colonoscopy today that shows impressive colitis--some features consistent with bad c. diff colitis but others consistent with UC. Would favor UC but will await biopsies to be certain. Ludivina Huynh Jr, MD, [facility] [place] Date of Service October 05, 2022 Assessment & Plan (1) Rectal bleeding: Plan: Rectal bleeding: Plan for today is colonoscopy due to rectal bleeding and anemia as patient was not adequately prepped yesterday for procedure. Procedure and risks explained to patient which include but not limited to medication reaction, bleeding, perforation, aspiration, and missed lesions. Verbalizes understanding and is agreeable to proceed. Case reviewed with Dr. Huynh. Please refer to supervising physician addendum for further recommendations. I have spent 15 minutes of discrete time performing the activities of this visit which include but are not limited to review of the medical record, obtaining a history, physical exam, and entering information in the electronic record. Admission and Anticipated Discharge Date Admission Date: October 02, 2022 Subjective Patient awake, alert, and oriented this morning. He is very irritable and upset again this morning. Frustrated that procedure was delayed and isn't until this afternoon. States he is hungry. No stool output this morning. Nursing reports that last stool output on previous shift was clear liquid. Patient denies abdominal pain, nausea, or vomiting. Review of Systems Review of Systems: All systems reviewed & are unremarkable except as noted in Subjective Physical Exam Gastrointestinal (Abdomen): normal bowel sounds, soft, nontender, no hepatosplenomegaly Results & Data Vital Signs (Past 12 Hours) Vital Signs Temp Pulse Pulse Resp BP BP Pulse Ox 10/05/22 07:08 36.8 C 91 H 19 102/61 95 10/05/22 03:50 36.8 C 99 H 18 147/78 H 92 10/04/22 22:30 100 H 10/04/22 22:44 37.3 C 92 H 18 117/70 93 10/04/22 22:36 O2 Del Method O2 Flow Rate 10/05/22 07:08 Nasal Cannula 2 10/05/22 03:50 Nasal Cannula 2 10/04/22 22:30 10/04/22 22:44 Nasal Cannula 2 10/04/22 22:36 Nasal Cannula 2 Laboratory Results Laboratory Results - last 24 hr 0810/05/22 10/05/22 18:51 00:17 07:49 WBC 6.62 RBC 3.78 L Hgb 8.7 L 8.5 L 8.7 L Hct 28.8 L 28.0 L 28.4 L MCV 75.1 L MCH 23.0 L MCHC 30.6 L RDW Std Deviation 40.7 RDW Coeff of Efly 15.0 H Plt Count 320 MPV 8.2 L Immature Gran % (Auto) 0.5 Neut % (Auto) 52.8 Lymph % (Auto) 22.5 [place] % (Auto) 13.1 Eos % (Auto) 10.3 Baso % (Auto) 0.8 Neut # (Auto) 3.50 Lymph # (Auto) 1.49 [place] # (Auto) 0.87 H Eos # (Auto) 0.68 H Baso # (Auto) 0.05 Immature Gran # (Auto) 0.03 Sodium Potassium Chloride Carbon Dioxide Anion Gap BUN Creatinine Est Cr Clr Drug Dosing Est GFR ( Amer) Est GFR (Non-Af Amer) BUN/Creatinine Ratio Glucose Calcium Total Bilirubin AST ALT Alkaline Phosphatase Total Protein Albumin Globulin Albumin/Globulin Ratio 10/05/22 07:49 WBC RBC Hgb Hct MCV MCH MCHC RDW Std Deviation RDW Coeff of Fely Plt Count MPV Immature Gran % (Auto) Neut % (Auto) Lymph % (Auto) [place] % (Auto) Eos % (Auto) Baso % (Auto) Neut # (Auto) Lymph # (Auto) [place] # (Auto) Eos # (Auto) Baso # (Auto) Immature Gran # (Auto) Sodium Pending Potassium Pending Chloride Pending Carbon Dioxide Pending Anion Gap Pending BUN Pending Creatinine Pending Est Cr Clr Drug Dosing Pending Est GFR ( Amer) Pending Est GFR (Non-Af Amer) Pending BUN/Creatinine Ratio Pending Glucose Pending Calcium Pending Total Bilirubin Pending AST Pending ALT Pending Alkaline Phosphatase Pending Total Protein Pending Albumin Pending Globulin Pending Albumin/Globulin Ratio Pending
[2022-10-05] MEDS: BACLOFEN 10 MG TAB PO SCH (08:06)
[2022-10-05] MEDS: FLUTICASONE/VILANTEROL 200/25MCG 14 PUFFS/INHALER INH SCH (08:06)
[2022-10-05] MEDS: UMECLIDINIUM BROMIDE 62.5MCG/BLISTER 7 PUFFS/INHALER INH SCH (08:06)
[2022-10-05] MEDS: buprenorphine HCL 8 MG SUBL SL SCH (08:06)
[2022-10-05] MEDS: GABAPENTIN 300 MG CAP PO SCH (08:07)
[2022-10-05] MEDS: PANTOprazole 40 MG TAB PO SCH (08:07)
[2022-10-05 08:09] LABS: Basophils # (auto) 0.05 K/uL (0-0.2); Basophils % (auto) 0.8 %; Eosinophils # (auto) 0.68 K/uL (0-0.50); Eosinophils % (auto) 10.3 %; Hematocrit (blood only) 28.4 % (42.0-52.0); Hemoglobin 8.7 g/dl (14.0-18.0); Immature Granulocytes # (auto) 0.03 K/uL (0.01-0.20); Immature Granulocytes % (auto) 0.5 %; Lymphocytes # (auto) 1.49 K/uL (1.2-3.4); Lymphocytes % (auto) 22.5 %; Mean Corpuscular Hgb Conc 30.6 g/dL (32.0-36.0); Mean Corpuscular Volume 75.1 fL (80.0-100.0); Mean Platelet Volume 8.2 fL (9.4-12.4); Monocytes # (auto) 0.87 K/uL (0.11-0.59); Monocytes % (auto) 13.1 %; Neutrophils % (auto) 52.8 %; Platelet Count 320 K/uL (130-400); RDW Standard Deviation 40.7 fL (36.4-46.3); Red Blood Count 3.78 M/uL (4.70-6.10); White Blood Count 6.62 K/ul (4.8-10.8)
[2022-10-05 08:39] LABS: Albumin Globulin Ratio 0.6 (0.9-2); Albumin Level 2.6 gm/dl (3.4-5.0); Bilirubin,Total 0.4 mg/dl (0.2-1.0); Calcium 8.3 mg/dl (8.6-10.3); Creatinine Clr Calc Pharmacy 107.5 ml/min; Est GFR (African American) 104.7 ml/min; Est GFR (Non-African American) 90.4 ml/min; Globulin 4.3 gm/dl (2.5-4.0); Potassium 3.8 mmol/L (3.5-5.1); Total Protein 6.9 gm/dl (6.0-8.3)
--- NOTE | 2022-10-05 12:53 | Anesthesiology Consultation ---
Date of Service October 05, 2022 Assessment & Plan Chart Review Chart Review: Acceptable Risk for Surgery, Patient NOT seen in Pre Admission Testing and order entry initiated Consults Requested none History Surgery Operation Date: 10/05/22 16:30 Proposed Procedures p Colonoscopy Dr. Lino Huynh Jr, MD Height/Weight Height: 5 ft 11 in Weight: 112 kg Allergies Allergy/AdvReac Type Severity Reaction Status Date / Time acesulfame Allergy Severe SEVERE Verified 09/10/22 23:06 RASH & VOMIT naloxone Allergy Severe SEVERE Verified 09/10/22 23:06 RASH & VOMIT Sulfa (Sulfonamide Allergy Intermediate RASH / Verified 09/10/22 23:06 Antibiotics) ITCHINESS quetiapine [From Seroquel] AdvReac Intermediate Nightmare Unverified 09/10/22 23:06 amitriptyline AdvReac Unknown Unknown Unverified 09/10/22 23:06 morphine AdvReac Unknown Unknown Unverified 09/10/22 23:06 Medications Home Medications Medication Instructions Recorded Confirmed Last Taken gabapentin 300 mg capsule 900 mg PO BID 10/31/18 10/02/22 10/02/22 alogliptin 12.5 mg tablet 12.5 mg PO DAILY 08/20/19 10/02/22 10/02/22 pantoprazole 20 mg tablet,delayed 20 mg PO QAM 07/23/20 10/02/22 10/02/22 release baclofen 10 mg tablet 10 mg PO BID 10/02/22 10/02/22 10/02/22 levothyroxine 50 mcg capsule 50 mcg PO DAILY 10/02/22 10/02/22 10/02/22 vancomycin 125 mg capsule 125 mg PO DAILY 10/02/22 10/02/22 10/02/22 Active Medications Generic Name Dose Route Start Last Admin Trade Name Freq PRN Reason Stop Dose Admin Acetaminophen 650 mg 10/02/22 21:17 10/03/22 06:03 Acetaminophen 325 Mg Tab PO 11/01/22 21:16 650 mg Q4H PRN Administration pain/fever Baclofen 10 mg 10/02/22 21:17 10/05/22 08:06 Baclofen 10 Mg Tab PO 11/01/22 21:16 10 mg BID GIACOMO Administration Buprenorphine HCl 8 mg 10/03/22 09:15 10/05/22 08:06 Buprenorphine Hcl 8 Mg Subl SL 11/02/22 09:14 8 mg BID GIACOMO Administration Fluticasone/Vilanterol 1 puffs 10/03/22 18:00 10/05/22 08:06 Fluticasone/Vilanterol 200/25mcg 14 Puffs/Inhaler INH 11/02/22 17:59 1 puffs DAILY GIACOMO Administration Gabapentin 900 mg 10/02/22 21:17 10/05/22 08:07 Gabapentin 300 Mg Cap PO 11/01/22 21:16 900 mg BID GIACOMO Administration Hydromorphone HCl 0.25 mg 10/04/22 11:05 10/04/22 22:15 Hydromorphone Inj 0.5 Mg/0.5 Ml Syr IV 10/18/22 11:04 0.25 mg Q6H PRN Administration Severe Pain (Scale 7, 8, 9,10) Lactated Ringer's 1,000 mls @ 125 mls/hr 10/05/22 00:00 10/05/22 08:07 Lr IV 11/04/22 00:00 125 mls/hr .Q8H GIACOMO Administration Levothyroxine Sodium 50 mcg 10/03/22 06:30 10/05/22 05:53 Levothyroxine Sodium 50 Mcg Tablet PO 11/02/22 06:29 50 mcg DAILYBB GIACOMO Administration Pantoprazole Sodium 40 mg 10/03/22 09:00 10/05/22 08:07 Pantoprazole 40 Mg Tab PO 11/02/22 08:59 40 mg QAM GIACOMO Administration Protocol Umeclidinium [place] 1 puffs 10/04/22 09:00 10/05/22 08:06 Umeclidinium [place] 62.5mcg/Blister 7 Puffs/Inhaler INH 11/03/22 08:59 1 puffs QAM GIACOMO Administration Past Medical History Medical History Acute cholecystitis due to biliary calculus chronic cholecystitis, Acute renal failure Anemia Arthralgia of multiple sites Bullous pemphigoid Chronic pain Chronic pain COPD (chronic obstructive pulmonary disease) DM type 2 (diabetes mellitus, type 2) Hepatitis C antibody positive in blood History of intravenous drug abuse Hypertension Hypoxia Memory loss MRSA infection PATIENT STATES WAS 1-2 YEARS AGO Neuropathy Obesity Rheumatoid arthritis Past Family History Family History Other Hypertension Past Surgical History Surgical History History of incision and drainage Social History Smoking Status: Former smoker tobacco type: cigarettes Smoking cigarettes per day: 24 Do You Dip or Chew Tobacco: No Smoking End Date: 1974 Hx Alcohol Use: No Hx Substance Use: No substance use type: does not use Physical Exam Vital Signs Last Vital Signs Temp 36.6 C 10/05/22 12:00 Pulse 97 H 10/05/22 12:00 Resp 20 10/05/22 12:00 BP 128/81 10/05/22 12:00 Pulse Ox 93 10/05/22 12:00 O2 Del Method Nasal Cannula 10/05/22 12:00 O2 Flow Rate 2 10/05/22 07:08 Testing Laboratory Results 10/05/22 07:49 10/05/22 07:49 PT 11.4 Seconds (9.0-12.0) 10/02/22 16:16 INR 1.0 (0.9-1.1) 10/02/22 16:16 APTT 30.8 Seconds (21.0-31.0) 10/02/22 16:16 Blood Type A Positive 10/02/22 16:26 Antibody Screen NEGATIVE 10/02/22 16:26 Electrocardiogram Date: 10/02/22 Test Reason : Blood Pressure : / mmHG Vent. Rate : 100 BPM Atrial Rate : 100 BPM P-R Int : 172 ms QRS Dur : 116 ms QT Int : 376 ms P-R-T Axes : 056 002 055 degrees QTc Int : 485 ms Normal sinus rhythm Inferior infarct , age undetermined Abnormal ECG When compared with ECG of 23-JUL-2020 16:21, Inferior infarct is now Present Non-specific change in ST segment in Anterior leads Nonspecific T wave abnormality now evident in Anterior leads Confirmed by Shaun Hearn ([id number]) on 10/04/2022 9:13:21 AM Chest X-Ray Date: 10/02/22 XR chest 1V portable HISTORY: 67 years-old Male sob acute shortness of breath COMPARISON: 07/23/2020 TECHNIQUE: AP view of the chest FINDINGS: Cardiac silhouette is enlarged. No pneumothorax, pleural effusion, airspace consolidation or pulmonary edema. Degenerative changes of the shoulders and spine. IMPRESSION: No acute process. Echocardiogram Date: 07/28/20 EF: 55-60 LV Function: normal RWMA: + none Other Findings: + diastolic dysfunction (grade II) Valvular Disease: + no significant valvular disease RV and LA mildly dilated
[2022-10-05] MEDS ORDERED: LIDOCAINE 2% 2 ML VIAL/AMP(20MG/ML) INFIL ONE (14:49)
[2022-10-05] MEDS ORDERED: PROPOFOL IV EMULSION 10 MG/ML 20 ML VIAL IV ONE (14:49)
--- NOTE | 2022-10-05 15:43 | History & Physical Report ---
Date of Service October 05, 2022 Assessment & Plan (1) Rectal bleeding: Plan: Gentleman who needs colonoscopy. Procedure and risks discussed. He agrees Admission and Anticipated Discharge Date Admission Date: October 02, 2022 History of Present Illness Chief Complaint: rectal bleeding Primary Care Provider: Doc Morejon MD 67 year old man with rectal bleeding. He is here for colonoscopy Allergies Allergy/AdvReac Type Severity Reaction Status Date / Time acesulfame Allergy Severe SEVERE Verified 10/05/22 15:04 RASH & VOMIT naloxone Allergy Severe SEVERE Verified 10/05/22 15:04 RASH & VOMIT Sulfa (Sulfonamide Allergy Intermediate RASH / Verified 10/05/22 15:04 Antibiotics) ITCHINESS quetiapine [From Seroquel] AdvReac Intermediate Nightmare Verified 10/05/22 15:04 amitriptyline AdvReac Unknown Unknown Verified 10/05/22 15:04 morphine AdvReac Unknown Unknown Verified 10/05/22 15:04 Home Medications Medication Instructions Recorded Confirmed Type gabapentin 300 mg capsule 900 mg PO BID 10/31/18 10/02/22 History alogliptin 12.5 mg tablet 12.5 mg PO DAILY 08/20/19 10/02/22 History pantoprazole 20 mg tablet,delayed 20 mg PO QAM 07/23/20 10/02/22 History release baclofen 10 mg tablet 10 mg PO BID 10/02/22 10/02/22 History levothyroxine 50 mcg capsule 50 mcg PO DAILY 10/02/22 10/02/22 History vancomycin 125 mg capsule 125 mg PO DAILY 10/02/22 10/02/22 History Past Med/Surg History Medical History Acute cholecystitis due to biliary calculus chronic cholecystitis, Acute renal failure Anemia Arthralgia of multiple sites Bullous pemphigoid Chronic pain Chronic pain COPD (chronic obstructive pulmonary disease) DM type 2 (diabetes mellitus, type 2) Hepatitis C antibody positive in blood History of intravenous drug abuse Hypertension Hypoxia Memory loss MRSA infection PATIENT STATES WAS 1-2 YEARS AGO Neuropathy Obesity Rheumatoid arthritis Surgical History History of incision and drainage Family History Other Hypertension Social History Smoking Status: Former smoker Tobacco Type: Cigarettes packs per day: 2; Cigarettes Per Day: 24; Smoking End Date: 1974; Second Hand Exposure: No; Do You Dip or Chew Tobacco: No; Hx Alcohol Use: No Hx Substance Use: No Preferred Language: Nepali Communication Ability: Effective Ip Attorney Required: No Beliefs That Will Affect Care: None marital status: Current Living Situation: Spouse Current Living Situation Comment: with [place] Feels Safe at Home: Yes Safety Concerns: Feels Safe At This Time Assistive Devices: Oxygen - Continuous ASA Classification ASA ASA3 Results & Data Vital Signs (Past 12 Hours) Vital Signs Temp Pulse Pulse Resp BP BP Pulse Ox 10/05/22 15:19 88 10/05/22 15:05 36.7 C 91 H 18 115/78 94 10/05/22 12:00 36.6 C 97 H 20 128/81 93 10/05/22 07:00 93 H 10/05/22 07:08 36.8 C 91 H 19 102/61 95 10/05/22 03:50 36.8 C 99 H 18 147/78 H 92 O2 Del Method O2 Flow Rate 10/05/22 15:19 10/05/22 15:05 Nasal Cannula 2 10/05/22 12:00 Nasal Cannula 10/05/22 07:00 10/05/22 07:08 Nasal Cannula 2 10/05/22 03:50 Nasal Cannula 2 Code Status & VTE Plan VTE Prophylaxis Plan VTE Prophylaxis will be ordered: No Reason for no VTE drug order: Contraindicated
[2022-10-05] MEDS ORDERED: PHENYLEPHRINE 100MCG/ML 5ML SYR ONE (15:56)
--- NOTE | 2022-10-05 16:01 | GI REPORT ---
Patient Name: Zan Reed Procedure Date: 10/05/2022 2:54 PM Date of : 1955 Admit Type: Inpatient Age: 67 Gender: Male Attending MD: Ludivina Huynh MD, Procedure: Colonoscopy Providers: Ludivina Huynh MD Referring MD: Referred Self Indications: Rectal bleeding Medicines: Propofol per Anesthesia Complications: No immediate complications. Estimated Blood Loss: Estimated blood loss: none. Procedure: Pre-Anesthesia Assessment: - Prior to the procedure, a History and Physical was performed, and patient medications and allergies were reviewed. The patient's tolerance of previous anesthesia was also reviewed. The risks and benefits of the procedure and the sedation options and risks were discussed with the patient. All questions were answered, and informed consent was obtained. Prior Anticoagulants: The patient has taken no anticoagulant or antiplatelet agents. ASA Grade Assessment: III - A patient with severe systemic disease. After reviewing the risks and benefits, the patient was deemed in satisfactory condition to undergo the procedure. After I obtained informed consent, the scope was passed under direct vision. Throughout the procedure, the patient's blood pressure, pulse, and oxygen saturations were monitored continuously. The Colonoscope was introduced through the anus and advanced to the cecum, identified by appendiceal orifice and ileocecal valve. The colonoscopy was performed without difficulty. The patient tolerated the procedure well. The quality of the bowel preparation was evaluated using the BBPS ([place] Bowel Preparation Scale) with scores of: Right Colon = 2 (minor amount of residual staining, small fragments of stool and/or opaque liquid, but mucosa seen well), Transverse Colon = 2 (minor amount of residual staining, small fragments of stool and/or opaque liquid, but mucosa seen well) and Left Colon = 2 (minor amount of residual staining, small fragments of stool and/or opaque liquid, but mucosa seen well). The total BBPS score equals 6. The quality of the bowel preparation was fair. The ileocecal valve, appendiceal orifice, and rectum were photographed. Findings: A diffuse area of moderately erythematous, friable (with contact bleeding), granular and inflamed mucosa was found in the rectum, in the recto-sigmoid colon, in the sigmoid colon, in the descending colon, at the splenic flexure and in the transverse colon. Biopsies were taken with a cold forceps for histology. The ascending colon and cecum appeared normal. Impression: - Preparation of the colon was fair. - Erythematous, friable (with contact bleeding), granular and inflamed mucosa in the rectum, in the recto-sigmoid colon, in the sigmoid colon, in the descending colon, at the splenic flexure and in the transverse colon. Biopsied. - The ascending colon and cecum are normal. Recommendation: - Patient has a contact number available for emergencies. The signs and symptoms of potential delayed complications were discussed with the patient. Return to normal activities tomorrow. Written discharge instructions were provided to the patient. - Resume previous diet. - Continue present medications. - Await pathology results. Ludivina Huynh MD 10/05/2022 4:01:27 PM Note Initiated On: 10/05/2022 2:54 PM Number of Addenda: 0 I attest to the content of the Intraoperative Record and orders documented therein, exceptions below {[id number]}
--- NOTE | 2022-10-05 18:33 | Discharge Summary ---
Date of Service October 05, 2022 Admission HPI Per Admitting Provider Pleasant 67-year-old male here 2 weeks ago with lower GI bleedingwas stable for discharge home, bleeding was slowinghe notes it never really stopped over the last 2 weeks, he has always had some degree of bright red blood per rectumbut then the last day or so is increased a lot and it got him concerned and he came back to the hospital. No significant abdominal pain, no other complaints. Fortunately does not feel very weak lightheaded or dizzy. Feels he probably needs a colonoscopy. Admission Exam Per Admitting Provider In general he is awake alert oriented pleasant no distress. He is sitting up in bed. HEENT normocephalic atraumatic mucous membranes moist. Breathing unlabored no accessory muscle use good effort. Skin shows venous stasis changes left knee incision wound that is slowly healing by secondary intent with no surrounding erythema and only thin amounts of inflammatory appearing exudatehe notes this is better than it was, he notes his surgery was about a month ago, he also has a few other areas of venous stasis related skin breakdown without surrounding erythema. Neuro shows cranial nerves II through XII are grossly intact gross motor and sensory are intact. Principal Diagnosis Lower GI bleeding Discharge Exam Constitutional WD/WN, vitals as above Respiratory normal respiratory effort, lungs clear to auscultation +diminished lung sounds Cardiovascular Rate/Rhythm: regular rate and regular rhythm Vessels: posterior tibial pulses present, dorsalis pedis pulses present and radial pulses present; + abnormal peripheral pulses Extremities: normal capillary refill and + edema (BLE with venous stasis changes) Gastrointestinal (Abdomen) normal bowel sounds, soft, nontender, no hepatosplenomegaly Musculoskeletal Extremities: + chronic stasis changes R knee arthroplasty incision well healed, but chronic appearing knee swelling noted. L knee arthroplasty incision healing, with open incisional areas distal incision covered with dressing. +edema. Skin no rashes, warm and dry Neurologic PERRL, EOMI, accommodation nl, no face palsy, no dysarthria Psychiatric A+Ox3, euthymic affect Discharge Data Allergies Allergy/AdvReac Type Severity Reaction Status Date / Time acesulfame Allergy Severe SEVERE Verified 10/05/22 15:04 RASH & VOMIT naloxone Allergy Severe SEVERE Verified 10/05/22 15:04 RASH & VOMIT Sulfa (Sulfonamide Allergy Intermediate RASH / Verified 10/05/22 15:04 Antibiotics) ITCHINESS quetiapine [From Seroquel] AdvReac Intermediate Nightmare Verified 10/05/22 15:04 amitriptyline AdvReac Unknown Unknown Verified 10/05/22 15:04 morphine AdvReac Unknown Unknown Verified 10/05/22 15:04 Consultations 10/02/22 18:05 ED Decision to Admit Stat 10/02/22 21:17 Consult Gastroenterology Routine 10/03/22 19:23 Consult Vascular Surgery Routine Procedures Performed Operation Date: 10/05/22 16:30 Actual Procedures p Colonoscopy Biopsy Cytology - Ludivina Huynh Jr, MD Ordered Studies Labs 10/02/22 10/02/22 10/02/22 16:16 16:16 16:16 WBC 8.19 RBC 4.03 L Hgb 9.3 L Hct 31.2 L MCV 77.4 L MCH 23.1 L MCHC 29.8 L RDW Std Deviation 42.5 RDW Coeff of Fely 15.1 H Plt Count 370 MPV 8.5 L Immature Gran % (Auto) 0.7 Neut % (Auto) 63.4 Lymph % (Auto) 17.9 [place] % (Auto) 7.3 Eos % (Auto) 10.0 Baso % (Auto) 0.7 Neut # (Auto) 5.18 Lymph # (Auto) 1.47 [place] # (Auto) 0.60 H Eos # (Auto) 0.82 H Baso # (Auto) 0.06 Immature Gran # (Auto) 0.06 PT 11.4 INR 1.0 APTT 30.8 PTT Ratio 1.1 D-Dimer ABG pH ABG pCO2 ABG pO2 ABG HCO3 ABG O2 Saturation ABG Base Excess Charanjit Test Barometric Pressure Oxygen Given Sodium 135 L Potassium 4.2 Chloride 101 Carbon Dioxide 30 Anion Gap 4 BUN 10 Creatinine 0.90 Est Cr Clr Drug Dosing 102.2 Est GFR ( Amer) 102.8 Est GFR (Non-Af Amer) 88.7 BUN/Creatinine Ratio 11.1 Glucose 132 H Calcium 8.9 Iron Transferrin Ferritin Total Bilirubin 0.3 AST 16 ALT 10 Alkaline Phosphatase 278 H Troponin I High Sens 9.1 Total Protein 8.1 Albumin 3.0 L Globulin 5.1 H Albumin/Globulin Ratio 0.6 L Blood Type Antibody Screen 10/02/22 10/03/22 10/03/22 16:26 05:34 05:34 WBC 8.19 RBC 3.74 L Hgb 8.5 L Hct 28.9 L MCV 77.3 L MCH 22.7 L MCHC 29.4 L RDW Std Deviation 41.9 RDW Coeff of Fely 15.2 H Plt Count 323 MPV 8.5 L Immature Gran % (Auto) 0.4 Neut % (Auto) 52.9 Lymph % (Auto) 22.8 [place] % (Auto) 11.8 Eos % (Auto) 11.2 Baso % (Auto) 0.9 Neut # (Auto) 4.33 Lymph # (Auto) 1.87 [place] # (Auto) 0.97 H Eos # (Auto) 0.92 H Baso # (Auto) 0.07 Immature Gran # (Auto) 0.03 PT INR APTT PTT Ratio D-Dimer ABG pH ABG pCO2 ABG pO2 ABG HCO3 ABG O2 Saturation ABG Base Excess Charanjit Test Barometric Pressure Oxygen Given Sodium 137 Potassium 3.8 Chloride 103 Carbon Dioxide 29 Anion Gap 5 BUN 10 Creatinine 0.99 Est Cr Clr Drug Dosing 91.6 Est GFR ( Amer) 91.6 Est GFR (Non-Af Amer) 79.0 BUN/Creatinine Ratio 10.1 Glucose 110 H Calcium 8.2 L Iron Transferrin Ferritin Total Bilirubin AST ALT Alkaline Phosphatase Troponin I High Sens Total Protein Albumin Globulin Albumin/Globulin Ratio Blood Type A Positive Antibody Screen NEGATIVE 10/03/22 10/03/22 10/03/22 15:47 17:03 17:58 WBC RBC Hgb Hct MCV MCH MCHC RDW Std Deviation RDW Coeff of Fely Plt Count MPV Immature Gran % (Auto) Neut % (Auto) Lymph % (Auto) [place] % (Auto) Eos % (Auto) Baso % (Auto) Neut # (Auto) Lymph # (Auto) [place] # (Auto) Eos # (Auto) Baso # (Auto) Immature Gran # (Auto) PT INR APTT PTT Ratio D-Dimer 79755 H* ABG pH Cancelled 7.43 ABG pCO2 Cancelled 44 ABG pO2 Cancelled 84 ABG HCO3 Cancelled 29 H ABG O2 Saturation Cancelled 97.1 H ABG Base Excess Cancelled 4.2 H Charanjit Test Cancelled Pos Barometric Pressure Cancelled Oxygen Given Cancelled 2L Sodium Potassium Chloride Carbon Dioxide Anion Gap BUN Creatinine Est Cr Clr Drug Dosing Est GFR ( Amer) Est GFR (Non-Af Amer) BUN/Creatinine Ratio Glucose Calcium Iron Transferrin Ferritin Total Bilirubin AST ALT Alkaline Phosphatase Troponin I High Sens Total Protein Albumin Globulin Albumin/Globulin Ratio Blood Type Antibody Screen 10/04/22 10/04/22 10/04/22 06:51 06:51 18:51 WBC 8.98 RBC 3.93 L Hgb 9.1 L 8.7 L Hct 30.0 L 28.8 L MCV 76.3 L MCH 23.2 L MCHC 30.3 L RDW Std Deviation 42.3 RDW Coeff of Fely 15.3 H Plt Count 324 MPV 8.2 L Immature Gran % (Auto) 0.6 Neut % (Auto) 53.3 Lymph % (Auto) 25.6 [place] % (Auto) 10.0 Eos % (Auto) 9.7 Baso % (Auto) 0.8 Neut # (Auto) 4.79 Lymph # (Auto) 2.30 [place] # (Auto) 0.90 H Eos # (Auto) 0.87 H Baso # (Auto) 0.07 Immature Gran # (Auto) 0.05 PT INR APTT PTT Ratio D-Dimer ABG pH ABG pCO2 ABG pO2 ABG HCO3 ABG O2 Saturation ABG Base Excess Charanjit Test Barometric Pressure Oxygen Given Sodium 137 Potassium 4.0 Chloride 102 Carbon Dioxide 32 Anion Gap 3 BUN 7 Creatinine 0.86 Est Cr Clr Drug Dosing 105.4 Est GFR ( Amer) 104.7 Est GFR (Non-Af Amer) 90.4 BUN/Creatinine Ratio 8.1 L Glucose 92 Calcium 8.6 Iron 19 L Transferrin 170 L Ferritin 35.6 Total Bilirubin AST ALT Alkaline Phosphatase Troponin I High Sens Total Protein Albumin Globulin Albumin/Globulin Ratio Blood Type Antibody Screen 10/05/22 10/05/22 10/05/22 00:17 07:49 07:49 WBC 6.62 RBC 3.78 L Hgb 8.5 L 8.7 L Hct 28.0 L 28.4 L MCV 75.1 L MCH 23.0 L MCHC 30.6 L RDW Std Deviation 40.7 RDW Coeff of Fely 15.0 H Plt Count 320 MPV 8.2 L Immature Gran % (Auto) 0.5 Neut % (Auto) 52.8 Lymph % (Auto) 22.5 [place] % (Auto) 13.1 Eos % (Auto) 10.3 Baso % (Auto) 0.8 Neut # (Auto) 3.50 Lymph # (Auto) 1.49 [place] # (Auto) 0.87 H Eos # (Auto) 0.68 H Baso # (Auto) 0.05 Immature Gran # (Auto) 0.03 PT INR APTT PTT Ratio D-Dimer ABG pH ABG pCO2 ABG pO2 ABG HCO3 ABG O2 Saturation ABG Base Excess Charanjit Test Barometric Pressure Oxygen Given Sodium 136 Potassium 3.8 Chloride 102 Carbon Dioxide 31 Anion Gap 3 BUN 6 Creatinine 0.86 Est Cr Clr Drug Dosing 107.5 Est GFR ( Amer) 104.7 Est GFR (Non-Af Amer) 90.4 BUN/Creatinine Ratio 7.0 L Glucose 94 Calcium 8.3 L Iron Transferrin Ferritin Total Bilirubin 0.4 AST 15 ALT 10 Alkaline Phosphatase 247 H Troponin I High Sens Total Protein 6.9 Albumin 2.6 L Globulin 4.3 H Albumin/Globulin Ratio 0.6 L Blood Type Antibody Screen Chest X-Ray 10/02/22 16:20 XR chest 1V portable HISTORY: 67 years-old Male sob acute shortness of breath COMPARISON: 07/23/2020 TECHNIQUE: AP view of the chest FINDINGS: Cardiac silhouette is enlarged. No pneumothorax, pleural effusion, airspace consolidation or pulmonary edema. Degenerative changes of the shoulders and spine. IMPRESSION: No acute process. ACT 112: Negative or not required by law. The above report was generated using voice recognition software. It may contain grammatical, syntax or spelling errors. Electronically signed by: Ernesto Orantes M.D. 10/02/2022 5:01 PM Venous Doppler Study 10/03/22 12:55 BILATERAL LOWER EXTREMITY VENOUS DOPPLER HISTORY: R thigh pain, b/l swelling, eval for dvt COMPARISON STUDY: Left leg venous Doppler 02/23/2016. Right leg venous Doppler 09/16/2015. FINDINGS: The left common femoral and left superficial femoral veins are patent. There is nonocclusive thrombus seen within the left popliteal vein. The left anterior tibial and posterior tibial veins appear patent. The left peroneal vein is not clearly identified. There is also nonocclusive thrombus seen within the mid to distal right superficial femoral vein and right popliteal vein. The right common femoral vein, anterior tibial, posterior tibial veins appear patent. The right peroneal vein are not well visualized. IMPRESSION: Bilateral lower extremity nonocclusive DVT as described above. This is age indeterminate but could be chronic. ACT 112: Negative or not required by law. Electronically signed by: Aamir Sanders M.D. 10/03/2022 2:16 PM Chest CTA 10/03/22 14:32 CT angio chest PE protocol CT DOSE: 1015.86 mGy.cm HISTORY: 67 years-old Male with DVT, hypoxia. Acute shortness of breath with hypoxia TECHNIQUE: Multiple CTA images of the chest were obtained after the intravenous administration of 117 ml Optiray. Coronal and sagittal MIPS were obtained from the axial data set and were submitted for review. All measurements were obtained according to NASCET criteria. A dose lowering technique was utilized adhering to the principles of ALARA. COMPARISON: Chest radiograph 10/02/2022, CTA chest 03/12/2016 FINDINGS: Study is degraded by respiratory motion artifact and upper extremity positioning. CTA: Moderate cardiomegaly. Atherosclerosis of the thoracic aorta without aneurysm or dissection. Suboptimal violation of the pulmonary arterial tree secondary to contrast bolus timing an respiratory motion artifact. No central pulmonary emboli identified. CT CHEST: Unremarkable thyroid. A single mildly enlarged nonspecific right axillary chain lymph node measures up to 1.5 cm in short axis which previously measured 1.1 cm. Subcentimeter mediastinal and hilar lymph nodes. No pneumothorax, pleural effusion, airspace consolidation or pulmonary edema. Mild dependent subsegmental bibasilar atelectasis with pulmonary emphysema. Bronchial wall thickening. No suspicious nodules or masses. 6 mm fissural nodule involving the right middle lobe on image 122 is stable and benign. Cholecystectomy. No acute process of the imaged upper abdomen. Hepatosp lenomegaly with hepatic steatosis. Unremarkable soft tissues. No acute fracture. Degenerative changes of the shoulders and spine. IMPRESSION: 1. Limited exam as above. No central pulmonary emboli identified. 2. Cardiomegaly without pulmonary edema. 3. Emphysema with bronchitis and mild bibasilar atelectasis. 4. Hepatosplenomegaly with hepatic steatosis. 5. Cholecystectomy. 6. Single mildly enlarged nonspecific right axillary chain lymph node. ACT 112: Negative or not required by law. The above report was generated using voice recognition software. It may contain grammatical, syntax or spelling errors. Electronically signed by: Ernesto Orantes M.D. 10/03/2022 4:53 PM 10/03/22 12:55 US venous doppler LE Routine 10/03/22 14:32 CT for pulmonary embolism PE [CT angio chest PE protocol] Urgent Hospital Course (1) Anemia: (2) Acute lower GI bleeding: (3) COPD (chronic obstructive pulmonary disease): (4) Lower extremity deep venous thrombosis: Plan 67 y/o male who is here due to lower GI active bleeding since 2 days ago. Patient was previously hospitalization due to rectal bleeding and diarrhea, was thought to be infectious. 2 days before admission, bright red bleeding started again. He soaked about 8-10 depends came with symptoms of weakness, SOB, lightheadedness. No abdominal pain, no chest pain. On arrival his hbg found to 9.4. Gastroenterology was consulted, they recommended Colonoscopy showing diffused moderately erythematous, friable (with contact bleeding), granular and inflamed mucosa found on rectum, sigmoid , descending colon and transverse colon. Biopsy were taken during procedure. Patient was oriented about findings, and importance on following the result outpatient with Gastroenterology. His H/h during the stay has been stable. During the admission, he complains of some leg and calf pain, welling and itching. Mostly chronic, but has been worse in this admission. Bilateral venous Doppler was done: BLT DVT was found (nonocclusive thrombus seen within the left popliteal vein, nonocclusive thrombus seen within the mid to distal right superficial femoral vein and right popliteal vein) Seem to be chronic. CTA showed no Pulmonary embolism. Vascular surgery consulted, anticoagulation not indicated at the moment, IVC filter not necessary at this moment. Patient was suspected to being treated for COPD in the past. We notice SOB during this admission with need of nasal cannula. CXR with no acute process. Patient was started on Triple therapy: albuterol/ipratropium, Fluticasone/ Vilanterol, Umeclidium [place]. Patient was oriented about the need for PFTs as outpatient. Patient was eager to leave the hospital today after colonoscopy was done. Patient denied any bleeding, Hgb is stable at 8.7 d/gl. Patient was oriented about importance of following biopsy outpatient, referral with Gastroenterology was made. Recommended to follow up with PCP within one week. Total Time Total Time Spent Total Time Spent (In Minutes): see attending attestation. Discharge Plan Discharge Items Patient Disposition: Home - Self-Care Reason For Visit: RECURRENT GI BLEEDING Discharge Diagnosis: Recurrent GI bleed Condition on Discharge: Fair Activity: Per Instructions section Non-emergency contact: Primary Care Provider and [facility] Call non-emergency contact if: you have any medication questions and your symptoms worsen Follow-up/Referrals: JesicaDoc Stoner MD [Primary Care Provider] - (patient will make follow up appointments at OR) Ludivina Huynh Jr, MD [Physician] - Diet: Regular Addtl Attending Provider Instructions: You were seen at the hospital for concern of recurrence of a lower GI bleed. For this reason you were prepped for a colonoscopy which was completed at the day of discharge. Your colonoscopy did show concerning lesions that could be consistent with a disease called ulcerative colitis. Regardless of what exactly it is your colon does have inflammation that is causing a lower GI bleed. Fortunately, your bleeding has subsided and your hemoglobin has been stable for the past 24 to 48 hours. We would prefer you to stay overnight since you are just off of anesthesia, however, you were adamant about leaving the hospital tonight. Because of this, the pathology results will not be completed by the time you leave the hospital. It is very important that you find out the results of the biopsy. This is because ulcerative colitis not only can cause recurrent GI bleeds but it also can increase your risk for other disorders such as colon cancer, malnutrition, dehydration, blood clots and osteoporosis. Ulcerative colitis can also result in flareups that can be very painful and will require steroids. We will not know exactly what your colitis is until the pathology results return, however, the food processing plant manager felt that the clinical vignette and colonoscopy results aligned with ulcerative colitis. If your bleeding returns or you begin feeling short of breath, lightheaded, dizzy, or pale, these may be signs that your bleeding has returned and you may require a transfusion; if this does occur, please return to the hospital for reevaluation and treatment. I recommend over the next week you do not take any NSAIDs such as ibuprofen, aspirin, naproxen, etc. For pain, Tylenol is acceptable to take and will not increase your bleeding risk. Additionally while you are here, it is suspected that you may have something called COPD (chronic obstructive pulmonary disease). Unfortunately we are unable to do the testing that can confirm this diagnosis inpatient, so I recommend you discuss this with your primary care provider who will be able to help you out further with getting this testing done. We are also placing a referral to gastroenterology for you to follow-up with. You will be called with an appointment and they will set up a time that works for you. There are no new medications that are being started for you from this admission. If you have any questions or concerns, do not hesitate to call the hospital and we will reach out to you. Is been a pleasure to be a part of your care and we wish you the best in both your health and recovery. Pending Studies at Discharge: Yes Studies:: Colonoscopy pathology results Stand-Alone Forms: My [facility], Smoking Cessation Medications and DC Order Prescriptions: Continued alogliptin 12.5 mg tablet 12.5 mg PO DAILY gabapentin 300 mg Capsule 900 mg PO BID pantoprazole 20 mg Tablet,Delayed Release (Dr/Ec) 20 mg PO QAM baclofen 10 mg Tablet 10 mg PO BID levothyroxine 50 mcg Capsule 50 mcg PO DAILY Discontinued vancomycin 125 mg capsule 125 mg PO DAILY Discharge Orders: Discharge Order (Routine); Ordered 10/05/22 Ordered By: Leroy Fishman Admission Data Admit Date/Time: 10/02/22 19:18 Attending Provider: Annamarie Nguyen Admit Provider: [place]o [place] Primary Care Provider: Doc Morejon Other Providers: George Bland ; Ludivina Huynh Jr ; Jeremy Delvalle ; Jono Park ; [facility] Other Interventions: Discharge Summary Assessment (RN) Last Done: 10/05/22 16:13 Supervising Physician Co-Signing Physician Notes Resident Physician Supervision Note: I independently interviewed and examined the patient and verified the noel history and physical, reviewed labs and image studies and agree with resident findings and care plan. Resident Activity Tracking Resident Involvement: Resident Care Provided Care Provided: Adult Hospital Medicine
--- NOTE | 2022-10-07 09:15 | Anesthesiology Progress Note ---
Date of Service October 05, 2022 Anesthesia Post Procedure Pain Intensity Right Leg: Pain Intensity: 0 Transfer of Care Handoff Completed per policy Notes Mental Status: alert / awake / arousable and participated in evaluation Patient Amnestic to Procedure: Yes Nausea / Vomiting: adequately controlled Pain: adequately controlled Airway Patency, RR, SpO2: stable & adequate BP & HR: stable & adequate Hydration State: stable & adequate Anesthetic Complications: no major complications apparent and Pt Satisfied with anesthetic care
--- NOTE | 2022-10-07 09:49 | Coding Query ---
PATHOLOGY To promote full compliance with coding requirements relating to patient care, physician participation is requested in all cases of munitions handler supervisor uncertainty. Please assist us with the question(s) below: Please review the Pathology report and please document any relevant diagnosis(es) below: Pt admitted with rectal bleed. Large intestine biopsies done. Diagnosis(es): Ulcerative colitis Thank you [facility]
--- NOTE | 2022-10-07 12:35 | Communication Note ---
Date of Service: October 07, 2022 Called patient discussing his questions regarding his chronic deep vein thrombosis in his lower extremity. Explained that he does not require anticoagulation because they are chronic and his veins are patent. Patient was understanding of this and appreciative of the phone call. While I had him on the phone, I discussed with him his pathology results which was indicative of ulcerative colitis. He is still having blood-tinged stools. I had discussed this with the pulp press tender, Dr. Huynh, who agreed that the patient should be started on a prednisone taper and have close GI follow-up. Prednisone taper sent to [facility] per pt request. GI referral order has been placed and nurse navigation consult ordered to help ensure close GI follow-up. Gave patient return to ED instructions if he were to feel lightheaded, nauseous, short of breath, having chest pain, or if GI bleeding increases. Patient understanding of plan and in agreement.
== END 2022-10-05 19:50 | disposition home or self-care (01) | DRG 386 ==
LOC: ED 15:54 → SUATTDRO 19:18 → 3E 19:18 → 2S 10-03 16:34